=== PATIENT | male | born 1960 | race American Indian/Alaskan Native ===

== ENCOUNTER 2017-07-18 12:06 | Emergency (ER) | payer OTHER ==
[~2017-07-18] VITALS: Ht 162.6 cm; Wt 50.1 kg
[~2017-07-18 12:06] MED LIST: ALLOPURINOL300 MG PO; BENTYL10 MG PO; BUPROPION HCL150 M2 PO; BUPROPION XL150 MG PO; CENTRUM SILVER1 EAC2 PO; CLARITIN10 MG PO; FERROUS SU220 MG/52 PO; FERROUS SU300 MG/5 M PO; FLOMAX0.4 MG PO; KETOROLAC TROME10 MG PO; LORATADINE10 MG PO; METOPROLOL TART25 MG PO; MILK OF MA400 MG/5 M PO; ONDANSETRON ODT4 MG PO; OXYCODONE HCL10 MG PO; OXYCODONE-ACET1 EAC1 PO; PANTOPRAZOLE SO40 MG PO; PRILOSEC10 M1 PO; PRILOSEC10 M1 PT; PROTONIX40 MG PO
--- OUTSIDE RECORDS SUMMARY | 2017-07-18 12:43 | XMS | Clinical Summary ---
Demographics + + + | Address | [address] | | | [place] [address] | + + + | Home Phone | | + + + | Preferred Language | Unknown | + + + | Marital Status | Single | + + + | Druze Affiliation | ZEFERINO | + + + | Race | or | + + + | Ethnic Group | Not or | + + + Author + + + | Author | NON REVENUE LOCATIONS | + + + | Organization | NON REVENUE LOCATIONS | + + + | Address | Unknown | + + + | Phone | Unavailable | + + + Support +------+ +---------+ + | Name | Relationship | Address | Phone | +------+ +---------+ + ECON | Unknown | | +------+ +---------+ + Care Team Providers + +------+ + | Care Cold Press Operator Name | Role | Phone | + +------+ + | Ed Landis MD | PP | Unavailable | + +------+ + Source Comments EVETTE is fully live on both [facility] Ambulatory and [facility] InPatient.[facility] & [facility] Allergies + + + + + + | Active Allergy | Reactions | Severity | Noted | Comments | | | | | Date | | + + + + + + | Naproxen | Hives | | 03/21/20 | | | | | | 14 | | + + + + + + Current Medications + + + +---------+------+------+-------+ | Prescription | Sig. | Disp. | Refills | Star | End | Statu | | | | | | t | Date | s | | | | | | Date | | | + + + +---------+------+------+-------+ | buPROPion SR 150 | Take 150 mg by mouth | | | | | Activ | | mg oral tablet | two times daily. | | | | | e | | extended release | | | | | | | + + + +---------+------+------+-------+ | loratadine 10 mg | Take 10 mg by mouth | | | | | Activ | | oral tablet | once daily. | | | | | e | + + + +---------+------+------+-------+ | dicyclomine 10 mg | Take 20 mg by mouth | | | | | Activ | | oral | four times daily as | | | | | e | | capsuleIndications: | needed. Indications: | | | | | | | Irritable Bowel | Irritable Bowel | | | | | | | Syndrome | Syndrome | | | | | | + + + +---------+------+------+-------+ | multivitamin oral | Take 1 tablet by | | | | | Activ | | tablet | mouth once daily. | | | | | e | + + + +---------+------+------+-------+ | acetaminophen 325 | Take 1-2 tablets by | | | 07/20 | | Activ | | mg oral tablet | mouth every four | | | 220 | | e | | | hours as needed. | | | 17 | | | + + + +---------+------+------+-------+ | ascorbic acid, | Take 1 tablet by | | | 07/20 | | Activ | | vitamin C, 500 mg | mouth once daily. | | | 220 | | e | | oral tablet | | | | 17 | | | + + + +---------+------+------+-------+ | polyethylene | Mix 17 g in liquid | 119 g | | 07/20 | | Activ | | glycol 17 gram/dose | and drink once | | | 2/20 | | e | | oral powder | daily. | | | 17 | | | + + + +---------+------+------+-------+ | ondansetron 8 mg | Take 1 tablet by | 20 | 0 | 01/1 | | Activ | | oral tablet | mouth every eight | tablet | | 2/20 | | e | | | hours as needed for | | | 17 | | | | | nausea/vomiting. | | | | | | + + + +---------+------+------+-------+ | oxyCODONE, | Take 1 to 2 tablets | 30 | 0 | 01/1 | | Activ | | immediate release, 5 | by feeding tube | tablet | | 2/20 | | e | | mg oral tablet | route every six | | | 17 | | | | | hours as needed for | | | | | | | | moderate pain. For | | | | | | | | severe pain and | | | | | | | | discomfortTake stool | | | | | | | | softeners (such as | | | | | | | | miralax) while | | | | | | | | taking oxycodone | | | | | | + + + +---------+------+------+-------+ | omeprazole 2 mg/mL | Take 10 mL by | 600 mL | 0 | 07/20 | | Activ | | oral suspension | feeding tube route | | | 10/06 | | e | | (compound) | two times daily. | | | 17 | | | + + + +---------+------+------+-------+ | ferrous sulfate | Take 5 mL by mouth | 473 mL | 5 | 07/21 | | Activ | | 220 mg total salt | two times daily. | | | 10/06 | | e | | (44 mg elemental)/5 | | | | 17 | | | | mL oral solution | | | | | | | + + + +---------+------+------+-------+ Active Problems + + + | Problem | Noted Date | + + + | Benign esophageal stricture | 08/12/2016 | + + + | S/P dilatation of esophageal stricture | 08/12/2016 | + + + | Severe protein-calorie malnutrition (Sen: less than 60% of | 08/12/2016 | | standard weight) (HCC) | | + + + | Superior mesenteric artery syndrome (HCC) | 08/12/2016 | + + + | Bowel obstruction | 07/22/2016 | + + + | Adrenal mass (HCC) | 08/06/2014 | + + + Family History + + +------+ + | Medical History | Relation | Name | Comments | + + +------+ + | Heart Disease | Father | | [place] age 40's | + + +------+ + + +------+--------+ + | Relation | Name | Status | Comments | + +------+--------+ + | Father | | Alive | | + +------+--------+ + | Mother | | Alive | | + +------+--------+ + Social History + + + +--------+ + | Tobacco Use | Types | Packs/Day | Years | Date | | | | | Used | | + + + +--------+ + | Former Smoker | Cigarettes | 1 | 3 | Quit: 06/02/1974 | + + + +--------+ + + +---+---+---+ | Smokeless Tobacco: | | | | | Never Used | | | | + +---+---+---+ + + +---------+ + | Alcohol Use | Drinks/We | oz/Week | Comments | | | ek | | | + + +---------+ + | No | 0-1 | 0.0 - | 1-2 per month-mixed drinks | | | Standard | 0.5 | | | | drinks or | | | | | | | | | | equivalen | | | | | t | | | + + +---------+ + + + + | Sex Assigned at | Date Recorded | | | | + + + | Not on file | | + + + Last Filed Vital Signs + + + + | Vital Sign | Reading | Time Taken | + + + + | Blood Pressure | 112/79 | 09/17/2016 5:46 PM PST | + + + + | Pulse | 98 | 09/17/2016 4:50 PM PST | + + + + | Temperature | 36.7 C (98.1 F) | 09/17/2016 2:15 PM PST | + + + + | Respiratory Rate | 14 | 09/17/2016 5:46 PM PST | + + + + | Oxygen Saturation | 100% | 09/17/2016 5:46 PM PST | + + + + | Inhaled Oxygen | - | - | | Concentration | | | + + + + | Weight | 46.5 kg (102 lb 9.6 | 08/11/2016 3:39 PM PST | | | oz) | | + + + + | Height | 162.6 cm (5' 4") | 07/22/2016 3:38 AM PST | + + + + | Body Mass Index | 17.61 | 08/11/2016 3:39 PM PST | + + + + Plan of Treatment + + + + + | Health Maintenance | Due Date | Last Done | Comments | + + + + + | INFLUENZA VACCINE | | 05/01/2016, 07/02/2009, | | | (FLU SHOT) | 7 | 07/02/2004 | | + + + + + Results Not on filefrom Last 3 Months
[2017-07-18] MEDS ORDERED: ZOFRAN ODT4 MG PO (13:03)
== END 2017-07-18 13:07 | disposition home or self-care (01) ==
LOC: ED 12:06
DX: K21.9 Gastro-esophageal reflux disease without esophagitis (principal); Z88.8 Allergy status to other drugs, medicaments and biological substances; Z91.018 Allergy to other foods; Z79.899 Other long term (current) drug therapy
CPT/HCPCS: 99283

== ENCOUNTER 2017-11-11 11:11 | Emergency (ER) | payer OTHER ==
[~2017-11-11] VITALS: Ht 162.6 cm; Wt 45.6 kg
--- OUTSIDE RECORDS SUMMARY | ~2017-11-11 | XMS | Clinical Summary ---
Demographics + + + | Address | [address] | | | [place] [address] | + + + | Home Phone | | + + + | Preferred Language | Unknown | + + + | Marital Status | Single | + + + | Latter Day Affiliation | ZEFERINO | + + + [...] | + + + Support + + +---------+ + | Name | Relationship | Address | Phone | + + +---------+ + | Yennifer Lester | ECON | Unknown | | + + +---------+ + Care Team Providers + +------+ + | Care Track Laying Machine Operator Name | Role | Phone | + +------+ + | Ed Landis MD | PP | Unavailable | + +------+ + Source Comments EV[facility]TE is fully live [facility] & [facility] Allergies + + + + + + [...] | mouth once daily. | | | 2/20 | | e | | oral tablet [...] | Heart Disease | Father | | [place] age 40's | + + +------+ + [...] 07/02/2009, | | | (FLU SHOT) | 8 | 07/02/2004 | | + + + + + Results Not on filefrom Last 3 Months
--- OUTSIDE RECORDS SUMMARY | ~2017-11-11 | XMS | Clinical Summary ---
Demographics + + + | Address | [address] | | | [place] [address] | + + + | Home Phone [...] Team Providers + +------+ + | Care Messaging Architect Name | Role | Phone | + +------+ + | Ed Landis MD | PP | Unavailable | + +------+ + Source Comments [facility] Allergies + + + + + + [...] | Heart Disease | Father | | [place] age 40's | + + +------+ + [...]
[~2017-11-11 11:11] MED LIST changes: +ZOFRAN ODT4 MG PO
[2017-11-11] MEDS ORDERED: PEPCID20 MG PO (13:37)
== END 2017-11-11 13:48 | disposition home or self-care (01) ==
LOC: ED 11:11
DX: R10.13 Epigastric pain (principal); Z88.8 Allergy status to other drugs, medicaments and biological substances; Z91.018 Allergy to other foods; Z91.02 Food additives allergy status; Z79.899 Other long term (current) drug therapy
CPT/HCPCS: 80053; 81001; 82150; 83690; 85025; 96374; 96375; 96376; 99283; J1170; J2405; J7030

== ENCOUNTER 2019-04-11 12:10 | Emergency (ER) | payer OTHER ==
[~2019-04-11] VITALS: Ht 162.6 cm; Wt 45.6 kg
[~2019-04-11 12:10] MED LIST changes: +OMEPRAZOLE20 MG PO; +ONDANSETRON ODT8 MG PO; +PEPCID20 MG PO
--- OUTSIDE RECORDS SUMMARY | 2019-04-11 12:12 | XMS ---
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 \T\middot;\T\nbsp; [facility]. \T\middot;\ T\nbsp; [facility] CAN SEE PATIENTS SAME DAY FOR APTS IF PATIENT CALLS FIRST THING IN THE MORNING. 11/11/2017 [facility] - Patient was recently seen by PCP on 11/02/17. Pain is currently being managed by PCP Dr Landis. - Recently prescribed 10 hydrocodone 5/325 on 11/02/17 by PCP. - Patient currently has a referral to a GI doctor at [facility] since patient does not want to be seen by Dr Lewis. Care Recommendation: This patient has had 5 or more Emergency Department visits in the last 12 months. Patient requires education on the scope and purpose of the ED as an acute care provider not a Primary Care Provider and should not be utilized for chronic conditions. If patient returns to ED please contact Community Health WorkerIsabelle at [phone]. These are guidelines and the provider should exercise clinical judgment when providing care. E.D. VISIT COUNT (12 MO.) 2 [facility] TOTAL 2 NOTE: Visits indicate total known visits. ED/UCC VISIT TRACKING (12 MO.) 04/11/2019 12:[facility] [place] TYPE: Emergency COMPLAINT: - ABD PAIN, VOMITING 01/31/2019 11:[facility] [place] TYPE: Emergency COMPLAINT: - ABD PAIN DIAGNOSES: - Allergy status to analgesic agent status - Spinal muscular atrophy, unspecified - Allergy to other foods - Anemia, unspecified - Unspecified abdominal pain - Acute gastritis without bleeding INPATIENT VISIT TRACKING (12 MO.) No inpatient visits to display in this time frame [email or web address]
[2019-04-11] MEDS ORDERED: MIRALAX17 GM PO (12:29)
[2019-04-11] MEDS ORDERED: NORCO 5-325 TA1 EACH PO (16:42)
[2019-04-11] MEDS ORDERED: PROMETHAZINE HC25 M1 PO (16:42)
--- NOTE | 2019-04-11 18:16 | EKG ---
[facility] [address] [place] [address] Signed Sinus tachycardia Biatrial enlargement Abnormal ECG When compared with ECG of 21-JUL-2016 17:13, Nonspecific T wave abnormality no longer evident in Inferior leads Confirmed by BIBIANA BRYANT MD ([id number]) on 04/11/2019 6:16:48 PM Electronically Signed By: BIBIANA BYRANT MD 04/11/19 1816 PATIENT NAME: COREEN SEGOVIA Electrocardiogram DATE OF : 64 PHYSICIAN: BIBIANA BRYANT MD REPORT #: [id number] REPORT IS CONFIDENTIAL AND NOT TO BE RELEASED WITHOUT AUTHORIZATION
== END 2019-04-11 17:20 | disposition home or self-care (01) ==
LOC: ED 12:10
DX: R10.13 Epigastric pain (principal); R11.10 Vomiting, unspecified; Z91.018 Allergy to other foods; Z88.6 Allergy status to analgesic agent; Z79.899 Other long term (current) drug therapy
CPT/HCPCS: 74150; 74160; 74177; 80053; 83690; 85025; 93005; 93010; 96361; 99284-25; J1170; J2765; J7030; Q9967

== ENCOUNTER 2019-07-17 09:51 | Emergency (ER) | payer OTHER ==
[~2019-07-17] VITALS: Ht 162.6 cm; Wt 45.6 kg
--- OUTSIDE RECORDS SUMMARY | ~2019-07-17 | XMS | Clinical Summary ---
Demographics + + + | Address | [address] | | | [place] [address] | + + + | Home Phone | | + + + | Preferred Language | Unknown | + + + | Marital Status | Single | + + + | Buddhism Affiliation | ZEFERINO | + + + [...] | Unavailable | + + + Support + + + + + | Name | Relationship | Address | Phone | + + + + + | Yennifer Batista | ECON | [address] | | | | | [place] | | | | | [address] | | + + + + + Care Team Providers + +------+ + | Care Cooling Tower Technician Name | Role | Phone | + +------+ + | Ed Landis MD | PCP | | + +------+ + Source Comments EVETTE is fully live on both [facility] Ambulatory and [facility] InPatient.[facility] & [facility] Allergies + + + + + + | Active Allergy | Reactions | Severity | Noted | Comments | | | | | Date | | + + + + + + | Naproxen | Hives | | 03/21/20 | | | | | | 14 | | + + + + + + Medications + + + +---------+------+------+-------+ | Medication | Sig | Dispensed | Refills | Star | End | Statu | | | | | | t | Date | s | | | | | | Date | | | + + + +---------+------+------+-------+ | buPROPion SR 150 | Take 150 mg by mouth | | 0 | | | Activ | | mg oral tablet | two times daily. | | | | | e | | extended release | | | | | | | + + + +---------+------+------+-------+ | loratadine 10 mg | Take 10 mg by mouth | | 0 | | | Activ | | oral tablet | once daily. | | | | | e | + + + +---------+------+------+-------+ | omeprazole | Take 1 tablet by | 28 | 5 | 08/0 | | Activ | | magnesium (PRILOSEC | mouth once daily. | tablet | | 08/08 | | e | | OTC) 20 mg oral | Indications: Erosive | | | 18 | | | | tablet,delayed | Esophagitis | | | | | | | release | | | | | | | | (DR/EC)Indications: | | | | | | | | erosive esophagitis | | | | | | | + + + +---------+------+------+-------+ | special mouthwash | Take 5 mL by mouth | 300 mL | 0 | 06/19 | | Activ | | (Maalox/lidocaine/di | four times daily as | | | 09/08 | | e | | phenhydrAMINE) oral | needed. | | | 18 | | | | suspension | | | | | | | | (compound)Indication | | | | | | | | s: Esophageal | | | | | | | | stenosis | | | | | | | + + + +---------+------+------+-------+ | special mouthwash | Take 5 milliliters | 300 mL | 0 | / | | Activ | | (Maalox/lidocaine/di | by mouth four times | | | 2/20 | | e | | phenhydrAMINE) oral | daily as needed. | | | 18 | | | | suspension | | | | | | | | (compound) | | | | | | | + + + +---------+------+------+-------+ Active Problems + + + | Problem | Noted Date | + + + | Gastroesophageal reflux disease with esophagitis | 02/17/2018 | + + + | Polyp of colon | 01/08/2018 | + + + | Benign esophageal stricture | 08/12/2016 | + + + | S/P dilatation of esophageal stricture | 08/12/2016 | + + + | Severe protein-calorie malnutrition (Sen: less than 60% of | 08/12/2016 | | standard weight) | | + + + | Superior mesenteric artery syndrome | 08/12/2016 | + + + | Bowel obstruction | 07/22/2016 | + + + | Adrenal mass | 08/06/2014 | + + + Encounters +--------+ + + + + | Date | Type | Specialty | Care Team | Description | +--------+ + + + + | 05/30/ | Transcribe | Gastroenterology | Transcribe | | | 2019 | Orders | | Encounter, Provider, | | | | | | MD | | +--------+ + + + + | 05/23/ | Documentati | Gastroenterology | Lab, Gi Procedure | | | 2019 | on | | | | +--------+ + + + + from Last 3 Months Family History + + +------+ + | Medical History | Relation | Name | Comments | + + +------+ + | Heart Disease | Father | | [place] age 40's | + + +------+ + | Anesthesia | Neg Hx | | | + + +------+ + + +------+--------+ [...] | | | + +---+---+---+ + + + + + | Alcohol Use | Drinks/Week | oz/Week | Comments | + + + + + | No | 0-1 Standard | 0.0 - 0.8 | 1-2 per month-mixed | | | drinks or equivalent | | drinks | + + + + + + + + | Sex Assigned at | Date Recorded | | | | + + + | Not on file | | + + + + + + + | Job Start Date | Occupation | Industry | + + + + | Not on file | Not on file | Not on file | + + + + + + + + | Travel History | Travel Start | Travel End | + + + + + + | No recent travel history available. | + + Last Filed Vital Signs + + + + + | Vital Sign | Reading | Time Taken | Comments | + + + + + | Blood Pressure | 142/91 | 06/30/2018 5:09 PM | | | | | PST | | + + + + + | Pulse | 70 | 06/30/2018 5:09 PM | | | | | PST | | + + + + + | Temperature | 36.4 C (97.5 F) | 06/30/2018 5:09 PM | | | | | PST | | + + + + + | Respiratory Rate | 12 | 06/30/2018 4:43 PM | | | | | PST | | + + + + + | Oxygen Saturation | 100% | 06/30/2018 5:09 PM | | | | | PST | | + + + + + | Inhaled Oxygen | - | - | | | Concentration | | | | + + + + + | Weight | 48.5 kg (107 lb) | 06/30/2018 2:00 PM | | | | | PST | | + + + + + | Height | 165.1 cm (5' 5") | 06/30/2018 2:00 PM | | | | | PST | | + + + + + | Body Mass Index | 17.81 | 06/30/2018 2:00 PM | | | | | PST | | + + + + + Plan of Treatment +--------+ + + + + | Date | Type | Specialty | Care Team | Description | +--------+ + + + + | 11/02/ | Telephone-S | Pre-operative | | | | 2020 | cheduled | Medicine | | | +--------+ + + + + | 11/10/ | Hospital | | Efrain Mcmullen MD | | | 2019 | Encounter | | [address] | | | | | | [place], | | | | | | [place] [address] | | | | | | [phone] | | | | | | | | +--------+ + + + + | 11/10/ | Appointment | Procedural Care Unit | | | | 2019 | | | | | +--------+ + + + + | 11/10/ | Appointment | Gastroenterology | Efrain Mcmullen MD | | | 2019 | | | [address] | | | | | | [place], | | | | | | [place] [address] | | | | | | [phone] | | | | | | | | +--------+ + + + + + + + + + | Health Maintenance | Due Date | Last Done | Comments | + + + + + | Influenza (Flu) | | 06/16/2017, 05/01/2016, | | | vaccination (#1) | 9 | 08/22/2013, Additional history | | | | | exists | | + + + + + | Pneumococcal | Aged Out | 05/19/2014, 05/19/2014, | No longer eligible | | vaccination | | 12/27/2007 | based on patient's | | | | | age to complete this | | | | | topic | + + + + + Results Not on filefrom Last 3 Months Insurance + +--------+ +--------+-------+---------+--------+ | Payer | Benefi | Subscriber | Effect | Phone | Address | Type | | | t Plan | ID | dunia | | | | | | / | | Dates | | | | | | Group | | | | | | + +--------+ +--------+-------+---------+--------+ | HEALTH AND SAFETY INSPECTOR MEDICAID | HEALTH AND SAFETY INSPECTOR | xxxxxxxx | | | | Medica | | | [place] | | 014-Pr | | | id | | | [place] | | esent | | | | + +--------+ +--------+-------+---------+--------+ + +--------+ +--------+ + + | Guarantor Name | Accoun | Relation to | Date | Phone | Billing Address | | | t Type | Patient | of | | | | | | | | | | + +--------+ +--------+ + + | Franck Batista | Person | Self | [birth year] | [address] | | | [place] | | 1961 | [phone] | [place] [address] | | | doni | | | 9 (Home) | | + +--------+ +--------+ + + Advance Directives + + + + + | Code Status | Date | Date | Comments | | | Activated | Inactivated | | + + + + + | Full Code | 06/30/2018 | 07/01/2018 | | | | 1:59 PM | 12:01 AM | | + + + + + + + + +---+ | | | | | + + + +---+ | Full Code | 08/11/2016 | 08/11/2016 | | | | 1:09 PM | 9:19 PM | | + + + +---+ + + + +---+ | | | | | + + + +---+ | Full Code | 07/25/2016 | 08/01/2016 | | | | 9:40 AM | 9:59 PM | | + + + +---+ + + + +---+ | | | | | + + + +---+ | Full Code | 08/17/2014 | 08/22/2014 | | | | 10:33 AM | 4:51 PM | | + + + +---+
--- OUTSIDE RECORDS SUMMARY | ~2019-07-17 | XMS | Encounter Summary ---
Demographics + + + | Address | [address] | | | [place] [address] | + + + | Home Phone | | + + + | Preferred Language | Unknown | + + + | Marital Status | Single | + + + | Pentecostal Affiliation | ZEFERINO | + + + | Race | or | + + + | Ethnic Group | Not or | + + + Author + + + | Author | [facility] [employer] [facility] | + + + | Organization | [facility] [employer] [facility] | + + + | Address | Unknown | + + + | Phone | Unavailable | + + + Support + + + + + | Name | Relationship | Address | Phone | + + + + + | Yennifer Batista | ECON | [address] | | | | | [place] | | | | | [address] | | + + + + + Care Team Providers + +------+ + | Care Director Of Home Economics Name | Role | Phone | + +------+ + | Ed Landis MD PCP | | + +------+ + Encounter Details +--------+ + + + + | Date | Type | Department | Care Team | Description | +--------+ + + + + | 08/24/ | Telephone | Urology at [facility] | Theresa Beyer, | | | 2015 | | [address] | [address] [place] [address] | | | | | Mailcode: [id number] | [place] [address] | | | | | [facility] | [phone] | | | | | and [place], | | | | | | [facility] | | | | | | [place], [place] | | | | | | [address] | | | | | | [phone] | | | +--------+ + + + + Social History + + + +--------+ [...] | + + + + + | Yes | 0-1 Standard | 0.0 - 0.8 [...] recent travel history available. | + + documented as of this encounter Plan of Treatment +--------+ + + + [...] | | | | | | [place], | | | | | | [place] [address] | | | | | | [phone] | | | | | | | | +--------+ + + + + | 11/10/ | Appointment | Procedural Care Unit | | | | 2019 | | | | | +--------+ + + + + | 11/10/ | Appointment | Gastroenterology | Efrain Mcmullen MD | | | 2019 | | | [address] | | | | | | [place], | | | | | | [place] [address] | | | | | | [phone] | | | | | | | | +--------+ + + + + documented as of this encounter Visit Diagnoses Not on filedocumented in this encounter"
--- OUTSIDE RECORDS SUMMARY | ~2019-07-17 | XMS | Clinical Summary ---
Demographics + + + | Address | [address] | | | [place] [address] | + + + | Home Phone | | + + + | Preferred Language | Unknown | + + + | Marital Status | Single | + + + | Congregational Affiliation | ZEFERINO | + + + [...] + | Yennifer Batista | ECON | [address] | | | | | [place] | | | | | [address] | | + + + + + Care Team Providers + +------+ + | Care Supervisor Ore Dressing Name | Role | Phone | + +------+ + | Ed Landis MD | PCP | | + +------+ + Source Comments EVETTE is fully live on both Epic[facility] Ambulatory and Epic[facility] InPatient.[facility] & [facility] Allergies + + + + [...] | Heart Disease | Father | | [place] age 40's | + + +------+ + [...] | | | | | [place], | | | | | | [place] [address] | | | | | | [phone] | | | | | | | [...] | | | | | [place], | | | | | | [place] [address] | | | | | | [phone] | | | | | | | [...] | | | + +--------+ +--------+-------+---------+--------+ | 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
--- OUTSIDE RECORDS SUMMARY | ~2019-07-17 | XMS | Encounter Summary ---
Demographics + + + | Address | [address] | | | [place] [address] | + + + | Home Phone | | + + + | Preferred Language | Unknown | + + + | Marital Status | Single | + + + | Bahai Affiliation | ZEFERINO | + + + | Race | or | + + + | Ethnic Group | Not or | + + + Author + + + | Author | [facility] | + + + | Organization | [facility] [employer] [facility] | + + + | Address | Unknown | + + + | Phone | Unavailable | + + + Support + + + + + | Name | Relationship | Address | Phone | + + + + + | Yennifer Batista | ECON | [address] | | | | | [place] | | | | | [address] | | + + + + + Care Team Providers + +------+ + | Care Procurement Buyer Name | Role | Phone | + +------+ + | Ed Landis MD | PCP | | + +------+ + Encounter Details +--------+ + + + + | Date | Type | Department | Care Team | Description | +--------+ + + + + | 02/24/ | Inside | Endoscopic | Dar Dalton MD | | | 2018 | Referral | Procedural Unit at | [address] | | | | Order | [address] | [place], [place] | | | | | [place] | [address] | | | | | Mailcode: [id number] | [phone] | | | | | [place] | | | | | | [address] [place] | | | | | | [address] | | | | | | [phone] | | | +--------+ + + + [...] | | | | | | [place] [address] | | | | | | [phone] | | | | | | | | +--------+ + + + + | 11/10/ | Appointment | Procedural Care Unit | | | | 2019 | | | | | +--------+ + + + + | 11/10/ | Appointment | Gastroenterology | Efrain Mcmullen MD | | | 2020 | | | [address] | | | | | | [place], | | | | | | [place] [address] | | | | | | [phone] | | | | | | | | +--------+ + + + + documented as of this encounter Results COLONOSCOPY (06/30/2018 3:47 PM PST) + + | Specimen | + + | | + + + + --+ | Narrative | Performed A t | + + --+ | MRN: | [facility] | | [id number] Date: 06/30/2018Patient Name: Franck Mares #: | ENDOSCOPY | | [id number] of : 1960CSN: [id number] Type: | | | AmbulatoryRoom: GI 3Procedure: ColonoscopyIndications: | | | Screening for colorectal malignant neoplasmProviders: | | | RACHELLE JONES MD (Fellow), JOMAR CONRAD MD | | | (Doctor), CHIVO DONG RN (Nurse), | | | CHERRY MEJIA RN (Nurse), GENECREST | | | GEMINI (Block And Case Maker)Referring MD: DAR DALTNO, MDRequesting | | | Provider: Medicines: Monitored Anesthesia | | | CareComplications: No immediate complications.Procedure: | | | Pre-Anesthesia Assessment: - | | | The risks and benefits of the procedure and the | | | sedation options and risks were discussed with the | | | patient. All questions were answered and | | | informed consent was obtained. | | | - Patient identification and proposed procedure | | | were verified prior to the procedure by | | | the physician, the nurse, the | | | manager implementation and the medical laboratory technicians. The procedure | | | was verified in the procedure room. | | | Prior to the procedure, a History and Physical with | | | airway assessment was performed (see patient record), | | | and patient medications and allergies | | | were reviewed. The risks and benefits | | | of the procedure and the sedation | | | options and risks were discussed. All questions were | | | answered and informed consent was obtained. After | | | reviewing the risks and benefits, the | | | patient was deemed in satisfactory | | | condition to undergo the procedure. | | | Immediately prior to administration of medications, the | | | patient was re-assessed for adequacy to receive | | | sedatives. The heart rate, respiratory | | | rate, oxygen saturations, blood | | | pressure, adequacy of pulmonary | | | ventilation, and response to care were monitored | | | throughout the procedure. The physical status of the | | | patient was re-assessed after the procedure. | | | The procedure was aborted. The | | | colonoscope was not inserted. | | | Medications were given. The colonoscopy | | | was performed without difficulty. The | | | patient tolerated the procedure well.Estimated Blood Loss: | | | Estimated blood loss: none.Findings: The perianal exam findings | | | include solid stool in rectal vault.Impression: - Solid | | | stool in rectal vault found on perianal exam. | | | - Colonoscopy aborted. - No | | | specimens collected.Recommendation: - Discharge patient to | | | home (with escort). - Resume regular | | | diet today. - Repeat colonoscopy in 1 | | | year because the bowel preparation was | | | poor.Attending Participation: I was present and participated | | | during the entire procedure, including non-goldman portions.JOMAR | | | MD ANAMARIA06/30/2018 4:44:26 [facility] report has been signed | | | electronically.RACHELLE JONES MDNumber of Addenda: 0Note Initiated | | | On: 06/30/2018 3:47 [facility] Letter to: ED M. QUAEMPTS | | | I was present and participated during the entire procedure, including | | | non-goldman portions. | | |JOMAR CONRAD MD | | |06/30/2018 4:44:26 PM | | |This report has been signed electronically. | | |RACHELLE JONES MD | | |Number of Addenda: 0 | | |Note Initiated On: 06/30/2018 3:47 PM | | |CC Letter to: | | | ED NisreenFiorella LANDIS | | + + --+ + +---------+ + + | Performing | Address | City/State/Zipcode | Phone Number | | Organization | | | | + +---------+ + + | [facility] | | | | + +---------+ + + EGD (06/30/2018 3:45 PM PST) + + | Specimen | + + | | + + + + --+ | Narrative | Performed A t | + + --+ | MRN: | [facility] | | [id number] Date: 06/30/2018Patient Name: Franck Mares #: | ENDOSCOPY | | [id number] of : 1960CSN: [id number] Type: | | | AmbulatoryRoom: GI 3Procedure: Upper GI | | | endoscopyIndications: Dysphagia, Stenosis of the | | | esophagusProviders: RACHELLE JONES MD (Fellow), | | | JOMAR CONRAD MD (Doctor), CHIVO Flores | | | JARROD DONG (Nurse), CHERRY MEJIA, | | | RN (Nurse)Referring MD: PETR DE LUNAequesting Provider: | | | Medicines: Monitored Anesthesia CareComplications: | | | No immediate complications.Procedure: | | | Pre-Anesthesia Assessment: - The risks | | | and benefits of the procedure and the | | | sedation options and risks were discussed with the | | | patient. All questions were answered and informed | | | consent was obtained. | | | - Patient identification and proposed procedure were | | | verified prior to the procedure by the physician, | | | the nurse, the manager implementation and the | | | medical laboratory technicians. The procedure was verified | | | in the procedure room. Prior to the | | | procedure, a History and Physical with | | | airway assessment was performed (see patient record), | | | and patient medications and allergies were reviewed. | | | The risks and benefits of the procedure | | | and the sedation options and risks | | | were discussed. All questions were | | | answered and informed consent was obtained. After | | | reviewing the risks and benefits, the patient was deemed | | | in satisfactory condition to undergo the | | | procedure. Immediately prior to | | | administration of medications, the | | | patient was re-assessed for adequacy to receive | | | sedatives. The heart rate, respiratory rate, oxygen | | | saturations, blood pressure, adequacy of | | | pulmonary ventilation, and response to | | | care were monitored throughout the | | | procedure. The physical status of the | | | patient was re-assessed after the procedure. | | | The Olympus GIF-H190 Endoscope #[id number] was introduced | | | through the mouth, and advanced to the third | | | part of duodenum. The upper GI | | | endoscopy was accomplished without | | | difficulty. The patient tolerated the procedure | | | well.Estimated Blood Loss: Estimated blood loss: | | | none.Findings: LA Grade C (one or more mucosal breaks continuous | | | between tops of 2 or more mucosal folds, less than 75% | | | circumference) esophagitis with no bleeding was found 28 to 30 | | | cm from the incisors. One benign-appearing, intrinsic stenosis | | | was found 30 to 31 cm from the incisors. This stenosis was | | | severe (stenosis; an endoscope cannot pass) and measured 7 mm | | | (inner diameter) x less than one cm (in length). The stenosis | | | was traversed after dilation. A TTS dilator was passed through | | | the scope. Dilation with a 12-13.5-15 mm balloon dilator was performed | | | to 15 mm. A 7 cm hiatal hernia was present. The | | | entire examined stomach was normal. The examined duodenum was | | | normal.Impression: - LA Grade C reflux esophagitis. | | | - Benign-appearing esophageal stenosis. | | | Likely peptic. Dilated to 15 mm. | | | - 7 cm hiatal hernia. | | | - Normal stomach. - Normal | | | examined duodenum. - No specimens | | | collected.Recommendation: - Discharge patient to home (with | | | escort). - Resume regular diet today. | | | - Perform routine esophageal manometry at | | | appointment to be scheduled. | | | - Perform an esophagram at appointment to be | | | scheduled. - Refer to a surgeon, to | | | discuss fundoplication, pending above | | | testing.Attending Participation: I was present and participated | | | during the entire procedure, including non-goldman portions.JOMAR | | | MD ANAMARIA06/30/2018 4:43:02 PMThis report has been signed | | | electronically.RACHELLE JONES MDNumber of Addenda: 0Note Initiated | | | On: 06/30/2018 3:45 [facility] Letter to: ED LANDIS | | | above testing. | | |Attending Participation: | | | I was present and participated during the entire procedure, including | | | non-goldman portions. | | |JOMAR CONRAD MD | | |06/30/2018 4:43:02 PM | | |This report has been signed electronically. | | |RACHELLE JONES MD | | |Number of Addenda: 0 | | |Note Initiated On: 06/30/2018 3:45 PM | | |CC Letter to: | | | ED LANDIS | | + + --+ + +---------+ + + | Performing | Address | City/State[facility] | Phone Number | | Organization | | | | + +---------+ + + | [facility] | | | | + +---------+ + + documented in this encounter Visit Diagnoses + + | Diagnosis | + + | Benign esophageal stricture - Primary Stricture and stenosis of esophagus | + + | Gastro-esophageal reflux disease with esophagitis Reflux esophagitis | + + | Adenomatous polyp of ascending colon | + + documented in this encounter"
--- OUTSIDE RECORDS SUMMARY | ~2019-07-17 | XMS | Encounter Summary ---
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 Associated Diagnoses | Order Schedule | | | | ty | | | + + +--------+ + + | COMMUNICATION TO [facility] | Procedures | Routin | Preop examination | Ordered: 08/04/2014 | | LAB DRAW | | e | Adrenal mass (HCC) | | + + +--------+ + + documented as of this encounter Procedures + +--------+ + + + | Procedure Name | Priori | Date/Time | Associated Diagnosis | Comments | | | ty | | | | + +--------+ + + + | DE COLLECTION VENOUS | Routin | 08/04/2014 | Adrenal mass (HCC) | | | BLOOD,VENIPUNCTURE | e | 3:56 PM | | | | | | PST | | | + +--------+ + + + | HEMOGLOBIN A1C, POC | Routin | 08/04/2014 | Preop examination | Results for this | | | e | 3:22 PM | Adrenal mass (HCC) | procedure are in the | | | | PST | | results section. | + +--------+ + + + | ANTIBODY SCREEN | Routin | 08/04/2014 | Preop examination | Results for this | | | e | 3:08 PM | Adrenal mass (HCC) | procedure are in the | | | | PST | | results section. | + +--------+ + + + | TYPE AND SCREEN | Routin | 08/04/2014 | Preop examination | Results for this | | | e | 3:08 PM | Adrenal mass (HCC) | procedure are in the | | | | PST | | results section. | + +--------+ + + + | ABO & RH TYPE | Routin | 08/04/2014 | Preop examination | Results for this | | | e | 3:08 PM | Adrenal mass (HCC) | procedure are in the | | | | PST | | results section. | + +--------+ + + + | CBC (HEMOGRAM) ONLY | Routin | 08/04/2014 | Preop examination | Results for this | | | e | 3:07 PM | Adrenal mass (HCC) | procedure are in the | | | | PST | | results section. | + +--------+ + + + | INR | Routin | 08/04/2014 | Preop examination | Results for this | | | e | 3:07 PM | Adrenal mass (HCC) | procedure are in the | | | | PST | | results section. | + +--------+ + + + | COMPLETE METABOLIC | Routin | 08/04/2014 | Preop examination | Results for this | | SET | e | 3:07 PM | Adrenal mass (HCC) | procedure are in the | | (NA,K,CL,CO2,BUN,CRE | | PST | | results section. | | AT,GLUC,CA,AST,ALT,B | | | | | | LEANNA TOTAL,ALK | | | | | | PHOS,ALB,PROT TOTAL) | | | | | + +--------+ + + + | CBC ONLY | Routin | 08/04/2014 | Preop examination | Results for this | | | e | 3:07 PM | Adrenal mass (HCC) | procedure are in the | | | | PST | | results section. | + +--------+ + + + documented in this encounter Results HEMOGLOBIN A1C,POC (08/04/2014 3:22 PM PST) + +-------+ + + + | Component | Value | Ref Range | Performed | Pathologist | | | | | At | Signature | + +-------+ + + + | HEMOGLOBIN | 5.0 | 4.0 - 5.7 % | [facility], | | | A1C,POC | | | POINT OF | | | | | | CARE TESTS | | + +-------+ + + + + + | Specimen | + + | Blood | + + + + + + + | Performing | Address | City/State/Zipcode | Phone Number | | Organization | | | | + + + + + | [facility] | [address] | [place] [address] | | | OF CARE TESTS | | | | + + + + + ANTIBODY SCREEN (08/04/2014 3:08 PM PST) + + + + + + | Component | Value | Ref Range | Performed | Pathologist | | | | | At | Signature | + + + + + + | Antibody | Negative | | [facility] | | | Screen | | | LABORATORY | | | | | | SERVICES, | | | | | | TRANSFUSION | | | | | | MEDICINE | | + + + + + + + + | Specimen | + + | Blood - Blood | + + + + + + + | Performing | Address | City/State/Zipcode | Phone Number | | Organization | | | | + + + + + | [facility] | [address] | [place] [address] | | | SERVICES, | [address] | | | | TRANSFUSION MEDICINE | | | | + + + + + ABO & RH TYPE (08/04/2014 3:08 PM PST) + + + + + + | Component | Value | Ref Range | Performed | Pathologist | | | | | At | Signature | + + + + + + | ABO Group | O | | [facility] | | | | | | LABORATORY | | | | | | SERVICES, | | | | | | TRANSFUSION | | | | | | MEDICINE | | + + + + + + | Rh Type | Positive | | [facility] | | | | | | LABORATORY | | | | | | SERVICES, | | | | | | TRANSFUSION | | | | | | MEDICINE | | + + + + + + + + | Specimen | + + | Blood - Blood | + + + + + + + | Performing | Address | City/State/Zipcode | Phone Number | | Organization | | | | + + + + + | [facility] | [address] | [place] [address] | | | SERVICES, | [address] | | | | TRANSFUSION MEDICINE | | | | + + + + + CBC (HEMOGRAM) ONLY (08/04/2014 3:07 PM PST) + + + + + + | Component | Value | Ref Range | Performed | Pathologist | | | | | At | Signature | + + + + + + | WHITE CELL | 6.15 | 4.40 - 11.00 | [facility] | | | COUNT | | K/cu mm | LABORATORY | | | | | | SERVICES, | | | | | | CORE | | + + + + + + | RED CELL | 5.45 | 4.50 - 6.00 | [facility] | | | COUNT | | M/cu mm | LABORATORY | | | | | | SERVICES, | | | | | | CORE | | + + + + + + | HEMOGLOBIN | 12.3 (L) | 13.5 - 17.5 | [facility] | | | | | g/dL | LABORATORY | | | | | | SERVICES, | | | | | | CORE | | + + + + + + | HEMATOCRIT | 40.2 (L) | 41.0 - 53.0 % | [facility] | | | | | | LABORATORY | | | | | | SERVICES, | | | | | | CORE | | + + + + + + | MCV | 73.8 (L) | 80.0 - 96.0 fL | [facility] | | | | | | LABORATORY | | | | | | SERVICES, | | | | | | CORE | | + + + + + + | MCHC | 30.6 | 33.0 - 35.5 | [facility] | | | | | g/dL | LABORATORY | | | | | | SERVICES, | | | | | | CORE | | + + + + + + | RDW SD | 48.3 (H) | 35.1 - 46.3 fL | [facility] | | | | | | LABORATORY | | | | | | SERVICES, | | | | | | CORE | | + + + + + + | PLATELET | 366 | 150 - 400 K/cu | [facility] | | | COUNT | | mm | LABORATORY | | | | | | SERVICES, | | | | | | CORE | | + + + + + + | MPV | 9.5 (L) | 9.7 - 12.3 fL | [facility] | | | | | | LABORATORY | | | | | | SERVICES, | | | | | | CORE | | + + + + + + | NRBC% | 0.0 | 0.0 - 0.3 % | [facility] | | | | | | LABORATORY | | | | | | SERVICES, | | | | | | CORE | | + + + + + + | NRBC# | 0.00 | 0.00 - 0.02 | [facility] | | | | | K/cu mm | LABORATORY | | | | | | SERVICES, | | | | | | CORE | | + + + + + + + + | Specimen | + + | Blood - Blood | + + + + + + + | Performing | Address | City/State/Zipcode | Phone Number | | Organization | | | | + + + + + | [facility] | [address] | [place] [address] | | | SERVICES, CORE | [address] | | | + + + + + INR (08/04/2014 3:07 PM PST) + +-------+ + + + | Component | Value | Ref Range | Performed | Pathologist | | | | | At | Signature | + +-------+ + + + | INR | 0.99 | 0.90 - 1.20 INR | [facility] | | | | | | LABORATORY | | | | | | SERVICES, | | | | | | CORE | | + +-------+ + + + + + | Specimen | + + | Blood - Blood | + + + + + | Narrative | Performed At | + + + | INR Therapeutic ranges for full anticoagulation: INR for | [facility] | | Venous Thromboembolism (2.0 - 3.0) INR INR for | LABORATORY | | most patients with mech. valves (2.5 - 3.5) INR | SERVICES, CORE | + + + + + + + + | Performing | Address | City/State/Zipcode | Phone Number | | Organization | | | | + + + + + | [facility] | [address] | [place] [address] | | | SERVICES, CORE | [address] | | | + + + + + COMPLETE METABOLIC SET (NA,K,CL,CO2,BUN,CREAT,GLUC,CA,AST,ALT,BILI TOTAL,ALK PHOS,ALB,PROT TOTAL) (08/04/2014 3:07 PM PST) + +---------+ + + + | Component | Value | Ref Range | Performed | Pathologist | | | | | At | Signature | + +---------+ + + + | GLUCOSE, | 65 | 60 - 99 mg/dL | [facility] | | | PLASMA | | | LABORATORY | | | (LAB) | | | SERVICES, | | | | | | CORE | | + +---------+ + + + | BUN, PLASMA | 8 | 6 - 20 mg/dL | [facility] | | | (LAB) | | | LABORATORY | | | | | | SERVICES, | | | | | | CORE | | + +---------+ + + + | CREATININE | 0.87 | 0.70 - 1.30 | [facility] | | | PLASMA | | mg/dL | LABORATORY | | | (LAB) | | | SERVICES, | | | | | | CORE | | + +---------+ + + + | EGFR | >60 | >60 mL/min | [facility] | | | - | | | LABORATORY | | | IVORIAN | | | SERVICES, | | | | | | CORE | | + +---------+ + + + | EGFR NON | >60 | >60 mL/min | [facility] | | | -EFRA | | | LABORATORY | | | RICAN | | | SERVICES, | | | | | | CORE | | + +---------+ + + + | SODIUM, | 143 | 136 - 145 | [facility] | | | PLASMA | | mmol/L | LABORATORY | | | (LAB) | | | SERVICES, | | | | | | CORE | | + +---------+ + + + | POTASSIUM, | 3.8 | 3.4 - 5.0 | [facility] | | | PLASMA | | mmol/L | LABORATORY | | | (LAB) | | | SERVICES, | | | | | | CORE | | + +---------+ + + + | CHLORIDE, | 110 (H) | 97 - 108 mmol/L | [facility] | | | PLASMA | | | LABORATORY | | | (LAB) | | | SERVICES, | | | | | | CORE | | + +---------+ + + + | TOTAL CO2, | 25 | 21 - 32 mmol/L | [facility] | | | PLASMA | | | LABORATORY | | | (LAB) | | | SERVICES, | | | | | | CORE | | + +---------+ + + + | CALCIUM, | 9.2 | 8.6 - 10.2 | [facility] | | | PLASMA | | mg/dL | LABORATORY | | | (LAB) | | | SERVICES, | | | | | | CORE | | + +---------+ + + + | BILIRUBIN | 0.5 | 0.3 - 1.2 mg/dL | [facility] | | | TOTAL | | | LABORATORY | | | | | | SERVICES, | | | | | | CORE | | + +---------+ + + + | TOTAL | 8.2 | 6.4 - 8.2 g/dL | [facility] | | | PROTEIN, | | | LABORATORY | | | PLASMA | | | SERVICES, | | | (LAB) | | | CORE | | + +---------+ + + + | ALBUMIN, | 3.9 | 3.5 - 4.7 g/dL | [facility] | | | PLASMA | | | LABORATORY | | | (LAB) | | | SERVICES, | | | | | | CORE | | + +---------+ + + + | ALK PHOS | 97 | 53 - 128 U/L | [facility] | | | | | | LABORATORY | | | | | | SERVICES, | | | | | | CORE | | + +---------+ + + + | AST(SGOT) | 16 | 15 - 41 U/L | [facility] | | | | | | LABORATORY | | | | | | SERVICES, | | | | | | CORE | | + +---------+ + + + | ALT (SGPT) | 24 | 12 - 60 U/L | [facility] | | | | | | LABORATORY | | | | | | SERVICES, | | | | | | CORE | | + +---------+ + + + | ANION | 8 | 4 - 11 mmol/L | [facility] | | | GAP(ALB | | | LABORATORY | | | CORRECTED) | | | SERVICES, | | | | | | CORE | | + +---------+ + + + | POTASSIUM | No Hemo | | [facility] | | | CMNT | | | LABORATORY | | | | | | SERVICES, | | | | | | CORE | | + +---------+ + + + | BILI T CMNT | No Hemo | | [facility] | | | | | | LABORATORY | | | | | | SERVICES, | | | | | | CORE | | + +---------+ + + + | AST CMNT | No Hemo | | [facility] | | | | | | LABORATORY | | | | | | SERVICES, | | | | | | CORE | | + +---------+ + + + | ANION GAP | 8 | mmol/L | [facility] | | | | | | LABORATORY | | | | | | SERVICES, | | | | | | CORE | | + +---------+ + + + + + | Specimen | + + | Blood - Blood | + + + + + | Narrative | Performed At | + + + | GFR is estimated using the MDRD equation recommended by the | [facility] | | National Kidney Disease Education Program. Estimated GFR | LABORATORY | | Interpretive Information: <60 mL/min/1.73 sq m | SERVICES, CORE | | Chronic Kidney Disease <15 mL/min/1.73 sq m | | | Kidney Failure Estimated GFR greater that 60 mL/min/1.73 sq m is of | | | limited clinical value. The MDRD equation is not valid in the | | | following situations: - Patients under 18 years of age - Severe | | | malnutrition or obesity - Vegetarian diet - Rapidly changing kidney | | | function | | + + + + + + + + | Performing | Address | City/State/Zipcode | Phone Number | | Organization | | | | + + + + + | [facility] | [address] | [place] [address] | | | SERVICES, CORE | [address] | | | + + + + + documented in this encounter Visit Diagnoses + + | Diagnosis | + + | Preop examination - Primary Preoperative examination, unspecified | + + | GERD (gastroesophageal reflux disease) Esophageal reflux | + + | Depression Depressive disorder, not elsewhere classified | + + | Irregular heart beat Cardiac dysrhythmia, unspecified | + + | Lower back pain Lumbago | + + | Adrenal mass (HCC) Unspecified disorder of adrenal glands | + + documented in this encounter
--- OUTSIDE RECORDS SUMMARY | ~2019-07-17 | XMS | Encounter Summary ---
Demographics + + + | Address | [address] | | | [place] [address] | + + + | Home Phone | | + + + | Preferred Language | Unknown | + + + | Marital Status | Single | + + + | Holiness Affiliation | ZEFERINO | + + + | Race | or | + + + | Ethnic Group | Not or | + + + Author + + + | Author | [facility] [employer] [facility] | + + + | Organization | [facility] [employer] [facility] | + + + | Address | Unknown | + + + | Phone | Unavailable | + + + Support + + + + + | Name | Relationship | Address | Phone | + + + + + | Yennifer Batista | ECON | [address] | | | | | [place] | | | | | [address] | | + + + + + Care Team Providers + +------+ + | Care Functional Tester Typewriters Name | Role | Phone | + +------+ + | Ed Landis MD PCP | | + +------+ + Encounter Details +--------+ + + + + | Date | Type | Department | Care Team | Description | +--------+ + + + + | 08/31/ | Commercial Decorator | Urology at [facility] | [place], , | Adrenal mass (HCC) | | 2015 | | [address] | [place] [address] | (Primary Dx) | | | | Mailcode: [id number] | [facility] [address] | | | | | [facility] | [phone] | | | | | and Healing, | | | | | | [address] | | | | | | [place], [place] | | | | | | [address] | | | | | | [phone] | | | +--------+ + + + [...] | | 2019 | Encounter | | [address] | | | | | | [place], | | | | | | [place] [address] | | | | | | [phone] | | | | | | | | +--------+ + + + + | 11/10/ | Appointment | Procedural Care Unit | | | | 2019 | | | | | +--------+ + + + + | 11/10/ | Appointment | Gastroenterology | Efrain Mcmullen MD | | | 2019 | | | [address] | | | | | | [place], | | | | | | [place] [address] | | | | | | [phone] | | | | | | | | +--------+ + + + + documented as of this encounter Results COMPLETE METABOLIC SET (NA,K,CL,CO2,BUN,CREAT,GLUC,CA,AST,ALT,BILI TOTAL,ALK PHOS,ALB,PROT TOTAL) (09/01/2014 1:24 PM PST) + +---------+ + + + | Component | Value | Ref Range | Performed | Pathologist | | | | | At | Signature | + +---------+ + + + | GLUCOSE, | 82 | 60 - 99 mg/dL | [facility] | | | PLASMA | | | LABORATORY | | | (LAB) | | | SERVICES, | | | | | | CORE | | + +---------+ + + + | BUN, PLASMA | 6 | 6 - 20 mg/dL | [facility] | | | (LAB) | | | LABORATORY | | | | | | SERVICES, | | | | | | CORE | | + +---------+ + + + | CREATININE | 0.75 | 0.70 - 1.30 | [facility] | | | PLASMA | | mg/dL | LABORATORY | | | (LAB) | | | SERVICES, | | | | | | CORE | | + +---------+ + + + | EGFR | >60 | >60 mL/min | [facility] | | | - | | | LABORATORY | | | TAIWANESE | | | SERVICES, | | | | | | CORE | | + +---------+ + + + | EGFR NON | >60 | >60 mL/min | [facility] | | | -EFRA | | | LABORATORY | | | RICAN | | | SERVICES, | | | | | | CORE | | + +---------+ + + + | SODIUM, | 141 | 136 - 145 | [facility] | | | PLASMA | | mmol/L | LABORATORY | | | (LAB) | | | SERVICES, | | | | | | CORE | | + +---------+ + + + | POTASSIUM, | 4.0 | 3.4 - 5.0 | [facility] | | | PLASMA | | mmol/L | LABORATORY | | | (LAB) | | | SERVICES, | | | | | | CORE | | + +---------+ + + + | CHLORIDE, | 108 | 97 - 108 mmol/L | [facility] [...] +---------+ + + + | CALCIUM, | 8.6 | 8.6 - 10.2 | [facility] | | | PLASMA | | mg/dL | LABORATORY | | | (LAB) | | | SERVICES, | | | | | | CORE | | + +---------+ + + + | BILIRUBIN | 0.4 | 0.3 - 1.2 mg/dL | [facility] | | | TOTAL | | | LABORATORY | | | | | | SERVICES, | | | | | | CORE | | + +---------+ + + + | TOTAL | 7.6 | 6.4 - 8.2 g/dL | [facility] | | | PROTEIN, | | | LABORATORY | | | PLASMA | | | SERVICES, | | | (LAB) | | | CORE | | + +---------+ + + + | ALBUMIN, | 3.4 (L) | 3.5 - 4.7 g/dL | [facility] | | | PLASMA | | | LABORATORY | | | (LAB) | | | SERVICES, | | | | | | CORE | | + +---------+ + + + | ALK PHOS | 83 | 53 - 128 U/L | [facility] | | | | | | LABORATORY | | | | | | SERVICES, | | | | | | CORE | | + +---------+ + + + | AST(SGOT) | 12 (L) | 15 - 41 U/L | [facility] | | | | | | LABORATORY | | | | | | SERVICES, | | | | | | CORE | | + +---------+ + + + | ALT (SGPT) | 21 | 12 - 60 U/L | [facility] | | | | | | LABORATORY | | | | | | SERVICES, | | | | | | CORE | | + +---------+ + + + | ANION | 9 | 4 - 11 mmol/L | [facility] [...] Performed At | + + + | Study patient Please page [phone] when the patient arrive at the | [facility] | | lab. GFR is estimated using the MDRD equation recommended by the | LABORATORY | | National Kidney Disease Education Program. Estimated GFR | SERVICES, CORE | | Interpretive Information: <60 mL/min/1.73 sq m | | | Chronic Kidney Disease <15 mL/min/1.73 [...] | + + + + + | [facility] | [address] | [place] [address] | | | SERVICES, CORE | [address] | | | + + + + + documented in this encounter Visit Diagnoses + + | Diagnosis | + + | 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"
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
--- OUTSIDE RECORDS SUMMARY | ~2019-07-17 | XMS | Encounter Summary ---
Demographics + + + | Address | [address] | | | [place] [address] | + + + | Home Phone | | + + + | Preferred Language | Unknown | + + + | Marital Status | Single | + + + | Hoahaoism Affiliation | ZEFERINO | + + + | Race | or | + + + | Ethnic Group | Not or | + + + Author + + + | Author | [facility] | + + + | Organization | [facility] [employer] [facility] | + + + | Address | Unknown | + + + | Phone | Unavailable | + + + Support + + + + + | Name | Relationship | Address | Phone | + + + + + | Yennifer Batista | ECON | [address] | | | | | [place] | | | | | [address] | | + + + + + Care Team Providers + +------+ + | Care Pack Mule Worker Name | Role | Phone | + [...] | Order | [address] | [place], [place] | | | | | [address] | [address] | | | | | Mailcode: [id number] | [phone] | | | | | [place] | | | | | | [address] [facility] [place] | | | | | | [address] | | | | | | [phone] | | | +--------+ + + + [...] | | | | | | [place] [address] | | | | | | [phone] | | | | | | | [...] | | | | | | [place] [address] | | | | | | [phone] | | | | | | | | +--------+ + + + + documented as of this encounter Results COLONOSCOPY (06/30/2018 3:47 PM PST) + + | Specimen | + + | | + + + + --+ | Narrative | Performed A t | + + --+ | MRN: | [facility] | | [id number] Date: 06/30/2018Patient Name: Franck Mares #: | ENDOSCOPY | | [id number] of : 1960CSN: [id number] Type: | | | AmbulatoryRoom: GI 3Procedure: ColonoscopyIndications: | | | Screening for colorectal malignant neoplasmProviders: | | | RACHELLE JONES MD (Fellow), JOMAR CONRAD MD | | | (Doctor), CHIVO DONG RN (Nurse), | | | CHERRY MEJIA RN (Nurse), GENECREST | | | GEMINI (Shopper Insights Manager)Referring MD: DAR DALTON, MDRequesting | | | Provider: Medicines: Monitored [...] physician, the nurse, the | | | oriental rug stretcher and the painting technician. The procedure | | | was [...] portions.JOMAR | | | MD ANAMARIA06/30/2018 4:44:26 [facility] report has been signed | | | electronically.RACHELLE JONES MDNumber of Addenda: 0Note Initiated | | | On: 06/30/2018 3:47 [facility] Letter to: ED M. QUAEMPTS | | [...] --+ | MRN: | [facility] | | [id number] Date: 06/30/2018Patient Name: Franck Mares #: | ENDOSCOPY | | [id number] of : 1960CSN: [id number] Type: | | | AmbulatoryRoom: GI 3Procedure: [...] physician, | | | the nurse, the oriental rug stretcher and the | | | painting technician. The procedure was verified | | [...] | | | The Olympus GIF-[id number] Endoscope #[id number] was introduced | | | through the [...] Initiated | | | On: 06/30/2018 3:45 [facility] Letter to: ED LANDIS | | | [...] + + | Performing | Address | City[facility] | Phone Number | | Organization | [...]
--- OUTSIDE RECORDS SUMMARY | ~2019-07-17 | XMS | Encounter Summary ---
Demographics + + + | Address | [address] | | | [place] [address] | + + + | Home Phone | | + + + | Preferred Language | Unknown | + + + | Marital Status | Single | + + + | Sikh Affiliation | ZEFERINO | + + + | Race | or | + + + | Ethnic Group | Not or | + + + Author + + + | Author | [facility] | + + + | Organization | [facility] [employer] [facility] | + + + | Address | Unknown | + + + | Phone | Unavailable | + + + Support + + + + + | Name | Relationship | Address | Phone | + + + + + | Yennifer Batista | ECON | [address] | | | | | [place] | | | | | [address] | | + + + + + Care Team Providers + +------+ + | Care Head Of Drama Name | Role | Phone | + +------+ + | Ed Landis MD PCP | | + +------+ + Encounter Details +--------+ + + + + | Date | Type | Department | Care Team | Description | +--------+ + + + + | 01/28/ | Abstract | [facility] | [address] | | | 2018 | | [address] | [facility] | | | | | [address] | [address] [facility] [place] | | | | | Mailcode: [id number] | [address] | | | | | Physician's [place] | | | | | | [address] [place], | | | | | | [place] [address] | | | | | | [phone] | | | +--------+ + + + [...] | | | | | | [place] [address] | | | | | | [phone] | | | | | | | [...] | | | | | | [place] [address] | | | | | | [phone] | | | | | | | | +--------+ + + + + documented as of this encounter Visit Diagnoses Not on filedocumented in this encounter"
--- OUTSIDE RECORDS SUMMARY | ~2019-07-17 | XMS | Encounter Summary ---
Demographics + + + | Address | [address] | | | [place] [address] | + + + | Home Phone | | + + + | Preferred Language | Unknown | + + + | Marital Status | Single | + + + | Tenriism Affiliation | ZEFERINO | + + + | Race | or | + + + | Ethnic Group | Not or | + + + Author + + + | Author | [facility] | + + + | Organization | [facility] [employer] [facility] | + + + | Address | Unknown | + + + | Phone | Unavailable | + + + Support + + + + + | Name | Relationship | Address | Phone | + + + + + | Yennifer Batista | ECON | [address] | | | | | [place] | | | | | [address] | | + + + + + Care Team Providers + +------+ + | Care Complaint Investigations Officer Name | Role | Phone | + +------+ + | Ed Landis MD | PCP | | + +------+ + Reason for Visit AUTH/CERT +--------+--------+ + + + + | Status | Reason | Specialty | Diagnoses / | Referred By | Referred To | | | | | Procedures | Contact | Contact | +--------+--------+ + + + + | | | | | | | +--------+--------+ + + + + Encounter Details +--------+ + + + + | Date | Type | Department | Care Team | Description | +--------+ + + + + | 06/30/ | Hospital | [facility] [address] | Jomar Conrad MD | | | 2018 | Encounter | [address] | [address] [facility] | | | | | [place] | [facility] | | | | | [place] | [place] [address] | | | | | ([facility]) | [phone] | | | | | [place], [place] | | | | | | [address] | | | | | | [phone] | | | +--------+ + + + [...] + + documented in this encounter Discharge Instructions Instructions Sahara Ford RN - 06/30/2018Home Care Instructions after EGD (Upper Endosc opy) You may resume your normal diet and medications unless told otherwise. Medications The medications you received for your procedure can cause you to be forgetful and drowsy an d will take the remainder of the day to wear off. DO NOT drink alcohol, drive, operate heavy machinery, sign legal documents, or make major d ecisions until tomorrow. Common After Effects Mild abdominal pain, bloating, and gas. Sore throat. You may treat it with throat lozenges and/or gargle with warm salt water. You may bruise at your IV site. If you have pain, redness, or swelling at your IV site a pply a warm compress. Complications Call your GI doctor if you have: Abnormal pain or any new unexplained symptoms. Shortness of breath, chest or neck pain. Vomiting blood or rectal bleeding. Fever above 101.5 Redness, pain, or swelling at your IV site that is not relieved with warm compress. For any questions related to your procedure, call Thursday- Thursday 8:00- 4:30 Call the endoscopy department toll free ext. [phone] or . After business hours or on weekends and holiday Hospital School Bus Aide toll free [phone] ext. [phone] and have the GI doctor concrete mixing plant laborer paged. The provider who performed your procedure: Dr. Conrad Results of your EGD: Esophageal stricture dilated to 15mm. Resume previous diet. Results of your Colonoscopy: Unable to complete colonoscopy, formed stool present. Follow up Appointments with: referring provider. Your primary care provider or referring provider will receive copies of the procedure repor t and all the pathology reports with recommendations for treatment if needed. If noted above that biopsies were taken or polyps removed we will receive the results in ap proximately 1 week. If you have not heard from us after 2 weeks please call for your results . General Discharge Instructions for Same-Day Procedure Patients: ? Remember that you are under the influence of medications. Do not stay alone. A responsible person should be with you. Do not drive, drink alcohol or make important personal or business decisions for 24 hour s. ? Resume normal activity and return to work when advised by your Doctor. documented in this encounter Medications at Time of Discharge + + + +---------+ + + | Medication | Sig | Dispensed | Refills | Start | End Date | | | | | | Date | | + + + +---------+ + + | buPROPion SR 150 | Take 150 mg by mouth | | 0 | | | | mg oral tablet | two times daily. | | | | | | extended release | | | | | | + + + +---------+ + + | loratadine 10 mg | Take 10 mg by mouth | | 0 | | | | oral tablet | once daily. | | | | | + + + +---------+ + + | omeprazole | Take 1 tablet by | 28 | 5 | 02/18/20 | | | magnesium (PRILOSEC | mouth once daily. | tablet | | 18 | | | OTC) 20 mg oral | Indications: Erosive | | | | | | tablet,delayed | Esophagitis | | | | | | release | | | | | | | (/EC)Indications: | | | | | | | erosive esophagitis | | | | | | + + + +---------+ + + | special mouthwash | Take 5 mL by mouth | 300 mL | 0 | 06/30/20 | | | (Maalox/lidocaine/di | four times daily as | | | 18 | | | phenhydrAMINE) oral | needed. | | | | | | suspension | | | | | | | (compound)Indication | | | | | | | s: Esophageal | | | | | | | stenosis | | | | | | + + + +---------+ + + | special mouthwash | Take 5 milliliters | 300 mL | 0 | 06/30/20 | | | (Maalox/lidocaine/di | by mouth four times | | | 18 | | | phenhydrAMINE) oral | daily as needed. | | | | | | suspension | | | | | | | (compound) | | | | | | + + + +---------+ + + documented as of this encounter [...] Mcmullen MD | | | 2020 | Encounter | | [address] | | | | | | [place], | | | | | | [place] [address] | | | | | | [phone] | | | | | | | [...] | | | | | [place], | | | | | | [place] [address] | | | | | | [phone] | | | | | | | | +--------+ + + + + documented as of this encounter Procedures + +--------+ + + + | Procedure Name | Priori | Date/Time | Associated Diagnosis | Comments | | | ty | | | | + +--------+ + + + | COLONOSCOPY | Routin | 06/30/2018 | Benign esophageal | Results for this | | | e | 3:47 PM | stricture | procedure are in the | | | | PST | Gastro-esophageal | results section. | | | | | reflux disease with | | | | | | esophagitis | | | | | | Adenomatous polyp of | | | | | | ascending colon | | + +--------+ + + + | EGD | Routin | 06/30/2018 | Benign esophageal | Results for this | | | e | 3:45 PM | stricture | procedure are in the | | | | PST | Gastro-esophageal | results section. | | | | | reflux disease with | | | | | | esophagitis | | | | | | Adenomatous polyp of | | | | | | ascending colon | | + +--------+ + + + documented in this encounter Results COLONOSCOPY (06/30/2018 3:47 PM PST) + + | Specimen | + + | | + + + + --+ | Narrative | Performed A t | + + --+ | MRN: | [facility] | | [id number] Date: 06/30/2018Patient Name: Franck Mares #: | ENDOSCOPY | | [id number] of : 1960CSN: [id number] Type: | | | AmbulatoryRoom: GI 3Procedure: ColonoscopyIndications: | | | Screening for colorectal malignant neoplasmProviders: | | | RACHELLE JONES MD (Fellow), JOMAR CONRAD MD | | | (Doctor), CHIVO DONG RN (Nurse), | | | CHERRY MEJIA RN (Nurse), GENECREST | | | GEMINI (Brick Setter Operator)Referring MD: REMIGIO DRAKE, MDRequesting | | | Provider: Medicines: [...] physician, the nurse, the | | | city clerk and the extrusion technician. The procedure | | | was [...] portions.JOMAR | | | MD ANAMARIA06/30/2018 4:44:26 [facility] | | | electronically.RACHELLE JONES MDNumber of Addenda: 0Note Initiated | | | On: 06/30/2018 3:47 [facility] Letter to: ED LANDIS | | [...] --+ | MRN: | [facility] | | [id number] Date: 06/30/2018Patient Name: Franck Mares #: | ENDOSCOPY | | [id number] of : 1960CSN: [id number] Type: | | | AmbulatoryRoom: GI 3Procedure: [...] physician, | | | the nurse, the city clerk and the | | | extrusion technician. The procedure was verified | | [...] | | | The Olympus GIF-[id number] Endoscope #[id number] was introduced | | | through the [...] Initiated | | | On: 06/30/2018 3:45 [facility] Letter to: ED LANDIS | | | above testing. | | |Attending Participation: | | | I was present and participated during the entire procedure, including | | | non-goldman portions. | | |JOMAR CONRAD MD | | |06/30/2018 4:43:02 PM | | |This report has been signed electronically. | | |RAHCELLE JONES MD | | |Number of Addenda: [...] + | Diagnosis | + + | History of colon polyps - Primary Personal history of colonic polyps | + + | Gastroesophageal reflux disease with esophagitis | + + | S/P dilatation of esophageal stricture Other postprocedural status | + + | Benign esophageal stricture Stricture and stenosis of esophagus | + + | Gastro-esophageal reflux disease with esophagitis Reflux esophagitis | + + | Adenomatous polyp of ascending colon | + + documented in this encounter Administered Medications + +--------+---------+------+------+------+ | Medication Order | MAR | Action | Dose | Rate | Site | | | Action | Date | | | | + +--------+---------+------+------+------+ + +---+ | lidocaine viscous (XYLOCAINE | | | VISCOUS) 2 % mucosal solution 15 | | | mL 15 mL, oral, INTRAPROCEDURE | | | PRN, Starting Thu06/30/18 at | | | 1359, Until Thu06/30/18 at 2356, | | | sore oropharynx | | + +---+ | | | + +---+ | lidocaine viscous (XYLOCAINE | | | VISCOUS) 2 % mucosal solution 15 | | | mL 15 mL, oral, INTRAPROCEDURE | | | PRN, Starting 06/30/18 at | | | 1359, Until 06/30/18 at 2356, | | | sore oropharynx | | + +---+ | | | + +---+ | simethicone (MYLICON) | | | suspension 3.333 mg 3.333 mg | | | (rounded from 3.3333 mg = 1 | | | drop), oral, INTRAPROCEDURE PRN, | | | Starting 06/30/18 at 1359, | | | Until 06/30/18 at 2356, gas | | | bubbles in endoscope | | + +---+ | | | + +---+ | simethicone (MYLICON) | | | suspension 3.333 mg 3.333 mg | | | (rounded from 3.3333 mg = 1 | | | drop), oral, INTRAPROCEDURE PRN, | | | Starting Wed 18 at 1359, | | | Until Wed 18 at 2356, gas | | | bubbles in endoscope | | + +---+ | | | + +---+ | sodium chloride 0.9 % (NS) IV | | | infusion 50 mL/hr, intravenous, | | | CONTINUOUS, Starting Thu06/30/18 | | | at 1400, Until Thu06/30/18 at | | | 2356 | | + +---+ | | | + +---+ + +---------+ + + +---+ | sodium chloride 0.9 % (NS) IV | New Bag | 06/30/20 | 50 mL/hr | 50 mL/hr | | | infusion 50 mL/hr, intravenous, | | 18 2:26 | | | | | CONTINUOUS, Starting Thu06/30/18 | | PM PST | | | | | at 1400, Until Thu06/30/18 at | | | | | | | 2356 | | | | | | + +---------+ + + +---+ +---+---+ | | | +---+---+ documented in this encounter
--- OUTSIDE RECORDS SUMMARY | ~2019-07-17 | XMS | Encounter Summary ---
Demographics + + + | Address | [address] | | | [place] [address] | + + + | Home Phone [...] + | Author | [facility] | + + + | Organization | [facility] [facility] | + + + | Address | Unknown | + + + | Phone | Unavailable | + + + Support + + + + + | Name | Relationship | Address | Phone | + + + + + | Yennifer Batista | ECON | [address] | | | | | [place] | | | | | [address] | | + + + + + Care Team Providers + +------+ + | Care Lump Receiver Name | Role | Phone | + [...] + + + + | 06/30/ | Anesthesia | Endoscopic | Nighat Ac | | | 2018 | Event | Procedural Unit at | MD Zuly [address] | | | | | [address] | | | | | [address] | [place], [place] | | | | | Mailcode: [id number] | [address] | | | | | [place] | [phone] | | | | | [address] [place], [place] | | | | | | [address] | Julian Obregon, | | | | | [phone] | DO [address] | | | | | | [address] | | | | | | [place], [place] | | | | | | [address] | | | | | | [phone] | | | | | | | | +--------+ + + + + Anesthesia Record + + + + + | Procedure Name | Responsible | Anesthesia Start | Anesthesia Stop Time | | | Anesthesiologist | Time | | + + + + + | COLONOSCOPY | Nighat Ac, | 06/30/18 1602 | 06/30/18 1642 | | | MD | | | + + + + + +----+---+ + + | Da | T | Event | Comment | | te | i | | | | | m | | | | | e | | | +----+---+ + + | 12 | 1 | Eq Check | Anesthesia machine checked Equipment verified | | /1 | 5 | | | | 2/ | 4 | | | | 20 | 3 | | | | 18 | | | | +----+---+ + + | | 1 | Pt. Check | Prior to anesthesia start, pt. Identified, examined, chart | | | 6 | | reviewed, PARQ held, anesthetic plan made or approved by | | | 0 | | attending anesthesiologist. NPO status confirmed as appropriate | | | 0 | | for procedure Preoperative evaluation: unchanged | +----+---+ + + | | 1 | An Start | | | | 6 | | | | | 0 | | | | | 2 | | | +----+---+ + + | | 1 | Vitals | Monitors applied Vital signs checked Patient ready for anesthesia | | | 6 | Checked | | | | 0 | | | | | 7 | | | +----+---+ + + | | 1 | Ready | | | | 6 | | | | | 0 | | | | | 7 | | | +----+---+ + + | | 1 | O2 by NC | | | | 6 | | | | | 0 | | | | | 7 | | | +----+---+ + + | | 1 | Abx held | Contraindicated, or not indicated for this procedure, or already | | | 6 | Medical or | receiving antibiotics | | | 0 | Surgical | | | | 8 | Reason | | +----+---+ + + | | 1 | Incision | | | | 6 | | | | | 1 | | | | | 3 | | | +----+---+ + + | | 1 | Surgery end | | | | 6 | | | | | 2 | | | | | 8 | | | +----+---+ + + | | 1 | Quick Note | Solid stool in the rectal vault, colonoscopy aborted. | | | 6 | | | | | 2 | | | | | 8 | | | +----+---+ + + | | 1 | an stop | | | | 6 | data | | | | 3 | | | | | 4 | | | +----+---+ + + | | 1 | PACU Rpt | | | | 6 | Given | | | | 4 | | | | | 2 | | | +----+---+ + + | | 1 | Anesthesia | | | | 6 | End | | | | 4 | | | | | 2 | | | +----+---+ + + +------+ | Meds | +------+ + + + | Name | Total | + + + | propofol | 80 mg | + + + | propofol (DIPRIVAN) 200 mg | 156,412.5 mcg | + + + | NS | 500 mL | + + + + + | Name | + + | EtN2O % | + + | Insp N2O % | + + | O2 Flow Rate (Total Liters) | + + + + | No blood administrations on file. | + + +--------+ + + + | Type | Details | Placement | Removal | +--------+ + + + | Periph | 02/17/18; 1424; Right; | 02/17/18 1424 by | | | eral | Antecubital; 22 g; None; No; | Susan Le RN | | | IV | Positive | | | +--------+ + + + | Periph | 06/30/18; 1425; Penelope GARAY; Right; | 06/30/18 1425 by | 06/30/18 1740 by | | eral | Forearm; 20 g; None; No; | Penelope Leigh RN | Sahara Ford RN | | IV | Positive; 06/30/18; 1740; | | | | | Discharge | | | +--------+ + + + [...] | | | | | | [place] [address] | | | | | | [phone] | | | | | | | [...] | | | | | | [place] [address] | | | | | | [phone] | | | | | | | | +--------+ + + + + documented as of this encounter Visit Diagnoses Not on filedocumented in this encounter Administered Medications + + + + +------+------+ | Medication Order | MAR | Action | Dose | Rate | Site | | | Action | Date | | | | + + + + +------+------+ | propofol (DIPRIVAN) 200 mg | Rate/Dos | 06/30/20 | 175 | | | | INTRAPROCEDURE CONTINUOUS PRN, | e Change | 18 4:21 | mcg/kg/m | | | | Starting Thu06/30/18 at 1606, | | PM PST | in | | | | Until Thu06/30/18 at 1634 | | | | | | + + + + +------+------+ + + + +---+---+ | Rate/Dose Change | 06/30/20 | 150 | | | | | 18 4:16 | mcg/kg/m | | | | | PM PST | in | | | + + + +---+---+ | New Bag | 06/30/20 | 125 | | | | | 18 4:06 | mcg/kg/m | | | | | PM PST | in | | | + + + +---+---+ +---+---+ | | | +---+---+ + +-------+ +-------+---+---+ | propofol (DIPRIVAN) injection | Given | 06/30/20 | 40 mg | | | | INTRAPROCEDURE PRN, Starting Wed | | 18 4:12 | | | | | 06/30/18 at 1610, Until Wed | | PM PST | | | | | 06/30/18 at 1634 | | | | | | + +-------+ +-------+---+---+ +-------+ +-------+---+---+ | Given | 06/30/20 | 20 mg | | | | | 18 4:10 | | | | | | PM PST | | | | +-------+ +-------+---+---+ | Given | 06/30/20 | 20 mg | | | | | 18 4:08 | | | | | | PM PST | | | | +-------+ +-------+---+---+ +---+---+ | | | +---+---+ + + + +---+---+---+ | sodium chloride 0.9 % (NS) IV | given by | 06/30/20 | | | | | infusion INTRAPROCEDURE | | 18 4:28 | | | | | CONTINUOUS PRN, Starting Wed | anesthes | PM PST | | | | | 06/30/18 at 1602, Until Wed | iology | | | | | | 06/30/18 at 1634 | | | | | | + + + +---+---+---+ + + +---+---+---+ | given by anesthesiology | 06/30/20 | | | | | | 18 4:11 | | | | | | PM PST | | | | + + +---+---+---+ | New Bag | 06/30/20 | | | | | | 18 4:02 | | | | | | PM PST | | | | + + +---+---+---+ +---+---+ | | | +---+---+ documented in this encounter"
--- OUTSIDE RECORDS SUMMARY | ~2019-07-17 | XMS | Encounter Summary ---
Demographics + + + | Address | [address] | | | [place] [address] | + + + | Home Phone | | + + + | Preferred Language | Unknown | + + + | Marital Status | Single | + + + | Jain Affiliation | ZEFERINO | + + + | Race | or | + + + | Ethnic Group | Not or | + + + Author + + + | Author | [facility] | + + + | Organization | [facility] | + + + | Address | Unknown | + + + | Phone | Unavailable | + + + Support + + + + + | Name | Relationship | Address | Phone | + + + + + | Yennifer Batista | ECON | [address] | | | | | [place] | | | | | [address] | | + + + + + Care Team Providers + +------+ + | Care Finished Goods Stock Clerk Name | Role | Phone | + +------+ + | Ed Landis MD | PCP | | + +------+ + Encounter Details +--------+ + + + + | Date | Type | Department | Care Team | Description | +--------+ + + + + | 07/01/ | Inside | [facility] | Damaris Woods MD | | | 2018 | Referral | [facility] [address] | [address] | | | | Order | [place] Mailcode: | [place], | | | | | [facility] | [place] [address] | | | | | [facility], | [phone] | | | | | [address] | | | | | | [place], [place] | | | | | | [address] | | | | | | [phone] | | | +--------+ + + + [...] | | | | | | [place] [address] | | | | | | [phone] | | | | | | | [...] | | | | | | [place] [address] | | | | | | [phone] | | | | | | | | +--------+ + + + + + + +--------+ + + | Name | Type | Priori | Associated Diagnoses | Order Schedule | | | | ty | | | + + +--------+ + + | COLONOSCOPY | Procedures | Routin | Esophageal | Expected: 07/01/2018 | | | | e | stenosis | | + + +--------+ + + | EGD | Procedures | Routin | Esophageal | Expected: 07/01/2018 | | | | e | stenosis | | + + +--------+ + + documented as of this encounter Visit Diagnoses + + | Diagnosis | + + | Esophageal stenosis - Primary Stricture and stenosis of esophagus | + + documented in this encounter"
--- OUTSIDE RECORDS SUMMARY | ~2019-07-17 | XMS | Encounter Summary ---
Demographics + + + | Address | [address] | | | [place] [address] | + + + | Home Phone | | + + + | Preferred Language | Unknown | + + + | Marital Status | Single | + + + | Taoism Affiliation | ZEFERINO | + + + | Race | or | + + + | Ethnic Group | Not or | + + + Author + + + | Author | [facility] [employer] [facility] | + + + | Organization | [facility] Event [employer] [facility] | + + + | Address | Unknown | + + + | Phone | Unavailable | + + + Support + + + + + | Name | Relationship | Address | Phone | + + + + + | Yennifer Batista | ECON | [address] | | | | | [place] | | | | | [address] | | + + + + + Care Team Providers + +------+ + | Care Aircraft Ordnance Technician Name | Role | Phone | + +------+ + | Ed Landis MD PCP | | + +------+ + Reason for Visit + + + | Reason | Comments | + + + | Social Work Notes | | + + + Encounter Details +--------+ + + + + | Date | Type | Department | Care Team | Description | +--------+ + + + + | 08/07/ | Telephone | SOCIAL WORK | Sonia Hartley | Social Work Notes | | 2017 | | AMBULATORY [address] | [address] | | | | | [address] | [place], | | | | | Mailcode: CH6A | [place] [address] | | | | | [place], [place] | | | | | | [address] | | | | | | [phone] | | | +--------+ + + + [...] | | | | | | [place] [address] | | | | | | [phone] | | | | | | | | +--------+ + + + + | 11/10/ | Appointment | Procedural Care Unit | | | | 2019 | | | | | +--------+ + + + + | 11/10/ | Appointment | Gastroenterology | Efrain Mcmullen MD | | | 2019 | | | [address] | | | | | | [place] | | | | | | [place] [address] | | | | | | [phone] | | | | | | | | +--------+ + + + + documented as of this encounter Visit Diagnoses Not on filedocumented in this encounter"
--- OUTSIDE RECORDS SUMMARY | ~2019-07-17 | XMS | Encounter Summary ---
Demographics + + + | Address | [address] | | | [place] [address] | + + + | Home Phone [...] Author + + + | Author | [facility] | + + + | Organization | [facility] [employer] [facility] | + + + | Address | Unknown | + + + | Phone | Unavailable | + + + Support + + + + + | Name | Relationship | Address | Phone | + + + + + | Yennifer Batista | ECON | [address] | | | | | [place] | | | | | [address] | | + + + + + Care Team Providers + +------+ + | Care Carpenter Labor Supervisor Name | Role | Phone | + +------+ + | Leidy Grullon MD | PCP | | + +------+ + Reason for Visit + + + | Reason | Comments | + + + | Referral Needed | Cardiology preop | + + + Encounter Details +--------+ + + + + | Date | Type | Department | Care Team | Description | +--------+ + + + + | 03/23/ | Telephone | Urology at [facility] | Larissa Doe, | Referral Needed | | 2013 | | [address] | Jesus Leiva MD 5 | (Cardiology preop) | | | | Mailcode: CH10U | [facility] | | | | | [facility] | [address] | | | | | and Healing, | [place] [address] | | | | | [facility] | [phone] | | | | | Floor [place], [place] | | | | | | [address] | | | | | | [phone] | | | +--------+ + + + [...] | | | | | | [place] [address] | | | | | | [phone] | | | | | | | [...] | | | | | | [place] [address] | | | | | | [phone] | | | | | | | | +--------+ + + + + documented as of this encounter Visit Diagnoses Not on filedocumented in this encounter"
--- OUTSIDE RECORDS SUMMARY | ~2019-07-17 | XMS | Encounter Summary ---
Demographics + + + | Address | [address] | | | [place] [address] | + + + | Home Phone | | + + + | Preferred Language | Unknown | + + + | Marital Status | Single | + + + | Denominational Affiliation | ZEFERINO | + + + | Race | or | + + + | Ethnic Group | Not or | + + + Author + + + | Author | [facility] [employer] [facility] | + + + | Organization | [facility] [employer] [facility] | + + + | Address | Unknown | + + + | Phone | Unavailable | + + + Support + + + + + | Name | Relationship | Address | Phone | + + + + + | Yennifer Batista | ECON | [address] | | | | | [place] | | | | | [address] | | + + + + + Care Team Providers + +------+ + | Care Molybdenum Steamer Operator Name | Role | Phone | + +------+ + | Ed Landis MD PCP | | + +------+ + Encounter Details +--------+------+ + + + | Date | Type | Department | Care Team | Description | +--------+------+ + + + | 09/01/ | Lab | Laboratory at [facility] | | Adrenal mass (HCC) | | 2014 | | [address] | | | | | | [place], [place] | | | | | | [address] | | | | | | [phone] | | | +--------+------+ + + + Social History + + [...] | | | | | [place], | | | | | | [place] [address] | | | | | | [phone] | | | | | | | [...] | | | | | | [place] [address] | | | | | | [phone] | | | | | | | | +--------+ + + + + documented as of this encounter Procedures + +--------+ + + + | Procedure Name | Priori | Date/Time | Associated Diagnosis | Comments | | | ty | | | | + +--------+ + + + | CBC AND AUTO DIFF | Routin | 09/01/2014 | Adrenal mass (HCC) | Results for this | | | e | 1:24 PM | | procedure are in the | | | | PST | | results section. | + +--------+ + + + | CBC, WITH | Routin | 09/01/2014 | Adrenal mass (HCC) | Results for this | | DIFFERENTIAL | e | 1:24 PM | | procedure are in the | | | | PST | | results section. | + +--------+ + + + | COMPLETE METABOLIC | Routin | 09/01/2014 | Adrenal mass (HCC) | Results for this | | SET | e | 1:24 PM | | procedure are in the | | (NA,K,CL,CO2,BUN,CRE | | PST | | results section. | | AT,GLUC,CA,AST,ALT,B | | | | | | LEANNA TOTAL,ALK | | | | | | PHOS,ALB,PROT TOTAL) | | | | | + +--------+ + + + documented in this encounter Results CBC AND AUTO DIFF (09/01/2014 1:24 PM PST) + + + + + + | Component | Value | Ref Range | Performed | Pathologist | | | | | At | Signature | + + + + + + | WHITE CELL | 7.36 | 4.40 - 11.00 | [facility] | | | COUNT | | K/cu mm | LABORATORY | | | | | | SERVICES, | | | | | | [facility] | | [facility] | | | [facility] | | + + + + + + | RED CELL | 4.61 | 4.50 - 6.00 | [facility] | | | COUNT | | M/cu mm | LABORATORY | | | | | | SERVICES, | | | | | | [facility] + | | | | | | [facility] | | + + + + + + | HEMOGLOBIN | 10.6 (L) | 13.5 - 17.5 | [facility] | | | | | g/dL | LABORATORY | | | | | | SERVICES, | | | | | | [facility] + | | | | | | [facility] | | + + + + + + | HEMATOCRIT | 34.0 (L) | 41.0 - 53.0 % | [facility] | | | | | | LABORATORY | | | | | | SERVICES, | | | | | | [facility] + | | | | | | [facility] | | + + + + + + | MCV | 73.8 (L) | 80.0 - 96.0 fL | [facility] | | | | | | LABORATORY | | | | | | SERVICES, | | | | | | [facility] + | | | | | | [facility] | | + + + + + + | MCHC | 31.2 | 33.0 - 35.5 | [facility] | | | | | g/dL | LABORATORY | | | | | | SERVICES, | | | | | | [facility] + | | | | | | [facility] | | + + + + + + | RDW SD | 47.3 (H) | 35.1 - 46.3 fL | [facility] | | | | | | LABORATORY | | | | | | SERVICES, | | | | | | [facility] + | | | | | | [facility] | | + + + + + + | PLATELET | 743 (H) | 150 - 400 K/cu | [facility] | | | COUNT | | mm | LABORATORY | | | | | | SERVICES, | | | | | | [facility] + | | | | | | [facility] | | + + + + + + | MPV | 8.1 (L) | 9.7 - 12.3 fL | [facility] | | | | | | LABORATORY | | | | | | SERVICES, | | | | | | [facility] + | | | | | | [facility]AL[facility] | | + + + + + + | NEUTROPHIL | 72.3 (H) | 50.0 - 70.0 % | [facility] | | | % | | | LABORATORY | | | | | | SERVICES, | | | | | | [facility] + | | | | | | [facility]ALING | | + + + + + + | LYMPHOCYTE | 20.4 | 18.0 - 42.0 % | [facility] | | | % | | | LABORATORY | | | | | | SERVICES, | | | | | | [facility] + | | | | | | [facility]ALING | | + + + + + + | MONOCYTE % | 5.8 | 3.5 - 9.0 % | [facility] | | | | | | LABORATORY | | | | | | SERVICES, | | | | | | [facility] + | | | | | | [facility]ALING | | + + + + + + | EOS % | 0.7 (L) | 1.0 - 3.0 % | [facility] | | | | | | LABORATORY | | | | | | SERVICES, | | | | | | [facility] + | | | | | | [facility]ALING | | + + + + + + | BASO % | 0.8 | 0.0 - 2.0 % | [facility] | | | | | | LABORATORY | | | | | | SERVICES, | | | | | | [facility] + | | | | | | [facility]ALING | | + + + + + + | NEUTROPHIL | 5.32 | 1.80 - 7.70 | [facility] | | | # | | K/cu mm | LABORATORY | | | | | | SERVICES, | | | | | | [facility] + | | | | | | [facility]ALING | | + + + + + + | LYMPHOCYTE | 1.50 | 1.00 - 4.80 | [facility] | | | # | | K/cu mm | LABORATORY | | | | | | SERVICES, | | | | | | [facility] | [facility] + | | | | | | [facility]ALING | | + + + + + + | MONOCYTE # | 0.43 | 0.10 - 0.90 | [facility] | | | | | K/cu mm | LABORATORY | | | | | | SERVICES, | | | | | | [facility] + | | | | | | [facility]ALING | | + + + + + + | EOS # | 0.05 | 0.00 - 0.50 | [facility] | | | | | K/cu mm | LABORATORY | | | | | | SERVICES, | | | | | | [facility] + | | | | | | [facility]ALING | | + + + + + + | BASO # | 0.06 | 0.00 - 0.10 | [facility] | | | | | K/cu mm | LABORATORY | | | | | | SERVICES, | | | | | | [facility] | [facility] + | | | | | | [facility]ALING | | + + + + + + + + | Specimen | + + | Blood - Blood | + + + + + + + | Performing | Address | City/State/Zipcode | Phone Number | | Organization | | | | + + + + + | [facility] | [address] | [place] [address] | | | [facility] | | | | | HEALTH + HEALING | | | | + + + [...] | | | LABORATORY | | | [facility] | | | SERVICES, | | | [...] + + | Study patient Please page [phone] when the patient arrive at the | [facility] | | lab. GFR is estimated using [...] + + + + + | [facility] | [address] | [place] [address] | | | SERVICES, CAM | ELLEN MARINELLI | | | + + + + + documented in this encounter Visit Diagnoses + + | Diagnosis | + + | Adrenal mass (HCC) Unspecified disorder of adrenal glands | + + documented in this encounter"
--- OUTSIDE RECORDS SUMMARY | ~2019-07-17 | XMS | Encounter Summary ---
Demographics + + + | Address | [address] | | | [place] [address] | + + + | Home Phone | | + + + | Preferred Language | Unknown | + + + | Marital Status | Single | + + + | Temple Affiliation | ZEFERINO | + + + | Race | or | + + + | Ethnic Group | Not or | + + + Author + + + | Author | [facility] [employer] [facility] | + + + | Organization | [facility] [employer] [facility] | + + + | Address | Unknown | + + + | Phone | Unavailable | + + + Support + + + + + | Name | Relationship | Address | Phone | + + + + + | Yennifer Batista | ECON | [address] | | | | | [place] | | | | | [address] | | + + + + + Care Team Providers + +------+ + | Care Digital Imager Name | Role | Phone | + +------+ + | Sujatha Sullivan PCP | | | PIGMENT MIXER | | | + +------+ + Reason for Visit +--------+ + | Reason | Comments | +--------+ + | Other | Periorperative risk | +--------+ + Encounter Details +--------+ + + + + | Date | Type | Department | Care Team | Description | +--------+ + + + + | 06/08/ | Telephone | Cardiology | Adriana Holly | Other | | 2014 | | Preventive at [facility] | RASHI Restrepo [address] | (Periorperative risk | | | | [address] | [address] [place], | ) | | | | Mailcode: [facility] | [place] [address] | | | | | [facility] | [phone] | | | | | and [place], | | | | | | [address] | | | | | | [place], [place] | | | | | | [address] | | | | | | [phone] | | | +--------+ + + + [...] | | | | | [address] [place], | | | | | | [place] [address] | | | | | | [phone] | | | | | | | [...] | | | | | [address] [place], | | | | | | [place] [address] | | | | | | [phone] | | | | | | | | +--------+ + + + + documented as of this encounter Visit Diagnoses Not on filedocumented in this encounter"
--- OUTSIDE RECORDS SUMMARY | ~2019-07-17 | XMS | Encounter Summary ---
Demographics + + + | Address | [address] | | | [place] [address] | + + + | Home Phone | | + + + | Preferred Language | Unknown | + + + | Marital Status | Single | + + + | Gnosticist Affiliation | ZEFERINO | + + + | Race | or | + + + | Ethnic Group | Not or | + + + Author + + + | Author | [facility] [employer] [facility] | + + + | Organization | [facility] [employer] [facility] | + + + | Address | Unknown | + + + | Phone | Unavailable | + + + Support + + + + + | Name | Relationship | Address | Phone | + + + + + | Yennifer Batista | ECON | [address] | | | | | [place] | | | | | [address] | | + + + + + Care Team Providers + +------+ + | Care Building Estimator Name | Role | Phone | + +------+ + | Ed Landis MD | PCP | | + +------+ + Encounter Details +--------+ + + + + | Date | Type | Department | Care Team | Description | +--------+ + + + + | 09/12/ | Inside | [facility] | Katie Kohler | | | 2016 | Referral | [facility] [address] | MD Kiesha,MPH [address] | | | | Order | [address] Mailcode: | [address] | | | | | [address] [facility] | [place] [address] | | | | | Health and Healing, | [phone] | | | | | [address] | | | | | | [place], [place] | | | | | | [address] | | | | | | [phone] | | | +--------+ + + + [...] | | | | | | [place] [address] | | | | | | [phone] | | | | | | | [...] | | | | | | [place] [address] | | | | | | [phone] | | | | | | | | +--------+ + + + + documented as of this encounter Results EGD (09/17/2016 4:08 PM PST) + + | Specimen | + + | | + + + +------- -------+ | Narrative | Perfor med At | + +------- -------+ | MRN: | [facility] | | [id number] Date: 09/17/2016Patient Name: Order #: [id number] | ENDOSC OPY | | of : 1960CSN: [id number]: [facility] 2Procedure: | | | Upper GI endoscopyIndications: Dysphagia, For therapy of | | | esophageal strictureProviders: RICARDO STARK MD | | | (Doctor), CHERRY TIPTON RNReferring MD: KATIE Olsen | | | MD SERJIO, ED ROSAMPTSRequesting Provider: Medicines: | | | Midazolam 7 [...] The [employer] GIF-[id number] Gastroscope | | | #[id number] was introduced through the | | | [...]
--- OUTSIDE RECORDS SUMMARY | ~2019-07-17 | XMS | Encounter Summary ---
Demographics + + + | Address | [address] | | | [place] [address] | + + + | Home Phone | | + + + | Preferred Language | Unknown | + + + | Marital Status | Single | + + + | Yarsanism Affiliation | ZEFERINO | + + + | Race | or | + + + | Ethnic Group | Not or | + + + Author + + + | Author | [facility] [employer] [facility] [employer] [facility] | + + + | Organization | [facility] [employer] [facility] | + + + | Address | Unknown | + + + | Phone | Unavailable | + + + Support + + + + + | Name | Relationship | Address | Phone | + + + + + | Yennifer Batista | ECON | [address] | | | | | [place] | | | | | [address] | | + + + + + Care Team Providers + +------+ + | Care Sales Service Technician Name | Role | Phone | + +------+ + | Sujatha Sullivan | PCP | | | COMMERCIAL FLOOR COVERING INSTALLER | | | + +------+ + Encounter [...] | | at [place] [address] | [facility] | | | | | [address] | [place] [address] | | | | | Loop Mailcode: | | | | | | [id number] | | | | | | [facility] | | | | | | [place], [place] | | | | | | [address] | | | | | | [phone] | | | +--------+ + + + [...] +---------+--------+ + documented as of this encounter Plan [...] | | | | | | [place] [address] | | | | | | [phone] | | | | | | | [...] | | | | | | [place] [address] | | | | | | [phone] | | | | | | | [...]
--- OUTSIDE RECORDS SUMMARY | ~2019-07-17 | XMS | Encounter Summary ---
Demographics + + + | Address | [address] | | | [place] [address] | + + + | Home Phone [...] Author + + + | Author | [facility] [employer] [facility] | + + + | Organization | [facility] [employer] [facility] | + + + | Address | Unknown | + + + | Phone | Unavailable | + + + Support + + + + + | Name | Relationship | Address | Phone | + + + + + | Yennifer Batista | ECON | [address] | | | | | [place] | | | | | [address] | | + + + + + Care Team Providers + +------+ + | Care Toll Bridge Attendant Name | Role | Phone | + +------+ + | Ed Landis MD PCP | | + +------+ + Reason for Visit + + + | Reason | Comments | + + + | Telephone follow-up | 06/30/18 | + + + Encounter Details +--------+ + + + + | Date | Type | Department | Care Team | Description | +--------+ + + + + | 07/01/ | Telephone | Endoscopic | Damaris Woods MD | Telephone follow-up | | 2018 | | Procedural Unit at | [address] | (06/30/18) | | | | [facility] [address] [facility] | | | | | [place] | [place] [address] | | | | | Mailcode: [id number] | [phone] | | | | | [address] | | | | | | [address] [place], [place] | | | | | | [address] | | | | | | [phone] | | | +--------+ + + + [...] | | | | | [address] [place], | | | | | | [place] [address] | | | | | | [phone] | | | | | | | [...] | | | | | [place], | | | | | | [place] [address] | | | | | | [phone] | | | | | | | | +--------+ + + + + documented as of this encounter Visit Diagnoses Not on filedocumented in this encounter"
--- OUTSIDE RECORDS SUMMARY | ~2019-07-17 | XMS | Encounter Summary ---
Demographics + + + | Address | [address] | | | [place] [address] | + + + | Home Phone [...] + + | Author | [facility] [employer] [facility] | + + + | Organization | [facility] [employer] [facility] | + + + | Address | Unknown | + + + | Phone | Unavailable | + + + Support + + + + + | Name | Relationship | Address | Phone | + + + + + | Yennifer Batista | ECON | [address] | | | | | [place] | | | | | [address] | | + + + + + Care Team Providers + +------+ + | Care Product Control And Logistics Analyst Name | Role | Phone | + [...] | +--------+ + + + + | 06/22/ | Telephone-S | Preoperative | | Pre-operative | | 2018 | cheduled | Medicine Clinic at | | evaluation | | | | [facility] | | | | | | Stay [address] | | | | [address] | | | | | | Mailcode: [id number] | | | | | | [address] | | | | | | [address] [place], [place] | | | | | | [address] | | | | | | [phone] | | | +--------+ + + + + Anesthesia Record + + + + + | Procedure Name | Responsible | Anesthesia Start | Anesthesia Stop Time | | | Anesthesiologist | Time | | + + + + + | MEGAN | Nighat Ac, | 06/30/18 1602 | [...] Forearm; 20 g; None; No; | Penelope Leigh, RN | Alonanataliyaantoinette Liliana, RN | | IV | Positive; 06/30/18; 9830; | | | | | Discharge | [...] of this encounter Patient Instructions Patient Instructions bAby Nguyễn RN - 06/18/2018 2:40 PM PSTFormatting of this note dariana ht be different [...] perfume, lotions or powder. Remove any nail burmese from at least one fingernail. Do not [...] Surgery Check in Locations Day Stay Unit [address], fourth floor Room 4519 Surgery Check in Time: Someone from your surgeon's office or [facility] will provide you with information regarding your [...] it is after office hours, call the [facility] charging board operator at [phone] and ask them to page your doc [...] | | | | | | [place] [address] | | | | | | [phone] | | | | | | | [...] | | | | | | [place] [address] | | | | | | [phone] | | | | | | | | +--------+ + + + + documented as of this encounter Visit Diagnoses Not on filedocumented in this encounter"
--- OUTSIDE RECORDS SUMMARY | ~2019-07-17 | XMS | Encounter Summary ---
Demographics + + + | Address | [address] | | | [place] [address] | + + + | Home Phone | | + + + | Preferred Language | Unknown | + + + | Marital Status | Single | + + + | Sabianism Affiliation | ZEFERINO | + + + | Race | or | + + + | Ethnic Group | Not or | + + + Author + + + | Author | [facility] [employer] [facility] | + + + | Organization | [facility] [employer] [facility] | + + + | Address | Unknown | + + + | Phone | Unavailable | + + + Support + + + + + | Name | Relationship | Address | Phone | + + + + + | Yennifer Batista | ECON | [address] | | | | | [place] | | | | | [address] | | + + + + + Care Team Providers + +------+ + | Care Cnmt Name | Role | Phone | + [...] 2017 | | General Surgery at | [facility] | | | | | PPV [address] [place], [place] | | | | | [address] | [address] | | | | | Mailcode: [id number] | | | | | | [address] | | | | | | [address] [place], [place] | | | | | | [address] | | | | | | [phone] | | | +--------+ + + + [...] | | | | | | [place] [address] | | | | | | [phone] | | | | | | | [...] | | | | | | [place] [address] | | | | | | [phone] | | | | | | | | +--------+ + + + + documented as of this encounter Visit Diagnoses Not on filedocumented in this encounter"
--- OUTSIDE RECORDS SUMMARY | ~2019-07-17 | XMS | Encounter Summary ---
Demographics + + + | Address | [address] | | | [place] [address] | + + + | Home Phone | | + + + | Preferred Language | Unknown | + + + | Marital Status | Single | + + + | Mormon Affiliation | ZEFERINO | + + + | Race | or | + + + | Ethnic Group | Not or | + + + Author + + + | Author | [facility] | + + + | Organization | [facility] | + + + | Address | Unknown | + + + | Phone | Unavailable | + + + Support + + + + + | Name | Relationship | Address | Phone | + + + + + | Yennifer Batista | ECON | [address] | | | | | [place] | | | | | [address] | | + + + + + Care Team Providers + +------+ + | Care Clothes Presser Name | Role | Phone | + +------+ + | Sujatha Sullivan | PCP | | | CHEST PAINTING AND SEALING SUPERVISOR | | | + +------+ + Reason [...] | 06/02/ | Office | Urology at [facility] | Theresa Beyer, | Adrenal mass, left | | 2013 | Visit | [address] | [address] | ([facility]) (Primary Dx) | | | | Mailcode: CH10U | [place], [place] [address] | | | | | [place] for [facility] | [phone] | | | | | and [place], | | | | | | | | | | | | Floor [place], [place] | | | | | | [address] | | | | | | [phone] | | | +--------+---------+ + + + [...] in this encounter Patient Instructions Patient Instructions Cristi Conroy RN - 06/02/2014 4:31 PM PSTPresurgical Preparation f or Urologic Surgery: This is accomplished by adhering [...] of this diet are: Water, Helen lokesh, Lemon-larsen bay soft drinks, Apple juice, Tea or c offee without creamer, Gatorade/sports drinks, Jell-O, Broth soups, Popsicle. 2. Laxative: These laxatives are liquids and are taken by mouth. They will stimulate bowel movements. Magnesium Citrate. Drink 1 bottle(s) of magnesium citrate at 12:00pm (or, the early aftern oon) the day before your surgery. Stay close to the bathroom. This is purchased over the Spaseebo. 3. Hibiclen's (This soap will be provided [...] speak to the Urology Resident who is lead recreation assistant. documented in this encounter Progress Notes Theresa [...] of care. documented in this en counter Plan of Treatment +--------+ + + + [...] | | | | | [address] [place], | | | | | | [place] [address] | | | | | | [phone] | | | | | | | [...] | | | | | Shania [place], | | | | | | [place] [address] | | | | | | [phone] | | | | | | | | +--------+ + + + + documented as of this encounter Visit Diagnoses + + | Diagnosis | + + | Adrenal mass, left (HCC) - Primary Unspecified disorder of adrenal glands | + + documented in this encounter"
--- OUTSIDE RECORDS SUMMARY | ~2019-07-17 | XMS | Encounter Summary ---
Demographics + + + | Address | [address] | | | [place] [address] | + + + | Home Phone | | + + + | Preferred Language | Unknown | + + + | Marital Status | Single | + + + | Protestant Affiliation | ZEFERINO | + + + | Race | or | + + + | Ethnic Group | Not or | + + + Author + + + | Author | [facility] | + + + | Organization | [facility] | + + + | Address | Unknown | + + + | Phone | Unavailable | + + + Support + + + + + | Name | Relationship | Address | Phone | + + + + + | Yennifer Batista | ECON | [address] | | | | | [place] | | | | | [address] | | + + + + + Care Team Providers + +------+ + | Care Data Processing Systems Project Planner Name | Role | Phone | + [...] Stricture | MD Ricardo | [address] | | | | | of esophagus | [address] | | | | | Procedures | [address] | Mailcode: | | | | | CONSULT TO | [place], [place] | [facility] | | | | | GI | [address] | for Health | | | | | PROCEDURE | Phone: | and Healing, | | | | | UNIT: EGD | [phone] | [address] | | | | | [place] UPPER GI | Fax: | [place], [place] | | | | | ENDOSCOPY,BI | [phone] | [address] | | | | | OPSY | | Phone: | | | | | | | [phone] | | | | | | | Fax: | | | | | | | [phone] | +--------+--------+ + + + + Reason [...] + + | 09/17/ | Hospital | [facility] GI PROCEDURE | Ricardo Mason MD | | | 2017 | Encounter | [address] | [address] | | | | | Ave Mailcode: [facility] | [place], [place] | | | | | [facility] | [address] | | | | | Health and Healing, | [phone] | | | | | [place] [address] | | | | | | [place], [place] | | | | | | [address] | | | | | | [phone] | | | +--------+ + + + [...] documented in this encounter Discharge Instructions Instructions Stefanie Tipton RN - 09/17/2016Icard Care Instructions after EGD (Upper Endo scopy) [...] hours or on weekends and holiday Hospital Brand Protection Manager toll free [phone]. [phone] and have the GI doctor conciliation court judge paged. The provider who performed your procedure [...] be sent through Care Everywhere.BLAND SOFT DIET (NAMIBIAN)documented in this encounter Medications at Time of [...] 4:27 PM PST PRE PROCEDURE NOTE: MR# [id number] Subjective: Franck Batista is a 56 y.o. [...] in this enc ounter Plan of Treatment +--------+ + + + [...] | | | | | | [place] [address] | | | | | | [phone] | | | | | | | [...] | | | | | | [place] [address] | | | | | | [phone] | | | | | | | [...] -------+ | MRN: | [facility] | | [id number] Date: 09/17/2016Patient Name: Order #: [id number] | ENDOSC OPY | | of : 1960CSN: [id number]: [facility] 2Procedure: | | | Upper GI endoscopyIndications: Dysphagia, For therapy of | | | esophageal strictureProviders: RICARDO MASON MD | | | (Doctor), STEFANIE TIPTON RNReferring MD: KATIE Olsen | | | MD SERJIO, ED Elias QUAEMPTSRequesting Provider: Medicines: | | | [...] The Olympus [id number] Gastroscope | | | #[id number] was introduced through the | | | [...]
--- OUTSIDE RECORDS SUMMARY | ~2019-07-17 | XMS | Encounter Summary ---
Demographics + + + | Address | [address] | | | [place] [address] | + + + | Home Phone | | + + + | Preferred Language | Unknown | + + + | Marital Status | Single | + + + | Muslim Affiliation | ZEFERINO | + + + | Race | or | + + + | Ethnic Group | Not or | + + + Author + + + | Author | [facility] | + + + | Organization | [facility] | + + + | Address | Unknown | + + + | Phone | Unavailable | + + + Support + + + + + | Name | Relationship | Address | Phone | + + + + + | Yennifer Batista | ECON | [address] | | | | | [place] | | | | | [address] | | + + + + + Care Team Providers + +------+ + | Care Multiple Drill Operator Name | Role | Phone | + +------+ + | Ed Landis MD | PCP | | + +------+ + Encounter Details +--------+ + + + + | Date | Type | Department | Care Team | Description | +--------+ + + + + | 05/30/ | Transcribe | [facility]OMO at [facility] | Transcribe | | | 2019 | Orders | [facility] [address] | Encounter, Provider, | | | | | John [place] Mailcode: | MD [address] | | | | | [facility] | [place] [address] | | | | | Health and Healing, | | | | | | [address] | | | | | | [place], [place] | | | | | | [address] | | | | | | [phone] | | | +--------+ + + + [...] | | | | | | [place] [address] | | | | | | [phone] | | | | | | | [...] | | | | | | [place] [address] | | | | | | [phone] | | | | | | | | +--------+ + + + + + + +--------+ + + | Name | Type | Priori | Associated Diagnoses | Order Schedule | | | | ty | | | + + +--------+ + + | COLONOSCOPY | Procedures | Routin | Other vascular | Expected: 05/30/2019 | | | | e | disorders of | | | | | | intestine (HCC) | | + + +--------+ + + documented as of this encounter Visit Diagnoses + + | Diagnosis | + + | 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
--- OUTSIDE RECORDS SUMMARY | ~2019-07-17 | XMS | Encounter Summary ---
Demographics + + + | Address | [address] | | | [place] [address] | + + + | Home Phone [...] Author | [facility] | + + + | Organization | [facility] | + + + | Address | Unknown | + + + | Phone | Unavailable | + + + Support + + + + + | Name | Relationship | Address | Phone | + + + + + | Yennifer Batista | ECON | [address] | | | | | [place] | | | | | [address] | | + + + + + Care Team Providers + +------+ + | Care Storage Center Manager Name | Role | Phone | [...] Benign | MD Noble | [address] | | | | | esophageal | [address] | | | | | stricture | Zeeshan | Mailcode: | | | | | S/P | [address] | [facility] Center | | | | | dilatation | [place], [place] | for Health | | | | | of | [address] | and Healing, | | | | | esophageal | Phone: | [address] | | | | | stricture | [phone] | [place], [place] | | | | | Polyp of | Fax: | [phone] | | | | | colon, | [phone] | Phone: | | | | | unspecified | | [phone] | | | | | part of | | Fax: | | | | | colon, | | [phone] | | | | | unspecified | [...] | | | | | | | [facility] | | | | | | | | | | | | | | ENDOSCOPY,BI | | | | | | | OPSY [facility] | | | | | | | [...] Closed | | Trauma Center | | [place], | Harry Rosa | | | | | | Ed Nielson MD | Gen Surg Ppv | | | | | | [place] | [address] | | | | | | [place] | [address] | | | | | | Health | Mailcode: | | | | | | Center | [address] | | | | | | [address] | [facility] | | | | | | [facility] | [address] | | | | | | [address] | [place], [place] | | | | | | [place], | [address] | | | | | | [place] [address] | Phone: | | | | | | Phone: | [phone] | | | | | | [phone] | Fax: | | | | | | Fax: | [phone] | | | | | | [phone] | | +--------+--------+ + + + + [...] | | | PPV [address] | Dx); S/P dilatation | | | | [address] | [place], [place] | of esophageal | | | | Mailcode: L[address]A | [address] | stricture; Severe | | | | [facility] | [phone] | protein-calorie | | | | [address] [place], [place] | | malnutrition (Sen: | | | | [address] | | less than 60% of | | | | [phone] | | standard weight) | | | [...] esophageal stricture and polypectomy. Since that time h e has gained weight to 105 pounds. He [...] and in light of his infrequent BMs I emmanuel jolie he would benefit from EGD and colonoscopy. I have consulted GI for these. 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 He has chosen to have the CT in [place] . Plan: Patient will follow up after GI workup and CT scan. I spent 30 minutes with Franck Batista, 70 % of that time was spent [...] | | | | | [address] [place], | | | | | | [place] [address] | | | | | | [phone] | | | | | | | [...] | | | | | Shania [place], | | | | | | [place] [address] | | | | | | [phone] | | | | | | | [...]
--- OUTSIDE RECORDS SUMMARY | ~2019-07-17 | XMS | Encounter Summary ---
Demographics + + + | Address | [address] | | | [place] [address] | + + + | Home Phone [...] Author + + + | Author | [facility] [employer] [facility] | + + + | Organization | [facility] [employer] [facility] | + + + | Address | Unknown | + + + | Phone | Unavailable | + + + Support + + + + + | Name | Relationship | Address | Phone | + + + + + | Yennifer Batista | ECON | [address] | | | | | [place] | | | | | [address] | | + + + + + Care Team Providers + +------+ + | Care Fence Maker Name | Role | Phone | + +------+ + | Ed Landis MD | PCP | | + +------+ + Encounter Details +--------+ + + + + | Date | Type | Department | Care Team | Description | +--------+ + + + + | 12/22/ | Documentati | Trauma Emergency | Tra, [address] | | | 2018 | on | General Surgery at | [facility] | | | | | [address] | [address] [place], [place] | | | | | [address] | [address] | | | | | Mailcode: [address]A | | | | | | [address] | | | | | | [address] [facility] [place] | | | | | | [address] | | | | | | [phone] | | | +--------+ + + + [...] | | | | | | [place] [address] | | | | | | [phone] | | | | | | | [...] | | | | | | [place] [address] | | | | | | [phone] | | | | | | | | +--------+ + + + + documented as of this encounter Visit Diagnoses Not on filedocumented in this encounter"
--- OUTSIDE RECORDS SUMMARY | ~2019-07-17 | XMS | Encounter Summary ---
Demographics + + + | Address | [address] | | | [place] [address] | + + + | Home Phone | | + + + | Preferred Language | Unknown | + + + | Marital Status | Single | + + + | Presybeterian Affiliation | ZEFERINO | + + + | Race | or | + + + | Ethnic Group | Not or | + + + Author + + + | Author | [facility] | + + + | Organization | [facility] [employer] [facility] | + + + | Address | Unknown | + + + | Phone | Unavailable | + + + Support + + + + + | Name | Relationship | Address | Phone | + + + + + | Yeninfer Batista | ECON | [address] | | | | | [place] | | | | | [address] | | + + + + + Care Team Providers + +------+ + | Care Standards Engineer Name | Role | Phone | [...] [id number] | | | | | | [facility] | | | | | | [address] [place], [place] | | | | | | [address] | | | | | | [phone] | | | +--------+ + + + [...] perfume, lotions or powder. Remove any nail niuean from at least one fingernail. Do not [...] Surgery Check in Locations Day Stay Unit [facility], fourth floor Room 1809 Surgery Check in Time: Someone from your surgeon's office or [facility] will provide you with information regarding [...] is after office hours, call the [facility] tension machine operator at [phone] and ask them to page your doc [...] | | | | | [address] [place], | | | | | | [place] [address] | | | | | | [phone] | | | | | | | [...] | | | | | [place] | | | | | | [place] [address] | | | | | | [phone] | | | | | | | | +--------+ + + + + documented as of this encounter Visit Diagnoses Not on filedocumented in this encounter"
--- OUTSIDE RECORDS SUMMARY | ~2019-07-17 | XMS | Encounter Summary ---
Demographics + + + | Address | [address] | | | [place] [address] | + + + | Home Phone | | + + + | Preferred Language | Unknown | + + + | Marital Status | Single | + + + | Restoration Affiliation | ZEFERINO | + + + | Race | or | + + + | Ethnic Group | Not or | + + + Author + + + | Author | [facility] | + + + | Organization | [facility] | + + + | Address | Unknown | + + + | Phone | Unavailable | + + + Support + + + + + | Name | Relationship | Address | Phone | + + + + + | Yennifer Batista | ECON | [address] | | | | | [place] | | | | | [address] | | + + + + + Care Team Providers + +------+ + | Care Jewelry Finisher Name | Role | Phone | + +------+ + | Ed Landis MD PCP | | + +------+ + Encounter Details +--------+------+ + + + | Date | Type | Department | Care Team | Description | +--------+------+ + + + | 09/01/ | Lab | Laboratory at [facility] | | Adrenal mass (HCC) | | 2014 | | [address] | | | | | | [place], [place] | | | | | | [address] | | | | | | [phone] | | | +--------+------+ + + + [...] | | | | | [place], | | | | | | [place] [address] | | | | | | [phone] | | | | | | | [...] | | | | | | [place] [address] | | | | | | [phone] | | | | | | | [...] LABORATORY | [address] | [place] [address] | | | [facility] | | | | | HEALTH [...] | | | LABORATORY | | | SYRIAN | | | SERVICES, | | | [...] + + | Study patient Please page [phone] when the patient arrive at the | [facility] | | lab. GFR is estimated using [...] | + + + + + | [facility] | [address] | [place] [address] | | | SERVICES, CAM | ELLEN MARINELLI | | | + + + + + documented in this encounter Visit Diagnoses + + | Diagnosis | + + | Adrenal mass (HCC) Unspecified disorder of adrenal glands | + + documented in this encounter"
--- OUTSIDE RECORDS SUMMARY | ~2019-07-17 | XMS | Encounter Summary ---
Demographics + + + | Address | [address] | | | [place] [address] | + + + | Home Phone [...] + + + | Author | [facility] | + + + | Organization | [facility] | + + + | Address | Unknown | + + + | Phone | Unavailable | + + + Support + + + + + | Name | Relationship | Address | Phone | + + + + + | Yennifer Batista | ECON | [address] | | | | | [place] | | | | | [address] | | + + + + + Care Team Providers + +------+ + | Care Psychologist Chief Name | Role | Phone | + [...] Batista | | | | | Rd [facility] | Zeeshan Jauregui | | | | | Hospital Admitting | [place], [place] | | | | | Desk Located on the | [address] | | | | | 9th floor | [phone] | | | | | [place], [place] | | | | | | [address] | | | +--------+ + + + [...] MD | | | | | at [facility] [[email or web address] 6A (canceled) | | | | | [...] | | | | | | [place] [address] | | | | | | [phone] | | | | | | | [...] | | | | | | [place] [address] | | | | | | [phone] | | | | | | | | +--------+ + + + + documented as of this encounter Visit Diagnoses Not on filedocumented in this encounter"
--- OUTSIDE RECORDS SUMMARY | ~2019-07-17 | XMS | Encounter Summary ---
Demographics + + + | Address | [address] | | | [place] [address] | + + + | Home Phone [...] Author + + + | Author | [facility] | + + + | Organization | [facility] [facility] | + + + | Address | Unknown | + + + | Phone | Unavailable | + + + Support + + + + + | Name | Relationship | Address | Phone | + + + + + | Yennifer Batista | ECON | [address] | | | | | [place] | | | | | [address] | | + + + + + Care Team Providers + +------+ + | Care Company Secretary Name | Role | Phone | + +------+ + | Ed Landis MD PCP | | + +------+ + Encounter Details +--------+ + + + + | Date | Type | Department | Care Team | Description | +--------+ + + + + | 05/23/ | Documentati | [facility] | Yady, Estelita Procedure | | | 2019 | on | [facility] [address] | | | | | | [address] Mailcode: | | | | | | [address] [facility] | | | | | | Health and Healing, | | | | | | [address] | | | | | | [place], [place] | | | | | | [address] | | | | | | [phone] | | | +--------+ + + + [...] | | | | | | [place] [address] | | | | | | [phone] | | | | | | | [...] | | | | | | [place] [address] | | | | | | [phone] | | | | | | | | +--------+ + + + + documented as of this encounter Visit Diagnoses Not on filedocumented in this encounter"
--- OUTSIDE RECORDS SUMMARY | ~2019-07-17 | XMS | Encounter Summary ---
Demographics + + + | Address | [address] | | | [place] [address] | + + + | Home Phone [...] + | Author | [facility] | + + + | Organization | [facility] | + + + | Address | Unknown | + + + | Phone | Unavailable | + + + Support + + + + + | Name | Relationship | Address | Phone | + + + + + | Yennifer Batista | ECON | [address] | | | | | [place] | | | | | [address] | | + + + + + Care Team Providers + +------+ + | Care Home Care And Home Health Aides Teacher Name | Role | Phone | + +------+ + | Ed Landis MD PCP | | + +------+ + Encounter Details +--------+ + + + + | Date | Type | Department | Care Team | Description | +--------+ + + + + | 01/22/ | Inside | [facility] | [place], | | | 2018 | Referral | [facility] [address] | [address] [facility] | | | | Order | [address] Mailcode: | Zeeshan Jauregui | | | | | [address] [place] for | [place], [place] | | | | | Health and Healing, | [address] | | | | | [place] [address] | [phone] | | | | | [place], [place] | | | | | | [address] | | | | | | [phone] | | | +--------+ + + + [...] | | | | | | [place] [address] | | | | | | [phone] | | | | | | | [...] | | | | | | [place] [address] | | | | | | [phone] | | | | | | | | +--------+ + + + + documented as of this encounter Results EGD (02/17/2018 2:39 PM PDT) + + | Specimen | + + | | + + + + + | Narrative | Performed At | + + + | MRN: | [facility] | | [id number] Date: 02/17/2018Patient Name: Franck Mares #: | ENDOSCOPY | | [id number] of : 1960CSN: [id number] Type: | | | [facility] 1Procedure: Upper GI | | | endoscopyIndications: DysphagiaProviders: | | | REMIGIO DRAKE MD (Doctor), OLIVER GOMEZ RN (Nurse), | | | TYE GLYNN (Paper Folding Machine Operator), SANDRA MORALES, Paper Folding Machine Operator | | | (Paper Folding Machine Operator)Referring MD: | | | NOBLE CHILDS MDRequesting Provider: Medicines: | | | [...] | | | The Olympus [id number]-[id number] Gastroscope #[id number] was | | | introduced through the [...]
--- OUTSIDE RECORDS SUMMARY | ~2019-07-17 | XMS | Encounter Summary ---
Demographics + + + | Address | [address] | | | [place] [address] | + + + | Home Phone [...] Author + + + | Author | [facility] | + + + | Organization | [facility] [employer] [facility] | + + + | Address | Unknown | + + + | Phone | Unavailable | + + + Support + + + + + | Name | Relationship | Address | Phone | + + + + + | Yennifer aBtista | ECON | [address] | | | | | [place] | | | | | [address] | | + + + + + Care Team Providers + +------+ + | Care Home Service Consultant Name | Role | Phone | + +------+ + | Ed Landis MD PCP | | + +------+ + Encounter Details +--------+ + + + + | Date | Type | Department | Care Team | Description | +--------+ + + + + | 08/22/ | Pharmacy | Outpatient Retail | | | | 2014 | Visit | [facility] | | | | | | [address] | | | | | | [place], [place] | | | | | | [address] | | | | | | [phone] | | | +--------+ + + + [...] | | | | | Shania Marin[address] [place], | | | | | | [place] [address] | | | | | | [phone] | | | | | | | [...] | | | | | Shania Marinelli [place], | | | | | | [place] [address] | | | | | | [phone] | | | | | | | | +--------+ + + + + documented as of this encounter Visit Diagnoses Not on filedocumented in this encounter"
--- OUTSIDE RECORDS SUMMARY | ~2019-07-17 | XMS | Encounter Summary ---
Demographics + + + | Address | [address] | | | [place] [address] | + + + | Home Phone [...] + + + | Author | [facility] | + + + | Organization | [facility] | + + + | Address | Unknown | + + + | Phone | Unavailable | + + + Support + + + + + | Name | Relationship | Address | Phone | + + + + + | Yennifer Batista | ECON | [address] | | | | | [place] | | | | | [address] | | + + + + + Care Team Providers + +------+ + | Care Vertical Lathe Operator Name | Role | Phone | [...] Refill Request | | 2018 | | [place] [facility] [address] | [address] | | | | | [address] | [place], [place] | | | | | Mailcode: [id number] | [address] | | | | | [facility] | [phone] | | | | | and Healing, | | | | | | Building [address] | | | | | | [facility] [place] | | | | | | [address] | | | | | | [phone] | | | +--------+--------+ + + + [...] | | | | | | [place] [address] | | | | | | [phone] | | | | | | | [...] | | | | | | [place] [address] | | | | | | [phone] | | | | | | | | +--------+ + + + + documented as of this encounter Visit Diagnoses + + | Diagnosis | + + | Benign esophageal stricture - Primary Stricture and stenosis of esophagus | + + | Gastroesophageal reflux disease with esophagitis | + + documented in this encounter"
--- OUTSIDE RECORDS SUMMARY | ~2019-07-17 | XMS | Encounter Summary ---
Demographics + + + | Address | [address] | | | [place] [address] | + + + | Home Phone [...] + | Author | [facility] | + + + | Organization | [facility] | + + + | Address | Unknown | + + + | Phone | Unavailable | + + + Support + + + + + | Name | Relationship | Address | Phone | + + + + + | Yennifer Batista | ECON | [address] | | | | | [place] | | | | | [address] | | + + + + + Care Team Providers + +------+ + | Care Fender Finisher Name | Role | Phone | + +------+ + | Ed Landis MD PCP | | + +------+ + Encounter Details +--------+ + + + + | Date | Type | Department | Care Team | Description | +--------+ + + + + | 08/31/ | Flagsetter | Urology at [facility] | [place], , | Adrenal mass (HCC) | | 2015 | | [address] | MD 2973 | (Primary Dx) | | | | Mailcode: [id number] | [facility] [address] | | | | | [facility] | [phone] | | | | | and Healing, | | | | | | Building [address] | | | | | | [place], [place] | | | | | | [address] | | | | | | [phone] | | | +--------+ + + + [...] | | | | | | [place] [address] | | | | | | [phone] | | | | | | | [...] | | | | | | [place] [address] | | | | | | [phone] | | | | | | | [...] + + | Study patient Please page [phone] when the patient arrive at the | [...] | + + + + + | [facility] [employer] | [address] | [place] [address] | | | SERVICES, CORE | [address] | | | + + + + + documented in this encounter Visit Diagnoses + + | Diagnosis | + + | 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"
--- OUTSIDE RECORDS SUMMARY | ~2019-07-17 | XMS | Encounter Summary ---
Demographics + + + | Address | [address] | | | [place] [address] | + + + | Home Phone [...] + | Author | [facility] | + + + | Organization | [facility] | + + + | Address | Unknown | + + + | Phone | Unavailable | + + + Support + + + + + | Name | Relationship | Address | Phone | + + + + + | Yennifer Batista | ECON | [address] | | | | | [place] | | | | | [address] | | + + + + + Care Team Providers + +------+ + | Care Hydroponics Grower Name | Role | Phone | + [...] [address] | | | | | Yves [facility] | Shania Marinelli [place], | | | | | Hospital Admitting | [place] [address] | | | | | Desk Located on the | [phone] | | | | | 9th floor | | | | | | [facility] [place] | [place], | | | | | [address] | [address] | | | | | | [address] | | | | | | [place], [place] | | | | | | [address] | | | | | | [phone] | | | | | | | [...] | | | | | | [place] [address] | | | | | | [phone] | | | | | | | [...] | | | | | | [place] [address] | | | | | | [phone] | | | | | | | [...] PST | | | | | Until [facility] 08/17/14 at 1318 | iology | | [...]
--- OUTSIDE RECORDS SUMMARY | ~2019-07-17 | XMS | Encounter Summary ---
Demographics + + + | Address | [address] | | | [place] [address] | + + + | Home Phone | | + + + | Preferred Language | Unknown | + + + | Marital Status | Single | + + + | Moravian Affiliation | ZEFERINO | + + + | Race | or | + + + | Ethnic Group | Not or | + + + Author + + + | Author | [facility] [facility] | + + + | Organization | [facility] [employer] [facility] | + + + | Address | Unknown | + + + | Phone | Unavailable | + + + Support + + + + + | Name | Relationship | Address | Phone | + + + + + | Yennifer Batista | ECON | [address] | | | | | [place] | | | | | [address] | | + + + + + Care Team Providers + +------+ + | Care Carpet Cleaning Technician Name | Role | Phone | + +------+ + | Ed Landis MD PCP | | + +------+ + Encounter Details +--------+ + + + + | Date | Type | Department | Care Team | Description | +--------+ + + + + | 01/11/ | Documentati | [facility] at [facility] | Yady, Estelita Procedure | | | 2018 | on | [facility] [address] | | | | | | [address] Mailcode: | | | | | | OC2L [facility] | | | | | | Health and Healing, | | | | | | Building 2 | | | | | | [place], [place] | | | | | | [address] | | | | | | [phone] | | | +--------+ + + + [...] | | | | | | [place] [address] | | | | | | [phone] | | | | | | | [...] | | | | | | [place] [address] | | | | | | [phone] | | | | | | | | +--------+ + + + + documented as of this encounter Visit Diagnoses Not on filedocumented in this encounter"
--- OUTSIDE RECORDS SUMMARY | ~2019-07-17 | XMS | Encounter Summary ---
Demographics + + + | Address | [address] | | | [place] [address] | + + + | Home Phone [...] Author + + + | Author | [facility] [employer] [facility] | + + + | Organization | [facility] [employer] [facility] | + + + | Address | Unknown | + + + | Phone | Unavailable | + + + Support + + + + + | Name | Relationship | Address | Phone | + + + + + | Yennifer Batista | ECON | [address] | | | | | [place] | | | | | [address] | | + + + + + Care Team Providers + +------+ + | Care Hand Laminator Name | Role | Phone | + [...] | | | | [address] | [place], [place] | stricture; S/P | | | | Mailcode: [id number] | [address] | dilatation of | | | | [facility] | [phone] | esophageal | | | | [address] [place], [place] | | stricture; Severe | | | | [address] | | protein-calorie | | | | [phone] | | malnutrition (Sen: | | | [...] Childs MD [facility] EMERG[facility] GENERAL SURGERY AT [place] [address] [address] [facility] Mailcode: L223a [place] [address] [id number] Natacha Peace MD - 08/11/2016 3:00 PM [...] July of 2015 who was transferred from [facility] in Early July 2016 with 100 pound [...] ssment and plan. Natacha Nelson MD Pager [phone] PGY-2 General Surgery Emergency General Surgery Team [...] | | | | | | [place] [address] | | | | | | [phone] | | | | | | | [...] | | | | | | [place] [address] | | | | | | [phone] | | | | | | | [...]
--- OUTSIDE RECORDS SUMMARY | ~2019-07-17 | XMS | Encounter Summary ---
Demographics + + + | Address | [address] | | | [place] [address] | + + + | Home Phone | | + + + | Preferred Language | Unknown | + + + | Marital Status | Single | + + + | Mandaeism Affiliation | ZEFERINO | + + + | Race | or | + + + | Ethnic Group | Not or | + + + Author + + + | Author | [facility] [employer] [facility] | + + + | Organization | [facility] [employer] [facility] | + + + | Address | Unknown | + + + | Phone | Unavailable | + + + Support + + + + + | Name | Relationship | Address | Phone | + + + + + | Yennifer Batista | ECON | [address] | | | | | [place] | | | | | [address] | | + + + + + Care Team Providers + +------+ + | Care Child Support Case Officer Name | Role | Phone | [...] 2017 | on | Center at [facility] [address] | [address] | | | | | [address] | [place], [place] | | | | | Mailcode: Loving | [address] | | | | | [facility] and | [phone] | | | | | [facility] 2 | | | | | | [place], [place] | | | | | | [address] | | | | | | [phone] | | | +--------+ + + + [...] | | | | | | [place] [address] | | | | | | [phone] | | | | | | | [...] | | | | | | [place] [address] | | | | | | [phone] | | | | | | | | +--------+ + + + + documented as of this encounter Visit Diagnoses Not on filedocumented in this encounter"
--- OUTSIDE RECORDS SUMMARY | ~2019-07-17 | XMS | Encounter Summary ---
Demographics + + + | Address | [address] | | | [place] [address] | + + + | Home Phone [...] + + | Author | [facility] | + + + | Organization | [facility] [employer] [facility] | + + + | Address | Unknown | + + + | Phone | Unavailable | + + + Support + + + + + | Name | Relationship | Address | Phone | + + + + + | Yennifer Batista | ECON | [address] | | | | | [place] | | | | | [address] | | + + + + + Care Team Providers + +------+ + | Care [employer] Dean Name | Role | Phone | [...] Batista | | | | | Rd [facility] | [address] | | | | | Hospital Admitting | [place], [place] | | | | | Desk Located on the | [address] | | | | | 9th floor | [phone] | | | | | [place], [place] | | | | | | [address] | | | +--------+ + + + [...] MD | | | | | at [facility] [address] (canceled) | | | | | [...] | | | | | | [place] [address] | | | | | | [phone] | | | | | | | [...] | | | | | | [place] [address] | | | | | | [phone] | | | | | | | | +--------+ + + + + documented as of this encounter Visit Diagnoses Not on filedocumented in this encounter"
--- OUTSIDE RECORDS SUMMARY | ~2019-07-17 | XMS | Encounter Summary ---
Demographics + + + | Address | [address] | | | [place] [address] | + + + | Home Phone | | + + + | Preferred Language | Unknown | + + + | Marital Status | Single | + + + | Advent Affiliation | ZEFERINO | + + + | Race | or | + + + | Ethnic Group | Not or | + + + Author + + + | Author | [facility] [employer] [facility] | + + + | Organization | [facility] [employer] [facility] | + + + | Address | Unknown | + + + | Phone | Unavailable | + + + Support + + + + + | Name | Relationship | Address | Phone | + + + + + | Yennifer Batista | ECON | [address] | | | | | [place] | | | | | [address] | | + + + + + Care Team Providers + +------+ + | Care Roller Skate Assembler Name | Role | Phone | + +------+ + | Ed Landis MD PCP | | + +------+ + Encounter Details +--------+ + + + + | Date | Type | Department | Care Team | Description | +--------+ + + + + | 04/26/ | Anesthesia | Endoscopic | Abby Nguyễn RN | | | 2018 | Event | Procedural Unit at | [place], [place] | | | | | Maged [place] | [address] | | | | | [address] | | | | | | Mailcode: [id number] | | | | | | [address] | | | | | | [address] [place], [place] | | | | | | [address] | | | | | | [phone] | | | +--------+ + + + [...] | | | | | | [place] [address] | | | | | | [phone] | | | | | | | [...] | | | | | | [place] [address] | | | | | | [phone] | | | | | | | | +--------+ + + + + documented as of this encounter Visit Diagnoses Not on filedocumented in this encounter"
--- OUTSIDE RECORDS SUMMARY | ~2019-07-17 | XMS | Encounter Summary ---
Demographics + + + | Address | [address] | | | [place] [address] | + + + | Home Phone | | + + + | Preferred Language | Unknown | + + + | Marital Status | Single | + + + | Alevism Affiliation | ZEFERINO | + + + | Race | or | + + + | Ethnic Group | Not or | + + + Author + + + | Author | [facility] [facility] | + + + | Organization | [facility] [employer] [facility] | + + + | Address | Unknown | + + + | Phone | Unavailable | + + + Support + + + + + | Name | Relationship | Address | Phone | + + + + + | Yennifer Batista | ECON | [address] | | | | | [place] | | | | | [address] | | + + + + + Care Team Providers + +------+ + | Care Pound Keeper Name | Role | Phone | + [...] Pharmacy | | | | | | [address] | | | | | | Loop [place], [place] | | | | | | [address] | | | | | | [phone] | | | +--------+ + + + [...] | | | | | Shania Marinelli [place], | | | | | | [place] [address] | | | | | | [phone] | | | | | | | [...] | | | | | Shania Marinelli [place], | | | | | | [place] [address] | | | | | | [phone] | | | | | | | | +--------+ + + + + documented as of this encounter Visit Diagnoses Not on filedocumented in this encounter"
--- OUTSIDE RECORDS SUMMARY | ~2019-07-17 | XMS | Encounter Summary ---
Demographics + + + | Address | [address] | | | [place] [address] | + + + | Home Phone [...] Author + + + | Author | [facility] [employer] [facility] | + + + | Organization | [facility] [employer] [facility] | + + + | Address | Unknown | + + + | Phone | Unavailable | + + + Support + + + + + | Name | Relationship | Address | Phone | + + + + + | Yennifer Segovia | ECON | [address] | | | | | [place] | | | | | [address] | | + + + + + Care Team Providers + +------+ + | Care Experimental Preflight Mechanic Name | Role | Phone | + [...] | | [address] | [address] [place] [address] | ADRENALECTOMY | | | | Yves [facility] | [place] [address] | | | | | Hospital Admitting | [phone] | | | | | Desk Located on the | | | | | | 9th floor | | | | | | [place], [place] | | | | | | [address] | | | +--------+---------+ + + + [...] can cause constipation, so you may take fwwy-aim-ivgogge stool softeners (Senok ot-S, Miralax, Colace) following [...] Physician: Theresa Beyer MD Patient: COREEN SEGOVIA [id number] 24H events/Subjective: МАРИНА overnight. Emesis x1 yesterday [...] is Theresa Beyer MD. PATRICIA PATTERSON MD [facility] [address] [place] [address] Zay Sherman MD - 08/20/2014 4:54 AM PST Urology Progress Note Hospital Day: 3 Author: ZAY HERNANDEZ MD Attending Physician: Theresa Beyer MD Patient: COREEN SEGOVIA [id number] 24H events/Subjective: No acute events overnight. Pain [...] Resident - R5 Department of Urology Pager #[phone] ay Hernandez MD - 08/19/2014 7:49 AM PST Urology Progress Note Hospital Day: 2 Author: PATRICIA PATTERSON MD Attending Physician: Theresa Beyer MD Patient: COREEN SEGOVIA [id number] 24H events/Subjective: МАРИНА overnight. Pain is adequately [...] Caitlin Falk NP Adult Pain Service Pager [phone] Team Pager [phone] Caitlin Jiménez NP - 08/18/2014 8:02 AM [...] and summary of old medical records (source: [employer]), as summarized in the body of the note. CAITLIN FALK NP BILLING INFORMATION [facility] DEPARTMENT: [id number] Place of Service:- Inpatient Date of Service: 08/18/2014 CSN: [id number] Suggested Modifier: None Suggested CPT: 13895 - Daily mgmt epidural/subarachnoid drug administration Prolonged service: n/a Counseling and Coordination: n/a Patricia Chappell MD - 08/18/2014 6:46 AM PST Urology Progress Note Hospital Day: 1 Author: PATRICIA PATTERSON MD Attending Physician: Theresa Beyer MD Patient: COREEN ALDANA [facility] [id number] 24H events/Subjective: Tachycardic overnight asymptomatic otherwise >> [...] is Theresa Beyer MD. PATRICIA PATTERSON MD [facility] [address] [place], [place] [address] Zay Sherman MD - 08/17/2014 10:44 AM PST [facility] PRE-OPERATIVE HISTORY & PHYSICAL EXAM CHIEF [...] Resident - R5 Department of Urology Pager #[phone] documented in this encounter Plan of Treatment [...] | | | | | | [place] [address] | | | | | | [phone] | | | | | | | [...] | | | | | | [place] [address] | | | | | | [phone] | | | | | | | [...] [facility] | [address] | [place] [address] | | | SERVICES, CORE | [address]ARK [...] | + + + + + | [facility] | [address] | [place] [address] | | | KAVITA, CAM | [address] | | | + + + + + MAGNESIUM, PLASMA (08/22/2014 5:50 AM PST) + +-------+ + + + | Component | Value | Ref Range | Performed | Pathologist | | | | | At | Signature | + +-------+ + + + | MAGNESIUM,P | 2.0 | 1.8 - 2.5 mg/dL | [facility] | | | LASMA | | | [...] | + + + + + | [facility] | [address] | [place] [address] | | | SERVICES, CORE | [address] [...] | | | LABORATORY | | | SAMOAN | | | SERVICES, | | | [...] [facility] | [address] | [place] [address] | | | SERVICES, CORE | PARK [...] [facility] | [address] | [place] [address] | | | SERVICES, CORE | [address]LLEN [...] | + + + + + | [facility] | [address] | [place] [address] | | | SERVICES, CORE | PARK [...] | + + + + + | [facility] | [address] | [place] [address] | | | SERVICES, CORE | ELLEN [...] | | | LABORATORY | | | SAMOAN | | | SERVICES, | | | [...] [facility] | [address] | [place] [address] | | | SERVICES, CORE | PARK [...] [facility] | [address] | [place] [address] | | | SERVICES, CORE | PARK [...] | + + + + + | [facility] | [address] | [place] [address] | | | SERVICES, CORE | PARK [...] | + + + + + | [facility] | [address] | [place] [address] | | | CAM WALLS | PARK [...] | | | LABORATORY | | | SAMOAN | | | SERVICES, | | | [...] | + + + + + | [facility] | [address] | [place] [address] | | | SERVICES, CORE | PARK [...] [facility] | [address] | [place] [address] | | | SERVICES, CORE | PARK [...] | | | LABORATORY | | | SAMOAN | | | SERVICES, | | | [...] the MDRD equation recommended by the | [facility] | | National Kidney Disease [...] | + + + + + | [facility] | [address] | [place] [address] | | | KAVITA, CAM | [address]LLEN [...] | + + + + + | [facility] | [address] | [place] [address] | | | SERVICES, CORE | PARK [...] | + + + + + | [facility] [employer] | [address] | [place] [address] | | | SERVICES, CORE | [address]LLEN [...] [facility] | [address] | [place] [address] | | | SERVICES, CORE | PARK [...] | + + + + + | [employer] | [address] | [place] [address] | | | SERVICES, CORE | [address]LLEN [...] [facility] | [address] | [place] [address] | | | CAM WALLS | PARK [...] | | | LABORATORY | | | SAMOAN | | | SERVICES, | | | [...] | + + + + + | [facility] | [address] | [place] [address] | | | SERVICES, CORE | ELLEN [...] [facility] | [address] | [place] [address] | | | SERVICES, CORE | PARK [...] [facility] | [address] | [place] [address] | | | SERVICES, CORE | PARK [...] | | | LABORATORY | | | SAMOAN | | | SERVICES, | | | [...] | + + + + + | [facility] | [address] | [place] [address] | | | SERVICES, CAM | [address]LLEN [...] [facility] | [address] | [place] [address] | | | SERVICES, CORE | ELLEN [...] + | [facility] | [address] [facility] | [place], [place] | | | CARDIOLOGY | [address] | [address] | | + + + + + [...] GONZALEZ | [address] | [place], [place] | | | ARUN BALBUENA OF RICKIE | [facility] | [address] | | | TESTS | | | [...] MARD[facility] | [address] | [place], [place] | | | MATTHEW BALBUENA RICKIE | [facility] | [address] | | | TESTS | | | [...] - [facility] | [address] | [place], [place] | | | SREE POINT OF CARE | [address] | [address] | | | TESTS | | | [...] GONZALEZ | [address] | [place], [place] | | | SREE POINT OF [facility] | [address] | [address] | | | TESTS | | | [...] [facility] | [address] | [place], [place] | | | ARUN BALBUENA OF CARE | [address] | [address] | | | TESTS | | | [...] - [facility] | [address] | [place], [place] | | | ARUN BALBUENA OF CARE | [address] | [address] | | | TESTS | | | [...] GONZALEZ | [address] | [place], [place] | | | SREE POINT OF CARE | [address] | [address] | | | TESTS | | | [...] + + + + | [facility] | [address] | [place], [place] | | | [place] POINT OF CARE | [address] | [address] | | | TESTS | | | [...] | | | | | outside sales account representative adrenal | | | | | | to massA4-6, | | | | | | outside sales account representative | | | | | | [...] | + + + + + | [facility] | [address] | [place] [address] | | | PATHOLOGY | [address] [...]
--- OUTSIDE RECORDS SUMMARY | ~2019-07-17 | XMS | Encounter Summary ---
Demographics + + + | Address | [address] | | | [place] [address] | + + + | Home Phone [...] Author + + + | Author | [facility] | + + + | Organization | [facility] | + + + | Address | Unknown | + + + | Phone | Unavailable | + + + Support + + + + + | Name | Relationship | Address | Phone | + + + + + | Yennifer Batista | ECON | [address] | | | | | [place] | | | | | [address] | | + + + + + Care Team Providers + +------+ + | Care Knock Up Assembler Name | Role | Phone | + +------+ + | Sujatha Sullivan | PCP | | | SPA DIRECTOR/FINANCE | | | + +------+ + Reason [...] | | | cardiovascul | PA-C [address] | | | | | ar exam | [address] | Mailcode: | | | | | Arrhythmia | [place], | [address] | | | | | NSVT | [place] | [address] | | | | | (nonsustaine | [address] | Building | | | | | d | Phone: | [place], [place] | | | | | ventricular | [phone] | [address] | | | | | tachycardia) | Fax: | Phone: | | | | | (HCC) | [phone] | [phone] | | | | | Procedures | [...] | | | | | Arrhythmia | [place], | Arrhythmia Ep | | | | | COHEN | PA-C [address] | [address] | | | | | (dyspnea on | [address] | [address] | | | | | exertion) | [place], | Mailcode: | | | | | NSVT | [place] | [facility] | | | | | (nonsustaine | [address] | for Health | | | | | d | Phone: | and Healing, | | | | | ventricular | [phone] | Building 1, | | | | | tachycardia) | Fax: | 7th Floor | | | | | (HCC) | [phone] | [place], [place] | | | | | Procedures | | [address] | | | | | CONSULT TO | | Phone: | | | | | CARDIOLOGY | | [phone] | | | | | | | Fax: | | | | | | | [phone] | +--------+--------+ + + + + Diagnostic [...] | | | cardiovascul | PA-C [address] | | | | | ar exam | [address] | Mailcode: | | | | | Arrhythmia | [place], | [address] | | | | | [place] (dyspnea | [place] | [address] [place] | | | | | on | [address] | Building | | | | | exertion) | Phone: | [place], [place] | | | | | Procedures | [phone] | [address] | | | | | STRESS | Fax: | Phone: | | | | | ECHOCARDIOGR | [phone] | [phone] | | | | | AM, CONVERT [...] | 2013 | Visit | Preventive at [facility] | [address] | exam (Primary Dx); | | | | [address] | [address] [place], | Arrhythmia; [place] | | | | Mailcode: CH9A | [place] [address] | (dyspnea on | | | | [place] [facility] | [phone] | exertion); NSVT | | | | and Healing, | | (nonsustained | | | | Building 1 | | ventricular | | | | [place], [place] | | tachycardia) (HCC) | | | | [address] | | | | | | [phone] | | | +--------+---------+ + + + [...] and cardiac test results from admission to [facility] in 2009 Schedule exercise echocardiogram 50 [...] beta-gabbi. Will also get resting echo to luis m pollack define and rule out structural disease. Start [...] 1 Rate of cardiac , non fatal MS, non fatal cardiac arrest 0 risk factors - 0.4% (very low) 1 risk factors - 0.9% (low) 2 risk factors - 6.6%, (moderate) 3 or >risk factors - 11% (high Final Preoperative Recommendations: Records reviewed from [facility] from admission on 12/17/2010-12/19/2010 for chest pain. Patient ruled out. Had history of chronic alcoholism, GERD and esophageal erosions. Ot her admission was on 02/03/2011-02/05/2011 for grand-mal seizure from snorting Wellbutrin and alcohol withdrawal. No evidence of prior MS or CAD by records or by recent [...] "irratic heartbeat". Reports he went to hospital ([facility])for 4 days - did tests but [...] Relation Anesthesia Neg Hx Heart Disease Father MS age 40's History Substance Use Topics Smoking [...] 0.72 03/21/2014 GLU 81 03/21/2014 [facility] - Sinus rhythm with sinus arrhytmia. HR [...] 1 Rate of cardiac , non fatal MS, non fatal cardiac arrest 0 risk factors [...] y.o. male with history of Irregular Heartbeat (1989's per patient), Left Adrenal mass who is referred by Sujatha HUBER for cardiac evaluation and risk assessment for OPEN ADRENALECTOMY on 07/03/2014. he has vague history of possible MS by patient report, undergoing Intermediate risk surgery, with good reported exercise toleranc e but with COHEN with sustained effort..History more suggestive of atrial fibrillation, but po ssible he could have had MS. On no cardiac medications at this point. Given that he is such a vague historian, with no source records to confirm history, I would consider stress testin g. No further symptoms of palpitations, but could have occult PAF. Will need all progress notes and cardiac test results from admission to [facility] in 2009 Schedule exercise echocardiogram 48 [...] [address] Mailcode: UHN62 [facility] [place] [phone] documented in t his encounter Plan of Treatment +--------+ + + [...] | | | | | | [place] [address] | | | | | | [phone] | | | | | | | [...] | | | | | | [place] [address] | | | | | | [phone] | | | | | | | | +--------+ + + + + + +------+--------+ + + | Name | [...] + | [facility] | [address] | [place], [place] | | | CARDIOLOGY | [address] | [address] | | + + + + + [...]
--- OUTSIDE RECORDS SUMMARY | ~2019-07-17 | XMS | Encounter Summary ---
Demographics + + + | Address | [address] | | | [place] [address] | + + + | Home Phone [...] [facility] | + + + | Organization | [facility] | + + + | Address | Unknown | + + + | Phone | Unavailable | + + + Support + + + + + | Name | Relationship | Address | Phone | + + + + + | Yennifer Batista | ECON | [address] | | | | | [place] | | | | | [address] | | + + + + + Care Team Providers + +------+ + | Care Fermentation Engineer Name | Role | Phone | [...] | | | [address] | [place], [place] | | | | | Mailcode: UHN83 | [address] | | | | | [address] | [phone] | | | | | [address] [place], [place] | | | | | | [address] | Julian Obregon, | | | | | [phone] | DO [address] | | | | | | [address] | | | | | | [place], [place] | | | | | | [address] | | | | | | [phone] | | | | | | | [...] | | | | | | [place] [address] | | | | | | [phone] | | | | | | | [...] | | | | | | [place] [address] | | | | | | [phone] | | | | | | | [...]
--- OUTSIDE RECORDS SUMMARY | ~2019-07-17 | XMS | Encounter Summary ---
Demographics + + + | Address | [address] | | | [place] [address] | + + + | Home Phone [...] + + | Author | [facility] | + + + | Organization | [facility] [employer] [facility] | + + + | Address | Unknown | + + + | Phone | Unavailable | + + + Support + + + + + | Name | Relationship | Address | Phone | + + + + + | Yennifer Batista | ECON | [address] | | | | | [place] | | | | | [address] | | + + + + + Care Team Providers + +------+ + | Care Gas Distribution Plant Operator Name | Role | Phone | + +------+ + | Ed Landis MD PCP | | + +------+ + Encounter Details +--------+ + + + + | Date | Type | Department | Care Team | Description | +--------+ + + + + | 06/02/ | Pharmacy | Health | | | | 2013 | Visit | [facility] | | | | | | [address] | | | | | | Mailcode: [place] | | | | | | [facility] Health and | | | | | | Healing, Building [address] | | | | | | [place], [place] | | | | | | [address] | | | | | | [phone] | | | +--------+ + + + [...] | | | | | | [place] [address] | | | | | | [phone] | | | | | | | [...] | | | | | | [place] [address] | | | | | | [phone] | | | | | | | | +--------+ + + + + documented as of this encounter Visit Diagnoses Not on filedocumented in this encounter"
--- OUTSIDE RECORDS SUMMARY | ~2019-07-17 | XMS | Encounter Summary ---
Demographics + + + | Address | [address] | | | [place] [address] | + + + | Home Phone [...] Author + + + | Author | [facility] | + + + | Organization | [facility] | + + + | Address | Unknown | + + + | Phone | Unavailable | + + + Support + + + + + | Name | Relationship | Address | Phone | + + + + + | Yennifer Batista | ECON | [address] | | | | | [place] | | | | | [address] | | + + + + + Care Team Providers + +------+ + | Care Keno Manager Name | Role | Phone | [...] Pharmacy | | | | | | [address] | | | | | | [place] | | | | | | [address] | | | | | | [phone] | | | +--------+ + + + [...] | | | | | Shania Marinelli [place], | | | | | | [place] [address] | | | | | | [phone] | | | | | | | [...] | | | | | Shania Marinelli [place], | | | | | | [place] [address] | | | | | | [phone] | | | | | | | | +--------+ + + + + documented as of this encounter Visit Diagnoses Not on filedocumented in this encounter"
--- OUTSIDE RECORDS SUMMARY | ~2019-07-17 | XMS | Encounter Summary ---
Demographics + + + | Address | [address] | | | [place] [address] | + + + | Home Phone [...] + | Author | [facility] | + + + | Organization | [facility] [facility] | + + + | Address | Unknown | + + + | Phone | Unavailable | + + + Support + + + + + | Name | Relationship | Address | Phone | + + + + + | Yennifer Batista | ECON | [address] | | | | | [place] | | | | | [address] | | + + + + + Care Team Providers + +------+ + | Care Artillery Or Naval Gunfire Observer Name | Role | Phone | + [...] | | | | period | [place] [address] | [address] Phone: | | | | | | Phone: | [phone] | | | | | | [phone] | Fax: | | | | | | Fax: | [phone] | | | | | | [phone] | | +--------+--------+ + + + + Encounter Details +--------+---------+ + + + | Date | Type | Department | Care Team | Description | +--------+---------+ + + + | 09/01/ | Office | Urology at [facility] | Theresa Beyer, | Adrenal mass (HCC) | | 2014 | Visit | [address] | [address] | (Primary Dx) | | | | Mailcode: CH10U | [place] [address] | | | | | [facility] | [phone] | | | | | and [place], | | | | | | Building | | | | | | Floor [place], [place] | | | | | | [address] | | | | | | [phone] | | | +--------+---------+ + + + [...] from all bl ack inked margins. Submitted: Applied Research Director The tumor is sampled for the Bio Marker study and the BioLibrary. Cassette Index: A1-3, independent sales representative adrenal to mass A4-6, independent sales representative intracapsular mass AMJ:tp My electronic signature indicates that I have personally reviewed al l diagnostic slides, the gross and/or microscopic portion of this report and formulated the final diagnosis. Rendering Diagnostician: Juanjo Covington M.D. Pathologist Electronically Signed 08/22/2014 4:58PM GLUCOSE, PLASMA (LAB) 08/18/2014 85 BUN, PLASMA (LAB) 08/18/2014 10 CREATININE PLASMA (LAB) 08/18/2014 0.80 EGFR - [place] 08/18/2014 >60 EGFR NON -[place] 08/18/2014 >60 SODIUM, PLASMA (LAB) 08/18/2014 140 [...] CREATININE PLASMA (LAB) 08/17/2014 0.89 EGFR - [place] 08/17/2014 >60 EGFR NON -[place] 08/17/2014 >60 SODIUM, PLASMA (LAB) 08/17/2014 139 [...] CREATININE PLASMA (LAB) 08/19/2014 0.72 EGFR - [place] 08/19/2014 >60 EGFR NON -[place] 08/19/2014 >60 SODIUM, PLASMA (LAB) 08/19/2014 136 [...] CREATININE PLASMA (LAB) 08/20/2014 0.63* EGFR - [place] 08/20/2014 >60 EGFR NON -[place] 08/20/2014 >60 SODIUM, PLASMA (LAB) 08/20/2014 134* [...] CREATININE PLASMA (LAB) 08/21/2014 0.57* EGFR - [place] 08/21/2014 >60 EGFR NON -[place] 08/21/2014 >60 SODIUM, PLASMA (LAB) 08/21/2014 133* [...] CREATININE PLASMA (LAB) 08/22/2014 0.66* EGFR - [place] 08/22/2014 >60 EGFR NON -[place] 08/22/2014 >60 SODIUM, PLASMA (LAB) 08/22/2014 139 [...] BEYER MD UROLOGY ONCOLOGY [address] Mail Code: Ch10u [facility], [address] [facility] [address] documented in this en counter [...] | | | | | Shania [place], | | | | | | [place] [address] | | | | | | [phone] | | | | | | | [...] | | | | | Shania [place], | | | | | | [place] [address] | | | | | | [phone] | | | | | | | | +--------+ + + + + documented as of this encounter Visit Diagnoses + + | Diagnosis | + + | 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
--- OUTSIDE RECORDS SUMMARY | ~2019-07-17 | XMS | Encounter Summary ---
Demographics + + + | Address | [address] | | | [place] [address] | + + + | Home Phone | | + + + | Preferred Language | Unknown | + + + | Marital Status | Single | + + + | Synagogue Affiliation | ZEFERINO | + + + | Race | or | + + + | Ethnic Group | Not or | + + + Author + + + | Author | [facility] | + + + | Organization | [facility] [employer] [facility] | + + + | Address | Unknown | + + + | Phone | Unavailable | + + + Support + + + + + | Name | Relationship | Address | Phone | + + + + + | Yennifer Batista | ECON | [address] | | | | | [place] | | | | | [address] | | + + + + + Care Team Providers + +------+ + | Care Candy Packer Name | Role | Phone | [...] | | | | CONSULT TO | [place], [place] | [facility] | | | | | GI | [address] | for Health | | | | | PROCEDURE | Phone: | and Healing, | | | | | UNIT: EGD | [phone] | Building 2 | | | | | IN UPPER GI | Fax: | [place], [place] | | | | | ENDOSCOPY,BI | [phone] | [address] | | | | | OPSY | | Phone: | | | | | | | [phone] | | | | | | | Fax: | | | | | | | [phone] | +--------+--------+ + + + + Reason [...] + + | 09/17/ | Hospital | [facility] GI PROCEDURE | Ricardo Mason MD | | | 2017 | Encounter | [address] | [address] | | | | | Ave Mailcode: [facility] | [place], [place] | | | | | [facility] | [address] | | | | | Health and Healing, | [phone] | | | | | [place] [address] | | | | | | [place], [place] | | | | | | [address] | | | | | | [phone] | | | +--------+ + + + [...] Discharge Instructions Instructions Stefanie Tipton RN - 09/17/2016[place] Care Instructions after EGD (Upper Endo scopy) [...] hours or on weekends and holiday Hospital Production Quality Analyst toll free [phone] and have the GI doctor supervisor functional testing paged. The provider who performed your procedure [...] be sent through Care Everywhere.BLAND SOFT DIET (BARBADIAN)documented in this encounter Medications at Time of [...] 4:27 PM PST PRE PROCEDURE NOTE: MR# [id number] Subjective: Franck Batista is a 56 y.o. [...] | | | | | | [place] [address] | | | | | | [phone] | | | | | | | [...] | | | | | | [place] [address] | | | | | | [phone] | | | | | | | [...] -------+ | MRN: | [id number] | | [id number] Date: 09/17/2016Patient Name: Order #: [id number] | ENDOSC OPY | | of : 1960CSN: [id number]: [facility] 2Procedure: | | | Upper GI [...] The Olympus [id number] Gastroscope | | | #[id number] was introduced through the | | | [...]
--- OUTSIDE RECORDS SUMMARY | ~2019-07-17 | XMS | Encounter Summary ---
Demographics + + + | Address | [address] | | | [place] [address] | + + + | Home Phone [...] Author + + + | Author | [facility] | + + + | Organization | [facility] | + + + | Address | Unknown | + + + | Phone | Unavailable | + + + Support + + + + + | Name | Relationship | Address | Phone | + + + + + | Yennifer Batista | ECON | [address] | | | | | [place] | | | | | [address] | | + + + + + Care Team Providers + +------+ + | Care Silk Soaker Name | Role | Phone | + [...] 2010 | Only | E The | [phone] | | | | | [place] | | | | | | [address] | | | +--------+ + + + [...] | | | | | | [place] [address] | | | | | | [phone] | | | | | | | [...] | | | | | | [place] [address] | | | | | | [phone] | | | | | | | | +--------+ + + + + documented as of this encounter Procedures + +--------+ + + + | Procedure Name | Priori | Date/Time | Associated Diagnosis | Comments | | | ty | | | | + +--------+ + + + | CHEST 2 VIEW [id number] | Routin | 07/10/2011 | | Results for this | | | e | 1:30 PM | | procedure are in the | | | | PST | | results section. | + +--------+ + + + documented in this encounter Results CHEST 2 VIEW [id number] (07/10/2011 1:30 PM PST) + + | [...]
--- OUTSIDE RECORDS SUMMARY | ~2019-07-17 | XMS | Encounter Summary ---
Demographics + + + | Address | [address] | | | [place] [address] | + + + | Home Phone [...] + | Author | [facility] | + + + | Organization | [facility] | + + + | Address | Unknown | + + + | Phone | Unavailable | + + + Support + + + + + | Name | Relationship | Address | Phone | + + + + + | Yennifer Batista | ECON | [address] | | | | | [place] | | | | | [address] | | + + + + + Care Team Providers + +------+ + | Care Turnaround Planner Name | Role | Phone | [...] Esophageal | Frederic L, | Ch[address] | | | | | stricture | MD,MPH [address] | | | | | Procedures | N | Mailcode: | | | | | CONSULT TO | [address] | [facility] | | | | | GI PROCEDURE | Ave | for Health | | | | | UNIT: EGD | [place], [place] | and Healing, | | | | | [place] UPPER GI | [address] | Building 2 | | | | | ENDOSCOPY,BI | Phone: | [place], [place] | | | | | OPSY [place] UP | [phone] | [address] | | | | | GI | Fax: | Phone: | | | | | ENDOSCOPY,BA | [phone] | [phone] | | | | | LL DIL,30MM | | Fax: | | | | | [place] UPPER GI | | [phone] | | | | | | | | | | | | ENDOSCOPY,LI | | | | | | | GAT VARIX | | | +--------+--------+ + + + + Encounter Details +--------+ + + + + | Date | Type | Department | Care Team | Description | +--------+ + + + + | 08/11/ | Micro Photographer | Digestive Health | Frederic Kohler | Esophageal stricture | | 2017 | | [facility] at [facility] [address] | MD Kies[address]MPH [address] | (Primary Dx) | | | | [address] | [address] | | | | | Mailcode: OC8D | [place] [address] | | | | | [facility] | [phone] | | | | | and Healing, | | | | | | Building [address] | | | | | | [place], [place] | | | | | | [address] | | | | | | [phone] | | | +--------+ + + + [...] | | | | | | [place] [address] | | | | | | [phone] | | | | | | | [...] | | | | | | [place] [address] | | | | | | [phone] | | | | | | | | +--------+ + + + + documented as of this encounter Visit Diagnoses + + | Diagnosis | + + | Esophageal stricture - Primary Stricture and stenosis of esophagus | + + documented in this encounter"
--- OUTSIDE RECORDS SUMMARY | ~2019-07-17 | XMS | Encounter Summary ---
Demographics + + + | Address | [address] | | | [place] [address] | + + + | Home Phone [...] Author + + + | Author | [facility] | + + + | Organization | [facility] | + + + | Address | Unknown | + + + | Phone | Unavailable | + + + Support + + + + + | Name | Relationship | Address | Phone | + + + + + | Yennifer Batista | ECON | [address] | | | | | [place] | | | | | [address] | | + + + + + Care Team Providers + +------+ + | Care Geophysical Laboratory Supervisor Name | Role | Phone | [...] 2010 | Only | E The | [phone] | | | | | [place] | | | | | | [address] | | | +--------+ + + + [...] | | | | | | [place] [address] | | | | | | [phone] | | | | | | | [...] | | | | | | [place] [address] | | | | | | [phone] | | | | | | | | +--------+ + + + + documented as of this encounter Procedures + +--------+ + + + | Procedure Name | Priori | Date/Time | Associated Diagnosis | Comments | | | ty | | | | + +--------+ + + + | CHEST 2 VIEW [id number] | Routin | 07/10/2011 | | Results for this | | | e | 1:30 PM | | procedure are in the | | | | PST | | results section. | + +--------+ + + + documented in this encounter Results CHEST 2 VIEW [id number] (07/10/2011 1:30 PM PST) + + | [...]
--- OUTSIDE RECORDS SUMMARY | ~2019-07-17 | XMS | Encounter Summary ---
Demographics + + + | Address | [address] | | | [place] [address] | + + + | Home Phone [...] + + + | Author | [facility] | + + + | Organization | [facility] [employer] [facility] | + + + | Address | Unknown | + + + | Phone | Unavailable | + + + Support + + + + + | Name | Relationship | Address | Phone | + + + + + | Yennifer Batista | ECON | [address] | | | | | [place] | | | | | [address] | | + + + + + Care Team Providers + +------+ + | Care Health Professional Name | Role | Phone | + +------+ + | Sujatha Sullivan PCP | | | CLINICAL OPERATIONS CONSULTANT | | | + +------+ + [...] | | 2014 | | Preventive at [facility] | [address] | (Periorperative risk | | | | [address] | [address] [place], | ) | | | | Mailcode: [facility] | [place] [address] | | | | | [facility] | [phone] | | | | | and [place], | | | | | | Building [address] | | | | | | [place], [place] | | | | | | [address] | | | | | | [phone] | | | +--------+ + + + [...] 2019 | Encounter | | [address] | | | | | | [place], | | | | | | [place] [address] | | | | | | [phone] | | | | | | | [...] | | | | | Shania Marinelli [place], | | | | | | [place] [address] | | | | | | [phone] | | | | | | | | +--------+ + + + + documented as of this encounter Visit Diagnoses Not on filedocumented in this encounter"
--- OUTSIDE RECORDS SUMMARY | ~2019-07-17 | XMS | Encounter Summary ---
Demographics + + + | Address | [address] | | | [place] [address] | + + + | Home Phone | | + + + | Preferred Language | Unknown | + + + | Marital Status | Single | + + + | Amish Affiliation | ZEFERINO | + + + | Race | or | + + + | Ethnic Group | Not or | + + + Author + + + | Author | [facility] | + + + | Organization | [facility] | + + + | Address | Unknown | + + + | Phone | Unavailable | + + + Support + + + + + | Name | Relationship | Address | Phone | + + + + + | Yennifer Batista | ECON | [address] | | | | | [place] | | | | | [address] | | + + + + + Care Team Providers + +------+ + | Care Certified Mortician Name | Role | Phone | + [...] Pharmacy | | | | | | [address] | | | | | | [place], [place] | | | | | | [address] | | | | | | [phone] | | | +--------+ + + + [...] | | | | | Shania Marinelli [place], | | | | | | [place] [address] | | | | | | [phone] | | | | | | | [...] | | | | | Shania Marinelli [place], | | | | | | [place] [address] | | | | | | [phone] | | | | | | | | +--------+ + + + + documented as of this encounter Visit Diagnoses Not on filedocumented in this encounter"
--- OUTSIDE RECORDS SUMMARY | ~2019-07-17 | XMS | Encounter Summary ---
Demographics + + + | Address | [address] | | | [place] [address] | + + + | Home Phone [...] Author + + + | Author | [facility] [employer] [facility] | + + + | Organization | [facility] [employer] [facility] | + + + | Address | Unknown | + + + | Phone | Unavailable | + + + Support + + + + + | Name | Relationship | Address | Phone | + + + + + | Yennifer Segovia | ECON | [address] | | | | | [place] | | | | | [address] | | + + + + + Care Team Providers + +------+ + | Care Fisher Seal Name | Role | Phone | + [...] JOCELYN Byers | | | | | [place] | [address] [place], | | | [birth year] | | [address] | [place] [address] | | | 2017 | | [phone] | [phone] | | | | | | | [...] eventual ly enteric nutrition. Steve Martin MD [facility] DEPARTMENT OF SURGERY EMERGENCY GENERAL SURGERY Division [...] 14cm adrenal myelolipoma. He originally presented to [facility] in [place], [place] with a week of worsening abdominal [...] artery syndrome. Mr Segovia was transferred to [facility] on 07/22 for further cares. On arrival [...] CA19-9 further malignancy workup was performed: a [facility] CT showed nonspecific small pulmonary nodules, most [...] kg/(m^2). Medications: Coreen Segovia Home Medication Instructions DARLIN:[id number] Printed on:08/01/16 7435 Medication Information acetaminophen 325 mg oral tablet [...] that I, or Nurse Practitioner or Physician Ophthalmic Surgeon working with me, had a face to face encounter with this patient on 08/01/2016 On behalf of Attending Physician: Mary Her MD I am ordering and certify that the following services are medically necessary [facility] Residential Evaluate and Treat I am ordering and certify that the following services are medically necessary [facility] Physical Therapy Evaluate and Treat I certify that the patient is homebound based on the following clinical findings Post-hospi jocelyn weakness, decreased strength and endurance, and tires easily with minimal exertion Other Discharge Orders and Instructions ACUTE CARE SURGERY/ EMERGENCY GENERAL SURGERY CLINIC FOLLOW UP Location: Physician [address]. [address] [facility] located on the [facility] campus across from the Hospital PAIN medications [...] resource once you are discharged. Call the [facility] u.s. representative for questions or concerns related to [...] up with Trauma Emergency General Surgery at [facility]. Go on 08/11/2016. Specialty: Trauma Center Contact information [address] Mailcode: L223a [facility] [address] [place] [address] Additional information: [facility] 2nd floor [address]. The [facility]'s [facility] is the building just past [facility]. Turn r ight immediately past the Pavilion. The entrance to the garage will be on your right just be yond the main entrance to the Pavilion. Yarn Preparation Supervisor parking is available in the Physician's Pavili [...] Medical Student Follow-Up Note Date: 08/01/2016 Author: Fiana Amaya MS4 IMPRESSION/PLAN: Lester Juárez is a [...] fellow with any questions. Faina Amaya, MS4 [facility] Pager: [phone] INTERVAL HISTORY: -- Received 1 unit pRBCs [...] questions. Gege Mcrae MD Gastroenterology Fellow Pager [phone] INTERVAL HISTORY: - EGD with dilation of [...] - 200 ng/mL 3 (L) Travis Benson MD - 07/20 1:35 PM PST Pre Sedation Endoscopy Note: MR# [id number] Subjective: Coreen Segovia is a 55 y.o. [...] addressed. Consent obtained. See procedure note 07/31/2016 Mike, Zay Ross MD - 07/20 12:39 PM PST EGS Inpatient Daily Progress Note: Author: Zay Espinoza MD Attending Physician: Steve Martin MD Primary Care Provider: Ed Landis MD Note Date: 07/31/2016 Admission Date: 07/22/2016 COREEN SEGOVIA, [id number] Hospital Day #9 Procedures: 07/29: EGD, colonoscopy [...] Zay Espinoza MD Emergency General Surgery PGY1 [id number] Paola Andres 07/31/2016 8:26 AM PST Gastroenterology Medical Student Follow-Up Note Date: 07/31/2016 Author: Faina Amaya, MS4 IMPRESSION/PLAN: Lester Juárez is a 55 [...] fellow with any questions. Faina Monique, MS4 [facility] Pager: [phone] INTERVAL HISTORY: -- Esophageal biopsy negative for [...] followup noncontrast chest CT suggested. Travis Benson MD - 7 5:01 PM PST Gastroenterology Follow-Up Note IMPRESSION/PLAN: [...] Date: 07/30/2016 Admission Date: 07/22/2016 COREEN SEGOVIA, [id number] Hospital Day #8 Procedures: 07/29: EGD, colonoscopy [...] Zay Espinoza MD Emergency General Surgery PGY1 [id number] Associated attestation - Steve Martin MD - 07/30/2016 4:56 PM PST ATTENDING ADDENDUM: I saw, examined, and evaluated the patient. I agree with the findings and the plan of care as documented in the resident's/fellow s note, with additions/edits made to the note to r eflect my findings and clinical impression. Steve Martin MD [facility] [address] [place] [address] Daniel Sanchez MD - 07/29/2016 5:28 PM [...] l ater this week. D/W Dr Cuevas. evinh Paola calvillo - 07/29/2016 8:22 AM PST [...] fellow with any questions. Faina Amaya, MS4 [facility] Pager: [phone] Lester Coreen is a 55 year-old male with a [...] No new studies Justin Silva MD - 0 07/29/2016 8:00 AM PST EGS Inpatient Daily Progress Note: Author: Justin Cuevas MD Attending Physician: Abdulaziz Redding MD Primary Care Provider: Ed Landis MD Note Date: 07/29/2016 Admission Date: 07/22/2016 COREEN SEGOVIA, [id number] Hospital Day #7 Subjective: GoLytely prep overnight, [...] Justin Cuevas M.D. Plastic Surgery Resident Pager [phone] aith, Justin Anderson MD - 07/28/2016 6:16 AM PST EGS Inpatient Daily Progress Note: Author: Justin Cuevas MD Attending Physician: Abdulaziz Redding MD Primary Care Provider: Ed Landis MD Note Date: 07/28/2016 Admission Date: 07/22/2016 COREEN SEGOVIA, [id number] Hospital Day #6 Subjective: No overnight events [...] Justin Cuevas M.D. Plastic Surgery Resident Pager [phone] Shira, Justin Anderson MD - 07/27/2016 8:52 AM PST EGS Inpatient Daily Progress Note: Author: Justin Cuevas MD Attending Physician: Abdulaziz Redding MD Primary Care Provider: Ed Landis MD Note Date: 07/27/2016 Admission Date: 07/22/2016 COREEN SEGOVIA, [id number] Hospital Day #5 Subjective: No overnight events [...] Justin Cuevas M.D. Plastic Surgery Resident Pager [phone] Justin Silva MD - 07/26/2016 12:16 PM PST EGS Inpatient Daily Progress Note: Author: Justin Cuevas MD Attending Physician: Abdulaziz Redding MD Primary Care Provider: Ed Landis MD Note Date: 07/26/2016 Admission Date: 07/22/2016 COREEN SEGOVIA, [id number] Hospital Day #4 Subjective: No overnight events [...] and TPN initiated 07/23.DHT placed 07/25, rodrigo bourgeois fell out shortly after placement. Will re-consult radiology to advance today. 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 Bowel regimen PRN, Nausea regimen PRN Renal: No active issues. Heme/ID: Hemodynamically stable. No indication for abx at this time Endo: No current issues PPX: lovenox Justin Cuevas M.D. Plastic Surgery Resident Pager [phone] Justin Silva MD - 07/25/2016 6:06 AM PST EGS Inpatient Daily Progress Note: Author: Justin Cuevas MD Attending Physician: Abdulaziz Redding MD Primary Care Provider: Ed Landis MD Note Date: 07/25/2016 Admission Date: 07/22/2016 COREEN SEGOVIA, [id number] Hospital Day #3 Subjective: No overnight events [...] Justin Cuevas M.D. Plastic Surgery Resident Pager [phone] Justin Silva MD - 07/24/2016 8:00 AM PST EGS Inpatient Daily Progress Note: Author: Justin Cuevas MD Attending Physician: Abdulaziz Redding MD Primary Care Provider: Ed Landis MD Note Date: 07/24/2016 Admission Date: 07/22/2016 COREEN SEGOVIA, [id number] Hospital Day #2 Subjective: No overnight events [...] Justin Cuevas M.D. Plastic Surgery Resident Pager [phone] ustin Cuevas MD - 07/23/2016 10:39 AM PST Plastic Surgery Inpatient Daily Progress Note: Author: Justin Cuevas MD Attending Physician: Abdulaziz Redding MD Primary Care Provider: Ed Landis MD Note Date: 07/23/2016 Admission Date: 07/22/2016 COREEN SEGOVIA, [id number] Hospital Day #1 Subjective: No overnight events [...] Justin Cuevas M.D. Plastic Surgery Resident Pager [phone] documented in this encounter Plan of Treatment [...] | | | | | | [place] [address] | | | | | | [phone] | | | | | | | [...] | | | | | | [place] [address] | | | | | | [phone] | | | | | | | [...] | | | Erica, | | | Travis, | | | MD - | | | 07/28/ | | [...] | | | Bakis. | | | [place] | | | Erica, | | | [...] | | | y | | | 08/17/ | | | 7 who | | [...] | | d in | | | 2001. | | | He | | | [...] | | | whawk | | | [place] | | | | | | Health [...] | | | am | | | // | | | 2014 - | | [...] | | | r | | | (06/07 | | | /2013) | | | [...] 1556 | | | | | | 01/07/ | | | 17 | | | 0416 | | | | | | 01/08/ | | | 17 | | | 0529 | | | | | | 01/08/ | | | 17 | | | 1514 | | | | | | 01/08/ | | | 17 | | | 2346 | | | 01/09/ | | | 17 | | | 0546 | | | 01/09/ | | | 17 | | | [...] | | | 0.99 | | | 01/16/ | | | 2015 | | | [...] | | | s | | | marinator | | | ior to | | [...] KUB | | | | | | (07/23/ | | | 7): | | | [...] | | nt of | | | Negroitz | | | . | +---+--------+ + [...] Final/Electronically | | | | | | alana / MILTON | | | | | [...] [facility] | [address] | [place] [address] | | | SERVICES, CORE | PARK [...] | + + + + + | [facility] | [address] | [place] [address] | | | SERVICES, CORE | SHANIA [...] Final/Electronically | | | | | | alana / DALILA | | | | | [...] + + | [facility] | [address] | [place] [address] | | | SERVICES, | [address] [...] LABORATORY | [address] | [place] [address] | | | SERVICES, | [address] [...] + + + + | PRODUCT | [id number] | | [facility] | | | UNIT [...] + + + + | EXPIRATION | [id number] | | [facility] | | | DATE [...] + + + + | BLOOD | [id number] | | [facility] | | | PRODUCT [...] [facility] | [address] | [place] [address] | | | SERVICES, | [address] | | | | TRANSFUSION MEDICINE [...] reference ranges effective June 04, 2016. | [facility] | | | LABORATORY | | | [place] | + + + + + + + + | Performing | Address | City/State/Zipcode | Phone Number | | Organization | | | | + + + + + | [facility] | [address] | [place] [address] | | | [place] | SHANIA [...] [facility] | [address] | [place] [address] | | | SERVICES, CORE | SHANIA [...] | | | LABORATORY | | | BELARUSIAN | | | SERVICES, | | | [...] | + + + + + | [facility] | [address] | [place] [address] | | | SERVICES, CORE | SHANIA [...] Final/Electronically | | | | | | alana / RAULITO | | | | | | MAGUE 07/31/2016 8:24 AM | | | | [...] | | | + +---------+ + + LUCIO (07/31/2016 12:00 AM PST) + + + [...] | + + + + + | [facility] | [address] | [place] [address] | | | SERVICES, CAM | [address] | | | + + [...] | | | LABORATORY | | | BELARUSIAN | | | SERVICES, | | | [...] + + + + | [facility] | [address] | [place] [address] | | | SERVICES, CORE | PARK [...] HIV-QNT PCR | Undetected | Undetected, | [facility] | | | | | Undetected - [...] | + + + + + | [facility] | [address] | [place] [address] | | | DIAGNOSTIC | [address] [...] [facility] | [address] | [place], [place] | | | SREE POINT OF CARE | [address] | [address] | | | TESTS | | | [...] | + + + + + | [facility] | [address] | [place] [address] | | | SERVICES, CORE | SHANIA [...] + | [facility] | [address] | [place] [address] | | | [place] | | | | + + + [...] [facility] | [address] | [place] [address] | | | SERVICES, CORE | PARK [...] | | | LABORATORY | | | BELARUSIAN | | | SERVICES, | | | [...] | + + + + + | [facility] | [address] | [place] [address] | | | SERVICES, CORE | SHANIA [...] | + + + + + | [facility] | [address] | [place] [address] | | | SERVICES, CORE | PARK [...] | + + + + + | [facility] | [address] | [place] [address] | | | SERVICES, CORE | SHANIA [...] [facility] | [address] | [place], [place] | | | [place] OF CARE | [address] | [address] | | | TESTS | | | [...] | | | | | | Pathology FellowKevin R | | | | | | MD [...] | | | | cs determined by [facility] | | | | | | laboratories. [...] Ph.D.PathologistElectron | | | | | | ically Signed 08/01/2016 | | | | | [...] | + + + + + | [facility] | [address] | [place] [address] | | | PATHOLOGY | [address] [...] [facility] | [address] | [place], [place] | | | SREE POINT OF CARE | [address] | [address] | | | TESTS | | | [...] [facility] | [address] | [place], [place] | | | [place] | [address] | [address] | | | TESTS | | | [...] [facility] | [address] | [place], [place] | | | SREE POINT OF CARE | [address] | [address] | | | TESTS | | | [...] + | [facility] | [address] | [place], [place] | | | [place] POINT OF CARE | [address] | [address] | | | TESTS | | | [...] | + + + + + | [facility] | [address] | [place] [address] | | | SERVICES, CORE | SHANIA [...] | | | LABORATORY | | | BELARUSIAN | | | SERVICES, | | | [...] + + + + | [facility] | [address] | [place] [address] | | | SERVICES, CORE | SHANIA [...] GON[facility] | [address] | [place], [place] | | | SREE POINT OF CARE | [address] | [address] | | | TESTS | | | [...] CARLOS | [address] | [place], [place] | | | [facility] | [facility] | [address] | | | TESTS | | | [...] + + + + | [facility] | [address] | [place] [address] | | | SERVICES, CORE | PARK [...] | | | LABORATORY | | | BELARUSIAN | | | SERVICES, | | | [...] equation recommended by the | [facility] | | National Kidney Disease Education Program. [...] | + + + + + | [facility] | [address] | [place] [address] | | | [place] | SHANIA [...] (H) | 60 - 99 mg/dL | [facility] - | | | GLUCOSE, | | [...] GON[facility] | [address] | [place], [place] | | | [place] OF CARE | [address] | [address] | | | TESTS | | | [...] CARLOS | [address] | [place], [place] | | | [place] | [address] | [address] | | | TESTS | | | [...] G[facility] | [address] | [place], [place] | | | SREE [place] | [address] | [address] | | | TESTS | | | [...] an | | | | | | [id number] 109 | | | | | | [...] [facility] | [address] | [place], [place] | | | SREE POINT OF CARE | [address] | [address] | | | TESTS | | | | + + + + + MAGNESIUM, PLASMA (07/26/2016 4:16 AM PST) + +-------+ + + + | Component | Value | Ref Range | Performed | Pathologist | | | | | At | Signature | + +-------+ + + + | MAGNESIUM,P | 2.4 | 1.8 - 2.5 mg/dL | [facility] [...] [facility] | [address] | [place] [address] | | | SERVICES, CORE | PARK [...] | | | LABORATORY | | | BELARUSIAN | | | SERVICES, | | | [...] | + + + + + | [facility] | [address] | [place] [address] | | | SERVICES, CORE | PARK [...] [facility] | [address] | [place], [place] | | | [place] | [facility] | [address] | | | TESTS | | | [...] (H) | 60 - 99 mg/dL | [facility] - | | | GLUCOSE, | | [...] G[facility] | [address] | [place], [place] | | | SREE POINT OF CARE | [address] | [address] | | | TESTS | | | | + + + + + MAGNESIUM, PLASMA (07/25/2016 3:56 PM PST) + +-------+ + + + | Component | Value | Ref Range | Performed | Pathologist | | | | | At | Signature | + +-------+ + + + | MAGNESIUM,P | 2.5 | 1.8 - 2.5 mg/dL | [facility] | | | L[facility] | | | [...] + + + + | [facility] | [address] | [place] [address] | | | SERVICES, CORE | PARK [...] | | | LABORATORY | | | BELARUSIAN | | | SERVICES, | | | [...] | + + + + + | [facility] | [address] | [place] [address] | | | SERVICES, CORE | SHANIA [...] by | | | | | | Audreyattending | | | | | | radiologist. A probation and patrol agent | | | | | | film demonstrated a 12 | | | | | | Israeli Dobbhoff | | | | | | [...] | | | | a 12 Fr row-xbeysamj-wbd | | | | | | Doppler feeding tube | | | | | | with tipat the | | | | | | duodenal-jejunal | | | | | | junction. The attending | | | | | | radiologist, | | | | | | MD Audrey, was | | | | | | present for and | | | | | | participatedin the | | | | | | entire procedure. END | | | | | | IMPRESSION Attending | | | | | | Radiologists: STEF | | | | | | VANI ROSAuthor: | | | | | | STEF ROSA MD | | | | | | [...] | | | signed / STEF | Sanchez | | | | AUDREY 07/25/2016 | [...] CARLOS | [address] | [place], [place] | | | [facility] | [address] | [address] | | | TESTS | | | [...] | + + + + + | [facility] | [address] | [place] [address] | | | SERVICES, CORE | SHANIA [...] | | | LABORATORY | | | BELARUSIAN | | | SERVICES, | | | [...] | + + + + + | [facility] | [address] | [place] [address] | | | SERVICES, CORE | SHANIA [...] G[facility] | [address] | [place], [place] | | | [place] | [facility] | [address] | | | TESTS | | | | + + + + + CAPILLARY BLOOD GLUCOSE (NO CHG) POC (07/25/2016 12:05 AM PST) + +---------+ [...] [facility] | [address] | [place], [place] | | | SREE POINT OF CARE | [facility] | [address] | | | TESTS | | | [...] + + + + | [facility] | [address] | [place] [address] | | | SERVICES, CORE | PARK [...] | | | LABORATORY | | | BELARUSIAN | | | SERVICES, | | | [...] equation recommended by the | [facility] | | National Kidney Disease Education Program. [...] | + + + + + | [facility] | [address] | [place] [address] | | | SERVICES, [facility] | [address] | | | + [...] + + + | [facility] | [address] | [place], [place] | | | [place] OF CARE | [address] | [address] | | | TESTS | | | [...] [facility] | [address] | [place] [address] | | | SERVICES, CORE | PARK [...] | | | LABORATORY | | | BELARUSIAN | | | SERVICES, | | | [...] | + + + + + | [facility] | [address] | [place] [address] | | | [place] | SHANIA [...] [facility] | [address] | [place], [place] | | | SREE POINT OF CARE | [address] | [address] | | | TESTS | | | | + + + + + MAGNESIUM, PLASMA (07/24/2016 6:43 AM PST) + +-------+ + + + | Component | Value | Ref Range | Performed | Pathologist | | | | | At | Signature | + +-------+ + + + | MAGNESIUM,P | 2.4 | 1.8 - 2.5 mg/dL | [facility] [...] [facility] | [address] | [place] [id number] | | | SERVICES, CORE | SHANIA [...] [facility] | [address] | [place] [address] | | | SERVICES, CORE | PARK [...] | | | LABORATORY | | | BELARUSIAN | | | SERVICES, | | | [...] equation recommended by the | [facility] | | National Kidney Disease Education Program. [...] | + + + + + | [facility] | [address] | [place] [address] | | | [address] [place] | [address]IA [...] (H) | 60 - 99 mg/dL | [facility] - | | | GLUCOSE, | | [...] [facility] | [address] | [place], [place] | | | [place] OF CARE | [address] | [address] | | | TESTS | | | | + + + + + [facility] GI (19-9), SERUM (07/24/2016 3:25 AM PST) + + + + + + | Component | Value | Ref Range | Performed | Pathologist | | | | | At | Signature | + + + + + + | [facility] | 103.0 (H) | <=37.0 U/mL | [facility] | | | GI (19-9) | | | LABORATORY | | | [...] + + | [facility] | [address] | [place] [address] | | | SERVICES, CORE | PARK [...] + + + + | [facility] | [address] | [place] [address] | | | [place] | SHANIA [...] 98 | 60 - 99 mg/dL | [facility] - | | | GLUCOSE, | | [...] G[facility] | [address] | [place], [place] | | | [facility] | [address] | [address] | | | TESTS | | | [...] | + + + + + | [facility] | [address] | [place] [address] | | | SERVICES, CORE | PARK [...] | | | LABORATORY | | | BELARUSIAN | | | SERVICES, | | | [...] | + + + + + | [facility] | [address] | [place] [address] | | | SERVICES, CORE | [address] | | | + + + [...] [facility] | [address] | [place], [place] | | | [place] OF CARE | [address] | [address] | | | TESTS | | | [...] | | | | | | FINDINGS: Project Analyst KUB: The | | | | | [...] COLLEEN | | | | | | RENYA 07/23/2016 16:02 | | | | | | PM | | | | + + + + + + + + | Specimen | + + | | + + + +---------+ + + | Performing | Address | City/State/Zipcode | Phone Number | | Organization | | | | + +---------+ + + | [facility] DEPARTMENT OF | | | | | RADIOLOGY | | | | + +---------+ + + X-RAY PORTABLE CHEST 1 VIEW (07/23/2016 3:10 PM PST) + + + + + + | Component | Value | Ref Range | Performed | Pathologist | | | | | At | Signature | + + + + + + | X-RAY | EXAM: UT CHEST 1 VIEW | | | | [...] Note Indications:TPN Procedure location: | | | Unit:[facility] Room: 54 Providers: Attending [...] vein. Catheter lot number: | | | [id number] with a length of 55 cm was [...] [facility] | [address] | [place] [address] | | | SERVICES, CORE | PARK [...] and new reporting units as of | [facility] | | 12/21/2013. | LABORATORY | | | SERVICES, CORE | + + + + + + + + | Performing | Address | City/State/Zipcode | Phone Number | | Organization | | | | + + + + + | [facility] | [address] | [place] [address] | | | SERVICES, CORE | [address] | | | + + + + + MAGNESIUM, PLASMA (07/23/2016 10:33 AM PST) + +-------+ + + + | Component | Value | Ref Range | Performed | Pathologist | | | | | At | Signature | + +-------+ + + + | MAGNESIUM,P | 2.5 | 1.8 - 2.5 mg/dL | [facility] | | | LASMA | | | [...] + + + + | [facility] | [address] | [place] [address] | | | SERVICES, CORE | PARK [...] + +---------+ + + + | [facility] | No Hemo | | [facility] [...] | + + + + + | [facility] | [address] | [place] [address] | | | SERVICES, CORE | SHANIA [...] | | | LABORATORY | | | BELARUSIAN | | | SERVICES, | | | [...] | + + + + + | [facility] | [address] | [place] [address] | | | SERVICES, CORE | SHANIA [...] | | | | | | GUSTABO SOMAN MD I | | | | | [...] | | | | | | DELMI JONES | | | | | | MDAuthor: DELMI | | | | | | MD Mora JONES | | | | | | personally [...] | + + + + + | [facility] | [id number] | [place] [address] | | | SERVICES, CORE | SHANIA [...] - | | | | | | [facility] | | + + + + + + + + | Specimen | + + | Blood - Blood | | (substance) | + + + + + + + | Performing | Address | City/State/Zipcode | Phone Number | | Organization | | | | + + + + + | [facility] | [address] | [place] [address] | | | [facility] | | | | + + + [...] [facility] | [address] | [place] [address] | | | SERVICES, CORE | PARK [...] [facility] | [address] | [place] [address] | | | SERVICES, CORE | PARK [...] | | | LABORATORY | | | BELARUSIAN | | | SERVICES, | | | [...] | + + + + + | [facility] | [address] | [place] [address] | | | SERVICES, CORE | SHANIA [...] TIMES DAILY NEEDED, | | | Starting Thu07/24/16 at 2000, | | | Until Thu08/01/16 [...] PST | | | | | at 2015, Until Discontinued | | | | | [...] | | | IV infusion 16 g at 3.3 mL/hr, | | 17 8:19 | | mL/hr | | | intravenous, TPN 2100, Starting | | PM PST | | | | | 07/23/16 at 2099, Until Liliana | | | | | | | 07/24/16 at 2058 | | | | | | + +---------+ +------+-------+---+ +---+---+ | | | +---+---+ + + + +------+---------+---+ | fat emulsion (INTRALIPID) 20 % | Rate/Dos | 07/25/19 | 19 g | 4 mL/hr | | | IV infusion 19 g at 4 mL/hr, | e Verify | 17 11:41 | [...] | | | IV infusion 23 g at 4.8 mL/hr, | e Verify | 17 5:06 | [...] | | | IV infusion 23 g at 4.8 mL/hr, | e Verify | 17 4:00 | [...] | | | IV infusion 23 g at 4.8 mL/hr, | e Verify | 17 8:00 | | mL/hr | | | intravenous, TPN 2100, Starting | | PM PST | | | | | 07/27/16 at 2100, Until Mon | | | | | | | 07/28/16 at 2059 | | | | [...] | | | | Until Thu07/29/16 at 1657 | | | | | [...] 5:14 | | | | | Starting e 07/29/16 at 1715, | | PM PST | | | | | Until e 07/29/16 at 1714 | | | | | | + +-------+ +--------+---+---+ +---+---+ | | | +---+---+ + +-------+ +--------+---+---+ | fentaNYL (SUBLIMAZE) injection | Given | 07/31/19 | 50 mcg | | | | intravenous, INTRAPROCEDURE PRN, | | 17 1:41 | | | | | Starting [facility] 07/31/16 at 1341, | | PM PST | | | | | Until [facility] 07/31/16 at 1341 | | | [...] | | | | | 1 dose, [facility] 07/24/16 at 2045 | | | [...] PST | | | | | dose, Liliana 07/31/16 at 0945 | | | | [...] | | | | | | Until 07/29/16 at 1622 | | | | | | + +-------+ +------+---+---+ +---+---+ | | | +---+---+ + +-------+ +------+---+---+ | lidocaine viscous (XYLOCAINE | Given | 07/31/19 | 9 mL | | | | VISCOUS) 2 % mucosal solution | | 17 1:37 | | | | | Mouth/Throat, INTRAPROCEDURE PRN, | | PM PST | | | | | Starting [facility] 07/31/16 at 1337, | | | | | | | Until [facility] 07/31/16 at 1337 | | | | | | + +-------+ +------+---+---+ +---+---+ | | | +---+---+ + +-------+ +-------+---+---+ | loratadine (CLARITIN) tablet 10 | Given | 08/01/19 | 10 mg | | | | mg 10 mg, oral, DAILY, First | | 17 8:24 | | | | | dose on Cash 07/27/16 at 1500, Until | | AM [...] 5:14 | | | | | Starting 07/29/16 at 1714, | | PM PST | | | | | Until e 07/29/16 at 1714 | | | | [...] | | | 07/22/16 at 0429, Until Tu07/22/16 | | | | | | | [...] | NEEDED, Starting 07/22/16 at | | AM PST | | [...] | | | | | NEEDED, Starting [facility] 07/24/16 at | | | | | | | 0959, Until Thu07/30/16 at 1550, | | | | | | | moderate pain | | | | | | + +-------+ +-------+---+---+ +-------+ +-------+---+---+ | Given | 07/26/19 | 10 mg | | | | | 12:15 | | | | | | [...] | | | | | NEEDED, Starting Thu07/22/16 at | | | | | | [...] | | | | | 2100, Starting Thu07/23/16 at | | AM PST | | [...] | | | | | 2100, Starting Thu07/24/16 at | | AM PST | | | | | 2100, Until Thu07/25/16 at 2059 | | | | | [...] | | | | | 2100, Until Thu07/28/16 at 2059 | | | | | [...] +---+---+ + +-------+ + +---+---+ | peg-electrolyte (CLAUDIOYTELY) | Given | 07/29/19 | 2,000 mL [...] | 30 mmol, intravenous, ONCE, | | 3:28 | | | | | dose, [facility] 07/24/16 at 0300 | | AM PST [...]
--- OUTSIDE RECORDS SUMMARY | ~2019-07-17 | XMS | Encounter Summary ---
Demographics + + + | Address | [address] | | | [place] [address] | + + + | Home Phone [...] Author + + + | Author | [facility] | + + + | Organization | [facility] | + + + | Address | Unknown | + + + | Phone | Unavailable | + + + Support + + + + + | Name | Relationship | Address | Phone | + + + + + | Yennifer Batista | ECON | [address] | | | | | [place] | | | | | [address] | | + + + + + Care Team Providers + +------+ + | Care Curb And Gutter Laborer Name | Role | Phone | + [...] | | CONSULT TO | Rd | [id number] | | | | | GI PROCEDURE | [place], [place] | [place] | | | | | UNIT: | [address] | [address] | | | | | COLONOSCOPY | Phone: | [place], | | | | | CONSULT TO | [phone] | [place] [address] | | | | | GI PROCEDURE | Fax: | Phone: | | | | | UNIT: EGD W | [phone] | [phone] | | | | | COLONOSCOPY | | Fax: | | | | | | | [phone] | +--------+--------+ + + + + Encounter Details +--------+ + + + + | Date | Type | Department | Care Team | Description | +--------+ + + + + | 06/30/ | Telephone | Endoscopic | Damaris Woods MD | | | 2018 | | Procedural Unit at | [address] | | | | | [place] [place] [address] | [facility], | | | | | [address] | [place] [address] | | | | | Mailcode: [facility]83 | [phone] | | | | | Isabella Sargent | | | | | | [address] [facility] [place] | | | | | | [address] | | | | | | [phone] | | | +--------+ + + + [...] | | | | | | [place] [address] | | | | | | [phone] | | | | | | | [...] | | | | | | [place] [address] | | | | | | [phone] | | | | | | | | +--------+ + + + + documented as of this encounter Visit Diagnoses + + | Diagnosis | + + | Esophageal stenosis - Primary Stricture and stenosis of esophagus | + + documented in this encounter"
--- OUTSIDE RECORDS SUMMARY | ~2019-07-17 | XMS | Encounter Summary ---
Demographics + + + | Address | [address] | | | [place] [address] | + + + | Home Phone [...] + | Author | [facility] | + + + | Organization | [facility] | + + + | Address | Unknown | + + + | Phone | Unavailable | + + + Support + + + + + | Name | Relationship | Address | Phone | + + + + + | Yennifer Batista | ECON | [address] | | | | | [place] | | | | | [address] | | + + + + + Care Team Providers + +------+ + | Care Automotive General Sales Manager Name | Role | Phone | + +------+ + | Ed Landis MD PCP | | + +------+ + Encounter Details +--------+ + + + + | Date | Type | Department | Care Team | Description | +--------+ + + + + | 02/17/ | Pharmacy | [facility] | | | | 2018 | Visit | & [facility] | | | | | | [address] | | | | | | Mailcode: [place] | | | | | | for [facility] and | | | | | | Healing, [address] | | | | | | [place], [place] | | | | | | [address] | | | | | | [phone] | | | +--------+ + + + [...] | | | | | | [place] [address] | | | | | | [phone] | | | | | | | [...] | | | | | | [place] [address] | | | | | | [phone] | | | | | | | | +--------+ + + + + documented as of this encounter Visit Diagnoses Not on filedocumented in this encounter"
--- OUTSIDE RECORDS SUMMARY | ~2019-07-17 | XMS | Encounter Summary ---
Demographics + + + | Address | [address] | | | [place] [address] | + + + | Home Phone [...] + | Author | [facility] | + + + | Organization | [facility] | + + + | Address | Unknown | + + + | Phone | Unavailable | + + + Support + + + + + | Name | Relationship | Address | Phone | + + + + + | Yennifer Batista | ECON | [address] | | | | | [place] | | | | | [address] | | + + + + + Care Team Providers + +------+ + | Care Industrial Coffee Grinder Name | Role | Phone | + +------+ + | Leidy Grullon MD | PCP | | + +------+ + Encounter Details +--------+ + + + + | Date | Type | Department | Care Team | Description | +--------+ + + + + | 03/21/ | Abstract | Cardiology | Adriana Holly | | | 2013 | | Preventive at [facility] | RASHI Restrepo [address] | | | | | [address] | [address] [place], | | | | | Mailcode: CH9A | [place] [address] | | | | | [facility] | [phone] | | | | | and [place], | | | | | | [address] | | | | | | [place], [place] | | | | | | [address] | | | | | | [phone] | | | +--------+ + + + [...] | | | | | | [place] [address] | | | | | | [phone] | | | | | | | [...] | | | | | | [place] [address] | | | | | | [phone] | | | | | | | | +--------+ + + + + documented as of this encounter Visit Diagnoses Not on filedocumented in this encounter"
--- OUTSIDE RECORDS SUMMARY | ~2019-07-17 | XMS | Encounter Summary ---
Demographics + + + | Address | [address] | | | [place] [address] | + + + | Home Phone [...] + | Author | [facility] [employer] [facility] | + + + | Organization | [facility] [employer] [facility] | + + + | Address | Unknown | + + + | Phone | Unavailable | + + + Support + + + + + | Name | Relationship | Address | Phone | + + + + + | Yennifer Batista | ECON | [address] | | | | | [place] | | | | | [address] | | + + + + + Care Team Providers + +------+ + | Care Cpc Coder Name | Role | Phone | + [...] | 03/23/ | Telephone | Urology at [facility] | Larissa Doe, | Referral Needed | | 2013 | | [address] | Jesus Leiva MD 1 | (Cardiology preop) | | | | Mailcode: CH10U | [facility] | | | | | [facility] | [address] | | | | | and Healing, | [place] [address] | | | | | [facility] | [phone] | | | | | Floor [place], [place] | | | | | | [address] | | | | | | [phone] | | | +--------+ + + + [...] | | | | | | [place] [address] | | | | | | [phone] | | | | | | | [...] | | | | | | [place] [address] | | | | | | [phone] | | | | | | | | +--------+ + + + + documented as of this encounter Visit Diagnoses Not on filedocumented in this encounter"
--- OUTSIDE RECORDS SUMMARY | ~2019-07-17 | XMS | Encounter Summary ---
Demographics + + + | Address | [address] | | | [place] [address] | + + + | Home Phone [...] + + | Author | [facility] | + + + | Organization | [facility] | + + + | Address | Unknown | + + + | Phone | Unavailable | + + + Support + + + + + | Name | Relationship | Address | Phone | + + + + + | Yennifer Batista | ECON | [address] | | | | | [place] | | | | | [address] | | + + + + + Care Team Providers + +------+ + | Care Traveling Inventory Associate Name | Role | Phone | [...] | | | | behavior of | [place] | [address] | | | | | adrenal | Urology [address] | | | | | gland | [address] | [address] | | | | | [address] [place], | [address] | | | | | | [place] [address] | [place], [place] | | | | | | Phone: | [address] Phone: | | | | | | [phone] | [phone] | | | | | | Fax: | Fax: | | | | | | [phone] | [phone] | +--------+ + + + + + Encounter Details +--------+---------+ + + + | Date | Type | Department | Care Team | Description | +--------+---------+ + + + | 01/26/ | Office | Urology at [facility] | Larissa Doe, | Adrenal mass (HCC) | | 2013 | Visit | [address] | Malu Leiva MD [address] | (Primary Dx) | | | | Mailcode: CH10U | [facility] | | | | | [facility] | [address] | | | | | and Healing, | [place] [address] | | | | | [facility] | [phone] | | | | | Floor [place], [place] | | | | | | [address] | | | | | | [phone] | | | +--------+---------+ + + + [...] Plan for excision . MALU KAUR MD professor/nurse anesthetist of urology Ofe Pizarro MA - 01/26/2014 [...] in this enco unter Plan of Treatment +--------+ + + + [...] | | | | | Ellen Marinelli [place], | | | | | | [place] [address] | | | | | | [phone] | | | | | | | | +--------+ + + + + | 11/10/ | Appointment | Procedural Care Unit | | | | 2020 | | | | | +--------+ + + + + | 11/10/ | Appointment | Gastroenterology | Efrain Mcmullen MD | | | 2019 | | | [address] | | | | | | [place], | | | | | | [place] [address] | | | | | | [phone] | | | | | | | [...] | | | LABORATORY | | | INDIAN | | | SERVICES, | | | [...] | + + + + + | [facility] | [address] | [place] [address] | | | SERVICES, CORE | [address] | | | + + + + + RADIOLOGY (02/10/2014 12:00 AM PDT) + + + | Narrative | Performed At | + + + | | | | | | + + + + + | Procedure Note | + + | Other, Faculty - 03/21/2014 1:51 PM PDT | + + UA 10 DIP, POC (01/26/2014 1:04 PM PDT) + + + [...] [facility] | [address] [facility] | [place] [address] | | | OF CARE TESTS | | | | + + + + + documented in this encounter Visit Diagnoses + + | Diagnosis | + + | 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"
--- OUTSIDE RECORDS SUMMARY | ~2019-07-17 | XMS | Encounter Summary ---
Demographics + + + | Address | [address] | | | [place] [address] | + + + | Home Phone [...] + + | Author | [facility] | + + + | Organization | [facility] | + + + | Address | Unknown | + + + | Phone | Unavailable | + + + Support + + + + + | Name | Relationship | Address | Phone | + + + + + | Yennifer Batista | ECON | [address] | | | | | [place] | | | | | [address] | | + + + + + Care Team Providers + +------+ + | Care Tool Dresser Name | Role | Phone | + [...] [id number] | | | | | | [facility] | | | | | | [address] [place], [place] | | | | | | [address] | | | | | | [phone] | | | +--------+ + + + [...] perfume, lotions or powder. Remove any nail botswanan from at least one fingernail. Do not [...] Surgery Check in Locations Day Stay Unit [facility], fourth floor Room 3958 Surgery Check in Time: Someone from your [...] it is after office hours, call the [facility] solid glass rod dowel machine operator at [phone] and ask them to page your doc [...] | | | | | Shania Marinelli [place], | | | | | | [place] [address] | | | | | | [phone] | | | | | | | [...] | | | | | Shania [place] | | | | | | [place] [address] | | | | | | [phone] | | | | | | | | +--------+ + + + + documented as of this encounter Visit Diagnoses Not on filedocumented in this encounter"
--- OUTSIDE RECORDS SUMMARY | ~2019-07-17 | XMS | Encounter Summary ---
Demographics + + + | Address | [address] | | | [place] [address] | + + + | Home Phone [...] + | Author | [facility] | + + + | Organization | [facility] [employer] [facility] | + + + | Address | Unknown | + + + | Phone | Unavailable | + + + Support + + + + + | Name | Relationship | Address | Phone | + + + + + | Yennifer Batista | ECON | [address] | | | | | [place] | | | | | [address] | | + + + + + Care Team Providers + +------+ + | Care Roller Stainer Name | Role | Phone | + [...] | | [address] | [address]ania [place], | | | | | Mailcode: CH6A | [place] [address] | | | | | [place], [place] | | | | | | [address] | | | | | | [phone] | | | +--------+ + + + [...] | | | | | | [place] [address] | | | | | | [phone] | | | | | | | [...] | | | | | | [place] [address] | | | | | | [phone] | | | | | | | | +--------+ + + + + documented as of this encounter Visit Diagnoses Not on filedocumented in this encounter"
--- OUTSIDE RECORDS SUMMARY | ~2019-07-17 | XMS | Encounter Summary ---
Demographics + + + | Address | [address] | | | [place] [address] | + + + | Home Phone [...] + | Author | [facility] | + + + | Organization | [facility] [facility] | + + + | Address | Unknown | + + + | Phone | Unavailable | + + + Support + + + + + | Name | Relationship | Address | Phone | + + + + + | Yennifer Batista | ECON | [address] | | | | | [place] | | | | | [address] | | + + + + + Care Team Providers + +------+ + | Care Optical Laboratory Technician Name | Role | Phone | [...] | 2016 | on | Center at [facility] [address] | MD Kiesha,[facility] [address] | | | | | [address] | [address] | | | | | Mailcode: [place] | [place] [address] | | | | | [facility] and | [phone] | | | | | [facility] [address] | | | | | | [place], [place] | | | | | | [address] | | | | | | [phone] | | | +--------+ + + + [...] | | | | | | [place] [address] | | | | | | [phone] | | | | | | | [...] | | | | | | [place] [address] | | | | | | [phone] | | | | | | | | +--------+ + + + + documented as of this encounter Visit Diagnoses Not on filedocumented in this encounter"
--- OUTSIDE RECORDS SUMMARY | ~2019-07-17 | XMS | Encounter Summary ---
Demographics + + + | Address | [address] | | | [place] [address] | + + + | Home Phone [...] + | Author | [facility] [employer] [facility] | + + + | Organization | [facility] [employer] [facility] | + + + | Address | Unknown | + + + | Phone | Unavailable | + + + Support + + + + + | Name | Relationship | Address | Phone | + + + + + | Yennifer Batista | ECON | [address] | | | | | [place] | | | | | [address] | | + + + + + Care Team Providers + +------+ + | Care Concrete Mixer Loader Truck Mounted Name | Role | Phone | + +------+ + | Ed Landis MD | PCP | | + +------+ + Reason for Visit + + + | Reason | Comments | + + + | Pre-operative | OPEN ADRENALECTOMY on 08/17/2014 by Theresa Beyer MD at [facility] | | evaluation | | + + + Encounter Details +--------+---------+ + + + | Date | Type | Department | Care Team | Description | +--------+---------+ + + + | 08/04/ | Office | Preoperative | Basilia Almeida | Preop examination | | 2015 | Visit | Medicine Clinic at | R, STRATIGRAPHY TEACHER [address] | (Primary Dx); GERD | | | | [facility] 4th Floor [address] | (gastroesophageal | | | | [address] | [place], [place] | reflux disease); | | | | Mailcode: [facility] | [address] | Depression; | | | | [facility] | [phone] | Irregular heart | | | | and Healing, | | beat; Lower back | | | | Building 1,4th Floor | | pain; Adrenal mass | | | | [place], [place] | | ([facility]) | | | | [address] | | | | | | [phone] | | | +--------+---------+ + + + [...] after surgery. Surgery Check in Locations Admitting [facility], ninth floor lob Surgery Check in [...] it is after office hours, call the [facility] handle rounder operator at [phone] and ask them to page him or [...] santoyo for above procedure. Last seen in [facility] on 03/21/2014 for pre-op evaluation [...] Surgical History Procedure Date Jaw surgery 1986 [facility] Cyst removal-leg 1993 Lower leg Family History Problem Relation Anesthesia Neg Hx Heart Disease Father [place] age 40's History Substance Use Topics Smoking [...] Date RATE 84 03/21/2014 ATRIALRATE 83 03/21/2014 MI 164 03/21/2014 QRS 78 03/21/2014 QT 372 [...] further investigation and manageme nt. A. Acute [place] within 7 days: no B. Unstable angina/Recent [place] (7- 30 days): no C. Decompensated CHF: [...] no Rate of cardiac , non fatal [place], non fatal cardiac arrest (RCRI) 0 risk [...] to this patient's care. BASILIA ALMEIDA NP [facility] PREOPER[facility] AT [facility] 4TH FLOOR [address] [facility] [address] I counseled the patient regarding [...] | | | | | [address] [place], | | | | | | [place] [address] | | | | | | [phone] | | | | | | | | +--------+ + + + + | 11/10/ | Appointment | Procedural Care Unit | | | | 2019 | | | | | +--------+ + + + + | 11/10/ | Appointment | Gastroenterology | Efrain Mcmullen MD | | | 2019 | | | [address] | | | | | | Ellen [place]elli [place], | | | | | | [place] [address] | | | | | | [phone] | | | | | | | | +--------+ + + + + + + +--------+ + + | Name | Type | Priori | Associated Diagnoses | Order Schedule | | | | ty | | | + + +--------+ + + | COMMUNICATION TO [facility] | Procedures | Routin | [...] | + +--------+ + + + | MI COLLECTION VENOUS | Routin | 08/04/2014 | [...] [facility] | [address] | [place] [address] | | | OF CARE TESTS | [...] [facility] | [address] | [place] [address] | | | SERVICES, | [address] [...] [facility] | [address] | [place] [address] | | | SERVICES, | [address] [...] [facility]TER | [address] | [place] [address] | | | SERVICES, CORE | [address] [...] | + + + + + | [facility] | [address] | [place] [address] | | | SERVICES, CORE | [address] [...] | | | LABORATORY | | | THAI | | | SERVICES, | | | [...] + + + + + | [facility] | [address] | [place] [address] | | | SERVICES, CORE | [address] [...]
--- OUTSIDE RECORDS SUMMARY | ~2019-07-17 | XMS | Encounter Summary ---
Demographics + + + | Address | [address] | | | [place] [address] | + + + | Home Phone [...] + | Author | [facility] | + + + | Organization | [facility] [employer] [facility] | + + + | Address | Unknown | + + + | Phone | Unavailable | + + + Support + + + + + | Name | Relationship | Address | Phone | + + + + + | Yennifer Batista | ECON | [address] | | | | | [place] | | | | | [address] | | + + + + + Care Team Providers + +------+ + | Care Mortgage Counselor Name | Role | Phone | [...] | | | | GI PROCEDURE | [place], [place] | [place] | | | | | UNIT: | [address] | [address] | | | | | COLONOSCOPY | Phone: | [place], | | | | | CONSULT TO | [phone] | [place] [address] | | | | | GI PROCEDURE | Fax: | Phone: | | | | | UNIT: EGD W | [phone] | [phone] | | | | | COLONOSCOPY | | Fax: | | | | | | | [phone] | +--------+--------+ + + + + Encounter [...] | | [address] | [facility], | | | | | [address] | [place] [address] | | | | | Mailcode: UHN83 | [phone] | | | | | [address] | | | | | | [address] [facility] [place] | | | | | | [address] | | | | | | [phone] | | | +--------+ + + + [...] | | | | | | [place] [address] | | | | | | [phone] | | | | | | | [...] | | | | | | [place] [address] | | | | | | [phone] | | | | | | | | +--------+ + + + + documented as of this encounter Visit Diagnoses + + | Diagnosis | + + | Esophageal stenosis - Primary Stricture and stenosis of esophagus | + + documented in this encounter"
--- OUTSIDE RECORDS SUMMARY | ~2019-07-17 | XMS | Encounter Summary ---
Demographics + + + | Address | [address] | | | [place] [address] | + + + | Home Phone | | + + + | Preferred Language | Unknown | + + + | Marital Status | Single | + + + | Pentecostalism Affiliation | ZEFERINO | + + + | Race | or | + + + | Ethnic Group | Not or | + + + Author + + + | Author | [facility] | + + + | Organization | [facility] [facility] | + + + | Address | Unknown | + + + | Phone | Unavailable | + + + Support + + + + + | Name | Relationship | Address | Phone | + + + + + | Yennifer Batista | ECON | [address] | | | | | [place] | | | | | [address] | | + + + + + Care Team Providers + +------+ + | Care Jersey Knitter Name | Role | Phone | + +------+ + | Ed Landis MD | PCP | | + +------+ + Encounter Details +--------+ + + + + | Date | Type | Department | Care Team | Description | +--------+ + + + + | 09/12/ | Inside | [facility] | Katie Kohler | | | 2016 | Referral | [facility] [address] | MD Kiesha,MPH [address] | | | | Order | [address] Mailcode: | [address] | | | | | OC2L [facility] | [place] [address] | | | | | Health and Healing, | [phone] | | | | | Building [address] | | | | | | [place], [place] | | | | | | [address] | | | | | | [phone] | | | +--------+ + + + [...] | | | | | | [place] [address] | | | | | | [phone] | | | | | | | [...] | | | | | | [place] [address] | | | | | | [phone] | | | | | | | | +--------+ + + + + documented as of this encounter Results EGD (09/17/2016 4:08 PM PST) + + | Specimen | + + | | + + + +------- -------+ | Narrative | Perfor med At | + +------- -------+ | MRN: | [facility] | | [id number] Date: 09/17/2016Patient Name: Order #: [id number] | ENDOSC OPY | | of : 1960CSN: [id number]: [facility] 2Procedure: | | | Upper GI [...] The Olympus GIF-HQ190 Gastroscope | | | #[id number] was introduced through the | | | [...]
--- OUTSIDE RECORDS SUMMARY | ~2019-07-17 | XMS | Encounter Summary ---
Demographics + + + | Address | [address] | | | [place] [address] | + + + | Home Phone [...] + + | Author | [facility] [employer] [facility] | + + + | Organization | [facility] [employer] [facility] | + + + | Address | Unknown | + + + | Phone | Unavailable | + + + Support + + + + + | Name | Relationship | Address | Phone | + + + + + | Yennifer Batista | ECON | [address] | | | | | [place] | | | | | [address] | | + + + + + Care Team Providers + +------+ + | Care Renewals Representative Name | Role | Phone | + [...] | | | | esophageal | [address] | [address] | | | | | stricture | Ave | Mailcode: | | | | | Gastroesopha | [place], [place] | UHN83 | | | | | geal reflux | [address] | [place] | | | | | disease with | Phone: | [address] | | | | | esophagitis | [phone] | [place], | | | | | | Fax: | [place] [address] | | | | | Adenomatous | [phone] | Phone: | | | | | polyp of | | [phone] | | | | | ascending | | Fax: | | | | | colon | | [phone] | | | | | Procedures | | | | | | | CONSULT TO | | | | | | | GI PROCEDURE | | | | | | | UNIT: EGD W | | | | | | | COLONOSCOPY | | | | | | | CT UPPER | | | | | | | GI | | | | | | | ENDOSCOPY,BI | | | | | | | OPSY CT | | | | | | | COLONOSCOPY, | | | | | | | FLEX, | | | | | | | W/BIOPSY CT | | | | | | | ANES UPR | | | | | | | LWR GI NDSC | | | | | | | PX CT UP GI | | | | | | | | | | | | | | ENDOSCOPY,BA | | | | | | | LL DIL,30MM | | | +--------+--------+ + + + + Encounter Details +--------+ + + + + | Date | Type | Department | Care Team | Description | +--------+ + + + + | 02/17/ | Patient Admitting Clerk | Digestive Health | Dar Dalton MD | Benign esophageal | | 2018 | | [place] [address] [address] | [address] | stricture (Primary | | | | [address] | [place], [place] | Dx); | | | | Mailcode: OC8D | [address] | Gastroesophageal | | | | [facility] | [phone] | reflux disease with | | | | and Healing, | | esophagitis; | | | | Building [address] | | 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
--- OUTSIDE RECORDS SUMMARY | ~2019-07-17 | XMS | Encounter Summary ---
Demographics + + + | Address | [address] | | | [place] [address] | + + + | Home Phone [...] + + + | Author | [facility] | + + + | Organization | [facility] [employer] [facility] | + + + | Address | Unknown | + + + | Phone | Unavailable | + + + Support + + + + + | Name | Relationship | Address | Phone | + + + + + | Yennifer Batista | ECON | [address] | | | | | [place] | | | | | [address] | | + + + + + Care Team Providers + +------+ + | Care Tripoler Name | Role | Phone | + +------+ + | Sujatha Sullivan | PCP | | | SENIOR RUBY DEVELOPER | | | + +------+ + Encounter [...] | | at [place] [address] | [facility] | | | | | [address] | [place] [address] | | | | | Loop Mailcode: | | | | | | OP[address] | | | | | | [facility] | | | | | | [place], [place] | | | | | | [address] | | | | | | [phone] | | | +--------+ + + + [...] | | | | | | [place] [address] | | | | | | [phone] | | | | | | | [...] | | | | | | [place] [address] | | | | | | [phone] | | | | | | | [...]
--- OUTSIDE RECORDS SUMMARY | ~2019-07-17 | XMS | Encounter Summary ---
Demographics + + + | Address | [address] | | | [place] [address] | + + + | Home Phone | | + + + | Preferred Language | Unknown | + + + | Marital Status | Single | + + + | Samaritan Affiliation | ZEFERINO | + + + | Race | or | + + + | Ethnic Group | Not or | + + + Author + + + | Author | [email or web address] | + + + | Organization | [facility] [employer] [facility] | + + + | Address | Unknown | + + + | Phone | Unavailable | + + + Support + + + + + | Name | Relationship | Address | Phone | + + + + + | Yennifer Batista | ECON | [address] | | | | | [place] | | | | | [address] | | + + + + + Care Team Providers + +------+ + | Care Court Security Officer Name | Role | Phone | [...] | | | | [address] | [place], [place] | stricture; S/P | | | | Mailcode: L223A | [address] | dilatation of | | | | [facility] | [phone] | esophageal | | | | [address] [place], [place] | | stricture; Severe | | | | [address] | | protein-calorie | | | | [phone] | | malnutrition (Sen: | | | [...] Childs MD TRAUMA EMERGENCY GENERAL SURGERY AT [place] [address] Mailcode: L223a [place] [address] [id number] Natacha Peace MD - 08/11/2016 3:00 PM [...] July of 2015 who was transferred from [facility] in Early July 2016 with 100 [...] ssment and plan. Natacha Nelson MD Pager [phone] PGY-2 General Surgery Emergency General Surgery Team [...] | | | | | | [place] [address] | | | | | | [phone] | | | | | | | [...] | | | | | | [place] [address] | | | | | | [phone] | | | | | | | [...]
--- OUTSIDE RECORDS SUMMARY | ~2019-07-17 | XMS | Encounter Summary ---
Demographics + + + | Address | [address] | | | [place] [address] | + + + | Home Phone [...] + + | Author | [facility] [employer] [facility] | + + + | Organization | [facility] [employer] [facility] | + + + | Address | Unknown | + + + | Phone | Unavailable | + + + Support + + + + + | Name | Relationship | Address | Phone | + + + + + | Yennifer Batista | ECON | [address] | | | | | [place] | | | | | [address] | | + + + + + Care Team Providers + +------+ + | Care Survey Instrument Operator Name | Role | Phone | [...] | on | General Surgery at | [facility] | | | | | [address] [place], [place] | | | | | [address] | [address] | | | | | Mailcode: L223A | | | | | | [address] | | | | | | [address] [facility] [place] | | | | | | [address] | | | | | | [phone] | | | +--------+ + + + [...] | | | | | | [place] [address] | | | | | | [phone] | | | | | | | [...] | | | | | | [place] [address] | | | | | | [phone] | | | | | | | | +--------+ + + + + documented as of this encounter Visit Diagnoses Not on filedocumented in this encounter"
--- OUTSIDE RECORDS SUMMARY | ~2019-07-17 | XMS | Encounter Summary ---
Demographics + + + | Address | [address] | | | [place] [address] | + + + | Home Phone [...] + + | Author | [facility] | + + + | Organization | [facility] [employer] [facility] | + + + | Address | Unknown | + + + | Phone | Unavailable | + + + Support + + + + + | Name | Relationship | Address | Phone | + + + + + | Yennifer Batista | ECON | [address] | | | | | [place] | | | | | [address] | | + + + + + Care Team Providers + +------+ + | Care Inspector Cold Working Name | Role | Phone | + [...] | | | | UNIT: EGD | [place], [place] | and Healing, | | | | | SC UPPER GI | [address] | [address] | | | | | ENDOSCOPY,BI | Phone: | [place], [place] | | | | | OPSY [place] UP | [phone] | [address] | | | | | GI | Fax: | Phone: | | | | | ENDOSCOPY,BA | [phone] | [phone] | | | | | LL DIL,30MM | | Fax: | | | | | SC UPPER GI | | [phone] | | | | | | | | | | | | ENDOSCOPY,LI | | | | | | | GAT VARIX | | | +--------+--------+ + + + + Encounter Details +--------+ + + + + | Date | Type | Department | Care Team | Description | +--------+ + + + + | 08/11/ | Director Of Enterprise Strategy | Digestive Health | Frederic Kohler | Esophageal stricture | | 2017 | | [place] at [facility] [address] | MD Kiesha,MPH [address] | (Primary Dx) | | | | [address] | [address] | | | | | Mailcode: OC8D | [place] [address] | | | | | [facility] | [phone] | | | | | and Healing, | | | | | | Building [address] | | | | | | [place], [place] | | | | | | [address] | | | | | | [phone] | | | +--------+ + + + [...] | | | | | | [place] [address] | | | | | | [phone] | | | | | | | [...] | | | | | | [place] [address] | | | | | | [phone] | | | | | | | | +--------+ + + + + documented as of this encounter Visit Diagnoses + + | Diagnosis | + + | Esophageal stricture - Primary Stricture and stenosis of esophagus | + + documented in this encounter"
--- OUTSIDE RECORDS SUMMARY | ~2019-07-17 | XMS | Encounter Summary ---
Demographics + + + | Address | [address] | | | [place] [address] | + + + | Home Phone [...] + + | Author | [facility] [employer] [facility] | + + + | Organization | [facility] [employer] [facility] | + + + | Address | Unknown | + + + | Phone | Unavailable | + + + Support + + + + + | Name | Relationship | Address | Phone | + + + + + | Yennifer Batista | ECON | [address] | | | | | [place] | | | | | [address] | | + + + + + Care Team Providers + +------+ + | Care Checkering Machine Adjuster Name | Role | Phone | + [...] | 2018 | | [address] | [facility] | | | | | [address] | Road [facility] [place] | | | | | Mailcode: L223A | [address] | | | | | Physician's [place] | | | | | | [address] [place], | | | | | | [place] [address] | | | | | | [phone] | | | +--------+ + + + [...] | | | | | | [place] [address] | | | | | | [phone] | | | | | | | [...] | | | | | | [place] [address] | | | | | | [phone] | | | | | | | | +--------+ + + + + documented as of this encounter Visit Diagnoses Not on filedocumented in this encounter"
--- OUTSIDE RECORDS SUMMARY | ~2019-07-17 | XMS | Encounter Summary ---
Demographics + + + | Address | [address] | | | [place] [address] | + + + | Home Phone [...] + + + | Author | [facility] | + + + | Organization | [facility] [employer] [facility] | + + + | Address | Unknown | + + + | Phone | Unavailable | + + + Support + + + + + | Name | Relationship | Address | Phone | + + + + + | Yennifer Batista | ECON | [address] | | | | | [place] | | | | | [address] | | + + + + + Care Team Providers + +------+ + | Care Burnisher And Bumper Name | Role | Phone | + [...] | 01/30/ | Telephone | Urology at [facility] | Larissa Doe, | Treatment Planning | | 2013 | | [address] | Jesus Leiva MD [address] | (MRI needed) | | | | Mailcode: CH10U | [facility] | | | | | [facility] | [address] | | | | | and Healing, | [place] [address] | | | | | [facility] | [phone] | | | | | Floor [place], [place] | | | | | | [address] | | | | | | [phone] | | | +--------+ + + + [...] | | | | | Shania Marinelli [place], | | | | | | [place] [address] | | | | | | [phone] | | | | | | | [...] | | | | | Shania Marinelli [place], | | | | | | [place] [address] | | | | | | [phone] | | | | | | | | +--------+ + + + + documented as of this encounter Visit Diagnoses Not on filedocumented in this encounter"
--- OUTSIDE RECORDS SUMMARY | ~2019-07-17 | XMS | Encounter Summary ---
Demographics + + + | Address | [address] | | | [place] [address] | + + + | Home Phone [...] + + | Author | [facility] | + + + | Organization | [facility] | + + + | Address | Unknown | + + + | Phone | Unavailable | + + + Support + + + + + | Name | Relationship | Address | Phone | + + + + + | Yennifer Batista | ECON | [address] | | | | | [place] | | | | | [address] | | + + + + + Care Team Providers + +------+ + | Care Stationary Engineer Apprentice Name | Role | Phone | + [...] | Event | Procedural Unit at | [place], [place] | | | | | [address] | [address] | | | | | [address] | | | | | | Mailcode: UHN83 | | | | | | [address] | | | | | | [address] [place], [place] | | | | | | [address] | | | | | | [phone] | | | +--------+ + + + [...] | | | | | | [place] [address] | | | | | | [phone] | | | | | | | [...] | | | | | | [place] [address] | | | | | | [phone] | | | | | | | | +--------+ + + + + documented as of this encounter Visit Diagnoses Not on filedocumented in this encounter"
--- OUTSIDE RECORDS SUMMARY | ~2019-07-17 | XMS | Encounter Summary ---
Demographics + + + | Address | [address] | | | [place] [address] | + + + | Home Phone [...] + | Author | [facility] [employer] [facility] | + + + | Organization | [facility] [employer] [facility] | + + + | Address | Unknown | + + + | Phone | Unavailable | + + + Support + + + + + | Name | Relationship | Address | Phone | + + + + + | Yennifer Batista | ECON | [address] | | | | | [place] | | | | | [address] | | + + + + + Care Team Providers + +------+ + | Care Livestock Trucker Name | Role | Phone | + +------+ + | Sujatha Sullivan | PCP | | | FIRE MARSHAL REFINERY | | | + +------+ + Reason [...] | | Preop | Adriana Restrepo, | h [address] | | | | | cardiovascul | PA-C [address] | [address] | | | | | ar exam | [address] | Mailcode: | | | | | Arrhythmia | [place], | [address] | | | | | [place] (dyspnea | [place] | [address] [place] | | | | | on | [address] | Building | | | | | exertion) | Phone: | [place], [place] | | | | | Procedures | [phone] | [address] | | | | | STRESS | Fax: | Phone: | | | | | ECHOCARDIOGR | [phone] | [phone] | | | | | AM, CONVERT [...] Hospital | Cardiac | | | | 2013 | Encounter | Non-Invasive Testing | | | | | | at [facility] [address] | | | | | | [address] Mailcode: | | | | | | CH9A [facility] | | | | | | Health and Healing, | | | | | | Building [address] | | | | | | [place], [place] | | | | | | [address] | | | | | | [phone] | | | +--------+ + + + [...] | | | | | | [place] [address] | | | | | | [phone] | | | | | | | [...] | | | | | | [place] [address] | | | | | | [phone] | | | | | | | [...] | | | | | PRN, Starting Thu06/07/14 at | | | | | | | 1453, Until Thu06/08/14 at 0620, | | | | | | | image acquisition | | | | | | + +---------+ +--------+------+------+ +---+---+ | | | +---+---+ documented in this encounter"
--- OUTSIDE RECORDS SUMMARY | ~2019-07-17 | XMS | Encounter Summary ---
Demographics + + + | Address | [address] | | | [place] [address] | + + + | Home Phone [...] + | Author | [facility] | + + + | Organization | [facility] [employer] [facility] | + + + | Address | Unknown | + + + | Phone | Unavailable | + + + Support + + + + + | Name | Relationship | Address | Phone | + + + + + | Yennifer Batista | ECON | [address] | | | | | [place] | | | | | [address] | | + + + + + Care Team Providers + +------+ + | Care Scrub Technician Name | Role | Phone | [...] + + | 02/17/ | Hospital | [facility] GI PROCEDURE | Dar Dalton MD | | | 2018 | Encounter | [address] | [address] | | | | | Ave Mailcode: [facility] | [place], [place] | | | | | [facility] | [address] | | | | | Health and Healing, | [phone] | | | | | [place] [address] | | | | | | [place], [place] | | | | | | [address] | | | | | | [phone] | | | +--------+ + + + [...] Discharge Instructions Instructions Oliver Nguyễn RN - 02/17/2018[place] Care Instructions after EGD (Upper Endos copy) [...] hours or on weekends and holiday Hospital Energy Conservation Representative toll free [phone] and have the GI doctor supervisor calibration paged. The provider who performed your procedure is: Dr. Dalton Results of your EGD: Unable to complete [...] as of this encounter Progress Notes Dar Dalton MD - 02/17/2018 2:53 PM PDTFormatting of this note might be different from jaja madden. PRE PROCEDURE NOTE: MR# [id number] Subjective: Franck Batista is a 57 y.o. [...] in this encoun ter Plan of Treatment +--------+ + + + [...] | | | | | [address] [place] [place], | | | | | | [place] [address] | | | | | | [phone] | | | | | | | [...] | | | | | Shania Marinelli [place], | | | | | | [place] [address] | | | | | | [phone] | | | | | | | [...] + | MRN: | [facility] | | [id number] Date: 02/17/2018Patient Name: Franck Mares #: | ENDOSCOPY | | [id number] of : 1960CSN: [id number] Type: | | | AmbulatoryRoom: [facility] 1Procedure: Upper GI | | | endoscopyIndications: DysphagiaProviders: | | | DAR DALTON MD (Doctor), OLIVER NGUYỄN RN (Nurse), | | | TYE GLYNN (Tool Worker), SANDRA MORALES, Tool Worker | | | (Tool Worker)Referring MD: | | | DAKSHA ALARCON MDRequesting [...] | | | The Olympus GIF-HQ190 Gastroscope #[id number] was | | | introduced through the [...] | omeprazole 20mg q AM (script given)DAR DALTON | | | 02/17/2018 3:24:58 PMThis report has been signed electronically.Number | | | of Addenda: 0Note Initiated On: 02/17/2018 2:39 PM | | | omeprazole 20mg q AM (script given) | | |DAR DALTON MD | | |02/17/2018 3:24:58 PM | [...] 2:57 | | | | | Starting 02/17/18 at 1457, | | PM PDT | [...]
--- OUTSIDE RECORDS SUMMARY | ~2019-07-17 | XMS | Encounter Summary ---
Demographics + + + | Address | [address] | | | [place] [address] | + + + | Home Phone [...] | Author | [facility] [employer] [facility] | + + + | Organization | [facility] [employer] [facility] | + + + | Address | Unknown | + + + | Phone | Unavailable | + + + Support + + + + + | Name | Relationship | Address | Phone | + + + + + | Yennifer Batista | ECON | [address] | | | | | [place] | | | | | [address] | | + + + + + Care Team Providers + +------+ + | Care Service Clerk Name | Role | Phone | [...] Esophageal | MD Travis | [facility] [address] | | | | | stricture | [address] | [address] | | | | | Procedures | [place] | Mailcode: | | | | | CONSULT TO | Rd | OC2L Center | | | | | GI PROCEDURE | [place], [place] | for Health | | | | | UNIT: EGD W | [address] | and Healing, | | | | | DILATION | | [address] | | | | | [place] UPPER GI | | [place], [place] | | | | | ENDOSCOPY,BI | | [address] | | | | | OPSY [place] UP | | Phone: | | | | | GI | | [phone] | | | | | ENDOSCOPY,BA | | Fax: | | | | | LL DIL,30MM | | [phone] | +--------+--------+ + + + + Encounter Details +--------+ + + + + | Date | Type | Department | Care Team | Description | +--------+ + + + + | 07/31/ | Telephone | Digestive Health | Travis Maldonado MD | | | 2016 | | Center at [facility] [address] | | | | | | [address] | | | | | | Mailcode: Center | | | | | | for Health and | | | | | | Healing, [address] | | | | | | [place], [place] | | | | | | [address] | | | | | | [phone] | | | +--------+ + + + [...] | +--------+ + + + + | 04/24/ | Hospital | | Efrain Mcmullen MD | | | 2019 | Encounter | | [address] | | | | | | [place], | | | | | | [place] [address] | | | | | | [phone] | | | | | | | [...] | | | | | | [place] [address] | | | | | | [phone] | | | | | | | | +--------+ + + + + documented as of this encounter Visit Diagnoses + + | Diagnosis | + + | Esophageal stricture - Primary Stricture and stenosis of esophagus | + + documented in this encounter"
--- OUTSIDE RECORDS SUMMARY | ~2019-07-17 | XMS | Encounter Summary ---
Demographics + + + | Address | [address] | | | [place] [address] | + + + | Home Phone [...] | Author | [facility] [employer] [facility] | + + + | Organization | [facility] [employer] [facility] | + + + | Address | Unknown | + + + | Phone | Unavailable | + + + Support + + + + + | Name | Relationship | Address | Phone | + + + + + | Yennifer Batista | ECON | [address] | | | | | [place] | | | | | [address] | | + + + + + Care Team Providers + +------+ + | Care Oil Expeller Operator Name | Role | Phone | [...] Pharmacy | | | | | | [address] | | | | | | [place] | | | | | | [address] | | | | | | [phone] | | | +--------+ + + + [...] | | | | | Shania Marinelli [place], | | | | | | [place] [address] | | | | | | [phone] | | | | | | | [...] | | | | | Shania Marinelli [place], | | | | | | [place] [address] | | | | | | [phone] | | | | | | | | +--------+ + + + + documented as of this encounter Visit Diagnoses Not on filedocumented in this encounter"
--- OUTSIDE RECORDS SUMMARY | ~2019-07-17 | XMS | Encounter Summary ---
Demographics + + + | Address | [address] | | | [place] [address] | + + + | Home Phone [...] | Author | [facility] | + + + | Organization | [facility] [employer] [facility] | + + + | Address | Unknown | + + + | Phone | Unavailable | + + + Support + + + + + | Name | Relationship | Address | Phone | + + + + + | Yennifer Batista | ECON | [address] | | | | | [place] | | | | | [address] | | + + + + + Care Team Providers + +------+ + | Care Residential Team Leader Name | Role | Phone | + +------+ + | Ed Landis MD | PCP | | + +------+ + Encounter Details +--------+ + + + + | Date | Type | Department | Care Team | Description | +--------+ + + + + | 09/18/ | Inside | [facility] | Malinda Mason MD | | | 2017 | Referral | [address] | [address] | | | | Order | [address] Mailcode: | [place], [place] | | | | | [address] [facility] | [address] | | | | | Health and Healing, | [phone] | | | | | Building [address] | | | | | | [place], [place] | | | | | | [address] | | | | | | [phone] | | | +--------+ + + + [...] | | | | | | [place] [address] | | | | | | [phone] | | | | | | | [...] | | | | | | [place] [address] | | | | | | [phone] | | | | | | | | +--------+ + + + + +------+ +--------+ + + | Name | [...]
--- OUTSIDE RECORDS SUMMARY | ~2019-07-17 | XMS | Encounter Summary ---
Demographics + + + | Address | [address] | | | [place] [address] | + + + | Home Phone [...] + | Author | [facility] | + + + | Organization | [email or web address] [facility] | + + + | Address | Unknown | + + + | Phone | Unavailable | + + + Support + + + + + | Name | Relationship | Address | Phone | + + + + + | Yennifer Batista | ECON | [address] | | | | | [place] | | | | | [address] | | + + + + + Care Team Providers + +------+ + | Care Government Property Inspector Name | Role | Phone | + +------+ + | Ed Landis MD PCP | | + +------+ + Encounter Details +--------+ + + + + | Date | Type | Department | Care Team | Description | +--------+ + + + + | 06/02/ | Pharmacy | [facility] | | | | 2013 | Visit | [facility] | | | | | | [address] | | | | | | Mailcode: [place] | | | | | | [facility] | | | | | | Healing, [address] | | | | | | [place], [place] | | | | | | [address] | | | | | | [phone] | | | +--------+ + + + [...] | | | | | | [place] [address] | | | | | | [phone] | | | | | | | [...] | | | | | | [place] [address] | | | | | | [phone] | | | | | | | | +--------+ + + + + documented as of this encounter Visit Diagnoses Not on filedocumented in this encounter"
--- OUTSIDE RECORDS SUMMARY | ~2019-07-17 | XMS | Encounter Summary ---
Demographics + + + | Address | [address] | | | [place] [address] | + + + | Home Phone [...] + + | Author | [facility] | + + + | Organization | [facility] | + + + | Address | Unknown | + + + | Phone | Unavailable | + + + Support + + + + + | Name | Relationship | Address | Phone | + + + + + | Yennifer Segovia | ECON | [address] | | | | | [place] | | | | | [address] | | + + + + + Care Team Providers + +------+ + | Care Gardening Manager Name | Role | Phone | [...] + + | 08/17/ | Hospital | [facility] [address] | Theresa Beyer, | | | 2015 - | Encounter | [address] | [address] [place] [address] | | | | | 12/UHS31 [facility] | [place] [address] | | | 08/22/ | | [facility], | [phone] | | | 2014 | | [place] [address] | | | | | | [phone] | | | +--------+ + + + [...] can cause constipation, so you may take clby-fnf-dtgevmt stool softeners (Senok ot-S, Miralax, Colace) following [...] Physician: Theresa Beyer MD Patient: COREEN SEGOVIA [id number] 24H events/Subjective: МАРИНА overnight. Emesis x1 yesterday [...] is Theresa Beyer MD. PATRICIA PATTERSON MD [facility] 4A [address] [facility] 12/s31 [place] [address] Zay Sherman MD - 08/20/2014 4:54 AM PST Urology Progress Note Hospital Day: 3 Author: ZAY HERNANDEZ MD Attending Physician: Theresa Beyer MD Patient: COREEN SEGOVIA [id number] 24H events/Subjective: No acute events overnight. Pain [...] Resident - R5 Department of Urology Pager #[phone] Zay Sherman MD - 08/19/2014 7:49 AM PST Urology Progress Note Hospital Day: 2 Author: PATRICIA PATTERSON MD Attending Physician: Theresa eByer MD Patient: COREEN SEGOVIA [id number] 24H events/Subjective: МАРИНА overnight. Pain is adequately [...] Caitlin Falk NP Adult Pain Service Pager [phone] Team Pager [phone] Caitlin Jiménez NP - 08/18/2014 8:02 AM [...] and summary of old medical records (source: Pax8), as summarized in the body of the note. CAITLIN FALK NP BILLING INFORMATION [facility] DEPARTMENT: [id number] Place of Service:- Inpatient Date of Service: 08/18/2014 [facility]: [id number] Suggested Modifier: None Suggested CPT: 72933 - Daily mgmt epidural/subarachnoid drug administration Prolonged service: n/a Counseling and Coordination: n/a Patricia Chappell MD - 08/18/2014 6:46 AM PST Urology Progress Note Hospital Day: 1 Author: PATRICIA PATTERSON MD Attending Physician: Theresa Beyer MD Patient: COREEN ALDANA [facility] [id number] 24H events/Subjective: Tachycardic overnight asymptomatic otherwise >> [...] is Theresa Beyer MD. PATRICIA PATTERSON MD [facility] [address]A [address] 12c/[address]s31 [place] [address] Zay Sherman MD - 08/17/2014 10:44 AM PST [facility] PRE-OPERATIVE HISTORY & PHYSICAL EXAM CHIEF [...] History Procedure Laterality Date Jaw surgery 1986 [facility] Cyst removal-leg Right 1993 Lower leg [...] Resident - R5 Department of Urology Pager #[phone] documented in this encounter Plan of Treatment [...] | | | | | | [place] [address] | | | | | | [phone] | | | | | | | [...] | | | | | | [place] [address] | | | | | | [phone] | | | | | | | [...] [facility] | [address] | [place] [address] | | | SERVICES, CORE | PARK [...] | + + + + + | [facility] | [address] | [place] [address] | | | SERVICES, CORE | PARK [...] | + + + + + | [facility] | [address] | [place] [address] | | | SERVICES, CORE | PARK [...] | | | LABORATORY | | | VIETNAMESE | | | SERVICES, | | | [...] [facility] | [address] | [place] [address] | | | SERVICES, CORE | PARK [...] [facility] | [address] | [place] [address] | | | SERVICES, CORE | ELLEN [...] | + + + + + | [facility] | [address] | [place] [address] | | | SERVICES, CORE | PARK [...] | + + + + + | [facility] | [address] | [place] [address] | | | SERVICES, CORE | ELLEN [...] | | | LABORATORY | | | VIETNAMESE | | | SERVICES, | | | [...] [facility] | [address] | [place] [address] | | | SERVICES, CAM | ELLEN [...] + | [facility] | [address] | [place] [address] | | | SERVICES, CORE | PARK [...] | + + + + + | [facility] | [address] | [place] [address] | | | SERVICES, CORE | PARK [...] | + + + + + | [facility] | [address] | [place] [address] | | | SERVICES, CAM | ELLEN [...] | | | LABORATORY | | | VIETNAMESE | | | SERVICES, | | | [...] | + + + + + | [facility] | [address] | [place] [address] | | | SERVICES, CORE | PARK [...] [facility] | [address] | [place] [address] | | | SERVICES, CORE | PARK [...] | | | LABORATORY | | | VIETNAMESE | | | SERVICES, | | | [...] the MDRD equation recommended by the | [facility] | | National Kidney Disease Education Program. [...] | + + + + + | [facility] | [address] | [place] [address] | | | CAM WALLS | ELLEN [...] | + + + + + | [facility] | [address] | [place] [address] | | | SERVICES, CORE | [address] | | | + + + + + MAGNESIUM, PLASMA (08/19/2014 5:35 AM PST) + +-------+ + + + | Component | Value | Ref Range | Performed | Pathologist | | | | | At | Signature | + +-------+ + + + | MAGNESIUM,P | 1.8 | 1.8 - 2.5 mg/dL | EVETTE [...] | + + + + + | [facility] | [address] | [place] [address] | | | SERVICES, CORE | PARK [...] [facility] | [address] | [place] [address] | | | SERVICES, CORE | PARK [...] | + + + + + | [facility] | [address] [facility] | [place] [address] | | | SERVICES, CORE | ELLEN [...] [facility] | [address] | [place] [address] | | | CAM WALLS | ELLEN [...] | | | LABORATORY | | | VIETNAMESE | | | SERVICES, | | | [...] the MDRD equation recommended by the | [facility] | | National Kidney Disease Education [...] | + + + + + | [facility] | [address] | [place] [address] | | | SERVICES, CORE | ELLEN [...] [facility] | [address] | [place] [address] | | | SERVICES, CORE | ELLEN [...] [facility] | [address] | [place] [address] | | | SERVICES, CORE | PARK [...] | | | LABORATORY | | | VIETNAMESE | | | SERVICES, | | | [...] | + + + + + | [facility] | [address] | [place] [address] | | | KAVITA, CAM | ELLEN [...] [facility] | [address] | [place] [address] | | | SERVICES, CORE | ELLEN [...] DEPT OF | [address] | [place], [place] | | | CARDIOLOGY | [address] | [address] | | + + + + + [...] GONZALEZ | [address] | [place], [place] | | | ARUN BALBUENA OF RICKIE | [facility] | [address] | | | TESTS | | | | + + + + + HARDEEP VALDEZ (08/17/2014 11:56 AM PST) + +-------+ + [...] [facility] | [address] | [place], [place] | | | HILL, POINT OF CARE | [facility] | [address] | | | TESTS | | | [...] | | POC | | mmol/L | CARLOS | | | | | | SREE [...] - [facility] | [address] | [place], [place] | | | SREE POINT OF CARE | [address] | [address] | | | TESTS | | | [...] GONZALEZ | [address] | [place], [place] | | | ARUN BALBUENA OF [facility] | [address] | [address] | | | TESTS | | | [...] [facility] | [address] | [place], [place] | | | SREE POINT OF CARE | [address] | [address] | | | TESTS | | | [...] + | [facility] | [address] [facility] [address] | [place], [place] | | | SREE POINT OF CARE | [address] | [address] | | | TESTS | | | [...] GONZALEZ | [address] | [place], [place] | | | SREE POINT OF CARE | [address] | [address] | | | TESTS | | | [...] [facility] | [address] | [place], [place] | | | SREE POINT OF CARE | [address] | [address] | | | TESTS | | | [...] Index:A1-3, | | | | | | district representative adrenal | | | | | | to massA4-6, | | | | | | district representative | | | | | | [...] | + + + + + | [facility] | [address] | [place] [address] | | | PATHOLOGY | [address] [...] | | | | at 1730, Until 08/18/14 at | | | | | | [...] PST | | | | | Starting [facility] 08/17/14 at 1232, | | | | | | | Until [facility] 08/17/14 at 1821, | | | | [...] | | | 08/17/14 at 1842, Until Thu08/22/14 | | | | | | | [...] magnesium sulfate in water IV | New | 08/21/19 | 2 g | | [...] | | | | | dose on [facility] 08/17/14 at 1845, | | AM [...] NEEDED, Starting Liliana 08/17/14 at | | AM PST | | [...]
--- OUTSIDE RECORDS SUMMARY | ~2019-07-17 | XMS | Encounter Summary ---
Demographics + + + | Address | [address] | | | [place] [address] | + + + | Home Phone [...] | Author | [facility] | + + + | Organization | [facility] [employer] [facility] | + + + | Address | Unknown | + + + | Phone | Unavailable | + + + Support + + + + + | Name | Relationship | Address | Phone | + + + + + | Yennifer Batista | ECON | [address] | | | | | [place] | | | | | [address] | | + + + + + Care Team Providers + +------+ + | Care Shot Blast Equipment Operator Name | Role | Phone | + +------+ + | Ed Landis MD | PCP | | + +------+ + Encounter Details +--------+ + + + + | Date | Type | Department | Care Team | Description | +--------+ + + + + | 07/01/ | Inside | [facility] | Damaris Woods MD | | | 2018 | Referral | [facility] [address] | [address] | | | | Order | John [address] Mailcode: | Shania Marinelli [place], | | | | | [address]L [facility] | [place] [address] | | | | | Health and Healing, | [phone] | | | | | Building [address] | | | | | | [place], [place] | | | | | | [address] | | | | | | [phone] | | | +--------+ + + + [...] [address] | | | | | | [place], | | | | | | [place] [address] | | | | | | [phone] | | | | | | | [...] | | | | | | [place] [address] | | | | | | [phone] | | | | | | | [...]
--- OUTSIDE RECORDS SUMMARY | ~2019-07-17 | XMS | Encounter Summary ---
Demographics + + + | Address | [address] | | | [place] [address] | + + + | Home Phone [...] + + | Author | [facility] | + + + | Organization | [facility] | + + + | Address | Unknown | + + + | Phone | Unavailable | + + + Support + + + + + | Name | Relationship | Address | Phone | + + + + + | Yennifer Batista | ECON | [address] | | | | | [place] | | | | | [address] | | + + + + + Care Team Providers + +------+ + | Care United [place] Attorney Name | Role | Phone | + +------+ + | Leidy Grullon MD | PCP | | + +------+ + Encounter Details +--------+ + + + + | Date | Type | Department | Care Team | Description | +--------+ + + + + | 03/21/ | Abstract | Cardiology | Adriana Holly | | | 2013 | | Preventive at [facility] | [address] | | | | | [address] | [address] [place], | | | | | Mailcode: CH9A | [place] [address] | | | | | [facility] | [phone] | | | | | and [place], | | | | | | Building [address] | | | | | | [place], [place] | | | | | | [address] | | | | | | [phone] | | | +--------+ + + + [...] | | | | | | [place] [address] | | | | | | [phone] | | | | | | | [...] | | | | | | [place] [address] | | | | | | [phone] | | | | | | | | +--------+ + + + + documented as of this encounter Visit Diagnoses Not on filedocumented in this encounter"
--- OUTSIDE RECORDS SUMMARY | ~2019-07-17 | XMS | Encounter Summary ---
Demographics + + + | Address | [address] | | | [place] [address] | + + + | Home Phone [...] [facility] | + + + | Organization | Counts Include [facility] | + + + | Address | Unknown | + + + | Phone | Unavailable | + + + Support + + + + + | Name | Relationship | Address | Phone | + + + + + | Yennifer Batista | ECON | [address] | | | | | [place] | | | | | [address] | | + + + + + Care Team Providers + +------+ + | Care Cad Operator Name | Role | Phone | [...] | | | | | dilatation | [place], [place] | for Health | | | | | of | [address] | and Healing, | | | | | esophageal | Phone: | [address] | | | | | stricture | [phone] | [place], [place] | | | | | Polyp of | Fax: | [address] | | | | | colon, | [phone] | Phone: | | | | | unspecified | | [phone] | | | | | part of | | Fax: | | | | | colon, | | [phone] | | | | | unspecified | [...] | | | | | | | [place] UPPER GI | | | | | | | | | | | | | | ENDOSCOPY,BI | | | | | | | OPSY [place] | | | | | | | [...] | | | | | [facility] | [address] | | | | | | [place] | [address] | | | | | | Health | Mailcode: | | | | | | Center | [address] | | | | | | [address] | [facility] | | | | | | [facility] | [address] | | | | [address] | [place], [place] | | | | | | [place], | [address] | | | | | | [place] [address] | Phone: | | | | | | Phone: | [phone] | | | | | | [phone] | Fax: | | | | | | Fax: | [phone] | | | | | | [phone] | | +--------+--------+ + + + + [...] | | | [facility] [address] | [address] | Dx); S/P dilatation | | | | [address] | [place], [place] | of esophageal | | | | Mailcode: L223A | [address] | stricture; Severe | | | | [facility] | [phone] | protein-calorie | | | | [address] [place], [place] | | malnutrition (Sen: | | | | [address] | | less than 60% of | | | | [phone] | | standard weight) | | | [...] has chosen to have the CT in [place] . Plan: Patient will follow up after [...] | | | | | Shania Marinelli [place], | | | | | | [place] [address] | | | | | | [phone] | | | | | | | [...] | | | | | Shania Marinelli [place], | | | | | | [place] [address] | | | | | | [phone] | | | | | | | [...]
--- OUTSIDE RECORDS SUMMARY | ~2019-07-17 | XMS | Encounter Summary ---
Demographics + + + | Address | [address] | | | [place] [address] | + + + | Home Phone [...] Author | [facility] | + + + | Organization | [facility] 2U [facility] | + + + | Address | Unknown | + + + | Phone | Unavailable | + + + Support + + + + + | Name | Relationship | Address | Phone | + + + + + | Yennifer Batista | ECON | [address] | | | | | [place] | | | | | [address] | | + + + + + Care Team Providers + +------+ + | Care Fire Investigation Manager Name | Role | Phone | + +------+ + | Sujatha Sullivan | PCP | | | RESEARCH DIETITIAN | | | + +------+ + Reason [...] | | | | | Arrhythmia | [place], | [address] | | | | | NSVT | [place] | [address] | | | | | (nonsustaine | [address] | Building | | | | | d | Phone: | [place], [place] | | | | | ventricular | [phone] | [address] | | | | | tachycardia) | Fax: | Phone: | | | | | (HCC) | [phone] | [phone] | | | | | Procedures | [...] | Cardiology | Diagnoses | Avni | Pabltio | | | | | Arrhythmia | [place], | Arrhythmia Ep | | | | | [place]EN | PA[address]C [address] | | | | | (dyspnea on | [address] | [address] | | | | | exertion) | [place], | Mailcode: | | | | | NSVT | [place] | [facility] Center | | | | | (nonsustaine | [address] | for Health | | | | | d | Phone: | and Healing, | | | | | ventricular | [phone] | Building 1, | | | | | tachycardia) | Fax: | 7th Floor | | | | | (HCC) | [phone] | [place], [place] | | | | | Procedures | | [address] | | | | | CONSULT TO | | Phone: | | | | | CARDIOLOGY | | [phone] | | | | | | | Fax: | | | | | | | [phone] | +--------+--------+ + + + + Diagnostic [...] | | | | | Arrhythmia | [place], | [address] | | | | | COHEN (dyspnea | [place] | [address] | | | | | on | [address] | Building | | | | | exertion) | Phone: | [place], [place] | | | | | Procedures | [phone] | [address] | | | | | STRESS | Fax: | Phone: | | | | | ECHOCARDIOGR | [phone] | [phone] | | | | | AM, CONVERT [...] | 2013 | Visit | [facility]ive at [facility] | [address] | exam (Primary Dx); | | | | [address] | [address] [place], | Arrhythmia; [place] | | | | Mailcode: CH9A | [place] [address] | (dyspnea on | | | | [facility] | [phone] | exertion); NSVT | | | | and Healing, | | (nonsustained | | | | Building 1 | | ventricular | | | | [place], [place] | | tachycardia) (HCC) | | | | [address] | | | | | | [phone] | | | +--------+---------+ + + + [...] and cardiac test results from admission to [facility] [place] in 2009 Schedule exercise echocardiogram 48 hour [...] 1 Rate of cardiac , non fatal AK, non fatal cardiac arrest 0 risk factors - 0.4% (very low) 1 risk factors - 0.9% (low) 2 risk factors - 6.6%, (moderate) 3 or >risk factors - 11% (high Final Preoperative Recommendations: Records reviewed from [facility] from admission on 12/17/2010-12/19/2010 for chest pain. Patient ruled out. Had history of chronic alcoholism, GERD and esophageal erosions. Ot her admission was on 02/03/2011-02/05/2011 for grand-mal seizure from snorting Wellbutrin and alcohol withdrawal. No evidence of prior AK or CAD by records or by recent [...] "irratic heartbeat". Reports he went to hospital ([facility] [place])for 4 days - did tests but he [...] Relation Anesthesia Neg Hx Heart Disease Father AK age 40's History Substance Use Topics Smoking [...] 0.72 03/21/2014 GLU 81 03/21/2014 ECG 11/18/2013 ([facility]) - Sinus rhythm with sinus arrhytmia. [...] 1 Rate of cardiac , non fatal AK, non fatal cardiac arrest 0 risk factors [...] 07/03/2014. he has vague history of possible AK by patient report, undergoing Intermediate risk surgery, with good reported exercise toleranc e but with COHEN with sustained effort..History more suggestive of atrial fibrillation, but po ssible he could have had AK. On no cardiac medications at this point. Given that he is such a vague historian, with no source records to confirm history, I would consider stress testin g. No further symptoms of palpitations, but could have occult PAF. Will need all progress notes and cardiac test results from admission to [facility] [place] in 2009 Schedule exercise echocardiogram 48 hour [...] [address] Mailcode: [facility] [place] [place] [id number] documented in t his encounter Plan of [...] | | | | | | [place] [address] | | | | | | [phone] | | | | | | | [...] | | | | | | [place] [address] | | | | | | [phone] | | | | | | | [...] DEPT OF | [address] | [place], [place] | | | CARDIOLOGY | [address] | [address] | | + + + + + [...]
--- OUTSIDE RECORDS SUMMARY | ~2019-07-17 | XMS | Encounter Summary ---
Demographics + + + | Address | [address] | | | [place] [address] | + + + | Home Phone [...] + | Author | [facility] | + + + | Organization | [facility] [facility] | + + + | Address | Unknown | + + + | Phone | Unavailable | + + + Support + + + + + | Name | Relationship | Address | Phone | + + + + + | Yennifer Batista | ECON | [address] | | | | | [place] | | | | | [address] | | + + + + + Care Team Providers + +------+ + | Care Chief Design Drafter Name | Role | Phone | + +------+ + | Ed Landis MD | PCP | | + +------+ + Encounter Details +--------+ + + + + | Date | Type | Department | Care Team | Description | +--------+ + + + + | 05/30/ | Transcribe | [facility]TE [facility]OSTOMO at [facility] | Transcribe | | | 2019 | Orders | [facility] [address] | Encounter, Provider, | | | | | [address] Mailcode: | MD [address] | | | | | [address] [facility] | [place] [address] | | | | | Health and Healing, | | | | | | [address] | | | | | | [place], [place] | | | | | | [address] | | | | | | [phone] | | | +--------+ + + + [...] | | | | | | [place] [address] | | | | | | [phone] | | | | | | | [...] | | | | | | [place] [address] | | | | | | [phone] | | | | | | | [...]
--- OUTSIDE RECORDS SUMMARY | ~2019-07-17 | XMS | Encounter Summary ---
Demographics + + + | Address | [address] | | | [place] [address] | + + + | Home Phone [...] + | Author | [facility] [place] c[facility] | + + + | Organization | [facility] [employer] (S[employer] [facility] | + + + | Address | Unknown | + + + | Phone | Unavailable | + + + Support + + + + + | Name | Relationship | Address | Phone | + + + + + | Yennifer Batista | ECON | [address] | | | | | [place] | | | | | [address] | | + + + + + Care Team Providers + +------+ + | Care Policy Analyst Name | Role | Phone | [...] [id number] | | | | | | [facility] | | | | | | [address] [place], [place] | | | | | | [address] | | | | | | [phone] | | | +--------+ + + + [...] RN | | IV | Positive; 06/30/18; 1220; | | | | | Discharge | [...] perfume, lotions or powder. Remove any nail swiss from at least one fingernail. Do not [...] Time: Someone from your surgeon's office or [facility] will provide you with information regarding [...] is after office hours, call the [facility] poacher operator at [phone] and ask them to page your doc [...] | | | | | | [place] [address] | | | | | | [phone] | | | | | | | | +--------+ + + + + | 11/10/ | Appointment | Procedural Care Unit | | | | 2019 | | | | | +--------+ + + + + | 11/10/ | Appointment | Gastroenterology | Efarin Mcmullen MD | | | 2019 | | | [address] | | | | | | [place] | | | | | | [place] [address] | | | | | | [phone] | | | | | | | | +--------+ + + + + documented as of this encounter Visit Diagnoses Not on filedocumented in this encounter"
--- OUTSIDE RECORDS SUMMARY | ~2019-07-17 | XMS | Encounter Summary ---
Demographics + + + | Address | [address] | | | [place] [address] | + + + | Home Phone [...] Author | [facility] | + + + | Organization | [facility] SIRS-Lab [facility] | + + + | Address | Unknown | + + + | Phone | Unavailable | + + + Support + + + + + | Name | Relationship | Address | Phone | + + + + + | Yennifer Batista | ECON | [address] | | | | | [place] | | | | | [address] | | + + + + + Care Team Providers + +------+ + | Care Mash Filter Press Operator Name | Role | Phone | + +------+ + | Ed Landis MD PCP | | + +------+ + Encounter Details +--------+ + + + + | Date | Type | Department | Care Team | Description | +--------+ + + + + | 01/22/ | Inside | [facility] | Noble Childs, | | | 2018 | Referral | [facility] [address] | [address] [facility] | | | | Order | [address] Mailcode: | Zeeshan Jauregui | | | | | [address] [place] for | [place], [place] | | | | | Health and Healing, | [address] | | | | | [place] [address] | [phone] | | | | | [place], [place] | | | | | | [address] | | | | | | [phone] | | | +--------+ + + + [...] | | | | | | [place] [address] | | | | | | [phone] | | | | | | | [...] | | | | | | [place] [address] | | | | | | [phone] | | | | | | | | +--------+ + + + + documented as of this encounter Results EGD (02/17/2018 2:39 PM PDT) + + | Specimen | + + | | + + + + + | Narrative | Performed At | + + + | MRN: | [facility] | | [id number] Date: 02/17/2018Patient Name: Franck Mares #: | ENDOSCOPY | | [id number] of : 1960CSN: [id number] Type: | | | Amb[facility]: [facility] 1Procedure: Upper GI | | | endoscopyIndications: DysphagiaProviders: | | | REMIGIO DRAKE MD (Doctor), OLIVER GOMEZ RN (Nurse), | | | TYE GLYNN (Solar Electric Practitioner), SANDRA MORALES, Solar Electric Practitioner | | | (Solar Electric Practitioner)Referring MD: | | | NOBLE CHILDS MDRequesting [...] | | | The Olympus GIF-[id number] Gastroscope #[id number] was | | | introduced through the [...]
--- OUTSIDE RECORDS SUMMARY | ~2019-07-17 | XMS | Encounter Summary ---
Demographics + + + | Address | [address] | | | [place] [address] | + + + | Home Phone [...] + + | Author | [facility] | + + + | Organization | [facility] PROVENTIX SYSTEM[employer] Science [facility] | + + + | Address | Unknown | + + + | Phone | Unavailable | + + + Support + + + + + | Name | Relationship | Address | Phone | + + + + + | Yennifer Batista | ECON | [address] | | | | | [place] | | | | | [address] | | + + + + + Care Team Providers + +------+ + | Care Structurer Name | Role | Phone | + [...] + + | 02/17/ | Hospital | [facility] GI PROCEDURE | Dar Dalton MD | | | 2018 | Encounter | [address] | [address] | | | | | Ave Mailcode: [facility] | [place], [place] | | | | | [facility] | [address] | | | | | Health and Healing, | [phone] | | | | | [place] [address] | | | | | | [place], [place] | | | | | | [address] | | | | | | [phone] | | | +--------+ + + + [...] Discharge Instructions Instructions Oliver Nguyễn RN - 02/17/2018[place] Care Instructions after EGD (Upper Endos copy) [...] hours or on weekends and holiday Hospital Insurance Follow Up Representative toll free [phone] ext. [phone] and have the GI doctor materials and corrosion engineer paged. The provider who performed your procedure [...] from jaja madden. PRE PROCEDURE NOTE: MR# [id number] Subjective: Franck Batista is a 57 y.o. [...] | | | | | [address] [place], | | | | | | [place] [address] | | | | | | [phone] | | | | | | | [...] | | | | | Shania Marinelli [place], | | | | | | [place] [address] | | | | | | [phone] | | | | | | | [...] + | MRN: | [facility] | | [id number] Date: 02/17/2018Patient Name: Franck Mares #: | ENDOSCOPY | | [id number] of : 1960CSN: [id number] Type: | | | AmbulatoryRoom: [facility] 1Procedure: Upper GI | | | endoscopyIndications: DysphagiaProviders: | | | DAR DALTON MD (Doctor), OLIVER NGUYỄN RN (Nurse), | | | TYE GLYNN (Tin Flipper), SANDRA MORALES, Tin Flipper | | | (Tin Flipper)Referring MD: | | | DAKSHA ALARCON MDRequesting [...] | | | The Olympus GIF-[id number] Gastroscope #[id number] was | | | introduced through the [...]
--- OUTSIDE RECORDS SUMMARY | ~2019-07-17 | XMS | Encounter Summary ---
Demographics + + + | Address | [address] | | | [place] [address] | + + + | Home Phone | | + + + | Preferred Language | Unknown | + + + | Marital Status | Single | + + + | Latter-Day Affiliation | ZEFERINO | + + + | Race | or | + + + | Ethnic Group | Not or | + + + Author + + + | Author | [facility] | + + + | Organization | [facility] [employer] [facility] | + + + | Address | Unknown | + + + | Phone | Unavailable | + + + Support + + + + + | Name | Relationship | Address | Phone | + + + + + | Yennifer Batista | ECON | [address] | | | | | [place] | | | | | [address] | | + + + + + Care Team Providers + +------+ + | Care Knife Sharpener Name | Role | Phone | + +------+ + | Ed Landis MD PCP | | + +------+ + Encounter Details +--------+ + + + + | Date | Type | Department | Care Team | Description | +--------+ + + + + | 02/17/ | Pharmacy | [facility] | | | | 2018 | Visit | & [facility] | | | | | | [address] | | | | | | Mailcode: [place] | | | | | | for Health and | | | | | | Healing, [address] | | | | | | [place], [place] | | | | | | [address] | | | | | | [phone] | | | +--------+ + + + [...] | | | | | | [place] [address] | | | | | | [phone] | | | | | | | [...] | | | | | | [place] [address] | | | | | | [phone] | | | | | | | | +--------+ + + + + documented as of this encounter Visit Diagnoses Not on filedocumented in this encounter"
--- OUTSIDE RECORDS SUMMARY | ~2019-07-17 | XMS | Encounter Summary ---
Demographics + + + | Address | [address] | | | [place] [address] | + + + | Home Phone [...] + | Author | [facility] [employer] [facility] | + + + | Organization | [facility] Mis [employer] [facility] | + + + | Address | Unknown | + + + | Phone | Unavailable | + + + Support + + + + + | Name | Relationship | Address | Phone | + + + + + | Yennifer Batista | ECON | [address] | | | | | [place] | | | | | [address] | | + + + + + Care Team Providers + +------+ + | Care Power Machine Operator Name | Role | Phone [...] | 01/30/ | Telephone | Urology at [facility] | Larissa Doe, | Treatment Planning | | 2013 | | [address] | Jesus Leiva MD [address] | (MRI needed) | | | | Mailcode: CH10U | [facility] | | | | | [facility] | [address] | | | | | and Healing, | [place] [address] | | | | | [facility] | [phone] | | | | | Floor [place], [place] | | | | | | [address] | | | | | | [phone] | | | +--------+ + + + [...] | | | | | Shania Marinelli [place], | | | | | | [place] [address] | | | | | | [phone] | | | | | | | [...] | | | | | Shania Marinelli [place], | | | | | | [place] [address] | | | | | | [phone] | | | | | | | | +--------+ + + + + documented as of this encounter Visit Diagnoses Not on filedocumented in this encounter"
--- OUTSIDE RECORDS SUMMARY | ~2019-07-17 | XMS | Encounter Summary ---
Demographics + + + | Address | [address] | | | [place] [address] | + + + | Home Phone [...] + | Author | [facility] [employer] [facility] | + + + | Organization | [facility] [employer] [facility] | + + + | Address | Unknown | + + + | Phone | Unavailable | + + + Support + + + + + | Name | Relationship | Address | Phone | + + + + + | Yennifer Batista | ECON | [address] | | | | | [place] | | | | | [address] | | + + + + + Care Team Providers + +------+ + | Care Mems Process Engineer Name | Role | Phone | + +------+ + | Sujatha Sullivan | PCP | | | CONVENIENCE RECYCLE CENTER TECH | | | + +------+ + Reason [...] | 06/02/ | Office | Urology at [facility] | Theresa Beyer, | Adrenal mass, left | | 2013 | Visit | [address] | [address] | ([facility]) (Primary Dx) | | | | Mailcode: CH10U | [place], [place] [address] | | | | | [place] for [facility] | [phone] | | | | | and [place], | | | | | | | | | | | | Floor [place], [place] | | | | | | [address] | | | | | | [phone] | | | +--------+---------+ + + + [...] of this diet are: Water, Helen lokesh, Lemon-shoshone-paiute soft drinks, Apple juice, Tea or c offee without creamer, Gatorade/sports drinks, Jell-O, Broth soups, Popsicle. 2. Laxative: These laxatives are liquids and are taken by mouth. They will stimulate bowel movements. Magnesium Citrate. Drink 1 bottle(s) of magnesium citrate at 12:00pm (or, the early aftern oon) the day before your surgery. Stay close to the bathroom. This is purchased over the Dispop. 3. Hibiclen's (This soap will be provided [...] speak to the Urology Resident who is math and science division chair. 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
--- OUTSIDE RECORDS SUMMARY | ~2019-07-17 | XMS | Encounter Summary ---
Demographics + + + | Address | [address] | | | [place] [address] | + + + | Home Phone [...] + | Author | [facility] | + + + | Organization | [facility] [employer] [facility] | + + + | Address | Unknown | + + + | Phone | Unavailable | + + + Support + + + + + | Name | Relationship | Address | Phone | + + + + + | Yennifer Batista | ECON | [address] | | | | | [place] | | | | | [address] | | + + + + + Care Team Providers + +------+ + | Care Hydro Sprayer Operator Name | Role | Phone | [...] + + | 08/11/ | Hospital | [facility] GI PROCEDURE | Frederic Kohler | | | 2017 | Encounter | [address] | MD Kiesha,MPH [address] | | | | | [address] Mailcode: [facility] | [address] | | | | | [facility] for | [place] [address] | | | | | Health and Healing, | [phone] | | | | | [place] [address] | | | | | | [place], [place] | | | | | | [address] | | | | | | [phone] | | | +--------+ + + + [...] encounter Discharge Instructions Instructions Kemar IvetJARROD - 08/11/2016[place] Care Instructions after EGD (Upper Endoscopy) You [...] hours or on weekends and holiday Hospital Manager R D toll free [phone] ext. [phone] and have the GI doctor electronic prepress system operator paged. The provider who performed your procedure [...] | | | | | Shania Marinelli [place], | | | | | | [place] [address] | | | | | | [phone] | | | | | | | [...] | | | | | Shania Marinelli [place], | | | | | | [place] [address] | | | | | | [phone] | | | | | | | [...] 08/11/2016. Frederic Kohler, | | | Sonam, Thao [facility] Division of Gastroenterology & Hepatology | | [...]
--- OUTSIDE RECORDS SUMMARY | ~2019-07-17 | XMS | Encounter Summary ---
Demographics + + + | Address | [address] | | | [place] [address] | + + + | Home Phone [...] | Author | [facility] | + + + | Organization | [facility] Opent[facility] | + + + | Address | Unknown | + + + | Phone | Unavailable | + + + Support + + + + + | Name | Relationship | Address | Phone | + + + + + | Yennifer Batista | ECON | [address] | | | | | [place] | | | | | [address] | | + + + + + Care Team Providers + +------+ + | Care Delivery Table Operator Name | Role | Phone | [...] 2017 | | General Surgery at | [facility] | | | | | PPV [address] [place], [place] | | | | | [address] | [address] | | | | | Mailcode: L223A | | | | | | Phsyiciperla Sargent | | | | | | [address] [place], [place] | | | | | | [address] | | | | | | [phone] | | | +--------+ + + + [...] | | | | | | [place] [address] | | | | | | [phone] | | | | | | | [...] | | | | | | [place] [address] | | | | | | [phone] | | | | | | | | +--------+ + + + + documented as of this encounter Visit Diagnoses Not on filedocumented in this encounter"
--- OUTSIDE RECORDS SUMMARY | ~2019-07-17 | XMS | Encounter Summary ---
Demographics + + + | Address | [address] | | | [place] [address] | + + + | Home Phone [...] + + | Author | [facility] | + + + | Organization | [facility] PicketReport[employer] [facility] | + + + | Address | Unknown | + + + | Phone | Unavailable | + + + Support + + + + + | Name | Relationship | Address | Phone | + + + + + | Yennifer Batista | ECON | [address] | | | | | [place] | | | | | [address] | | + + + + + Care Team Providers + +------+ + | Care Shop Firer/Fireman Name | Role | Phone | + +------+ + | Ed Landis MD PCP | | + +------+ + Encounter Details +--------+ + + + + | Date | Type | Department | Care Team | Description | +--------+ + + + + | 08/24/ | Telephone | Urology at [facility] | Theresa Beyer, | | | 2015 | | [address] | [address] [place] [address] | | | | | Mailcode: CH10U | [place] [address] | | | | | [facility] | [phone] | | | | | and [place], | | | | | | [facility] | | | | | | [place], [place] | | | | | | [address] | | | | | | [phone] | | | +--------+ + + + [...] | | | | | | [place] [address] | | | | | | [phone] | | | | | | | [...] | | | | | | [place] [address] | | | | | | [phone] | | | | | | | | +--------+ + + + + documented as of this encounter Visit Diagnoses Not on filedocumented in this encounter"
--- OUTSIDE RECORDS SUMMARY | ~2019-07-17 | XMS | Encounter Summary ---
Demographics + + + | Address | [address] | | | [place] [address] | + + + | Home Phone [...] + + + | Author | [facility] | + + + | Organization | [facility] Rachel Joyce [employer] [facility] | + + + | Address | Unknown | + + + | Phone | Unavailable | + + + Support + + + + + | Name | Relationship | Address | Phone | + + + + + | Yennifer Batista | ECON | [address] | | | | | [place] | | | | | [address] | | + + + + + Care Team Providers + +------+ + | Care Dehydrogenation Converter Operator Name | Role | Phone | [...] | | | | behavior of | [place] | [address] | | | | | adrenal | Urology [address] | | | | | gland | [address] | | | | | [address] [place], | [address] | | | | | | [place] [address] | [place], [place] | | | | | | Phone: | [address] Phone: | | | | | | [phone] | [phone] | | | | | | Fax: | Fax: | | | | | | [phone] | [phone] | +--------+ + + + + + Encounter Details +--------+---------+ + + + | Date | Type | Department | Care Team | Description | +--------+---------+ + + + | 01/26/ | Office | Urology at [facility] | Larissa Doe, | Adrenal mass (HCC) | | 2013 | Visit | [address] | Malu Leiva MD [address] | (Primary Dx) | | | | Mailcode: CH10U | [facility] | | | | | [facility] | [address] | | | | | and Healing, | [place] [address] | | | | | [facility] | [phone] | | | | | Floor [place], [place] | | | | | | [address] | | | | | | [phone] | | | +--------+---------+ + + + [...] Plan for excision . MALU KAUR MD geosciences associate professor of urology Ofe Pizarro MA - [...] 2020 | Encounter | | [address] | | | | | | [place], | | | | | | [place] [address] | | | | | | [phone] | | | | | | | [...] | | | | | Ellen Marinelli [place], | | | | | | [place] [address] | | | | | | [phone] | | | | | | | [...] | | | LABORATORY | | | [facility] | | | SERVICES, | | | [...] | + + + + + | [facility] | [address] | [place] [address] | | | SERVICES, CORE | ELLEN [...] [facility] | [address] [facility] | [place] [address] | | | OF CARE TESTS | | | | + + + + + documented in this encounter Visit Diagnoses + + | Diagnosis | + + | 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"
--- OUTSIDE RECORDS SUMMARY | ~2019-07-17 | XMS | Encounter Summary ---
Demographics + + + | Address | [address] | | | [place] [address] | + + + | Home Phone [...] | Author | [facility] [employer] [facility] | + + + | Organization | [facility] [employer]Sift [employer] [facility] | + + + | Address | Unknown | + + + | Phone | Unavailable | + + + Support + + + + + | Name | Relationship | Address | Phone | + + + + + | Yennifer Batista | ECON | [address] | | | | | [place] | | | | | [address] | | + + + + + Care Team Providers + +------+ + | Care Tank Setter Name | Role | Phone | + +------+ + | Ed Landis MD PCP | | + +------+ + Encounter Details +--------+ + + + + | Date | Type | Department | Care Team | Description | +--------+ + + + + | 01/11/ | Documentati | [facility] at [facility] | Yady, Estelita Procedure | | | 2018 | on | [facility] [address] | | | | | | [address] Mailcode: | | | | | | OC2L [facility] | | | | | | Health and Healing, | | | | | | [address] | | | | | | [place], [place] | | | | | | [address] | | | | | | [phone] | | | +--------+ + + + [...] | | | | | | [place] [address] | | | | | | [phone] | | | | | | | [...] | | | | | | [place] [address] | | | | | | [phone] | | | | | | | | +--------+ + + + + documented as of this encounter Visit Diagnoses Not on filedocumented in this encounter"
--- OUTSIDE RECORDS SUMMARY | ~2019-07-17 | XMS | Encounter Summary ---
Demographics + + + | Address | [address] | | | [place] [address] | + + + | Home Phone [...] | [facility] | + + + | Organization | [facility] | + + + | Address | Unknown | + + + | Phone | Unavailable | + + + Support + + + + + | Name | Relationship | Address | Phone | + + + + + | Yennifer Batista | ECON | [address] | | | | | [place] | | | | | [address] | | + + + + + Care Team Providers + +------+ + | Care Data Operations Director Name | Role | Phone | [...] | | | | period | [place] [address] | [address] Phone: | | | | | | Phone: | [phone] | | | | | | [phone] | Fax: | | | | | | Fax: | [phone] | | | | | | [phone] | | +--------+--------+ + + + + Encounter Details +--------+---------+ + + + | Date | Type | Department | Care Team | Description | +--------+---------+ + + + | 09/01/ | Office | Urology at [facility] | Theresa Beyer, | Adrenal mass (HCC) | | 2014 | Visit | [address] | MD [address] | (Primary Dx) | | | | Mailcode: [id number] | [place] [address] | | | | | [facility] | [phone] | | | | | and [place], | | | | | | Building | | | | | | Floor [place], [place] | | | | | | [address] | | | | | | [phone] | | | +--------+---------+ + + + [...] from all bl ack inked margins. Submitted: Mop Machine Operator The tumor is sampled for the Bio Marker study and the BioLibrary. Cassette Index: A1-3, sales representative business courses adrenal to mass A4-6, sales representative business courses intracapsular mass AMJ:tp My electronic signature indicates that I have personally reviewed al l diagnostic slides, the gross and/or microscopic portion of this report and formulated the final diagnosis. Rendering Diagnostician: Juanjo Covington M.D. Pathologist Electronically Signed 08/22/2014 4:58PM GLUCOSE, PLASMA (LAB) 08/18/2014 85 BUN, PLASMA (LAB) 08/18/2014 10 CREATININE PLASMA (LAB) 08/18/2014 0.80 EGFR - ENGLISH 08/18/2014 >60 EGFR NON -ENGLISH 08/18/2014 >60 SODIUM, PLASMA (LAB) 08/18/2014 140 [...] CREATININE PLASMA (LAB) 08/17/2014 0.89 EGFR - ENGLISH 08/17/2014 >60 EGFR NON -ENGLISH 08/17/2014 >60 SODIUM, PLASMA (LAB) 08/17/2014 139 [...] CREATININE PLASMA (LAB) 08/19/2014 0.72 EGFR - ENGLISH 08/19/2014 >60 EGFR NON -ENGLISH 08/19/2014 >60 SODIUM, PLASMA (LAB) 08/19/2014 136 [...] CREATININE PLASMA (LAB) 08/20/2014 0.63* EGFR - ENGLISH 08/20/2014 >60 EGFR NON -ENGLISH 08/20/2014 >60 SODIUM, PLASMA (LAB) 08/20/2014 134* [...] CREATININE PLASMA (LAB) 08/21/2014 0.57* EGFR - ENGLISH 08/21/2014 >60 EGFR NON -ENGLISH 08/21/2014 >60 SODIUM, PLASMA (LAB) 08/21/2014 133* [...] CREATININE PLASMA (LAB) 08/22/2014 0.66* EGFR - ENGLISH 08/22/2014 >60 EGFR NON -ENGLISH 08/22/2014 >60 SODIUM, PLASMA (LAB) 08/22/2014 139 [...] BEYER MD UROLOGY ONCOLOGY [address] Mail Code: Ch10u [facility] [address] [facility] [address] documented in this en counter Plan [...] | | | | | [place], | | | | | | [place] [address] | | | | | | [phone] | | | | | | | [...] | | | | | [place], | | | | | | [place] [address] | | | | | | [phone] | | | | | | | | +--------+ + + + + documented as of this encounter Visit Diagnoses + + | Diagnosis | + + | 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
--- OUTSIDE RECORDS SUMMARY | ~2019-07-17 | XMS | Encounter Summary ---
Demographics + + + | Address | [address] | | | [place] [address] | + + + | Home Phone [...] + | Author | [facility] | + + + | Organization | [facility] | + + + | Address | Unknown | + + + | Phone | Unavailable | + + + Support + + + + + | Name | Relationship | Address | Phone | + + + + + | Yennifer Batista | ECON | [address] | | | | | [place] | | | | | [address] | | + + + + + Care Team Providers + +------+ + | Care Fish Technologist Name | Role | Phone | + [...] [place] | (06/30/18) | | | | [facility] [address] [facility] | | | | | [place] | [place] [address] | | | | | Mailcode: [id number] | [phone] | | | | | [address] | | | | | | [address] [place], [place] | | | | | | [address] | | | | | | [phone] | | | +--------+ + + + [...] | | | | | Shania [place]elli [place], | | | | | | [place] [address] | | | | | | [phone] | | | | | | | [...] | | | | | Shania [place], | | | | | | [place] [address] | | | | | | [phone] | | | | | | | | +--------+ + + + + documented as of this encounter Visit Diagnoses Not on filedocumented in this encounter"
--- OUTSIDE RECORDS SUMMARY | ~2019-07-17 | XMS | Encounter Summary ---
Demographics + + + | Address | [address] | | | [place] [address] | + + + | Home Phone [...] + + | Author | [facility] | + + + | Organization | [facility] | + + + | Address | Unknown | + + + | Phone | Unavailable | + + + Support + + + + + | Name | Relationship | Address | Phone | + + + + + | Yennifer Batista | ECON | [address] | | | | | [place] | | | | | [address] | | + + + + + Care Team Providers + +------+ + | Care Director Network Development Name | Role | Phone | [...] Pharmacy | | | | | | [address] | | | | | | [place], [place] | | | | | | [address] | | | | | | [phone] | | | +--------+ + + + [...] | | | | | Shania [place], | | | | | | [place] [address] | | | | | | [phone] | | | | | | | | +--------+ + + + + | 11/10/ | Appointment | Procedural Care Unit | | | | 2019 | | | | | +--------+ + + + + | 11/10/ | Appointment | Gastroenterology | Efrian Mcmullen MD | | | 2019 | | | [address] | | | | | | [place], | | | | | | [place] [address] | | | | | | [phone] | | | | | | | | +--------+ + + + + documented as of this encounter Visit Diagnoses Not on filedocumented in this encounter"
--- OUTSIDE RECORDS SUMMARY | ~2019-07-17 | XMS | Encounter Summary ---
Demographics + + + | Address | [address] | | | [place] [address] | + + + | Home Phone [...] | Author | [facility] | + + + | Organization | [facility] [employer] [facility] | + + + | Address | Unknown | + + + | Phone | Unavailable | + + + Support + + + + + | Name | Relationship | Address | Phone | + + + + + | Yennifer Batista | ECON | [address] | | | | | [place] | | | | | [address] | | + + + + + Care Team Providers + +------+ + | Care Meter Supervisor Name | Role | Phone | [...] | 2017 | on | Center at [facility] [address] | [address] | | | | | [address] | [place], [place] | | | | | Mailcode: Mobile | [address] | | | | | [facility] and | [phone] | | | | | [facility] [address] | | | | | | [place], [place] | | | | | | [address] | | | | | | [phone] | | | +--------+ + + + [...] | | | | | | [place] [address] | | | | | | [phone] | | | | | | | [...] | | | | | | [place] [address] | | | | | | [phone] | | | | | | | | +--------+ + + + + documented as of this encounter Visit Diagnoses Not on filedocumented in this encounter"
--- OUTSIDE RECORDS SUMMARY | ~2019-07-17 | XMS | Encounter Summary ---
Demographics + + + | Address | [address] | | | [place] [address] | + + + | Home Phone [...] + | Author | [facility] | + + + | Organization | [facility] [facility] | + + + | Address | Unknown | + + + | Phone | Unavailable | + + + Support + + + + + | Name | Relationship | Address | Phone | + + + + + | Yennifer Batista | ECON | [address] | | | | | [place] | | | | | [address] | | + + + + + Care Team Providers + +------+ + | Care Ceramic Maker Demonstrator Name | Role | Phone | + [...] | | | | | Gastroesopha | [place], [place] | [facility] | | | | | geal reflux | [address] | [place] | | | | | disease with | Phone: | [address] | | | | | esophagitis | [phone] | [place], | | | | | | Fax: | [place] [address] | | | | | Adenomatous | [phone] | Phone: | | | | | polyp of | | [phone] | | | | | ascending | | Fax: | | | | | colon | | [phone] | | | | | Procedures | | | | | | | CONSULT TO | | | | | | | GI PROCEDURE | | | | | | | UNIT: EGD W | | | | | | | COLONOSCOPY | | | | | | | WY UPPER | | | | | | | GI | | | | | | | ENDOSCOPY,BI | | | | | | | OPSY WY | | | | | | | COLONOSCOPY, | | | | | | | FLEX, | | | | | | | W/BIOPSY WY | | | | | | | ANES UPR | | | | | | | LWR GI NDSC | | | | | | | PX WY UP GI | | | | | | | | | | | | | | ENDOSCOPY,BA | | | | | | | LL DIL,30MM | | | +--------+--------+ + + + + Encounter Details +--------+ + + + + | Date | Type | Department | Care Team | Description | +--------+ + + + + | 02/17/ | Assistant Portfolio Manager | Digestive Health | Dar Dalton MD | 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 (Primary | | | | [address] | [place], [place] | Dx); | | | | Mailcode: OC8D | [address] | Gastroesophageal | | | | [facility] | [phone] | reflux disease with | | | | and Healing, | | esophagitis; | | | | Building [address] | | 

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
--- OUTSIDE RECORDS SUMMARY | ~2019-07-17 | XMS | Encounter Summary ---
Demographics + + + | Address | [address] | | | [place] [address] | + + + | Home Phone | | + + + | Preferred Language | Unknown | + + + | Marital Status | Single | + + + | Oriental Orthodox Affiliation | ZEFERINO | + + + | Race | or | + + + | Ethnic Group | Not or | + + + Author + + + | Author | [facility] [place] [employer] [facility] | + + + | Organization | [facility] [employer] [facility] | + + + | Address | Unknown | + + + | Phone | Unavailable | + + + Support + + + + + | Name | Relationship | Address | Phone | + + + + + | Yennifer Batista | ECON | [address] | | | | | [place] | | | | | [address] | | + + + + + Care Team Providers + +------+ + | Care Elevators Inspector Name | Role | Phone | + +------+ + | Sujatha Sullivan | PCP | | | SAMPLE WORKER | | | + +------+ + Reason [...] | | | | | Arrhythmia | [place], | [address] | | | | | [place] (dyspnea | [place] | [address] | | | | | on | [address] | Building | | | | | exertion) | Phone: | [place], [place] | | | | | Procedures | [phone] | [address] | | | | | STRESS | Fax: | Phone: | | | | | ECHOCARDIOGR | [phone] | [phone] | | | | | AM, CONVERT [...] | | | | | | at [facility] [address] | | | | | | [address] Mailcode: | | | | | | [facility] | | | | | | Health and Healing, | | | | | | Building [address] | | | | | | [place], [place] | | | | | | [address] | | | | | | [phone] | | | +--------+ + + + [...] | | | | | | [place] [address] | | | | | | [phone] | | | | | | | [...] | | | | | | [place] [address] | | | | | | [phone] | | | | | | | [...]
--- OUTSIDE RECORDS SUMMARY | ~2019-07-17 | XMS | Encounter Summary ---
Demographics + + + | Address | [address] | | | [place] [address] | + + + | Home Phone [...] | [facility] [employer] [facility] | + + + | Organization | [facility] [employer] [facility] | + + + | Address | Unknown | + + + | Phone | Unavailable | + + + Support + + + + + | Name | Relationship | Address | Phone | + + + + + | Yennifer Segovia | ECON | [address] | | | | | [place] | | | | | [address] | | + + + + + Care Team Providers + +------+ + | Care Electrotyper Helper Name | Role | Phone | [...] + | 08/17/ | Hospital | [facility] [address] | Theresa Beyer, | | | 2015 - | Encounter | [address] | [address] [place] [address] | | | | | 12/UHS31 [facility] | [place] [address] | | | 08/22/ | | [facility], | [phone] | | | 2014 | | [place] [address] | | | | | | [phone] | | | +--------+ + + + [...] can cause constipation, so you may take pvue-wfl-nljzvoi stool softeners (Senok ot-S, Miralax, Colace) following [...] Physician: Theresa Beyer MD Patient: COREEN SEGOVIA [id number] 24H events/Subjective: МАРИНА overnight. Emesis x1 yesterday [...] is Theresa Beyer MD. PATRICIA PATTERSON MD [facility] 4A [address] [facility] 12/s31 [place] [address] Zay Sherman MD - 08/20/2014 4:54 AM PST Urology Progress Note Hospital Day: 3 Author: ZAY HERNANDEZ MD Attending Physician: Theresa Beyer MD Patient: COREEN SEGOVIA [id number] 24H events/Subjective: No acute events overnight. Pain [...] Resident - R5 Department of Urology Pager #[phone] Zay Sherman MD - 08/19/2014 7:49 AM PST Urology Progress Note Hospital Day: 2 Author: PATRICIA PATTERSON MD Attending Physician: Theresa Beyer MD Patient: COREEN SEGOVIA [id number] 24H events/Subjective: МАРИНА overnight. Pain is adequately [...] Caitlin Falk NP Adult Pain Service Pager [phone] Team Pager [phone] Caitlin Jiménez NP - 08/18/2014 8:02 AM [...] and summary of old medical records (source: [employer]), as summarized in the body of the note. CAITLIN FALK NP BILLING INFORMATION [facility] DEPARTMENT: [phone] Place of Service:- Inpatient Date of Service: 08/18/2014 [facility]: [id number] Suggested Modifier: None Suggested CPT: 96167 - Daily mgmt epidural/subarachnoid drug administration Prolonged service: n/a Counseling and Coordination: n/a Patricia Chappell MD - 08/18/2014 6:46 AM PST Urology Progress Note Hospital Day: 1 Author: PATRICIA PATTERSON MD Attending Physician: Theresa Beyer MD Patient: COREEN ALDANA [facility] [id number] 24H events/Subjective: Tachycardic overnight asymptomatic otherwise >> [...] is Theresa Beyer MD. PATRICIA PATTERSON MD [facility] [address]A [address] 12[address]s31 [place] [address] Zay Sherman MD - 08/17/2014 10:44 AM PST [facility] PRE-OPERATIVE HISTORY & PHYSICAL EXAM CHIEF [...] Procedure Laterality Date Jaw surgery 1986 [facility] Cyst removal-leg Right 1993 Lower [...] Resident - R5 Department of Urology Pager #[phone] documented in this encounter Plan of Treatment [...] | | | | | | [place] [address] | | | | | | [phone] | | | | | | | | +--------+ + + + + | 11/10/ | Appointment | Procedural Care Unit | | | | 2019 | | | | | +--------+ + + + + | 11/10/ | Appointment | Gastroenterology | Efrain cMmullen MD | | | 2019 | | | [address] | | | | | | [place] | | | | | | [place] [address] | | | | | | [phone] | | | | | | | [...] [facility] | [address] | [place] [address] | | | SERVICES, CORE | PARK [...] + + + + + | [facility] | [address] | [place] [address] | | | SERVICES, CORE | PARK [...] | + + + + + | [facility] | [address] | [place] [address] | | | SERVICES, CORE | PARK [...] [facility] | [address] | [place] [address] | | | SERVICES, CORE | PARK [...] [facility] | [address] | [place] [address] | | | SERVICES, CORE | ELLEN [...] + + + + + | [facility] | [address] | [place] [address] | | | SERVICES, CORE | PARK [...] | + + + + + | [facility] | [address] | [place] [address] | | | SERVICES, CORE | ELLEN [...] [facility] | [address] | [place] [address] | | | SERVICES, CAM | ELLEN [...] [facility] | [address] | [place] [address] | | | SERVICES, CORE | PARK [...] + + + + + | [facility] | [address] | [place] [address] | | | SERVICES, CORE | PARK [...] | + + + + + | [facility] | [address] | [place] [address] | | | SERVICES, CAM | ELLEN [...] | + + + + + | [facility] | [address] | [place] [address] | | | SERVICES, CORE | PARK [...] [facility] | [address] | [place] [address] | | | SERVICES, CORE | PARK [...] the MDRD equation recommended by the | [facility] | | National Kidney Disease Education Program. [...] + + + + + | [facility] | [address] | [place] [address] | | | CAM WALLS | ELLEN [...] + + + + + | [facility] | [address] | [place] [address] | | | SERVICES, CORE | PARK [...] | + + + + + | [facility] | [address] | [place] [address] | | | SERVICES, CORE | PARK [...] [facility] | [address] | [place] [address] | | | SERVICES, CORE | PARK [...] | + + + + + | [facility] | [address] [facility] | [place] [address] | | | SERVICES, CORE | ELLEN [...] [facility] | [address] | [place] [address] | | | CAM WALLS | ELLEN [...] MDRD equation recommended by the | [facility] | | National Kidney Disease [...] | + + + + + | [facility] | [address] | [place] [address] | | | SERVICES, CORE | ELLEN [...] [facility] | [address] | [place] [address] | | | SERVICES, CORE | ELLEN [...] [facility] | [address] | [place] [address] | | | SERVICES, CORE | PARK [...] + + + + + | [facility] | [address] | [place] [address] | | | KAVITA, CAM | ELLEN [...] [facility] | [address] | [place] [address] | | | SERVICES, CORE | ELLEN [...] DEPT OF | [address] | [place], [place] | | | CARDIOLOGY | [address] | [address] | | + + + + + [...] GONZALEZ | [address] | [place], [place] | | | ARUN BALBUENA OF RICKIE | [facility] | [address] | | | TESTS | | | [...] [facility] | [address] | [place], [place] | | | HILL, POINT OF CARE | [facility] | [address] | | | TESTS | | | [...] - [facility] | [address] | [place], [place] | | | SREE POINT OF CARE | [address] | [address] | | | TESTS | | | [...] GONZALEZ | [address] | [place], [place] | | | ARUN BALBUENA OF [facility] | [address] | [address] | | | TESTS | | | [...] [facility] | [address] | [place], [place] | | | SREE POINT OF CARE | [address] | [address] | | | TESTS | | | [...] + | [facility] | [address] [facility] [address] | [place], [place] | | | SREE POINT OF CARE | [address] | [address] | | | TESTS | | | [...] GONZALEZ | [address] | [place], [place] | | | SREE POINT OF CARE | [address] | [address] | | | TESTS | | | [...] [facility] | [address] | [place], [place] | | | SREE POINT OF CARE | [address] | [address] | | | TESTS | | | [...] + + + + | [facility] | [address] | [place] [address] | | | PATHOLOGY | [address] [...] PST | | | | | Starting [facility] 08/17/14 at 1232, | | | | | | | Until [facility] 08/17/14 at 1821, | | | [...] | | | | | dose on [facility] 08/17/14 at 1845, | | AM [...]
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
--- OUTSIDE RECORDS SUMMARY | ~2019-07-17 | XMS | Encounter Summary ---
Demographics + + + | Address | [address] | | | [place] [address] | + + + | Home Phone [...] | Author | [facility] [employer] [facility] | + + + | Organization | [facility] [employer] [facility] | + + + | Address | Unknown | + + + | Phone | Unavailable | + + + Support + + + + + | Name | Relationship | Address | Phone | + + + + + | Yennifer Batista | ECON | [address] | | | | | [place] | | | | | [address] | | + + + + + Care Team Providers + +------+ + | Care Clinical Pharmacologist Name | Role | Phone | + [...] Pharmacy | | | | | | [address] | | | | | | [place], [place] | | | | | | [address] | | | | | | [phone] | | | +--------+ + + + [...] | | | | | Shania Marinelli [place], | | | | | | [place] [address] | | | | | | [phone] | | | | | | | [...] | | | | | Shania Marinelli [place], | | | | | | [place] [address] | | | | | | [phone] | | | | | | | | +--------+ + + + + documented as of this encounter Visit Diagnoses Not on filedocumented in this encounter"
--- OUTSIDE RECORDS SUMMARY | ~2019-07-17 | XMS | Encounter Summary ---
Demographics + + + | Address | [address] | | | [place] [address] | + + + | Home Phone [...] + | Author | [facility] [employer] [facility] | + + + | Organization | [facility] [employer] [facility] | + + + | Address | Unknown | + + + | Phone | Unavailable | + + + Support + + + + + | Name | Relationship | Address | Phone | + + + + + | Yennifer Batista | ECON | [address] | | | | | [place] | | | | | [address] | | + + + + + Care Team Providers + +------+ + | Care Director Of Financial Planning Name | Role | Phone | + +------+ + | Ed Landis MD | PCP | | + +------+ + Encounter Details +--------+ + + + + | Date | Type | Department | Care Team | Description | +--------+ + + + + | 09/18/ | Inside | [facility] | Malinda Mason MD | | | 2017 | Referral | [address] | [address] | | | | Order | [address] Mailcode: | [place], [place] | | | | | [facility] | [address] | | | | | Health and Healing, | [phone] | | | | | Building [address] | | | | | | [place], [place] | | | | | | [address] | | | | | | [phone] | | | +--------+ + + + [...] | | | | | | [place] [address] | | | | | | [phone] | | | | | | | [...] | | | | | | [place] [address] | | | | | | [phone] | | | | | | | [...]
--- OUTSIDE RECORDS SUMMARY | ~2019-07-17 | XMS | Encounter Summary ---
Demographics + + + | Address | [address] | | | [place] [address] | + + + | Home Phone [...] + + | Author | [facility] | + + + | Organization | [facility] [employer] [facility] | + + + | Address | Unknown | + + + | Phone | Unavailable | + + + Support + + + + + | Name | Relationship | Address | Phone | + + + + + | Yennifer Batista | ECON | [address] | | | | | [place] | | | | | [address] | | + + + + + Care Team Providers + +------+ + | Care Yarn Dyer Name | Role | Phone | + [...] Planning; | | 2013 | | [address] | Jesus Leiva MD [address] | Treatment Planning | | | | Mailcode: CH10U | [facility] | (informed clinic | | | | [facility] | [address] | about status) | | | | and Healing, | [place] [address] | | | | | [facility] | [phone] | | | | | [place], [place] | | | | | | [address] | | | | | | [phone] | | | +--------+ + + + [...] | | | | | Shania Marinelli [place], | | | | | | [place] [address] | | | | | | [phone] | | | | | | | [...] | | | | | Shania Marinelli [place], | | | | | | [place] [address] | | | | | | [phone] | | | | | | | | +--------+ + + + + documented as of this encounter Visit Diagnoses Not on filedocumented in this encounter"
--- OUTSIDE RECORDS SUMMARY | ~2019-07-17 | XMS | Encounter Summary ---
Demographics + + + | Address | [address] | | | [place] [address] | + + + | Home Phone [...] | Author | [facility] | + + + | Organization | [facility] [employer] [facility] | + + + | Address | Unknown | + + + | Phone | Unavailable | + + + Support + + + + + | Name | Relationship | Address | Phone | + + + + + | Yennifer Batista | ECON | [address] | | | | | [place] | | | | | [address] | | + + + + + Care Team Providers + +------+ + | Care Route Contractor Name | Role | Phone | + +------+ + | Ed Landis MD PCP | | + +------+ + Encounter Details +--------+ + + + + | Date | Type | Department | Care Team | Description | +--------+ + + + + | 05/23/ | Documentati | [facility] at [facility] | Yady, Estelita Procedure | | | 2019 | on | [facility] [address] | | | | | | [address] Mailcode: | | | | | | [facility] | | | | | | Health and Healing, | | | | | | Building [address] | | | | | | [place], [place] | | | | | | [address] | | | | | | [phone] | | | +--------+ + + + [...] | | | | | | [place] [address] | | | | | | [phone] | | | | | | | [...] | | | | | | [place] [address] | | | | | | [phone] | | | | | | | | +--------+ + + + + documented as of this encounter Visit Diagnoses Not on filedocumented in this encounter"
--- OUTSIDE RECORDS SUMMARY | ~2019-07-17 | XMS | Encounter Summary ---
Demographics + + + | Address | [address] | | | [place] [address] | + + + | Home Phone [...] Author | [facility] | + + + | Organization | [facility] [employer] [facility] | + + + | Address | Unknown | + + + | Phone | Unavailable | + + + Support + + + + + | Name | Relationship | Address | Phone | + + + + + | Yennifer Batista | ECON | [address] | | | | | [place] | | | | | [address] | | + + + + + Care Team Providers + +------+ + | Care Seasonal Customer Service Associate Name | Role | Phone | [...] | 2016 | on | Center at [facility] [address] | MD Kiesha,MPH [address] | | | | | [address] | [address] | | | | | Mailcode: [place] | [place] [address] | | | | | [facility] and | [phone] | | | | | [facility] [address] | | | | | | [place], [place] | | | | | | [address] | | | | | | [phone] | | | +--------+ + + + [...] | | | | | | [place] [address] | | | | | | [phone] | | | | | | | [...] | | | | | | [place] [address] | | | | | | [phone] | | | | | | | | +--------+ + + + + documented as of this encounter Visit Diagnoses Not on filedocumented in this encounter"
--- OUTSIDE RECORDS SUMMARY | ~2019-07-17 | XMS | Encounter Summary ---
Demographics + + + | Address | [address] | | | [place] [address] | + + + | Home Phone [...] + + + | Author | [facility] | + + + | Organization | [facility] [employer] [facility] | + + + | Address | Unknown | + + + | Phone | Unavailable | + + + Support + + + + + | Name | Relationship | Address | Phone | + + + + + | Yennifer Batista | ECON | [address] | | | | | [place] | | | | | [address] | | + + + + + Care Team Providers + +------+ + | Care Pharmacy Services Representative Name | Role | Phone | [...] + + | 06/30/ | Hospital | [facility] [address] | Jomar Conrad MD | | | 2018 | Encounter | [address] | [address] [facility] | | | | | [facility] | [facility] | | | | | [place] | [place] [address] | | | | | ([facility]) | [phone] | | | | | [place], [place] | | | | | | [address] | | | | | | [phone] | | | +--------+ + + + [...] hours or on weekends and holiday [facility] Tutor toll free [phone] and have the GI doctor food operations manager paged. The provider who performed your procedure: [...] | | | | | Shania Marinelli [place], | | | | | | [place] [address] | | | | | | [phone] | | | | | | | | +--------+ + + + + | 11/10/ | Appointment | Procedural Care Unit | | | | 2019 | | | | | +--------+ + + + + | 11/10/ | Appointment | Gastroenterology | Efrain Mcmullen MD | | | 2019 | | | [address] | | | | | | [place], | | | | | | [place] [address] | | | | | | [phone] | | | | | | | [...] --+ | MRN: | [facility] | | [id number] Date: 06/30/2018Patient Name: Franck Mares #: | ENDOSCOPY | | [id number] of : 1960CSN: [id number] Type: | | | AmbulatoryRoom: GI 3Procedure: ColonoscopyIndications: | | | Screening for colorectal malignant neoplasmProviders: | | | RACHELLE JONES MD (Fellow), JOMAR CONRAD MD | | | (Doctor), CHIVO DONG RN (Nurse), | | | CHERRY MEJIA RN (Nurse), GENECREST | | | GEMINI (Gripper Attacher)Referring MD: REMIGIO DRAKE, MDRequesting | | | [...] physician, the nurse, the | | | kidney trimmer and the lift team technician. The procedure | | | was [...] portions.JOMAR | | | MD ANAMARIA06/30/2018 4:44:26 [facility] signed | | | electronically.RACHELLE JONES MDNumber of Addenda: 0Note Initiated | | | On: 06/30/2018 3:47 [facility] Letter to: ED LANDIS | | [...] --+ | MRN: | [facility] | | [id number] Date: 06/30/2018Patient Name: Franck Mares #: | ENDOSCOPY | | [id number] of : 1960CSN: [id number] Type: | | | AmbulatoryRoom: GI 3Procedure: [...] physician, | | | the nurse, the kidney trimmer and the | | | lift team technician. The procedure was verified | | [...] | | | The Olympus [id number] Endoscope #[id number] was introduced | | | through the [...] Initiated | | | On: 06/30/2018 3:45 [facility] Letter to: ED LANDIS | | [...]
--- OUTSIDE RECORDS SUMMARY | ~2019-07-17 | XMS | Encounter Summary ---
Demographics + + + | Address | [address] | | | [place] [address] | + + + | Home Phone [...] + + + | Author | [facility] [employer] [facility] | + + + | Organization | [facility] [employer] [facility] | + + + | Address | Unknown | + + + | Phone | Unavailable | + + + Support + + + + + | Name | Relationship | Address | Phone | + + + + + | Yennifer Batista | ECON | [address] | | | | | [place] | | | | | [address] | | + + + + + Care Team Providers + +------+ + | Care Fireman Helper Name | Role | Phone | [...] + + | 08/11/ | Hospital | [facility] PROC[facility] | Frederic Kohler | | | 2017 | Encounter | [address] | MD Kiesha,MPH [address] | | | | [address] Mailcode: [facility] | Lois Rsahid | | | | | [facility] [place] | [place] [address] | | | | | Health and Healing, | [phone] | | | | | [place] [address] | | | | | | [place], [place] | | | | | | [address] | | | | | | [phone] | | | +--------+ + + + [...] encounter Discharge Instructions Instructions Kemar IvetJARROD - 08/11/2016[place] Care Instructions after EGD (Upper Endoscopy) You [...] hours or on weekends and holiday [facility] [employer] toll free [phone]. [phone] and have the GI doctor stone grader paged. The provider who performed your procedure [...] | | | | | Shania Marinelli [place], | | | | | | [place] [address] | | | | | | [phone] | | | | | | | [...] | | | | | Shania Marinelli [place], | | | | | | [place] [address] | | | | | | [phone] | | | | | | | [...] Frederic Kohler, | | | Sonam, Thao [facility] Division of Gastroenterology & Hepatology | | [...]
--- OUTSIDE RECORDS SUMMARY | ~2019-07-17 | XMS | Encounter Summary ---
Demographics + + + | Address | [address] | | | [place] [address] | + + + | Home Phone [...] + + + | Author | [facility] | + + + | Organization | [facility] [employer] [facility] | + + + | Address | Unknown | + + + | Phone | Unavailable | + + + Support + + + + + | Name | Relationship | Address | Phone | + + + + + | Yennifer Batista | ECON | [address] | | | | | [place] | | | | | [address] | | + + + + + Care Team Providers + +------+ + | Care Doctor Of Audiology Name | Role | Phone | + [...] | 04/17/ | Telephone | [facility] at [facility] | Larissa Doe, | Treatment Planning; | | 2013 | | [address] | Jesus Leiva MD [address] | Treatment Planning | | | | Mailcode: CH10U | [facility] | (informed clinic | | | | [facility] | [address] | about status) | | | | and Healing, | [place] [address] | | | | | [facility] | [phone] | | | | | [place], [place] | | | | | | [address] | | | | | | [phone] | | | +--------+ + + + [...] | | | | | Shania Marinelli [place], | | | | | | [place] [address] | | | | | | [phone] | | | | | | | [...] | | | | | Shania Marinelli [place], | | | | | | [place] [address] | | | | | | [phone] | | | | | | | | +--------+ + + + + documented as of this encounter Visit Diagnoses Not on filedocumented in this encounter"
--- OUTSIDE RECORDS SUMMARY | ~2019-07-17 | XMS | Encounter Summary ---
Demographics + + + | Address | [address] | | | [place] [address] | + + + | Home Phone [...] Author + + + | Author | [facility] [facility] | + + + | Organization | [facility] [employer] [facility] | + + + | Address | Unknown | + + + | Phone | Unavailable | + + + Support + + + + + | Name | Relationship | Address | Phone | + + + + + | Yennifer Batista | ECON | [address] | | | | | [place] | | | | | [address] | | + + + + + Care Team Providers + +------+ + | Care Manager Green Name | Role | Phone | + [...] [place] | | | | | [facility] | Shania Marinelli [place], | | | | | Hospital Admitting | [place] [address] | | | | | Desk Located on the | [phone] | | | | | 9th floor | | | | | | [facility] [place] | [place], | | | | | [address] | [address] | | | | | | [address] | | | | | | [place], [place] | | | | | | [address] | | | | | | [phone] | | | | | | | [...] | | | | | | [place] [address] | | | | | | [phone] | | | | | | | [...] | | | | | | [place] [address] | | | | | | [phone] | | | | | | | [...] | | | | | Until [facility] 08/17/14 at 1318 | iology | | [...]
--- OUTSIDE RECORDS SUMMARY | ~2019-07-17 | XMS | Encounter Summary ---
Demographics + + + | Address | [address] | | | [place] [address] | + + + | Home Phone [...] Author + + + | Author | [facility] [employer] [facility] | + + + | Organization | [facility] [employer] [facility] | + + + | Address | Unknown | + + + | Phone | Unavailable | + + + Support + + + + + | Name | Relationship | Address | Phone | + + + + + | Yennifer Batista | ECON | [address] | | | | | [place] | | | | | [address] | | + + + + + Care Team Providers + +------+ + | Care House Sitter Name | Role | Phone | + [...] Refill Request | | 2018 | | [facility] [address] | [address] | | | | | [address] | [place], [place] | | | | | Mailcode: OC8D | [address] | | | | | [facility] | [phone] | | | | | and Healing, | | | | | | [address] | | | | | | [facility] [place] | | | | | | [address] | | | | | | [phone] | | | +--------+--------+ + + + [...] | | | | | | [place] [address] | | | | | | [phone] | | | | | | | [...] | | | | | | [place] [address] | | | | | | [phone] | | | | | | | | +--------+ + + + + documented as of this encounter Visit Diagnoses + + | Diagnosis | + + | Benign esophageal stricture - Primary Stricture and stenosis of esophagus | + + | Gastroesophageal reflux disease with esophagitis | + + documented in this encounter"
--- OUTSIDE RECORDS SUMMARY | ~2019-07-17 | XMS | Encounter Summary ---
Demographics + + + | Address | [address] | | | [place] [address] | + + + | Home Phone [...] | [facility] | + + + | Organization | [facility] [employer] [facility] | + + + | Address | Unknown | + + + | Phone | Unavailable | + + + Support + + + + + | Name | Relationship | Address | Phone | + + + + + | Yennifer Batista | ECON | [address] | | | | | [place] | | | | | [address] | | + + + + + Care Team Providers + +------+ + | Care Regional Project Manager Name | Role | Phone [...] | | | | GI PROCEDURE | [place], [place] | for Health | | | | | UNIT: EGD W | [address] | and Healing, | | | | | DILATION | | [address] | | | | | [place] [facility] | | [place], [place] | | | | | ENDOSCOPY,[place] | | [address] | | | | | [place] | | Phone: | | | | | GI | | [phone] | | | | | ENDOSCOPY,BA | | Fax: | | | | | LL DIL,30MM | | [phone] | +--------+--------+ + + + + Encounter Details +--------+ + + + + | Date | Type | Department | Care Team | Description | +--------+ + + + + | 07/31/ | Telephone | [facility] | Travis Maldonado MD | | | 2016 | | Center at [facility] [address] | | | | | | [address] | | | | | | Mailcode: Center | | | | | | for Health and | | | | | | Healing, [address] | | | | | | [place], [place] | | | | | | [address] | | | | | | [phone] | | | +--------+ + + + [...] | | | | | | [place] [address] | | | | | | [phone] | | | | | | | [...] | | | | | | [place] [address] | | | | | | [phone] | | | | | | | | +--------+ + + + + documented as of this encounter Visit Diagnoses + + | Diagnosis | + + | Esophageal stricture - Primary Stricture and stenosis of esophagus | + + documented in this encounter"
--- OUTSIDE RECORDS SUMMARY | ~2019-07-17 | XMS | Encounter Summary ---
Demographics + + + | Address | [address] | | | [place] [address] | + + + | Home Phone [...] + | Author | [facility] [employer] [facility] | + + + | Organization | [facility] [employer] [facility] | + + + | Address | Unknown | + + + | Phone | Unavailable | + + + Support + + + + + | Name | Relationship | Address | Phone | + + + + + | Yennifer Segovia | ECON | [address] | | | | | [place] | | | | | [address] | | + + + + + Care Team Providers + +------+ + | Care Assistant Department Manager Name | Role | Phone | [...] [address] | | | | | [place] | [address] [place], | | | [birth year] | | [address] | [place] [address] | | | 2017 | | [phone] | [phone] | | | | | | | [...] eventual ly enteric nutrition. Steve Martin MD COUNT INCLUDES THE [facility] DEPARTMENT OF SURGERY EMERGENCY GENERAL SURGERY Division [...] 14cm adrenal myelolipoma. He originally presented to [facility] in [place], [place] with a week of worsening abdominal [...] Mr Segovia was transferred to [facility] on 07/22 for further cares. On [...] CA19-9 further malignancy workup was performed: a [facility] CT showed nonspecific small pulmonary [...] kg/(m^2). Medications: Coreen Segovia Home Medication Instructions DARLIN:[id number] Printed on:08/01/16 8717 Medication Information acetaminophen 325 mg oral tablet [...] that I, or Nurse Practitioner or Physician Project Analyst working with me, had a face to face encounter with this patient on 08/01/2016 On behalf of Attending Physician: Mary Her MD I am ordering and certify that the following services are medically necessary [facility] Intermediate Evaluate and Treat I am ordering and certify that the following services are medically necessary [facility] Physical Therapy Evaluate and Treat I certify that the patient is homebound based on the following clinical findings Post-hospi jocelyn weakness, decreased strength and endurance, and tires easily with minimal exertion Other Discharge Orders and Instructions ACUTE CARE SURGERY/ EMERGENCY GENERAL SURGERY CLINIC FOLLOW UP Location: Physician [address]. [address] located on the [facility] campus across from the Hospital PAIN [...] resource once you are discharged. Call the [facility] guest experience representative for questions or concerns related to [...] up with Trauma Emergency General Surgery at [facility]. Go on 08/11/2016. Specialty: Trauma Center Contact information [address] [facility] [address] Mailcode: L223a [facility] [address] [address] [facility] [address] [address] Additional information: [facility] 2nd floor [address]. The [facility]'s [facility] is the building just past [facility]. Turn r ight immediately past the Pavilion. The entrance to the garage will be on your right just be yond the main entrance to the Pavilion. Differential Tester parking is available in the Physician's Pav[facility] [...] fellow with any questions. Faina Amaya, MS4 [facility] Pager: [phone] INTERVAL HISTORY: -- Received 1 unit pRBCs [...] questions. Gege Mcrae MD Gastroenterology Fellow Pager [phone] INTERVAL HISTORY: - EGD with dilation of [...] PM PST Pre Sedation Endoscopy Note: MR# [id number] Subjective: Coreen Segovia is a 55 y.o. [...] Date: 07/31/2016 Admission Date: 07/22/2016 COREEN SEGOVIA, [id number] Hospital Day #9 Procedures: 07/29: EGD, colonoscopy [...] Zay Espinoza MD Emergency General Surgery PGY1 [id number] Paola Andres 07/31/2016 8:26 AM PST Gastroenterology [...] fellow with any questions. Faina Monique, MS4 [facility] Pager: [phone] INTERVAL HISTORY: -- Esophageal biopsy negative for [...] Date: 07/30/2016 Admission Date: 07/22/2016 COREEN SEGOVIA, [id number] Hospital Day #8 Procedures: 07/29: EGD, colonoscopy [...] Zay Espinoza MD Emergency General Surgery PGY1 [phone] Associated attestation - Steve Martin MD - 07/30/2016 4:56 PM PST ATTENDING ADDENDUM: I saw, examined, and evaluated the patient. I agree with the findings and the plan of care as documented in the resident's/fellow s note, with additions/edits made to the note to r eflect my findings and clinical impression. Steve Martin MD [facility] [address] [place] [address] Daniel Sanchez MD - 07/29/2016 5:28 PM [...] fellow with any questions. Faina Amaya, MS4 [facility] Pager: [phone] Lester Coreen is a 55 year-old male [...] Date: 07/29/2016 Admission Date: 07/22/2016 COREEN SEGOVIA, [id number] Hospital Day #7 Subjective: GoLytely prep overnight, [...] Endo: No current issues PPX: lovenox Justin Cuveas M.D. Plastic Surgery Resident Pager [phone] aith, Justin Anderson MD - 07/28/2016 6:16 AM PST EGS Inpatient Daily Progress Note: Author: Justin Cuevas MD Attending Physician: Abdulaziz Redding MD Primary Care Provider: Ed Landis MD Note Date: 07/28/2016 Admission Date: 07/22/2016 COREEN SEGOVIA, [id number] Hospital Day #6 Subjective: No overnight events [...] Justin Cuevas M.D. Plastic Surgery Resident Pager [phone] Shira, Justin Anderson MD - 07/27/2016 8:52 AM PST EGS Inpatient Daily Progress Note: Author: Justin Cuevas MD Attending Physician: Abdulaziz Redding MD Primary Care Provider: Ed Landis MD Note Date: 07/27/2016 Admission Date: 07/22/2016 COREEN SEGOVIA, [id number] Hospital Day #5 Subjective: No overnight events [...] Justin Cuevas M.D. Plastic Surgery Resident Pager [phone] Justin Silva MD - 07/26/2016 12:16 PM PST EGS Inpatient Daily Progress Note: Author: Justin Cuevas MD Attending Physician: Abdulaziz Redding MD Primary Care Provider: Ed Landis MD Note Date: 07/26/2016 Admission Date: 07/22/2016 COREEN SEGOVIA, [id number] Hospital Day #4 Subjective: No overnight events [...] Justin Cuevas M.D. Plastic Surgery Resident Pager [phone] Justin Silva MD - 07/25/2016 6:06 AM PST EGS Inpatient Daily Progress Note: Author: Justin Cuevas MD Attending Physician: Abdulaziz Redding MD Primary Care Provider: Ed Landis MD Note Date: 07/25/2016 Admission Date: 07/22/2016 COREEN SEGOVIA, [id number] Hospital Day #3 Subjective: No overnight events [...] Justin Cuevas M.D. Plastic Surgery Resident Pager [phone] Justin Silva MD - 07/24/2016 8:00 AM PST EGS Inpatient Daily Progress Note: Author: Justin Cuevas MD Attending Physician: Abdulaziz Redding MD Primary Care Provider: Ed Landis MD Note Date: 07/24/2016 Admission Date: 07/22/2016 COREEN SEGOVIA, [id number] Hospital Day #2 Subjective: No overnight events [...] Justin Cuevas M.D. Plastic Surgery Resident Pager [phone] ustin Cuevas MD - 07/23/2016 10:39 AM PST Plastic Surgery Inpatient Daily Progress Note: Author: Justin Cuevas MD Attending Physician: Abdulaziz Redding MD Primary Care Provider: Ed Landis MD Note Date: 07/23/2016 Admission Date: 07/22/2016 COREEN SEGOVIA, [id number] Hospital Day #1 Subjective: No overnight events [...] Justin Cuevas M.D. Plastic Surgery Resident Pager [phone] documented in this encounter Plan of Treatment [...] | | | | | | [place] [address] | | | | | | [phone] | | | | | | | [...] | | | | | | [place] [address] | | | | | | [phone] | | | | | | | [...] | | | Bakis. | | | [place] | | | Erica, | | | [...] | | | Father | | | [place] | | | age | | | [...] | | | whawk | | | Nikolski | | | | | | Health [...] | | | s | | | direct care specialist | | | ior to | | [...] [facility] | [address] | [place] [address] | | | SERVICES, CORE | PARK [...] | + + + + + | [facility] | [address] | [place] [address] | | | SERVICES, CORE | SHANIA [...] + + | [facility] | [address] | [place] [address] | | | SERVICES, | [address] [...] LABORATORY | [address] | [place] [address] | | | SERVICES, | [address] [...] + + + + | PRODUCT | [id number] | | [facility] | | | UNIT [...] + + + + | EXPIRATION | [id number] | | [facility] | | | DATE [...] + + + + | BLOOD | [id number] | | [facility] | | | PRODUCT [...] [facility] | [address] | [place] [address] | | | SERVICES, | [address] [...] [facility] | [address] | [place] [address] | | | CAM WALLS | SHANIA [...] [facility] | [address] | [place] [address] | | | SERVICES, CORE | SHANIA [...] | | | LABORATORY | | | DUTCH | | | SERVICES, | | | [...] | + + + + + | [facility] | [address] | [place] [address] | | | SERVICES, CORE | SHANIA [...] | + + + + + | [email or web address] | [address] | [place] [address] | | | SERVICES, CAM | SHANIA [...] | | | LABORATORY | | | DUTCH | | | SERVICES, | | | [...] + + + | [facility] [employer] [facility] | [address] | [place] [address] | | | SERVICES, CORE | PARK [...] + + + | [facility] | [address] | [place] [address] | | | DIAGNOSTIC | [address] [...] [facility] | [address] | [place], [place] | | | SREE POINT OF CARE | [address] | [address] | | | TESTS | | | [...] | + + + + + | [email or web address] | [address] | [place] [address] | | | SERVICES, CORE | SHANIA [...] + | [facility] | [address] | [place] [address] | | | [place] | | | [...] [facility] | [address] | [place] [address] | | | SERVICES, CORE | PARK [...] | | | LABORATORY | | | DUTCH | | | SERVICES, | | | [...] | + + + + + | [facility] | [address] | [place] [address] | | | SERVICES, CORE | SHANIA [...] | + + + + + | [facility] | [address] | [place] [address] | | | SERVICES, CORE | PARK [...] | + + + + + | [facility] | [address] | [place] [address] | | | SERVICES, CORE | SHANIA [...] [facility] | [address] | [place], [place] | | | [place] OF CARE | [address] | [address] | | | TESTS | | | [...] | | cs determined by [facility] | | | | | | [...] | + + + + + | [facility] | [address] | [place] [address] | | | PATHOLOGY | [address] [...] [facility] | [address] | [place], [place] | | | SREE POINT OF CARE | [address] | [address] | | | TESTS | | | [...] G[facility] | [address] | [place], [place] | | | [place] | [address] | [address] | | | TESTS | | | [...] [facility] | [address] | [place], [place] | | | SREE POINT OF CARE | [address] | [address] | | | TESTS | | | [...] - CAR[facility] | [address] | [place], [place] | | | JERICHO POINT OF CARE | [address] | [address] | | | TESTS | | | [...] | + + + + + | [facility] | [address] | [place] [address] | | | SERVICES, CORE | SHANIA [...] | | | LABORATORY | | | DUTCH | | | SERVICES, | | | [...] HOSPITAL LAB[facility]ORY | [address] | [place] [address] | | | SERVICES, CORE | SHANIA [...] GONZALEZ | [address] | [place], [place] | | | SREE POINT OF CARE | [address] | [address] | | | TESTS | | | [...] CARLOS | [address] | [place], [place] | | | SREE POINT OF [facility] SA[facility] | [facility] | [address] | | | TESTS | | | [...] | [facility] | [address] | [place] [address] | | | SERVICES, CORE | PARK [...] | | | LABORATORY | | | DUTCH | | | SERVICES, | | | [...] | + + + + + | [facility] | [address] | [place] [address] | | | CAM WALLS | SHANIA [...] 60 - 99 mg/dL | [facility] - | | | GLUCOSE, | [...] GONZALEZ | [address] | [place], [place] | | | [place] OF CARE | [address] | [address] | | | TESTS | | | [...] CARLOS | [address] | [place], [place] | | | [place] | [address] | [address] | | | TESTS | | | [...] GONZALEZ | [address] | [place], [place] | | | SREE [facility] SAULT | [address] | [address] | | | TESTS | | | [...] an | | | | | | [id number] 109 | | | | | | [...] GONZALEZ | [address] | [place], [place] | | | SREE POINT OF CARE | [address] | [address] | | | TESTS | | | [...] [facility] | [address] | [place] [address] | | | SERVICES, CORE | PARK [...] | | | LABORATORY | | | DUTCH | | | SERVICES, | | | [...] | + + + + + | [facility] | [address] | [place] [address] | | | SERVICES, CORE | PARK [...] SHARATHAM | [address] | [place], [place] | | | [place] | [facility] | [address] | | | TESTS | | | [...] 60 - 99 mg/dL | [facility] - | | | GLUCOSE, | [...] GONZALEZ | [address] | [place], [place] | | | SREE POINT OF CARE | [address] | [address] | | | TESTS | | | | + + + + + MAGNESIUM, PLASMA (07/25/2016 3:56 PM PST) + +-------+ + + + | Component | Value | Ref Range | Performed | Pathologist | | | | | At | Signature | + +-------+ + + + | MAGNESIUM,P | 2.5 | 1.8 - 2.5 mg/dL | [facility] | | | LASMA | | | [...] | [facility] | [address] | [place] [address] | | | SERVICES, CORE | PARK [...] | | | LABORATORY | | | DUTCH | | | SERVICES, | | | [...] | + + + + + | [facility] | [address] | [place] [address] | | | SERVICES, CORE | SHANIA [...] | | | | | radiologist. A washer cutter | | | | | | film demonstrated a 12 | | | | | | [place]ic Dobbhoff | | | | | | [...] | | | | a 12 Fr [id number] | | | | | | Doppler [...] CARLOS | [address] | [place], [place] | | | [facility] [facility] SAULT | [address] | [address] | | | TESTS | | | [...] | + + + + + | [facility] | [address] | [place] [address] | | | SERVICES, CORE | SHANIA [...] | | | LABORATORY | | | DUTCH | | | SERVICES, | | | [...] | + + + + + | [facility] | [address] | [place] [address] | | | SERVICES, CORE | SHANIA [...] GONZALEZ | [address] | [place], [place] | | | [place] | [facility] | [address] | | | TESTS | | | [...] MAR[facility] | [address] | [place], [place] | | | SREE POINT OF CARE | [facility] | [address] | | | TESTS | | | [...] | [facility] | [address] | [place] [address] | | | SERVICES, CORE | PARK [...] | | | LABORATORY | | | DUTCH | | | SERVICES, | | | [...] | + + + + + | [facility] | [address] | [place] [address] | | | SERVICES, [facility] | [address] | | | + [...] + + + | [facility] | [address] | [place], [place] | | | [place] OF CARE | [address] | [address] | | | TESTS | | | [...] [facility] | [address] | [place] [address] | | | SERVICES, CORE | PARK [...] | | | LABORATORY | | | DUTCH | | | SERVICES, | | | [...] | + + + + + | [facility] | [address] | [place] [address] | | | CAM WALLS | SHANIA [...] GONZALEZ | [address] | [place], [place] | | | SREE POINT OF CARE | [address] | [address] | | | TESTS | | | [...] [facility] | [address] | [place] [id number] | | | SERVICES, CORE | SHANIA [...] [facility] | [address] | [place] [address] | | | SERVICES, CORE | PARK [...] | | | LABORATORY | | | DUTCH | | | SERVICES, | | | [...] | + + + + + | [facility] | [address] | [place] [address] | | | CAM WALLS | SHANIA [...] 60 - 99 mg/dL | [facility] - | | | GLUCOSE, | [...] GONZALEZ | [address] | [place], [place] | | | [place] OF CARE | [address] | [address] | | | TESTS | | | [...] + + | [facility] | [address] | [place] [address] | | | SERVICES, CORE | PARK [...] HOSPITAL LABORATORY | [address] | [place] [address] | | | CAM WALLS | SHANIA [...] 60 - 99 mg/dL | [facility] - | | | GLUCOSE, | [...] GONZALEZ | [address] | [place], [place] | | | [facility] [facility] | [address] | [address] | | | TESTS | | | [...] | + + + + + | [facility] | [address] | [place] [address] | | | SERVICES, CORE | PARK [...] | | | LABORATORY | | | DUTCH | | | SERVICES, | | | [...] | + + + + + | [facility] | [address] | [place] [address] | | | SERVICES, CORE | SHANIA [...] [facility] | [address] | [place], [place] | | | [place] OF CARE | [address] | [address] | | | TESTS | | | [...] | | | | | | FINDINGS: Spring Repairer Helper Hand KUB: The | | | | | [...] + +---------+ + + | [facility] DEPARTMENT OF | | | | | RADIOLOGY | | | | + +---------+ + + X-RAY PORTABLE CHEST 1 VIEW (07/23/2016 3:10 PM PST) + + + + + + | Component | Value | Ref Range | Performed | Pathologist | | | | | At | Signature | + + + + + + | X-RAY | EXAM: KS CHEST 1 VIEW | | | | [...] | | | | | signed / IK | | | | | | KEM [...] Indications:TPN Procedure location: | | | Unit:[facility] Room: 54 Providers: Attending name: [...] vein. Catheter lot number: | | | [id number] with a length of 55 cm was [...] [facility] | [address] | [place] [address] | | | SERVICES, CORE | PARK [...] [facility] | [address] | [place] [address] | | | SERVICES, CORE | SHANIA [...] | [facility] | [address] | [place] [address] | | | SERVICES, CORE | PARK [...] [facility] | [address] | [place] [address] | | | SERVICES, CORE | SHANIA [...] | | | LABORATORY | | | DUTCH | | | SERVICES, | | | [...] | + + + + + | [email or web address] | [address] | [place] [address] | | | SERVICES, CORE | SHANIA [...] | + + + + + | [email or web address] | [address] | [place] [address] | | | SERVICES, CORE | SHANIA [...] - | | | | | | [facility] | | + + + + + + + + | Specimen | + + | Blood - Blood | | (substance) | + + + + + + + | Performing | Address | City/State/Zipcode | Phone Number | | Organization | | | | + + + + + | [facility] | [address] | [place] [address] | | | [facility] [...] [facility] | [address] | [place] [address] | | | SERVICES, CORE | PARK [...] [facility] | [address] | [place] [address] | | | SERVICES, CORE | PARK [...] | | | LABORATORY | | | DUTCH | | | SERVICES, | | | [...] | + + + + + | [facility] | [address] | [place] [address] | | | SERVICES, CORE | SHANIA [...] 1:41 | | | | | [facility] 07/31/16 at 1341, | | PM PST | | | | | Until [facility] 07/31/16 at 1341 | | | | [...] | | | | | 1 dose, [facility] 07/24/16 at 2045 | | | | [...] PST | | | | | [facility] 07/31/16 at 1337, | | | | | | | Until [facility] 07/31/16 at 1337 | | | | | | + +-------+ +------+---+---+ +---+---+ | | | +---+---+ + +-------+ +-------+---+---+ | loratadine (CLARITIN) tablet 10 | Given | 08/01/19 | 10 mg | | | | mg 10 mg, oral, DAILY, First | | 17 8:24 | | | | | dose on [facility] 07/27/16 at 1500, Until | | AM [...] | | | | | NEEDED, [facility] 07/24/16 at | | | | | [...] 3:28 | | | | | dose, [facility] 07/24/16 at 0300 | | AM PST [...]
--- OUTSIDE RECORDS SUMMARY | ~2019-07-17 | XMS | Encounter Summary ---
Demographics + + + | Address | [address] | | | [place] [address] | + + + | Home Phone [...] + + | Author | [facility] | + + + | Organization | [facility] | + + + | Address | Unknown | + + + | Phone | Unavailable | + + + Support + + + + + | Name | Relationship | Address | Phone | + + + + + | Yennifer Batista | ECON | [address] | | | | | [place] | | | | | [address] | | + + + + + Care Team Providers + +------+ + | Care Pack Press Operator Name | Role | Phone [...] Pharmacy | | | | | | [address] | | | | | | [place], [place] | | | | | | [address] | | | | | | [phone] | | | +--------+ + + + [...] | | | | | [address] [place], | | | | | | [place] [address] | | | | | | [phone] | | | | | | | [...] | | | | | [address] [place], | | | | | | [place] [address] | | | | | | [phone] | | | | | | | | +--------+ + + + + documented as of this encounter Visit Diagnoses Not on filedocumented in this encounter"
[~2019-07-17 09:51] MED LIST changes: +MIRALAX17 GM PO; +NORCO 5-325 TA1 EACH PO; +PROMETHAZINE HC25 M1 PO
--- OUTSIDE RECORDS SUMMARY | 2019-07-17 09:54 | XMS ---
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 \T\middot;\T\nbsp; PLEASE REFER PATIENT TO [facility] FOR NON EMERGENT MEDICAL NEEDS. \T\middot;\ T\nbsp; [facility] CAN SEE PATIENTS SAME DAY FOR APTS IF PATIENT CALLS FIRST THING IN THE MORNING. 11/11/2017 [facility] - Patient was recently seen by PCP on 11/02/17. Pain is currently being managed by PCP Dr Landis. - Recently prescribed 10 hydrocodone 5/325 on 11/02/17 by PCP. - Patient currently has a referral to a GI doctor at [facility] since patient does not want to be [...] ED please contact Community Health WorkerIsabelle at . These are guidelines and the provider should exercise clinical judgment when providing care. E.D. VISIT COUNT (12 MO.) 3 [facility] TOTAL 3 NOTE: Visits indicate total known visits. ED/UCC VISIT TRACKING (12 MO.) 07/17/2019 09:52 [facility] [place] TYPE: Emergency COMPLAINT: - STOMACH PAIN, VOMITING 04/11/2019 12:[facility] [place] TYPE: Emergency COMPLAINT: - ABD PAIN, VOMITING DIAGNOSES: - Vomiting, unspecified - Epigastric pain - Allergy to other foods - Other group home (current) drug therapy - Allergy status to analgesic agent status 01/31/2019 11:[address] [facility] [place] TYPE: Emergency COMPLAINT: - ABD PAIN DIAGNOSES: - Allergy status to analgesic agent status - Spinal muscular atrophy, unspecified - Allergy to other foods - Anemia, unspecified - Unspecified abdominal pain - Acute gastritis without bleeding INPATIENT VISIT TRACKING (12 MO.) No inpatient visits to display in this time frame [email or web address]
[2019-07-17] MEDS ORDERED: OMEPRAZOLE20 MG PO (11:55)
== END 2019-07-17 12:09 | disposition home or self-care (01) ==
LOC: ED 09:51
DX: K29.00 Acute gastritis without bleeding (principal); Z88.8 Allergy status to other drugs, medicaments and biological substances; Z91.018 Allergy to other foods; Z79.899 Other long term (current) drug therapy
CPT/HCPCS: 80053; 83690; 85025; 96361; 96374; 96375; 99284-25; C9113; J1170; J2405; J7030

== ENCOUNTER 2019-09-06 19:05 | Inpatient (IN) | payer OTHER ==
[~2019-09-06] VITALS: Ht 165.1 cm; Wt 41.5 kg
--- OUTSIDE RECORDS SUMMARY | 2019-09-06 19:08 | XMS ---
PreManage Notification: COREEN SEGOIVA Security Sales Project Administrator Events No recent Security Events currently on file CRITERIA MET - Group Notification - [facility] Guidelines - PDMP CARE PROVIDERS SHEILA BRAY Nurse Practitioner 02/01/2019-Current PHONE: [phone] Name Unknown Clinic/Center 07/18/2019-Current PHONE: [phone] DR GARNETT [facility] 08/21/2016-Current PHONE: [phone] Care Guidelines exist for the following facilities: [facility] ( 10/19/2017 ) Care History Medical/Surgical 02/01/2019 [facility] \T\middot;\T\nbsp; PATIENT- TJHAWK ELIGIBLE \T\middot;\T\nbsp; PLEASE REFER PATIENT TO [facility] FOR NON EMERGENT MEDICAL NEEDS. \T\middot;\ T\nbsp; [facility] CAN SEE PATIENTS SAME DAY FOR APTS IF PATIENT CALLS FIRST THING IN THE MORNING. 11/11/2017 [facility] - Patient was recently seen by PCP on 11/02/17. Pain is currently being managed by PCP Dr Landis. - Recently prescribed 10 hydrocodone 5/325 on 11/02/17 by PCP. - Patient currently has a referral to a GI doctor at [facility] since patient does not want to be [...] ED please contact Community Health WorkerIsabelle at [phone]. These are guidelines and the provider should exercise clinical judgment when providing care. E.D. VISIT COUNT (12 MO.) 4 [facility] TOTAL 4 NOTE: Visits indicate total known visits. 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 [place] TYPE: Emergency COMPLAINT: - ABD PAIN DIAGNOSES: - Allergy status to analgesic agent status - Spinal muscular atrophy, unspecified - Allergy to other foods - Anemia, unspecified - Unspecified abdominal pain - Acute gastritis without bleeding INPATIENT VISIT TRACKING (12 MO.) No inpatient visits to display in this time frame [email or web address]
[2019-09-07] MEDS ORDERED: MAGNESIUM100 MG PO (01:25)
[2019-09-07] MEDS ORDERED: VENTOLIN HFA18 GM (01:25)
--- NOTE | 2019-09-07 01:35 | NUR ---
PT ADMITTED TO ROOM 124 FROM ED. A/O, SLID SELF ACROSS INDEPENDENTLY. BROTHER ACCOMPANIED PT TO ROOM.
--- NOTE | 2019-09-07 02:20 | NUR ---
TWO ATTEMPTS MADE TO PLACE NASOGASTRIC TUBE PER MD ORDER UNSUCCESSFUL. PT ANXIOUS AND STATES THAT HIS "THROAT CLOSES WITH PAIN OR WHEN I BECOME ANXIOUS". DR. SAMANO CALLED. NEW TELEPHONE ORDERS RECEIVED FOR PRN ANTI-ANXIETY VERIFIED WITH READ BACK METHOD.
--- NOTE | 2019-09-07 02:30 | NUR ---
PT MEDICATED WITH PRN. INPATIENT CODER IN TO PLACE NG TUBE SUCCESSFULLY. PT WILLIAM WELL. CHEST X-RAY ORDERED TO VERIFY PLACEMENT.
--- NOTE | 2019-09-07 03:30 | NUR ---
NGT PLACEMENT CONFIRMED BY XRAY. NGT TO LOW INTERMITTENT WALL SUCTION. 1,980 ML IMMEDIATE RETURN OF LIGHT GREEN STOMACH CONTENTS. PT STATES "I FEEL LESS BLOATED ALREADY". EDUCATION REGARDING NGT PROVIDED, PT VERBALIZES UNDERSTANDING.
--- NOTE | 2019-09-07 05:00 | NUR ---
EYES CLOSED RESP EVEN AND UNLABORED. HAS REQUIRED NO PAIN MEDICATION NOR NAUSEA MEDICATION SINCE ADMISSION
--- NOTE | 2019-09-07 05:50 | NUR ---
VS AND I&O COMPLETE. PT STATES ABD PAIN IS "SETTLING DOWN". DENIES PRN AT THIS TIME. DENIES NAUSEA. NGT PATENT DRAINING LIGHT GREEN STOMACH CONTENTS. IVF INFUSING. PT DENIES OTHER NEEDS AT THIS TIME. CALL LIGHT IN REACH.
--- NOTE | 2019-09-07 07:35 | NUR ---
REPORT RECIEVED FROM TELEVISION PICTURE TUBE REBUILDER LUCINDA GARAY
--- NOTE | 2019-09-07 07:45 | NUR ---
MORNING ASSESSMENT DONE. PATIENT DENIES PAIN. BOWEL TONES ARE HYPOACTIVE IN ALL QUADRANTS. PATIENT IS RESTING IN BED WITH IVF INFUSING.
--- NOTE | 2019-09-07 09:59 | NUR ---
DR. SAMANO IN TO SEE PATIENT.
--- NOTE | 2019-09-07 10:01 | NUR ---
CURTAINS ARE OPEN, ENCOURAGED PATIENT TO GET UP TO CHAIR.
--- NOTE | 2019-09-07 10:19 | NUR ---
PATIENT UP TO CHAIR, GIVEN ICE CHIPS.
--- NOTE | 2019-09-07 10:25 | NUR ---
PATIENT UP TO CHAIR FROM BED WITH ONE PERSON ASSIST. HANDS AND FACE WASHED. CALL BUTTON IN REACH. NO OTHER NEEDS AT THIS TIME.
--- NOTE | 2019-09-07 10:35 | CONS ---
[facility] [address], [place] [address] Signed DATE OF CONSULTATION: 09/06/2019 REQUESTING PHYSICIAN: Kota Negron MD. 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 HISTORY OF PRESENT ILLNESS: This very thin 58-year-old [place] man is known to me from the past. I am unable to find his records in my office, but I do recall having seen him in the past for what was considered to be a SMA syndrome. He has had longstanding cachexia for quite some time. 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 A few years ago, he was seen for findings consistent with SMA syndrome and been diagnosed with same elsewhere. Due to his cachectic body habitus, consideration for operation was made including a duodenal-jejunal bypass, however, the patient did not follow through with planned operation and has remained variable in his abilities to tolerate oral intake. Late in the day today, he was pulling or lifting some propane tanks and had the sudden onset of severe abdominal pain, generalized through the abdomen. He said a white light was experienced, the pain was so severe. He presented to emergency room where he was evaluated by Dr. Negron. A CT scan was performed, which showed a markedly dilated stomach and proximal duodenum with a cutoff sign at the SMA, closer to ligament of Treitz than general and was considered by the interpreting radiologist, Dr. Alston, to have possible internal hernia with obstruction. Unfortunately, Dr. Alston is unaware of his prior medical history and he was advised regarding his prior likely established diagnosis of SMA syndrome (obstructive duodenum related to superior mesenteric artery) and was known to have said that the findings would be consistent with that as well. A GI contrast study was recommended by Dr. Alston, which has been initiated by Dr. Negron. At present, the patient has mild abdominal pain. He recounts that he was in the [facility] for over 30 days, 4 months ago for reasons that are not disclosed. He also notes that he while in the intermediate was diagnosed with hepatitis C. The patient does have distant history of IV drug use, none in recent times. He says he has had transfusion in the past as well. Electronically Signed By: RAMON SAMANO MD 09/07/19 1035 PATIENT NAME: COREEN SEGOVIA CONSULTATION DATE OF : 64 REPORT #: [id number] PHYSICIAN: RAMON SAMANO MD PCP: SHEILA BRAY NEON ELECTRICIAN-Abbie REPORT IS CONFIDENTIAL AND NOT TO BE RELEASED WITHOUT AUTHORIZATION [facility] [address], [place] [address] Signed At present, the patient has no nausea or vomiting. His pain seems to be minimal if any. REVIEW OF SYSTEMS: He denies any hematemesis or blood per rectum. He has no shortness of breath, no precordial chest pain. PHYSICAL EXAMINATION: GENERAL: Markedly Cachectic [place] man, who is alert and oriented, nontoxic. HEENT: Mucous membranes reasonably moist. Trachea is midline. CHEST: Shows normal respiratory excursion. Pulses regular. ABDOMEN: Nondistended and flat. He has very minimal abdominal wall body fat. Palpation reveals mild tenderness throughout. He has multi-letter tattoo across the abdomen. EXTREMITIES: Show no edema. IMAGING DATA: Review of his CT scan is undertaken showing a markedly dilated stomach with fluid. Liver appears normal without signs of nodularity. Both left and right kidneys are normal. There is distal decompression of the small bowel. Note, this is a non-GI contrast study, but with intravenous contrast. 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 He has been non compliant with follow through for definitive treatment, and although I generally remember working with him in 2017 I do not have my notes or records from the past readily available. However, he was considered for operation several years ago and was essentially lost to follow up when he declined operative intervention. It is hard to explain the sudden onset of his discomfort today with his manipulation of propane tanks. He does not appear to be systemically toxic at this time. Lab studies show a white count of only 5.9 with hematocrit of 30.9, platelets 541,000. Chem profile shows sodium of 131 and potassium of 3.4, but other electrolytes normal and creatinine normal at 0.85. Liver enzymes are normal. His urinalysis is essentially normal, specific gravity 1.024. Review of his CT scans from the past back to 2018 showed widely patent visceral arteries and an aortomesenteric angle which was normal at 56 degrees in 2018 with no dilation of the stomach or proximal duodenum and no evidence on CT scan of superior mesenteric artery syndrome at that time. Gastric wall thickening of the cardia was noted. A CT scan of the abdomen performed on April 11, 2019, with oral contrast demonstrated a small collection of fluid and gas in the superior margin of the 3rd portion of the duodenum with characteristics consistent with duodenal diverticulum at that time. It is likely that the previous etiology of possible superior mesenteric artery syndrome was not known to the radiologist at that time. Electronically Signed By: RAMON SAMANO MD 09/07/19 1035 PATIENT NAME: COREEN SEGOVIA CONSULTATION DATE OF : 64 REPORT #: [id number] PHYSICIAN: RAMON SAMANO MD PCP: SHEILA BRAY REPORT IS CONFIDENTIAL AND NOT TO BE RELEASED WITHOUT AUTHORIZATION [facility] [address], [place] [address] Signed His findings this evening are suggestive of possible chronic superior mesenteric artery syndrome and a GI contrast study was initiated by Dr. Negron to ascertain that there is no sign of internal hernia as was postulated by the interpreting radiologist this evening. If superior mesenteric artery syndrome (mesenteric vascular occlusion of duodenum) were in fact to be present, a reasonable option would be duodenojejunostomy for decompression. There has been some ambiguity of this diagnosis over time from what I gather. The operation has not been undertaken, though it was at one time strongly considered. Review of my hospital notes from August 2016, at which time he was admitted for several days, reveals that he had a nasoenteric feeding tube that had been placed at [facility] under fluoroscopic guidance which had been occluded and could not be salvaged and therefore was removed. He underwent a feeding jejunostomy tube placement by me at that time and was advanced on enteral tube feeding at 60 mL a day. He was to be seen in followup after nutritional resuscitation to consider operative management of presumed superior mesenteric artery syndrome, but he declined to proceed with it, ultimately removing the feeding tube and never returning for further evaluation and treatment. At present, his symptoms are similar to the past. He does have a fair amount of stool in the colon as well. It appears that his problem may be an exacerbation of his chronic problem and now found also to have concurrent hepatitis C based on his history related to his intake medical examination at the intermediate several months ago. Likely, his hepatitis C (if true) was contracted during illicit drug use in the past, which is no longer an issue. At this point, enteral contrast is administered to ascertain there is no sign of internal herniation (which is quite unlikely in my opinion). Re-evaluation for possible definitive surgical management of his problem would be a consideration in the future. We will await the results of the small bowel followthrough that has been initiated in the emergency room before declaring a definitive plan at this time. Ramon Samano MD /MODL /[id number] Electronically Signed By: RAMON SAMANO MD 09/07/19 1035 PATIENT NAME: COREEN SEGOVIA CONSULTATION DATE OF : 64 REPORT #: [id number] PHYSICIAN: RAMON SAMANO MD PCP: SHEILA BRAY REPORT IS CONFIDENTIAL AND NOT TO BE RELEASED WITHOUT AUTHORIZATION [facility] [address], [place] [address] Signed cc: [facility] Kota Negron MD Copies: [facility] KOTA NEGRON MD ~ Electronically Signed By: RAMON SAMANO MD 09/07/19 1035 PATIENT NAME: COREEN SEGOVIA CONSULTATION DATE OF : 64 REPORT #: [id number] PHYSICIAN: RAMON SAMANO MD PCP: SHEILA BRAY REPORT IS CONFIDENTIAL AND NOT TO BE RELEASED WITHOUT AUTHORIZATION
--- NOTE | 2019-09-07 11:42 | NUR ---
ENVIRONMENTAL MAINTENANCE WORKER IN WITH PATIENT. MAG RIDER INFUSING FOR 1 HOUR.
--- NOTE | 2019-09-07 12:30 | NUR ---
Pt sleeping in chair. Does not awakened to voice. Will return later.
--- NOTE | 2019-09-07 13:06 | NUR ---
PATIENT GIVEN PO BARIUM VIA NG TUBE, SUCTION IS OFF. PATIENT GIVEN IV ATIVAN TO HELP KEEP HIM CALM WHILE AWAITING PORTABLE X-RAY.
--- NOTE | 2019-09-07 14:35 | NUR ---
PATIENT GIVEN MORE BARIUM VIA NG, REPOSITIONED IN BED. PATIENT IS RESTING, NOT CURRENTLY NAUSEATED. PATIENT ENDORSES THAT HE DOES NOT NEED TO VOID AT THIS TIME.
--- NOTE | 2019-09-07 15:44 | NUR ---
PATIENT UP TO VOID IN BATHROOM, BACK TO BED, BED ALARM IS ON.
--- NOTE | 2019-09-07 19:27 | NUR ---
BEDSIDE REPORT RECEIVED FROM JARROD LLANES. pt RESTING IN BED WITH EYES CLOSED. BREATHING UNLABORED. NGT CLAMPED. IVF INFUSING WNL ORDERED. URINAL EMPTIED. CALL LIGHT IN REACH. BED ALARM ON.
--- NOTE | 2019-09-07 19:34 | NUR ---
PHONE CALL TO IMAGING, PER IMAGING OKAY TO TURN NGT TO SUCTION. IMAGING PLANNED FOR AM.
--- NOTE | 2019-09-07 19:36 | NUR ---
Provided pt with warm blankets.
--- NOTE | 2019-09-07 20:10 | NUR ---
pt ASSESSMENT COMPLETE. NEW IV RIGHT FOREARM. IVF INFUSING WNL. NGT TO LOW INT SUCTION. pt DENIES NAUSEA. RATES PAIN 4/10 IN [place]. PRN MEDICATION ADMINISTERED. BOWEL TONES ACTIVE, ABD SOFT, NON DISTENDED. pt ORIENTED, DROWSY. C/O CRAMPING IN LEGS OCCASIONALLY "YOHANA I'M COLD". WARM BLANKETS PROVIDED. CALL LIGHT IN REACH. BED ALARM ON. IV RIGHT AC INFILTRATED, D/C'D WNL.
--- NOTE | 2019-09-07 20:25 | NUR ---
BED ALARM SOUNDING. pt SHIFTING IN BED DUE TO LEG CRAMPS. ASSISTED pt TO REPSOITION. BED ALARM ON. CALL LIGHT IN REACH.
--- NOTE | 2019-09-07 20:27 | NUR ---
ROUNDED CHARGE. PATIENT IS RESTING IN BED. VITALS TAKEN AND RECORDED. INTAKE AND OUPUT RECORDED. PATIENT DENIES ANY NEEDS. CALL LIGHT IN REQACH.
--- NOTE | 2019-09-07 22:30 | NUR ---
CHECKED ON pt. RESTING IN BED WITH EYES CLOSED. BREATHING UNLABORED. NGT TO LOW INT SUCTION. IVF INFUSING WNL.
--- NOTE | 2019-09-08 01:31 | NUR ---
CHECKED ON pt. RESTING IN BED WITH EYES CLOSED. RR 16. NGT TO WALL SUCTION. IVF INFUSING. BED ALARM ON.
--- NOTE | 2019-09-08 04:00 | NUR ---
CHECKED ON pt, RESTING IN BED WITH EYES CLOSED. NGT TO INT SUCTION. LIGHTS OFF IN ROOM.
--- NOTE | 2019-09-08 05:40 | NUR ---
pt AWAKENS TO VOICE. VSS. NGT TO LOW INT SUCTION, GREENISH BROWN DRAINAGE. pt DENIES TOILETING NEEDS. ASSESSMENT COMPLETE, BOWEL TONES HYPOACTIVE. ABD SOFT. DENIES NAUSEA, PAIN. REQUESTING TO SLEEP. CALL LIGHT IN REACH. IVF INFUSING WNL ORDERED.
--- NOTE | 2019-09-08 05:55 | NUR ---
pt RESTED WELL THROUGHOUT SHIFT. NGT TO LOW INT SUCTION, 250 MLS GREENISH/BROWN DRAINAGE THIS SHIFT. DENIES NAUSEA. PRN PAIN MEDICATION X 1. BOWEL TONES HYPOACTIVE. BED ALARM IN PLACE, pt NOT IMPULSIVE THIS SHIFT. NEW IV SITE LEFT FORARM, IVF INFUSING WNL ORDERED.
--- NOTE | 2019-09-08 07:10 | NUR ---
PT RESTING SUPINE IN BED EYES CLOSED AND RESPIRATIONS EVEN AND UNLABORED ON RA. CALL LIGHT AND H2O IN REACH. NG TO LIWS. PT APPEARS TO BE SLEEPING COMFORTABLY. BEDSIDE REPORT RECEIVED FROM JARROD LO.
--- NOTE | 2019-09-08 09:02 | NUR ---
PT RESTING SUPINE IN BED ALERT AND ORIENTED. CALL LIGHT AND H2O IN REACH. PT ASSESSMENT COMPLETED AND AM MEDS ADMINISTERED INCLUDING PRN IV TORADOL FOR DISCOMFORT TO TO BACK OF THROAT AND PER PT REQUEST. PT REQEUSTS HOME DOSE OF LORATADINE BE ORDERED. WILL DISCUSS THIS WITH DR. SAMANO. NO FURTHER NEEDS OR CONCERNS VOICED.
[2019-09-08] MEDS ORDERED: NUTRITIONAL DR420 GM (09:46)
--- NOTE | 2019-09-08 09:48 | NUR ---
Med rec completed.
--- NOTE | 2019-09-08 12:38 | NUR ---
PT RESTING SUPINE IN BED, PT ALERT AND ORIENTED. CALL LIGHT AND H2O IN REACH. PT REPORTS SORE THROAT SO PRN PO LOZENGE ADMINISTERED PER PT REQUEST. NO FURTHER NEEDS OR CONCERNS VOICED.
--- NOTE | 2019-09-08 13:00 | NUR ---
Spoke with Franck. He is resting in bed with NG in place. Pt states he has not been well since 2010, at that time he weighed 200 # and had a tumor removed. States he has continued to lose weight and decline since 2011. States he has a "superior artery around his stomach" and needs to have further surgery. States he thinks Dr. Alvarado will transfer him to [place] for further surgery.
--- NOTE | 2019-09-08 13:45 | NUR ---
PT SITTING UP IN BED, WATCHING TV. PT IS FRIENDLY PLEASANT TO VISIT WITH. PT IS STRUGGLING SOME WITH WHAT IS TO HAPPEN NEXT WITH HIS CARE. PT WONDERED HOW LONG FOR NG TUBE? HE ALSO MENTIONED THAT STAFF TOLD HIM HE WOULD HAVE P.T. IT HAS NOT HAPPENED YET. HE SOMETIMES HAS CRAMPS IN HIS HANDS, AND FEET AND HAD QUESTIONS REGARDING THIS. LET PT KNOW I WOULD FOLLOW UP WITH JARROD ARELLANO, WHICH I DID. GAVE BLESSING, WILL FOLLOW NEEDED
--- NOTE | 2019-09-08 13:50 | NUR ---
IN TO SEE PATIENT. PATIENT TOLERATED 500MLS OF CLEAR LIQUID FLUIDS WITH NO OUTPUT THROUGH NG TUBE. NG TUBE CLAMPED AT THIS TIME AND PT ASSISTED UP WITH ONLY SBA AND PT AMBULATED TWO FULL LAPS AROUND NURSING STATIONS. PT WAS INFORMED THAT NG TUBE MAY END UP BEING REMOVED SOON IF HE CONTINUES TO HAVE NO OUTPUT BUT THAT THIS WOULD ULTIMATLEY BE DETERMINED BY DR SAMANO. PT BACK TO BED, DENIES PAIN, SOB OR NAUSEA. NGT BACK TO LIWS. CALL LIGHT AND APPLE JUICE AND H2O IN REACH. NO FURTHER NEEDS OR CONCERNS VOICED.
--- NOTE | 2019-09-08 15:20 | NUR ---
Updated Dr. Alvarado, pt thinks he is being transferred for further surgery. Dr. Alvarado, Henry Rn, and myself to the room. Dr Alvarado spoke with pt and updated he does not need to go to [place] for surgery he can have surgery here. He will need to improve he dietary status. Pt states this would be better as he would rather stay in town. Dr. Alvarado informed he will have dietary consult. Pt will not have surgery until health improveds.Pt. states understanding.
--- NOTE | 2019-09-08 19:20 | NUR ---
SHIFT REPORT RECEIVED FROM TIFFGAEMILY ARELLANO AT BEDSIDE. PT RESTING IN BED, APPEARS COMFORTABLE. DENIES NEEDS. IV FLUIDS INFUSING AT 85MLS/HR, SITE WNL. COMMISSARY AGENT IN ROOM TO BRING COFFEE TO PT PER PT REQUEST. CALL LIGHT IN REACH.
--- NOTE | 2019-09-08 21:04 | NUR ---
VITALS AND I&OS DONE AND CHARTED. FRESH ICE WATER , APPLE JUICE AND BEEF BROTH. CLEANED UP THE BATHROOM AFTER HIS SHOWER. BEDSIDE TABLE AND CALL LIGHT IN REACH.
--- NOTE | 2019-09-08 21:50 | NUR ---
ASSESSMENT COMPLETE, SCHEDULED MEDS GIVEN (SEE EMAR). PRN TORADOL ASLO GIVEN FOR 4-5/10 PAIN R/T HEADACHE. IV FLUIDS INFUSING, SITE WNL. FLUSHES EASILY. NO FURTHER NEEDS AT THIS TIME, SCD'S ON. CALL LIGHT IN REACH.
--- NOTE | 2019-09-08 23:56 | NUR ---
ROUNDING ON PT. PT AWAKE AND RESTING IN BED AND PLAYING ON PHONE. REGULAR APPLE JUICE AND ENSURE CLEAR APPLE JUICE PROVIDED. PT STATES REGARDING ENSURE, "IT'S PRETTY GOOD AND TASTES LIKE REGULAR JUICE". NO FURTHER NEEDS, CALL LIGHT IN REACH.
--- NOTE | 2019-09-09 01:10 | NUR ---
NEW BAG IV FLUIDS HUNG AND INFUSING AT 85MLS/HR, SITE WNL. URINAL EMPTIED, BOARD UPDATED. NO FURTHER NEEDS. CALL LIGHT IN REACH.
--- NOTE | 2019-09-09 03:58 | NUR ---
ASSESSMENT COMPLETE, PT AWAKE AND PLAYING ON PHONE. NO NEW CHANGES OR CONCERNS, PT DENIES PAIN AND NAUSEA. IV FLUIDS INFUSING PER MD ORDERS. SCD'S ON, NO FURTHER NEEDS, CALL LIGHT IN REACH.
--- NOTE | 2019-09-09 04:23 | NUR ---
PT HAD UNEVENTFUL NIGHT, SLEPT ON AND OFF. USES CALL LIGHT APPROPERIATELY. IV FLUIDS INFUSING, SITE WNL. CLEAR LIQUID DIET, TOLERATING WELL. NO NAUSEA, ENCOURAGE USE OF CLEAR ENSURE FOR NUTRITION. SBA WITH AMBULATION, SCD'S ON.
--- NOTE | 2019-09-09 07:10 | NUR ---
PT RESTING IN SEMIFOWLERS POSITION IN BED, EYES CLOSED AND RESPIRATIONS EVEN AND UNLABORED. CALL LIGHT AND H2O IN REACH. REPORT RECEIVED FROM JARROD SIMMS.
--- NOTE | 2019-09-09 08:43 | NUR ---
PT RESTING SUPINE IN BED ALERT AND ORIENTED. AM MED ADMINISTERED. PT ASSESSMENT COMPLETED. PT DENIES NAUSEA, PAIN OR SOB. CALL LIGHT AND H2O IN REACH. NO NEEDS OR CONCERNS VOICED.
--- NOTE | 2019-09-09 11:35 | NUR ---
PT RESTING IN SEMIFOWLERS POSITION IN BED ALERT AND ORIENTED AND TEXTING ON HIS CELL PHONE. PT DENIES NEEDS OR CONCERNS. CALL LIGHT AND H2O IN REACH.
--- NOTE | 2019-09-09 12:47 | NUR ---
PT LAYING IN BED, ALERT AND ORIENTED. NG TUBE IS OUT, PT FEELS "LIKE A NEW MAN"! UPBEAT ATTITUDE, SAID HE WOULD LIKE TO VISIT WITH POLE SHAVER HELPER TO HELP HIS HEALTH AT HOME. LET NAVEEN KNOW, GOOD VISIT WITH PT. HE THANKED ME FOR COMING BY. GAVE BLESSING, WILL FOLLOW NEEDED
--- NOTE | 2019-09-09 14:31 | NUR ---
PT SITTING UP IN BED, TOLERATED TWO BOWLS OF SOUP, AND 500MLS OF FLUIDS. PT STATES HE IS PASSING GAS, DENIES NAUSEA SOB OR PAIN. PT ASSESSMENT COMPLETED. CALL LIGHT AND H2O IN REACH. PT DENIES NEEDS OR CONCERNS AT THIS TIME.
--- NOTE | 2019-09-09 15:57 | NUR ---
PT UP AMBULATING IN HALLS WITH ENTRY LEVEL WEB DEVELOPER. PT APPEARS TO HAVE STEADY GAIT AND TOLERATING EXERCISE WELL.
--- NOTE | 2019-09-09 17:06 | NUR ---
PT REPORTS NASUEA STATES "THAT COFFEE WAS TOO ACIDIC IT GAVE ME NAUSEA". PRN IV ZOFRAN ADMINISTERED PER PT REQUEST. PT DENIES FURTHER NEEDS OR CONCERNS VOICED.
--- NOTE | 2019-09-10 21:07 | DS ---
[facility] [address], [place] [address] Signed ADMISSION DATE: 09/07/2019 DISCHARGE DATE: 09/09/2019 REASON FOR ADMISSION: This 59-year-old [place] man is admitted for bowel obstruction. HISTORY: He is well known to me from the past in 2017 for similar malady. He has been always considered to have probable superior mesenteric artery syndrome (duodenal obstruction related to obstruction from the superior mesenteric artery complex). Indeed, I saw him in 2017 and had placed a feeding jejunostomy anticipating improvement of his overall nutritional status before embarking upon a probable duodenojejunal bypass. He had been seen at [facility] previous to that and a nasoenteric feeding tube had been placed, but it became dislodged and nonfunctional. The patient was lost to followup as he refused to proceed with our planned operation and since that time has been of variable ability to tolerate oral intake. He has had other social issues including incarceration and in the retirement for over a month and the past several months as well. He presented to the emergency room where he was evaluated by Dr. Snowden with recurrent symptoms of abdominal pain and a CT scan, which showed marked dilation of the stomach and duodenum with a cutoff sign in the region of the ligament of Treitz. It is notable he has undergone left adrenal resection at [facility] in the past and the obstructive process may not in fact be at the superior mesenteric artery but rather adhesions related to operation from the past. In any case, he was admitted for further evaluation and care. PERTINENT PHYSICAL EXAMINATION: GENERAL: Extremely cachectic [place] man, who is alert and oriented and nontoxic. His prealbumin was measured at 16.1 (better than expected). HEENT: Mucous membranes were moist. Trachea midline. CHEST: Clear. HEART: Regular without murmur. ABDOMEN: Nondistended and flat. He had minimal abdominal wall body fat. He had mild tenderness throughout the abdomen. HOSPITAL COURSE: A nasogastric tube was difficult to place, but was accomplished ultimately draining nearly 2 L of fluid from the stomach. He had marked improvement of his obstructive type Electronically Signed By: RAMON SAMANO MD 09/10/19 2107 PATIENT NAME: COREEN SEGOVIA DISCHARGE SUMMARY DATE OF : 64 REPORT #: [id number] PHYSICIAN: RAMON SAMANO MD PCP: SHEILA BRAY REPORT IS CONFIDENTIAL AND NOT TO BE RELEASED WITHOUT AUTHORIZATION [facility] [address], [place] [address] Signed symptoms. Review of his x-rays was undertaken with Dr. Vivar, the radiologist. Given the particulars of his findings, the SMA syndrome was somewhat doubted as there appeared to be some obstructed loops well distal in the small bowel. On that basis, he underwent a small-bowel follow-through. This included primarily barium. Contrast did pass through the bowel entirely since the stomach had been decompressed and showed no distinct sign of obstructive process. Nasogastric tube was removed and he was advanced on a liquid diet and ultimately a full diet, which he tolerated well. Imaging studies did not necessarily confirm SMA syndrome or even any distinct obstructive process. However, I think it is highly probable he has at minimum adhesion-related obstruction, though SMA syndrome may still be possible. A dietary consultation was undertaken with Basilia Callaway RD, and counseling was undertaken to emphasize intake of high-quality food. I have recommended that he avoid solid food necessarily as it is likely to precipitate obstruction whatever its underlying cause is. He has had obstructive symptoms for several years now and he is at a position of cooperation in allowing for resolution of problem from the surgical approach if possible. He is discharged to home with the recommendation to maintain a high-calorie, high-protein, high-fat diet, dominantly by liquids or semi solids so as to avoid intercurrent obstructive symptoms. We will see him back in the office in 2-3 weeks and likely repeat his prealbumin studies. He has previously proven noncompliant as regards to home enteral tube feeds and of course a feeding gastrostomy would be of no benefit considering the proximal obstructive process, he suffers recurrently. Home TPN though a consideration is impractical in the current situation and I am hopeful and optimistic that exploration can be undertaken once his nutritional status is improved to allow for definitive resolution of his problem. DISCHARGE DIAGNOSES: 1. Chronic recurrent proximal small bowel obstruction, superior mesenteric artery syndrome versus adhesion related intermittent bowel obstruction. 2. Cachexia/inanition. 3. Episodic reflux symptoms. DISCHARGE MEDICATIONS: 1. Bupropion 150 mg tablet b.i.d. for depression. 2. Claritin 10 mg p.o. daily as needed. 3. Omeprazole 20 mg p.o. daily. 4. MiraLAX 17 g p.o. daily. 5. Magnesium amino acid chelate, magnesium 100 mg tablet p.o. every other day for Electronically Signed By: RAMON SAMANO MD 09/10/19 2106 PATIENT NAME: COREEN SEGOVIA DISCHARGE SUMMARY DATE OF : 64 REPORT #: [id number] PHYSICIAN: RAMON SAMANO MD PCP: SHEILA BRAY REPORT IS CONFIDENTIAL AND NOT TO BE RELEASED WITHOUT AUTHORIZATION [address] [place] [address] Signed cramping. 6. Protein supplement (nutritional drink) daily. MD EVON Hernandez/KAYLEEN /[id number] cc: CECILE Green MD Copies: KOTA SNOWDEN MD ~ Electronically Signed By: RAMON SAMANO MD 09/10/19 2107 PATIENT NAME: COREEN SEGOVIA DISCHARGE SUMMARY DATE OF : 64 REPORT #: [id number] PHYSICIAN: RAMON SAMANO MD PCP: SHEILA BRAY REPORT IS CONFIDENTIAL AND NOT TO BE RELEASED WITHOUT AUTHORIZATION
== END 2019-09-09 18:10 | disposition home or self-care (01) | DRG 394 ==
LOC: ED 19:05 → MS 19:06
PROVIDERS: ADMIT Surgery
DX: K55.1 Chronic vascular disorders of intestine (principal); K56.50 Intestinal adhesions [bands], unspecified as to partial versus complete obstruction; R64 Cachexia; Z68.1 Body mass index [BMI] 19.9 or less, adult; B19.20 Unspecified viral hepatitis C without hepatic coma; K21.9 Gastro-esophageal reflux disease without esophagitis; Z79.899 Other long term (current) drug therapy; Z88.8 Allergy status to other drugs, medicaments and biological substances
CPT/HCPCS: 36415; 71045; 74177; 74250; 80053; 81001; 83690; 83735; 84134; 85025; 85610; 96375; 99285-25; G0378; J1170; J1885; J2060; J2405; J3475; J3480; J7060; J7121

== ENCOUNTER 2019-12-15 13:10 | Emergency (ER) | payer OTHER ==
[~2019-12-15] VITALS: Ht 165.1 cm; Wt 46.5 kg
--- OUTSIDE RECORDS SUMMARY | ~2019-12-15 | XMS | Encounter Summary ---
Demographics + + + | Address | [address] | | | [place] [address] | + + + | Home Phone | | + + + | Preferred Language | Unknown | + + + | Marital Status | Single | + + + | Cheondoism Affiliation | ZEFERINO | + + + | Race | or | + + + | Ethnic Group | Not or | + + + Author + + + | Author | [facility] | + + + | Organization | [facility] [facility] | + + + | Address | Unknown | + + + | Phone | Unavailable | + + + Support + + + + + | Name | Relationship | Address | Phone | + + + + + | Yennifer Batista | ECON | [address] | | | | | [place] | | | | | [address] | | + + + + + Care Team Providers + +------+ + | Care Circulation Manager Name | Role | Phone | + +------+ + | Leidy Grullon MD | PCP | | + +------+ + Encounter Details +--------+ + + + + | Date | Type | Department | Care Team | Description | +--------+ + + + + | 04/03/ | Anesthesia | [address] Op [id number] | Rich Melvin, | | | 2013 | Event | [address] | [address] | | | | | [address] [facility] | [place] | | | | | Hospital Admitting | [place], [place] | | | | | Desk Located on the | [address] | | | | | 9th floor | [phone] | | | | | [place], [place] | | | | | | [address] | | | +--------+ + + + + Anesthesia Record + + + + + | Procedure Name | Responsible | Anesthesia Start | Anesthesia Stop Time | | | Anesthesiologist | Time | | + + + + + | NEPHRECTOMY, | | | | | POSSIBLE | | | | | ADRENALECTOMY on | | | | | 11/17/2014 by | | | | | Theresa Beyer MD | | | | | at [facility] (canceled) | | | | | (canceled) | | | | + + + + + + + | No events on file. | + + +------+ | Meds | +------+ + + + No medications | on file. | + + + + + | No agents on file. | + + + + | No blood administrations on file. | + + + + | No LDAs on file. | + + documented in this encounter Social History + +-------+ +--------+------+ | Tobacco Use | Types | Packs/Day | Years | Date | | | | | Used | | + +-------+ +--------+------+ | Former Smoker | | | | | + +-------+ +--------+------+ + +---+---+---+ | Smokeless Tobacco: | | [...]
--- OUTSIDE RECORDS SUMMARY | ~2019-12-15 | XMS | Encounter Summary ---
Demographics + + + | Address | [address] | | | [place] [address] | + + + | Home Phone | | + + + | Preferred Language | Unknown | + + + | Marital Status | Single | + + + | Caodaism Affiliation | ZEFERINO | + + + | Race | or | + + + | Ethnic Group | Not or | + + + Author + + + | Author | [facility] | + + + | Organization | [facility] [employer] [facility] | + + + | Address | Unknown | + + + | Phone | Unavailable | + + + Support + + + + + | Name | Relationship | Address | Phone | + + + + + | Yennifer Batista | ECON | [address] | | | | | [place] | | | | | [address] | | + + + + + Care Team Providers + +------+ + | Care Risk Management Specialist Name | Role | Phone | + +------+ + | Ed Landis MD PCP | | + +------+ + Encounter Details +--------+ + + + + | Date | Type | Department | Care Team | Description | +--------+ + + + + | 01/22/ | Inside | [facility] | Daksha Childs, | | | 2018 | Referral | [facility] [address] | [address] | | | | Order [address] Mailcode: | [place] | | | | | [address] [place] [facility] | [place], [place] | | | | | [facility], | [address] | | | | | [place] [address] | [phone] | | | | | [place], [place] | | | | | | [address] | | | | | | [phone] | | | +--------+ + + + [...] on filedocumented as of this encounter Results EGD (02/17/2018 2:39 PM PDT) + + | Specimen | + + | | + + + + + | Narrative | Performed At | + + + | MRN: | [facility] | | [id number] Date: 02/17/2018Patient Name: Franck Mares #: | ENDOSCOPY | | [id number] of : 1960CSN: [id number] Type: | | | Ambulatory[facility] 1Procedure: Upper GI | | | endoscopyIndications: DysphagiaProviders: | | | REMIGIO DRAKE MD (Doctor), OLIVER GOMEZ RN (Nurse), | | | TYE GLYNN (Veterinary Nurse), SANDRA MORALES, Veterinary Nurse | | | (Veterinary Nurse)Referring MD: | | | DAKSHA CHILDS MDRequesting Provider: Medicines: | | | Midazolam 5 mg IV, Fentanyl 100 micrograms IV, Lidocaine | | | sprayComplications: No immediate | | | complications.Procedure: Pre-Anesthesia Assessment: | | | - ASA Grade Assessment: II - A patient with | | | mild systemic disease. | | | - After reviewing the risks and benefits, the patient | | | was deemed in satisfactory condition to | | | undergo the procedure. | | | - The anesthesia plan was to use moderate | | | sedation/analgesia (conscious sedation). | | | - Immediately prior to administration of | | | medications, the patient was | | | re-assessed for adequacy to receive | | | sedatives. - Sedation was administered | | | by an endoscopy nurse. The sedation | | | level attained was moderate. - The heart | | | rate, respiratory rate, oxygen saturations, | | | blood pressure, adequacy of pulmonary ventilation, and | | | response to care were monitored throughout the | | | procedure. - The physical status of the | | | patient was re-assessed after the | | | procedure. Prior to the procedure, a | | | History and Physical with airway | | | assessment was performed (see patient record), | | | and patient medications and allergies were reviewed. The | | | risks and benefits of the procedure and the | | | sedation options and risks were | | | discussed. All questions were answered | | | and informed consent was obtained. After | [...] the procedure. | | | The Olympus [id number]-[id number] Gastroscope #[id number] was | | | introduced through the mouth, and advanced to the lower | | | third of esophagus. The patient | | | tolerated the procedure poorly due to | | | the patient's agitation.Estimated Blood Loss: Estimated blood | | | loss: none.Findings: One benign-appearing, intrinsic stenosis | | | was found 30 to 31 cm from the incisors. This stenosis was | | | severe with associated esophagitis. The stenosis was not | | | traversed. The stricture was not dilated due to poor tolerance | | | of the patient to the procedure with excessive agitation.Moderate | | | Sedation: Moderate (conscious) sedation was administered by the | | | endoscopy nurse and supervised by the endoscopist. The | | | following parameters were monitored: oxygen saturation, heart | | | rate, blood pressure, and response to care. Total physician | | | intraservice time was 16 minutes.Impression: - | | | Benign-appearing esophageal stenosis. Dilation not | | | attempted due to patient agitaiton. | | | - No specimens collected.Recommendation: - Repeat | | | upper endoscopy to dilate stricture with | | | anesthesia (deep sedation). -stop | | | famotidine (ineffective in patients with severe | | | esophagitis and stricturing). Needs to restart | | | omeprazole 20mg q AM (script given)REMIGIO DRAKE | | | 02/17/2018 3:24:58 PMThis report has been signed electronically.Number | | | of Addenda: 0Note Initiated On: 02/17/2018 2:39 PM | | | omeprazole 20mg q AM (script given) | | |REMIGIO DRAKE MD | | |02/17/2018 3:24:58 PM | | |This report has been signed electronically. | | |Number of Addenda: 0 | | |Note Initiated On: 02/17/2018 2:39 PM | | + + + + +---------+ + + | Performing | Address | City/State/Zipcode | Phone Number | | Organization | | | | + +---------+ + + | [facility] | | | | + +---------+ + + documented in this encounter Visit Diagnoses + + | Diagnosis | + + | Esophageal stricture - Primary Stricture and stenosis of esophagus | + + | S/P dilatation of esophageal stricture Other postprocedural status | + + | Polyp of colon, unspecified part of colon, unspecified type | + + documented in this encounter"
--- OUTSIDE RECORDS SUMMARY | ~2019-12-15 | XMS | Encounter Summary ---
Demographics + + + | Address | [address] | | | [place] [address] | + + + | Home Phone | | + + + | Preferred Language | Unknown | + + + | Marital Status | Single | + + + | Adventist Affiliation | ZEFERINO | + + + | Race | or | + + + | Ethnic Group | Not or | + + + Author + + + | Author | [facility] | + + + | Organization | [facility] [employer] [facility] | + + + | Address | Unknown | + + + | Phone | Unavailable | + + + Support + + + + + | Name | Relationship | Address | Phone | + + + + + | Yennifer Batista | ECON | [address] | | | | | [place] | | | | | [address] | | + + + + + Care Team Providers + +------+ + | Care Pulp Grinder Name | Role | Phone | + +------+ + | Ed Landis MD | PCP | | + +------+ + Encounter Details +--------+ + + + + | Date | Type | Department | Care Team | Description | +--------+ + + + + | 09/18/ | Documentati | [facility] | Malinda Mason MD | | | 2017 | on | Center at [facility] [address] | [address] | | | | | [address] | [place], [place] | | | | | Mailcode: [place] | [address] | | | | | [facility] and | [phone] | | | | | [facility] [address] | | | | | | [place], [place] | | | | | | [address] | | | | | | [phone] | | | +--------+ + + + [...]
--- OUTSIDE RECORDS SUMMARY | ~2019-12-15 | XMS | Encounter Summary ---
Demographics + + + | Address | [address] | | | [place] [address] | + + + | Home Phone | | + + + | Preferred Language | Unknown | + + + | Marital Status | Single | + + + | Sabianist Affiliation | ZEFERINO | + + + | Race | or | + + + | Ethnic Group | Not or | + + + Author + + + | Author | [facility] | + + + | Organization | [facility] | + + + | Address | Unknown | + + + | Phone | Unavailable | + + + Support + + + + + | Name | Relationship | Address | Phone | + + + + + | Yennifer Batista | ECON | [address] | | | | | [place] | | | | | [address] | | + + + + + Care Team Providers + +------+ + | Care Microsoft Developer Name | Role | Phone | + +------+ + | Yasmeen Landis MD | PCP | | + +------+ + Encounter Details +--------+ + + + + | Date | Type | Department | Care Team | Description | +--------+ + + + + | 09/12/ | Inside | [facility] | Frederic Kohler | | | 2017 | Referral | [facility] [address] Par[address] Pop MD,MPH [address] | | | | Order | [address] Mailcode: | [address] | | | | | [address] [facility] | [place] [address] | | | | | Health and Healing, | [phone] | | | | | Building [address] | | | | | | [place], [place] | | | | | | [address] | | | | | | [phone] | | | +--------+ + + + [...] filedocumented as of this encounter Results EGD (09/17/2016 4:08 PM PST) + + | Specimen | + + | | + + + +------- -------+ | Narrative | Perfor med At | + +------- -------+ | MRN: | [facility] | | [id number] Date: 09/17/2016Patient Name: Order #: [id number] | ENDOSC OPY | | of : 1960CSN: [id number]: [facility] 2Procedure: | | | Upper GI endoscopyIndications: Dysphagia, For therapy of | | | esophageal strictureProviders: RICARDO STARK MD | | | (Doctor), CHERRY TIPTON RNReferring MD: FREDERIC Olsen | | | MD SERJIO, YASMEEN Elias QUAEMPTSRequesting Provider: Medicines: | | | Midazolam 7 mg IV, Fentanyl 200 micrograms IV, Topical | | | LidocaineComplications: No immediate | | | complications.Procedure: Pre-Anesthesia Assessment: | | | - ASA Grade Assessment: II - A patient with | | | mild systemic disease. | | | Prior to the procedure, a History and Physical with | | | airway assessment was performed (see | | | patient record), and patient | | | medications and allergies were reviewed. The | | | risks and benefits of the procedure and the sedation | | | options and risks were discussed. All questions | | | were answered and informed consent was | | | obtained. After reviewing the risks and | | | benefits, the patient was deemed in | | | satisfactory condition to undergo the procedure. | | | Immediately prior to administration of medications, the | | | patient was re-assessed for adequacy to | | | receive sedatives. The heart rate, | | | respiratory rate, oxygen saturations, | | | blood pressure, adequacy of pulmonary | | | ventilation, and response to care were monitored | | | throughout the procedure. The physical status of the | | | patient was re-assessed after the procedure. | | | The Olympus GIF-HQ190 Gastroscope | | | #[id number] was introduced through the | | | mouth, and advanced to the second part | | | of duodenum. The upper GI endoscopy was | | | accomplished without difficulty. The patient tolerated | | | the procedure well.Findings: The examined | | | duodenum was normal. The entire examined stomach was normal. | | | One severe (stenosis; an endoscope cannot pass) stenosis was found | | | 35 cm from the incisors. This measured 1 cm (in length) and was | | | traversed after dilation to 13.5 mm. A TTS dilator was passed | | | through the scope. Dilation with a 10-11-12 mm balloon and a | | | 12-13.5-15 mm balloon dilator was performed to 15 mm. The | | | dilation site was examined and showed mild improvement in | | | luminal narrowing. A 2 cm hiatal hernia was present. | | | Esophagitis was found 30 to 35 cm from the incisors, possibly from | | | previous dobhoff tube.Moderate Sedation: Moderate | | | (conscious) sedation was administered by the endoscopy nurse | | | and supervised by the endoscopist. The following parameters were | | | monitored: oxygen saturation, heart rate, blood pressure, and | | | response to care.Impression: - Normal examined | | | duodenum. - Normal stomach. | | | - Esophageal stenosis. Dilated. | | | - 2 cm hiatal hernia. - | | | Esophagitis, possibly from previous dobhoff tube. | | | - No specimens collected.Recommendation: - Repeat | | | upper endoscopy 2-4 weeks for retreatment.RICARDO STARK MD09/17/2016 | | | 5:06:39 PMNumber of Addenda: 0Note Initiated On: 09/17/2016 4:08 PM | | | - Esophageal stenosis. Dilated. | | | - 2 cm hiatal hernia. | | | - Esophagitis, possibly from previous dobhoff tube. | | | - No specimens collected. | | |Recommendation: - Repeat upper endoscopy 2-4 weeks for retreatment. | | |RICARDO STARK MD | | |09/17/2016 5:06:39 PM | | |Number of Addenda: 0 | | |Note Initiated On: 09/17/2016 4:08 PM | | + +------- -------+ + +---------+ + + | Performing | Address | City/State/Zipcode | Phone Number | | Organization | | | | + +---------+ + + | [facility] | | | | + +---------+ + + documented in this encounter Visit Diagnoses + + | Diagnosis | + + | Stricture of esophagus - Primary Stricture and stenosis of esophagus | + + documented in this encounter"
--- OUTSIDE RECORDS SUMMARY | ~2019-12-15 | XMS | Encounter Summary ---
Demographics + + + | Address | [address] | | | [place] [address] | + + + | Home Phone [...] Author + + + | Author | [facility] | + + + | Organization | [facility] | + + + | Address | Unknown | + + + | Phone | Unavailable | + + + Support + + + + + | Name | Relationship | Address | Phone | + + + + + | Yennifer Batista | ECON | [address] | | | | | [place] | | | | | [address] | | + + + + + Care Team Providers + +------+ + | Care Yardage Estimator Name | Role | Phone | + +------+ + | Ed Landis MD PCP | | + +------+ + Encounter Details +--------+ + + + + | Date | Type | Department | Care Team | Description | +--------+ + + + + | 05/23/ | Documentati | [facility] | Yady, Estelita Procedure | | | 2019 | on | [facility] [address] | | | | | | [address] Mailcode: | | | | | | [address] [facility] | | | | | | Health and Healing, | | | | | | Building [address] | | | | | | [place], [place] | | | | | | [address] | | | | | | [phone] | | | +--------+ + + + [...]
--- OUTSIDE RECORDS SUMMARY | ~2019-12-15 | XMS | Encounter Summary ---
Demographics + + + | Address | [address] | | | [place] [address] | + + + | Home Phone [...] Author + + + | Author | [facility] | + + + | Organization | [facility] | + + + | Address | Unknown | + + + | Phone | Unavailable | + + + Support + + + + + | Name | Relationship | Address | Phone | + + + + + | Yennifer Batista | ECON | [address] | | | | | [place] | | | | | [address] | | + + + + + Care Team Providers + +------+ + | Care Sanding Machine Operator Name | Role | Phone | + +------+ + | Ed Landis MD PCP | | + +------+ + Reason for Visit + + + | Reason | Comments | + + + | Treatment Planning | MRI needed | + + + Encounter Details +--------+ + + + + | Date | Type | Department | Care Team | Description | +--------+ + + + + | 01/30/ | Telephone | [facility] at [facility] | Larissa Doe, | Treatment Planning | | 2013 | | [address] | Jesus Leiva MD [address] | (MRI needed) | | | | Mailcode: CH10U | [facility] | | | | | [facility] | [address] | | | | | and Healing, | [place] [address] | | | | | [facility] | [phone] | | | | | Floor [place], [place] | | | | | | [address] | | | | | | [phone] | | | +--------+ + + + [...]
--- OUTSIDE RECORDS SUMMARY | ~2019-12-15 | XMS | Encounter Summary ---
Demographics + + + | Address | [address] | | | [place] [address] | + + + | Home Phone | | + + + | Preferred Language | Unknown | + + + | Marital Status | Single | + + + | Nondenominational Affiliation | ZEFERINO | + + + | Race | or | + + + | Ethnic Group | Not or | + + + Author + + + | Author | [facility] | + + + | Organization | [facility] [employer] [facility] | + + + | Address | Unknown | + + + | Phone | Unavailable | + + + Support + + + + + | Name | Relationship | Address | Phone | + + + + + | Yennifer Batista | ECON | [address] | | | | | [place] | | | | | [address] | | + + + + + Care Team Providers + +------+ + | Care Cotton Roll Packer Name | Role | Phone | + +------+ + | Ed Landis MD PCP | | + +------+ + Reason for Visit + + + | Reason | Comments | + + + | Pre-operative | | | evaluation | | + + + Encounter Details +--------+ + + + + | Date | Type | Department | Care Team | Description | +--------+ + + + + | 04/26/ | Telephone-S | Preoperative | | Pre-operative | | 2018 | cheduled | Medicine Clinic at | | evaluation | | | | [facility] | | | | | | Stay [address] | | | | [address] | | | | | | Mailcode: UHN65 | | | | | | [facility] | | | | | | [address] [place], [place] | | | | | | [address] | | | | | | [phone] | | | +--------+ + + + + Anesthesia Record + + + + + | Procedure Name | Responsible | Anesthesia Start | Anesthesia Stop Time | | | Anesthesiologist | Time | | + + + + + | GIP COLON/EGD (A) | | | | | (canceled) | [...] + + documented as of this encounter Patient Instructions Patient Instructions Abby Nguyễn RN - 04/26/2018 2:38 PM PDTFormatting of this note dariana ht be different from the original. PREOPERATIVE INSTRUCTIONS Do not eat or drink anything after midnight the night before surgery. TAKE the following medications with a sip of water on the morning of surgery: BUPROPION HCL SR 150 MG TABLET,12 HR SUSTAINED-RELEASE LORATADINE 10 MG TABLET OMEPRAZOLE MAGNESIUM 20 MG TABLET,DELAYED RELEASE Do NOT take the following medications on the morning of surgery: Unless Otherwise Directed by your Surgeon Do not take any Aspirin, vitamin E or non-ster oidal anti-inflammatory (NSAIDs i.e. Advil, Aleve, Ibuprofen) or herbal supplements seven da ys prior to your surgery. These drugs may interfere with normal blood clotting and may cause excessive bleeding and bruising during or after the surgery. If you are taking Coumadin (warfarin), Plavix or any other blood thinners please let you r surgical team know as medication changes will be necessary. If you need a pain medication for general purposes, use Tylenol as directed. If you are in doubt about any medications that you are taking, please contact our office . Important Guidelines Do not smoke, drink alcohol or use recreational drugs for 24 hours before your surgery Do not eat any hard candy or chew gum after midnight the night before your surgery. Watch for any change in your health condition. Let your surgeon know right away if you do not feel well. Do not wear makeup, perfume, lotions or powder. Remove any nail english from at least one fingernail. Do not wear any jewelry to the hospital. Wear loose, comfortable clothing. Bring the case and solution for your contact lenses or wear your glasses. Leave all your valuables at home. Allow enough travel time so you re not late for your check in for surgery. Take a bath or shower and remember to shampoo your hair using your usual hair product be fore your arrival at the hospital. Please remember to brush your teeth the night before and the morning of your procedure. Surgery Check in Locations Day Stay Unit [facility], fourth floor Room 5935 Surgery Check in Time: Someone from your surgeon's office or [facility] will provide you with information regarding your check in time. If you have any questions about this, pl ease contact your surgeon's office. Going Home Your surgical team will decide when you are medically ready to go home. If you are released to go home on the same day as your procedure/surgery please note the following: You will not be able to drive. You will be required to have a competent adult drive you or accompany you by taxi or pub lic transportation on the day of discharge. It is also required that you have a competent adult assist you and look after you on the first night after you have undergone regional blocks (72 hours for patients going home with regional block pump), deep sedation, and/or general anesthesia. If you have questions or concerns after you go home, call your doctor s office. If it is after office hours, call the [facility] pebble mill operator at [phone] and ask them to page your doc tor. documented in this encounter Plan of Treatment Not on filedocumented as of this encounter Visit Diagnoses Not on filedocumented in this encounter"
--- OUTSIDE RECORDS SUMMARY | ~2019-12-15 | XMS | Encounter Summary ---
Demographics + + + | Address | [address] | | | [place] [address] | + + + | Home Phone | | + + + | Preferred Language | Unknown | + + + | Marital Status | Single | + + + | Yarsani Affiliation | ZEFERINO | + + + | Race | or | + + + | Ethnic Group | Not or | + + + Author + + + | Author | [facility] | + + + | Organization | [facility] [employer] [facility] | + + + | Address | Unknown | + + + | Phone | Unavailable | + + + Support + + + + + | Name | Relationship | Address | Phone | + + + + + | Yennifer Batista | ECON | [address] | | | | | [place] | | | | | [address] | | + + + + + Care Team Providers + +------+ + | Care Greeting Card Editor Name | Role | Phone | + +------+ + | Ed Landis MD | PCP | | + +------+ + Encounter Details +--------+ + + + + | Date | Type | Department | Care Team | Description | +--------+ + + + + | 06/30/ | Pharmacy | Outpatient Retail | | | | 2017 | Visit | [facility] | | | | | | [address] | | | | | | [place] | | | | | | [address] | | | | | | [phone] | | | +--------+ + + + [...]
--- OUTSIDE RECORDS SUMMARY | ~2019-12-15 | XMS | Encounter Summary ---
Demographics + + + | Address | [address] | | | [place] [address] | + + + | Home Phone [...] Author + + + | Author | [facility] | + + + | Organization | [facility] [employer] [facility] | + + + | Address | Unknown | + + + | Phone | Unavailable | + + + Support + + + + + | Name | Relationship | Address | Phone | + + + + + | Yennifer Batista | ECON | [address] | | | | | [place] | | | | | [address] | | + + + + + Care Team Providers + +------+ + | Care Completion Engineer Name | Role | Phone | + +------+ + | Ed Landis MD | PCP | | + +------+ + Encounter Details +--------+ + + + + | Date | Type | Department | Care Team | Description | +--------+ + + + + | 09/18/ | Inside | [facility] | Malinda Mason MD | | | 2017 | Referral | [facility] [address] | [address] | | | | Order | [address] Mailcode: | [place], [place] | | | | | [address] [facility] | [address] | | | | | Health and Healing, | [phone] | | | | | [address] | | | | | | [place], [place] | | | | | | [address] | | | | | | [phone] | | | +--------+ + + + [...] as of this encounter Plan of Treatment +------+ +--------+ + + | Name | Type | Priori | Associated Diagnoses | Order Schedule | | | | ty | | | +------+ +--------+ + + | EGD | Procedures | Routin | Stricture of | Expected: 09/18/2016 | | | | e | esophagus | | +------+ +--------+ + + documented as of this encounter Visit Diagnoses + + | Diagnosis | + + | Stricture of esophagus - Primary Stricture and stenosis of esophagus | + + documented in this encounter"
--- OUTSIDE RECORDS SUMMARY | ~2019-12-15 | XMS | Encounter Summary ---
Demographics + + + | Address | [address] | | | [place] [address] | + + + | Home Phone | | + + + | Preferred Language | Unknown | + + + | Marital Status | Single | + + + | Sikhism Affiliation | ZEFERINO | + + + | Race | or | + + + | Ethnic Group | Not or | + + + Author + + + | Author | [facility] | + + + | Organization | [facility] | + + + | Address | Unknown | + + + | Phone | Unavailable | + + + Support + + + + + | Name | Relationship | Address | Phone | + + + + + | Yennifer Batista | ECON | [address] | | | | | [place] | | | | | [address] | | + + + + + Care Team Providers + +------+ + | Care Medical Transcription Name | Role | Phone | + +------+ + | Ed Landis MD PCP | | + +------+ + Reason for Visit + + + | Reason | Comments | + + + | Referral To | | | Gastroenterology | | + + + Encounter Details +--------+ + + + + | Date | Type | Department | Care Team | Description | +--------+ + + + + | 05/31/ | Abstract | Digestive Health | Clinic, | Referral To | | 2018 | | [place] at [facility] [address] | Gastroenterology | Gastroenterology | | | | [address] | | | | | | Mailcode: [place] | | | | | | [facility] and | | | | | | [facility], [facility] [address] | | | | | | [place], [place] | | | | | | [address] | | | | | | [phone] | | | +--------+ + + + [...]
--- OUTSIDE RECORDS SUMMARY | ~2019-12-15 | XMS | Encounter Summary ---
Demographics + + + | Address | [address] | | | [place] [address] | + + + | Home Phone | | + + + | Preferred Language | Unknown | + + + | Marital Status | Single | + + + | Restorationism Affiliation | ZEFERINO | + + + | Race | or | + + + | Ethnic Group | Not or | + + + Author + + + | Author | [facility] | + + + | Organization | [facility] [employer] [facility] | + + + | Address | Unknown | + + + | Phone | Unavailable | + + + Support + + + + + | Name | Relationship | Address | Phone | + + + + + | Yennifer Batista | ECON | [address] | | | | | [place] | | | | | [address] | | + + + + + Care Team Providers + +------+ + | Care Advanced Registered Nurse Name | Role | Phone | + [...] Pharmacy | | | | | | [address] | | | | | | [place] | | | | | | [address] | | | | | | [phone] | | | +--------+ + + + [...]
--- OUTSIDE RECORDS SUMMARY | ~2019-12-15 | XMS | Encounter Summary ---
Demographics + + + | Address | [address] | | | [place] [address] | + + + | Home Phone | | + + + | Preferred Language | Unknown | + + + | Marital Status | Single | + + + | Mosque Affiliation | ZEFERINO | + + + | Race | or | + + + | Ethnic Group | Not or | + + + Author + + + | Author | [facility] | + + + | Organization | [facility] [employer] [facility] | + + + | Address | Unknown | + + + | Phone | Unavailable | + + + Support + + + + + | Name | Relationship | Address | Phone | + + + + + | Yennifer Batista | ECON | [address] | | | | | [place] | | | | | [address] | | + + + + + Care Team Providers + +------+ + | Care Television Cabinet Finisher Name | Role | Phone | + +------+ + | Leidy Grullon MD | PCP | | + +------+ + Encounter Details +--------+ + + + + | Date | Type | Department | Care Team | Description | +--------+ + + + + | 04/14/ | Document-Sc | UNKNOWN DEPARTMENT | Unknown . | | | 2013 | anned | [address] | | | | | | [address] | | | | | | [place], [place] | | | | | | [address] | | | +--------+ + + + [...]
--- OUTSIDE RECORDS SUMMARY | ~2019-12-15 | XMS | Encounter Summary ---
Demographics + + + | Address | [address] | | | [place] [address] | + + + | Home Phone | | + + + | Preferred Language | Unknown | + + + | Marital Status | Single | + + + | Adventism Affiliation | ZEFERINO | + + + | Race | or | + + + | Ethnic Group | Not or | + + + Author + + + | Author | [facility] | + + + | Organization | [facility] [employer] [facility] | + + + | Address | Unknown | + + + | Phone | Unavailable | + + + Support + + + + + | Name | Relationship | Address | Phone | + + + + + | Yennifer Batista | ECON | [address] | | | | | [place] | | | | | [address] | | + + + + + Care Team Providers + +------+ + | Care Bridge Leverman Name | Role | Phone | + +------+ + | Ed Landis MD PCP | | + +------+ + Reason for Visit + + + | Reason | Comments | + + + | Refill Request | | + + + Encounter Details +--------+--------+ + + + | Date | Type | Department | Care Team | Description | +--------+--------+ + + + | 02/17/ | Refill | Digestive Health | Dar Dalton MD | Refill Request | | 2018 | | [place] at [facility] [address] | [address] | | | | | [address] | [place], [place] | | | | | Mailcode: OC8D | [address] | | | | | [facility] | [phone] | | | | | and Healing, | | | | | | [address] | | | | | | [facility] [place] | | | | | | [address] | | | | | | [phone] | | | +--------+--------+ + + + Social History + + [...] reflux disease with esophagitis | + + documented in this encounter"
--- OUTSIDE RECORDS SUMMARY | ~2019-12-15 | XMS | Encounter Summary ---
Demographics + + + | Address | [address] | | | [place] [address] | + + + | Home Phone | | + + + | Preferred Language | Unknown | + + + | Marital Status | Single | + + + | Jew Affiliation | ZEFERINO | + + + | Race | or | + + + | Ethnic Group | Not or | + + + Author + + + | Author | [facility] | + + + | Organization | [facility] [employer] [facility] | + + + | Address | Unknown | + + + | Phone | Unavailable | + + + Support + + + + + | Name | Relationship | Address | Phone | + + + + + | Yennifer Batista | ECON | [address] | | | | | [place] | | | | | [address] | | + + + + + Care Team Providers + +------+ + | Care Hr Business Partner Consultant Name | Role | Phone | + +------+ + | Sujatha Sullivan | PCP | | | WATERWAY TRAFFIC CHECKER | | | + +------+ + Reason [...] | | | | | Preop | Adriana Restrepo, | [address] | | | | | cardiovascul | PA-C [address] | | | | | ar exam | [address] | [place] | | | | | Arrhythmia | [facility] [place] | Mobile | | | | | NSVT | [address] | Building, 2nd | | | | | (nonsustaine | Phone: | floor | | | | | d | [phone] | [place], [place] | | | | | ventricular | Fax: | [phone] | | | | | tachycardia) | [phone] | Phone: | | | | | (HCC) | | [phone] | | | | | Procedures | [...] | | | | | Arrhythmia | Adriana Restrepo, | Arrhythmia Ep | | | | | [place] | PA-C [address] | [address] | | | | | (dyspnea on | [address] | [address] | | | | | exertion) | [facility] [place] | Mailcode: | | | | | NSVT | [address] | [facility] | | | | | (nonsustaine | Phone: | for Health | | | | | d | [phone] | and Healing, | | | | | ventricular | Fax: | Building 1, | | | | | tachycardia) | [phone] | 7th Floor | | | | | (HCC) | | [place], [place] | | | | | Procedures | | [address] | | | | | CONSULT TO | | Phone: | | | | | CARDIOLOGY | | [phone] | | | | | | | Fax: | | | | | | | [phone] | +--------+--------+ + + + + Diagnostic [...] | | | | | Preop | Adriana Restrepo, | [facility] [address] | | | | | cardiovascul | PA-C [address] | [address] | | | | | ar exam | [address] | [place] | | | | | Arrhythmia | [place], [place] | [place] | | | | | [place] (dyspnea | [address] | Building, 2nd | | | | | on | Phone: | floor | | | | | exertion) | [phone] | [place], [place] | | | | | Procedures | Fax: | [phone] | | | | | STRESS | [phone] | Phone: | | | | | ECHOCARDIOGR | | [phone] | | | | | AM, CONVERT [...] | 06/02/ | Office | Cardiology | Adriana Holly | Preop cardiovascular | | 2013 | Visit | Preventive at [facility] | RASHI Restrepo [address] | exam (Primary Dx); | | | | [address] | [address] [place], | Arrhythmia; [place] | | | | Mailcode: [id number] | [place] [address] | (dyspnea on | | | | [place] for [facility] | [phone] | exertion); NSVT | | | | and Healing, | | (nonsustained | | | | Building 1 | | ventricular | | | | [place], [place] | | tachycardia) (HCC) | | | | [address] | | | | | | [phone] | | | +--------+---------+ + + + [...] in this encounter Patient Instructions Patient Instructions Adriana Holly PA-C - 06/02/2014 2:16 PM PSTWill need all progr ess notes and cardiac test results from admission to [facility] in 2009 Schedule exercise echocardiogram 48 hour holter documented in this encounter Progress Notes Adriana Holly PA-C - 06/26/2014 9:03 AM PST48 [...] outlined. Will let surgeon know as well Adriana Guthrie PA-C - 06/08/2014 12:15 PM PSTReviewed [...] 1 Rate of cardiac , non fatal FL, non fatal cardiac arrest 0 risk factors - 0.4% (very low) 1 risk factors - 0.9% (low) 2 risk factors - 6.6%, (moderate) 3 or >risk factors - 11% (high Final Preoperative Recommendations: Records reviewed from [facility] from admission on 12/17/2010-12/19/2010 for chest pain. Patient ruled out. Had history of chronic alcoholism, GERD and esophageal erosions. Ot her admission was on 02/03/2011-02/05/2011 for grand-mal seizure from snorting Wellbutrin and alcohol withdrawal. No evidence of prior FL or CAD by records or by recent low risk stress e chocardiogram. Per Revised Cardiac Risk Index, predicted risk of perioperative cardiac morbi dity/mortality is approximately 1%. Theresa Beyer MD paged with results Ritu Moscoso MA - 06/02/2014 2:07 PM PSTWaist circumference: 33.5 inches Adriana Guthrie PA-C - 06/02/2014 1:59 PM PST [...] "irratic heartbeat". Reports he went to hospital ([facility])for 4 days - did tests but [...] Relation Anesthesia Neg Hx Heart Disease Father FL age 40's History Substance Use Topics Smoking [...] 0.72 03/21/2014 GLU 81 03/21/2014 ECG 11/18/2013 ([facility]) - Sinus rhythm with sinus arrhytmia. HR [...] 1 Rate of cardiac , non fatal FL, non fatal cardiac arrest 0 risk factors [...] y.o. male with history of Irregular Heartbeat ( per patient), Left Adrenal mass who is referred by Sujatha HUBER for cardiac evaluation and risk assessment for OPEN ADRENALECTOMY on 07/03/2014. he has vague history of possible FL by patient report, undergoing Intermediate risk surgery, with good reported exercise toleranc e but with COHEN with sustained effort..History more suggestive of atrial fibrillation, but po ssible he could have had FL. On no cardiac medications at this point. Given that he is such a vague historian, with no source records to confirm history, I would consider stress testin g. No further symptoms of palpitations, but could have occult PAF. Will need all progress notes and cardiac test results from admission to [facility] in 2009 Schedule exercise echocardiogram 48 [...] [address] Mailcode: [id number] [facility] [place] [address] documented in t his encounter Plan of Treatment + +------+--------+ + [...] CLARIFICATI | No clarifications have | | [facility] | | | ON | been [...] + + + + + | [facility] | [address] | [place], [place] | | | CARDIOLOGY | [address] | [address] | | + + + + + [...]
--- OUTSIDE RECORDS SUMMARY | ~2019-12-15 | XMS | Encounter Summary ---
Demographics + + + | Address | [address] | | | [place] [address] | + + + | Home Phone [...] + + + | Author | [facility] | + + + | Organization | [facility] [employer] [facility] | + + + | Address | Unknown | + + + | Phone | Unavailable | + + + Support + + + + + | Name | Relationship | Address | Phone | + + + + + | Yennifer Batista | ECON | [address] | | | | | [place] | | | | | [address] | | + + + + + Care Team Providers + +------+ + | Care Ore Digger Name | Role | Phone | + +------+ + | Ed Landis MD | PCP | | + +------+ + Encounter Details +--------+ + + + + | Date | Type | Department | Care Team | Description | +--------+ + + + + | 08/15/ | Telephone | Trauma Emergency | [facility] [address] | | | 2017 | | General Surgery at | [facility] | | | | | [address] [place], [place] | | | | | [address] | [address] | | | | | Physicians [place], | | | | | | 2nd Floor | | | | | | [place], [place] | | | | | | [address] | | | | | | [phone] | | | +--------+ + + + [...]
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
--- OUTSIDE RECORDS SUMMARY | ~2019-12-15 | XMS | Encounter Summary ---
Demographics + + + | Address | [address] | | | [place] [address] | + + + | Home Phone | | + + + | Preferred Language | Unknown | + + + | Marital Status | Single | + + + | Orthodox Affiliation | ZEFERINO | + + + | Race | or | + + + | Ethnic Group | Not or | + + + Author + + + | Author | [facility] | + + + | Organization | [facility] [employer] [facility] | + + + | Address | Unknown | + + + | Phone | Unavailable | + + + Support + + + + + | Name | Relationship | Address | Phone | + + + + + | Yennifer Batista | ECON | [address] | | | | | [place] | | | | | [address] | | + + + + + Care Team Providers + +------+ + | Care Small Equipment Operator Name | Role | Phone | + +------+ + | Ed Landis MD PCP | | + +------+ + Encounter Details +--------+------+ + + + | Date | Type | Department | Care Team | Description | +--------+------+ + + + | 09/01/ | Lab | Laboratory at [facility] | | Adrenal mass (HCC) | | 2014 | | [address] | | | | | | [place], [place] | | | | | | [address] | | | | | | [phone] | | | +--------+------+ + + + [...] | + + + + + | [facility] | [address] | [place] [address] | | | SERVICES, [place] [facility] | | | | | [facility] + [...] | | | LABORATORY | | | [place] | | | SERVICES, | | | [...] ANION GAP | 8 | mmol/L | [facility] | | | | | | LABORATORY | | | | | | SERVICES, | | | | | | CORE | | + +---------+ + + + + + | Specimen | + + | Blood - Blood | + + + + + | Narrative | Performed At | + + + | Study patient Please page [phone] when the patient arrive at the | [facility] | | lab. GFR is estimated using [...] + | [facility] | [address] | [place] [address] | | | SERVICES, CORE | [address] | | | + + + + + documented in this encounter Visit Diagnoses + + | Diagnosis | + + | Adrenal mass (HCC) Unspecified disorder of adrenal glands | + + documented in this encounter"
--- OUTSIDE RECORDS SUMMARY | ~2019-12-15 | XMS | Encounter Summary ---
Demographics + + + | Address | [address] | | | [place] [address] | + + + | Home Phone | | + + + | Preferred Language | Unknown | + + + | Marital Status | Single | + + + | Confucianist Affiliation | ZEFERINO | + + + | Race | or | + + + | Ethnic Group | Not or | + + + Author + + + | Author | [facility] | + + + | Organization | [facility] | + + + | Address | Unknown | + + + | Phone | Unavailable | + + + Support + + + + + | Name | Relationship | Address | Phone | + + + + + | Yennifer Batista | ECON | [address] | | | | | [place] | | | | | [phone] | | + + + + + Care Team Providers + +------+ + | Care Animal Skinner Name | Role | Phone | + [...] | | | stricture | Ave | [place] | | | | | Gastroesopha | [place], [place] | [address] | | | | | geal reflux | [address] | floor | | | | | disease with | Phone: | [place], [place] | | | | | esophagitis | [phone] | [phone] | | | | | | Fax: | Phone: | | | | | Adenomatous | [phone] | [phone] | | | | | polyp of | | Fax: | | | | | ascending | | [phone] | | | | | colon | | | | | | | Procedures | | | | | | | CONSULT TO | | | | | | | GI PROCEDURE | | | | | | | UNIT: EGD W | | | | | | | COLONOSCOPY | | | | | | | LA UPPER | | | | | | | GI | | | | | | | ENDOSCOPY,BI | | | | | | | OPSY LA | | | | | | | COLONOSCOPY, | | | | | | | FLEX, | | | | | | | W/BIOPSY LA | | | | | | | ANES UPR | | | | | | | LWR GI NDSC | | | | | | | PX LA UP GI | | | | | | | | | | | | | | ENDOSCOPY,BA | | | | | | | LL DIL,30MM | | | +--------+--------+ + + + + Encounter Details +--------+ + + + + | Date | Type | Department | Care Team | Description | +--------+ + + + + | 02/17/ | [facility] | [facility] | Dar Dalton MD | 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
--- OUTSIDE RECORDS SUMMARY | ~2019-12-15 | XMS | Encounter Summary ---
Demographics + + + | Address | [address] | | | [place] [address] | + + + | Home Phone [...] + + + | Author | [facility] | + + + | Organization | [facility] | + + + | Address | Unknown | + + + | Phone | Unavailable | + + + Support + + + + + | Name | Relationship | Address | Phone | + + + + + | Yennifer Segovia | ECON | [address] | | | | | [place] | | | | | [phone] | | + + + + + Care Team Providers + +------+ + | Care Handbag Stitcher Name | Role | Phone | + +------+ + | Ed Landis MD PCP | | + +------+ + Reason for Visit +--------+ + | Reason | Comments | +--------+ + | Other | superior mesenteric artery Sx | +--------+ + AUTH/CERT +--------+--------+ + + [...] | +--------+ + + + + | 07/22/ | Hospital | [facility] [address] | Mary Her MD | | | 2017 - | Encounter | [address] | [address] | | | | | [place] | [place], | | | [birth year]/ | | [address] | [place] [address] | | | 2017 | | [phone] | [phone] | | | | | | | [...] + + + | Blood Pressure | 126/91 | 08/01/2016 8:22 AM | | | | | PST | | + + + + + | Pulse | 96 | 08/01/2016 8:22 AM | | | | | PST | | + + + + + | Temperature | 36.5 C (97.7 F) | 08/01/2016 8:22 AM | | | | | PST | | + + + + + | Respiratory Rate | 16 | 08/01/2016 3:06 AM | | | | | PST | | + + + + + | Oxygen Saturation | 100% | 08/01/2016 8:22 AM | | | | | PST | | + + + + + | Inhaled Oxygen | - | - | | | Concentration | | | | + + + + + | Weight | 42.9 kg (94 lb 8 oz) | 07/27/2016 5:52 AM | | | | | PST | | + + + + + | Height | 162.6 cm (5' 4") | 07/22/2016 3:38 AM | | | | | PST | | + + + + + | Body Mass Index | 16.22 | 07/22/2016 3:38 AM | | | | | PST | | + + + + + documented in this encounter Discharge Summaries Steve Martin MD - 08/01/2016 3:58 PM PSTFormatting of this note might be different f rom the original. 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 -This led to Severe protein calorie malnutrition with significant muscle wasting. -The ultimate goal is improved nutrition in an effort to increase the fat pad near the SMA and "raise" it up to prevent duodenal obstruction, starting initially with TPN, and eventual ly enteric nutrition. Steve Martin MD [facility] DEPARTMENT OF SURGERY EMERGENCY GENERAL SURGERY Division of Trauma and Critical Care INPATIENT PROVIDER DISCHARGE SUMMARY Note Date: 08/01/2016 Admission Date: 07/22/2016 COREEN SEGOVIA, Discharge Date: 01 Aug 2016 PCP: Ed Landis MD Attending Physician: Dr Steve Martin Author: Zay Espinoza MD Diagnoses Principal Final Diagnosis: 1. Superior mesenteric artery syndrome 2. Esophageal narrowing Additional Diagnoses: -malnutrition -iron deficiency anemia Procedures 07/29: EGD and colonoscopy Brief Hospital Course Mr Coreen Segovia is a 55 year old with a history of GERD on protonix; also underwent an open l eft adrenalectomy on 08/17/14 for a 14cm adrenal myelolipoma. He originally presented to [facility] in [place], [place] with a week of worsening abdominal pain, nausea, and vomi ting. This was super-imposed on a chronic issue of dysphagia and poor PO intake, resulting in a 100 pound weight loss over a 6 month period. Imaging revealed dilation of the GI tract from the stomach to the 3rd/4th portion of the duodenum (where the SMA crosses), concerning for superior mesenteric artery syndrome. Mr Segovia was transferred to [facility] on 07/22 for further cares. On arrival PICC line was placed a nd he was started on TPN. Small bowel follow through revealed findings consistent with SMA syndrome, though there was no improvement in contrast with patient prone (which would be exp ected in classic SMA syndrome). Given his drastic and unintentional weight loss, tumor mary ers were sent that were remarkable for an elevated CA19-9; a dedicated multiphase abdomen/pe lvic contrast CT was performed that did not reveal any pancreatic lesion (or other intra-abd ominal malignancy); of note the CT was able to calculate an aorto-SMA angle of 14 degrees, a gain consistent with SMA syndrome (normal of 25-60 degrees). Seen by speech therapy and cleared for a full liquid diet, but shortly after initiation exp erienced nausea and emesis and so his diet was discontinued. Enteral feeding tube was place d into the jejunum and tube feeds were initiated and advanced to goal, well tolerated. He w as closely monitored for refeeding syndrome and electrolytes were replaced as needed. As so on as goal feeds were reached the patient's TPN was discontinued. Again, given weight loss and elevated CA19-9 further malignancy workup was performed: a [facility] CT showed nonspecific small pulmonary nodules, most likely inflammation (follow up CT in 1 year). Gastroenterology was consulted to perform an EGD and patient's first colonoscopy; colonoscopy revealed a small sigmoid polyp identified as leiomyoma on pathology, while EGD s howed a friable and narrowed distal esophagus, biopsied and found to be benign but inflamed, ulcerated reactive tissue. Prior to discharge this area was dilated to 13mm, with plans fo r serial dilations as an outpatient. His hemoglobin was also significantly depressed, worsening through admission and patient wa s beginning to endorse symptoms and so was transfused 1U PRBC. His iron levels were checked and found to be remarkably low (ferritin of just 3 with 6% transferrin saturation); given d ose of IV iron prior to discharge and sent home with continued iron supplementation. On hospital day 10 Mr Segovia was able to participate in activities of daily living, his nausea was under control, and a plan was in place for nutritional support in the near future was i n place. He is to continue on tube feeds while at home, and will follow up in clinic on 07/21 to re-evaluate nutritional status and consider surgical intervention for SMA syndrome give n his chronic course (though course/presentation complicated by concurrent esophageal strict ure). Will coordinate repeat dilation with gastroenterology at the same date. Emergency General Surgery Clinic to address the following: need for surgical repair of susp ected SMA syndrome, pre-operative optimization of nutritional status, need for continued ent eral feeds with esophageal dilation -pre-clinic labs ordered Incidental findings: lumenal narrowing of esophagus Pathology results: A. Esophagus at 35cm biopsy: - Ulcerated squamous mucosa with inflammation, granulation tissue and reactive epithelial changes, see comment B. Sigmoid colon polyp, biopsy: - Submucosal leiomyoma - Negative for dysplasia and malignancy Outstanding labs/pathology/studies: None ANTICOAGULATION: No Indication: Not applicable Duration:Not applicable ------- Vitals on discharge: Ht 1.626 m (5' 4"), Wt 42.9 kg (94 lb 8 oz), BP 126/91, Pulse 96, Temp erature 36.5 C (97.7 F), RR 16, SpO2 100%, BMI 16.22 kg/(m^2). Medications: Coreen Segovia Home Medication Instructions DARLIN:[id number] Printed on:08/01/16 6528 Medication Information acetaminophen 325 mg oral tablet Take 1-2 tablets by mouth every four hours as needed. ascorbic acid, vitamin C, 500 mg oral tablet Take 1 tablet by mouth once daily. buPROPion SR 150 mg oral tablet extended release Take 150 mg by mouth two times daily. dicyclomine 10 mg oral capsule Take 20 mg by mouth four times daily as needed. Indications: Irritable Bowel Syndrome Ferrous Sulfate 300 mg total salt/5 mL (60 mg elementa/5 mL) oral liquid Take 5 mL by mouth two times daily. loratadine 10 mg oral tablet Take 10 mg by mouth once daily. multivitamin oral tablet Take 1 tablet by mouth once daily. omeprazole 2 mg/mL oral suspension (compound) Take 10 mL by feeding tube route two times daily. ondansetron 8 mg oral tablet Take 1 tablet by mouth every eight hours as needed for nausea/vomiting. oxyCODONE, immediate release, 5 mg oral tablet Take 1 to 2 tablets by feeding tube route every six hours as needed for moderate pain. For severe pain and discomfort Take stool softeners (such as miralax) while taking oxycodone polyethylene glycol 17 gram/dose oral powder Mix 17 g in liquid and drink once daily. Diet Liquid Full liquid diet - You will be on a full liquid diet at home. Try to take 48-64 fluid ounc es daily or as instructed. LIMIT TO 200 ML OF FLUID EVERY 8 HOURS. The liquids would inclu de protein drinks, cream of wheat, yogurt without fruit and clear liquids. STOP DIET IF STARTING TO EXPERIENCE NAUSEA TUBE FEEDING Transition to cyclic tube feeds once home with Replete @ 95 ml/hr x 14 hrs Home Health Referral after Hospitalization Comments: I certify that this patient is under my care and that I, or Nurse Practitioner or Physician Field Crop Farmer working with me, had a face to face encounter with this patient on 08/01/2016 On behalf of Attending Physician: Mary Her MD I am ordering and certify that the following services are medically necessary [facility] Senior Living Evaluate and Treat I am ordering and certify that the following services are medically necessary [facility] Physical Therapy Evaluate and Treat I certify that the patient is homebound based on the following clinical findings Post-hospi jocelyn weakness, decreased strength and endurance, and tires easily with minimal exertion Other Discharge Orders and Instructions ACUTE CARE SURGERY/ EMERGENCY GENERAL SURGERY CLINIC FOLLOW UP Location: [address]. [address] located on the [facility] campus across from the Hospital PAIN medications will ONLY be REFILLED during CLINIC appointments. Paper Work: BRING ALL WORK / DISABILITY PAPER WORK to your Clinic appointments. These mus t be completed in your presence as they are statements attesting to your current condition. Dobbhoff feeding tube The company who will supply the tube feeding and pump will instruct you on how to administe r using their equipment. They will be your resource once you are discharged. Call the [facility] dermatology sales representative for questions or concerns related to tube feeding. Elevate head of bed at least 30 degrees during feeding to prevent aspiration. Hold tube fee dings for increased abdominal distention and or pain. Administer tube feedings at ordered volume and rate. Using a 60 cc or larger syringe, flus h the feeding tube with the appropriate amount of free water as ordered. Example: 150ml ev walt 4 hours. Ideally, flush feeding tubes every 4 hours during continuous feeding and before and after e ach intermittent/bolus to prevent blockage. If giving fiber, mix in adequate amount of wate r to prevent blocking the tube. Administration of medication or additive (i.e. protein supplement) should be done using a 6 0 cc or larger syringe; administration should be through the feeding tube and the tube shoul d be flushed with water after administering medication or additives; do not add anything dir ectly to the closed system feeding bag. What to eat when you have a partial bowel obstruction This information will help you choose what to eat when you have a partial bowel obstruction . It has general nutrition guidelines only. Talk to your dietitian about the food choices th at are right for you. What diet do I need to follow? Eating less residue may help improve your pain, abdominal cramping or fullness and gas. Res idue means high fibre foods, stringy foods and foods with skins and seeds. The amount of residue you can eat depends on your symptoms and the degree of your bowel obs truction. This chart shows symptoms and the type of diet that can help. Type of symptoms, Type of diet that can help Mild symptoms: Occasional abdominal cramping, excess gas, bloating Low residue diet Moderate symptoms: Abdominal pain, cramps, bloating that does not go away Minimal residue diet Severe symptoms: Severe abdominal pain, heartburn, significant bloating, nausea, cramps Fluid diet Contact your health care team. What to eat when you have a partial bowel obstruction Some helpful tips: You may find it helpful to keep a record of the foods that cause nausea, cramping or bloating and share this list with your dietitian. Eat only as much as you feel comfortable and do not force food! Chew all solid foods well. Eat small meals large meals may lead to more discomfort and/or cramping. Aim for 5 or 6 small meals rather than 3 large meals. Drink as much as you can. Try to have 6 to 8 cups of fluids each day. You may need to take a multivitamin if you cannot eat as much as usual or if your diet is severely restricted. Discuss this with your Health Care Provider or dietiti an. Schedule the following appointment(s) when you get home Follow up with Trauma Emergency General Surgery at [facility]. Go on 08/11/2016. Specialty: Trauma Center Contact information [address] Mailcode: [id number] [facility] [address] [address] Additional information: [facility] 2nd floor [address]. The [facility] is the building just past [facility]. Turn r ight immediately past the Pavilion. The entrance to the garage will be on your right just be yond the main entrance to the Pavilion. Cash Applications Representative parking is available in the [facility] on Garage, Thursday through Thursday, from 7 a.m. to 6 p.m. An elevator in the parking garage or in the lobby will take patients directly from the par bob garage to the floor of the office visit. For your convenience, a pharmacy is located on the 1st floor of the building. The Trauma Clinic is located on the 2nd floor in [address]. Please check in at the front d esk. Destination: Destination: Home Condition on Discharge Good Physical Exam on Discharge Last Vitals: BP 126/91 | Pulse 96 | Temp 36.5 C (97.7 F) | RR 16 | Ht 1.626 m (5' 4") | Wt 42.9 kg (94 lb 8 oz) | SpO2 100% | BMI 16.22 kg/(m^2) 24 Hour Vital Min/Max: Systolic (24hrs), Av , Min:112 , Max:127 Diastolic (24hrs), Av, Min:81, Max:91 Gen: lying in bed, cachectic, pleasant and conversant, appropriate Pulm: Unlabored, breathing comfortably on room air CV: RRR Abd: Soft, nondistended, mild tenderness. Scaphoid. Left subcostal incision well healed. D HT bridaled in place, secured to side of face with tape for comfort Ext: WWP, thin with no edema Thank you for the opportunity to take care of COREEN SEGOVIA during this inpatient stay, it has been our pleasure. Please call with any questions, . Discharging Provider: Zay Espinoza MD Attending Physician: Dr Steve Martin documented in this encounter Discharge Instructions Instructions Triny Alvarado RN - 08/01/2016Discharge Nurse: Triny Alvarado RN Date: 08/01/2016 Discharge Time: 5:43 PM documented in this encounter Medications at Time [...] documented as of this encounter Progress Notes Paola Amaya R - 08/01/2016 8:41 AM PSTFormatting of this note might be different fr om the original. Gastroenterology Medical Student Follow-Up Note Date: 08/01/2016 Author: Faina Amaya MS4 IMPRESSION/PLAN: Lester Juárez is a 55 year-old male with a history of EtOH abuse, GERD, L adrenal myeolipoma ( s/p resection 07/2014 for symptoms thought to be related to mass size) who was admitted for a n SBO attributed to SMA syndrome in the setting of recent weight loss. Esophageal stricture found and dilated to 13 cm during this hospitalization - now tolerating PO liquids without d ysphagia. Also found to have iron deficiency anemia, likely related to alcohol abuse and krissy oing malnutrition. Colonoscopy performed during this hospitalization showed one sigmoid poly p which was negative for dysplasia and malignancy. --Probable discharge today with follow-up for repeat EGD+dilation in 1-2 weeks (coordinate with surgery appt) -- continue home PPI, the importance of regularly taking this medication (even in the absen ce of symptoms) to prevent recurrence of the structure was discussed with the patient -- Iron studies show significant iron deficiency anemia. IV venofer would be beneficial cira or to discharge. This plan was discussed and formulated with the Gastroenterology attending, Dr. Sanchez. Veda davis call the on-call GI fellow with any questions. Faina Amaya, MS4 [facility] Pager: [phone] INTERVAL HISTORY: -- Received 1 unit pRBCs yesterday AM for Hgb 6.8 prior to his procedure. -- Iron studies showed significant iron deficiency. -- EGD with esophageal dilation to 13 cm at the stricture site yesterday. Went well. -- Reports feeling well this AM. Tolerated PO water overnight and felt "like it was more op en" when swallowing. -- Denies N/V, abdominal pain, etc. -- Continues to tolerate DHT feeds well. No BM yet, continues to pass gas. EXAM BP 126/91 | Pulse 96 | Temp 36.5 C (97.7 F) | RR 16 | Ht 1.626 m (5' 4") | Wt 42.9 kg ( 94 lb 8 oz) | SpO2 100% | BMI 16.22 kg/(m^2) Systolic (24hrs), Av , Min:106 , Max:141 Diastolic (24hrs), Av, Min:75, Max:91 Pulse Av.8 Min: 87 Max: 111 Temp Av.4 C (97.6 F) Min: 36.1 C (97 F) Max: 36.7 C (98.1 F) Resp Av.6 Min: 10 Max: 18 SpO2 Av.3 % Min: 95 % Max: 100 % General: in no acute distress HEENT: normocephalic, atraumatic, MMM, edentulous Respiratory: clear to auscultation bilaterally; no wheezes, rales, or rhonchi CV: regular rate and rhythm; no murmurs, rubs, or gallops; 2+ peripheral pulses bilaterally Abdomen: soft, non-tender, non-distended, no rebound or guarding, hyperactive bowel sounds Extremities: no cyanosis or peripheral edema Neuro: awake and alert, grossly oriented, no focal deficits LABS CBC with diff last 72 hours (or 3 results): Recent Labs 07/29/16 0926 07/31/16 0520 WBC 4.66 5.05 HB 6.9* 6.8* HCT 23.5* 23.3* PLT 340 370 Recent Labs 07/22/16 0711 07/23/16 1033 07/29/16 0404 07/29/16 1135 07/30/16 1130 07/31/16 0520 NA 140 141 < > 139 -- 140 143 K 3.3* 3.4 < > 4.2 -- 3.9 3.6 CL 105 104 < > 105 -- 108 110* BICARB 26 22 < > 27 -- 26 25 BUN 9 9 < > 16 -- 8 9 CR 0.66* 0.65* < > 0.62* -- 0.54* 0.54* GLU 83 57* < > 81 90 97 71 CA 7.6* 8.7 < > 7.4* -- 7.9* 7.6* AST 13 20 -- -- -- -- -- ALT 11 13 -- -- -- -- -- AP 46* 56 -- -- -- -- -- TBILI 0.3 0.5 -- -- -- -- -- TP 5.6* 6.6 -- -- -- -- -- ALB 2.7* 3.1* | 3.1* < > 2.9* -- 3.0* 2.8* ANIONGAP 9 15 < > 7 -- 6 8 ANIONALBCOR 12* 17* < > 9 -- 8 11 < > = values in this interval not displayed. Iron studies (07/31/16) Iron 25 (low) TIBC 403 (upper limit of normal) %saturation 6 (low) Ferritin 3 (low) IMAGING/STUDIES EGD with dilation (07/31/16): - esophagitis - stricture noted at 35cm, some resistance passing gastroscope - gastroscope advanced into stomach, dobhoff tube noted passing into pylorus - wire-guided balloon advanced into stomach under direct visualization and then withdrawn u ntil mid-point of balloon at 35cm, dilated to 11mm with no resistance, then 12mm, then 13mm. The area of stricture was inspected with small amount of blood noted, gastroscope passed mu ch easier ege Mcrae MD - 08/01/2016 7:47 AM PST Gastroenterology Fellow Progress Note Date: 08/01/2016 RADHA Segovia is a 55M with a past medical history significant for EtOH use, adrenal myelo lipoma s/p L adrenalectomy 08/17/14 who was transferred from OSH for small bowel obstruction attributed to SMA syndrome, in the setting of 1-2 years of weight loss and dysphagia. EGD/co lonoscopy 07/29 with esophagitis and stricture (~10mm), which was biopsied, also hiatal herni a, no mass seen, and 7mm sigmoid colon polyp. EGD done 07/31 with dilation of esophageal stri cture to 13 mm. Doing well today and we will arrange repeat dilation on 08/11. RECOMMENDATIONS - continue PPI - repeat EGD with dilation in 1-2 weeks (can be coordinated with his appointment to see deborah tobias) - iron replacement with venofer per primary team/PCP We will continue to follow along with you. This plan was discussed and formulated with the Gastroenterology attending, Dr. Sanchez. Please call the on-call GI fellow with any questions. Gege Mcrae MD Gastroenterology Fellow Pager [phone] INTERVAL HISTORY: - EGD with dilation of esophageal stricture to 13 mm. - VSS - iron and ferritin low - did have mild CP after procedure, but now resolved. Current Facility-Administered Medications Medication Dose Route Frequency acetaminophen (TYLENOL) tablet 325-650 mg 325-650 mg oral Q4H PRN alteplase (CATHFLO ACTIVASE) injection 2 mg 2 mg Intracatheter PRN aluminum-magnesium hydroxide-simethicone (MAALOX; MYLANTA) 200-200-20 mg/5 mL suspensio n 15 mL 15 mL oral QID PRN ascorbic acid (vitamin C) tablet 500 mg 500 mg oral DAILY bisacodyl (DULCOLAX) suppository 10 mg 10 mg rectal DAILY PRN buPROPion SR (WELLBUTRIN-SR, ZYBAN) tablet 150 mg 150 mg oral BID enoxaparin (LOVENOX) injection 40 mg 40 mg subcutaneous QPM guaiFENesin LA (MUCINEX) tablet 600 mg 600 mg oral BID iron sucrose (VENOFER) 200 mg in NaCl 0.9 % IV 200 mg intravenous ONCE loratadine (CLARITIN) tablet 10 mg 10 mg oral DAILY multivitamin-minerals 1 tablet 1 tablet oral DAILY NaCl 0.9 % solution 50 mL/hr intravenous CONTINUOUS omeprazole (PRILOSEC) oral suspension (compound) 40 mg 40 mg oral BID ondansetron (ZOFRAN) injection 4 mg 4 mg intravenous Q12H PRN ondansetron (ZOFRAN) tablet 8 mg 8 mg oral Q8H PRN oxyCODONE (immediate release) (ROXICODONE) tablet 5-10 mg 5-10 mg feeding tube Q6H PRN phenol (CHLORASEPTIC) 1.4 % spray 1-3 spray 1-3 spray oral Q2H PRN polyethylene glycol (MIRALAX) powder 17 g 17 g oral DAILY polyethylene glycol (MIRALAX) powder 34 g 34 g oral TID PRN prochlorperazine (COMPAZINE) tablet 5 mg 5 mg oral Q6H PRN senna-docusate (SENOKOT S) 8.6-50 mg 2 tablet 2 tablet oral BID EXAM BP 112/84 | Pulse 101 | Temp 36.3 C (97.3 F) | RR 16 | Ht 1.626 m (5' 4") | Wt 42.9 kg (94 lb 8 oz) | SpO2 99% | BMI 16.22 kg/(m^2) Systolic (24hrs), Av , Min:106 , Max:141 Diastolic (24hrs), Av, Min:75, Max:86 Pulse Av Min: 87 Max: 111 Temp Av.4 C (97.6 F) Min: 36.1 C (97 F) Max: 36.7 C (98.1 F) Resp Av.6 Min: 10 Max: 18 SpO2 Av.3 % Min: 95 % Max: 100 % Gen: comfortable appearing, nad HEENT: sclera anicteric CV: mild tachycardia Lungs: CTAB Abd: soft, nontender, normoactive bs, no rebound or guarding LABS CBC with diff last 72 hours (or 3 results) Recent Labs 07/29/16 0926 07/31/16 0520 WBC 4.66 5.05 HB 6.9* 6.8* HCT 23.5* 23.3* PLT 340 370 Chemistries: Last 72 Hours (or 3 results): Recent Labs 07/30/16 1130 07/31/16 0520 NA 140 143 K 3.9 3.6 CL 108 110* BICARB 26 25 BUN 8 9 CR 0.54* 0.54* CA 7.9* 7.6* MG -- 1.8 PO4 2.9 3.1 Liver Tests: Last 72 hours (or 3 results) Recent Labs 07/30/16 1130 07/31/16 0520 ALB 3.0* 2.8* Lab Results Component Value Date INRPT 0.95 07/29/2016 Ref. Range 07/31/2016 20:16 IRON Latest Ref Range: 50 - 170 ug/dL 25 (L) IRON BIND CAP SERUM Latest Ref Range: 240 - 450 ug/dL 403 % SATURATION TRANSFERRIN, Latest Ref Range: 20 - 50 % 6 (L) FERRITIN Latest Ref Range: 50 - 200 ng/mL 3 (L) Travis Benson Md - 07/31 1:35 PM PST Pre Sedation Endoscopy Note: MR# [id number] Subjective: Coreen Segovia is a 55 y.o. male who presents today for EGD with possible dila tion. Patient History Reviewed Medications reviewed Allergies: Allergies as of 07/21/2016 - Fully Reviewed 09/01/2014 Allergen Reaction Noted Naproxen Hives 03/21/2014 ASA class 3E Pt NPO for 12 hrs. ROS: All others negative. Objective: Vital Signs: BP 131/84 | Pulse 92 | Temp 36.5 C (97.7 F) | RR 14 | Ht 1.626 m (5' 4") | Wt 42.9 kg (94 lb 8 oz) | SpO2 100% | BMI 16.22 kg/(m^2) Neuro: alert, oriented Respiratory: Lungs clear to auscultation bilaterally with good air exchange Cardiovascular: RRR Abdomen: soft, normal active bowel sounds, nontender Impression Patient deemed appropriate candidate for planned procedure and sedation. Plan Proceed with EGD PARQ held and all questions addressed. Consent obtained. See procedure note 07/31/2016 lexis, Zay Ross MD - 07/31 12:39 PM PST EGS Inpatient Daily Progress Note: Author: Zay Espinoza MD Attending Physician: Steve Martin MD Primary Care Provider: Ed Landis MD Note Date: 07/31/2016 Admission Date: 07/22/2016 COREEN SEGOVIA, [id number] Hospital Day #9 Procedures: 07/29: EGD, colonoscopy Subjective: DHT came out slightly last night; readvanced and checked with KUB and found to be appropria tely placed Vitals WNL Hgb had been downtrending, 6.8 this morning -endorses headaches, fatigue, dizziness Plans for dilation, CT chest today Objective: Physical Exam: Last Vitals: BP 115/82 | Pulse 94 | Temp 36.6 C (97.9 F) | RR 16 | Ht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 | | of | | | childr | | | en: | | | N/A | | | | | | Years | | | of | | | educat | | | ion: | | | N/A | | | Social | | | | | | Histor | | | y Main | | | | | | Topics | | | | | | | | | Smokin | | | g | | | status | | | : | | | Former | | | | | | Smoker | | | | | | Packs/ | | | day: | | | 1.00 | | | | | | Years: | | | 3.00 | | | | | | Types: | | | | | | Cigare | | | ttes | | | Quit | | | date: | | | 11/14/ | | | 1974 | | | | | | | | | Smokel | | | ess | | | tobacc | | | o: | | | Never | | | Used | | | | | | | | | Alcoho | | | l use | | | No | | | Commen | | | t: 1-2 | | | per | | | month- | | | mixed | | | drinks | | | | | | Drug | | | use: | | | No | | | | | | Sexual | | | | | | activi | | | ty: | | | Not on | | | file | | | Other | | | Topics | | | | | | Concer | | | n | | | Not | | | on | | | file | | | Social | | | | | | Histor | | | y | | | Narrat | | | dunia | | | 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 | | | | | | [place] | | | d. | | | | | | | | | ECG | | | 5/2/20 | | | 14 | | | ([facility] | | | ) - | | | Sinus | | | rhythm | | | with | | | sinus | | | arrhyt | | | shanti. | | | HR 76 | | | bpm. | | | Normal | | | ECG | | | ECG | | | 9/2/20 | | | 14 (I | | | person | | | ally | | | review | | | ed | | | tracin | | | g) - | | | SINUS | | | RHYTHM | | | . VR | | | 84 | | | bpm. | | | EARLY | | | PRECOR | | | DIAL | | | R/S | | | TRANSI | | | TION | | | | | | Exerci | | | se | | | [place] | | | rdiogr | | | am | | | 06/07/ | | | 2014 - | | | Final | | | | | | Impres | | | sions: | | | 1. | | | Negati | | | ve | | | stress | | | echo | | | for | | | ischem | | | ia. | | | Target | | | HR | | | was | | | achiev | | | ed at | | | a | | | modera | | | te | | | worklo | | | ad for | | | age. | | | There | | | was no | | | chest | | | pain. | | | 2. | | | EKG | | | negati | | | ve for | | | | | | ischem | | | ia. | | | 3. At | | | rest | | | there | | | is | | | normal | | | left | | | ventri | | | cular | | | systol | | | ic | | | functi | | | on. | | | 4. | | | Echo | | | negati | | | ve for | | | | | | ischem | | | ia. | | | Howeve | | | r, the | | | | | | degree | | | of | | | systol | | | ic | | | augmen | | | tation | | | | | | global | | | ly was | | | less | | | than | | | predic | | | beatriz. | | | Low | | | risk | | | stress | | | echo | | | in a | | | patien | | | t who | | | achiev | | | ed | | | >85% | | | MAPHR | | | and no | | | | | | induci | | | ble | | | ischem | | | ia | | | 48 | | | Hour | | | Holter | | | | | | Monito | | | r | | | (/19 | | | /2013) | | | : 1. | | | Baseli | | | ne | | | rhythm | | | is | | | sinus | | | tachyc | | | ardia | | | (67% | | | of the | | | | | | study) | | | with | | | rare | | | multif | | | ocal | | | PVCs | | | and a | | | single | | | run | | | of 5 | | | beats | | | NSVT. | | | 2. | | | Patien | | | t | | | submit | | | beatriz | | | one | | | event | | | which | | | corres | | | ponded | | | to | | | sinus | | | tachyc | | | ardia | | | at his | | | | | | averag | | | e | | | heart | | | rate | | | of 106 | | | bpm. | | | 3. | | | Follow | | | up | | | with | | | requet | | | ing | | | provid | | | er. | | | | | | | | | | | | OUTPAT | | | IENT | | | MEDICA | | | TIONSP | | | rior | | | to | | | Admiss | | | ion | | | Medica | | | tions | | | Prescr | | | iption | | | s | | | buPROP | | | ion SR | | | 150 | | | mg | | | oral | | | tablet | | | | | | extend | | | ed | | | releas | | | e Sig: | | | Take | | | 150 mg | | | by | | | mouth | | | two | | | times | | | daily. | | | | | | dicycl | | | omine | | | 10 mg | | | oral | | | capsul | | | e Sig: | | | Take | | | 20 mg | | | by | | | mouth | | | four | | | times | | | daily | | | as | | | needed | | | . | | | Indica | | | tions: | | | | | | Irrita | | | ble | | | Bowel | | | Syndro | | | me | | | lorata | | | dine | | | 10 mg | | | oral | | | tablet | | | Sig: | | | Take | | | 10 mg | | | by | | | mouth | | | once | | | daily. | | | | | | multiv | | | itamin | | | oral | | | tablet | | | Sig: | | | Take 1 | | | | | | tablet | | | by | | | mouth | | | once | | | daily. | | | | | | pantop | | | razole | | | 40 mg | | | oral | | | tablet | | | ,delay | | | ed | | | releas | | | e | | | (DR/EC | | | ) Sig: | | | Take | | | 40 mg | | | by | | | mouth | | | once | | | daily. | | | | | | Facili | | | ty-Adm | | | iniste | | | red | | | Medica | | | tions: | | | None | | | INPATI | | | ENT | | | MEDICA | | | TIONSa | | | cetami | | | nophen | | | | | | (TYLEN | | | OL) | | | tablet | | | | | | 325-65 | | | 0 mg, | | | 325-65 | | | 0 mg, | | | oral, | | | Q4H | | | PRNalu | | | minum- | | | magnes | | | ium | | | hydrox | | | fausto-si | | | methic | | | one | | | (MAALO | | | X; | | | MYLANT | | | A) | | | 200-20 | | | 0-20 | | | mg/5 | | | mL | | | suspen | | | wenceslao | | | 15 mL, | | | 15 | | | mL, | | | oral, | | | QID | | | PRNbis | | | acodyl | | | | | | (DULCO | | | LAX) | | | suppos | | | itory | | | 10 mg, | | | 10 | | | mg, | | | rectal | | | , | | | DAILY | | | PRNbuP | | | ROPion | | | SR | | | (WELLB | | | UTRIN- | | | SR, | | | ZYBAN) | | | | | | tablet | | | 150 | | | mg, | | | 150 | | | mg, | | | oral, | | | BIDeno | | | xapari | | | n | | | (LOVEN | | | OX) | | | inject | | | ion 30 | | | mg, | | | 30 mg, | | | | | | subcut | | | aneous | | | , | | | QPMfat | | | | | | emulsi | | | on | | | (INTRA | | | LIPID) | | | 20 % | | | IV | | | infusi | | | on 23 | | | g, 23 | | | g, | | | intrav | | | enous, | | | TPN | | | 2100 | | | AND* | | | * | | | parent | | | eral | | | nutrit | | | ion | | | (adult | | | ), , | | | intrav | | | enous, | | | TPN | | | 2100lo | | | ratadi | | | ne | | | (PREETI | | | TIN) | | | tablet | | | 10 | | | mg, 10 | | | mg, | | | oral, | | | DAILYo | | | mepraz | | | ole | | | (PRILO | | | SEC) | | | oral | | | suspen | | | wenceslao | | | (compo | | | und) | | | 40 mg, | | | 40 | | | mg, | | | oral, | | | BEFORE | | | | | | BREAKF | | | ASTond | | | ansetr | | | on | | | (ZOFRA | | | N) | | | inject | | | ion 4 | | | mg, 4 | | | mg, | | | intrav | | | enous, | | | Q12H | | | PRNond | | | ansetr | | | on | | | (ZOFRA | | | N) | | | tablet | | | 8 mg, | | | 8 mg, | | | oral, | | | Q8H | | | PRNoxy | | | CODONE | | | | | | (immed | | | iate | | | releas | | | e) | | | (ROXIC | | | ODONE) | | | | | | tablet | | | 5-10 | | | mg, | | | 5-10 | | | mg, | | | oral, | | | Q6H | | | PRNphe | | | nol | | | (CHLOR | | | ASEPTI | | | C) 1.4 | | | % | | | spray | | | 1-3 | | | spray, | | | 1-3 | | | spray, | | | oral, | | | Q2H | | | PRNpol | | | yethyl | | | lorrie | | | glycol | | | | | | (MARIA ALEJANDRA | | | AX) | | | powder | | | 17 g, | | | 17 g, | | | oral, | | | | | | DAILYp | | | olyeth | | | ylene | | | glycol | | | | | | (MARIA ALEJANDRA | | | AX) | | | powder | | | 34 g, | | | 34 g, | | | oral, | | | TID | | | PRNpro | | | chlorp | | | erazin | | | e | | | (VIVIANE | | | ZINE) | | | tablet | | | 5 mg, | | | 5 mg, | | | oral, | | | Q6H | | | PRNsen | | | na-doc | | | usate | | | (SENOK | | | OT S) | | | 8.6-50 | | | mg 2 | | | tablet | | | , 2 | | | tablet | | | , | | | oral, | | | BIDALL | | | ERGIES | | | : | | | Allerg | | | ies | | | Allerg | | | en | | | Reacti | | | ons | | | | | | Naprox | | | en | | | Hives | | | PHYSIC | | | AL | | | EXAMBP | | | | | | 101/73 | | | | | | | Pulse | | | 100 | | | | Temp | | | 36.4 | | | C | | | (97.5 | | | F) | | | | RR 16 | | | | Ht | | | 1.626 | | | m (5' | | | 4") | | | | Wt | | | 42.9 | | | kg (94 | | | lb 8 | | | oz) | | | | SpO2 | | | 100% | | | | BMI | | | 16.22 | | | kg/(m^ | | | 2): | | | Systol | | | ic | | | (24hrs | | | ), | | | Av | | | 2 , | | | Min:98 | | | , | | | Max:10 | | | 7 / | | | Diasto | | | lic | | | (24hrs | | | ), | | | Av | | | , | | | Min:71 | | | , | | | Max:77 | | | Pulse | | | Avg: | | | 104.5 | | | Min: | | | 100 | | | Max: | | | 112Tem | | | p | | | Avg: | | | 36.4 | | | C | | | (97.6 | | | F) | | | Min: | | | 36.2 | | | C | | | (97.2 | | | F) | | | Max: | | | 36.6 | | | C | | | (97.9 | | | F)Re | | | sp | | | Avg: | | | 16 | | | Min: | | | 16 | | | Max: | | | 16SpO2 | | | Avg: | | | 99.8 | | | % | | | Min: | | | 99 % | | | Max: | | | 100 | | | %Gen: | | | thin | | | male, | | | lying | | | in | | | bedHEE | | | NT: | | | dobhof | | | f in | | | placeC | | | V: | | | RRRPul | | | m: | | | Breath | | | ing | | | comfor | | | tably. | | | Abd: | | | Bowel | | | sounds | | | | | | presen | | | t. | | | Soft, | | | nondis | | | tended | | | , +TTP | | | in | | | epigas | | | tric | | | region | | | Psych: | | | | | | approp | | | riatel | | | y | | | conver | | | sation | | | alNeur | | | o: | | | Moving | | | all | | | extrem | | | ities, | | | | | | grossl | | | y | | | intact | | | .Skin: | | | No | | | jaundi | | | ceLABS | | | CBC | | | with | | | diff | | | last | | | 72 | | | hours | | | (or 3 | | | result | | | s)No | | | result | | | s for | | | input( | | | s): | | | WBC, | | | HB, | | | HCT, | | | PLT, | | | NEUTRO | | | PERC, | | | BANDSP | | | CT, | | | LYMPHP | | | ERC, | | | MONOPE | | | RC, | | | BASOPE | | | RC, | | | EOSPER | | | C in | | | the | | | last | | | 72 | | | hours. | | | Recent | | | Labs | | | | | | 01/03/ | | | 17 | | | 0711 | | | 01/04/ | | | 17 | | | 1033 | | | | | | 01/06/ | | | 17 | | | 1556 | | | | | | /07/ | | | 17 | | | 0416 | | | | | | /08/ | | | 17 | | | 0529 | | | | | | /08/ | | | 17 | | | 1514 | | | | | | /08/ | | | 17 | | | 2346 | | | // | | | 17 | | | 0546 | | | // | | | 17 | | | 1154 | | | NA | | | 140 | | | 141 | | | < > | | | 138 | | | -- | | | 136 | | | -- | | | 138 | | | -- | | | 138 | | | -- | | | -- | | | -- | | | -- K | | | 3.3* | | | 3.4 | | | < > | | | 4.5 | | | -- | | | 4.2 | | | -- | | | 4.1 | | | -- | | | 4.1 | | | -- | | | -- | | | -- | | | -- CL | | | 105 | | | 104 | | | < > | | | 107 | | | -- | | | 103 | | | -- | | | 105 | | | -- | | | 104 | | | -- | | | -- | | | -- | | | -- | | | BICARB | | | 26 | | | 22 < | | | > 23 | | | -- | | | 24 | | | -- | | | 24 | | | -- | | | 24 | | | -- | | | -- | | | -- | | | -- | | | BUN 9 | | | 9 | | | < > 6 | | | -- | | | 9 | | | -- | | | 13 | | | -- | | | 15 | | | -- | | | -- | | | -- | | | -- CR | | | | | | 0.66* | | | 0.65* | | | < > | | | | | | 0.56* | | | -- | | | 0.52* | | | -- | | | | | | 0.56* | | | -- | | | 0.60* | | | -- | | | -- | | | -- | | | -- | | | GLU | | | 83 | | | 57* | | | < > | | | 95 < | | | > 90 | | | < > | | | 94 | | | < > | | | 99 < | | | > | | | 100* | | | 114* | | | 117* | | | CA | | | 7.6* | | | 8.7 | | | < > | | | 8.1* | | | -- | | | 7.5* | | | -- | | | 8.2* | | | -- | | | 8.0* | | | -- | | | -- | | | -- | | | -- | | | AST | | | 13 20 | | | -- | | | -- | | | -- | | | -- | | | -- | | | -- | | | -- | | | -- | | | -- | | | -- | | | -- | | | -- | | | ALT | | | 11 13 | | | -- | | | -- | | | -- | | | -- | | | -- | | | -- | | | -- | | | -- | | | -- | | | -- | | | -- | | | -- | | | AP | | | 46* | | | 56 | | | -- | | | -- | | | -- | | | -- | | | -- | | | -- | | | -- | | | -- | | | -- | | | -- | | | -- | | | -- | | | TBILI | | | 0.3 | | | 0.5 | | | -- | | | -- | | | -- | | | -- | | | -- | | | -- | | | -- | | | -- | | | -- | | | -- | | | -- | | | -- TP | | | 5.6* | | | 6.6 | | | -- | | | -- | | | -- | | | -- | | | -- | | | -- | | | -- | | | -- | | | -- | | | -- | | | -- | | | -- | | | ALB | | | 2.7* | | | 3.1* | | | | 3.1* | | | -- | | | 2.9* | | | -- | | | 3.0* | | | -- | | | 2.9* | | | -- | | | -- | | | -- | | | -- | | | -- | | | -- | | | ANIONG | | | AP 9 | | | 15 | | | < > 8 | | | -- | | | 9 | | | -- 9 | | | -- | | | 10 | | | -- | | | -- | | | -- | | | -- | | | ANIONA | | | LBCOR | | | 12* | | | 17* | | | -- | | | 10 | | | -- | | | 11 | | | -- | | | 11 | | | -- | | | -- | | | -- | | | -- | | | -- | | | -- < | | | > = | | | values | | | in | | | this | | | interv | | | al not | | | | | | displa | | | yed. | | | Lab | | | Result | | | s | | | Compon | | | ent | | | Value | | | Date | | | INRPT | | | 0.99 | | | 08/04/ | | | 2015 | | | IMAGIN | | | GCT | | | multip | | | hase | | | pancre | | | as and | | | | | | pelvis | | | with | | | IV | | | contra | | | st | | | ( | | | 7):GI | | | TRACT: | | | | | | Severe | | | ly | | | disten | | | ded, | | | fluid- | | | filled | | | | | | stomac | | | h. | | | Dobbho | | | ff | | | tube | | | tip is | | | | | | within | | | the | | | gastri | | | c | | | body. | | | The | | | 1st | | | and | | | 2nd | | | portio | | | ns of | | | the | | | duoden | | | um are | | | also | | | dilate | | | d, and | | | there | | | is a | | | small | | | duoden | | | al | | | divert | | | iculum | | | | | | arisin | | | g at | | | the | | | juncti | | | on of | | | the | | | 2nd | | | and | | | 3rd | | | portio | | | ns. | | | There | | | is | | | narrow | | | ing of | | | the | | | 3rd | | | portio | | | n of | | | the | | | duoden | | | um as | | | it | | | course | | | s | | | incoming inspector | | | ior to | | | the | | | superi | | | or | | | mesent | | | parveen | | | artery | | | , and | | | there | | | is an | | | abnorm | | | al | | | decrea | | | sed | | | Aorto- | | | SMA | | | angle | | | of | | | approx | | | imatel | | | y 14 | | | degree | | | s | | | (sagit | | | jocelyn | | | image | | | 93). | | | Distal | | | ly, | | | the | | | bowel | | | loops | | | are | | | collap | | | sed. | | | Oral | | | contra | | | st | | | from | | | prior | | | fluoro | | | scopy | | | study | | | is in | | | the | | | colon. | | | IMPRES | | | WENCESLAO: | | | 1. No | | | malign | | | lei | | | identi | | | fied. | | | 2. SMA | | | | | | syndro | | | me may | | | be | | | consid | | | ered | | | given | | | the | | | patien | | | t's | | | weight | | | loss, | | | | | | narrow | | | . | | | Aorto- | | | SMA | | | angle, | | | and | | | the | | | dilate | | | d, | | | fluid- | | | filled | | | | | | stomac | | | h and | | | proxim | | | al | | | duoden | | | um. | | | UGI | | | w/ KUB | | | | | | ( | | | 7): | | | *NG | | | tube | | | in | | | place | | | at | | | time | | | of | | | evalua | | | tion, | | | limiti | | | ng | | | evalua | | | tion | | | of | | | esopha | | | gusIMP | | | RESSIO | | | N: 1. | | | No | | | gross | | | esopha | | | geal | | | dysmot | | | ility, | | | mass | | | or | | | strict | | | ure. | | | 2. | | | Appr | | | oximat | | | roslyn | | | 3.9 x | | | 2.6 cm | | | D3 | | | segmen | | | t | | | duoden | | | al | | | divert | | | iculum | | | . 3. | | | Cont | | | rast | | | was | | | visual | | | ized | | | crossi | | | ng the | | | | | | midlin | | | e with | | | | | | transi | | | t from | | | the | | | duoden | | | um to | | | jejunu | | | m, | | | howeve | | | r | | | there | | | was | | | substa | | | ntial | | | delaye | | | d | | | transi | | | t of | | | contra | | | st | | | throug | | | h the | | | stomac | | | h and | | | duoden | | | um | | | proxim | | | al to | | | the D3 | | | | | | duoden | | | al | | | divert | | | iculum | | | . | | | Find | | | ings | | | may be | | | | | | compat | | | ible | | | with | | | an | | | interm | | | ittent | | | | | | SMA-ty | | | pe | | | syndro | | | me, | | | howeve | | | r also | | | raise | | | | | | concer | | | n for | | | delaye | | | d | | | gastri | | | c | | | emptyi | | | ng. | | | X-ra | | | y | | | abdome | | | n | | | ( | | | 7)IMPR | | | ESSION | | | : | | | Succes | | | sful | | | Dobbho | | | ff | | | tube | | | advanc | | | ement | | | to the | | | | | | ligame | | | nt of | | | Treitz | | | . | +---+--------+ + +--------+ + + + | CAPILLARY BLOOD | Routin | 07/29/2016 | Intestinal | Results for this | | GLUCOSE (NO CHG), | e | 11:35 AM | obstruction, | procedure are in the | | POC | | PST | unspecified type | results section. | | | | | (HCC) | | + +--------+ + + + | CBC (HEMOGRAM) ONLY | Routin | 07/29/2016 | | Results for this | | | e | 9:26 AM | | procedure are in the | | | | PST | | results section. | + +--------+ + + + | CBC ONLY | Routin | 07/29/2016 | | Results for this | | | e | 9:26 AM | | procedure are in the | | | | PST | | results section. | + +--------+ + + + | PREALBUMIN, SERUM | Routin | 07/29/2016 | | Results for this | | | e | 5:14 AM | | procedure are in the | | | | PST | | results section. | + +--------+ + + + | INR | Urgent | 07/29/2016 | | Results for this | | | | 4:04 AM | | procedure are in the | | | | PST | | results section. | + +--------+ + + + | RENAL FUNCTION SET | Routin | 07/29/2016 | | Results for this | | (NA,K,CL,CO2,BUN,CRE | e | 4:04 AM | | procedure are in the | | AT,GLUC,CA,PHOS,ALB | | PST | | results section. | | ) | | | | | + +--------+ + + + | APTT (ACT. PART. | Urgent | 07/29/2016 | | Results for this | | THROMBO TIME) | | 4:04 AM | | procedure are in the | | | | PST | | results section. | + +--------+ + + + | MAGNESIUM, PLASMA | Routin | 07/29/2016 | | Results for this | | | e | 4:04 AM | | procedure are in the | | | | PST | | results section. | + +--------+ + + + | CAPILLARY BLOOD | Routin | 07/29/2016 | Intestinal | Results for this | | GLUCOSE (NO CHG), | e | 12:17 AM | obstruction, | procedure are in the | | POC | | PST | unspecified type | results section. | | | | | (HCC) | | + +--------+ + + + | COLONOSCOPY | | 07/29/2016 | | Results for this | | | | 12:00 AM | | procedure are in the | | | | PST | | results section. | + +--------+ + + + | EGD | | 07/29/2016 | | Results for this | | | | 12:00 AM | | procedure are in the | | | | PST | | results section. | + +--------+ + + + | SURGICAL PATHOLOGY | Routin | 07/29/2016 | | Results for this | | | e | | | procedure are in the | | | | | | results section. | + +--------+ + + + | CAPILLARY BLOOD | Routin | 07/28/2016 | Intestinal | Results for this | | GLUCOSE (NO CHG), | e | 11:54 AM | obstruction, | procedure are in the | | POC | | PST | unspecified type | results section. | | | | | (HCC) | | + +--------+ + + + | CAPILLARY BLOOD | Routin | 07/28/2016 | Intestinal | Results for this | | GLUCOSE (NO CHG), | e | 5:46 AM | obstruction, | procedure are in the | | POC | | PST | unspecified type | results section. | | | | | (HCC) | | + +--------+ + + + | CAPILLARY BLOOD | Routin | 07/27/2016 | Intestinal | Results for this | | GLUCOSE (NO CHG), | e | 11:46 PM | obstruction, | procedure are in the | | POC | | PST | unspecified type | results section. | | | | | (HCC) | | + +--------+ + + + | CAPILLARY BLOOD | Routin | 07/27/2016 | Intestinal | Results for this | | GLUCOSE (NO CHG), | e | 6:05 PM | obstruction, | procedure are in the | | POC | | PST | unspecified type | results section. | | | | | (HCC) | | + +--------+ + + + | OCCULT BLOOD, FECES, | Routin | 07/27/2016 | | Results for this | | SCREEN | e | 3:45 PM | | procedure are in the | | | | PST | | results section. | + +--------+ + + + | BASIC METABOLIC SET | Routin | 07/27/2016 | | Results for this | | (NA, K, CL, TCO2, | e | 3:14 PM | | procedure are in the | | BUN, CR, GLU, CA) | | PST | | results section. | + +--------+ + + + | CAPILLARY BLOOD | Routin | 07/27/2016 | Intestinal | Results for this | | GLUCOSE (NO CHG), | e | 12:43 PM | obstruction, | procedure are in the | | POC | | PST | unspecified type | results section. | | | | | (HCC) | | + +--------+ + + + | CAPILLARY BLOOD | Routin | 07/27/2016 | Intestinal | Results for this | | GLUCOSE (NO CHG), | e | 5:44 AM | obstruction, | procedure are in the | | POC | | PST | unspecified type | results section. | | | | | (HCC) | | + +--------+ + + + | RENAL FUNCTION SET | Routin | 07/27/2016 | | Results for this | | (NA,K,CL,CO2,BUN,CRE | e | 5:29 AM | | procedure are in the | | AT,GLUC,CA,PHOS,ALB | | PST | | results section. | | ) | | | | | + +--------+ + + + | MAGNESIUM, PLASMA | Routin | 07/27/2016 | | Results for this | | | e | 5:29 AM | | procedure are in the | | | | PST | | results section. | + +--------+ + + + | CAPILLARY BLOOD | Routin | 07/27/2016 | Intestinal | Results for this | | GLUCOSE (NO CHG), | e | 12:19 AM | obstruction, | procedure are in the | | POC | | PST | unspecified type | results section. | | | | | (HCC) | | + +--------+ + + + | CAPILLARY BLOOD | Routin | 07/26/2016 | Intestinal | Results for this | | GLUCOSE (NO CHG), | e | 6:42 PM | obstruction, | procedure are in the | | POC | | PST | unspecified type | results section. | | | | | (HCC) | | + +--------+ + + + | CAPILLARY BLOOD | Routin | 07/26/2016 | Intestinal | Results for this | | GLUCOSE (NO CHG), | e | 2:43 PM | obstruction, | procedure are in the | | POC | | PST | unspecified type | results section. | | | | | (HCC) | | + +--------+ + + + | REPOSITION GASTRIC | Routin | 07/26/2016 | | Results for this | | FEED TUBE W/ FLUORO | e | 11:33 AM | | procedure are in the | | | | PST | | results section. | + +--------+ + + + | CAPILLARY BLOOD | Routin | 07/26/2016 | Intestinal | Results for this | | GLUCOSE (NO CHG), | e | 6:06 AM | obstruction, | procedure are in the | | POC | | PST | unspecified type | results section. | | | | | (HCC) | | + +--------+ + + + | RENAL FUNCTION SET | Routin | 07/26/2016 | | Results for this | | (NA,K,CL,CO2,BUN,CRE | e | 4:16 AM | | procedure are in the | | AT,GLUC,CA,PHOS,ALB | | PST | | results section. | | ) | | | | | + +--------+ + + + | MAGNESIUM, PLASMA | Routin | 07/26/2016 | | Results for this | | | e | 4:16 AM | | procedure are in the | | | | PST | | results section. | + +--------+ + + + | CAPILLARY BLOOD | Routin | 07/26/2016 | Intestinal | Results for this | | GLUCOSE (NO CHG), | e | 12:21 AM | obstruction, | procedure are in the | | POC | | PST | unspecified type | results section. | | | | | (HCC) | | + +--------+ + + + | CAPILLARY BLOOD | Routin | 07/25/2016 | Intestinal | Results for this | | GLUCOSE (NO CHG), | e | 6:39 PM | obstruction, | procedure are in the | | POC | | PST | unspecified type | results section. | | | | | (HCC) | | + +--------+ + + + | RENAL FUNCTION SET | Routin | 07/25/2016 | | Results for this | | (NA,K,CL,CO2,BUN,CRE | e | 3:56 PM | | procedure are in the | | AT,GLUC,CA,PHOS,ALB | | PST | | results section. | | ) | | | | | + +--------+ + + + | MAGNESIUM, PLASMA | Routin | 07/25/2016 | | Results for this | | | e | 3:56 PM | | procedure are in the | | | | PST | | results section. | + +--------+ + + + | X-RAY INTRODUCTION | Routin | 07/25/2016 | | Results for this | | NASO OR ASHLEY-GASTRIC | e | 1:04 PM | | procedure are in the | | TUBE, REQ PHYSICIAN | | PST | | results section. | | SKILL | | | | | + +--------+ + + + | CAPILLARY BLOOD | Routin | 07/25/2016 | Intestinal | Results for this | | GLUCOSE (NO CHG), | e | 12:04 PM | obstruction, | procedure are in the | | POC | | PST | unspecified type | results section. | | | | | (HCC) | | + +--------+ + + + | BASIC METABOLIC SET | Urgent | 07/25/2016 | | Results for this | | (NA, K, CL, TCO2, | | 11:34 AM | | procedure are in the | | BUN, CR, GLU, CA) | | PST | | results section. | + +--------+ + + + | PHOSPHORUS, PLASMA | Routin | 07/25/2016 | | Results for this | | | e | 11:34 AM | | procedure are in the | | | | PST | | results section. | + +--------+ + + + | VASC LAB PORTABLE | Routin | 07/25/2016 | | Results for this | | VENOUS DUPLEX LOWER | e | 8:44 AM | | procedure are in the | | EXTREMITY BILATERAL | | PST | | results section. | | COMPLETE | | | | | + +--------+ + + + | CAPILLARY BLOOD | Routin | 07/25/2016 | Intestinal | Results for this | | GLUCOSE (NO CHG), | e | 5:27 AM | obstruction, | procedure are in the | | POC | | PST | unspecified type | results section. | | | | | (HCC) | | + +--------+ + + + | CAPILLARY BLOOD | Routin | 07/25/2016 | Intestinal | Results for this | | GLUCOSE (NO CHG), | e | 12:05 AM | obstruction, | procedure are in the | | POC | | PST | unspecified type | results section. | | | | | (HCC) | | + +--------+ + + + | BASIC METABOLIC SET | Routin | 07/24/2016 | | Results for this | | (NA, K, CL, TCO2, | e | 11:53 PM | | procedure are in the | | BUN, CR, GLU, CA) | | PST | | results section. | + +--------+ + + + | PHOSPHORUS, PLASMA | Routin | 07/24/2016 | | Results for this | | | e | 11:53 PM | | procedure are in the | | | | PST | | results section. | + +--------+ + + + | CT MULTIPHASE | Urgent | 07/24/2016 | | Results for this | | PANCREAS AND PELVIS | | 8:40 PM | | procedure are in the | | W IV CONTRAST | | PST | | results section. | + +--------+ + + + | CAPILLARY BLOOD | Routin | 07/24/2016 | Intestinal | Results for this | | GLUCOSE (NO CHG), | e | 5:49 PM | obstruction, | procedure are in the | | POC | | PST | unspecified type | results section. | | | | | (HCC) | | + +--------+ + + + | BASIC METABOLIC SET | Routin | 07/24/2016 | | Results for this | | (NA, K, CL, TCO2, | e | 4:30 PM | | procedure are in the | | BUN, CR, GLU, CA) | | PST | | results section. | + +--------+ + + + | PHOSPHORUS, PLASMA | Routin | 07/24/2016 | | Results for this | | | e | 4:30 PM | | procedure are in the | | | | PST | | results section. | + +--------+ + + + | X-RAY ABD LTD | Urgent | 07/24/2016 | | Results for this | | FEEDING TUBE EVAL | | 3:05 PM | | procedure are in the | | | | PST | | results section. | + +--------+ + + + | CAPILLARY BLOOD | Routin | 07/24/2016 | Intestinal | Results for this | | GLUCOSE (NO CHG), | e | 12:00 PM | obstruction, | procedure are in the | | POC | | PST | unspecified type | results section. | | | | | (HCC) | | + +--------+ + + + | BASIC METABOLIC SET | Routin | 07/24/2016 | | Results for this | | (NA, K, CL, TCO2, | e | 6:43 AM | | procedure are in the | | BUN, CR, GLU, CA) | | PST | | results section. | + +--------+ + + + | PHOSPHORUS, PLASMA | Routin | 07/24/2016 | | Results for this | | | e | 6:43 AM | | procedure are in the | | | | PST | | results section. | + +--------+ + + + | MAGNESIUM, PLASMA | Routin | 07/24/2016 | | Results for this | | | e | 6:43 AM | | procedure are in the | | | | PST | | results section. | + +--------+ + + + | CAPILLARY BLOOD | Routin | 07/24/2016 | Intestinal | Results for this | | GLUCOSE (NO CHG), | e | 6:26 AM | obstruction, | procedure are in the | | POC | | PST | unspecified type | results section. | | | | | (HCC) | | + +--------+ + + + | CARCINOEMBRYONIC AG, | Routin | 07/24/2016 | | Results for this | | SERUM | e | 3:25 AM | | procedure are in the | | | | PST | | results section. | + +--------+ + + + | CANCER AG GI (19-9), | Routin | 07/24/2016 | | Results for this | | SERUM | e | 3:25 AM | | procedure are in the | | | | PST | | results section. | + +--------+ + + + | CAPILLARY BLOOD | Routin | 07/24/2016 | Intestinal | Results for this | | GLUCOSE (NO CHG), | e | 12:24 AM | obstruction, | procedure are in the | | POC | | PST | unspecified type | results section. | | | | | (HCC) | | + +--------+ + + + | BASIC METABOLIC SET | Routin | 07/24/2016 | | Results for this | | (NA, K, CL, TCO2, | e | 12:18 AM | | procedure are in the | | BUN, CR, GLU, CA) | | PST | | results section. | + +--------+ + + + | PHOSPHORUS, PLASMA | Routin | 07/24/2016 | | Results for this | | | e | 12:18 AM | | procedure are in the | | | | PST | | results section. | + +--------+ + + + | CAPILLARY BLOOD | Routin | 07/23/2016 | Intestinal | Results for this | | GLUCOSE (NO CHG), | e | 8:23 PM | obstruction, | procedure are in the | | POC | | PST | unspecified type | results section. | | | | | (HCC) | | + +--------+ + + + | X-RAY UGI W KUB | Routin | 07/23/2016 | | Results for this | | | e | 4:01 PM | | procedure are in the | | | | PST | | results section. | + +--------+ + + + | X-RAY PORTABLE CHEST | Urgent | 07/23/2016 | | Results for this | | 1 VIEW | | 3:10 PM | | procedure are in the | | | | PST | | results section. | + +--------+ + + + | PICC LINE | Routin | 07/23/2016 | | Results for this | | | e | 2:46 PM | | procedure are in the | | | | PST | | results section. | + +--------+ + + + | CBC (HEMOGRAM) ONLY | Routin | 07/23/2016 | | Results for this | | | e | 10:33 AM | | procedure are in the | | | | PST | | results section. | + +--------+ + + + | LIVER SET | Routin | 07/23/2016 | | Results for this | | (AST,ALT,BILI | e | 10:33 AM | | procedure are in the | | TOTAL,BILI | | PST | | results section. | | DIRECT,ALK | | | | | | PHOS,ALB,PROT TOTAL) | | | | | + +--------+ + + + | RENAL FUNCTION SET | Routin | 07/23/2016 | | Results for this | | (NA,K,CL,CO2,BUN,CRE | e | 10:33 AM | | procedure are in the | | AT,GLUC,CA,PHOS,ALB | | PST | | results section. | | ) | | | | | + +--------+ + + + | C-REACTIVE PROTEIN | Routin | 07/23/2016 | | Results for this | | | e | 10:33 AM | | procedure are in the | | | | PST | | results section. | + +--------+ + + + | CBC ONLY | Routin | 07/23/2016 | | Results for this | | | e | 10:33 AM | | procedure are in the | | | | PST | | results section. | + +--------+ + + + | MAGNESIUM, PLASMA | Routin | 07/23/2016 | | Results for this | | | e | 10:33 AM | | procedure are in the | | | | PST | | results section. | + +--------+ + + + | X-RAY PORTABLE 2 | Routin | 07/22/2016 | | Results for this | | VIEW ABDOMEN (KUB | e | 6:54 PM | | procedure are in the | | AND UPRIGHT) | | PST | | results section. | + +--------+ + + + | X-RAY ABD LTD | Routin | 07/22/2016 | | Results for this | | FEEDING TUBE EVAL | e | 10:40 AM | | procedure are in the | | PORTABLE | | PST | | results section. | + +--------+ + + + | CBC AND AUTO DIFF | Routin | 07/22/2016 | | Results for this | | | e | 7:11 AM | | procedure are in the | | | | PST | | results section. | + +--------+ + + + | CBC, WITH | Routin | 07/22/2016 | | Results for this | | DIFFERENTIAL | e | 7:11 AM | | procedure are in the | | | | PST | | results section. | + +--------+ + + + | PREALBUMIN, SERUM | Routin | 07/22/2016 | | Results for this | | | e | 7:11 AM | | procedure are in the | | | | PST | | results section. | + +--------+ + + + | COMPLETE METABOLIC | Routin | 07/22/2016 | | Results for this | | SET | e | 7:11 AM | | procedure are in the | | (NA,K,CL,CO2,BUN,CRE | | PST | | results section. | | AT,GLUC,CA,AST,ALT,B | | | | | | LEANNA TOTAL,ALK | | | | | | PHOS,ALB,PROT TOTAL) | | | | | + +--------+ + + + | PHOSPHORUS, PLASMA | Routin | 07/22/2016 | | Results for this | | | e | 7:11 AM | | procedure are in the | | | | PST | | results section. | + +--------+ + + + | MAGNESIUM, PLASMA | Routin | 07/22/2016 | | Results for this | | | e | 7:11 AM | | procedure are in the | | | | PST | | results section. | + +--------+ + + + documented in this encounter Results VAS LAB PORTABLE VENOUS DUPLEX LOWER EXTREMITY BILATERAL COMPLETE (08/01/2016 9:33 AM PST ) + + + + + + | Component | Value | Ref Range | Performed | Pathologist | | | | | At | Signature | + + + + + + | VASC LAB | Bilateral: The duplex | | | | | PORTABLE | scanner was used to | | | | | VENOUS | examine the deep and | | | | | DUPLEX | superficialveins of the | | | | | LOWER | right and left lower | | | | | EXTREMITY | extremities. The | | | | | BILATERAL | veins are | | | | | COMPLETE | patentbilaterally with | | | | | | normal flows and | | | | | | responses to | | | | | | augmentation and | | | | | | compressionmaneuvers and | | | | | | no thrombus is noted. | | | | | | Conclusions: A normal | | | | | | venous examination of | | | | | | the bilateral lower | | | | | | extremities. Novenous | | | | | | thrombosis was detected. | | | | | | Attending | | | | | | Radiologists: MILTON | | | | | | VANI ARIZAuthor: | | | | | | MILTON ARIZA MD I | | | | | | have personally viewed | | | | | | this procedure/exam, | | | | | | reviewed this report, | | | | | | and madechanges to it | | | | | | where appropriate. | | | | | | Final/Electronically | | | | | | signed / MILTON | | | | | | ANNITA 08/01/2016 9:41 | | | | | | AM Preliminary / | | | | | | MILTON ARIZA | | | | | | 08/01/2016 9:33 AM | | | | + + + + + + + + | Specimen | + + | | + + + +---------+ + + | Performing | Address | City/State/Zipcode | Phone Number | | Organization | | | | + +---------+ + + | [facility] DEPARTMENT OF | | | | | RADIOLOGY | | | | + +---------+ + + PROCEDURE NOTE (08/01/2016 9:20 AM PST) + + + | Narrative | Performed At | + + + | Travis Maldonado MD 07/31/2016 7:19 PM Gastroenterology Procedure | | | Note 07/31/2016 Please refer to the [facility] endoscopic report | | | imported under the Procedures tab in Chart Review for full details. | | | Procedure: EGD with moderate sedation Attending: Harish Sanchez | | | Fellow: Travis Maldonado MD Sedation: fentanyl 200mcg, versed 6mg | | | The patient tolerated the procedure well without apparent | | | complications. Procedure Findings: - savary wire was placed | | | into dobhoff to 80cm, in order to stiffen the dobhoff tube and help | | | prevent dislodging of dobhoff tube - esophagitis - stricture noted | | | at 35cm, some resistance passing gastroscope - gastroscope advanced | | | into stomach, dobhoff tube noted passing into pylorus - wire-guided | | | balloon advanced into stomach under direct visualization and then | | | withdrawn until mid-point of balloon at 35cm, dilated to 11mm with | | | no resistance, then 12mm, then 13mm. The area of stricture was | | | inspected with small amount of blood noted, gastroscope passed much | | | easier. Impression: EGD with dilation to 13mm | | | Recommendations: - continue PPI - repeat EGD with dilation in 1-2 | | | weeks (can be coordinated with his appointment to see surgery) - | | | check ferritin, iron studies. May benefit from Venofer if low. | | | The procedure was supervised by the Gastroenterology attending, | | | Laura, who was present in the room during the entire procedure. | | | Travis Maldonado MD Fellow, Division of Gastroenterology and Hepatology | | | | | + + + IRON AND TIBC (07/31/2016 8:16 PM PST) + +--------+ + + + | Component | Value | Ref Range | Performed | Pathologist | | | | | At | Signature | + +--------+ + + + | IRON | 25 (L) | 50 - 170 ug/dL | [facility] | | | | | | LABORATORY | | | | | | SERVICES, | | | | | | CORE | | + +--------+ + + + | IRON BIND | 403 | 240 - 450 ug/dL | [facility] | | | CAP | | | LABORATORY | | | | | | SERVICES, | | | | | | CORE | | + +--------+ + + + | % | 6 (L) | 20 - 50 % | [facility] | | | SATURATION | | | LABORATORY | | | TRANSFERRIN | | | SERVICES, | | | , | | | CORE | | + +--------+ + + + + + | Specimen | + + | Blood - Blood | | (substance) | + + + + + + + | Performing | Address | City/State/Zipcode | Phone Number | | Organization | | | | + + + + + | [facility] | [phone] | [place] [address] | | | SERVICES, CORE | [address] | | | + + + + + FERRITIN (07/31/2016 8:16 PM PST) + + + + + + | Component | Value | Ref Range | Performed | Pathologist | | | | | At | Signature | + + + + + + | FERRITIN | 3 (L)Comment: Male and | 50 - 200 ng/mL | [facility] | | | | Female >18 years: | | LABORATORY | | | | <20 ng/mL: | | SERVICES, | | | | Consistant with iron | | CORE | | | | deficiency 21-50 | | | | | | ng/mL: Possible | | | | | | iron deficiency 51-99 | | | | | | ng/mL: Iron | | | | | | deficiency unlikely | | | | | | unless inflammation | | | | | | present or | | | | | | patient | | | | | | >67 years of age | | | | | | 100-200 ng/mL: | | | | | | Normal, not consistent | | | | | | with iron deficiency | | | | | | >200 ng/mL: If | | | | | | transferrin saturation | | | | | | >45%, consider | | | | | | hemochromatosis | | | | + + + + + + + + | Specimen | + + | Blood - Blood | | (substance) | + + + + + + + | Performing | Address | City/State/Zipcode | Phone Number | | Organization | | | | + + + + + | [facility] | [address] | [place] [address] | | | SERVICES, [facility] | [address] | | | + + + + + CT CHEST W CONTRAST (07/31/2016 9:35 AM PST) + + + + + + | Component | Value | Ref Range | Performed | Pathologist | | | | | At | Signature | + + + + + + | CT CHEST W | EXAM: CT CHEST W | | | | | CONTRAST | CONTRAST 07/31/16 | | | | | | 09:35:00 HISTORY: | | | | | | 55-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 History | | | | | | of smoking, evaluatefor | | | | | | malignancy. COMPARISON: | | | | | | 07/24/[address], | | | | | | 07/23/16 chest radiograph. | | | | | | No prior chest CT. | | | | | | TECHNIQUE: Following | | | | | | uneventful | | | | | | administration of 100 ml | | | | | | Omnipaque | | | | | | 350intravenous contrast | | | | | | helical scanning was | | | | | | obtained of the chest, | | | | | | and reviewedin soft | | | | | | tissue and lung | | | | | | algorithm. Coronal and | | | | | | sagittal images were | | | | | | alsogenerated. FINDINGS: | | | | | | A circumscribed 6 mm | | | | | | right thyroid lobe | | | | | | nodule is incidentally | | | | | | noted. Noadditional | | | | | | followup is required | | | | | | given size and age | | | | | | criteria. The thyroid | | | | | | isotherwise | | | | | | unremarkable. | | | | | | Mediastinal nodes are | | | | | | more notable for number | | | | | | thansize. There is no | | | | | | mediastinal, hilar or | | | | | | axillary adenopathy.. | | | | | | The heart iswithin | | | | | | normal limits of size. | | | | | | There is no pericardial | | | | | | effusion. 3 mm | | | | | | peripheral right upper | | | | | | lobe (axial 73), 4 mm | | | | | | left upper lobe (axial | | | | | | 52), 3mm lingular (axial | | | | | | 99), and 3 mm | | | | | | Perifissural left lower | | | | | | lobe (axial 84)pulmonary | | | | | | nodules are present. | | | | | | Mild upper lobe | | | | | | predominant | | | | | | centrilobularemphysema | | | | | | is noted. There is no | | | | | | consolidation, pleural | | | | | | effusion orpneumothorax. | | | | | | A Dobbhoff tube is | | | | | | incompletely visualized, | | | | | | though extends to | | | | | | within theproximal | | | | | | jejunum. The visualized | | | | | | portions of the upper | | | | | | abdomen are | | | | | | otherwiseunremarkable. | | | | | | No suspicious osseous | | | | | | lesion is evident. | | | | | | IMPRESSION: Sub-5 mm | | | | | | pulmonary nodules, most | | | | | | likely postinflammatory. | | | | | | One year | | | | | | followupnoncontrast | | | | | | chest CT suggested. | | | | | | Attending Radiologists: | | | | | | DALILA GUALLPA, | | | | | | MDAuthor: IRVIN | | | | | | MD LEE I | | | | | | personally reviewed the | | | | | | images and, if | | | | | | necessary, edited the | | | | | | report. I agreewith the | | | | | | report as now presented. | | | | | | | | | | | | Final/Electronically | | | | | | signed / DALILA | | | | | | RAMU 07/31/2016 11:29 | | | | | | AM | | | | + + + + + + + + | Specimen | + + | | + + + +---------+ + + | Performing | Address | City/State/Zipcode | Phone Number | | Organization | | | | + +---------+ + + | [facility] DEPARTMENT OF | | | | | RADIOLOGY | | | | + +---------+ + + ANTIBODY SCREEN (07/31/2016 8:28 AM PST) + + + + + [...] + + | Blood - Blood | | (substance) | + + + + + + + | Performing | Address | City/State/Zipcode | Phone Number | | Organization | | | | + + + + + | [facility] | [address] | [place] [address] | | | SERVICES, | [address] | | | | TRANSFUSION MEDICINE | | | | + + + + + ABO & RH TYPE (07/31/2016 8:28 AM PST) + + + + + [...] + + | Blood - Blood | | (substance) | + + + + + + + | Performing | Address | City/State/Zipcode | Phone Number | | Organization | | | | + + + + + | [facility] | [address] | [place] [address] | | | SERVICES, | [address] | | | | TRANSFUSION MEDICINE | | | | + + + + + PRODUCT - RED CELLS LEUKOREDUCED (07/31/2016 6:40 AM PST) + + + + + + | Component | Value | Ref Range | Performed | Pathologist | | | | | At | Signature | + + + + + + | PRODUCT | -1 RED BLOOD CELL | | [facility] | | | DESCRIPTION | ADENINE-SALINE ADDED | | LABORATORY | | | | LEUKOCYTE | | SERVICES, | | | | | | TRANSFUSION | | | | | | MEDICINE | | + + + + + + | PRODUCT | [id number] | | [facility] | | | UNIT # | | | LABORATORY | | | | | | SERVICES, | | | | | | TRANSFUSION | | | | | | MEDICINE | | + + + + + + | UNIT ABO | O | | [facility] | | | | | | LABORATORY | | | | | | SERVICES, | | | | | | TRANSFUSION | | | | | | MEDICINE | | + + + + + + | UNIT RH | POS | | [facility] | | | | | | LABORATORY | | | | | | SERVICES, | | | | | | TRANSFUSION | | | | | | MEDICINE | | + + + + + + | STATUS OF | Presumed Transfused | | [facility] | | | UNIT | | | LABORATORY | | | | | | SERVICES, | | | | | | TRANSFUSION | | | | | | MEDICINE | | + + + + + + | EXPIRATION | [id number] | | [facility] | | | DATE | | | LABORATORY | | | | | | SERVICES, | | | | | | TRANSFUSION | | | | | | MEDICINE | | + + + + + + | BLOOD TYPE | [id number] | | [facility] | | | BARCODE | | | LABORATORY | | | | | | SERVICES, | | | | | | TRANSFUSION | | | | | | MEDICINE | | + + + + + + | BLOOD | [id number] | | [facility] | | | PRODUCT | | | LABORATORY | | | CODE | | | SERVICES, | | | [...] [facility] | [address] | [place] [address] | | | SERVICES, | [address] | | | | TRANSFUSION MEDICINE | | | | + + + + + CBC (HEMOGRAM) ONLY (07/31/2016 5:20 AM PST) + + + + + + | Component | Value | Ref Range | Performed | Pathologist | | | | | At | Signature | + + + + + + | WHITE CELL | 5.05 | 3.50 - 10.80 | [facility] | | | COUNT | | K/cu mm | LABORATORY | | | | | | SERVICES, | | | | | | CORE | | + + + + + + | RED CELL | 3.43 (L) | 4.50 - 6.00 | [facility] | | | COUNT | | M/cu mm | LABORATORY | | | | | | SERVICES, | | | | | | CORE | | + + + + + + | HEMOGLOBIN | 6.8 (L) | 13.5 - 17.5 | [facility] | | | | | g/dL | LABORATORY | | | | | | SERVICES, | | | | | | CORE | | + + + + + + | HEMATOCRIT | 23.3 (L) | 41.0 - 53.0 % | [facility] | | | | | | LABORATORY | | | | | | SERVICES, | | | | | | CORE | | + + + + + + | MCV | 67.9 (L) | 80.0 - 96.0 fL | [facility] | | | | | | LABORATORY | | | | | | SERVICES, | | | | | | CORE | | + + + + + + | MCHC | 29.2 | 33.0 - 35.5 | [facility] | | | | | g/dL | LABORATORY | | | | | | SERVICES, | | | | | | CORE | | + + + + + + | RDW SD | 41.9 | 35.1 - 46.3 fL | [facility] | | | | | | LABORATORY | | | | | | SERVICES, | | | | | | CORE | | + + + + + + | PLATELET | 370 | 150 - 400 K/cu | [facility] | | | COUNT | | mm | LABORATORY | | | | | | SERVICES, | | | | | | CORE | | + + + + + + | MPV | 8.7 (L) | 9.7 - 12.3 fL | [...] + + | Blood - Blood | | (substance) | + + + + + | Narrative | Performed At | + + + | New adult WBC reference ranges effective June 04, 2016. | [facility] | | | LABORATORY | | | SERVICES, CORE | + + + + + + + + | Performing | Address | City/State/Zipcode | Phone Number | | Organization | | | | + + + + + | [facility] | [address] | [place] [address] | | | SERVICES, CORE | [address] | | | + + + + + MAGNESIUM, PLASMA (07/31/2016 5:20 AM PST) + +-------+ + + + [...] + + | Blood - Blood | | (substance) | + + + + + + + | Performing | Address | City/State/Zipcode | Phone Number | | Organization | | | | + + + + + | [facility] | [address] | [place] [address] | | | SERVICES, CORE | [address] | | | + + + + + RENAL FUNCTION SET (NA,K,CL,CO2,BUN,CREAT,GLUC,CA,PHOS,ALB ) (07/31/2016 5:20 AM PST) + + + + + + | Component | Value | Ref Range | Performed | Pathologist | | | | | At | Signature | + + + + + + | GLUCOSE, | 71 | 60 - 99 mg/dL | [facility] | | | PLASMA | | | LABORATORY | | | (LAB) | | | SERVICES, | | | | | | CORE | | + + + + + + | BUN, PLASMA | 9 | 6 - 20 mg/dL | [facility] | | | (LAB) | | | LABORATORY | | | | | | SERVICES, | | | | | | CORE | | + + + + + + | CREATININE | 0.54 (L) | 0.70 - 1.30 | [facility] | | | PLASMA | | mg/dL | LABORATORY | | | (LAB) | | | SERVICES, | | | | | | CORE | | + + + + + + | EGFR | >60 | >60 mL/min | [facility] | | | - | | | LABORATORY | | | JORDANIAN | | | SERVICES, | | | | | | CORE | | + + + + + + | EGFR NON | >60 | >60 mL/min | [facility] | | | -EFRA | | | LABORATORY | | | RICAN | | | SERVICES, | | | | | | CORE | | + + + + + + | SODIUM, | 143 [...] + + + + | CHLORIDE, | 110 [...] + + + + | CALCIUM, | 7.6 (L) | 8.6 - 10.2 | [facility] | | | PLASMA | | mg/dL | LABORATORY | | | (LAB) | | | SERVICES, | | | | | | CORE | | + + + + + + | CALCIUM(ALB | 8.6 | 8.6 - 10.2 | [facility] | | | CORRECTED) | | mg/dL | LABORATORY | | | | | | SERVICES, | | | | | | CORE | | + + + + + + | ALBUMIN, | 2.8 (L) | 3.5 - 4.7 g/dL | [facility] | | | PLASMA | | | LABORATORY | | | (LAB) | | | SERVICES, | | | | | | CORE | | + + + + + + | PHOSPHORUS, | 3.1 [...] + + + + + | ANION | 11 | 4 - 11 mmol/L | [facility] | | | GAP(ALB | | | LABORATORY | | | CORRECTED) | | | SERVICES, | | | | | | CORE | | + + + + + + + + | Specimen | + + | Blood - Blood | | (substance) | + + + + + | [...] | + + + + + | [facility] | [address] | [place] [address] | | | SERVICES, CORE | [address] | | | + + + + + X-RAY ABD LTD FEEDING TUBE EVAL (07/31/2016 4:26 AM PST) + + + + + + | Component | Value | Ref Range | Performed | Pathologist | | | | | At | Signature | + + + + + + | ABD LTD | EXAM: AP view of lower | | | | | FEEDING | chest and upper abdomen | | | | | TUBE EVAL | COMPARISON: 07/26/16 | | | | | | FINDINGS AND IMPRESSION: | | | | | | Technically limited | | | | | | A.P. view of the | | | | | | lowerchest/upper abdomen | | | | | | for purposes of tube | | | | | | placement only | | | | | | demonstrate an | | | | | | entericfeeding tube tube | | | | | | with its distal tip in | | | | | | the left mid abdomen, | | | | | | likely withinjejunum. | | | | | | Left upper chimney | | | | | | PICC line is noted with | | | | | | tip in SVC. Attending | | | | | | Radiologists: RAULITO | | | | | | VANI BOWSERuthor: RAULITO | | | | | | MD MAGUE I personally | | | | | | reviewed the images and, | | | | | | if necessary, edited | | | | | | the report. I agreewith | | | | | | the report as now | | | | | | presented. | | | | | | Final/Electronically | | | | | | signed / RAULITO | | | | | | BOWSER 07/31/2016 8:24 AM | | | | | | | | | | + + + + + + + + | Specimen | + + | | + + + +---------+ + + | Performing | Address | City/State[facility] | Phone Number | | Organization | | | | + +---------+ + + | [facility] DEPARTMENT OF | | | | | RADIOLOGY | | | | + +---------+ + + EGD (07/31/2016 12:00 AM PST) + + + | Narrative | Performed At | + + + | | | + + + RAINBOW HOLD TUBE - PURPLE TOP (07/30/2016 2:41 PM PST) + + | Specimen | + + | Blood - Blood | | (substance) | + + + + + + + | Performing | Address | City/State/Zipcode | Phone Number | | Organization | | | | + + + + + | [facility] | [id number] | [place] [address] | | | SERVICES, CORE | [address] | | | + + + + + RENAL FUNCTION SET (NA,K,CL,CO2,BUN,CREAT,GLUC,CA,PHOS,ALB ) (07/30/2016 11:30 AM PST) + + + + + + | Component | Value | Ref Range | Performed | Pathologist | | | | | At | Signature | + + + + + + | GLUCOSE, | 97 | 60 - 99 mg/dL | [facility] [...] + + + + | CREATININE | 0.54 (L) | 0.70 - 1.30 | [facility] | | | PLASMA | | mg/dL | LABORATORY | | | (LAB) | | | SERVICES, | | | | | | CORE | | + + + + + + | EGFR | >60 | >60 mL/min | [facility] | | | - | | | LABORATORY | | | JORDANIAN | | | SERVICES, | | | | | | CORE | | + + + + + + | EGFR NON | >60 | >60 mL/min | [facility] | | | -EFRA | | | LABORATORY | | | RICAN | | | SERVICES, | | | | | | CORE | | + + + + + + | SODIUM, | 140 [...] + + + + | CHLORIDE, | 108 [...] + + + + | CALCIUM, | 7.9 (L) | 8.6 - 10.2 | [facility] | | | PLASMA | | mg/dL | LABORATORY | | | (LAB) | | | SERVICES, | | | | | | CORE | | + + + + + + | CALCIUM(ALB | 8.7 | 8.6 - 10.2 | [facility] | | | CORRECTED) | | mg/dL | LABORATORY | | | | | | SERVICES, | | | | | | CORE | | + + + + + + | ALBUMIN, | 3.0 (L) | 3.5 - 4.7 g/dL | [facility] | | | PLASMA | | | LABORATORY | | | (LAB) | | | SERVICES, | | | | | | CORE | | + + + + + + | PHOSPHORUS, | 2.9 [...] + + + + + | ANION | 8 | 4 - 11 mmol/L | [facility] | | | GAP(ALB | | | LABORATORY | | | CORRECTED) | | | SERVICES, | | | | | | CORE | | + + + + + + + + | Specimen | + + | Blood - Blood | | (substance) | + + + + + | Narrative | Performed At | + + + | GFR is estimated using the MDRD equation recommended by the | [facility] | | National Kidney Disease Education Program. [...] | + + + + + | [facility] | [address] | [place] [address] | | | SERVICES, CORE | [address] | | | + + + + + HIV QUANTITATIVE PCR, PLASMA (07/30/2016 10:06 AM PST) + + + + + + | Component | Value | Ref Range | Performed | Pathologist | | | | | At | Signature | + + + + + + | HIV-QNT PCR | Undetected | Undetected, | [facility] | | | | | Undetected - | DIAGNOSTIC | | | | | See Below | | | | | | copies/mL | LABORATORIE | | | | | | S | | + + + + + + + + | Specimen | + + | Blood - Blood | | (substance) | + + + + + | Narrative | Performed At | + + + | Reportable Range: 40-10,000,000 HIV-1 copies/mL These results | [facility] | | are most likely suggestive of either the absence of HIV viremia or the | DIAGNOSTIC | | presence of low-level HIV viremia at or below the assays lower | LABORATORIES | | sensitivity limit of 40 copies/mL. High or serially rising HIV | | | viral loads are a poor prognostic indicator for antiviral therapy | | | efficacy and predict a more rapid HIV disease progression. Viral | | | load changes of less than approximately 3 fold may not be biologically | | | significant and must be interpreted cautiously. | | + + + + + + + + | Performing | Address | City/State/Zipcode | Phone Number | | Organization | | | | + + + + + | [facility] | [address] | [place] [address] | | | DIAGNOSTIC | [address] | | | | LABORATORIES | | | | + + + + + CAPILLARY BLOOD GLUCOSE (NO CHG), POC (07/29/2016 11:35 AM PST) + +-------+ + + + | Component | Value | Ref Range | Performed | Pathologist | | | | | At | Signature | + +-------+ + + + | BLOOD | 90 | 60 - 99 mg/dL | [facility] | | | GLUCOSE, | | | [facility] | | | [...] + | [facility] | [address] | [place], [place] | | | [facility] | [address] | [address] | | | TESTS | | | | + + + + + CBC (HEMOGRAM) ONLY (07/29/2016 9:26 AM PST) + + + + + + | Component | Value | Ref Range | Performed | Pathologist | | | | | At | Signature | + + + + + + | WHITE CELL | 4.66 | 3.50 - 10.80 | [facility] | | | COUNT | | K/cu mm | LABORATORY | | | | | | SERVICES, | | | | | | CORE | | + + + + + + | RED CELL | 3.52 (L) | 4.50 - 6.00 | [facility] | | | COUNT | | M/cu mm | LABORATORY | | | | | | SERVICES, | | | | | | CORE | | + + + + + + | HEMOGLOBIN | 6.9 (L) | 13.5 - 17.5 | [facility] | | | | | g/dL | LABORATORY | | | | | | SERVICES, | | | | | | CORE | | + + + + + + | HEMATOCRIT | 23.5 (L) | 41.0 - 53.0 % | [facility] | | | | | | LABORATORY | | | | | | SERVICES, | | | | | | CORE | | + + + + + + | MCV | 66.8 (L) | 80.0 - 96.0 fL | [facility] | | | | | | LABORATORY | | | | | | SERVICES, | | | | | | CORE | | + + + + + + | MCHC | 29.4 | 33.0 - 35.5 | [facility] | | | | | g/dL | LABORATORY | | | | | | SERVICES, | | | | | | CORE | | + + + + + + | RDW SD | 41.0 | 35.1 - 46.3 fL | [facility] | | | | | | LABORATORY | | | | | | SERVICES, | | | | | | CORE | | + + + + + + | PLATELET | 340 | 150 - 400 K/cu | [facility] [...] + + | Blood - Blood | | (substance) | + + + + + | Narrative | Performed At | + + + | New adult WBC reference ranges effective June 04, 2016. | [facility] | | | LABORATORY | | | [place] | + + + + + + + + | Performing | Address | City/State/Zipcode | Phone Number | | Organization | | | | + + + + + | [facility] | [address] | [place] [address] | | | [place] | [address] | | | + + + + + PREALBUMIN (07/29/2016 5:14 AM PST) + +-------+ + + + | Component | Value | Ref Range | Performed | Pathologist | | | | | At | Signature | + +-------+ + + + | PREALBUMIN | 17.1 | 17.0 - 42.0 | [facility] | | | | | mg/dL | [facility] | | | | | | [place] | | + +-------+ + + + + + | Specimen | + + | Blood - Blood | | (substance) | + + + + + + + | Performing | Address | City/State/Zipcode | Phone Number | | Organization | | | | + + + + + | [facility] - | [address] | [place] [address] | | | [place] | | | | + + + + + MAGNESIUM, PLASMA (07/29/2016 4:04 AM PST) + +-------+ + + + | Component | Value | Ref Range | Performed | Pathologist | | | | | At | Signature | + +-------+ + + + | MAGNESIUM,P | 2.0 | 1.8 - 2.5 mg/dL | [facility] | | | LASMA | | | LABORATORY | | | | | | SERVICES, | | | | | | CORE | | + +-------+ + + + + + | Specimen | + + | Blood - Blood | | (substance) | + + + + + + + | Performing | Address | City/State/Zipcode | Phone Number | | Organization | | | | + + + + + | [facility] | [address] | [place] [address] | | | SERVICES, CAM | [address] | | | + + + + + RENAL FUNCTION SET (NA,K,CL,CO2,BUN,CREAT,GLUC,CA,PHOS,ALB ) (07/29/2016 4:04 AM PST) + + + + + + | Component | Value | Ref Range | Performed | Pathologist | | | | | At | Signature | + + + + + + | GLUCOSE, | 81 | 60 - 99 mg/dL | [facility] | | | PLASMA | | | LABORATORY | | | (LAB) | | | SERVICES, | | | | | | CORE | | + + + + + + | BUN, PLASMA | 16 | 6 - 20 mg/dL | [facility] | | | (LAB) | | | LABORATORY | | | | | | SERVICES, | | | | | | CORE | | + + + + + + | CREATININE | 0.62 (L) | 0.70 - 1.30 | [facility] | | | PLASMA | | mg/dL | LABORATORY | | | (LAB) | | | SERVICES, | | | | | | CORE | | + + + + + + | EGFR | >60 | >60 mL/min | [facility] | | | - | | | LABORATORY | | | [facility] | | | SERVICES, | | | [...] + + + + | POTASSIUM, | 4.2 | 3.4 - 5.0 | [facility] | [...] + + + + | CALCIUM, | 7.4 (L) | 8.6 - 10.2 | [facility] | | | PLASMA | | mg/dL | LABORATORY | | | (LAB) | | | SERVICES, | | | | | | CORE | | + + + + + + | CALCIUM(ALB | 8.3 (L) | 8.6 - 10.2 | [facility] | | | CORRECTED) | | mg/dL | LABORATORY | | | | | | SERVICES, | | | | | | CORE | | + + + + + + | ALBUMIN, | 2.9 (L) | 3.5 - 4.7 g/dL | [facility] | | | PLASMA | | | LABORATORY | | | (LAB) | | | SERVICES, | | | | | | CORE | | + + + + + + | PHOSPHORUS, | 3.2 | 2.4 - 4.7 mg/dL | [facility] [...] + + + | ANION GAP | 7 | mmol/L | [facility] | | | | | | LABORATORY | | | | | | SERVICES, | | | | | | CORE | | + + + + + + | ANION | 9 | 4 - 11 mmol/L | [facility] | | | GAP(ALB | | | LABORATORY | | | CORRECTED) | | | SERVICES, | | | | | | CORE | | + + + + + + + + | Specimen | + + | Blood - Blood | | (substance) | + + + + + | [...] + + | [facility] | [address] | [place] [address] | | | SERVICES, CORE | [address] | | | + + + + + APTT (ACT. PART. THROMBO TIME) (07/29/2016 4:04 AM PST) + +-------+ + + + | Component | Value | Ref Range | Performed | Pathologist | | | | | At | Signature | + +-------+ + + + | APTT | 28.9 | 26.0 - 36.0 | [facility] | | | | | seconds | LABORATORY | | | | | | SERVICES, | | | | | | CORE | | + +-------+ + + + + + | Specimen | + + | Blood - Blood | | (substance) | + + + + + | Narrative | Performed At | + + + | APTT Therapeutic Range: (75 - | [facility] | | 120) sec Heparin levels of 0.35 - 0.7 U/mL | LABORATORY | | | SERVICES, CORE | + + + + + + + + | Performing | Address | City/State/Zipcode | Phone Number | | Organization | | | | + + + + + | [facility] | [address] | [place] [address] | | | SERVICES, CORE | [address] | | | + + + + + INR (07/29/2016 4:04 AM PST) + +-------+ + + + | Component | Value | Ref Range | Performed | Pathologist | | | | | At | Signature | + +-------+ + + + | INR | 0.95 | 0.90 - 1.20 INR | [facility] | | | | | | LABORATORY | | | | | | SERVICES, | | | | | | CORE | | + +-------+ + + + + + | Specimen | + + | Blood - Blood | | (substance) | + + + + + | [...] | + + + + + | [facility] | [address] | [place] [address] | | | SERVICES, CORE | [address] | | | + + + + + CAPILLARY BLOOD GLUCOSE (NO CHG), POC (07/29/2016 12:17 AM PST) + +-------+ + + + | Component | Value | Ref Range | Performed | Pathologist | | | | | At | Signature | + +-------+ + + + | BLOOD | 98 | 60 - 99 mg/dL | [facility] | | | GLUCOSE, | | | [facility] | | | [...] + | [facility] | [address] | [place], [place] | | | [facility] | [address] | [address] | | | TESTS | | | | + + + + + EGD (07/29/2016 12:00 AM PST) + + + | Narrative | Performed At | + + + | | | + + + COLONOSCOPY (07/29/2016 12:00 AM PST) + + + | Narrative | Performed At | + + + | | | + + + SURGICAL PATHOLOGY (07/29/2016) + + + + + + | Component | Value | Ref Range | Performed | Pathologist | | | | | At | Signature | + + + + + + | SURGICAL | THIS IS AN AMENDED | | [facility] | | | PATHOLOGY | REPORT SOURCE OF | | DEPARTMENT | | | | SPECIMEN:A Esophagus at | | OF | | | | 35cm biopsySOURCE OF | | PATHOLOGY | | | | SPECIMEN:B Sigmoid colon | | | | | | polyp Final | | | | | | Pathologic | | | | | | Diagnosis:Amendment: A | | | | | | GMS histochemical stain | | | | | | is negative. The | | | | | | original | | | | | | diagnosisremains | | | | | | unchanged. A. | | | | | | Esophagus at 35cm | | | | | | biopsy: - | | | | | | Ulcerated squamous | | | | | | mucosa with | | | | | | inflammation, | | | | | | granulation tissue | | | | | | andreactive epithelial | | | | | | changes, see comment | | | | | | B. Sigmoid colon | | | | | | polyp, biopsy: - | | | | | | Submucosal leiomyoma | | | | | | - Negative for | | | | | | dysplasia and malignancy | | | | | | Comment: A | | | | | | pancytokeratin | | | | | | immunohistochemical | | | | | | stain performed on | | | | | | theesophageal biopsy | | | | | | highlights surface | | | | | | squamous epithelium with | | | | | | reactiveepithelial | | | | | | changes. No malignancy | | | | | | is identified. | | | | | | Case seen by:Nelly | | | | | | MD Sindi/Surgical | | | | | | Pathology Luciano Jensen | | | | | | MD Shivam PhD / | | | | | | Pathologist | | | | | | Amendment seen by:Pravin | | | | | | R MD Shivam PhD / | | | | | | Pathologist | | | | | | Clinical History:55 | | | | | | year-old male; please | | | | | | r/o esophageal cancer. | | | | | | Also has sigmoid | | | | | | colonpolyp. Gross | | | | | | Description:In two | | | | | | formalin containers | | | | | | labeled with patient | | | | | | name and . | | | | | | A: Esophagus at 35 | | | | | | cm biopsyReceived 0.5 x | | | | | | 0.5 x 0.1 -cm in | | | | | | aggregate are five soft, | | | | | | kuhn tissues. | | | | | | Theentire specimen is | | | | | | submitted. B: | | | | | | Sigmoid colon | | | | | | polypReceived is a 0.3 x | | | | | | 0.2 x 0.2 -cm soft, kuhn | | | | | | tissue. The entire | | | | | | specimen issubmitted. | | | | | | Cassette Index:A1, | | | | | | esophagusB1, sigmoid | | | | | | colon polyptpw | | | | | | (Analyte specific | | | | | | reagents are used in | | | | | | many laboratory tests | | | | | | necessary forstandard | | | | | | medical care. This | | | | | | test was developed and | | | | | | its | | | | | | performancecharacteristi | | | | | | cs determined by [facility] | | | | | | laboratories. It has | | | | | | not been clearedor | | | | | | approved by the [place] Food | | | | | | and Drug Administration | | | | | | (FDA). FDA does | | | | | | notrequire this test to | | | | | | go through premarket FDA | | | | | | review. This test is | | | | | | used forclinical | | | | | | purposes. It should | | | | | | not be regarded as | | | | | | investigational or | | | | | | forresearch. This | | | | | | laboratory is certified | | | | | | under the Clinical | | | | | | LaboratoryImprovement | | | | | | Amendments (CLIA) as | | | | | | qualified to perform | | | | | | high complexityclinical | | | | | | laboratory testing.) | | | | | | My [...] Diagnostician: | | | | | | Pravin Langley M.D. | | | | | | Ph.D.PathologistElectron | | | | | | janessay Signed 08/01/2016 | | | | | | 8:29AM | | | | + + + + + + + + | Specimen | + + | Biopsy - Biopsy | | (procedure) | + + + + + | Narrative | Performed At | + + + | | | + + + + + + + + | Performing | Address | City/State/Zipcode | Phone Number | | Organization | | | | + + + + + | [facility] | [address] | [place] [address] | | | PATHOLOGY | [address] | | | + + + + + CAPILLARY BLOOD GLUCOSE (NO CHG), POC (07/28/2016 11:54 AM PST) + +---------+ + + + | Component | Value | Ref Range | Performed | Pathologist | | | | | At | Signature | + +---------+ + + + | BLOOD | 117 (H) | 60 - 99 mg/dL | [facility] | | | GLUCOSE, | | | [facility] | | | [...] | [facility] | [address] | [place], [place] | | | [facility] | [address] | [address] | | | TESTS | | | | + + + + + CAPILLARY BLOOD GLUCOSE (NO CHG), POC (07/28/2016 5:46 AM PST) + +---------+ + + + | Component | Value | Ref Range | Performed | Pathologist | | | | | At | Signature | + +---------+ + + + | BLOOD | 114 (H) | 60 - 99 mg/dL | [facility] | | | GLUCOSE, | | | [facility] | | | [...] | [facility] | [address] | [place], [place] | | | [facility] | [address] | [address] | | | TESTS | | | | + + + + + CAPILLARY BLOOD GLUCOSE (NO CHG), POC (07/27/2016 11:46 PM PST) + +---------+ + + + | Component | Value | Ref Range | Performed | Pathologist | | | | | At | Signature | + +---------+ + + + | BLOOD | 100 (H) | 60 - 99 mg/dL | [facility] | | | GLUCOSE, | | | [facility] | | | [...] + | [facility] | [address] | [place], [place] | | | [facility] | [address] | [address] | | | TESTS | | | | + + + + + CAPILLARY BLOOD GLUCOSE (NO CHG), POC (07/27/2016 6:05 PM PST) + +---------+ + + + | Component | Value | Ref Range | Performed | Pathologist | | | | | At | Signature | + +---------+ + + + | BLOOD | 109 (H) | 60 - 99 mg/dL | [facility] | | | GLUCOSE, | | | [facility] | | | [...] + + + + | [facility] | [address] | [place], [place] | | | [facility] | [address] | [address] | | | TESTS | | | | + + + + + OCCULT BLOOD, FECES, SCREEN (07/27/2016 3:45 PM PST) + + + + + + | Component | Value | Ref Range | Performed | Pathologist | | | | | At | Signature | + + + + + + | OCCULT | Positive (A) | Negative | [facility] | | | BLOOD, | | | LABORATORY | | | FECES, | | | SERVICES, | | | SCREEN | | | CORE | | + + + + + + + + | Specimen | + + | Stool - Rectum | | structure (body | | structure) | + + + + + + + | Performing | Address | City/State/Zipcode | Phone Number | | Organization | | | | + + + + + | [facility] | [address] | [place] [address] | | | SERVICES, CORE | [address] | | | + + + + + BASIC METABOLIC SET (NA, K, CL, TCO2, BUN, CR, GLU, CA) (07/27/2016 3:14 PM PST) + + + + + + | Component | Value | Ref Range | Performed | Pathologist | | | | | At | Signature | + + + + + + | GLUCOSE, | 99 | 60 - 99 mg/dL | [facility] | | | PLASMA | | | LABORATORY | | | (LAB) | | | SERVICES, | | | | | | CORE | | + + + + + + | BUN, PLASMA | 15 | 6 - 20 mg/dL | [facility] | | | (LAB) | | | LABORATORY | | | | | | SERVICES, | | | | | | CORE | | + + + + + + | CREATININE | 0.60 (L) | 0.70 - 1.30 | [facility] | | | PLASMA | | mg/dL | LABORATORY | | | (LAB) | | | SERVICES, | | | | | | CORE | | + + + + + + | EGFR | >60 | >60 mL/min | [facility] | | | - | | | LABORATORY | | | [facility] | | | SERVICES, | | | | | | CORE | | + + + + + + | EGFR NON | >60 | >60 mL/min | [facility] | | | -EFRA | | | LABORATORY | | | [facility] | | | SERVICES, | | | | | | CORE | | + + + + + + | SODIUM, | 138 | 136 - 145 | [facility] | | | PLASMA | | mmol/L | LABORATORY | | | (LAB) | | | SERVICES, | | | | | | CORE | | + + + + + + | POTASSIUM, | 4.1 | 3.4 - 5.0 | [facility] | | | PLASMA | | mmol/L | LABORATORY | | | (LAB) | | | SERVICES, | | | | | | CORE | | + + + + + + | CHLORIDE, | 104 | 97 - 108 mmol/L | [facility] | | | PLASMA | | | LABORATORY | | | (LAB) | | | SERVICES, | | | | | | CORE | | + + + + + + | TOTAL CO2, | 24 | 21 - 32 mmol/L | [facility] | | | PLASMA | | | LABORATORY | | | (LAB) | | | SERVICES, | | | | | | CORE | | + + + + + + | CALCIUM, | 8.0 (L) | 8.6 - 10.2 | [facility] | | | PLASMA | | mg/dL | LABORATORY | | | (LAB) | | | SERVICES, | | | | | | CORE | | + + + + + + | ANION GAP | 10 | mmol/L | [facility] | | | [...] + + | Blood - Blood | | (substance) | + + + + + | Narrative | Performed At | + + + | GFR is estimated using the MDRD equation recommended by the | [facility] | | National Kidney Disease Education Program. [...] | + + + + + | [facility] | [address] | [place] [address] | | | SERVICES, CORE | [address] | | | + + + + + CAPILLARY BLOOD GLUCOSE (NO CHG), POC (07/27/2016 12:43 PM PST) + +---------+ + + + | Component | Value | Ref Range | Performed | Pathologist | | | | | At | Signature | + +---------+ + + + | BLOOD | 124 (H) | 60 - 99 mg/dL | [facility] - | | | GLUCOSE, | | | [facility] | | | [...] + | [facility] | [address] | [place], [place] | | | [facility] | [facility] | [phone] | | | TESTS | | | | + + + + + CAPILLARY BLOOD GLUCOSE (NO CHG), POC (07/27/2016 5:44 AM PST) + +---------+ + + + | Component | Value | Ref Range | Performed | Pathologist | | | | | At | Signature | + +---------+ + + + | BLOOD | 119 (H) | 60 - 99 mg/dL | [facility] | | | GLUCOSE, | | | [facility] | | | [...] | [facility] | [address] | [place], [place] | | | [facility] | [address] | [address] | | | TESTS | | | | + + + + + MAGNESIUM, PLASMA (07/27/2016 5:29 AM PST) + +-------+ + + + | Component | Value | Ref Range | Performed | Pathologist | | | | | At | Signature | + +-------+ + + + | MAGNESIUM,P | 2.3 | 1.8 - 2.5 mg/dL | [facility] | | | LASMA | | | LABORATORY | | | | | | SERVICES, | | | | | | CORE | | + +-------+ + + + + + | Specimen | + + | Blood - Blood | | (substance) | + + + + + + + | Performing | Address | City/State/Zipcode | Phone Number | | Organization | | | | + + + + + | [facility] | [address] | [place] [address] | | | SERVICES, CORE | [address] | | | + + + + + RENAL FUNCTION SET (NA,K,CL,CO2,BUN,CREAT,GLUC,CA,PHOS,ALB ) (07/27/2016 5:29 AM PST) + + + + + + | Component | Value | Ref Range | Performed | Pathologist | | | | | At | Signature | + + + + + + | GLUCOSE, | 94 | 60 - 99 mg/dL | [facility] | | | PLASMA | | | LABORATORY | | | (LAB) | | | SERVICES, | | | | | | CORE | | + + + + + + | BUN, PLASMA | 13 | 6 - 20 mg/dL | [facility] | | | (LAB) | | | LABORATORY | | | | | | SERVICES, | | | | | | CORE | | + + + + + + | CREATININE | 0.56 (L) | 0.70 - 1.30 | [facility] | | | PLASMA | | mg/dL | LABORATORY | | | (LAB) | | | SERVICES, | | | | | | CORE | | + + + + + + | EGFR | >60 | >60 mL/min | [facility] | | | - | | | LABORATORY | | | [facility] | | | SERVICES, | | | | | | CORE | | + + + + + + | EGFR NON | >60 | >60 mL/min | [facility] | | | -EFRA | | | LABORATORY | | | [facility] | | | SERVICES, | | | | | | CORE | | + + + + + + | SODIUM, | 138 | 136 - 145 | [facility] | | | PLASMA | | mmol/L | LABORATORY | | | (LAB) | | | SERVICES, | | | | | | CORE | | + + + + + + | POTASSIUM, | 4.1 | 3.4 - 5.0 | [facility] | [...] + + + | TOTAL CO2, | 24 | 21 - 32 mmol/L | [facility] | | | PLASMA | | | LABORATORY | | | (LAB) | | | SERVICES, | | | | | | CORE | | + + + + + + | CALCIUM, | 8.2 (L) | 8.6 - 10.2 | [facility] | | | PLASMA | | mg/dL | LABORATORY | | | (LAB) | | | SERVICES, | | | | | | CORE | | + + + + + + | CALCIUM(ALB | 9.1 | 8.6 - 10.2 | [facility] | | | CORRECTED) | | mg/dL | LABORATORY | | | | | | SERVICES, | | | | | | CORE | | + + + + + + | ALBUMIN, | 2.9 (L) | 3.5 - 4.7 g/dL | [facility] | | | PLASMA | | | LABORATORY | | | (LAB) | | | SERVICES, | | | | | | CORE | | + + + + + + | PHOSPHORUS, | 3.9 | 2.4 - 4.7 mg/dL | [facility] [...] + + + + + | ANION | 11 | 4 - 11 mmol/L | [facility] | | | GAP(ALB | | | LABORATORY | | | CORRECTED) | | | SERVICES, | | | | | | CORE | | + + + + + + + + | Specimen | + + | Blood - Blood | | (substance) | + + + + + | Narrative | Performed At | + + + | GFR is estimated using the MDRD equation recommended by the | [facility] | | National Kidney Disease Education Program. Estimated GFR | LABORATORY | | Interpretive Information: <60 mL/min/1.73 sq m | [place], [facility] | | Chronic Kidney Disease <15 mL/min/1.73 [...] | + + + + + | [facility] | [address] | [place] [address] | | | [place] | [address] | | | + + + + + CAPILLARY BLOOD GLUCOSE (NO CHG), POC (07/27/2016 12:19 AM PST) + +---------+ + + + | Component | Value | Ref Range | Performed | Pathologist | | | | | At | Signature | + +---------+ + + + | BLOOD | 107 (H) | 60 - 99 mg/dL | [facility] | | | GLUCOSE, | | | [facility] | | | [...] | [facility] | [address] | [place], [place] | | | [facility] | [address] | [address] | | | TESTS | | | | + + + + + CAPILLARY BLOOD GLUCOSE (NO CHG), POC (07/26/2016 6:42 PM PST) + +---------+ + + + | Component | Value | Ref Range | Performed | Pathologist | | | | | At | Signature | + +---------+ + + + | BLOOD | 110 (H) | 60 - 99 mg/dL | [facility] | | | GLUCOSE, | | | [facility] | | | [...] + | [facility] | [address] | [place], [place] | | | [facility] | [address] | [address] | | | TESTS | | | | + + + + + CAPILLARY BLOOD GLUCOSE (NO CHG), POC (07/26/2016 2:43 PM PST) + +---------+ + + + | Component | Value | Ref Range | Performed | Pathologist | | | | | At | Signature | + +---------+ + + + | BLOOD | 108 (H) | 60 - 99 mg/dL | [facility] - | | | GLUCOSE, | | | [facility] | | | [...] + + | [facility] | [address] | [place], [place] | | | [facility] | [address] | [phone] | | | TESTS | | | | + + + + + REPOSITION GASTRIC FEED TUBE W/ FLUORO (07/26/2016 11:33 AM PST) + + + + + + | Component | Value | Ref Range | Performed | Pathologist | | | | | At | Signature | + + + + + + | REPOSITION | PROCEDURE: Nasoenteric | | | | | GASTRIC | tube repositioning under | | | | | FEED TUBE | fluoroscopic guidance | | | | | W/FLUORO | HISTORY: Enteral | | | | | | nutrition needed. | | | | | | COMPARISON: 07/25/16 | | | | | | TECHNIQUE: The patient | | | | | | came to the radiology | | | | | | department with an | | | | | | [id number] | | | | | | cm tube. Lidocaine gel | | | | | | was placed into the | | | | | | nares. Underintermittent | | | | | | fluoroscopic guidance | | | | | | the tube was advanced to | | | | | | the ligament ofTreitz | | | | | | with final tip position | | | | | | confirmed with Omnipaque | | | | | | 300. Total | | | | | | fluoroscopytime 144 | | | | | | seconds. Radiation | | | | | | dose reduction technique | | | | | | was maximized, | | | | | | whereappropriate, using | | | | | | pulsed fluoroscopy and | | | | | | fluoro-store images. | | | | | | FINDINGS: Starting | | | | | | Dobbhoff tube tip | | | | | | position was in the | | | | | | stomach. Final tube tip | | | | | | positionwas ligament of | | | | | | Treitz. IMPRESSION: | | | | | | Successful Dobbhoff tube | | | | | | advancement to the | | | | | | ligament of Treitz. By | | | | | | my electronic signature | | | | | | listed below, I, the | | | | | | attending | | | | | | radiologist,performed | | | | | | the entire procedure as | | | | | | described in this note. | | | | | | Attending Radiologists: | | | | | | CAYETANO MONTANO MDAuthor: | | | | | | CAYETANO MONTANO MD I | | | | | | personally reviewed the | | | | | | images and, if | | | | | | necessary, edited the | | | | | | report. I agreewith the | | | | | | report as now presented. | | | | | | | | | | | | Final/Electronically | | | | | | signed / CAYETANO MONTANO | | | | | | 07/26/2016 12:29 PM | | | | + + + + + + + + | Specimen | + + | | + + + +---------+ + + | Performing | Address | City/State/Zipcode | Phone Number | | Organization | | | | + +---------+ + + | [facility] DEPARTMENT OF | | | | | RADIOLOGY | | | | + +---------+ + + CAPILLARY BLOOD GLUCOSE (NO CHG), POC (07/26/2016 6:06 AM PST) + +---------+ + + + | Component | Value | Ref Range | Performed | Pathologist | | | | | At | Signature | + +---------+ + + + | BLOOD | 106 (H) | 60 - 99 mg/dL | [facility] - | | | GLUCOSE, | | | [facility] | | | [...] + | [facility] | [address] | [place], [place] | | | [facility] | [address] | [phone] | | | TESTS | | | | + + + + + MAGNESIUM, PLASMA (07/26/2016 4:16 AM PST) + +-------+ + + + | Component | Value | Ref Range | Performed | Pathologist | | | | | At | Signature | + +-------+ + + + | MAGNESIUM,P | 2.4 | 1.8 - 2.5 mg/dL | [facility] | | | [facility] | | | [facility]OR[facility] | | | | | | [facility], | | | | | | CORE | | + +-------+ + + + + + | Specimen | + + | Blood - Blood | | (substance) | + + + + + + + | Performing | Address | City/State/Zipcode | Phone Number | | Organization | | | | + + + + + | [facility] | [address] | [place] [address] | | | [place] | [address] | | | + + + + + RENAL FUNCTION SET (NA,K,CL,CO2,BUN,CREAT,GLUC,CA,PHOS,ALB ) (07/26/2016 4:16 AM PST) + + + + + + | Component | Value | Ref Range | Performed | Pathologist | | | | | At | Signature | + + + + + + | GLUCOSE, | 90 | 60 - 99 mg/dL | [facility] | | | PLASMA | | | LABORATORY | | | (LAB) | | | SERVICES, | | | | | | CORE | | + + + + + + | BUN, PLASMA | 9 | 6 - 20 mg/dL | [facility] | | | (LAB) | | | LABORATORY | | | | | | SERVICES, | | | | | | CORE | | + + + + + + | CREATININE | 0.52 (L) | 0.70 - 1.30 | [facility] | | | PLASMA | | mg/dL | LABORATORY | | | (LAB) | | | SERVICES, | | | | | | CORE | | + + + + + + | EGFR | >60 | >60 mL/min | [facility] | | | - | | | LABORATORY | | | JORDANIAN | | | SERVICES, | | | | | | CORE | | + + + + + + | EGFR NON | >60 | >60 mL/min | [facility] | | | -EFRA | | | LABORATORY | | | RICAN | | | SERVICES, | | | | | | CORE | | + + + + + + | SODIUM, | 136 | 136 - 145 | [facility] | | | PLASMA | | mmol/L | LABORATORY | | | (LAB) | | | SERVICES, | | | | | | CORE | | + + + + + + | POTASSIUM, | 4.2 | 3.4 - 5.0 | [facility] | [...] + + + | TOTAL CO2, | 24 | 21 - 32 mmol/L | [facility] | | | PLASMA | | | LABORATORY | | | (LAB) | | | SERVICES, | | | | | | CORE | | + + + + + + | CALCIUM, | 7.5 (L) | 8.6 - 10.2 | [facility] | | | PLASMA | | mg/dL | LABORATORY | | | (LAB) | | | SERVICES, | | | | | | CORE | | + + + + + + | CALCIUM(ALB | 8.3 (L) | 8.6 - 10.2 | [facility] | | | CORRECTED) | | mg/dL | LABORATORY | | | | | | SERVICES, | | | | | | CORE | | + + + + + + | ALBUMIN, | 3.0 (L) | 3.5 - 4.7 g/dL | [facility] | | | PLASMA | | | LABORATORY | | | (LAB) | | | SERVICES, | | | | | | CORE | | + + + + + + | PHOSPHORUS, | 3.7 [...] + + + + + | ANION | 11 | 4 - 11 mmol/L | [facility] | | | GAP(ALB | | | LABORATORY | | | CORRECTED) | | | SERVICES, | | | | | | CORE | | + + + + + + + + | Specimen | + + | Blood - Blood | | (substance) | + + + + + | [...] | + + + + + | [facility] | [address] | [place] [address] | | | SERVICES, CORE | [address] | | | + + + + + CAPILLARY BLOOD GLUCOSE (NO CHG), POC (07/26/2016 12:21 AM PST) + +---------+ + + + | Component | Value | Ref Range | Performed | Pathologist | | | | | At | Signature | + +---------+ + + + | BLOOD | 102 (H) | 60 - 99 mg/dL | [facility] | | | GLUCOSE, | | | [facility] | | | [...] | [facility] | [address] | [place], [place] | | | [facility] | [address] | [address] | | | TESTS | | | | + + + + + CAPILLARY BLOOD GLUCOSE (NO CHG), POC (07/25/2016 6:39 PM PST) + +---------+ + + + | Component | Value | Ref Range | Performed | Pathologist | | | | | At | Signature | + +---------+ + + + | BLOOD | 108 (H) | 60 - 99 mg/dL | [facility] | | | GLUCOSE, | | | [facility] | | | [...] + + + + + | [facility] | [address] | [place], [place] | | | [facility] | [address] | [address] | | | TESTS | | | | + + + + + MAGNESIUM, PLASMA (07/25/2016 3:56 PM PST) + +-------+ + + + | Component | Value | Ref Range | Performed | Pathologist | | | | | At | Signature | + +-------+ + + + | MAGNESIUM,P | 2.5 | 1.8 - 2.5 mg/dL | [facility] | | | LASMA | | | LABORATORY | | | | | | SERVICES, | | | | | | CORE | | + +-------+ + + + + + | Specimen | + + | Blood - Blood | | (substance) | + + + + + + + | Performing | Address | City/State/Zipcode | Phone Number | | Organization | | | | + + + + + | [facility] | [address] | [place] [address] | | | SERVICES, CAM | [address] | | | + + + + + RENAL FUNCTION SET (NA,K,CL,CO2,BUN,CREAT,GLUC,CA,PHOS,ALB ) (07/25/2016 3:56 PM PST) + + + + + [...] + + + + | CREATININE | 0.56 (L) | 0.70 - 1.30 | [facility] | | | PLASMA | | mg/dL | LABORATORY | | | (LAB) | | | SERVICES, | | | | | | CORE | | + + + + + + | EGFR | >60 | >60 mL/min | [facility] | | | - | | | LABORATORY | | | JORDANIAN | | | SERVICES, | | | | | | CORE | | + + + + + + | EGFR NON | >60 | >60 mL/min | [facility] | | | -EFRA | | | LABORATORY | | | RICAN | | | SERVICES, | | | | | | CORE | | + + + + + + | SODIUM, | 138 | 136 - 145 | [facility] | | | PLASMA | | mmol/L | LABORATORY | | | (LAB) | | | SERVICES, | | | | | | CORE | | + + + + + + | POTASSIUM, | 4.5 | 3.4 - 5.0 | [facility] | | | PLASMA | | mmol/L | LABORATORY | | | (LAB) | | | SERVICES, | | | | | | CORE | | + + + + + + | CHLORIDE, | 107 | 97 - 108 mmol/L | [facility] | | | PLASMA | | | LABORATORY | | | (LAB) | | | SERVICES, | | | | | | CORE | | + + + + + + | TOTAL CO2, | 23 | 21 - 32 mmol/L | [facility] | | | PLASMA | | | LABORATORY | | | (LAB) | | | SERVICES, | | | | | | CORE | | + + + + + + | CALCIUM, | 8.1 (L) | 8.6 - 10.2 | [facility] | | | PLASMA | | mg/dL | LABORATORY | | | (LAB) | | | SERVICES, | | | | | | CORE | | + + + + + + | CALCIUM(ALB | 9.0 | 8.6 - 10.2 | [facility] | | | CORRECTED) | | mg/dL | LABORATORY | | | | | | SERVICES, | | | | | | CORE | | + + + + + + | ALBUMIN, | 2.9 (L) | 3.5 - 4.7 g/dL | [facility] | | | PLASMA | | | LABORATORY | | | (LAB) | | | SERVICES, | | | | | | CORE | | + + + + + + | PHOSPHORUS, | 3.4 | 2.4 - 4.7 mg/dL | [facility] [...] + + + + + | ANION | 10 | 4 - 11 mmol/L | [facility] | | | GAP(ALB | | | LABORATORY | | | CORRECTED) | | | SERVICES, | | | | | | CORE | | + + + + + + + + | Specimen | + + | Blood - Blood | | (substance) | + + + + + | [...] | + + + + + | [facility] | [address] | [place] [address] | | | SERVICES, CORE | [address] | | | + + + + + X-RAY INTRODUCTION NASO OR ASHLEY-GASTRIC TUBE, REQ PHYSICIAN SKILL (07/25/2016 1:04 PM PST) + + + + + + | Component | Value | Ref Range | Performed | Pathologist | | | | | At | Signature | + + + + + + | NASO OR | PROCEDURE: | | | | | ASHLEY-GI TUBE | INTRODUCTION OF NASO- | | | | | | OR ASHLEY-GI TUBE UNDER | | | | | | FLUOROSCOPY HISTORY: | | | | | | Needs [place] tube placement | | | | | | COMPARISON: None | | | | | | TECHNIQUE: Fluoroscopy | | | | | | and tube placement were | | | | | | performed by | | | | | | minerva Ventura | | | | | | radiologist. A overlock hemmer | | | | | | film demonstrated a 12 | | | | | | Azeri Dobbhoff | | | | | | feedingtube within the | | | | | | stomach. Isovue contrast | | | | | | material and gas were | | | | | | instilled intothe | | | | | | Doppler feeding tube to | | | | | | allow manipulation of | | | | | | the Dobbhoff feeding | | | | | | tube tothe level of the | | | | | | ligament of Treitz. | | | | | | Contrast injection | | | | | | demonstrates | | | | | | successfulplacement | | | | | | within the distal | | | | | | duodenum at the duodenal | | | | | | jejunal junction. The | | | | | | tubewas secured to the | | | | | | patient's nares with | | | | | | tape. Total | | | | | | fluoroscopy time was 344 | | | | | | seconds; however, due | | | | | | to the use of | | | | | | pulsedfluoroscopy | | | | | | technique, patient | | | | | | exposure time was | | | | | | considerably less. | | | | | | FINDINGS:Feeding tube | | | | | | tip at duodenal-jejunal | | | | | | junction. IMPRESSION: | | | | | | Successful placement of | | | | | | a 12 Fr [id number] | | | | | | Doppler feeding tube | | | | | | with tipat the | | | | | | duodenal-jejunal | | | | | | junction. The attending | | | | | | radiologistDr. | | | | | | MD Audrey, was | | | | | | present for and | | | | | | participatedin the | | | | | | entire procedure. END | | | | | | IMPRESSION Attending | | | | | | Radiologists: STEF | | | | | | VANI VENTURAuthor: | | | | | | STEF VENTURA MD | | | | | | I personally reviewed | | | | | | the images and, if | | | | | | necessary, edited the | | | | | | report. I agreewith the | | | | | | report as now presented. | | | | | | | | | | | | Final/Electronically | | | | | | signed / STEF | | | | | | AUDREY 07/25/2016 | | | | | | 13:30 PM | | | | + + + + + + + + | Specimen | + + | | + + + +---------+ + + | Performing | Address | City/State/Zipcode | Phone Number | | Organization | | | | + +---------+ + + | [facility] | | | | | RADIOLOGY | | | | + +---------+ + + CAPILLARY BLOOD GLUCOSE (NO CHG), POC (07/25/2016 12:04 PM PST) + +---------+ + + + | Component | Value | Ref Range | Performed | Pathologist | | | | | At | Signature | + +---------+ + + + | BLOOD | 126 (H) | 60 - 99 mg/dL | [facility] | | | GLUCOSE, | | | [facility] | | | [...] + + + + | [facility] | [address] | [place], [place] | | | [facility] | [address] | [address] | | | TESTS | | | | + + + + + PHOSPHORUS, PLASMA (07/25/2016 11:34 AM PST) + +-------+ + + + [...] + + | Blood - Blood | | (substance) | + + + + + + + | Performing | Address | City/State/Zipcode | Phone Number | | Organization | | | | + + + + + | [facility] [employer] | [address] | [place] [address] | | | SERVICES, CORE | [address] | | | + + + + + BASIC METABOLIC SET (NA, K, CL, TCO2, BUN, CR, GLU, CA) (07/25/2016 11:34 AM PST) + + + + + + | Component | Value | Ref Range | Performed | Pathologist | | | | | At | Signature | + + + + + + | GLUCOSE, | 100 [...] + + + + | CREATININE | 0.55 (L) | 0.70 - 1.30 | [facility] | | | PLASMA | | mg/dL | LABORATORY | | | (LAB) | | | SERVICES, | | | | | | CORE | | + + + + + + | EGFR | >60 | >60 mL/min | [facility] | | | - | | | LABORATORY | | | J[facility]ANIAN | | | SERVICES, | | | | | | CORE | | + + + + + + | EGFR NON | >60 | >60 mL/min | [facility] | | | -EFRA | | | LABORATORY | | | RICAN | | | SERVICES, | | | | | | CORE | | + + + + + + | SODIUM, | 138 | 136 - 145 | [facility] | | | PLASMA | | mmol/L | LABORATORY | | | (LAB) | | | SERVICES, | | | | | | CORE | | + + + + + + | POTASSIUM, | 6.7 (HH) | 3.4 - 5.0 | [facility] | | | PLASMA | | mmol/L | LABORATORY | | | (LAB) | | | SERVICES, | | | | | | CORE | | + + + + + + | CHLORIDE, | 108 | 97 - 108 mmol/L | [facility] | | | PLASMA | | | LABORATORY | | | (LAB) | | | SERVICES, | | | | | | CORE | | + + + + + + | TOTAL CO2, | 20 (L) | 21 - 32 mmol/L | [facility] | | | PLASMA | | | LABORATORY | | | (LAB) | | | SERVICES, | | | | | | CORE | | + + + + + + | CALCIUM, | 8.6 | 8.6 - 10.2 | [facility] | | | PLASMA | | mg/dL | LABORATORY | | | (LAB) | | | SERVICES, | | | | | | CORE | | + + + + + + | ANION GAP | 10 | mmol/L | [facility] | | | | | | LABORATORY | | | | | | SERVICES, | | | | | | CORE | | + + + + + + | POTASSIUM | Sl Hemo | | [facility] | | | CMNT | | | LABORATORY | | | | | | SERVICES, | | | | | | CORE | | + + + + + + + + | Specimen | + + | Blood - Blood | | (substance) | + + + + + | Narrative | Performed At | + + + | Sample hemolyzed. Results for K, Total Bili, Direct Bili, AST, | [facility] | | LDH, or HDL may be inaccurate. Refer to comment under test result. | LABORATORY | | GFR is estimated using the MDRD equation recommended by the National | SERVICES, CORE | | Kidney Disease Education Program. Estimated GFR Interpretive | | | Information: <60 mL/min/1.73 sq m Chronic Kidney | | | Disease <15 mL/min/1.73 sq m Kidney Failure | | | Estimated GFR greater that 60 mL/min/1.73 sq m is of limited clinical | | | value. The MDRD equation is not valid in the following situations: | | | - Patients under 18 years of age - Severe malnutrition or obesity | | | - Vegetarian diet - Rapidly changing kidney function | | + + + + + + + + | Performing | Address | City/State/Zipcode | Phone Number | | Organization | | | | + + + + + | [facility] | [address] | [place] [address] | | | SERVICES, CORE | [address] | | | + + + + + VASC LAB PORTABLE VENOUS DUPLEX LOWER EXTREMITY BILATERAL COMPLETE (07/25/2016 8:44 AM PST ) + + + + + + | Component | Value | Ref Range | Performed | Pathologist | | | | | At | Signature | + + + + + + | VASC LAB | Bilateral: The duplex | | | | | PORTABLE | scanner was used to | | | | | VENOUS | examine the deep and | | | | | DUPLEX | superficialveins of the | | | | | LOWER | right and left lower | | | | | EXTREMITY | extremities. The | | | | | BILATERAL | veins are | | | | | COMPLETE | patentbilaterally with | | | | | | normal flow and | | | | | | responses to | | | | | | augmentation and | | | | | | compressionmaneuvers and | | | | | | no thrombus is noted. | | | | | | Conclusions: A normal | | | | | | venous examination of | | | | | | the bilateral lower | | | | | | extremities. Novenous | | | | | | thrombosis was detected. | | | | | | Attending | | | | | | Radiologists: MILTON | | | | | | VANI ARIZAuthor: | | | | | | MILTON ARIZA MD I | | | | | | have personally viewed | | | | | | this procedure/exam, | | | | | | reviewed this report, | | | | | | and madechanges to it | | | | | | where appropriate. | | | | | | Final/Electronically | | | | | | signed / MILTON | | | | | | ANNITA 07/25/2016 9:55 | | | | | | AM Preliminary / | | | | | | MILTON ARIZA | | | | | | 07/25/2016 8:44 AM | | | | + + + + + + + + | Specimen | + + | | + + + +---------+ + + | Performing | Address | City/State/Zipcode | Phone Number | | Organization | | | | + +---------+ + + | [facility]MENT [facility] | | | | | RADIOLOGY | | | | + +---------+ + + CAPILLARY BLOOD GLUCOSE (NO CHG), POC (07/25/2016 5:27 AM PST) + +---------+ + + + | Component | Value | Ref Range | Performed | Pathologist | | | | | At | Signature | + +---------+ + + + | BLOOD | 121 (H) | 60 - 99 mg/dL | [facility] - | | | GLUCOSE, | | | [facility] | | | [...] + | [facility] | [address] | [place], [place] | | | [facility] | [address] | [address] | | | TESTS | | | | + + + + + CAPILLARY BLOOD GLUCOSE (NO CHG), POC (07/25/2016 12:05 AM PST) + +---------+ + + + | Component | Value | Ref Range | Performed | Pathologist | | | | | At | Signature | + +---------+ + + + | BLOOD | 125 (H) | 60 - 99 mg/dL | [facility] | | | GLUCOSE, | | | [facility] | | | [...] | [facility] | [address] | [place], [place] | | | [facility] | [address] | [address] | | | TESTS | | | | + + + + + PHOSPHORUS, PLASMA (07/24/2016 11:53 PM PST) + +-------+ + + + [...] + + | Blood - Blood | | (substance) | + + + + + + + | Performing | Address | City/State/Zipcode | Phone Number | | Organization | | | | + + + + + | [facility] | [address] | [place] [address] | | | SERVICES, CORE | [address] | | | + + + + + BASIC METABOLIC SET (NA, K, CL, TCO2, BUN, CR, GLU, CA) (07/24/2016 11:53 PM PST) + + + + + + | Component | Value | Ref Range | Performed | Pathologist | | | | | At | Signature | + + + + + + | GLUCOSE, | 119 (H) | 60 - 99 mg/dL | [facility] | | | PLASMA | | | LABORATORY | | | (LAB) | | | SERVICES, | | | | | | CORE | | + + + + + + | BUN, PLASMA | 4 (L) | 6 - 20 mg/dL | [facility] | | | (LAB) | | | LABORATORY | | | | | | SERVICES, | | | | | | CORE | | + + + + + + | CREATININE | 0.56 (L) | 0.70 - 1.30 | [facility] | | | PLASMA | | mg/dL | LABORATORY | | | (LAB) | | | SERVICES, | | | | | | CORE | | + + + + + + | EGFR | >60 | >60 mL/min | [facility] | | | - | | | LABORATORY | | | JORDANIAN | | | SERVICES, | | | | | | CORE | | + + + + + + | EGFR NON | >60 | >60 mL/min | [facility] | | | -EFRA | | | LABORATORY | | | RICAN | | | SERVICES, | | | | | | CORE | | + + + + + + | SODIUM, | 140 | 136 - 145 | [facility] | | | PLASMA | | mmol/L | LABORATORY | | | (LAB) | | | SERVICES, | | | | | | CORE | | + + + + + + | POTASSIUM, | 4.2 | 3.4 - 5.0 | [facility] | | | PLASMA | | mmol/L | LABORATORY | | | (LAB) | | | SERVICES, | | | | | | CORE | | + + + + + + | CHLORIDE, | 106 [...] + + + + | CALCIUM, | 7.6 (L) | 8.6 - 10.2 | [facility] | | | PLASMA | | mg/dL | LABORATORY | | | (LAB) | | | SERVICES, | | | | | | CORE | | + + + + + + | ANION GAP | 7 | mmol/L | [facility] | | | [...] + + | Blood - Blood | | (substance) | + + + + + | Narrative | Performed At | + + + | GFR is estimated using the MDRD equation recommended by the | [facility] | | National Kidney Disease Education Program. [...] | + + + + + | [facility] | [address] | [place] [address] | | | SERVICES, CAM | [address] | | | + + + + + CT MULTIPHASE PANCREAS AND PELVIS W IV CONTRAST (07/24/2016 8:40 PM PST) + + + + + + | Component | Value | Ref Range | Performed | Pathologist | | | | | At | Signature | + + + + + + | CTA DUAL | EXAM: Pancreas protocol | | | | | PHASE | CT of the abdomen with | | | | | PANCREAS W | and without contrast. | | | | | PELVIS | CT of thepelvis with | | | | | | contrast. HISTORY: | | | | | | Weight loss, concern for | | | | | | SMA syndrome. Evaluate | | | | | | for malignancy. | | | | | | COMPARISON: Outside CT | | | | | | of the abdomen and | | | | | | pelvis from 07/21/2016. | | | | | | TECHNIQUE: Unenhanced, | | | | | | arterial, and portal | | | | | | venous abdominal CT with | | | | | | 100 mLOmnipaque | | | | | | non-ionic iodinated | | | | | | intravenous contrast. | | | | | | CT of the pelvis in | | | | | | theportal phase. Coronal | | | | | | and sagittal reformats | | | | | | were reviewed. | | | | | | FINDINGS:LOWER THORAX: | | | | | | Unremarkable. LIVER: | | | | | | Unremarkable.BILIARY: | | | | | | Unremarkable.SPLEEN: | | | | | | Unremarkable. | | | | | | PANCREAS:ADRENALS: Left | | | | | | adrenal gland is not | | | | | | visualized. The right | | | | | | adrenal gland | | | | | | isunremarkable.KIDNEYS/U | | | | | | RETERS: | | | | | | Unremarkable.PELVIC | | | | | | ORGANS: Unremarkable. GI | | | | | | TRACT: Severely | | | | | | distended, fluid-filled | | | | | | stomach. Dobbhoff tube | | | | | | tip is withinthe gastric | | | | | | body. The 1st and 2nd | | | | | | portions of the duodenum | | | | | | are also dilated,and | | | | | | there is a small | | | | | | duodenal diverticulum | | | | | | arising at the junction | | | | | | of the 2ndand 3rd | | | | | | portions. There is | | | | | | narrowing of the 3rd | | | | | | portion of the duodenum | | | | | | as itcourses posterior | | | | | | to the superior | | | | | | mesenteric artery, and | | | | | | there is an | | | | | | abnormaldecreased | | | | | | Aorto-SMA angle of | | | | | | approximately 14 degrees | | | | | | (sagittal image | | | | | | 93).Distally, the bowel | | | | | | loops are collapsed. | | | | | | Oral contrast from prior | | | | | | fluoroscopystudy is in | | | | | | the colon. PERITONEUM: | | | | | | Unremarkable.LYMPH | | | | | | NODES: | | | | | | Unremarkable.VESSELS: | | | | | | Unremarkable. BONES AND | | | | | | SOFT TISSUES: Cachexia. | | | | | | No suspicious osseous | | | | | | lesions. IMPRESSION: 1. | | | | | | No malignancy | | | | | | identified. 2. SMA | | | | | | syndrome may be | | | | | | considered given the | | | | | | patient's weight loss, | | | | | | narrowAorto-SMA angle, | | | | | | and the dilated, | | | | | | fluid-filled stomach and | | | | | | proximal duodenum. | | | | | | These results were | | | | | | discussed with Dr. Espinoza | | | | | | at 9:17 PM on | | | | | | 07/24/2016 by | | | | | | Eloy, radiology | | | | | | resident. Attending | | | | | | Radiologists: GUSTABO | | | | | | DAWSON MDAuthor: KAYLA | | | | | | DO WANDER I personally | | | | | | reviewed the images and, | | | | | | if necessary, edited | | | | | | the report. I agreewith | | | | | | the report as now | | | | | | presented. | | | | | | Final/Electronically | | | | | | signed / GUSTABO OSMAN | | | | | | 07/25/2016 14:48 PM | | | | + + + + + + + + | Specimen | + + | | + + + +---------+ + + | Performing | Address | City/State/Zipcode | Phone Number | | Organization | | | | + +---------+ + + | [facility] DEPARTMENT OF | | | | | RADIOLOGY | | | | + +---------+ + + CAPILLARY BLOOD GLUCOSE (NO CHG), POC (07/24/2016 5:49 PM PST) + +---------+ + + + | Component | Value | Ref Range | Performed | Pathologist | | | | | At | Signature | + +---------+ + + + | BLOOD | 146 (H) | 60 - 99 mg/dL | [facility] - | | | GLUCOSE, | | | [facility] | | | [...] + | [facility] | [address] | [place], [place] | | | [facility] | [address] | [address] | | | TESTS | | | | + + + + + PHOSPHORUS, PLASMA (07/24/2016 4:30 PM PST) + +-------+ + + + | Component | Value | Ref Range | Performed | Pathologist | | | | | At | Signature | + +-------+ + + + | PHOSPHORUS, | 3.5 | 2.4 - 4.7 mg/dL | [facility] | | | PLASMA | | | LABORATORY | | | (LAB) | | | SERVICES, | | | | | | CORE | | + +-------+ + + + + + | Specimen | + + | Blood - Blood | | (substance) | + + + + + + + | Performing | Address | City/State/Zipcode | Phone Number | | Organization | | | | + + + + + | [facility] | [address] | [place] [address] | | | SERVICES, CORE | [address] | | | + + + + + BASIC METABOLIC SET (NA, K, CL, TCO2, BUN, CR, GLU, CA) (07/24/2016 4:30 PM PST) + + + + + + | Component | Value | Ref Range | Performed | Pathologist | | | | | At | Signature | + + + + + + | GLUCOSE, | 129 (H) | 60 - 99 mg/dL | [...] + + + + | CREATININE | 0.55 (L) | 0.70 - 1.30 | [facility] | | | PLASMA | | mg/dL | LABORATORY | | | (LAB) | | | SERVICES, | | | | | | CORE | | + + + + + + | EGFR | >60 | >60 mL/min | [facility] | | | - | | | LABORATORY | | | JORDANIAN | | | SERVICES, | | | | | | CORE | | + + + + + + | EGFR NON | >60 | >60 mL/min | [facility] | | | -EFRA | | | LABORATORY | | | RICAN | | | SERVICES, | | | | | | CORE | | + + + + + + | SODIUM, | 142 | 136 - 145 | [facility] | | | PLASMA | | mmol/L | LABORATORY | | | (LAB) | | | SERVICES, | | | | | | CORE | | + + + + + + | POTASSIUM, | 3.5 | 3.4 - 5.0 | [facility] | | | PLASMA | | mmol/L | LABORATORY | | | (LAB) | | | SERVICES, | | | | | | CORE | | + + + + + + | CHLORIDE, | 104 | 97 - 108 mmol/L | [facility] | | | PLASMA | | | LABORATORY | | | (LAB) | | | SERVICES, | | | | | | CORE | | + + + + + + | TOTAL CO2, | 32 | 21 - 32 mmol/L | [facility] | | | PLASMA | | | LABORATORY | | | (LAB) | | | SERVICES, | | | | | | CORE | | + + + + + + | CALCIUM, | 8.0 (L) | 8.6 - 10.2 | [facility] [...] + + | Blood - Blood | | (substance) | + + + + + | [...] | + + + + + | [facility] [employer] | [address] | [place] [address] | | | SERVICES, CORE | [address] | | | + + + + + X-RAY ABD LTD FEEDING TUBE EVAL (07/24/2016 3:05 PM PST) + + + + + + | Component | Value | Ref Range | Performed | Pathologist | | | | | At | Signature | + + + + + + | ABD LTD | INDICATION:Dobbhoff | | | | | FEEDING | placement | | | | | TUBE EVAL | TECHNIQUE:Single view of | | | | | | the upper-outer is | | | | | | compared upper GI | | | | | | yesterday. | | | | | | FINDINGS/IMPRESSION:Naso | | | | | | gastric tube removed. | | | | | | Dobbhoff tube is in the | | | | | | body of the stomach. | | | | | | Attending Radiologists: | | | | | | CARON GARCIA MDAuthor: | | | | | | CARON GARCIA MD I | | | | | | personally reviewed the | | | | | | images and, if | | | | | | necessary, edited the | | | | | | report. I agreewith the | | | | | | report as now presented. | | | | | | | | | | | | Final/Electronically | | | | | | signed / CARON GARCIA | | | | | | 07/24/2016 15:24 PM | | | | + + + + + + + + | Specimen | + + | | + + + +---------+ + + | Performing | Address | City/State/Zipcode | Phone Number | | Organization | | | | + +---------+ + + | [facility] | | | | | RADIOLOGY | | | | + +---------+ + + CAPILLARY BLOOD GLUCOSE (NO CHG), POC (07/24/2016 12:00 PM PST) + +---------+ + + + | Component | Value | Ref Range | Performed | Pathologist | | | | | At | Signature | + +---------+ + + + | BLOOD | 226 (H) | 60 - 99 mg/dL | [facility] - | | | GLUCOSE, | | | [place] | | | [...] + | [facility] | [address] | [place], [place] | | | [place] [address] [place] | [address] | [address] | | | TESTS | | | | + + + + + MAGNESIUM, PLASMA (07/24/2016 6:43 AM PST) + +-------+ + + + | Component | Value | Ref Range | Performed | Pathologist | | | | | At | Signature | + +-------+ + + + | MAGNESIUM,P | 2.4 | 1.8 - 2.5 mg/dL | [facility] | | | LASMA | | | LABORATORY | | | | | | SERVICES, | | | | | | CORE | | + +-------+ + + + + + | Specimen | + + | Blood - Blood | | (substance) | + + + + + + + | Performing | Address | City/State/Zipcode | Phone Number | | Organization | | | | + + + + + | [facility] | [address] | [place] [address] | | | SERVICES, CORE | [address] | | | + + + + + PHOSPHORUS, PLASMA (07/24/2016 6:43 AM PST) + +-------+ + + + | Component | Value | Ref Range | Performed | Pathologist | | | | | At | Signature | + +-------+ + + + | PHOSPHORUS, | 4.1 | 2.4 - 4.7 mg/dL | [facility] | | | PLASMA | | | LABORATORY | | | (LAB) | | | SERVICES, | | | | | | CORE | | + +-------+ + + + + + | Specimen | + + | Blood - Blood | | (substance) | + + + + + + + | Performing | Address | City/State/Zipcode | Phone Number | | Organization | | | | + + + + + | [facility] | [address] | [place] [address] | | | SERVICES, CORE | [address] | | | + + + + + BASIC METABOLIC SET (NA, K, CL, TCO2, BUN, CR, GLU, CA) (07/24/2016 6:43 AM PST) + + + + + + | Component | Value | Ref Range | Performed | Pathologist | | | | | At | Signature | + + + + + + | GLUCOSE, | 98 | 60 - 99 mg/dL | [facility] [...] + + + + | CREATININE | 0.65 (L) | 0.70 - 1.30 | [facility] | | | PLASMA | | mg/dL | LABORATORY | | | (LAB) | | | SERVICES, | | | | | | CORE | | + + + + + + | EGFR | >60 | >60 mL/min | [facility] | | | - | | | LABORATORY | | | JORDANIAN | | | SERVICES, | | | | | | CORE | | + + + + + + | EGFR NON | >60 | >60 mL/min | [facility] | | | -EFRA | | | LABORATORY | | | RICAN | | | SERVICES, | | | | | | CORE | | + + + + + + | SODIUM, | 143 [...] + + + + | CALCIUM, | 8.0 (L) | 8.6 - 10.2 | [facility] | | | PLASMA | | mg/dL | LABORATORY | | | (LAB) | | | SERVICES, | | | | | | CORE | | + + + + + + | ANION GAP | 11 | mmol/L | [facility] | | | [...] + + | Blood - Blood | | (substance) | + + + + + | Narrative | Performed At | + + + | GFR is estimated using the MDRD equation recommended by the | [facility] | | National Kidney Disease Education Program. [...] | + + + + + | [facility] | [address] | [place] [address] | | | [address] [place] | [address] | | | + + + + + CAPILLARY BLOOD GLUCOSE (NO CHG), POC (07/24/2016 6:26 AM PST) + +---------+ + + + | Component | Value | Ref Range | Performed | Pathologist | | | | | At | Signature | + +---------+ + + + | BLOOD | 108 (H) | 60 - 99 mg/dL | [facility] - | | | GLUCOSE, | | | [facility] | | | [...] + + + + + | [facility] | [address] | [place], [place] | | | [facility] | [address] | [address] | | | TESTS | | | | + + + + + CANCER AG GI (), SERUM (07/24/2016 3:25 AM PST) + + + + + + | Component | Value | Ref Range | Performed | Pathologist | | | | | At | Signature | + + + + + + | CANCER AG | 103.0 (H) | <=37.0 U/mL | [facility] | | | GI () | | | LABORATORY | | | [facility] | | | SERVICES, | | | | | | CORE | | + + + + + + + + | Specimen | + + | Blood - Blood | | (substance) | + + + + + + + | Performing | Address | City/State/Zipcode | Phone Number | | Organization | | | | + + + + + | [facility] | [address] | [place] [address] | | | SERVICES, CORE | [address] | | | + + + + + CARCINOEMBRYONIC AG, SERUM (07/24/2016 3:25 AM PST) + +-------+ + + + | Component | Value | Ref Range | Performed | Pathologist | | | | | At | Signature | + +-------+ + + + | CEA-CARCINO | 1.1 | <=2.5 ng/mL | [facility] | | | EMBRYONIC | | | LABORATORY | | | AG, SERUM | | | SERVICES, | | | | | | CORE | | + +-------+ + + + + + | Specimen | + + | Blood - Blood | | (substance) | + + + + + + + | Performing | Address | City/State/Zipcode | Phone Number | | Organization | | | | + + + + + | [facility] | [address] | [place] [address] | | | [place] | [address] | | | + + + + + CAPILLARY BLOOD GLUCOSE (NO CHG), POC (07/24/2016 12:24 AM PST) + +-------+ + + + | Component | Value | Ref Range | Performed | Pathologist | | | | | At | Signature | + +-------+ + + + | BLOOD | 98 | 60 - 99 mg/dL | [facility] - | | | GLUCOSE, | | | [place] | | | [...] + + + + + | [facility] | [address] | [place], [place] | | | [facility] | [address] | [address] | | | TESTS | | | | + + + + + PHOSPHORUS, PLASMA (07/24/2016 12:18 AM PST) + +-------+ + + + | Component | Value | Ref Range | Performed | Pathologist | | | | | At | Signature | + +-------+ + + + | PHOSPHORUS, | 2.4 | 2.4 - 4.7 mg/dL | [facility] | | | PLASMA | | | LABORATORY | | | (LAB) | | | SERVICES, | | | | | | CORE | | + +-------+ + + + + + | Specimen | + + | Blood - Blood | | (substance) | + + + + + + + | Performing | Address | City/State/Zipcode | Phone Number | | Organization | | | | + + + + + | [facility] | [address] | [place] [address] | | | SERVICES, CAM | [address] | | | + + + + + BASIC METABOLIC SET (NA, K, CL, TCO2, BUN, CR, GLU, CA) (07/24/2016 12:18 AM PST) + + + + + + | Component | Value | Ref Range | Performed | Pathologist | | | | | At | Signature | + + + + + + | GLUCOSE, | 88 | 60 - 99 mg/dL | [facility] | | | PLASMA | | | LABORATORY | | | (LAB) | | | SERVICES, | | | | | | CORE | | + + + + + + | BUN, PLASMA | 9 | 6 - 20 mg/dL | [facility] | | | (LAB) | | | LABORATORY | | | | | | SERVICES, | | | | | | CORE | | + + + + + + | CREATININE | 0.62 (L) | 0.70 - 1.30 | [facility] | | | PLASMA | | mg/dL | LABORATORY | | | (LAB) | | | SERVICES, | | | | | | CORE | | + + + + + + | EGFR | >60 | >60 mL/min | [facility] | | | - | | | LABORATORY | | | JORDANIAN | | | SERVICES, | | | | | | CORE | | + + + + + + | EGFR NON | >60 | >60 mL/min | [facility] | | | -EFRA | | | LABORATORY | | | RICAN | | | SERVICES, | | | | | | CORE | | + + + + + + | SODIUM, | 140 | 136 - 145 | [facility] | | | PLASMA | | mmol/L | LABORATORY | | | (LAB) | | | SERVICES, | | | | | | CORE | | + + + + + + | POTASSIUM, | 3.4 | 3.4 - 5.0 | [facility] | [...] + + + | TOTAL CO2, | 29 | 21 - 32 mmol/L | [facility] | | | PLASMA | | | LABORATORY | | | (LAB) | | | SERVICES, | | | | | | CORE | | + + + + + + | CALCIUM, | 7.8 (L) | 8.6 - 10.2 | [facility] [...] + + | Blood - Blood | | (substance) | + + + + + | [...] | + + + + + | [facility] | [address] | [place] [address] | | | SERVICES, CORE | [address] | | | + + + + + CAPILLARY BLOOD GLUCOSE (NO CHG)HARDEEP (07/23/2016 8:23 PM PST) + +---------+ + + + | Component | Value | Ref Range | Performed | Pathologist | | | | | At | Signature | + +---------+ + + + | BLOOD | 129 (H) | 60 - 99 mg/dL | [facility] - | | | GLUCOSE, | | | [facility] | | | [...] | [facility] | [address] | [place], [place] | | | [facility] | [address] | [phone] | | | TESTS | | | | + + + + + X-RAY UGI W KUB (07/23/2016 4:01 PM PST) + + + + + + | Component | Value | Ref Range | Performed | Pathologist | | | | | At | Signature | + + + + + + | UGI W KUB | EXAM: Upper GI | | | | | | HISTORY: Dysphasia and | | | | | | weight loss. Concern | | | | | | for SMA syndrome | | | | | | COMPARISON: 07/21/2016 | | | | | | outside CT abdomen and | | | | | | pelvis TECHNIQUE: Upper | | | | | | GI,with thin barium, and | | | | | | KUB.Fluoroscopy | | | | | | time:108 seconds | | | | | | Actual time was less | | | | | | due to use of | | | | | | pulsedfluoroscopy. | | | | | | FINDINGS: Newspaper Editor KUB: The | | | | | | nasogastric tube is | | | | | | unchanged in position | | | | | | terminating in thedistal | | | | | | stomach/proximal | | | | | | duodenum. There is a | | | | | | nonobstructive bowel gas | | | | | | pattern. There is no | | | | | | evident pneumatosis, | | | | | | portal venous gas or | | | | | | free air.Redemonstration | | | | | | of healing right lower | | | | | | rib fractures. The | | | | | | lung bases areclear. | | | | | | Esophagus: Mild | | | | | | laryngeal penetration is | | | | | | seen with thin barium | | | | | | liquid. Anasogastric | | | | | | tube is in place, | | | | | | limiting evaluation of | | | | | | the esophagus. There | | | | | | isno gross mass or | | | | | | stricture.Esophageal | | | | | | motility: No gross | | | | | | dysmotility.Gastroesopha | | | | | | geal reflux: Expected | | | | | | given nasogastric tube. | | | | | | Stomach and duodenum: | | | | | | There was somewhat | | | | | | delayed gastric emptying | | | | | | of contrast.An | | | | | | approximately 3.9 x 2.6 | | | | | | cm duodenal diverticulum | | | | | | is seen on the | | | | | | superioraspect of the | | | | | | proximal D3 segment. | | | | | | Initially, Small | | | | | | amounts of contrast | | | | | | movedfrom the duodenum | | | | | | across the midline into | | | | | | the proximal jejunum | | | | | | with the patientin the | | | | | | supine position. After | | | | | | the patient ingested | | | | | | more thin barium, and | | | | | | waspositioned in the | | | | | | right lateral decubitus | | | | | | position to aid in | | | | | | gastric | | | | | | emptying,additional | | | | | | transit of contrast from | | | | | | the duodenum into the | | | | | | proximal jejunum | | | | | | wasnoted in the supine | | | | | | position. There was | | | | | | however a substantial | | | | | | amount of residual | | | | | | contrast within the | | | | | | stomachand proximal | | | | | | duodenum at the | | | | | | completion of the study. | | | | | | Transit from the | | | | | | duodenumdid not | | | | | | significantly improve | | | | | | with the patient in the | | | | | | prone push up | | | | | | position(as would be | | | | | | expected in classic SMA | | | | | | syndrome). Bones and | | | | | | soft tissues: Visualized | | | | | | portions are | | | | | | unremarkable IMPRESSION: | | | | | | 1. No gross | | | | | | esophageal dysmotility, | | | | | | mass or stricture. 2. 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 | | | | | | 3. Contrast was | | | | | | visualized crossing the | | | | | | midline with transit | | | | | | from the duodenumto | | | | | | jejunum, however there | | | | | | was substantial delayed | | | | | | transit of contrast | | | | | | throughthe stomach and | | | | | | duodenum proximal to the | | | | | | D3 duodenal | | | | | | diverticulum. | | | | | | Findingsmay be | | | | | | compatible with an | | | | | | intermittent SMA-type | | | | | | syndrome, however also | | | | | | raiseconcern for delayed | | | | | | gastric emptying. | | | | | | Attending Radiologists: | | | | | | GUSTABO OSMAN MDAuthor: | | | | | | COLLEEN NIÑO MD I | | | | | | personally reviewed the | | | | | | images and, if | | | | | | necessary, edited the | | | | | | report. I agreewith the | | | | | | report as now presented. | | | | | | | | | | | | Final/Electronically | | | | | | signed / GUSTABO OSMAN | | | | | | 07/24/2016 9:54 AM | | | | | | Pending final approval | | | | | | / COLLEEN NIÑO | | | | | | 07/23/2016 17:48 PM | | | | | | Preliminary / COLLEEN | | | | | | RENAY 07/23/2016 16:02 | | | | | | PM | | | | + + + + + + + + | Specimen | + + | | + + + +---------+ + + | Performing | Address | City/State/Zipcode | Phone Number | | Organization | | | | + +---------+ + + | [facility] OF | | | | | RADIOLOGY | | | | + +---------+ + + X-RAY PORTABLE CHEST 1 VIEW (07/23/2016 3:10 PM PST) + + + + + + | Component | Value | Ref Range | Performed | Pathologist | | | | | At | Signature | + + + + + + | X-RAY | EXAM: NE CHEST 1 VIEW | | | | | PORTABLE | 07/23/16 15:10:00 | | | | | CHEST 1 | HISTORY: PICC placement | | | | | VIEW | COMPARISON: None. | | | | | | FINDINGS: Left upper | | | | | | extremity PICC tip is | | | | | | near the cavoatrial | | | | | | junction. Enteric | | | | | | tubecourses below the | | | | | | diaphragm and terminates | | | | | | outside of the imaged | | | | | | area. | | | | | | Thecardiomediastinal | | | | | | silhouette is | | | | | | unremarkable. The lungs | | | | | | are clear. There is | | | | | | nolarge pleural | | | | | | effusion, pneumothorax | | | | | | or pulmonary edema. | | | | | | IMPRESSION: Left upper | | | | | | extremity PICC tip near | | | | | | the cavoatrial junction. | | | | | | Clear lungs. Attending | | | | | | Radiologists: KI | | | | | | VANI BROWNLEEuthor: KI | | | | | | MD KEM I personally | | | | | | reviewed the images and, | | | | | | if necessary, edited | | | | | | the report. I agreewith | | | | | | the report as now | | | | | | presented. | | | | | | Final/Electronically | | | | | | signed / KI | | | | | | KEM 07/23/2016 15:19 PM | | | | | | | | | | + + + + + + + + | Specimen | + + | | + + + +---------+ + + | Performing | Address | City/State/Zipcode | Phone Number | | Organization | | | | + +---------+ + + | [facility] OF | | | | | RADIOLOGY | | | | + +---------+ + + JENNY GEE (07/23/2016 2:46 PM PST) + + + | Narrative | Performed At | + + + | Basilio Clark RN 07/23/2016 2:46 PM PICC LINE Performed by: | | | BASILIO CLARK Authorized by: MARY HER PICC/Georgette | | | Insertion Procedure Note Indications:TPN Procedure location: | | | Unit:[facility] Room: 54 Providers: Attending name: Attending | | | physically present: No PICC Nurse name: Concha Clark RN Pre-Procedure | | | Consent: written consent obtained Consent given by: Patient | | | Patient identity confirmed per protocol: Yes CLABSI Prevention | | | Bundle: Skin preparation: Chloraprep Protective barrier: | | | Cap, Mask, Hand scrub, Gown, Gloves and Full body drape..Sterile | | | Ultrasound techniques (sterile gel, and sterile probe cover) used | | | Dressing: Dressing applied prior of removal | | | of full barrier drape and hemostatic agent applied Procedure | | | Details Patient was placed in appropriate position The vascular | | | anatomy was identified by Ultrasound Guidance.wire through the | | | needle, introducer over the wire, then catheter through the introducer | | | Tip was placed using TLS (Tip Locating System) and TPS (Tip | | | Positioning System). . A non-tunneled PICC Double lumen 5 Fr | | | was placed in the Left Arm area Basilic vein. Catheter lot number: | | | [id number] with a length of 55 cm was selected and trimmed 9 to | | | a remaining length of 46 cm All ports aspirated for blood and | | | flushed with saline Power-injectable line: yes Attempts 1 | | | attempt(s) were made Complications None PICC catheter tip | | | location Chest radiograph ordered to verify placement and Line | | | verified by radiograph Adjustments made after chest film obtained: | | | none External measurement of catheter exposed: 4 cm. PICC catheter | | | tip location: Cavo-Atrial Junction Estimated blood loss: <10mL | | + + + CBC (HEMOGRAM) ONLY (07/23/2016 10:33 AM PST) + + + + + + | Component | Value | Ref Range | Performed | Pathologist | | | | | At | Signature | + + + + + + | WHITE CELL | 5.78 | 3.50 - 10.80 | [facility] | | | COUNT | | K/cu mm | LABORATORY | | | | | | SERVICES, | | | | | | CORE | | + + + + + + | RED CELL | 3.97 (L) | 4.50 - 6.00 | [facility] | | | COUNT | | M/cu mm | LABORATORY | | | | | | SERVICES, | | | | | | CORE | | + + + + + + | HEMOGLOBIN | 7.8 (L) | 13.5 - 17.5 | [facility] | | | | | g/dL | LABORATORY | | | | | | SERVICES, | | | | | | CORE | | + + + + + + | HEMATOCRIT | 26.7 (L) | 41.0 - 53.0 % | [facility] | | | | | | LABORATORY | | | | | | SERVICES, | | | | | | CORE | | + + + + + + | MCV | 67.3 (L) | 80.0 - 96.0 fL | [facility] | | | | | | LABORATORY | | | | | | SERVICES, | | | | | | CORE | | + + + + + + | MCHC | 29.2 | 33.0 - 35.5 | [facility] | | | | | g/dL | LABORATORY | | | | | | SERVICES, | | | | | | CORE | | + + + + + + | RDW SD | 42.3 | 35.1 - 46.3 fL | [facility] [...] + + + + | MPV | 9.4 (L) | 9.7 - 12.3 fL | [...] + + | Blood - Blood | | (substance) | + + + + + | Narrative | Performed At | + + + | New adult WBC reference ranges effective June 04, 2016. | [facility] | | | LABORATORY | | | SERVICES, CORE | + + + + + + + + | Performing | Address | City/State/Zipcode | Phone Number | | Organization | | | | + + + + + | [facility] | [address] | [place] [address] | | | SERVICES, CORE | [address] | | | + + + + + C-REACTIVE PROTEIN (07/23/2016 10:33 AM PST) + +-------+ + + + | Component | Value | Ref Range | Performed | Pathologist | | | | | At | Signature | + +-------+ + + + | C-REACTIVE | 4.9 | <10.0 mg/L | [facility] | | | PROTEIN | | | LABORATORY | | | | | | SERVICES, | | | | | | CORE | | + +-------+ + + + + + | Specimen | + + | Blood - Blood | | (substance) | + + + + + | Narrative | Performed At | + + + | New method, new reference range and new reporting units as of | [facility] | | 12/21/2013. | LABORATORY | | | SERVICES, CORE | + + + + + + + + | Performing | Address | City/State/Zipcode | Phone Number | | Organization | | | | + + + + + | [facility] | [address] | [place] [address] | | | SERVICES, CORE | [address] | | | + + + + + MAGNESIUM, PLASMA (07/23/2016 10:33 AM PST) + +-------+ + + + | Component | Value | Ref Range | Performed | Pathologist | | | | | At | Signature | + +-------+ + + + | MAGNESIUM,P | 2.5 | 1.8 - 2.5 mg/dL | [facility] | | | [facility] | | | LABORATORY | | | | | | SERVICES, | | | | | | CORE | | + +-------+ + + + + + | Specimen | + + | Blood - Blood | | (substance) | + + + + + + + | Performing | Address | City/State/Zipcode | Phone Number | | Organization | | | | + + + + + | [facility] | [address] | [place] [address] | | | SERVICES, CORE | [address] | | | + + + + + LIVER SET (AST,ALT,BILI TOTAL,BILI DIRECT,ALK PHOS,ALB,PROT TOTAL) (07/23/2016 10:33 AM PST ) + +---------+ + + + | Component | Value | Ref Range | Performed | Pathologist | | | | | At | Signature | + +---------+ + + + | ALBUMIN, | 3.1 (L) | 3.5 - 4.7 g/dL | [...] +---------+ + + + | BILIRUBIN | 0.1 | 0.0 - 0.3 mg/dL | [facility] | | | DIRECT | | | LABORATORY | | | | | | SERVICES, | | | | | | CORE | | + +---------+ + + + | ALK PHOS | 56 | 53 - 128 U/L | [facility] | | | | | | LABORATORY | | | | | | SERVICES, | | | | | | CORE | | + +---------+ + + + | AST(SGOT) | 20 | <=41 U/L | [facility] | | | | | | LABORATORY | | | | | | SERVICES, | | | | | | CORE | | + +---------+ + + + | ALT (SGPT) | 13 | <=60 U/L | [facility] | | | | | | LABORATORY | | | | | | SERVICES, | | | | | | CORE | | + +---------+ + + + | TOTAL | 6.6 | 6.4 - 8.2 g/dL | [facility] [...] | + +---------+ + + + | SAMANI T CMNT | No Hemo | | [facility] | | | | | | LABORATORY | | | | | | SERVICES, | | | | | | CORE | | + +---------+ + + + | DAYTON Casas CMNT | No Hemo | | [facility] | | | | | | LABORATORY | | | | | | SERVICES, | | | | | | CORE | | + +---------+ + + + + + | Specimen | + + | Blood - Blood | | (substance) | + + + + + + + | Performing | Address | City/State/Zipcode | Phone Number | | Organization | | | | + + + + + | [facility] | [address] | [place] [address] | | | SERVICES, CORE | [address] | | | + + + + + RENAL FUNCTION SET (NA,K,CL,CO2,BUN,CREAT,GLUC,CA,PHOS,ALB ) (07/23/2016 10:33 AM PST) + + + + + + | Component | Value | Ref Range | Performed | Pathologist | | | | | At | Signature | + + + + + + | GLUCOSE, | 57 (L) | 60 - 99 mg/dL | [facility] | | | PLASMA | | | LABORATORY | | | (LAB) | | | SERVICES, | | | | | | CORE | | + + + + + + | BUN, PLASMA | 9 | 6 - 20 mg/dL | [facility] | | | (LAB) | | | LABORATORY | | | | | | SERVICES, | | | | | | CORE | | + + + + + + | CREATININE | 0.65 (L) | 0.70 - 1.30 | [facility] | | | PLASMA | | mg/dL | LABORATORY | | | (LAB) | | | SERVICES, | | | | | | CORE | | + + + + + + | EGFR | >60 | >60 mL/min | [facility] | | | - | | | LABORATORY | | | JORDANIAN | | | SERVICES, | | | | | | CORE | | + + + + + + | EGFR NON | >60 | >60 mL/min | [facility] | | | -EFRA | | | LABORATORY | | | RICAN | | | SERVICES, | | | | | | CORE | | + + + + + + | SODIUM, | 141 | 136 - 145 | [facility] | | | PLASMA | | mmol/L | LABORATORY | | | (LAB) | | | SERVICES, | | | | | | CORE | | + + + + + + | POTASSIUM, | 3.4 | 3.4 - 5.0 | [facility] | | | PLASMA | | mmol/L | LABORATORY | | | (LAB) | | | SERVICES, | | | | | | CORE | | + + + + + + | CHLORIDE, | 104 [...] + + + + + + | CALCIUM(ALB | 9.4 | 8.6 - 10.2 | [facility] | | | CORRECTED) | | mg/dL | LABORATORY | | | | | | SERVICES, | | | | | | CORE | | + + + + + + | ALBUMIN, | 3.1 (L) | 3.5 - 4.7 g/dL | [facility] | | | PLASMA | | | LABORATORY | | | (LAB) | | | SERVICES, | | | | | | CORE | | + + + + + + | PHOSPHORUS, | 3.4 | 2.4 - 4.7 mg/dL | [facility] [...] + + + | ANION GAP | 15 | mmol/L | [facility] | | | | | | LABORATORY | | | | | | SERVICES, | | | | | | CORE | | + + + + + + | ANION | 17 (H) | 4 - 11 mmol/L | [facility] | | | GAP(ALB | | | LABORATORY | | | CORRECTED) | | | SERVICES, | | | | | | CORE | | + + + + + + + + | Specimen | + + | Blood - Blood | | (substance) | + + + + + | [...] + + + + + | [facility] | [address] | [place] [address] | | | SERVICES, CORE | [address] | | | + + + + + X-RAY PORTABLE 2 VIEW ABDOMEN (KUB AND UPRIGHT) (07/22/2016 6:54 PM PST) + + + + + + | Component | Value | Ref Range | Performed | Pathologist | | | | | At | Signature | + + + + + + | X-RAY | Indication: Evaluate | | | | | PORTABLE 2 | obstruction. Comparison: | | | | | VIEWS | 07/22/2016. Abdomen, 2 | | | | | ABDOMEN | views. | | | | | (KUB AND | Findings/impression: A | | | | | UPRIGHT) | nasogastric tube is | | | | | | noted in the distal | | | | | | stomach/proximal | | | | | | duodenum, unchanged. | | | | | | There is a nonobstructed | | | | | | bowel gas pattern. | | | | | | Nopneumatosis, portal | | | | | | venous gas, or | | | | | | subdiaphragmatic free | | | | | | air. No acute osseousor | | | | | | soft tissue | | | | | | abnormalities. Healing | | | | | | right sided rib fracture | | | | | | is unchanged.The lung | | | | | | bases are clear. | | | | | | Attending Radiologists: | | | | | | GUSTABO OSMAN MDAuthor: | | | | | | GUSTABO OSMAN MD I | | | | | | personally reviewed the | | | | | | images and, if | | | | | | necessary, edited the | | | | | | report. I agreewith the | | | | | | report as now presented. | | | | | | | | | | | | Final/Electronically | | | | | | signed / GUSTABO OSMAN | | | | | | 07/23/2016 10:54 AM | | | | + + + + + + + + | Specimen | + + | | + + + +---------+ + + | Performing | Address | City/State/Zipcode | Phone Number | | Organization | | | | + +---------+ + + | [facility] DEPARTMENT OF | | | | | RADIOLOGY | | | | + +---------+ + + X-RAY ABD LTD FEEDING TUBE EVAL PORTABLE (07/22/2016 10:40 AM PST) + + + + + + | Component | Value | Ref Range | Performed | Pathologist | | | | | At | Signature | + + + + + + | X-RAY ABD | EXAM: Single | | | | | LTD FEEDING | semi-upright view of the | | | | | TUBE EVAL | abdomen. History: NG | | | | | PORTABLE | tube placement. | | | | | | Comparison: Outside | | | | | | radiograph 07/21/2016. | | | | | | IMPRESSION: NG tube has | | | | | | been advanced, now | | | | | | terminating in the | | | | | | distal stomach. No free | | | | | | air.No evidence of bowel | | | | | | obstruction. Lung | | | | | | bases are clear. | | | | | | Attending Radiologists: | | | | | | DELMI JONES, | | | | | | MDAuthor: DELMI | | | | | | MD KAREN I | | | | | | personally reviewed the | | | | | | images and, if | | | | | | necessary, edited the | | | | | | report. I agreewith the | | | | | | report as now presented. | | | | | | | | | | | | Final/Electronically | | | | | | signed / DELMI | | | | | | KAREN 07/22/2016 | | | | | | 12:44 PM | | | | + + + + + + + + | Specimen | + + | | + + + +---------+ + + | Performing | Address | City/State/Zipcode | Phone Number | | Organization | | | | + +---------+ + + | [facility] | | | | | [facility] | | | | + +---------+ + + CBC AND AUTO DIFF (07/22/2016 7:11 AM PST) + + + + + + | Component | Value | Ref Range | Performed | Pathologist | | | | | At | Signature | + + + + + + | WHITE CELL | 6.78 | 3.50 - 10.80 | [facility] | | | COUNT | | K/cu mm | LABORATORY | | | | | | SERVICES, | | | | | | CORE | | + + + + + + | RED CELL | 3.33 (L) | 4.50 - 6.00 | [facility] | | | COUNT | | M/cu mm | LABORATORY | | | | | | SERVICES, | | | | | | CORE | | + + + + + + | HEMOGLOBIN | 6.5 (L) | 13.5 - 17.5 | [facility] | | | | | g/dL | LABORATORY | | | | | | SERVICES, | | | | | | CORE | | + + + + + + | HEMATOCRIT | 22.1 (L) | 41.0 - 53.0 % | [facility] | | | | | | LABORATORY | | | | | | SERVICES, | | | | | | CORE | | + + + + + + | MCV | 66.4 (L) | 80.0 - 96.0 fL | [facility] | | | | | | LABORATORY | | | | | | SERVICES, | | | | | | CORE | | + + + + + + | MCHC | 29.4 | 33.0 - 35.5 | [facility] | | | | | g/dL | LABORATORY | | | | | | SERVICES, | | | | | | CORE | | + + + + + + | RDW SD | 42.0 | 35.1 - 46.3 fL | [facility] | | | | | | LABORATORY | | | | | | SERVICES, | | | | | | CORE | | + + + + + + | PLATELET | 243 | 150 - 400 K/cu | [facility] [...] + + + + | NEUTROPHIL | 75.6 (H) | 50.0 - 70.0 % | [facility] | | | % | | | LABORATORY | | | | | | SERVICES, | | | | | | CORE | | + + + + + + | LYMPHOCYTE | 17.4 (L) | 18.0 - 42.0 % | [facility] | | | % | | | LABORATORY | | | | | | SERVICES, | | | | | | CORE | | + + + + + + | MONOCYTE % | 5.6 | 3.5 - 9.0 % | [facility] | | | | | | LABORATORY | | | | | | SERVICES, | | | | | | CORE | | + + + + + + | EOS % | 0.4 (L) | 1.0 - 3.0 % | [facility] | | | | | | LABORATORY | | | | | | SERVICES, | | | | | | CORE | | + + + + + + | BASO % | 0.6 | 0.0 - 2.0 % | [facility] | | | | | | LABORATORY | | | | | | SERVICES, | | | | | | CORE | | + + + + + + | IG% | 0.4Comment: Immature | 0.0 - 0.6 % | [facility] | | | | Granulocytes (IG) | | LABORATORY | | | | include metamyelocytes, | | SERVICES, | | | | myelocytes and | | CORE | | | | promyelocytes. Bands | | | | | | are not included in the | | | | | | IG count. Bands are | | | | | | included in the | | | | | | neutrophil count. | | | | + + + + + + | NEUTROPHIL | 5.12 | 1.80 - 7.70 | [facility] | | | # | | K/cu mm | LABORATORY | | | | | | SERVICES, | | | | | | CORE | | + + + + + + | LYMPHOCYTE | 1.18 | 1.00 - 4.80 | [facility] | | | # | | K/cu mm | LABORATORY | | | | | | SERVICES, | | | | | | CORE | | + + + + + + | MONOCYTE # | 0.38 | 0.10 - 0.90 | [facility] | | | | | K/cu mm | LABORATORY | | | | | | SERVICES, | | | | | | CORE | | + + + + + + | EOS # | 0.03 | 0.00 - 0.50 | [facility] | | | | | K/cu mm | LABORATORY | | | | | | SERVICES, | | | | | | CORE | | + + + + + + | BASO # | 0.04 | 0.00 - 0.10 | [facility] | | | | | K/cu mm | LABORATORY | | | | | | SERVICES, | | | | | | CORE | | + + + + + + | IG# | 0.03 | 0.00 - 0.03 | [facility] | | | | | K/cu mm | LABORATORY | | | | | | SERVICES, | | | | | | CORE | | + + + + + + + + | Specimen | + + | Blood - Blood | | (substance) | + + + + + | Narrative | Performed At | + + + | New adult WBC reference ranges effective June 04, 2016. | [facility] | | Immature Granulocytes (IG) include metamyelocytes, myelocytes and | LABORATORY | | promyelocytes. Bands are not included in the IG count. Bands are | SERVICES, CORE | | included in the neutrophil count. | | + + + + + + + + | Performing | Address | City/State/Zipcode | Phone Number | | Organization | | | | + + + + + | [facility] | [address] | [place] [address] | | | SERVICES, CORE | [address] | | | + + + + + PREALBUMIN (07/22/2016 7:11 AM PST) + + + + + + | Component | Value | Ref Range | Performed | Pathologist | | | | | At | Signature | + + + + + + | PREALBUMIN | 10.6 (L) | 17.0 - 42.0 | [facility] | | | | | mg/dL | [facility] | | | | | [place] | | + + + + + + + + | Specimen | + + | Blood - Blood | | (substance) | + + + + + + + | Performing | Address | City/State/Zipcode | Phone Number | | Organization | | | | + + + + + | [facility] | [address] | [place] [address] | | | [place] | | | | + + + + + PHOSPHORUS, PLASMA (07/22/2016 7:11 AM PST) + +---------+ + + + | Component | Value | Ref Range | Performed | Pathologist | | | | | At | Signature | + +---------+ + + + | PHOSPHORUS, | 2.3 (L) | 2.4 - 4.7 mg/dL | [facility] | | | PLASMA | | | LABORATORY | | | (LAB) | | | SERVICES, | | | | | | CORE | | + +---------+ + + + + + | Specimen | + + | Blood - Blood | | (substance) | + + + + + + + | Performing | Address | City/State/Zipcode | Phone Number | | Organization | | | | + + + + + | [facility] | [address] | [place] [address] | | | SERVICES, CORE | [address] | | | + + + + + MAGNESIUM, PLASMA (07/22/2016 7:11 AM PST) + +---------+ + + + | Component | Value | Ref Range | Performed | Pathologist | | | | | At | Signature | + +---------+ + + + | MAGNESIUM,P | 1.7 (L) | 1.8 - 2.5 mg/dL | [facility] | | | LASMA | | | LABORATORY | | | | | | SERVICES, | | | | | | CORE | | + +---------+ + + + + + | Specimen | + + | Blood - Blood | | (substance) | + + + + + + + | Performing | Address | City/State/Zipcode | Phone Number | | Organization | | | | + + + + + | [facility] | [address] | [place] [address] | | | SERVICES, CORE | [address] | | | + + + + + COMPLETE METABOLIC SET (NA,K,CL,CO2,BUN,CREAT,GLUC,CA,AST,ALT,BILI TOTAL,ALK PHOS,ALB,PROT TOTAL) (07/22/2016 7:11 AM PST) + + + + + + | Component | Value | Ref Range | Performed | Pathologist | | | | | At | Signature | + + + + + + | GLUCOSE, | 83 | 60 - 99 mg/dL | [facility] | | | PLASMA | | | LABORATORY | | | (LAB) | | | SERVICES, | | | | | | CORE | | + + + + + + | BUN, PLASMA | 9 | 6 - 20 mg/dL | [facility] [...] | | | LABORATORY | | | JORDANIAN | | | SERVICES, | | | | | | CORE | | + + + + + + | EGFR NON | >60 | >60 mL/min | [facility] | | | -EFRA | | | LABORATORY | | | RICAN | | | SERVICES, | | | | | | CORE | | + + + + + + | SODIUM, | 140 | 136 - 145 | [facility] | | | PLASMA | | mmol/L | LABORATORY | | | (LAB) | | | SERVICES, | | | | | | CORE | | + + + + + + | POTASSIUM, | 3.3 (L) | 3.4 - 5.0 | [facility] | [...] + + + + | CALCIUM, | 7.6 (L) | 8.6 - 10.2 | [facility] | | | PLASMA | | mg/dL | LABORATORY | | | (LAB) | | | SERVICES, | | | | | | CORE | | + + + + + + | CALCIUM(ALB | 8.6 | 8.6 - 10.2 | [facility] | | | CORRECTED) | | mg/dL | LABORATORY | | | | | | SERVICES, | | | | | | CORE | | + + + + + + | BILIRUBIN | 0.3 | 0.3 - 1.2 mg/dL | [facility] | | | TOTAL | | | LABORATORY | | | | | | SERVICES, | | | | | | CORE | | + + + + + + | TOTAL | 5.6 (L) | 6.4 - 8.2 g/dL | [facility] | | | PROTEIN, | | | LABORATORY | | | PLASMA | | | SERVICES, | | | (LAB) | | | CORE | | + + + + + + | ALBUMIN, | 2.7 (L) | 3.5 - 4.7 g/dL | [facility] | | | PLASMA | | | LABORATORY | | | (LAB) | | | SERVICES, | | | | | | CORE | | + + + + + + | ALK PHOS | 46 (L) | 53 - 128 U/L | [facility] | | | | | | LABORATORY | | | | | | SERVICES, | | | | | | CORE | | + + + + + + | AST(SGOT) | 13 | <=41 U/L | [facility] | | | | | | LABORATORY | | | | | | SERVICES, | | | | | | CORE | | + + + + + + | ALT (SGPT) | 11 | <=60 U/L | [facility] | | | | [...] + + + + + | ANION | 12 (H) | 4 - 11 mmol/L | [facility] [...] + + + + + + | BILI T CMNT | No Hemo | | [facility] | | | | | | LABORATORY | | | | | | SERVICES, | | | | | | CORE | | + + + + + + | AST CMNT | No Hemo | | [facility] | | | | | | LABORATORY | | | | | | SERVICES, | | | | | | CORE | | + + + + + + + + | Specimen | + + | Blood - Blood | | (substance) | + + + + + | [...] + + + + + | [facility] | [address] | [place] [address] | | | SERVICES, CORE | [address] | | | + + + + + documented in this encounter Visit Diagnoses + + | Diagnosis | + + | Intestinal obstruction, unspecified type - Primary | + + | Esophageal stricture Stricture and stenosis of esophagus | + + | Bowel obstruction (HCC) Unspecified intestinal obstruction | + + documented in this encounter Administered Medications + +--------+ +--------+------+------+ | Medication Order | MAR | Action | Dose | Rate | Site | | | Action | Date | | | | + +--------+ +--------+------+------+ | acetaminophen (TYLENOL) tablet | Given | 07/30/19 | 650 mg | | | | 325-650 mg 325-650 mg, oral, | | 17 10:16 | | | | | EVERY 4 HOURS NEEDED, Starting | | AM PST | | | | | Liliana 07/24/16 at 0958, Until Fri | | | | | | | 08/01/16 at 2158, mild pain, | | | | | | | headache, fever | | | | | | + +--------+ +--------+------+------+ +-------+ +--------+---+---+ | Given | 07/29/19 | 650 mg | | | | | 17 9:27 | | | | | | AM PST | | | | +-------+ +--------+---+---+ | Given | 07/28/19 | 650 mg | | | | | 17 9:06 | | | | | | PM PST | | | | +-------+ +--------+---+---+ +---+---+ | | | +---+---+ + + + +------+---+------+ | alteplase (CATHFLO ACTIVASE) | Line | 07/30/19 | 2 mg | | PICC | | injection 2 mg 2 mg, | Lock | 17 7:55 | | | | | Intracatheter, NEEDED, | Instille | PM PST | | | | | Starting 07/30/16 at 1436, | d | | | | | | Until Thu08/01/16 at 2158, | | | | | | | occluded PICC | | | | | | + + + +------+---+------+ + +---+ | | | + +---+ | aluminum-magnesium | | | hydroxide-simethicone (MAALOX; | | | MYLANTA) 200-200-20 mg/5 mL | | | suspension 15 mL 15 mL, oral, | | | FOUR TIMES DAILY NEEDED, | | | Starting Liliana 07/24/16 at 2000, | | | Until Thu08/01/16 at 2158, | | | dyspepsia | | + +---+ | | | + +---+ + +-------+ +--------+---+---+ | ascorbic acid (vitamin C) | Given | 08/01/19 | 500 mg | | | | tablet 500 mg 500 mg, oral, | | 17 8:24 | | | | | DAILY, First dose on Thu07/31/16 | | AM PST | | | | | at 1130, Until Discontinued | | | | | | + +-------+ +--------+---+---+ +-------+ +--------+---+---+ | Given | 07/31/19 | 500 mg | | | | | 17 1:10 | | | | | | PM PST | | | | +-------+ +--------+---+---+ +---+---+ | | | +---+---+ + +-------+ +--------+---+---+ | buPROPion SR (WELLBUTRIN-SR, | Given | 07/31/19 | 150 mg | | | | ZYBAN) tablet 150 mg 150 mg, | | 17 8:31 | | | | | oral, TWICE DAILY, First dose on | | PM PST | | | | | 07/22/16 at 1345, Until | | | | | | | Discontinued | | | | | | + +-------+ +--------+---+---+ +-------+ +--------+---+---+ | Given | 07/31/19 | 150 mg | | | | | 17 8:45 | | | | | | AM PST | | | | +-------+ +--------+---+---+ | Given | 07/30/19 | 150 mg | | | | | 17 8:31 | | | | | | PM PST | | | | +-------+ +--------+---+---+ +---+---+ | | | +---+---+ + +-------+ +-------+---+---------+ | enoxaparin (LOVENOX) injection | Given | 07/28/19 | 30 mg | | Abdomen | | 30 mg 30 mg, subcutaneous, EVERY | | 17 9:01 | | | | | EVENING, First dose (after last | | PM PST | | | | | modification) on Thu07/25/16 at | | | | | | | 2100, Until Discontinued | | | | | | + +-------+ +-------+---+---------+ +-------+ +-------+---+---------+ | Given | 07/27/19 | 30 mg | | Abdomen | | | 17 10:21 | | | | | | PM PST | | | | +-------+ +-------+---+---------+ | Given | 07/26/19 | 30 mg | | Abdomen | | | 17 8:46 | | | | | | PM PST | | | | +-------+ +-------+---+---------+ +---+---+ | | | +---+---+ + +-------+ +-------+---+---------+ | enoxaparin (LOVENOX) injection | Given | 07/24/19 | 40 mg | | Abdomen | | 40 mg 40 mg, subcutaneous, EVERY | | 17 9:43 | | | | | EVENING, First dose on Thu | | PM PST | | | | | 07/23/16 at 2100, Until | | | | | | | Discontinued | | | | | | + +-------+ +-------+---+---------+ +-------+ +-------+---+---------+ | Given | 07/23/19 | 40 mg | | Abdomen | | | 17 8:18 | | | | | | PM PST | | | | +-------+ +-------+---+---------+ +---+---+ | | | +---+---+ + +-------+ +-------+---+---------+ | enoxaparin (LOVENOX) injection | Given | 07/31/19 | 40 mg | | Abdomen | | 40 mg 40 mg, subcutaneous, EVERY | | 17 8:31 | | | | | EVENING, First dose on Thu | | PM PST | | | | | 07/30/16 at 2100, Until | | | | | | | Discontinued | | | | | | + +-------+ +-------+---+---------+ +-------+ +-------+---+---------+ | Given | 07/30/19 | 40 mg | | Abdomen | | | 17 8:31 | | | | | | PM PST | | | | +-------+ +-------+---+---------+ +---+---+ | | | +---+---+ + +---------+ +-------+-------+---+ | famotidine in NS (PEPCID) IV 20 | New Bag | 07/25/19 | 20 mg | 200 | | | mg 20 mg, intravenous, TWICE | | 17 8:03 | | mL/hr | | | DAILY, First dose on Liliana 07/24/16 | | AM PST | | | | | at 2014, Until Discontinued | | | | | | + +---------+ +-------+-------+---+ +---------+ +-------+-------+---+ | New Bag | 07/24/19 | 20 mg | 200 | | | | 17 9:34 | | mL/hr | | | | PM PST | | | | +---------+ +-------+-------+---+ +---+---+ | | | +---+---+ + +---------+ +------+-------+---+ | fat emulsion (INTRALIPID) 20 % | New Bag | 07/23/19 | 16 g | 3.3 | | | IV infusion 16 g 16 g, | | 17 8:19 | | mL/hr | | | intravenous, TPN 2100, Starting | | PM PST | | | | | 07/23/16 at 2100, Until Liliana | | | | | | | 07/24/16 at 2058 | | | | | | + +---------+ +------+-------+---+ +---+---+ | | | +---+---+ + + + +------+---------+---+ | fat emulsion (INTRALIPID) 20 % | Rate/Dos | 07/25/19 | 19 g | 4 mL/hr | | | IV infusion 19 g 19 g, | e Verify | 17 11:41 | | | | | intravenous, TPN 2100, Starting | | AM PST | | | | | Liliana 07/24/16 at 2100, Until Fri | | | | | | | 07/25/16 at 2059 | | | | | | + + + +------+---------+---+ + + +------+---------+---+ | Rate/Dose Verify | 07/25/19 | 19 g | 4 mL/hr | | | | 17 8:08 | | | | | | AM PST | | | | + + +------+---------+---+ | Rate/Dose Verify | 07/25/19 | 19 g | 4 mL/hr | | | | 17 5:12 | | | | | | AM PST | | | | + + +------+---------+---+ +---+---+ | | | +---+---+ + + + +------+-------+---+ | fat emulsion (INTRALIPID) 20 % | Rate/Dos | 07/26/19 | 23 g | 4.8 | | | IV infusion 23 g 23 g, | e Verify | 17 5:06 | | mL/hr | | | intravenous, TPN 2100, Starting | | PM PST | | | | | 07/25/16 at 2100, Until Sat | | | | | | | 07/26/16 at 2058 | | | | | | + + + +------+-------+---+ + + +------+-------+---+ | Rate/Dose Verify | 07/26/19 | 23 g | 4.8 | | | | 17 12:17 | | mL/hr | | | | PM PST | | | | + + +------+-------+---+ | Rate/Dose Verify | 07/26/19 | 23 g | 4.8 | | | | 17 9:00 | | mL/hr | | | | AM PST | | | | + + +------+-------+---+ +---+---+ | | | +---+---+ + + + +------+-------+---+ | fat emulsion (INTRALIPID) 20 % | Rate/Dos | 07/27/19 | 23 g | 4.8 | | | IV infusion 23 g 23 g, | e Verify | 17 4:00 | | mL/hr | | | intravenous, TPN 2100, Starting | | PM PST | | | | | 07/26/16 at 2100, Until Sun | | | | | | | 07/27/16 at 2058 | | | | | | + + + +------+-------+---+ + + +------+-------+---+ | Rate/Dose Verify | 07/27/19 | 23 g | 4.8 | | | | 17 12:30 | | mL/hr | | | | PM PST | | | | + + +------+-------+---+ | Rate/Dose Verify | 07/27/19 | 23 g | 4.8 | | | | 17 9:00 | | mL/hr | | | | AM PST | | | | + + +------+-------+---+ +---+---+ | | | +---+---+ + + + +------+-------+---+ | fat emulsion (INTRALIPID) 20 % | Rate/Dos | 07/28/19 | 23 g | 4.8 | | | IV infusion 23 g 23 g, | e Verify | 17 8:00 | | mL/hr | | | intravenous, TPN 2100, Starting | | PM PST | | | | | 07/27/16 at 2099, Until Mon | | | | | | | 07/28/16 at 9 | | | | | | + + + +------+-------+---+ + + +------+-------+---+ | Rate/Dose Verify | 07/28/19 | 23 g | 4.8 | | | | 17 3:17 | | mL/hr | | | | PM PST | | | | + + +------+-------+---+ | Rate/Dose Verify | 07/28/19 | 23 g | 4.8 | | | | 17 8:49 | | mL/hr | | | | AM PST | | | | + + +------+-------+---+ +---+---+ | | | +---+---+ + +-------+ +--------+---+---+ | fentaNYL (SUBLIMAZE) injection | Given | 07/29/19 | 25 mcg | | | | intravenous, INTRAPROCEDURE PRN, | | 17 4:57 | | | | | Starting 07/29/16 at 1643, | | PM PST | | | | | Until 07/29/16 at 1657 | | | | | | + +-------+ +--------+---+---+ +-------+ +--------+---+---+ | Given | 07/29/19 | 50 mcg | | | | | 17 4:49 | | | | | | PM PST | | | | +-------+ +--------+---+---+ | Given | 07/29/19 | 25 mcg | | | | | 17 4:47 | | | | | | PM PST | | | | +-------+ +--------+---+---+ +---+---+ | | | +---+---+ + +-------+ +--------+---+---+ | fentaNYL (SUBLIMAZE) injection | Given | 07/29/19 | 25 mcg | | | | intravenous, INTRAPROCEDURE PRN, | | 17 5:14 | | | | | Starting [facility] 07/29/16 at 1715, | | PM PST | | | | | Until 07/29/16 at 1714 | | | | | | + +-------+ +--------+---+---+ +---+---+ | | | +---+---+ + +-------+ +--------+---+---+ | fentaNYL (SUBLIMAZE) injection | Given | 07/31/19 | 50 mcg | | | | intravenous, INTRAPROCEDURE PRN, | | 17 1:41 | | | | | Starting [facility] 07/31/16 at 1341, | | PM PST | | | | | Until [facility] 07/31/16 at 1341 | | | | | | + +-------+ +--------+---+---+ +---+---+ | | | +---+---+ + +-------+ +--------+---+---+ | fentaNYL (SUBLIMAZE) injection | Given | 07/31/19 | 50 mcg | | | | intravenous, INTRAPROCEDURE PRN, | | 17 1:43 | | | | | Starting Liliana 07/31/16 at 1343, | | PM PST | | | | | Until Liliana 07/31/16 at 1343 | | | | | | + +-------+ +--------+---+---+ +---+---+ | | | +---+---+ + +-------+ +--------+---+---+ | fentaNYL (SUBLIMAZE) injection | Given | 07/31/19 | 50 mcg | | | | intravenous, INTRAPROCEDURE PRN, | | 17 1:45 | | | | | Starting Liliana 07/31/16 at 1345, | | PM PST | | | | | Until Liliana 07/31/16 at 1345 | | | | | | + +-------+ +--------+---+---+ +---+---+ | | | +---+---+ + +-------+ +--------+---+---+ | fentaNYL (SUBLIMAZE) injection | Given | 07/31/19 | 50 mcg | | | | intravenous, INTRAPROCEDURE PRN, | | 17 1:56 | | | | | Starting Liliana 07/31/16 at 1356, | | PM PST | | | | | Until Liliana 07/31/16 at 1356 | | | | | | + +-------+ +--------+---+---+ +---+---+ | | | +---+---+ + +-------+ +--------+---+---+ | guaiFENesin LA (MUCINEX) tablet | Given | 07/31/19 | 600 mg | | | | 600 mg 600 mg, oral, TWICE | | 17 9:50 | | | | | DAILY, First dose on Thu07/28/16 | | PM PST | | | | | at 2200, Until Discontinued | | | | | | + +-------+ +--------+---+---+ +-------+ +--------+---+---+ | Given | 07/31/19 | 600 mg | | | | | 17 8:45 | | | | | | AM PST | | | | +-------+ +--------+---+---+ | Given | 07/30/19 | 600 mg | | | | | 17 8:31 | | | | | | PM PST | | | | +-------+ +--------+---+---+ +---+---+ | | | +---+---+ + +-------+ +--------+---+---+ | HYDROmorphone (DILAUDID) | Given | 07/22/19 | 0.3 mg | | | | injection 0.25-0.5 mg 0.25-0.5 | | 17 2:46 | | | | | mg, intravenous, EVERY 2 HOURS | | PM PST | | | | | NEEDED, Starting Tu07/22/16 at | | | | | | | 0523, Until Thu07/25/16 at 0944, | | | | | | | severe pain | | | | | | + +-------+ +--------+---+---+ +---+---+ | | | +---+---+ + +-------+ +--------+---+---+ | iohexol (OMNIPAQUE) 350 mg | Given | 07/24/19 | 100 mL | | | | iodine/mL injection 100 mL 100 | | 17 8:42 | | | | | mL, intravenous, PROCEDURE ONCE, | | PM PST | | | | | 1 dose, [facility] 07/24/16 at 2045 | | | | | | + +-------+ +--------+---+---+ +---+---+ | | | +---+---+ + +-------+ +-------+---+---+ | iohexol (OMNIPAQUE) 350 mg | Given | 07/31/19 | 80 mL | | | | iodine/mL injection 80 mL 80 mL, | | 17 9:35 | | | | | intravenous, PROCEDURE ONCE, 1 | | AM PST | | | | | dose, [facility] 07/31/16 at 0945 | | | | | | + +-------+ +-------+---+---+ +---+---+ | | | +---+---+ + +---------+ +--------+-------+---+ | iron sucrose (VENOFER) 200 mg | New Bag | 08/01/19 | 200 mg | 160 | | | in NaCl 0.9 % IV 200 mg, | | 17 8:17 | | mL/hr | | | intravenous, ONCE, 1 dose, Fri | | AM PST | | | | | 08/01/16 at 0730 | | | | | | + +---------+ +--------+-------+---+ +---+---+ | | | +---+---+ + +---------+ + + +---+ | lactated ringers IV 75 mL/hr, | New Bag | 07/23/19 | 75 mL/hr | 75 mL/hr | | | intravenous, CONTINUOUS, Starting | | 17 4:01 | | | | | 07/22/16 at 0600, Until Liliana | | PM PST | | | | | 07/24/16 at 0957 | | | | | | + +---------+ + + +---+ + + + + +---+ | Rate/Dose Change | 07/23/19 | 75 mL/hr | 75 mL/hr | | | | 17 10:20 | | | | | | AM PST | | | | + + + + +---+ | New Bag | 07/23/19 | 100 | 100 | | | | 17 4:00 | mL/hr | mL/hr | | | | AM PST | | | | + + + + +---+ +---+---+ | | | +---+---+ + +-------+ +------+---+---+ | lidocaine viscous (XYLOCAINE | Given | 07/29/19 | 8 mL | | | | VISCOUS) 2 % mucosal solution | | 17 4:22 | | | | | Mouth/Throat, INTRAPROCEDURE PRN, | | PM PST | | | | | Starting 07/29/16 at 1622, | | | | | | | Until e 07/29/16 at 1622 | | | | | | + +-------+ +------+---+---+ +---+---+ | | | +---+---+ + +-------+ +------+---+---+ | lidocaine viscous (XYLOCAINE | Given | 07/31/19 | 9 mL | | | | VISCOUS) 2 % mucosal solution | | 17 1:37 | | | | | Mouth/Throat, INTRAPROCEDURE PRN, | | PM PST | | | | | Starting [facility] 07/31/16 at 1337, | | | | | | | Until Liliana 07/31/16 at 1337 | | | | | | + +-------+ +------+---+---+ +---+---+ | | | +---+---+ + +-------+ +-------+---+---+ | loratadine (CLARITIN) tablet 10 | Given | 08/01/19 | 10 mg | | | | mg 10 mg, oral, DAILY, First | | 17 8:24 | | | | | dose on 07/27/16 at 1500, Until | | AM PST | | | | | Discontinued | | | | | | + +-------+ +-------+---+---+ +-------+ +-------+---+---+ | Given | 07/31/19 | 10 mg | | | | | 17 8:46 | | | | | | AM PST | | | | +-------+ +-------+---+---+ | Given | 07/30/19 | 10 mg | | | | | 17 8:23 | | | | | | AM PST | | | | +-------+ +-------+---+---+ +---+---+ | | | +---+---+ + +---------+ +-----+---+---+ | magnesium sulfate in water IV | New Bag | 07/22/19 | 4 g | | | | (RTU) 4 g 4 g, intravenous, | | 17 5:32 | | | | | ONCE, 1 dose, 07/22/16 at 1600 | | PM PST | | | | + +---------+ +-----+---+---+ +---+---+ | | | +---+---+ + +-------+ +------+---+---+ | midazolam (PF) (VERSED) | Given | 07/29/19 | 1 mg | | | | injection INTRAPROCEDURE PRN, | | 17 4:57 | | | | | Starting 07/29/16 at 1643, | | PM PST | | | | | Until e 07/29/16 at 1657 | | | | | | + +-------+ +------+---+---+ +-------+ +------+---+---+ | Given | 07/29/19 | 2 mg | | | | | 17 4:49 | | | | | | PM PST | | | | +-------+ +------+---+---+ | Given | 07/29/19 | 1 mg | | | | | 17 4:47 | | | | | | PM PST | | | | +-------+ +------+---+---+ +---+---+ | | | +---+---+ + +-------+ +------+---+---+ | midazolam (PF) (VERSED) | Given | 07/29/19 | 1 mg | | | | injection INTRAPROCEDURE PRN, | | 17 5:14 | | | | | Starting Thu07/29/16 at 1714, | | PM PST | | | | | Until Thu07/29/16 at 1714 | | | | | | + +-------+ +------+---+---+ +---+---+ | | | +---+---+ + +-------+ +------+---+---+ | midazolam (PF) (VERSED) | Given | 07/31/19 | 2 mg | | | | injection INTRAPROCEDURE PRN, | | 17 1:41 | | | | | Starting Liliana 07/31/16 at 1341, | | PM PST | | | | | Until Liliana 07/31/16 at 1341 | | | | | | + +-------+ +------+---+---+ +---+---+ | | | +---+---+ + +-------+ +------+---+---+ | midazolam (PF) (VERSED) | Given | 07/31/19 | 2 mg | | | | injection INTRAPROCEDURE PRN, | | 17 1:43 | | | | | Starting Liliana 07/31/16 at 1343, | | PM PST | | | | | Until Liliana 07/31/16 at 1343 | | | | | | + +-------+ +------+---+---+ +---+---+ | | | +---+---+ + +-------+ +------+---+---+ | midazolam (PF) (VERSED) | Given | 07/31/19 | 2 mg | | | | injection INTRAPROCEDURE PRN, | | 17 1:45 | | | | | Starting Liliana 07/31/16 at 1345, | | PM PST | | | | | Until Liliana 07/31/16 at 1345 | | | | | | + +-------+ +------+---+---+ +---+---+ | | | +---+---+ + +-------+ + +---+---+ | multivitamin-minerals 1 tablet | Given | 08/01/19 | 1 tablet | | | | 1 tablet, oral, DAILY, First | | 17 8:24 | | | | | dose on Liliana 07/31/16 at 1130, | | AM PST | | | | | Until Discontinued | | | | | | + +-------+ + +---+---+ +-------+ + +---+---+ | Given | 07/31/19 | 1 tablet | | | | | 17 1:10 | | | | | | PM PST | | | | +-------+ + +---+---+ +---+---+ | | | +---+---+ + +---------+ + + +---+ | NaCl 0.9 % solution 50 mL/hr, | New Bag | 08/01/19 | 50 mL/hr | 50 mL/hr | | | intravenous, CONTINUOUS, Starting | | 17 6:27 | | | | | 07/29/16 at 1715, Until Fri | | AM PST | | | | | 08/01/16 at 2158 | | | | | | + +---------+ + + +---+ + + + + +---+ | Rate/Dose Verify | 08/01/19 | 50 mL/hr | 50 mL/hr | | | | 17 3:00 | | | | | | AM PST | | | | + + + + +---+ | Rate/Dose Verify | 07/31/19 | 50 mL/hr | 50 mL/hr | | | | 17 9:51 | | | | | | PM PST | | | | + + + + +---+ +---+---+ | | | +---+---+ + +-------+ +-------+---+---+ | omeprazole (PRILOSEC) oral | Given | 07/30/19 | 40 mg | | | | suspension (compound) 40 mg 40 | | 17 5:17 | | | | | mg, oral, BEFORE BREAKFAST, First | | AM PST | | | | | dose on 07/26/16 at 0630, | | | | | | | Until Discontinued | | | | | | + +-------+ +-------+---+---+ +-------+ +-------+---+---+ | Given | 07/28/19 | 40 mg | | | | | 17 6:19 | | | | | | AM PST | | | | +-------+ +-------+---+---+ | Given | 07/27/19 | 40 mg | | | | | 17 5:41 | | | | | | AM PST | | | | +-------+ +-------+---+---+ +---+---+ | | | +---+---+ + +-------+ +-------+---+---+ | omeprazole (PRILOSEC) oral | Given | 08/01/19 | 40 mg | | | | suspension (compound) 40 mg 40 | | 17 6:27 | | | | | mg, oral, TWICE DAILY, First dose | | AM PST | | | | | (after last modification) on Thu | | | | | | | 07/30/16 at 2100, Until | | | | | | | Discontinued | | | | | | + +-------+ +-------+---+---+ +-------+ +-------+---+---+ | Given | 07/31/19 | 40 mg | | | | | 17 8:31 | | | | | | PM PST | | | | +-------+ +-------+---+---+ | Given | 07/31/19 | 40 mg | | | | | 17 6:11 | | | | | | AM PST | | | | +-------+ +-------+---+---+ +---+---+ | | | +---+---+ + +-------+ +------+---+---+ | ondansetron (ZOFRAN) injection | Given | 07/22/19 | 4 mg | | | | 4 mg 4 mg, intravenous, EVERY 12 | | 17 5:23 | | | | | HOURS NEEDED, Starting Tue | | AM PST | | | | | 07/22/16 at 0429, Until Thu07/22/16 | | | | | | | at 0525, nausea/vomiting | | | | | | + +-------+ +------+---+---+ +---+---+ | | | +---+---+ + +-------+ +------+---+---+ | ondansetron (ZOFRAN) injection | Given | 07/29/19 | 4 mg | | | | 4 mg 4 mg, intravenous, EVERY 12 | | 17 1:16 | | | | | HOURS NEEDED, Starting Tue | | AM PST | | | | | 07/22/16 at 0523, Until Thu08/01/16 | | | | | | | at 2158, nausea/vomting if | | | | | | | unable to take oral ondansetron | | | | | | + +-------+ +------+---+---+ +-------+ +------+---+---+ | Given | 07/24/19 | 4 mg | | | | | 17 7:30 | | | | | | PM PST | | | | +-------+ +------+---+---+ | Given | 07/22/19 | 4 mg | | | | | 17 12:31 | | | | | | PM PST | | | | +-------+ +------+---+---+ +---+---+ | | | +---+---+ + +-------+ +------+---+---+ | ondansetron (ZOFRAN) tablet 8 | Given | 07/29/19 | 8 mg | | | | mg 8 mg, oral, EVERY 8 HOURS | | 17 9:27 | | | | | NEEDED, Starting Tu07/22/16 at | | AM PST | | | | | 0523, Until Thu08/01/16 at 2158, | | | | | | | nausea/vomiting | | | | | | + +-------+ +------+---+---+ +---+---+ | | | +---+---+ + +-------+ +-------+---+---+ | oxyCODONE (immediate release) | Given | 07/26/19 | 10 mg | | | | (ROXICODONE) tablet 5-10 mg 5-10 | | 17 6:18 | | | | | mg, oral, EVERY 6 HOURS | | PM PST | | | | | NEEDED, Starting Thu07/24/16 at | | | | | | | 0959, Until Thu07/30/16 at 1550, | | | | | | | moderate pain | | | | | | + +-------+ +-------+---+---+ +-------+ +-------+---+---+ | Given | 07/26/19 | 10 mg | | | | | 17 12:15 | | | | | | PM PST | | | | +-------+ +-------+---+---+ | Given | 07/25/19 | 5 mg | | | | | 17 8:41 | | | | | | PM PST | | | | +-------+ +-------+---+---+ + +---+ | | | + +---+ | oxyCODONE (immediate release) | | | (ROXICODONE) tablet 5-10 mg 5-10 | | | mg, feeding tube, EVERY 6 HOURS | | | NEEDED, Starting Thu07/30/16 | | | at 1550, Until Thu08/01/16 at | | | 2158, moderate pain | | + +---+ | | | + +---+ + +-------+ +------+---+---+ | oxyCODONE (immediate release) | Given | 07/22/19 | 5 mg | | | | (ROXICODONE) tablet 5-15 mg 5-15 | | 17 5:23 | | | | | mg, oral, EVERY 4 HOURS | | AM PST | | | | | NEEDED, Starting 07/22/16 at | | | | | | | 0430, Until Thu07/22/16 at 0525, | | | | | | | moderate pain | | | | | | + +-------+ +------+---+---+ +---+---+ | | | +---+---+ + + + +---+ +---+ | parenteral nutrition (adult) | Rate/Dos | 07/24/19 | | 45 mL/hr | | | at 25-45 mL/hr, intravenous, TPN | e Change | 17 12:30 | | | | | 2100, Starting 07/23/16 at | | AM PST | | | | | 2100, Until Liliana 07/24/16 at 2059 | | | | | | + + + +---+ +---+ +---------+ +---+ +---+ | New Bag | 07/23/19 | | 25 mL/hr | | | | 17 8:18 | | | | | | PM PST | | | | +---------+ +---+ +---+ +---+---+ | | | +---+---+ + + + +---+ +---+ | parenteral nutrition (adult) | Rate/Dos | 07/25/19 | | 45 mL/hr | | | at 45 mL/hr, intravenous, TPN | e Verify | 17 11:41 | | | | | 2100, Starting Liliana 07/24/16 at | | AM PST | | | | | 2100, Until Thu07/25/16 at 2058 | | | | | | + + + +---+ +---+ + + +---+ +---+ | Rate/Dose Verify | 07/25/19 | | 45 mL/hr | | | | 17 8:08 | | | | | | AM PST | | | | + + +---+ +---+ | Rate/Dose Verify | 07/25/19 | | 45 mL/hr | | | | 17 5:12 | | | | | | AM PST | | | | + + +---+ +---+ +---+---+ | | | +---+---+ + + + +---+ +---+ | parenteral nutrition (adult) | Rate/Dos | 07/26/19 | | 45 mL/hr | | | at 45 mL/hr, intravenous, TPN | e Verify | 17 5:06 | | | | | 2100, Starting 07/25/16 at | | PM PST | | | | | 2100, Until 07/26/16 at 2059 | | | | | | + + + +---+ +---+ + + +---+ +---+ | Rate/Dose Verify | 07/26/19 | | 45 mL/hr | | | | 17 12:17 | | | | | | PM PST | | | | + + +---+ +---+ | Rate/Dose Verify | 07/26/19 | | 45 mL/hr | | | | 17 9:00 | | | | | | AM PST | | | | + + +---+ +---+ +---+---+ | | | +---+---+ + + + +---+ +---+ | parenteral nutrition (adult) | Rate/Dos | 07/27/19 | | 45 mL/hr | | | at 45 mL/hr, intravenous, TPN | e Verify | 17 4:00 | | | | | 2100, Starting 07/26/16 at | | PM PST | | | | | 2100, Until 07/27/16 at 2059 | | | | | | + + + +---+ +---+ + + +---+ +---+ | Rate/Dose Verify | 07/27/19 | | 45 mL/hr | | | | 17 12:30 | | | | | | PM PST | | | | + + +---+ +---+ | Rate/Dose Verify | 07/27/19 | | 45 mL/hr | | | | 17 9:00 | | | | | | AM PST | | | | + + +---+ +---+ +---+---+ | | | +---+---+ + + + +---+ +---+ | parenteral nutrition (adult) | Rate/Dos | 07/28/19 | | 45 mL/hr | | | at 45 mL/hr, intravenous, TPN | e Verify | 17 8:00 | | | | | 2100, Starting 07/27/16 at | | PM PST | | | | | 2100, Until 07/28/16 at 2059 | | | | | | + + + +---+ +---+ + + +---+ +---+ | Rate/Dose Verify | 07/28/19 | | 45 mL/hr | | | | 17 3:17 | | | | | | PM PST | | | | + + +---+ +---+ | Rate/Dose Verify | 07/28/19 | | 45 mL/hr | | | | 17 8:49 | | | | | | AM PST | | | | + + +---+ +---+ +---+---+ | | | +---+---+ + +-------+ + +---+---+ | peg-electrolyte (PRINCELY) | Given | 07/29/19 | 2,000 mL | | | | liquid 2,000 mL 2,000 mL, | | 17 4:22 | | | | | feeding tube, EVERY 6 HOURS, 2 | | AM PST | | | | | doses, First dose on Thu07/28/16 | | | | | | | at 2200, Last dose on Thu07/29/16 | | | | | | | at 0400 | | | | | | + +-------+ + +---+---+ +-------+ + +---+---+ | Given | 07/28/19 | 2,000 mL | | | | | 17 11:33 | | | | | | PM PST | | | | +-------+ + +---+---+ +---+---+ | | | +---+---+ + +-------+ + +---+---+ | peg-electrolyte (GOLYTELY) | Given | 07/29/19 | 2,000 mL | | | | liquid 4,000 mL 4,000 mL, oral, | | 17 9:21 | | | | | ONCE, 1 dose, 07/29/16 at 0845 | | AM PST | | | | + +-------+ + +---+---+ + +---+ | | | + +---+ | phenol (CHLORASEPTIC) 1.4 % | | | spray 1-3 spray 1-3 spray, oral, | | | EVERY 2 HOURS NEEDED, | | | Starting 07/22/16 at 1309, | | | Until 08/01/16 at 2158, sore | | | throat | | + +---+ | | | + +---+ + +-------+ +------+---+---+ | polyethylene glycol (MIRALAX) | Given | 07/30/19 | 17 g | | | | powder 17 g 17 g, oral, DAILY, | | 17 8:21 | | | | | First dose on Thu07/22/16 at 0900, | | AM PST | | | | | Until Discontinued | | | | | | + +-------+ +------+---+---+ +-------+ +------+---+---+ | Given | 07/24/19 | 17 g | | | | | 17 9:37 | | | | | | AM PST | | | | +-------+ +------+---+---+ +---+---+ | | | +---+---+ + +---------+ +--------+ +---+ | potassium chloride IV (central | New Bag | 07/24/19 | 40 mEq | 45 mL/hr | | | line) 40 mEq 40 mEq, | | 17 9:55 | | | | | intravenous, ONCE, 1 dose, Liliana | | PM PST | | | | | 07/24/16 at 2130 | | | | | | + +---------+ +--------+ +---+ +---+---+ | | | +---+---+ + +---------+ +--------+---+---+ | potassium chloride IV | New Bag | 07/23/19 | 40 mEq | | | | (peripheral line) 40 mEq 40 mEq, | | 17 1:29 | | | | | intravenous, ONCE, 1 dose, Wed | | PM PST | | | | | 07/23/16 at 1330 | | | | | | + +---------+ +--------+---+---+ +---+---+ | | | +---+---+ + +---------+ +---------+---+---+ | potassium phosphate IV 30 mmol | New Bag | 07/22/19 | 30 mmol | | | | 30 mmol, intravenous, ONCE, 1 | | 17 11:11 | | | | | dose, 07/22/16 at 1100 | | AM PST | | | | + +---------+ +---------+---+---+ +---+---+ | | | +---+---+ + +---------+ +---------+---+---+ | potassium phosphate IV 30 mmol | New Bag | 07/24/19 | 30 mmol | | | | 30 mmol, intravenous, ONCE, | | 17 3:28 | | | | | dose, Liliana 07/24/16 at 0300 | | AM PST | | | | + +---------+ +---------+---+---+ + +---+ | | | + +---+ | prochlorperazine (COMPAZINE) | | | tablet 5 mg 5 mg, oral, EVERY 6 | | | HOURS NEEDED, Starting Tue | | | 07/22/16 at 0952, Until 08/01/16 | | | at 2158, nausea/vomiting, if not | | | responding to zofran | | + +---+ | | | + +---+ + +-------+ +---------+---+---+ | senna-docusate (SENOKOT S) | Given | 07/31/19 | 2 | | | | 8.6-50 mg 2 tablet 2 tablet, | | 17 8:45 | tablets | | | | oral, TWICE DAILY, First dose on | | AM PST | | | | | 07/22/16 at 0900, Until | | | | | | | Discontinued | | | | | | + +-------+ +---------+---+---+ +-------+ +---------+---+---+ | Given | 07/30/19 | 2 | | | | | 17 8:22 | tablets | | | | | AM PST | | | | +-------+ +---------+---+---+ | Given | 07/27/19 | 2 | | | | | 17 8:36 | tablets | | | | | AM PST | | | | +-------+ +---------+---+---+ +---+---+ | | | +---+---+ documented in this encounter
--- OUTSIDE RECORDS SUMMARY | ~2019-12-15 | XMS | Encounter Summary ---
Demographics + + + | Address | [address] | | | [place] [address] | + + + | Home Phone [...] + + | Author | [facility] [employer] [facility] | + + + | Organization | [facility] [employer] [facility] | + + + | Address | Unknown | + + + | Phone | Unavailable | + + + Support + + + + + | Name | Relationship | Address | Phone | + + + + + | Yennifer Batista | ECON | [address] | | | | | [place] | | | | | [address] | | + + + + + Care Team Providers + +------+ + | Care Manager Application Development Name | Role | Phone | + [...] Refill Request | | 2018 | | [place] [facility] [address] | [address] | | | | | [address] | [place], [place] | | | | | Mailcode: OC8D | [address] | | | | | [facility] | [phone] | | | | | and Healing, | | | | | | [address] | | | | | | [facility] [place] | | | | | | [address] | | | | | | [phone] | | | +--------+--------+ + + + [...]
--- OUTSIDE RECORDS SUMMARY | ~2019-12-15 | XMS | Encounter Summary ---
Demographics + + + | Address | [address] | | | [place] [address] | + + + | Home Phone | | + + + | Preferred Language | Unknown | + + + | Marital Status | Single | + + + | Rastafarian Affiliation | ZEFERINO | + + + | Race | or | + + + | Ethnic Group | Not or | + + + Author + + + | Author | [facility] [employer] [facility] | + + + | Organization | [facility] [employer] [facility] | + + + | Address | Unknown | + + + | Phone | Unavailable | + + + Support + + + + + | Name | Relationship | Address | Phone | + + + + + | Yennifer Batista | ECON | [address] | | | | | [place] | | | | | [address] | | + + + + + Care Team Providers + +------+ + | Care Vamp Liner Name | Role | Phone | + +------+ + | Ed Landis MD | PCP | | + +------+ + Encounter Details +--------+ + + + + | Date | Type | Department | Care Team | Description | +--------+ + + + + | 07/01/ | Inside | [facility] | Damaris Woods MD | | | 2018 | Referral | [facility] [address] | [address] | | | | Order | John Arte[place]ette Mailcode: | Shania Marinelli [place], | | | | | OC[address] [facility] | [place] [address] | | | | | Health and Healing, | [phone] | | | | | [address] | | | | | | [place], [place] | | | | | | [address] | | | | | | [phone] | | | +--------+ + + + [...] as of this encounter Plan of Treatment + + +--------+ + + | Name [...]
--- OUTSIDE RECORDS SUMMARY | ~2019-12-15 | XMS | Encounter Summary ---
Demographics + + + | Address | [address] | | | [place] [address] | + + + | Home Phone [...] + + + | Author | [facility] [employer] [facility] | + + + | Organization | [facility] [employer] [facility] | + + + | Address | Unknown | + + + | Phone | Unavailable | + + + Support + + + + + | Name | Relationship | Address | Phone | + + + + + | Yennifer Batista | ECON | [address] | | | | | [place] | | | | | [address] | | + + + + + Care Team Providers + +------+ + | Care Associate Software Developer Name | Role | Phone | + +------+ + | Ed Landis MD PCP | | + +------+ + Encounter Details +--------+ + + + + | Date | Type | Department | Care Team | Description | +--------+ + + + + | 08/24/ | Telephone | [facility] at [facility] | Theresa Beyer, | | | 2015 | | [address] | [address] [place] [address] | | | | | Mailcode: CH10U | [place] [address] | | | | | [facility] | [phone] | | | | | and [place], | | | | | | [facility] | | | | | | [place], [place] | | | | | | [address] | | | | | | [phone] | | | +--------+ + + + [...]
--- OUTSIDE RECORDS SUMMARY | ~2019-12-15 | XMS | Encounter Summary ---
Demographics + + + | Address | [address] | | | [place] [address] | + + + | Home Phone [...] Author + + + | Author | [facility] [employer] [facility] | + + + | Organization | [facility] [employer] [facility] | + + + | Address | Unknown | + + + | Phone | Unavailable | + + + Support + + + + + | Name | Relationship | Address | Phone | + + + + + | Yennifer Batista | ECON | [address] | | | | | [place] | | | | | [address] | | + + + + + Care Team Providers + +------+ + | Care Curator Of Manuscripts Name | Role | Phone | + +------+ + | Yasmeen Landis MD | PCP | | + +------+ + Reason for Referral Consultation (Urgent) +--------+--------+ + + + + | Status | Reason | Specialty | Diagnoses / | Referred By | Referred To | | | | | Procedures | Contact | Contact | +--------+--------+ + + + + | Closed | | Gastroenterol | Diagnoses | Matro, | Gas Endo | | | | ogy | Stricture | MD Ricardo | [facility] [address] | | | | | of esophagus | [address] | [address] | | | | | Procedures | Ave | Mailcode: | | | | | CONSULT TO | [place], [place] | [facility] | | | | | GI | [address] | for Health | | | | | PROCEDURE | Phone: | and Healing, | | | | | UNIT: EGD | [phone] | [address] | | | | | IN UPPER GI | Fax: | [place], [place] | | | | | ENDOSCOPY,BI | [phone] | [address] | | | | | OPSY | | Phone: | | | | | | | [phone] | | | | | | | Fax: | | | | | | | [phone] | +--------+--------+ + + + + Reason for Visit AUTH/CERT +--------+--------+ + [...] | +--------+ + + + + | 09/17/ | Hospital | [facility] | Ricardo Mason MD | | | 2017 | Encounter | [address] | [address] | | | | | Ave Mailcode: [facility] | [place], [place] | | | | | [facility] | [address] | | | | | Health and Healing, | [phone] | | | | | [place] [address] | | | | | | [place], [place] | | | | | | [address] | | | | | | [phone] | | | +--------+ + + + [...] Pressure | 112/79 | 09/17/2016 5:46 PM | | | | | PST | | + + + + + | Pulse | 98 | 09/17/2016 4:50 PM | | | | | PST | | + + + + + | Temperature | 36.7 C (98.1 F) | 09/17/2016 2:15 PM | | | | | PST | | + + + + + | Respiratory Rate | 14 | 09/17/2016 5:46 PM | | | | | PST | | + + + + + | Oxygen Saturation | 100% | 09/17/2016 5:46 PM | | | | | PST | | + + + + + | Inhaled Oxygen | - | - | | | Concentration | | | | + + + + + | Weight | - | - | | + + + + + | Height | - | - | | + + + + + | Body Mass Index | - | - | | + + + + + documented in this encounter Discharge Instructions Instructions Cherry Tipton RN - 09/17/2016[place] [facility] Instructions after EGD (Upper Endo scopy) You may resume your normal diet and [...] department toll free ext. [phone] or After business hours or on weekends and holiday Hospital Commutator Inspector toll free [phone] ext. [phone] and have the GI doctor quality control lead paged. The provider who performed your procedure is: Dr. Mason Results of your EGD: Dilation performed, advance diet as tolerated, recommend a soft diet t rachele and tomorrow Follow up Appointments with: Referring provider as needed Your primary care provider or referring provider will receive copies of the procedure repor t and all the pathology reports with recommendations for treatment if needed. If Noted above that biopsies were taken or polyps removed we will receive the results in ap proximately 1 week. If you have not heard from us after 2 weeks please call for your results . AttachmentsThe following attachments cannot be sent through Care Everywhere.BLAND SOFT DIET (YORUBA)documented in this encounter Medications at Time of [...] + documented as of this encounter Progress Ricardo Andujar MD - 09/17/2016 4:27 PM PST PRE PROCEDURE NOTE: MR# [id number] Subjective: Franck Batista is a 56 y.o. male presents today for upper endoscopy. Patient History Reviewed Medications reviewed Pt NPO for 7 hrs. Allergies: Allergies as of 09/10/2016 - Fully Reviewed 08/11/2016 Allergen Reaction Noted Naproxen Hives 03/21/2014 ROS: All others negative. Objective: Vital Signs: BP 97/69 | Pulse 86 | Temp 36.7 C (98.1 F) | RR 14 | SpO2 100% Neuro: Patient oriented X3. Mallampati Score: 2 Neck: No significant findings by visual inspection Respiratory: Breathing comfortably Cardiovascular: Regular rate and rhythm Abdomen: + bowel sounds, soft, nontender, nondistended Impression History reviewed, and patient deemed appropriate for planned procedure. ASA Class: 2 Plan Proceed with upper endoscopy. PARQ held and all questions addressed. Consent obtained. See procedure note 09/17/2016 documented in this enc ounter Plan of Treatment Not on filedocumented as of this encounter Procedures + +--------+ + + + | Procedure Name | Priori | Date/Time | Associated Diagnosis | Comments | | | ty | | | | + +--------+ + + + | EGD | Routin | 09/17/2016 | Stricture of | Results for this | | | e | 4:08 PM | esophagus | procedure are in the | | | | PST | | results section. | + +--------+ + + + documented in this encounter Results EGD (09/17/2016 4:08 PM PST) + + | Specimen | + + | | + + + +------- -------+ | Narrative | Perfor med At | + +------- -------+ | MRN: | [facility] | | [id number] Date: 09/17/2016Patient Name: Order #: [id number] | ENDOSC OPY | | of : 1960CSN: [id number]: [facility] 2Procedure: | | | Upper GI endoscopyIndications: Dysphagia, For therapy of | | | esophageal strictureProviders: RICARDO MASON MD | | | (Doctor), CHERRY TIPTON RNReferring MD: KATIE Olsen | | | MD SERJIO, YASMEEN LANDISRequesting Provider: Medicines: | | | Midazolam 7 [...] The Olympus [id number]-[id number] Gastroscope | | | #[id number] was introduced through the | | | [...] | upper endoscopy 2-4 weeks for retreatment.RICARDO MASON MD09/17/2016 | | | 5:06:39 PMNumber of Addenda: 0Note Initiated On: 09/17/2016 4:08 PM | | | - Esophageal stenosis. Dilated. | | | - 2 cm hiatal hernia. | | | - Esophagitis, possibly from previous dobhoff tube. | | | - No specimens collected. | | |Recommendation: - Repeat upper endoscopy 2-4 weeks for retreatment. | | |RICARDO MASON MD | | |09/17/2016 5:06:39 PM | [...] | + + | Stricture of esophagus Stricture and stenosis of esophagus | + + documented in this encounter Administered Medications + +--------+ +--------+------+------+ | Medication Order | MAR | Action | Dose | Rate | Site | | | Action | Date | | | | + +--------+ +--------+------+------+ | fentaNYL (SUBLIMAZE) injection | Given | 09/18/19 | 50 mcg | | | | intravenous, INTRAPROCEDURE PRN, | | 17 4:47 | | | | | Starting Thu09/17/16 at 1633, | | PM PST | | | | | Until Thu09/17/16 at 1647 | | | | | | + +--------+ +--------+------+------+ +-------+ +--------+---+---+ | Given | 09/18/19 | 25 mcg | | | | | 17 4:43 | | | | | | PM PST | | | | +-------+ +--------+---+---+ | Given | 09/18/19 | 25 mcg | | | | | 17 4:40 | | | | | | PM PST | | | | +-------+ +--------+---+---+ +---+---+ | | | +---+---+ + +-------+ +------+---+---+ | lidocaine viscous (XYLOCAINE | Given | 09/18/19 | 8 mL | | | | VISCOUS) 2 % mucosal solution | | 17 4:30 | | | | | Mouth/Throat, INTRAPROCEDURE PRN, | | PM PST | | | | | Starting Thu09/17/16 at 1630, | | | | | | | Until Thu09/17/16 at 1630 | | | | | | + +-------+ +------+---+---+ +---+---+ | | | +---+---+ + +-------+ +------+---+---+ | midazolam (PF) (VERSED) | Given | 09/18/19 | 1 mg | | | | injection INTRAPROCEDURE PRN, | | 17 4:49 | | | | | Starting Thu09/17/16 at 1633, | | PM PST | | | | | Until Thu09/17/16 at 1649 | | | | | | + +-------+ +------+---+---+ +-------+ +------+---+---+ | Given | 09/18/19 | 1 mg | | | | | 17 4:43 | | | | | | PM PST | | | | +-------+ +------+---+---+ | Given | 09/18/19 | 1 mg | | | | | 17 4:40 | | | | | | PM PST | | | | +-------+ +------+---+---+ +---+---+ | | | +---+---+ documented in this encounter"
--- OUTSIDE RECORDS SUMMARY | ~2019-12-15 | XMS | Encounter Summary ---
Demographics + + + | Address | [address] | | | [place] [address] | + + + | Home Phone [...] + | Author | [facility] [facility] | + + + | Organization | [facility] [employer] [facility] | + + + | Address | Unknown | + + + | Phone | Unavailable | + + + Support + + + + + | Name | Relationship | Address | Phone | + + + + + | Yennifer Batista | ECON | [address] | | | | | [place] | | | | | [address] | | + + + + + Care Team Providers + +------+ + | Care Ferryboat Operator Helper Name | Role | Phone | + +------+ + | Ed Lanids MD | PCP | | + +------+ [...] Anesthesia | [address] Intra Op [id number] | Justin Santamaria MD | | | 2015 | Event | [address] | [address] | | | | | [facility] | Shania Marinelli [place], | | | | | Hospital Admitting | [place] [address] | | | | | Desk Located on the | [phone] | | | | | 9th floor | | | | | | [facility] [place] | [address], | | | | | [address] | [address] | | | | | | [address] | | | | | | [place], [place] | | | | | | [address] | | | | | | [phone] | | | | | | | [...] Sellers MD | Della Mc, | | Yeuhda | | | JARROD | | al [...] | | | | | Until Liliana 1/29/15 at 1318 | | | | | [...] 1:25 | | | | | Starting Liliana 08/17/14 at 1012, | anesthes | PM PST | | | | | Until Liliana 08/17/14 at 1318 | iology | | [...]
--- OUTSIDE RECORDS SUMMARY | ~2019-12-15 | XMS | Encounter Summary ---
Demographics + + + | Address | [address] | | | [place] [address] | + + + | Home Phone [...] + + + | Author | [facility] [employer] [facility] | + + + | Organization | [facility] [employer] [facility] | + + + | Address | Unknown | + + + | Phone | Unavailable | + + + Support + + + + + | Name | Relationship | Address | Phone | + + + + + | Yennifer Batista | ECON | [address] | | | | | [place] | | | | | [address] | | + + + + + Care Team Providers + +------+ + | Care Ecommerce Manager Name | Role | Phone | [...] [address] | | | | | [facility] | Shania Marin[address] [place], | | | | | Hospital Admitting | [place] [address] | | | | | Desk Located on the | [phone] | | | | | 9th floor | | | | | | [facility] [place] | [address] [place], | | | | | [address] | [address] | | | | | | [address] | | | | | | [place], [place] | | | | | | [address] | | | | | | [phone] | | | | | | | [...]
--- OUTSIDE RECORDS SUMMARY | ~2019-12-15 | XMS | Encounter Summary ---
Demographics + + + | Address | [address] | | | [place] [address] | + + + | Home Phone | | + + + | Preferred Language | Unknown | + + + | Marital Status | Single | + + + | Islam Affiliation | ZEFERINO | + + + | Race | or | + + + | Ethnic Group | Not or | + + + Author + + + | Author | [facility] | + + + | Organization | [facility] | + + + | Address | Unknown | + + + | Phone | Unavailable | + + + Support + + + + + | Name | Relationship | Address | Phone | + + + + + | Yennifer Batista | ECON | [address] | | | | | [place] | | | | | [phone] | | + + + + + Care Team Providers + +------+ + | Care Industrial Relations Counselor Name | Role | Phone | + +------+ + | Sujatha Sullivan | PCP | | | FIRE SUPPORT MAN | | | + +------+ + Encounter Details +--------+ + + + + | Date | Type | Department | Care Team | Description | +--------+ + + + + | 06/09/ | Abstract | Cardiology | Unknown . | | | 2013 | | [facility] at [facility] | | | | | | [address] | | | | | | Mailcode: CH9A | | | | | | [facility] | | | | | | and Healing, | | | | | | [address] | | | | | | [place], [place] | | | | | | [address] | | | | | | [phone] | | | +--------+ + + + [...]
--- OUTSIDE RECORDS SUMMARY | ~2019-12-15 | XMS | Encounter Summary ---
Demographics + + + | Address | [address] | | | [place] [address] | + + + | Home Phone | | + + + | Preferred Language | Unknown | + + + | Marital Status | Single | + + + | Scientology Affiliation | ZEFERINO | + + + | Race | or | + + + | Ethnic Group | Not or | + + + Author + + + | Author | [facility] | + + + | Organization | [facility] | + + + | Address | Unknown | + + + | Phone | Unavailable | + + + Support + + + + + | Name | Relationship | Address | Phone | + + + + + | Yennifer Segovia | ECON | [id number] | | | | | [place] | | | | | [phone] | | + + + + + Care Team Providers + +------+ + | Care Electric Powerline Examiner Name | Role | Phone | + [...] + + + + | 08/17/ | Hospital | [facility] [address] | Theresa Beyer, | | | 2015 - | Encounter | [address] | [address] [place] [address] | | | | | 12/UHS31 [facility] | [place] [address] | | | 08/22/ | | [facility], | [phone] | | | 2014 | | [place] [address] | | | | | | [phone] | | | +--------+ + + + [...] can cause constipation, so you may take vazy-egi-qxmtvwe stool softeners (Senok ot-S, Miralax, Colace) following [...] Physician: Theresa Beyer MD Patient: COREEN SEGOVIA [id number] 24H events/Subjective: МАРИНА overnight. Emesis x1 yesterday [...] is Theresa Beyer MD. PATRICIA PATTERSON MD [facility] [address] [facility] 12/s31 [place] [address] Zay Sherman MD - 08/20/2014 4:54 AM PST Urology Progress Note Hospital Day: 3 Author: ZAY HERNANDEZ MD Attending Physician: Theresa Beyer MD Patient: COREEN SEGOVIA [id number] 24H events/Subjective: No acute events overnight. Pain [...] Resident - R5 Department of Urology Pager #[phone] Zay Sherman MD - 08/19/2014 7:49 AM PST Urology Progress Note Hospital Day: 2 Author: PATRICIA PATTERSON MD Attending Physician: Theresa Beyer MD Patient: COREEN SEGOVIA [id number] 24H events/Subjective: МАРИНА overnight. Pain is adequately [...] Caitlin Falk NP Adult Pain Service Pager [phone] Team Pager [phone] Caitlin Jiménez NP - 08/18/2014 8:02 AM [...] Mr. Segovia's pain include most activities. Mr. Segovia is satisfied with current level of pain. [...] and summary of old medical records (source: [facility]), as summarized in the body of the note. CAITLIN FALK NP BILLING INFORMATION [facility] DEPARTMENT: [phone] Place of Service:- Inpatient Date of Service: 08/18/2014 [facility]: [id number] Suggested Modifier: None Suggested CPT: 59588 - Daily mgmt epidural/subarachnoid drug administration Prolonged service: n/a Counseling and Coordination: n/a Patricia Chappell MD - 08/18/2014 6:46 AM PST Urology Progress Note Hospital Day: 1 Author: PATRICIA PATTERSON MD Attending Physician: Theresa Beyer MD Patient: COREEN ALDANA [facility] [id number] 24H events/Subjective: Tachycardic overnight asymptomatic otherwise >> [...] is Theresa Beyer MD. PATRICIA PATTERSON MD [facility] [address] 12c/[address]s31 [place] [address] Zay Sherman MD - 08/17/2014 10:44 AM PST [facility] PRE-OPERATIVE HISTORY & PHYSICAL EXAM CHIEF [...] History Procedure Laterality Date Jaw surgery 1986 [facility] Cyst removal-leg Right 1993 Lower leg [...] of motion DIAGNOSTIC STUDIES: reviewed ASSESSMENT: Coreen Segovia is a 53 y.o. male with a large left adrenal mass who presents for left adren alectomy. No contraindications. PLAN: Proceed with surgery PARQ reviewed Ancef [place] to [place] The attending of record for this patient is Dr. Beyer. Zay Hernandez MD Resident - R5 Department of Urology Pager #[phone] documented in this encounter Plan of Treatment [...] | + +--------+ + + + | HEMOGLOBIN-ADONIS POC | Routin | 08/17/2014 | Adrenal [...] | + + + + + | [facility] | [address] | [place] [address] | | | SERVICES, CORE | ELLEN [...] | + + + + + | [facility] | [address] | [place] [address] | | | SERVICES, CORE | PARK [...] [facility] | [address] | [place] [address] | | | SERVICES, CORE | PARK [...] | | | LABORATORY | | | [place] | | | SERVICES, | | | [...] the MDRD equation recommended by the | [facility] | | National Kidney Disease Education Program. Estimated GFR | LABORATORY | | Interpretive Information: <60 mL/min/1.73 sq m | [place] | | Chronic Kidney Disease <15 mL/min/1.73 [...] | + + + + + | [facility] | [address] | [place] [address] | | | [place] | [address] | | | + [...] | + + + + + | [facility] | [address] | [place] [address] | | | SERVICES, CORE | ELLEN [...] [facility] | [address] | [place] [address] | | | SERVICES, CORE | PARK [...] [facility] | [address] | [place] [address] | | | SERVICES, CORE | PARK [...] | | | LABORATORY | | | [place] | | | SERVICES, | | | [...] the MDRD equation recommended by the | [facility] | | National Kidney Disease Education Program. Estimated GFR | LABORATORY | | Interpretive Information: <60 mL/min/1.73 sq m | [place] | | Chronic Kidney Disease <15 mL/min/1.73 [...] | + + + + + | [facility] | [address] | [place] [address] | | | SERVICES, CORE | PARK [...] [facility] | [address] | [place] [address] | | | SERVICES, CORE | PARK [...] | + + + + + | [facility] | [address] | [place] [address] | | | SERVICES, CORE | [address] | | | + + + + + MAGNESIUM, PLASMA (08/20/2014 6:42 AM PST) + +---------+ + + + | Component | Value | Ref Range | Performed | Pathologist | | | | | At | Signature | + +---------+ + + + | MAGNESIUM,P | 1.6 (L) | 1.8 - 2.5 mg/dL | [facility] | | | LASMA | | [...] | + + + + + | [facility] | [address] | [place] [address] | | | SERVICES, CORE | PARK [...] | | | LABORATORY | | | [place] | | | SERVICES, | | | [...] the MDRD equation recommended by the | [facility] | | National Kidney Disease Education [...] [facility] | [address] | [place] [address] | | | SERVICES, CORE | PARK [...] [facility] | [address] | [place] [address] | | | KAV[place], CAM | PARK [...] | | | LABORATORY | | | [place] | | | SERVICES, | | | [...] | + + + + + | [facility] | [address] | [place] [address] | | | SERVICES, CORE | ELLEN [...] [facility] | [address] | [place] [address] | | | SERVICES, CORE | PARK [...] [facility] | [address] | [place] [address] | | | SERVICES, CORE | PARK [...] [facility] | [address] | [place] [address] | | | SERVICES, CORE | PARK [...] + + | [facility] | [address] | [place] [address] | | | SERVICES, CORE | PARK [...] | + + + + + | [facility] | [address] | [place] [address] | | | SERVICES, CORE | ELLEN [...] | | | LABORATORY | | | [place] | | | SERVICES, | | | [...] [facility] | [address] | [place] [address] | | | KAVITA, CAM | PARK [...] | + + + + + | [facility] | [address] | [place] [address] | | | SERVICES, CORE | [address] | | | + + + + [...] [facility] | [address] | [place] [address] | | | SERVICES, CORE | PARK [...] | | | LABORATORY | | | [place] | | | SERVICES, | | | [...] | + + + + + | [facility] | [address] | [place] [address] | | | KAVITA, CAM | ELLEN [...] [facility] | [address] | [place] [address] | | | SERVICES, CAM | ELLEN [...] + | [facility] | [address] | [place], [place] | | | CARDIOLOGY | [address] | [address] | | + + + + + LACTATE (ART) POC (08/17/2014 11:56 AM PST) + +-------+ [...] [facility] | [address] | [place], [place] | | | ARUN [place] OF CARE | [address] | [address] | | | TESTS | | | [...] [facility] | [address] | [place], [place] | | | ARUN [place] OF RICKIE | [address] | [address] | | | TESTS | | | [...] + + + + | [facility] | [address] | [place], [place] | | | AR[facility] OF CARE | [address] | [address] | | | TESTS | | | [...] [facility] | [address] | [place], [place] | | | [facility] OF [facility] | [facility] | [address] | | | TESTS | | | [...] | | | POC | | | [place] | | | | | | ARUN [...] + + + + | [facility] | [address] | [place], [place] | | | ARUN [place] OF [place] | [address] | [address] | | | TESTS | | | [...] + | [facility] | [address] | [place], [place] | | | [facility] OF CARE | [facility] | [address] | | | TESTS | | | [...] [facility] | | | | | | SREE, POINT | | | | | | OF CARE | | | | | | TESTS | | + + + + + + | METHEMOGLOB | 0.6 | 0.0 - 1.9 % | [facility] - | | | IN, POC | | | [facility] | | | | | | SREE, POINT | | | | | | OF CARE | | | | | | TESTS | | + + + + + + | HEMATOCRIT, | 33.9 (L) | 41.0 - 53.0 % | [facility] | | | POC | | | [facility] | | | | | | SREE, POINT | | | | | | [...] + + + + | [facility] | [address] | [place], [place] | | | SREE POINT OF CARE | [address] | [address] | | | TESTS | | | [...] | | | POC | | | HILL, POINT | | | | | | OF CARE | | | | | | TESTS | | + + + + + + | PCO2 | 41 | 32 - 43 mmHg | [facility] - | | | ARTERIAL, | | | [place] | | | POC | | | H[place], POINT | | | | | | OF CARE | | | | | | TESTS | | + + + + + + | O2 SAT | 100.3 (H) | 92.0 - 98.0 % | [facility] - | | | ARTERIAL, | | | [facility] | | | POC | | | H[place], POINT | | | | | | OF CARE | | | | | | TESTS | | + + + + + + | HCO3 | 25.6 | 21 - 28 mmol/L | [facility] - | | | ARTERIAL, | | | [facility] | | | POC | | | H[place], POINT | | | | | | OF CARE | | | | | | TESTS | | + + + + + + | BASE EXCESS | 0.8 | | [facility] - | | | [place], | | | [facility] | | | POC | | | [...] | [facility] | [address] | [place], [place] | | | ARUN [facility] OF CARE | [address] | [address] | | | TESTS | | | [...] | | | | Case seen by:Juanjo Covington, | | | | | | M.D./Pathologist | | | | | | Clinical [...] Index:A1-3, | | | | | | outside sales representative insurance adrenal | | | | | | to massA4-6, | | | | | | outside sales representative insurance | | | | | | intracapsular [...] [place] | | | | | | SonamPathologistElectroni | | | | | | john [...] | + + + + + | [facility] | [address] | [place] [address] | | | PATHOLOGY | [address] [...] | acetaminophen (TYLENOL) tablet | Given | 08/22/19 | 650 mg | | | | 650 mg 650 mg, oral, EVERY 6 | | 15 9:35 | | | | | HOURS, First dose on Thu08/18/14 | | AM PST | | | | | at 1145, Until Discontinued | | | | | | + +--------+ +--------+------+------+ +-------+ +--------+---+---+ | Given | 08/22/19 | 650 mg | | | | | 15 5:14 | | | | | | AM PST | | | | +-------+ +--------+---+---+ | Given | 08/21/19 | 650 mg | | | | | 15 8:51 | | | | | | PM PST | | | | +-------+ +--------+---+---+ +---+---+ | | | +---+---+ + +-------+ +-------+---+---+ | aluminum-magnesium | Given | 08/19/19 | 15 mL | | | | hydroxide-simethicone (MAALOX; | | 15 1:12 | | | | | MYLANTA) 200-200-20 mg/5 mL | | AM PST | | | | | suspension 15 mL 15 mL, oral, | | | | | | | FOUR TIMES DAILY NEEDED, | | | | | | | Starting Liliana 08/17/14 at 1842, | | | | | | | Until 08/22/14 at 1651, | | | | | | | dyspepsia | | | | | | + +-------+ +-------+---+---+ +---+---+ | | | +---+---+ + +-------+ +-------+---+---+ | bisacodyl (DULCOLAX) | Given | 08/20/19 | 10 mg | | | | suppository 10 mg 10 mg, rectal, | | 15 4:31 | | | | | TWICE DAILY NEEDED, Starting | | PM PST | | | | | Liliana 08/17/14 at 1842, Until Tue | | | | | | | 08/22/14 at 1651, constipation, No | | | | | | | BM in past 3 days | | | | | | + +-------+ +-------+---+---+ +---+---+ | | | +---+---+ + + + +---+ +---+ | bupivacaine (PF) 0.05 %, | Rate/Dos | 08/17/19 | | 12 mL/hr | | | SUFentanil 1 mcg/mL in NaCl 0.9 % | e Change | 15 8:10 | | | | | epidural infusion epidural, | | PM PST | | | | | CONTINUOUS, Starting Liliana 08/17/14 | | | | | | | at 1730, Until Thu08/18/14 at | | | | | | | 1501 | | | | | | + + + +---+ +---+ + + +---+ +---+ | Rate/Dose Change | 08/17/19 | | 10 mL/hr | | | | 15 6:45 | | | | | | PM PST | | | | + + +---+ +---+ | Rate/Dose Change | 08/17/19 | | 8 mL/hr | | | | 15 5:57 | | | | | | PM PST | | | | + + +---+ +---+ +---+---+ | | | +---+---+ + + + +---+ +---+ | bupivacaine 0.05 | Rate/Dos | 08/17/19 | | 14 mL/hr | | | %-HYDROmorphone 10 mcg/mL | e Change | 15 4:19 | | | | | epidural infusion epidural, | | PM PST | | | | | CONTINUOUS, Starting Liliana 08/17/14 | | | | | | | at 1145, Until Liliana 08/17/14 at | | | | | | | 1653 | | | | | | + + + +---+ +---+ + + +---+ +---+ | Bolus from Same Bag | 08/17/19 | | 5 mL/hr | | | | 15 4:09 | | | | | | PM PST | | | | + + +---+ +---+ | Rate/Dose Change | 08/17/19 | | 12 mL/hr | | | | 15 3:32 | | | | | | PM PST | | | | + + +---+ +---+ +---+---+ | | | +---+---+ + +-------+ +--------+---+---+ | buPROPion SR (WELLBUTRIN-SR, | Given | 08/22/19 | 150 mg | | | | ZYBAN) tablet 150 mg 150 mg, | | 15 9:35 | | | | | oral, TWICE DAILY, First dose on | | AM PST | | | | | Liliana 08/17/14 at 2100, Until | | | | | | | Discontinued | | | | | | + +-------+ +--------+---+---+ +-------+ +--------+---+---+ | Given | 08/21/19 | 150 mg | | | | | 15 8:51 | | | | | | PM PST | | | | +-------+ +--------+---+---+ | Given | 08/21/19 | 150 mg | | | | | 15 8:52 | | | | | | AM PST | | | | +-------+ +--------+---+---+ +---+---+ | | | +---+---+ + +-------+ + +---+---+ | calcium carbonate chewable | Given | 08/20/19 | 200 mg | | | | (TUMS) tablet 200 mg elemental | | 15 1:23 | elementa | | | | 200 mg elemental (500 mg total | | AM PST | l | | | | salt), oral, THREE TIMES DAILY | | | | | | | NEEDED, Starting Liliana 08/17/14 at | | | | | | | 1842, Until Thu08/22/14 at 1651, | | | | | | | dyspepsia | | | | | | + +-------+ + +---+---+ +-------+ + +---+---+ | Given | 08/18/19 | 200 mg | | | | | 15 5:52 | elementa | | | | | AM PST | l | | | +-------+ + +---+---+ +---+---+ | | | +---+---+ + +---------+ +-----+---+---+ | ceFAZolin IV 1 gram in dextrose | New Bag | 08/18/19 | 1 g | | | | (RTU) 1 g, intravenous, EVERY 8 | | 15 4:29 | | | | | HOURS, 3 doses, First dose on | | PM PST | | | | | Liliana 08/17/14 at 1900, Last dose on | | | | | | | 08/18/14 at 1500 | | | | | | + +---------+ +-----+---+---+ +---------+ +-----+---+---+ | New Bag | 08/18/19 | 1 g | | | | | 15 6:45 | | | | | | AM PST | | | | +---------+ +-----+---+---+ | New Bag | 08/17/19 | 1 g | | | | | 15 10:50 | | | | | | PM PST | | | | +---------+ +-----+---+---+ +---+---+ | | | +---+---+ + +---------+ +---------+---+---+ | diphenhydrAMINE (BENADRYL) | New Bag | 08/17/19 | 12.5 mg | | | | injection 12.5 mg 12.5 mg, | | 15 3:04 | | | | | intravenous, EVERY 6 HOURS | | PM PST | | | | | NEEDED, Starting Liliana 08/17/14 at | | | | | | | 1437, Until Liliana 08/17/14 at 1831, | | | | | | | itching | | | | | | + +---------+ +---------+---+---+ + +---+ | | | + +---+ | diphenhydrAMINE (BENADRYL) | | | injection 1 dose, Starting Liliana | | | 08/17/14 at 1502, Until Liliana | | | 08/17/14 at 1504 | | + +---+ | | | + +---+ + +---------+ +--------+---+---+ | fentaNYL citrate (PF) | New Bag | 08/17/19 | 50 mcg | | | | (SUBLIMAZE) injection 50 mcg 50 | | 15 3:32 | | | | | mcg, intravenous, POSTPROCEDURE | | PM PST | | | | | PRN, 4 doses, Starting Liliana | | | | | | | 08/17/14 at 1232, Until Liliana | | | | | | | 08/17/14 at 1532, severe pain | | | | | | + +---------+ +--------+---+---+ +---------+ +--------+---+---+ | New Bag | 08/17/19 | 50 mcg | | | | | 15 3:15 | | | | | | PM PST | | | | +---------+ +--------+---+---+ | New Bag | 08/17/19 | 50 mcg | | | | | 15 2:16 | | | | | | PM PST | | | | +---------+ +--------+---+---+ + +---+ | | | + +---+ | fentaNYL citrate (PF) | | | (SUBLIMAZE) injection 1 dose, | | | Starting Liliana 08/17/14 at 1401, | | | Until Liliana 08/17/14 at 1400 | | + +---+ | | | + +---+ + +---------+ +--------+---+---+ | HYDROmorphone (DILAUDID) | New Bag | 08/17/19 | 0.3 mg | | | | injection 0.2-0.5 mg 0.2-0.5 mg, | | 15 4:51 | | | | | intravenous, POSTPROCEDURE PRN, | | PM PST | | | | | Starting Liliana 08/17/14 at 1232, | | | | | | | Until Liliana 08/17/14 at 1821, | | | | | | | moderate pain | | | | | | + +---------+ +--------+---+---+ +---------+ +--------+---+---+ | New Bag | 08/17/19 | 0.5 mg | | | | | 15 4:30 | | | | | | PM PST | | | | +---------+ +--------+---+---+ | New Bag | 08/17/19 | 0.2 mg | | | | | 15 4:07 | | | | | | PM PST | | | | +---------+ +--------+---+---+ + +---+ | | | + +---+ | HYDROmorphone (DILAUDID) | | | injection 1 dose, Starting Liliana | | | 08/17/14 at 1606, Until Liliana | | | 08/17/14 at 1607 | | + +---+ | | | + +---+ + +---------+ +-------+-------+---+ | lactated ringers IV 100 mL/hr, | New Bag | 08/19/19 | 100 | 100 | | | intravenous, CONTINUOUS, | | 15 7:28 | mL/hr | mL/hr | | | Starting Liliana 08/17/14 at 1345, | | PM PST | | | | | Until 08/20/14 at 0652 | | | | | | + +---------+ +-------+-------+---+ +---------+ +-------+-------+---+ | New Bag | 08/19/19 | 100 | 100 | | | | 15 7:12 | mL/hr | mL/hr | | | | AM PST | | | | +---------+ +-------+-------+---+ | New Bag | 08/18/19 | 100 | 100 | | | | 15 8:43 | mL/hr | mL/hr | | | | PM PST | | | | +---------+ +-------+-------+---+ +---+---+ | | | +---+---+ + + + +---------+---+---+ | lidocaine (LIDODERM) 5 %(700 | Applied | 08/18/19 | 1 patch | | | | mg/patch) patch 1-2 patch 1-2 | Patch | 15 8:37 | | | | | patch, transdermal, EVERY 24 | | PM PST | | | | | HOURS NEEDED, Starting Liliana | | | | | | | 08/17/14 at 1842, Until 08/22/14 | | | | | | | at 1651, pain | | | | | | + + + +---------+---+---+ +---+---+ | | | +---+---+ + +---------+ +-----+---+---+ | magnesium sulfate in water IV | New Bag | 08/18/19 | 2 g | | | | (RTU) 2 g 2 g, intravenous, | | 15 1:05 | | | | | ONCE, 1 dose, 08/18/14 at 1100 | | PM PST | | | | + +---------+ +-----+---+---+ +---+---+ | | | +---+---+ + +---------+ +-----+---+---+ | magnesium sulfate in water IV | New Bag | 08/19/19 | 2 g | | | | (RTU) 2 g 2 g, intravenous, | | 15 8:34 | | | | | ONCE, 1 dose, 08/19/14 at 0830 | | AM PST | | | | + +---------+ +-----+---+---+ +---+---+ | | | +---+---+ + +---------+ +-----+---+---+ | magnesium sulfate in water IV | New Bag | 08/21/19 | 2 g | | | | (RTU) 2 g 2 g, intravenous, | | 15 10:11 | | | | | ONCE, 1 dose, 08/21/14 at 1015 | | AM PST | | | | + +---------+ +-----+---+---+ +---+---+ | | | +---+---+ + +-------+ +-------+---+---+ | metoprolol tartrate (LOPRESSOR) | Given | 08/22/19 | 25 mg | | | | tablet 25 mg 25 mg, oral, TWICE | | 15 9:35 | | | | | DAILY, First dose on [facility] 08/17/14 | | AM PST | | | | | at 2315, Until Discontinued | | | | | | + +-------+ +-------+---+---+ +-------+ +-------+---+---+ | Given | 08/21/19 | 25 mg | | | | | 15 8:51 | | | | | | PM PST | | | | +-------+ +-------+---+---+ | Given | 08/21/19 | 25 mg | | | | | 15 8:52 | | | | | | AM PST | | | | +-------+ +-------+---+---+ +---+---+ | | | +---+---+ + +---------+ +--------+---+---+ | nalBUPHine (NUBAIN) injection | New Bag | 08/18/19 | 2.5 mg | | | | 2.5 mg 2.5 mg, intravenous, | | 15 1:13 | | | | | EVERY 15 MINUTES NEEDED, | | PM PST | | | | | Starting Liliana 08/17/14 at 1652, | | | | | | | Until 08/18/14 at 1501, | | | | | | | nausea/vomiting, itching | | | | | | + +---------+ +--------+---+---+ +---------+ +--------+---+---+ | New Bag | 08/18/19 | 2.5 mg | | | | | 15 9:54 | | | | | | AM PST | | | | +---------+ +--------+---+---+ | New Bag | 08/18/19 | 2.5 mg | | | | | 15 6:52 | | | | | | AM PST | | | | +---------+ +--------+---+---+ +---+---+ | | | +---+---+ + +-------+ +-------+---+---+ | omeprazole (PRILOSEC) capsule | Given | 08/22/19 | 20 mg | | | | 20 mg 20 mg, oral, DAILY, First | | 15 9:35 | | | | | dose on Liliana 08/17/14 at 1845, | | AM PST | | | | | Until Discontinued | | | | | | + +-------+ +-------+---+---+ +-------+ +-------+---+---+ | Given | 08/21/19 | 20 mg | | | | | 15 8:52 | | | | | | AM PST | | | | +-------+ +-------+---+---+ | Given | 08/20/19 | 20 mg | | | | | 15 9:23 | | | | | | AM PST | | | | +-------+ +-------+---+---+ +---+---+ | | | +---+---+ + +-------+ +-------+---+---+ | oxyCODONE (immediate release) | Given | 08/18/19 | 15 mg | | | | (ROXICODONE) tablet 5-15 mg 5-15 | | 15 4:29 | | | | | mg, oral, EVERY 3 HOURS | | PM PST | | | | | NEEDED, Starting Thu08/18/14 at | | | | | | | 0956, Until Thu08/18/14 at 1907, | | | | | | | severe pain | | | | | | + +-------+ +-------+---+---+ +-------+ +-------+---+---+ | Given | 08/18/19 | 15 mg | | | | | 15 1:08 | | | | | | PM PST | | | | +-------+ +-------+---+---+ +---+---+ | | | +---+---+ + +-------+ +-------+---+---+ | oxyCODONE (immediate release) | Given | 08/22/19 | 20 mg | | | | (ROXICODONE) tablet 5-25 mg 5-25 | | 15 9:57 | | | | | mg, oral, EVERY 3 HOURS | | AM PST | | | | | NEEDED, Starting Thu08/18/14 at | | | | | | | 1916, Until Thu08/22/14 at 1651, | | | | | | | severe pain | | | | | | + +-------+ +-------+---+---+ +-------+ +-------+---+---+ | Given | 08/22/19 | 20 mg | | | | | 15 5:14 | | | | | | AM PST | | | | +-------+ +-------+---+---+ | Given | 08/22/19 | 20 mg | | | | | 15 1:01 | | | | | | AM PST | | | | +-------+ +-------+---+---+ +---+---+ | | | +---+---+ + +-------+ +------+---+---+ | polyethylene glycol (MIRALAX) | Given | 08/21/19 | 17 g | | | | powder 17 g 17 g, oral, DAILY | | 15 8:52 | | | | | NEEDED, Starting Thu08/17/14 at | | AM PST | | | | | 1842, Until Thu08/22/14 at 1651, | | | | | | | constipation, No BM in past 3 | | | | | | | days | | | | | | + +-------+ +------+---+---+ +---+---+ | | | +---+---+ + +---------+ +--------+---+---+ | potassium chloride IV | New Bag | 08/18/19 | 20 mEq | | | | (peripheral line) 20 mEq 20 mEq, | | 15 11:04 | | | | | intravenous, ONCE, 1 dose, Fri | | AM PST | | | | | 08/18/14 at 1100 | | | | | | + +---------+ +--------+---+---+ +---+---+ | | | +---+---+ + +---------+ +--------+---+---+ | potassium chloride IV | New Bag | 08/19/19 | 20 mEq | | | | (peripheral line) 20 mEq 20 mEq, | | 15 10:33 | | | | | intravenous, ONCE, 1 dose, Sat | | AM PST | | | | | 08/19/14 at 0930 | | | | | | + +---------+ +--------+---+---+ +---+---+ | | | +---+---+ + +-------+ + +---+---+ | senna-docusate (SENOKOT S) | Given | 08/22/19 | 1 tablet | | | | 8.6-50 mg 1 tablet 1 tablet, | | 15 9:35 | | | | | oral, TWICE DAILY, First dose on | | AM PST | | | | | Liliana 08/17/14 at 2100, Until | | | | | | | Discontinued | | | | | | + +-------+ + +---+---+ +-------+ + +---+---+ | Given | 08/21/19 | 1 tablet | | | | | 15 8:51 | | | | | | PM PST | | | | +-------+ + +---+---+ | Given | 08/21/19 | 1 tablet | | | | | 15 8:52 | | | | | | AM PST | | | | +-------+ + +---+---+ +---+---+ | | | +---+---+ documented in this encounter
--- OUTSIDE RECORDS SUMMARY | ~2019-12-15 | XMS | Encounter Summary ---
Demographics + + + | Address | [address] | | | [place] [address] | + + + | Home Phone | | + + + | Preferred Language | Unknown | + + + | Marital Status | Single | + + + | Lutheran Affiliation | ZEFERINO | + + + | Race | or | + + + | Ethnic Group | Not or | + + + Author + + + | Author | [facility] | + + + | Organization | [facility] | + + + | Address | Unknown | + + + | Phone | Unavailable | + + + Support + + + + + | Name | Relationship | Address | Phone | + + + + + | Yennifer Batista | ECON | [address] | | | | | [place] | | | | | [address] | | + + + + + Care Team Providers + +------+ + | Care Dry Box Operator Name | Role | Phone | + +------+ + | Ed Landis MD | PCP | | + +------+ + Reason for Visit + + + | Reason | Comments | + + + | Pre-operative | OPEN ADRENALECTOMY on 08/17/2014 by Theresa Beyer MD at [facility] 6A | | evaluation | | + + + Encounter Details +--------+---------+ + + + | Date | Type | Department | Care Team | Description | +--------+---------+ + + + | 08/04/ | Office | Preoperative | Basilia Almeida | Preop examination | | 2015 | Visit | Medicine Clinic at | R, HUMAN SERVICES INSTRUCTOR [address] [facility] [address] | (Primary Dx); GERD | | | | [facility] 4th Floor [address] | (gastroesophageal | | | | [address] | [place], [place] | reflux disease); | | | | Mailcode: [facility] | [address] | Depression; | | | | [facility] | [phone] | Irregular heart | | | | and Healing, | | beat; Lower back | | | | Building 1,4th Floor | | pain; Adrenal mass | | | | [place], [place] | | ([facility]) | | | | [address] | | | | | | [phone] | | | +--------+---------+ + + + [...] after surgery. Surgery Check in Locations Admitting [facility], ninth floor lob Surgery Check in Time: [...] it is after office hours, call the [facility] grapple skidder operator at [phone] and ask them to page him or [...] santoyo for above procedure. Last seen in [facility] on 03/21/2014 for pre-op evaluation for this [...] Surgical History Procedure Date Jaw surgery 1986 [facility] Cyst removal-leg 1993 Lower leg Family History Problem Relation Anesthesia Neg Hx Heart Disease Father DE age 40's History Substance Use Topics Smoking [...] further investigation and manageme nt. A. Acute DE within 7 days: no B. Unstable angina/Recent DE (7- 30 days): no C. Decompensated CHF: [...] no Rate of cardiac , non fatal DE, non fatal cardiac arrest (RCRI) 0 risk [...] to this patient's care. BASILIA ALMEIDA NP [facility] PREOPERATIVE MEDICINE CLINIC AT [facility] 4TH FLOOR [address] [address] I counseled the patient regarding perioperative [...] in this encounter Plan of Treatment + + +--------+ + + | Name | Type | Priori | Associated Diagnoses | Order Schedule | | | | ty | | | + + +--------+ + + | COMMUNICATION TO [facility] | Procedures | Routin | Preop examination [...] 5.0 | 4.0 - 5.7 % | [facility], | | | A1C,POC | | | [...] | [facility] | [address] | [place] [address] | | | OF CARE TESTS | [...] + | [facility] | [address] | [place] [address] | | | SERVICES, | [address] [...] | + + + + + | [facility] | [address] | [place] [address] | | | SERVICES, | [address] [...] + | [facility] | [address] | [place] [address] | | | SERVICES, CORE | PARK [...] + | [facility] | [address] | [place] [address] | | | SERVICES, CORE | PARK [...] | | | LABORATORY | | | GABONESE | | | SERVICES, | | | [...] the MDRD equation recommended by the | [facility] | | National Kidney Disease Education Program. [...] | + + + + + | [facility] | [address] | [place] [address] | | | [address] | ELLEN [...]
--- OUTSIDE RECORDS SUMMARY | ~2019-12-15 | XMS | Encounter Summary ---
Demographics + + + | Address | [address] | | | [place] [address] | + + + | Home Phone [...] + + | Author | [facility] | + + + | Organization | [facility] | + + + | Address | Unknown | + + + | Phone | Unavailable | + + + Support + + + + + | Name | Relationship | Address | Phone | + + + + + | Yennifer Batista | ECON | [address] | | | | | [place] | | | | | [address] | | + + + + + Care Team Providers + +------+ + | Care Paint Booth Operator Name | Role | Phone | [...] Closed | | Gastroenterol | Diagnoses | Erica, | Gas Endo | | | | ogy | Esophageal | MD Travis | [facility] [address] | | | | | stricture | [address] | [address] | | | | | Procedures | [address] | Mailcode: | | | | | CONSULT TO | Rd | [facility] | | | | | GI PROCEDURE | [place], [place] | for Health | | | | | UNIT: EGD W | [address] | and Healing, | | | | | DILATION | | Building 2 | | | | | [place] UPPER GI | | [place], [place] | | | | | ENDOSCOPY,BI | | [address] | | | | | OPSY [place] UP | | Phone: | | | | | GI | | [phone] | | | | | ENDOSCOPY,BA | | Fax: | | | | | LL DIL,30MM | | [phone] | +--------+--------+ + + + + Encounter Details +--------+ + + + + | Date | Type | Department | Care Team | Description | +--------+ + + + + | 07/31/ | Telephone | Digestive Health | Travis Maldonado MD | | | 2016 | | Center at [facility] [address] | | | | | | [address] | | | | | | Mailcode: Center | | | | | | for Health and | | | | | | Healing, Building 2 | | | | | | [place], [place] | | | | | | [address] | | | | | | [phone] | | | +--------+ + + + [...]
--- OUTSIDE RECORDS SUMMARY | ~2019-12-15 | XMS | Encounter Summary ---
Demographics + + + | Address | [address] | | | [place] [address] | + + + | Home Phone [...] | Author | [facility] | + + + | Organization | [facility] [employer] [facility] | + + + | Address | Unknown | + + + | Phone | Unavailable | + + + Support + + + + + | Name | Relationship | Address | Phone | + + + + + | Yennifer Batista | ECON | [address] | | | | | [place] | | | | | [address] | | + + + + + Care Team Providers + +------+ + | Care Regulatory Submissions Specialist Name | Role | Phone | [...] Pharmacy | | | | | | [address] | | | | | | [place], [place] | | | | | | [address] | | | | | | [phone] | | | +--------+ + + + [...]
--- OUTSIDE RECORDS SUMMARY | ~2019-12-15 | XMS | Encounter Summary ---
Demographics + + + | Address | [address] | | | [place] [address] | + + + | Home Phone [...] Author + + + | Author | [facility] | + + + | Organization | [facility] | + + + | Address | Unknown | + + + | Phone | Unavailable | + + + Support + + + + + | Name | Relationship | Address | Phone | + + + + + | Yennifer Batista | ECON | [address] | | | | | [place] | | | | | [address] | | + + + + + Care Team Providers + +------+ + | Care Application Defense Manager Name | Role | Phone | [...] Description | +--------+---------+ + + + | 08/11/ | Office | Trauma Emergency | Noble Childs, | Malnutrition (HCC) | | 2017 | Visit | General Surgery at | MD [address] | (Primary Dx); Benign | | | | [facility] [address] | esophageal | | | | [address] | [place], [place] | stricture; S/P | | | | [facility], | [address] | dilatation of | | | | 2nd Floor | [phone] | esophageal | | | | [facility] [place] | | stricture; Severe | | | | [address] | | protein-calorie | | | | [phone] | | malnutrition (Sen: | | | | | | less than 60% of | | | | | | standard weight) | | | | | | (HCC); Superior | | | | | | mesenteric artery | | | | | | syndrome (HCC) | +--------+---------+ + + + Social History [...] + + + | Blood Pressure | 98/74 | 08/11/2016 3:39 PM | | | | | PST | | + + + + + | Pulse | 81 | 08/11/2016 3:39 PM | | | | | PST | | + + + + + | Temperature | - | - | | + + + + + | Respiratory Rate | - | - | | + + + + + | Oxygen Saturation | 99% | 08/11/2016 3:39 PM | | | | | PST | | + + + + + | Inhaled Oxygen | - | - | | | Concentration | | | | + + + + + | Weight | 46.5 kg (102 lb 9.6 | 08/11/2016 3:39 PM | | | | oz) | PST | | + + + + + | Height | - | - | | + + + + + | Body Mass Index | 17.61 | 07/22/2016 3:38 AM | | | | | PST | | + + + + + documented in this encounter Progress Notes Noble Childs MD - 08/11/2016 3:00 PM PSTI was present with the resident during the h istory and exam. I discussed the case with the resident and agree with the findings and earline n as documented in the resident s note. Noble Childs MD TRAUMA EMERGENCY GENERAL SURGERY AT [address] Mailcode: [address] [place] [address] [id number] Natacha Peace MD - 08/11/2016 3:00 PM PSTEMERGENCY GENERAL SURGERY FOLLOW UP Author: Natacha Nelson MD PGY-2 General Surgery Attending: Noble Childs MD ID: 55 year old man with dysphagia 2/2 esophageal stricture and subsequent profound weight loss with development of SMA syndrome HPI: Franck Batista is a 55 y.o. male with MPHx of GERD and 14 cm L adrenal myolipoma s/p o pen adrenalectomy in July of 2015 who was transferred from [facility] in Early July 2016 with 100 pound weight loss, microcytic anemia, obstructive symptoms and CT suspicious for SMA sy ndrome. He attributed the weight loss to dysphagia. He was started on TPN and workup for his weight loss was pursed. Given h/o dysphagia work up was started with upper GI and barium sw allow which showed no esophageal mass or stricture (however NG was in place limiting study) with retained contrast in stomach concerning for SMA syndrome vs delayed gastric emptying. After this swallow study a jejunal feeding tube was placed and enteral feeds started. Tumor markers were sent with CA 19-9 103 (nml <37), CEA 1.1 (nml <2.5). A pancrease protocol C T was then obtained with concern for pancreatic cancer but showed no evidence of malignancy. Given microcytic anemia patient's first colonoscopy was performed and showed only 7mm sigm oid polyp. EGD showed hiatal hernia and 10mm esophageal stricture at 35cm. Biopsies were obt ained and found to be benign. Given h/o smoking, CT chest was obtained and showed 4 sub-5mm pulmonary nodules bilaterally (likely post inflammatory, one year CT followup recommended). Esophageal stricture was found to be benign and the patient underwent endoscopic dilation an d was discharged home with tube feeds. The patient underwent PO challenge before leaving but food made him bloated. Interval history: He returns to clinic today after repeat esophageal dilation by SANTOS rios. He is now dilated to 13mm. He is a bit drowsy 2/2 recent sedation but can give some history and is accompanied by his brother. They say that the patient could not figure out h ow to run his tube feeds and a home health nurse could not make it to their home until day b efore yesterday ( 8 days after discharge). Therefore he has only had two days of tube feeds since discharge. He has been eating a little bit. He will take a few bites at meals. He has been taking some supplements and has managed to stay hydrated (reports urinating regularly). He endorses some abdominal pain and bloating after eating. He also endorses food getting st uck in his throat. However, he had to be prompted multiple times to provide an answer due to drowsiness presumably due to sedating medications after EGD. PHYSICAL EXAM: Weight is 102 pounds, up from 95 on admission on 07/22. General: cachectic, drowsy HEENT: non iteric Chest:bilaterally, unlabored with normal inspiratory effort CV: warm Gastrointestinal: scaffoid, left chevron subcostal incision well healed, diffuse mild TTP Musculoskeletal: Full AROM Skin: No lesions identified Neurologic: CN II-XII grossly intact, no sensorimotor deficits. LABS: Chemistries No results for input(s): NA, K, CL, BICARB, BUN, CR, GLU, CA, MG, PO4, AST, ALT, AP, TBILI, ALB in the last 72 hours. CBC with diff No results for input(s): WBC, HB, HCT, PLT, NEUTROPERC, LYMPHPERC, MONOPERC, BASOPERC, EOSP ERC in the last 72 hours. Invalid input(s): BANDPCT Coag No components found for: INR, PTT, PT IMAGING: None ASSESSMENT AND PLAN: Franck Batista is a 55 y.o. male who had 100 pound weight loss due to dysphagia from esophageal stricture and subsequently developed SMA syndrome. He was discharg ed from the hospital with home health tube feeds which were started with some delay. He has not yet failed conservative management and his duodenal obstruction should improve as he gai ns weight and restores the SMA fat pad. If it does not, he may need a bipass procedure like duodenojejunostomy or Strong procedure for his obstruction. 1. RTC in 2 weeks with CBC, CMP and prealbumin to ases anemia and nutrition The patient was seen and discussed with Noble Childs MD who agrees with the above asse ssment and plan. 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
--- OUTSIDE RECORDS SUMMARY | ~2019-12-15 | XMS | Encounter Summary ---
Demographics + + + | Address | [address] | | | [place] [address] | + + + | Home Phone | | + + + | Preferred Language | Unknown | + + + | Marital Status | Single | + + + | Zoroastrianism Affiliation | ZEFERINO | + + + | Race | or | + + + | Ethnic Group | Not or | + + + Author + + + | Author | [facility] | + + + | Organization | [facility] | + + + | Address | Unknown | + + + | Phone | Unavailable | + + + Support + + + + + | Name | Relationship | Address | Phone | + + + + + | Yennifer Batista | ECON | [address] | | | | | [place] | | | | | [address] | | + + + + + Care Team Providers + +------+ + | Care Bridge Maintainer Name | Role | Phone | + [...] 2010 | Only | E The | [phone] | | | | | [place] | | | | | | [address] | | | +--------+ + + + [...] + + + | CHEST 2 VIEW [id number] | Routin | 07/10/2011 | | Results for this | | | e | 1:30 PM | | procedure are in the | | | | PST | | results section. | + +--------+ + + + documented in this encounter Results CHEST 2 VIEW [id number] (07/10/2011 1:30 PM PST) + + | [...]
--- OUTSIDE RECORDS SUMMARY | ~2019-12-15 | XMS | Encounter Summary ---
Demographics + + + | Address | [address] | | | [place] [address] | + + + | Home Phone | | + + + | Preferred Language | Unknown | + + + | Marital Status | Single | + + + | Mormonism Affiliation | ZEFERINO | + + + | Race | or | + + + | Ethnic Group | Not or | + + + Author + + + | Author | [facility] | + + + | Organization | [facility] [facility] | + + + | Address | Unknown | + + + | Phone | Unavailable | + + + Support + + + + + | Name | Relationship | Address | Phone | + + + + + | Yennifer Batista | ECON | [address] | | | | | [place] | | | | | [address] | | + + + + + Care Team Providers + +------+ + | Care Abrasive Grinder Name | Role | Phone | [...] Pharmacy | | | | | | [address] | | | | | | [address] [place], [place] | | | | | | [address] | | | | | | [phone] | | | +--------+ + + + [...]
--- OUTSIDE RECORDS SUMMARY | ~2019-12-15 | XMS | Encounter Summary ---
Demographics + + + | Address | [address] | | | [place] [address] | + + + | Home Phone [...] Author + + + | Author | [facility] [employer] [facility] | + + + | Organization | [facility] [employer] [facility] | + + + | Address | Unknown | + + + | Phone | Unavailable | + + + Support + + + + + | Name | Relationship | Address | Phone | + + + + + | Yennifer Batista | ECON | [address] | | | | | [place] | | | | | [address] | | + + + + + Care Team Providers + +------+ + | Care Content Production Specialist Name | Role | Phone | + +------+ + | Ed Landis MD PCP | | + +------+ + Encounter Details +--------+ + + + + | Date | Type | Department | Care Team | Description | +--------+ + + + + | 02/17/ | Pharmacy | [facility] | | | | 2018 | Visit | & [facility] | | | | | | [address] | | | | | | Mailcode: [place] | | | | | | for Health and | | | | | | Healing, [address] | | | | | | [place], [place] | | | | | | [address] | | | | | | [phone] | | | +--------+ + + + [...]
--- OUTSIDE RECORDS SUMMARY | ~2019-12-15 | XMS | Clinical Summary ---
Demographics + + + | Address | [address] | | | [place] [address] | + + + | Home Phone | | + + + | Preferred Language | Unknown | + + + | Marital Status | Single | + + + | Congregation Affiliation | ZEFERINO | + + + [...] + | Yennifer Batista | ECON | [address] | | | | | [place] | | | | | [address] | | + + + + + Care Team Providers + +------+ + | Care Paddock Judge Name | Role | Phone | + +------+ + | Ed Landis MD | PCP | | + +------+ + Source Comments EVETTE is fully live on both EpicCare Ambulatory and EpicCare InPatient.[facility] Allergies + + + + [...] mass | 08/06/2014 | + + + Family History + + +------+ + | Medical History | Relation | Name | Comments | + + +------+ + | Heart Disease | Father | | [place] age 40's | + + +------+ + [...] | 06/16/2017, 05/01/2016, | | | vaccination (Season | 0 | 08/22/2013, Additional history | | | Ended) | | exists | | + + [...] | | | + +--------+ +--------+-------+---------+--------+ | CUSTOMER CARE COORDINATOR MEDICAID | CUSTOMER CARE COORDINATOR | xxxxxxxx | | | | Medica [...] Person | Self | [birth year] | | [address] | | | al/Fam | | 1961 | [phone] | [place] [address] | | | doni | | | [...]
--- OUTSIDE RECORDS SUMMARY | ~2019-12-15 | XMS | Encounter Summary ---
Demographics + + + | Address | [address] | | | [place] [address] | + + + | Home Phone [...] Author + + + | Author | [facility] | + + + | Organization | [facility] | + + + | Address | Unknown | + + + | Phone | Unavailable | + + + Support + + + + + | Name | Relationship | Address | Phone | + + + + + | Yennifer Batista | ECON | [address] | | | | | [place] | | | | | [address] | | + + + + + Care Team Providers + +------+ + | Care Processing Manager Name | Role | Phone | + +------+ + | Ed Landis MD | PCP | | + +------+ + Encounter Details +--------+ + + + + | Date | Type | Department | Care Team | Description | +--------+ + + + + | 08/12/ | Documentati | Digestive Health | Frederic Kohler | | | 2016 | on | Center at [facility] [address] | MD Kiesha,MPH [address] | | | | | [address] | [address] | | | | | Mailcode: [place] | [place] [address] | | | | | [facility] and | [phone] | | | | | [facility] [address] | | | | | | [place], [place] | | | | | | [address] | | | | | | [phone] | | | +--------+ + + + [...]
--- OUTSIDE RECORDS SUMMARY | ~2019-12-15 | XMS | Encounter Summary ---
Demographics + + + | Address | [address] | | | [place] [address] | + + + | Home Phone [...] + + | Author | [facility] | + + + | Organization | [facility] | + + + | Address | Unknown | + + + | Phone | Unavailable | + + + Support + + + + + | Name | Relationship | Address | Phone | + + + + + | Yennifer Batista | ECON | [address] | | | | | [place] | | | | | [address] | | + + + + + Care Team Providers + +------+ + | Care Property Portfolio Officer Name | Role | Phone | [...] | 2018 | | [address] | [facility] | | | | | [address] | [address] [facility] | | | | | Mailcode: [address] | [address] | | | | | [facility] | | | | | | [address] [place], | | | | | | [place] [address] | | | | | | [phone] | | | +--------+ + + + [...]
--- OUTSIDE RECORDS SUMMARY | ~2019-12-15 | XMS | Encounter Summary ---
Demographics + + + | Address | [address] | | | [place] [address] | + + + | Home Phone | | + + + | Preferred Language | Unknown | + + + | Marital Status | Single | + + + | Methodist Affiliation | ZEFERINO | + + + | Race | or | + + + | Ethnic Group | Not or | + + + Author + + + | Author | [facility] | + + + | Organization | [facility] [employer] [facility] | + + + | Address | Unknown | + + + | Phone | Unavailable | + + + Support + + + + + | Name | Relationship | Address | Phone | + + + + + | Yennifer Batista | ECON | [address] | | | | | [place] | | | | | [address] | | + + + + + Care Team Providers + +------+ + | Care Merchandising Intern Name | Role | Phone | + [...] [id number] | | | | | | [facility] | | | | | | [address] [place], [place] | | | | | | [address] | | | | | | [phone] | | | +--------+ + + + [...] perfume, lotions or powder. Remove any nail romanian from at least one fingernail. Do not [...] Surgery Check in Locations Day Stay Unit [facility], fourth floor Room 3305 Surgery Check in Time: Someone from your surgeon's office or [facility] will provide you with information [...] it is after office hours, call the [facility] relay operator at [phone] and ask them to page your doc tor. documented in this encounter Plan of Treatment Not on filedocumented as of this encounter Visit Diagnoses Not on filedocumented in this encounter"
--- OUTSIDE RECORDS SUMMARY | ~2019-12-15 | XMS | Encounter Summary ---
Demographics + + + | Address | [address] | | | [place] [address] | + + + | Home Phone [...] Author + + + | Author | [facility] | + + + | Organization | Counts Include [facility] [employer] [facility] | + + + | Address | Unknown | + + + | Phone | Unavailable | + + + Support + + + + + | Name | Relationship | Address | Phone | + + + + + | Yennifer Batista | ECON | [address] | | | | | [place] | | | | | [phone] | | + + + + + Care Team Providers + +------+ + | Care Performance Improvement Manager Name | Role | Phone | + +------+ + | Ed Landis MD PCP | | + +------+ + Encounter Details +--------+ + + + + | Date | Type | Department | Care Team | Description | +--------+ + + + + | 08/01/ | Pharmacy | Outpatient Retail | | | | 2016 | Visit | [facility] | | | | | | [address] | | | | | | [place], [place] | | | | | | [address] | | | | | | [phone] | | | +--------+ + + + [...]
--- OUTSIDE RECORDS SUMMARY | ~2019-12-15 | XMS | Encounter Summary ---
Demographics + + + | Address | [address] | | | [place] [address] | + + + | Home Phone | | + + + | Preferred Language | Unknown | + + + | Marital Status | Single | + + + | Christianity Affiliation | ZEFERINO | + + + | Race | or | + + + | Ethnic Group | Not or | + + + Author + + + | Author | [facility] | + + + | Organization | [facility] | + + + | Address | Unknown | + + + | Phone | Unavailable | + + + Support + + + + + | Name | Relationship | Address | Phone | + + + + + | Yennifer Batista | ECON | [address] | | | | | [place] | | | | | [address] | | + + + + + Care Team Providers + +------+ + | Care Insurance Office Supervisor Name | Role | Phone | [...] 2010 | Only | E The | [phone] | | | | | [place] | | | | | | [address] | | | +--------+ + + + [...] + + + | CHEST 2 VIEW [id number] | Routin | 07/10/2011 | | Results for this | | | e | 1:30 PM | | procedure are in the | | | | PST | | results section. | + +--------+ + + + documented in this encounter Results CHEST 2 VIEW [id number] (07/10/2011 1:30 PM PST) + + | [...]
--- OUTSIDE RECORDS SUMMARY | ~2019-12-15 | XMS | Encounter Summary ---
Demographics + + + | Address | [address] | | | [place] [address] | + + + | Home Phone [...] Author + + + | Author | [facility] | + + + | Organization | [facility] [employer] [facility] | + + + | Address | Unknown | + + + | Phone | Unavailable | + + + Support + + + + + | Name | Relationship | Address | Phone | + + + + + | Yennifer Batista | ECON | [address] | | | | | [place] | | | | | [address] | | + + + + + Care Team Providers + +------+ + | Care Bicycle I Assembler Name | Role | Phone | + +------+ + | Sujatha Sullivan PCP | | | SMALL PARTS SHAPER OPERATOR | | | + +------+ + Reason [...] | | 2014 | | Preventive at [facility] | RASHI [address] | (Periorperative risk | | | | [address] | [address] [place], | ) | | | | Mailcode: [facility] | [place] [address] | | | | | [facility] | [phone] | | | | | and [place], | | | | | | [address] | | | | | | [place], [place] | | | | | | [address] | | | | | | [phone] | | | +--------+ + + + [...]
--- OUTSIDE RECORDS SUMMARY | ~2019-12-15 | XMS | Encounter Summary ---
Demographics + + + | Address | [address] | | | [place] [address] | + + + | Home Phone [...] Author + + + | Author | [facility] | + + + | Organization | [facility] [employer] [facility] | + + + | Address | Unknown | + + + | Phone | Unavailable | + + + Support + + + + + | Name | Relationship | Address | Phone | + + + + + | Yennifer Segovia | ECON | [address] | | | | | [place] | | | | | [address] | | + + + + + Care Team Providers + +------+ + | Care Human Capital Consultant Name | Role | Phone | [...] + + | 08/17/ | Hospital | [facility] [address] | Theresa Beyer, | | | 2015 - | Encounter | [address] | [address] [place] [address] | | | | | 12/[facility]31 [facility] | [place] [address] | | | 08/22/ | | [facility], | [phone] | | | 2014 | | [place] [address] | | | | | | [phone] | | | +--------+ + + + [...] can cause constipation, so you may take lguo-vyi-qltarcm stool softeners (Senok ot-S, Miralax, Colace) following [...] Physician: Theresa Beyer MD Patient: COREEN SEGOVIA [id number] 24H events/Subjective: МАРИНА overnight. Emesis x1 yesterday [...] is Theresa Beyer MD. PATRICIA PATTERSON MD [facility] [address] [facility] [address] [place] [address] Zay Sherman MD - 08/20/2014 4:54 AM PST Urology Progress Note Hospital Day: 3 Author: ZAY HERNANDEZ MD Attending Physician: Theresa Beyer MD Patient: COREEN SEGOVIA [id number] 24H events/Subjective: No acute events overnight. Pain [...] Resident - R5 Department of Urology Pager #[phone] Zay Sherman MD - 08/19/2014 7:49 AM PST Urology Progress Note Hospital Day: 2 Author: PATRICIA PATTERSON MD Attending Physician: Theresa Beyer MD Patient: COREEN SEGOVIA [id number] 24H events/Subjective: МАРИНА overnight. Pain is adequately [...] Caitlin Falk NP Adult Pain Service Pager [phone] Team Pager [phone] Caitlin Jiménez NP - 08/18/2014 8:02 AM [...] and summary of old medical records (source: [facility]), as summarized in the body of the note. CAITLIN FALK NP BILLING INFORMATION [facility] DEPARTMENT: [phone] Place of Service:- Inpatient Date of Service: 08/18/2014 [facility]: [id number] Suggested Modifier: None Suggested CPT: 18650 - Daily mgmt epidural/subarachnoid drug administration Prolonged service: n/a Counseling and Coordination: n/a Patricia Chappell MD - 08/18/2014 6:46 AM PST Urology Progress Note Hospital Day: 1 Author: PATRICIA PATTERSON MD Attending Physician: Theresa Beyer MD Patient: COREEN ALDANA [facility] [id number] 24H events/Subjective: Tachycardic overnight asymptomatic otherwise >> [...] is Theresa Beyer MD. PATRICIA PATTERSON MD [facility] [address] [address] [place] [address] Zay Sherman MD - 08/17/2014 10:44 AM PST [facility] PRE-OPERATIVE HISTORY & PHYSICAL EXAM CHIEF [...] History Procedure Laterality Date Jaw surgery 1986 [facility] Cyst removal-leg Right 1993 Lower leg CURRENT [...] Resident - R5 Department of Urology Pager #[phone] documented in this encounter Plan of Treatment [...] | + + + + + | [facility] | [address] | [place] [address] | | | SERVICES, CORE | ELLEN [...] | + + + + + | [facility] | [address] [facility] | [place] [address] | | | SERVICES, CORE | PARK [...] [facility] | [address] | [place] [address] | | | SERVICES, CORE | PARK [...] | | | LABORATORY | | | TANZANIAN | | | SERVICES, | | | [...] | + + + + + | [facility] | [address] | [place] [address] | | | CAM WALLS | ELLEN [...] | + + + + + | [facility] [employer] | [address] | [place] [address] | | | SERVICES, CORE | ELLEN [...] [facility] | [address] | [place] [address] | | | SERVICES, CORE | PARK [...] [facility] | [address] | [place] [address] | | | SERVICES, CORE | PARK [...] | | | LABORATORY | | | TANZANIAN | | | SERVICES, | | | [...] the MDRD equation recommended by the | [facility] | | National Kidney Disease Education [...] | + + + + + | [facility] | [address] | [place] [address] | | | SERVICES, CORE | PARK [...] [facility] | [address] | [place] [address] | | | SERVICES, CORE | PARK [...] | + + + + + | [facility] | [address] | [place] [address] | | | SERVICES, CORE | [address] | | | + + + + + MAGNESIUM, PLASMA (08/20/2014 6:42 AM PST) + +---------+ + + + | Component | Value | Ref Range | Performed | Pathologist | | | | | At | Signature | + +---------+ + + + | MAGNESIUM,P | 1.6 (L) | 1.8 - 2.5 mg/dL | [facility] | | | LASMA | | [...] | + + + + + | [facility] | [address] | [place] [address] | | | SERVICES, CORE | PARK [...] | | | LABORATORY | | | TANZANIAN | | | SERVICES, | | | [...] the MDRD equation recommended by the | [facility] | | National Kidney Disease Education [...] [facility] | [address] | [place] [address] | | | SERVICES, CORE | PARK [...] [facility] | [address] | [place] [address] | | | KAVITA, CAM | PARK [...] | | | LABORATORY | | | TANZANIAN | | | SERVICES, | | | [...] | + + + + + | [facility] | [address] | [place] [address] | | | SERVICES, CORE | ELLEN [...] [facility] | [address] | [place] [address] | | | SERVICES, CORE | PARK [...] [facility] | [address] | [place] [address] | | | SERVICES, CORE | PARK [...] [facility] | [address] | [place] [address] | | | SERVICES, CORE | PARK [...] [facility] | [address] | [place] [address] | | | SERVICES, CORE | PARK [...] | + + + + + | [facility] | [address] | [place] [address] | | | SERVICES, CORE | ELLEN [...] | | | LABORATORY | | | TANZANIAN | | | SERVICES, | | | [...] [facility] | [address] | [place] [address] | | | KAVITA, CAM | PARK [...] | + + + + + | [facility] | [address] | [place] [address] | | | SERVICES, CORE | ELLEN [...] [facility] | [address] | [place] [address] | | | SERVICES, CORE | PARK [...] | | | LABORATORY | | | TANZANIAN | | | SERVICES, | | | [...] | + + + + + | [facility] | [address] [facility] | [place] [address] | | | KAVITA, CAM | ELLEN [...] [facility] | [address] | [place] [address] | | | SERVICES, CAM | ELLEN [...] DEPT OF | [address] | [place], [place] | | | CARDIOLOGY | [address] | [address] | | + + + + + [...] GONZALEZ | [address] | [place], [place] | | | [facility] [place] OF CARE | [address] | [address] | | | TESTS | | | [...] MARQUAM | [address] | [place], [place] | | | AR[place] OF RICKIE | [address] | [address] | | | TESTS | | | [...] - CARLOS | [address] | [place], [place] | | | [facility] OF CARE | [address] | [address] | | | TESTS | | | [...] GONZALEZ | [address] | [place], [place] | | | [facility] | [facility] | [address] | | | TESTS | | | [...] CARLOS | [address] | [place], [place] | | | [place] OF [place] | [address] | [address] | | | TESTS | | | [...] - SHARATHAM | [address] | [place], [place] | | | [facility] OF CARE | [facility] | [address] | | | TESTS | | | [...] CARLOS | [address] | [place], [place] | | | SREE [facility]INT OF CARE | [address] | [address] | | | TESTS | | | [...] CARLOS | [address] | [place], [place] | | | AR[facility] OF CARE | [address] | [address] | | | TESTS | | | [...] Index:A1-3, | | | | | | customer success representative adrenal | | | | | | to massA4-6, | | | | | | customer success representative | | | | | | [...] | + + + + + | [facility] | [address] | [place] [address] | | | PATHOLOGY | [address] [...] | | | DAILY, First dose on [facility] 08/17/14 | | AM PST | [...]
--- OUTSIDE RECORDS SUMMARY | ~2019-12-15 | XMS | Encounter Summary ---
Demographics + + + | Address | [address] | | | [place] [address] | + + + | Home Phone [...] + + | Author | [facility] | + + + | Organization | [facility] | + + + | Address | Unknown | + + + | Phone | Unavailable | + + + Support + + + + + | Name | Relationship | Address | Phone | + + + + + | Yennifer Batista | ECON | [address] | | | | | [place] | | | | | [address] | | + + + + + Care Team Providers + +------+ + | Care Merchant Police Name | Role | Phone | + [...] + + + + | 02/17/ | Hospital | [facility] GI PROCEDURE | Dar Drake MD | | | 2018 | Encounter | [address] | [address] | | | | | Ave Mailcode: [facility] | [place], [place] | | | | | [facility] | [address] | | | | | Health and Healing, | [phone] | | | | | [place] [address] | | | | | | [place], [place] | | | | | | [address] | | | | | | [phone] | | | +--------+ + + + [...] + + + | Blood Pressure | 111/89 | 02/17/2018 3:45 PM | | | | | PDT | | + + + + + | Pulse | 100 | 02/17/2018 3:10 PM | | | | | PDT | | + + + + + | Temperature | 36.5 C (97.7 F) | 02/17/2018 2:01 PM | | | | | PDT | | + + + + + | Respiratory Rate | 14 | 02/17/2018 3:45 PM | | | | | PDT | | + + + + + | Oxygen Saturation | 100% | 02/17/2018 3:45 PM | | | | | PDT | | + + + + + | Inhaled Oxygen | - | - | | | Concentration | | | | + + + + + | Weight | 48.4 kg (106 lb 9.6 | 02/17/2018 2:01 PM | | | | oz) | PDT | | + + + + + | Height | - | - | | + + + + + | Body Mass Index | 18.3 | 07/22/2016 3:38 AM | | | | | PST | | + + + + + documented in this encounter Discharge Instructions Instructions Oliver Nguyễn RN - 02/17/2018Jal Care Instructions after EGD (Upper Endos copy) You may resume your normal diet and [...] hours or on weekends and holiday Hospital Policy Change Clerks Supervisor toll free [phone]. [phone] and have the GI doctor distribution center administrator paged. The provider who performed your procedure is: Dr. Drake Results of your EGD: Unable to complete today's procedure. You will be called to reschedule with anesthesia. Follow up Appointments with: Follow up with your primary care provider as needed. Your primary care provider or referring provider will receive copies of the procedure repor t and all the pathology reports with recommendations for treatment if needed. If Noted above that biopsies were taken or polyps removed we will receive the results in ap proximately 1 week. If you have not heard from us after 2 weeks please call for your results . documented in this encounter Medications at Time [...] + + documented as of this encounter Progress Notes Dar Drake MD - 02/17/2018 2:53 PM PDTFormatting of this note might be different from jaja madden. PRE PROCEDURE NOTE: MR# [id number] Subjective: Franck Batista is a 57 y.o. male who presents today for EGD. Patient History Reviewed Medications reviewed Allergies: Allergies as of 02/01/2018 - Fully Reviewed 01/08/2018 Allergen Reaction Noted Naproxen Hives 03/21/2014 Pt NPO for 12 hrs. ROS: All others negative. Objective: Vital Signs: BP 125/101 | Pulse 94 | Temp 36.5 C (97.7 F) | RR 16 | Wt 48.4 kg (106 lb 9.6 oz) | SpO2 100% | BMI 18.3 kg/(m^2) Neuro: Patient oriented X3. Mental status clear and intact Mallampati Score: I Neck negative Respiratory: Lungs clear to auscultation bilaterally with good air exchange Cardiovascular: PMI normal. No lifts, heaves, or thrills. RRR. No murmurs, rubs or gallops Abdomen: soft, normal active bowel sounds, nontender, no masses, no organomegaly Impression Patient deemed appropriate candidate for planned procedure and sedation. ASA:2 Plan Proceed with EGD PARQ held and all questions addressed. Consent obtained. See procedure note 02/17/2018 documented in this encoun ter Plan of Treatment Not on filedocumented as of this encounter Procedures + +--------+ + + + | Procedure Name | Priori | Date/Time | Associated Diagnosis | Comments | | | ty | | | | + +--------+ + + + | EGD | Routin | 02/17/2018 | Esophageal | Results for this | | | e | 2:39 PM | stricture S/P | procedure are in the | | | | PDT | dilatation of | results section. | | | | | esophageal stricture | | | | | | Polyp of colon, | | | | | | unspecified part of | | | | | | colon, unspecified | | | | | | type | | + +--------+ + + + documented in this encounter Results EGD (02/17/2018 2:39 PM PDT) + + | Specimen | + + | | + + + + + | Narrative | Performed At | + + + | MRN: | [facility] | | [id number] Date: 02/17/2018Patient Name: Franck Mares #: | ENDOSCOPY | | [id number] of : 1960CSN: [id number] Type: | | | AmbulatoryRoom: [facility] 1Procedure: Upper GI | | | endoscopyIndications: DysphagiaProviders: | | | DAR DRAKE MD (Doctor), OLIVER NGUYỄN RN (Nurse), | | | TYE GLYNN (Vocational Services Specialist), SANDRA MORALES, Vocational Services Specialist | | | (Vocational Services Specialist)Referring MD: | | | DAKSHA ALARCON MDRequesting Provider: Medicines: | | | Midazolam [...] | | | The [employer] [id number] Gastroscope #[id number] was | | | introduced through the [...] | | omeprazole 20mg q AM (script given)DAR DRAKE | | | 02/17/2018 3:24:58 PMThis report has been signed electronically.Number | | | of Addenda: 0Note Initiated On: 02/17/2018 2:39 PM | | | omeprazole 20mg q AM (script given) | | |DAR DRAKE MD | | |02/17/2018 3:24:58 PM | | |This report has been signed electronically. | | |Number of Addenda: 0 | | |Note Initiated On: 02/17/2018 2:39 PM | | + + + + +---------+ + + | Performing | Address | City/State[facility] | Phone Number | | Organization | | | | + +---------+ + + | [facility] | | | | + +---------+ + + documented in this encounter Visit Diagnoses + + | Diagnosis | + + | S/P dilatation of esophageal stricture - Primary Other postprocedural status | + + | Polyp of transverse colon, unspecified type | + + | Esophageal stricture Stricture and stenosis of esophagus | + + | Polyp of colon, unspecified part of colon, unspecified type | + + documented in this encounter Administered Medications + +--------+ +--------+------+------+ | Medication Order | MAR | Action | Dose | Rate | Site | | | Action | Date | | | | + +--------+ +--------+------+------+ | fentaNYL (SUBLIMAZE) injection | Given | 02/18/20 | 50 mcg | | | | intravenous, INTRAPROCEDURE PRN, | | 18 2:57 | | | | | Starting Thu02/17/18 at 1457, | | PM PDT | | | | | Until Thu02/17/18 at 1457 | | | | | | + +--------+ +--------+------+------+ +---+---+ | | | +---+---+ + +-------+ +--------+---+---+ | fentaNYL (SUBLIMAZE) injection | Given | 02/18/20 | 25 mcg | | | | intravenous, INTRAPROCEDURE PRN, | | 18 3:00 | | | | | Starting Thu02/17/18 at 1500, | | PM PDT | | | | | Until Thu02/17/18 at 1500 | | | | | | + +-------+ +--------+---+---+ +---+---+ | | | +---+---+ + +-------+ +--------+---+---+ | fentaNYL (SUBLIMAZE) injection | Given | 02/18/20 | 25 mcg | | | | intravenous, INTRAPROCEDURE PRN, | | 18 3:01 | | | | | Starting Thu02/17/18 at 1501, | | PM PDT | | | | | Until Thu02/17/18 at 1501 | | | | | | + +-------+ +--------+---+---+ + +---+ | | | + +---+ | lidocaine viscous (XYLOCAINE | | | VISCOUS) 2 % mucosal solution 15 | | | mL 15 mL, oral, INTRAPROCEDURE | | | PRN, Starting Thu02/17/18 at 1400, | | | Until Thu02/17/18 at 2211, sore | | | oropharynx | | + +---+ | | | + +---+ + +-------+ +------+---+---+ | lidocaine viscous (XYLOCAINE | Given | 02/18/20 | 8 mL | | | | VISCOUS) 2 % mucosal solution | | 18 2:54 | | | | | Mouth/Throat, INTRAPROCEDURE PRN, | | PM PDT | | | | | Starting Thu02/17/18 at 1454, | | | | | | | Until Thu02/17/18 at 1454 | | | | | | + +-------+ +------+---+---+ +---+---+ | | | +---+---+ + +-------+ +------+---+---+ | midazolam (PF) (VERSED) | Given | 02/18/20 | 2 mg | | | | injection INTRAPROCEDURE PRN, | | 18 2:57 | | | | | Starting Thu02/17/18 at 1457, | | PM PDT | | | | | Until Thu02/17/18 at 1457 | | | | | | + +-------+ +------+---+---+ +---+---+ | | | +---+---+ + +-------+ +------+---+---+ | midazolam (PF) (VERSED) | Given | 02/18/20 | 1 mg | | | | injection INTRAPROCEDURE PRN, | | 18 3:00 | | | | | Starting Thu02/17/18 at 1500, | | PM PDT | | | | | Until Thu02/17/18 at 1500 | | | | | | + +-------+ +------+---+---+ +---+---+ | | | +---+---+ + +-------+ +------+---+---+ | midazolam (PF) (VERSED) | Given | 02/18/20 | 1 mg | | | | injection INTRAPROCEDURE PRN, | | 18 3:02 | | | | | Starting Thu02/17/18 at 1502, | | PM PDT | | | | | Until Thu02/17/18 at 1502 | | | | | | + +-------+ +------+---+---+ +---+---+ | | | +---+---+ + +-------+ +------+---+---+ | midazolam (PF) (VERSED) | Given | 02/18/20 | 1 mg | | | | injection INTRAPROCEDURE PRN, | | 18 3:02 | | | | | Starting Thu02/17/18 at 1502, | | PM PDT | | | | | Until Thu02/17/18 at 1502 | | | | | | + +-------+ +------+---+---+ + +---+ | | | + +---+ | simethicone (MYLICON) | | | suspension 3.333 mg 3.333 mg | | | (rounded from 3.3333 mg = 1 | | | drop), oral, INTRAPROCEDURE PRN, | | | Starting Thu02/17/18 at 1400, | | | Until Thu02/17/18 at 2211, gas | | | bubbles in endoscope | | + +---+ | | | + +---+ + +---------+ + + +---+ | sodium chloride 0.9 % (NS) IV | New Bag | 02/18/20 | 50 mL/hr | 50 mL/hr | | | infusion 50 mL/hr, intravenous, | | 18 2:24 | | | | | CONTINUOUS, Starting Thu02/17/18 | | PM PDT | | | | | at 1415, Until Thu02/17/18 at 2211 | | | | | | + +---------+ + + +---+ +---+---+ | | | +---+---+ documented in this encounter"
--- OUTSIDE RECORDS SUMMARY | ~2019-12-15 | XMS | Encounter Summary ---
Demographics + + + | Address | [address] | | | [place] [address] | + + + | Home Phone | | + + + | Preferred Language | Unknown | + + + | Marital Status | Single | + + + | Yazidi Affiliation | ZEFERINO | + + + | Race | or | + + + | Ethnic Group | Not or | + + + Author + + + | Author | [facility] | + + + | Organization | [facility] [employer] [facility] | + + + | Address | Unknown | + + + | Phone | Unavailable | + + + Support + + + + + | Name | Relationship | Address | Phone | + + + + + | Yennifer Batista | ECON | [address] | | | | | [place] | | | | | [address] | | + + + + + Care Team Providers + +------+ + | Care Universal Branch Consultant Name | Role | Phone | + +------+ + | Ed Landis MD PCP | | + +------+ + Encounter Details +--------+ + + + + | Date | Type | Department | Care Team | Description | +--------+ + + + + | 07/31/ | Pharmacy | Outpatient Retail | | | | 2016 | Visit | [facility] | | | | | | [address] | | | | | | [place], [place] | | | | | | [address] | | | | | | [phone] | | | +--------+ + + + [...]
--- OUTSIDE RECORDS SUMMARY | ~2019-12-15 | XMS | Encounter Summary ---
Demographics + + + | Address | [address] | | | [place] [address] | + + + | Home Phone [...] Author + + + | Author | [facility] | + + + | Organization | [facility] [employer] [facility] | + + + | Address | Unknown | + + + | Phone | Unavailable | + + + Support + + + + + | Name | Relationship | Address | Phone | + + + + + | Yennifer Batista | ECON | [address] | | | | | [place] | | | | | [address] | | + + + + + Care Team Providers + +------+ + | Care Entrance Guard Name | Role | Phone | + +------+ + | Ed Landis MD PCP | | + +------+ + Encounter Details +--------+ + + + + | Date | Type | Department | Care Team | Description | +--------+ + + + + | 05/30/ | Transcribe | [facility] | Transcribe | | | 2019 | Orders | [facility] [address] | Encounter, Provider, | | | | | John Rashid Mailcode: | MD [address] | | | | | [address] [facility] | [place] [address] | | | | | Health [facility] Healing, | | | | | | [address] | | | | | | [place], [place] | | | | | | [address] | | | | | | [phone] | | | +--------+ + + + [...]
--- OUTSIDE RECORDS SUMMARY | ~2019-12-15 | XMS | Encounter Summary ---
Demographics + + + | Address | [address] | | | [place] [address] | + + + | Home Phone | | + + + | Preferred Language | Unknown | + + + | Marital Status | Single | + + + | Anabaptist Affiliation | ZEFERINO | + + + | Race | or | + + + | Ethnic Group | Not or | + + + Author + + + | Author | [facility] | + + + | Organization | [facility] [employer] [facility] | + + + | Address | Unknown | + + + | Phone | Unavailable | + + + Support + + + + + | Name | Relationship | Address | Phone | + + + + + | Yennifer Batista | ECON | [address] | | | | | [place] | | | | | [address] | | + + + + + Care Team Providers + +------+ + | Care Roll Or Tape Edge Machine Operator Name | Role | Phone [...] | on | General Surgery at | [facility] | | | | | [address] [place], [place] | | | | | [address] | [address] | | | | | [facility] [place], | | | | | | [address]nd Floor | | | | | | [place], [place] | | | | | | [address] | | | | | | [phone] | | | +--------+ + + + [...]
--- OUTSIDE RECORDS SUMMARY | ~2019-12-15 | XMS | Encounter Summary ---
Demographics + + + | Address | [address] | | | [place] [address] | + + + | Home Phone | | + + + | Preferred Language | Unknown | + + + | Marital Status | Single | + + + | Yazidism Affiliation | ZEFERINO | + + + | Race | or | + + + | Ethnic Group | Not or | + + + Author + + + | Author | [facility] | + + + | Organization | [facility] [employer] [facility] | + + + | Address | Unknown | + + + | Phone | Unavailable | + + + Support + + + + + | Name | Relationship | Address | Phone | + + + + + | Yennifer Batista | ECON | [address] | | | | | [place] | | | | | [address] | | + + + + + Care Team Providers + +------+ + | Care Motor Vehicle Lecturer Name | Role | Phone | + +------+ + | Yasmeen Landis MD | PCP | | + +------+ + Encounter Details +--------+ + + + + | Date | Type | Department | Care Team | Description | +--------+ + + + + | 09/12/ | Inside | [facility] | Frederic Kohler | | | 2017 | Referral | [facility] [address] MD,MP[facility] [address] | | | | Order | [address] Mailcode: | [address] | | | | | [address] [facility] | [place] [address] | | | | | Health and Healing, | [phone] | | | | | [address] | | | | | | [place], [place] | | | | | | [address] | | | | | | [phone] | | | +--------+ + + + [...] -------+ | MRN: | [id number] | | [id number] Date: 09/17/2016Patient Name: Order #: [id number] | ENDOSC OPY | | of : 1960CSN: [id number]: [facility] 2Procedure: | | | Upper GI endoscopyIndications: [...] The Olympus GIF-[id number] Gastroscope | | | #[id number] was introduced through the | | | [...]
--- OUTSIDE RECORDS SUMMARY | ~2019-12-15 | XMS | Encounter Summary ---
Demographics + + + | Address | [address] | | | [place] [address] | + + + | Home Phone | | + + + | Preferred Language | Unknown | + + + | Marital Status | Single | + + + | Episcopal Affiliation | ZEFERINO | + + + | Race | or | + + + | Ethnic Group | Not or | + + + Author + + + | Author | [facility] | + + + | Organization | [facility] [employer] [facility] | + + + | Address | Unknown | + + + | Phone | Unavailable | + + + Support + + + + + | Name | Relationship | Address | Phone | + + + + + | Yennifer Batista | ECON | [address] | | | | | [place] | | | | | [address] | | + + + + + Care Team Providers + +------+ + | Care Agile Project Manager Name | Role | Phone | [...] 2018 | | [address] | [facility] | | | | | [address] | [address] [facility] [place] | | | | | Mailcode: [id number] | [address] | | | | | [facility] [place] | | | | | | [address] [place], | | | | | | [place] [address] | | | | | | [phone] | | | +--------+ + + + [...]
--- OUTSIDE RECORDS SUMMARY | ~2019-12-15 | XMS | Encounter Summary ---
Demographics + + + | Address | [address] | | | [place] [address] | + + + | Home Phone [...] + | Author | [facility] [employer] [facility] | + + + | Organization | [facility] [facility] | + + + | Address | Unknown | + + + | Phone | Unavailable | + + + Support + + + + + | Name | Relationship | Address | Phone | + + + + + | Yennifer Batista | ECON | [address] | | | | | [place] | | | | | [address] | | + + + + + Care Team Providers + +------+ + | Care Fruit Inspector Name | Role | Phone | + +------+ + | Sujatha Sullivan | PCP | | | STOVE CLEANER | | | + +------+ + Reason [...] | 06/02/ | Office | Urology at [facility] | Theresa Beyer, | Adrenal mass, left | | 2013 | Visit | [address] | [address] | ([facility]) (Primary Dx) | | | | Mailcode: [id number] | [place], [place] [address] | | | | | [place] for [facility] | [phone] | | | | | and [place], | | | | | | | | | | | | Floor [place], [place] | | | | | | [address] | | | | | | [phone] | | | +--------+---------+ + + + [...] of this diet are: Water, Helen lokesh, Lemon-muckleshoot soft drinks, Apple juice, Tea or c offee without creamer, Gatorade/sports drinks, Jell-O, Broth soups, Popsicle. 2. Laxative: These laxatives are liquids and are taken by mouth. They will stimulate bowel movements. Magnesium Citrate. Drink 1 bottle(s) of magnesium citrate at 12:00pm (or, the early aftern oon) the day before your surgery. Stay close to the bathroom. This is purchased over the [employer]. 3. Hibiclen's (This soap will be provided [...] speak to the Urology Resident who is logistics loss prevention manager. documented in this encounter Progress Notes Theresa [...]
--- OUTSIDE RECORDS SUMMARY | ~2019-12-15 | XMS | Encounter Summary ---
Demographics + + + | Address | [address] | | | [place] [address] | + + + | Home Phone | | + + + | Preferred Language | Unknown | + + + | Marital Status | Single | + + + | Jainism Affiliation | ZEFERINO | + + + | Race | or | + + + | Ethnic Group | Not or | + + + Author + + + | Author | [facility] | + + + | Organization | [facility] | + + + | Address | Unknown | + + + | Phone | Unavailable | + + + Support + + + + + | Name | Relationship | Address | Phone | + + + + + | Yennifer Segovia | ECON | [address] | | | | | [place] | | | | | [address] | | + + + + + Care Team Providers + +------+ + | Care Skiing Teacher Name | Role | Phone | [...] [address] | | | | | [place] | [place], | | | [birth year] | | [address] | [place] [address] | | | 2017 | | [phone] | [phone] | | | | | | | [...] eventual ly enteric nutrition. Steve Martin MD [facility] DEPARTMENT OF SURGERY EMERGENCY GENERAL SURGERY Division [...] 14cm adrenal myelolipoma. He originally presented to [facility] in [place], [place] with a week of worsening abdominal [...] artery syndrome. Mr Segovia was transferred to [facility] on 07/22 for further cares. On arrival [...] CA19-9 further malignancy workup was performed: a [facility] CT showed nonspecific small pulmonary nodules, most [...] kg/(m^2). Medications: Coreen Segovia Home Medication Instructions DARLIN:[id number] Printed on:08/01/16 2758 Medication Information acetaminophen 325 mg oral tablet [...] that I, or Nurse Practitioner or Physician Beam Racker working with me, had a face to face encounter with this patient on 08/01/2016 On behalf of Attending Physician: Mary Her MD I am ordering and certify that the following services are medically necessary [facility] Detention Evaluate and Treat I am ordering and certify that the following services are medically necessary [facility] Physical Therapy Evaluate and Treat I certify that the patient is homebound based on the following clinical findings Post-hospi jocelyn weakness, decreased strength and endurance, and tires easily with minimal exertion Other Discharge Orders and Instructions ACUTE CARE SURGERY/ EMERGENCY GENERAL SURGERY CLINIC FOLLOW UP Location: Physician [address]. [address] located on the [facility] campus across from the Hospital PAIN medications [...] resource once you are discharged. Call the [facility] underwriting service representative for questions or concerns related to [...] up with Trauma Emergency General Surgery at [facility]. Go on 08/11/2016. Specialty: Trauma Center Contact information [address] Mailcode: L223a [facility] [address] [address] Additional information: [facility] 2nd floor [address]. The Physician's Pavilion is the building just past [facility]. Turn r ight immediately past the Pavilion. The entrance to the garage will be on your right just be yond the main entrance to the Pavilion. [employer] parking is available in the Physician's Pavili [...] Student Follow-Up Note Date: 08/01/2016 Author: Faina Amaay MS4 IMPRESSION/PLAN: Lester Juárez is a 55 [...] fellow with any questions. Faina Amaya, MS4 [facility] Pager: [phone] INTERVAL HISTORY: -- Received 1 unit pRBCs [...] questions. Gege Mcrae MD Gastroenterology Fellow Pager [phone] INTERVAL HISTORY: - EGD with dilation of [...] PM PST Pre Sedation Endoscopy Note: MR# [id number] Subjective: Coreen Segovia is a 55 y.o. [...] Date: 07/31/2016 Admission Date: 07/22/2016 COREEN SEGOVIA, [id number] Hospital Day #9 Procedures: 07/29: EGD, colonoscopy [...] Zay Espinoza MD Emergency General Surgery PGY1 [phone] Paola Andres - 07/31/2016 8:26 AM PST [...] fellow with any questions. Faina Monique, MS4 [facility] Pager: [phone] INTERVAL HISTORY: -- Esophageal biopsy negative for [...] Date: 07/30/2016 Admission Date: 07/22/2016 COREEN SEGOVIA, [id number] Hospital Day #8 Procedures: 07/29: EGD, colonoscopy [...] Zay Espinoza MD Emergency General Surgery PGY1 [id number] Associated attestation - Steve Martin MD - 07/30/2016 4:56 PM PST ATTENDING ADDENDUM: I saw, examined, and evaluated the patient. I agree with the findings and the plan of care as documented in the resident's/fellow s note, with additions/edits made to the note to r eflect my findings and clinical impression. Steve Martin MD [facility] [address] [place] [address] Daniel Sanchez MD - 07/29/2016 5:28 PM [...] fellow with any questions. Faina Amaya, MS4 [facility] Pager: [phone] Lester Juárez is a 55 year-old male [...] PST EGS Inpatient Daily Progress Note: Author: uJstin Cuevas MD Attending Physician: Abdulaziz Redding MD Primary Care Provider: Ed Landis MD Note Date: 07/29/2016 Admission Date: 07/22/2016 COREEN SEGOVIA, [id number] Hospital Day #7 Subjective: GoLytely prep overnight, [...] Justin Cuevas M.D. Plastic Surgery Resident Pager [phone] Justin Silva MD - 07/28/2016 6:16 AM PST EGS Inpatient Daily Progress Note: Author: Justin Cuevas MD Attending Physician: Abdulaziz Redding MD Primary Care Provider: Ed Landis MD Note Date: 07/28/2016 Admission Date: 07/22/2016 COREEN SEGOVIA, [id number] Hospital Day #6 Subjective: No overnight events [...] Justin Cuevas M.D. Plastic Surgery Resident Pager [phone] Shira, Justin Anderson MD - 07/27/2016 8:52 AM PST EGS Inpatient Daily Progress Note: Author: Justin Cuevas MD Attending Physician: Abdulaziz Redding MD Primary Care Provider: Ed Landis MD Note Date: 07/27/2016 Admission Date: 07/22/2016 COREEN SEGOVIA, [id number] Hospital Day #5 Subjective: No overnight events [...] Justin Cuevas M.D. Plastic Surgery Resident Pager [phone] Justin Silva MD - 07/26/2016 12:16 PM PST EGS Inpatient Daily Progress Note: Author: Justin Cuevsa MD Attending Physician: Abdulaziz Redding MD Primary Care Provider: Ed Landis MD Note Date: 07/26/2016 Admission Date: 07/22/2016 COREEN SEGOVIA, [id number] Hospital Day #4 Subjective: No overnight events [...] Justin Cuevas M.D. Plastic Surgery Resident Pager [phone] Justin Silva MD - 07/25/2016 6:06 AM PST EGS Inpatient Daily Progress Note: Author: Justin Cuevas MD Attending Physician: Abdulaziz Redding MD Primary Care Provider: Ed Landis MD Note Date: 07/25/2016 Admission Date: 07/22/2016 COREEN SEGOVIA, [id number] Hospital Day #3 Subjective: No overnight events [...] Justin Cuevas M.D. Plastic Surgery Resident Pager [phone] Justin Silva MD - 07/24/2016 8:00 AM PST EGS Inpatient Daily Progress Note: Author: Justin Cuevas MD Attending Physician: Abdulaziz Redding MD Primary Care Provider: Ed Landis MD Note Date: 07/24/2016 Admission Date: 07/22/2016 COREEN SEGOVIA, [id number] Hospital Day #2 Subjective: No overnight events [...] Justin Cuevas M.D. Plastic Surgery Resident Pager [phone] Shira, Justin Anderson MD - 07/23/2016 10:39 AM PST Plastic Surgery Inpatient Daily Progress Note: Author: Justin Cuevas MD Attending Physician: Abdulaziz Redding MD Primary Care Provider: Ed Landis MD Note Date: 07/23/2016 Admission Date: 07/22/2016 COREEN SEGOVIA, [id number] Hospital Day #1 Subjective: No overnight events [...] Justin Cuevas M.D. Plastic Surgery Resident Pager [phone] documented in this encounter Plan of Treatment [...] | | | Erica, | | | [facility] | | | C, MD | | [...] | | | Bakis. | | | [facility] | | | Erica, | | | [...] | | | Father | | | [place] | | | age | | | [...] | | | whawk | | | [place] | | | | | | Health [...] | | | s | | | auto service advisor | | | ior to | | [...] | | + +---------+ + + | [facility] DEPARTMENT OF | | | | | [...] | + + + + + | [facility] | [address] | [place] [address] | | | SERVICES, CORE | SHANIA [...] | + + + + + | [facility] | [address] | [place] [address] | | | SERVICES, [facility] | [address] | | | + [...] [facility] | [address] | [place] [address] | | | SERVICES, | [address] [...] [facility] | [address] | [place] [address] | | | SERVICES, | [address] [...] + + + + | PRODUCT | [id number] | | [facility] | | | UNIT [...] + + + + | EXPIRATION | [id number] | | [facility] | | | DATE [...] + + + + | BLOOD | [id number] | | [facility] | | | PRODUCT [...] [facility] | [address] | [place] [address] | | | SERVICES, | [address] [...] [facility] | [address] | [place] [address] | | | SERVICES, CORE | PARK [...] | + + + + + | [facility] | [address] | [place] [address] | | | SERVICES, CORE | SHANIA [...] | | | LABORATORY | | | IRAQI | | | SERVICES, | | | [...] | + + + + + | [facility] | [address] | [place] [address] | | | SERVICES, CORE | SHANIA [...] + + | Performing | Address | City[facility]State[facility] | Phone Number | | Organization | | | | + +---------+ + + | [facility] DEPARTMENT OF | | | | | [...] | + + + + + | [facility] | [address] | [place] [address] | | | SERVICES, CORE | SHANIA [...] | | | LABORATORY | | | IRAQI | | | SERVICES, | | | [...] the MDRD equation recommended by the | [facility] | | National Kidney Disease [...] | + + + + + | [facility] | [address] | [place] [address] | | | SERVICES, CORE | SHANIA [...] + + + | [facility] | [address] | [place] [address] | | | DIAGNOSTIC | [address] [...] [facility] | [address] | [place], [place] | | | [facility] | [address] | [address] | | | TESTS | | | [...] [facility] | [address] | [place] [address] | | | CAM WALLS | SHANIA [...] | + + + + + | [facility] - | [address] | [place] [address] | | | [place] | | | | + + + [...] | + + + + + | [facility] | [address] | [place] [address] | | | SERVICES, CAM | SHANIA [...] | | | LABORATORY | | | IRAQI | | | SERVICES, | | | [...] [facility] | [address] | [place] [address] | | | SERVICES, CORE | PARK [...] [facility] | [address] | [place] [address] | | | SERVICES, CORE | PARK [...] | + + + + + | [facility] | [address] | [place] [address] | | | SERVICES, CORE | SHANIA [...] [facility] | [address] | [place], [place] | | | [facility] [facility] | [address] | [address] | | | TESTS | | | [...] | | | | cs determined by [facility] | | | | | | laboratories. [...] | + + + + + | [facility] | [address] | [place] [address] | | | PATHOLOGY | [address] [...] [facility] | [address] | [place], [place] | | | [facility] [facility] | [address] | [address] | | | TESTS | | | [...] [facility] | [address] | [place], [place] | | | [place] [facility] [place] | [address] | [address] | | | TESTS | | | [...] [facility] | [address] | [place], [place] | | | [facility] PO[facility] CARE | [address] | [address] | | | TESTS | | | [...] [facility] | [address] | [place], [place] | | | [facility] | [address] | [address] | | | TESTS | | | [...] [facility] | [address] | [place] [address] | | | SERVICES, CORE | PARK [...] | | | LABORATORY | | | IRAQI | | | SERVICES, | | | [...] the MDRD equation recommended by the | [facility] | | National Kidney Disease [...] | + + + + + | [facility] | [address] | [place] [address] | | | SERVICES, CORE | SHANIA [...] (H) | 60 - 99 mg/dL | [facility] - | | | GLUCOSE, | | [...] [facility] | [address] | [place], [place] | | | [facility] [facility] | [facility] | [address] | | | TESTS | | | [...] [facility] | [address] | [place], [place] | | | [facility] [facility] | [address] | [address] | | | TESTS | | | [...] [facility] | [address] | [place] [address] | | | SERVICES, CORE | PARK [...] | | | LABORATORY | | | IRAQI | | | SERVICES, | | | [...] the MDRD equation recommended by the | [facility] | | National Kidney Disease [...] | + + + + + | [facility] | [address] | [place] [address] | | | CAM WALLS | SHANIA [...] [facility] | [address] | [place], [place] | | | [facility] [facility] | [address] | [address] | | | TESTS | | | [...] [facility] | [address] | [place], [place] | | | [facility] [facility] | [address] | [address] | | | TESTS | | | [...] + + | [facility] | [address] | [place], [place] | | | [facility] [facility] | [address] | [address] | | | TESTS | | | [...] an | | | | | | [id number] 109 | | | | | | [...] | | + +---------+ + + | [facility] DEPARTMENT OF | | | | | [...] (H) | 60 - 99 mg/dL | [facility] - | | | GLUCOSE, | | [...] [facility] | [address] | [place], [place] | | | SREE POINT OF CARE | [address] | [address] | | | TESTS | | | [...] [facility] | [address] | [place] [address] | | | CAM WALLS | SHANIA [...] | | | LABORATORY | | | IRAQI | | | SERVICES, | | | [...] | + + + + + | [facility] | [address] | [place] [address] | | | SERVICES, CORE | SHANIA [...] [facility] | [address] | [place], [place] | | | [facility] [facility] | [address] | [address] | | | TESTS | | | [...] [facility] | [address] | [place], [place] | | | [facility]REE [facility] | [address] | [address] | | | TESTS | | | [...] | + + + + + | [facility] | [address] | [place] [address] | | | SERVICES, CAM | SHANIA [...] | | | LABORATORY | | | IRAQI | | | SERVICES, | | | [...] | + + + + + | [facility] | [address] | [place] [address] | | | SERVICES, CORE | SHANIA [...] | | | | | radiologist. A advance scout | | | | | | film demonstrated a 12 | | | | | | German Dobbhoff | | | | | | [...] | | | | a 12 Fr xdz-pisrledk-ukv | | | | | | Doppler [...] [facility] | [address] | [place], [place] | | | SREE POINT OF CARE | [address] | [address] | | | TESTS | | | [...] | + + + + + | [facility] | [address] | [place] [address] | | | SERVICES, CORE | SHANIA [...] | | | LABORATORY | | | IRAQI | | | SERVICES, | | | [...] | + + + + + | [facility] | [address] | [place] [address] | | | SERVICES, CORE | SHANIA [...] [facility] | [address] | [place], [place] | | | [place] [facility] [place] | [address] | [address] | | | TESTS | | | [...] [facility] | [address] | [place], [place] | | | [facility] [facility] | [address] | [address] | | | TESTS | | | [...] [facility] | [address] | [place] [address] | | | SERVICES, CORE | PARK [...] | | | LABORATORY | | | IRAQI | | | SERVICES, | | | [...] the MDRD equation recommended by the | [facility] | | National Kidney Disease Education Program. [...] | + + + + + | [facility] | [address] | [place] [address] | | | SERVICES, CAM | SHANIA [...] | | + +---------+ + + | [facility] DEPARTMENT OF | | | | | [...] [facility] | [address] | [place], [place] | | | SREE POINT OF CARE | [address] | [address] | | | TESTS | | | [...] [facility] | [address] | [place] [address] | | | SERVICES, CORE | PARK [...] | | | LABORATORY | | | IRAQI | | | SERVICES, | | | [...] | + + + + + | [facility] | [address] | [place] [address] | | | SERVICES, CORE | SHANIA [...] [facility] | [address] | [place], [place] | | | [place] [facility] [place] | [address] | [address] | | | TESTS | | | [...] [facility] | [address] | [place] [address] | | | SERVICES, CORE | PARK [...] [facility] | [address] | [place] [address] | | | SERVICES, CORE | PARK [...] | | | LABORATORY | | | IRAQI | | | SERVICES, | | | [...] the MDRD equation recommended by the | [facility] | | National Kidney Disease [...] | + + + + + | [facility] | [address] | [place] [address] | | | CAM WALLS | SHANIA [...] (H) | 60 - 99 mg/dL | [facility] - | | | GLUCOSE, | | [...] | [facility] | [address] | [place], [place] | | | [facility] | [address] | [address] | | | TESTS | | | [...] | + + + + + | [facility] | [address] | [place] [address] | | | SERVICES, CORE | PARK [...] | + + + + + | [facility] | [address] | [place] [address] | | | CAM [place] | [address] | | | + + + + + CAPILLARY BLOOD GLUCOSE (NO CHG), POC (07/24/2016 12:24 AM PST) + +-------+ + + + | Component | Value | Ref Range | Performed | Pathologist | | | | | At | Signature | + +-------+ + + + | BLOOD | 98 | 60 - 99 mg/dL | [facility] - | | | GLUCOSE, | | [...] [facility] | [address] | [place], [place] | | | [facility] | [address] | [address] | | | TESTS | | | [...] | + + + + + | [facility] | [address] | [place] [address] | | | SERVICES, CAM | PARK [...] | | | LABORATORY | | | IRAQI | | | SERVICES, | | | [...] | + + + + + | [facility] | [address] | [place] [address] | | | SERVICES, CORE | SHANIA [...] [facility] | [address] | [place], [place] | | | [facility] | [address] | [address] | | | TESTS | | | [...] | | | | | | FINDINGS: Graphics Programmer KUB: The | | | | | [...] | | + +---------+ + + | [facility] DEPARTMENT OF | | | | | RADIOLOGY | | | | + +---------+ + + X-RAY PORTABLE CHEST 1 VIEW (07/23/2016 3:10 PM PST) + + + + + + | Component | Value | Ref Range | Performed | Pathologist | | | | | At | Signature | + + + + + + | X-RAY | EXAM: MD CHEST 1 VIEW | | | | [...] | | + +---------+ + + | [facility] DEPARTMENT OF | | | | | [...] Note Indications:TPN Procedure location: | | | Unit:[facility] Room: 54 Providers: Attending name: Attending | [...] vein. Catheter lot number: | | | [id number] with a length of 55 cm was [...] [facility] | [address] | [place] [address] | | | SERVICES, CORE | PARK [...] | + + + + + | [facility] | [address] | [place] [address] | | | SERVICES, CORE | [address] | | | + + + + + MAGNESIUM, PLASMA (07/23/2016 10:33 AM PST) + +-------+ + + + | Component | Value | Ref Range | Performed | Pathologist | | | | | At | Signature | + +-------+ + + + | MAGNESIUM,P | 2.5 | 1.8 - 2.5 mg/dL | [facility] | | | JUSTENMA | | | [...] | + + + + + | [facility] | [address] | [place] [address] | | | SERVICES, CORE | SHANIA [...] [facility] | [address] | [place] [address] | | | SERVICES, CORE | PARK [...] | | | LABORATORY | | | IRAQI | | | SERVICES, | | | [...] + + + + + | [facility] | [address] | [place] [address] | | | SERVICES, CORE | SHANIA [...] | + + + + + | [facility] | [address] | [place] [address] | | | SERVICES, CORE | SHANIA [...] + | [facility] - | [address] | [place] [address] | | | [place] | | | | + + + [...] [facility] | [address] | [place] [address] | | | SERVICES, CORE | [address] | | | + + + + + MAGNESIUM, PLASMA (07/22/2016 7:11 AM PST) + +---------+ + + + | Component | Value | Ref Range | Performed | Pathologist | | | | | At | Signature | + +---------+ + + + | MAGNESIUM,P | 1.7 (L) | 1.8 - 2.5 mg/dL | [facility] | | | LASMA | | | [...] | + + + + + | [facility] | [address] | [place] [address] | | | SERVICES, CORE | SHANIA [...] | | | LABORATORY | | | IRAQI | | | SERVICES, | | | [...] + + + + + | [facility] | [address] | [place] [address] | | | SERVICES, CORE | PARK [...] 5:14 | | | | | Starting [facility] 07/29/16 at 1715, | | PM PST | | | | | Until 07/29/16 at 1714 | | | | | | + +-------+ +--------+---+---+ +---+---+ | | | +---+---+ + +-------+ +--------+---+---+ | fentaNYL (SUBLIMAZE) injection | Given | 07/31/19 | 50 mcg | | | | intravenous, INTRAPROCEDURE PRN, | | 17 1:41 | | | | | Starting [facility] 07/31/16 at 1341, | | PM PST | | | | | Until [facility] 07/31/16 at 1341 | | | | [...] | | | | | 1 dose, [facility] 07/24/16 at 2045 | | | | [...] PST | | | | | dose, [facility] 07/31/16 at 0945 | | | | [...] PST | | | | | Starting [facility] 07/31/16 at 1337, | | | | [...]
--- OUTSIDE RECORDS SUMMARY | ~2019-12-15 | XMS | Encounter Summary ---
Demographics + + + | Address | [address] | | | [place] [address] | + + + | Home Phone [...] + + | Author | [facility] | + + + | Organization | [facility] [facility] | + + + | Address | Unknown | + + + | Phone | Unavailable | + + + Support + + + + + | Name | Relationship | Address | Phone | + + + + + | Yennifer Batista | ECON | [address] | | | | | [place] | | | | | [address] | | + + + + + Care Team Providers + +------+ + | Care Cylinder Machine Operator Name | Role | Phone [...] Visit | Medicine Clinic at | R, CAD DESIGN ENGINEER [address] [facility] | (Primary Dx); GERD | | | | [facility] 4th Floor [address] | (gastroesophageal | | | | [address] | [place], [place] | reflux disease); | | | | Mailcode: [facility] | [address] | Depression; | | | | [place] [facility] | [phone] | Irregular heart | | | | and Healing, | | beat; Lower back | | | | Building 1,4th Floor | | pain; Adrenal mass | | | | [place], [place] | | ([facility]) | | | | [address] | | | | | | [phone] | | | +--------+---------+ + + + [...] radial | Wesly Sellers MD | Della cM, | | Yehuda | | | JARROD [...] after surgery. Surgery Check in Locations Admitting [facility], ninth floor lob Surgery Check in Time: [...] it is after office hours, call the [facility] pantograph machine operator at [phone] and ask them to page him or [...] santoyo for above procedure. Last seen in [facility] on 03/21/2014 for pre-op evaluation for [...] Surgical History Procedure Date Jaw surgery 1986 [facility] Cyst removal-leg 1993 Lower leg Family History Problem Relation Anesthesia Neg Hx Heart Disease Father OR age 40's History Substance Use Topics Smoking [...] Date RATE 84 03/21/2014 ATRIALRATE 83 03/21/2014 CA 164 03/21/2014 QRS 78 03/21/2014 QT 372 [...] further investigation and manageme nt. A. Acute OR within 7 days: no B. Unstable angina/Recent OR (7- 30 days): no C. Decompensated CHF: [...] no Rate of cardiac , non fatal OR, non fatal cardiac arrest (RCRI) 0 risk [...] to this patient's care. BASILIA ALMEIDA NP [facility] PREOPERATIVE MEDICINE CLINIC AT [facility] 4TH FLOOR [address] [facility] [address] I counseled the patient regarding [...] + +--------+ + + | COMMUNICATION TO [facility] | Procedures | Routin | Preop [...] | CA COLLECTION VENOUS | Routin | 08/04/2014 | [...] 4.0 - 5.7 % | [facility], | | | A1C,POC | | | [...] | [facility] | [address] | [place] [address] | | | OF CARE TESTS | [...] [facility] | [address] | [place] [address] | | | SERVICES, | [address] [...] | + + + + + | [facility] | [address] | [place] [address] | | | SERVICES, | [address] [...] [facility] | [address] | [place] [address] | | | SERVICES, CORE | PARK [...] [facility] | [address] | [place] [address] | | | SERVICES, CORE | PARK [...] the MDRD equation recommended by the | [facility] | | National Kidney Disease Education Program. [...] + + | [facility] | [address] | [place] [address] | | | CAM WALLS | [address]LLEN [...]
--- OUTSIDE RECORDS SUMMARY | ~2019-12-15 | XMS | Encounter Summary ---
Demographics + + + | Address | [address] | | | [place] [address] | + + + | Home Phone [...] + + | Author | [facility] | + + + | Organization | [facility] [employer] [facility] | + + + | Address | Unknown | + + + | Phone | Unavailable | + + + Support + + + + + | Name | Relationship | Address | Phone | + + + + + | Yennifer Batista | ECON | [address] | | | | | [place] | | | | | [address] | | + + + + + Care Team Providers + +------+ + | Care Pushcart Peddler Name | Role | Phone | + [...] | | | | UNIT: EGD | [place], [place] | and Healing, | | | | | [place] UPPER GI | [address] | Building 2 | | | | | ENDOSCOPY,BI | Phone: | [place], [place] | | | | | OPSY [place] UP | [phone] | [address] | | | | | GI | Fax: | Phone: | | | | | ENDOSCOPY,BA | [phone] | [phone] | | | | | LL DIL,30MM | | Fax: | | | | | [place] UPPER GI | | [phone] | | | | | | | | | | | | ENDOSCOPY,LI | | | | | | | GAT VARIX | | | +--------+--------+ + + + + Encounter Details +--------+ + + + + | Date | Type | Department | Care Team | Description | +--------+ + + + + | 08/11/ | Waste Baler | Digestive Health | Frederic Kohler | Esophageal stricture | | 2017 | | [place] at [facility] [address] | MD Kiesha,MPH [address] | (Primary Dx) | | | | [address] | [address] | | | | | Mailcode: OC8D | [place] [address] | | | | | [facility] | [phone] | | | | | and Healing, | | | | | | Building 2 | | | | | | [place], [place] | | | | | | [address] | | | | | | [phone] | | | +--------+ + + + [...]
--- OUTSIDE RECORDS SUMMARY | ~2019-12-15 | XMS | Encounter Summary ---
Demographics + + + | Address | [address] | | | [place] [address] | + + + | Home Phone [...] + | Author | [facility] | + + + | Organization | [facility] | + + + | Address | Unknown | + + + | Phone | Unavailable | + + + Support + + + + + | Name | Relationship | Address | Phone | + + + + + | Yennifer Batista | ECON | [address] | | | | | [place] | | | | | [address] | | + + + + + Care Team Providers + +------+ + | Care Human Resources Advisor Name | Role | Phone | + +------+ + | Sujatha Sullivan | PCP | | | MISSILE PAD MECHANIC | | | + +------+ + Reason for Visit Diagnostic Testing (Routine) +--------+--------+ + + + + | Status | Reason | Specialty | Diagnoses / | Referred By | Referred To | | | | | Procedures | Contact | Contact | +--------+--------+ + + + + | Closed | | Cardiology | Diagnoses | Holly, | Car Echo | | | | | Preop | Adriana Restrepo, | [facility] [address] | | | | | cardiovascul | PA-C [address] | | | | | ar exam | [address] | [place] | | | | | Arrhythmia | [place], [place] | [place] | | | | | [place] (dyspnea | [address] | Building, 2nd | | | | | on | Phone: | floor | | | | | exertion) | [phone] | [place], [place] | | | | | Procedures | Fax: | [address] | | | | | STRESS | [phone] | Phone: | | | | | ECHOCARDIOGR | | [phone] | | | | | AM, CONVERT | | | | | | | DOBUTAMINE | | | | | | | PRN | | | +--------+--------+ + + + + Encounter Details +--------+ + + + + | Date | Type | Department | Care Team | Description | +--------+ + + + + | 06/07/ | Hospital | Cardiac | | | | 2014 | Encounter | Non-Invasive Testing | | | | | | at [facility] [address] | | | | | [address] Mailcode: CH9A | | | | | | [facility] | | | | | | and Healing, | | | | | | Building 1 | | | | | | [place], [place] | | | | | | [address] | | | | | | [phone] | | | +--------+ + + + [...] documented as of this encounter Progress Notes Meghana Gardner - 06/07/2014 2:58 PM PSTStress echocardiogram completed. Final report to follow. Nessa Herrera RN - 05/20 2:52 PM PSTAt 1413, prior to the beginning of the procedure, the team paused to veri fy the patient s identity, the procedure to be performed (in accordance with the consent,) and the correct side/site. The patient was positioned appropriately. All relevant images an d results were properly labeled and displayed. Any safety precautions were addressed. documented in this enc ounter Plan of [...] dyspnea and respiratory abnormality | + + documented in this encounter Administered Medications + +---------+ +--------+------+------+ | Medication Order | MAR | Action | Dose | Rate | Site | | | Action | Date | | | | + +---------+ +--------+------+------+ | perflutren lipid microspheres | New Bag | 06/07/20 | 1.5 mL | | | | (DEFINITY) injection 1.5 mL 1.5 | | 14 2:00 | | | | | mL, intravenous, INTRAPROCEDURE | | PM PST | | | | | PRN, Starting 06/07/14 at | | | | | | | 1453, Until Liliana 06/08/14 at 0620, | | | | | | | image acquisition | | | | | | + +---------+ +--------+------+------+ +---+---+ | | | +---+---+ documented in this encounter"
--- OUTSIDE RECORDS SUMMARY | ~2019-12-15 | XMS | Encounter Summary ---
Demographics + + + | Address | [address] | | | [place] [address] | + + + | Home Phone [...] | [facility] | + + + | Organization | [facility] [facility] | + + + | Address | Unknown | + + + | Phone | Unavailable | + + + Support + + + + + | Name | Relationship | Address | Phone | + + + + + | Yennifer Segovia | ECON | [address] | | | | | [place] | | | | | [address] | | + + + + + Care Team Providers + +------+ + | Care Pattern Illustrator Name | Role | Phone | + [...] | | SW Juliette Jauregui | [address] [place] [address] | ADRENALECTOMY | | | | Yves [facility] | [place] [address] | | | | | Hospital Admitting | [phone] | | | | | Desk Located on the | | | | | | 9th floor | | | | | | [place], [place] | | | | | | [address] | | | +--------+---------+ + + + [...] can cause constipation, so you may take jnbp-xeu-pzbdled stool softeners (Senok ot-S, Miralax, Colace) following [...] Physician: Theresa Beyer MD Patient: COREEN SEGOVIA [id number] 24H events/Subjective: МАРИНА overnight. Emesis x1 yesterday [...] Theresa Beyer MD. PATRICIA PATTERSON MD [facility] 4A [address] [facility] [address] [place] [address] Zay Sherman MD - 08/20/2014 4:54 AM PST Urology Progress Note Hospital Day: 3 Author: ZAY HERNANDEZ MD Attending Physician: Theresa Beyer MD Patient: COREEN SEGOVIA [id number] 24H events/Subjective: No acute events overnight. Pain [...] Resident - R5 Department of Urology Pager #[phone] ay Hernandez MD - 08/19/2014 7:49 AM PST Urology Progress Note Hospital Day: 2 Author: PATRICIA PATTERSON MD Attending Physician: Theresa Beyer MD Patient: COREEN SEGOVIA [id number] 24H events/Subjective: МАРИНА overnight. Pain is adequately [...] Caitlin Falk NP Adult Pain Service Pager [phone] Team Pager [phone] Caitlin Jiménez NP - 08/18/2014 8:02 AM [...] and summary of old medical records (source: [employer]), as summarized in the body of the note. CAITLIN FALK NP BILLING INFORMATION [facility] DEPARTMENT: [id number] Place of Service:- Inpatient Date of Service: 08/18/2014 CSN: [id number] Suggested Modifier: None Suggested CPT: 64739 - Daily mgmt epidural/subarachnoid drug administration Prolonged service: n/a Counseling and Coordination: n/a Patricia Chappell MD - 08/18/2014 6:46 AM PST Urology Progress Note Hospital Day: 1 Author: PATRICIA PATTERSON MD Attending Physician: Theresa Beyer MD Patient: COREEN ALDANA [facility] [id number] 24H events/Subjective: Tachycardic overnight asymptomatic otherwise >> [...] Theresa Beyer MD. PATRICIA PATTERSON MD [facility] [address]A [address] [place], [place] [id number] Zay Sherman MD - 08/17/2014 10:44 AM PST [facility] PRE-OPERATIVE HISTORY & PHYSICAL EXAM CHIEF [...] History Procedure Laterality Date Jaw surgery 1986 [facility] Cyst removal-leg Right 1993 Lower leg CURRENT [...] Resident - R5 Department of Urology Pager #[phone] documented in this encounter Plan of Treatment [...] | + + + + + | [facility] | [address] | [place] [address] | | | SERVICES, CORE | PARK [...] [facility] | [address] | [place] [address] | | | CAM WALLS | ELLEN [...] [facility] | [address] | [place] [address] | | | SERVICES, CORE | PARK [...] | | | LABORATORY | | | LITHUANIAN | | | SERVICES, | | | [...] the MDRD equation recommended by the | [facility] | | National Kidney Disease Education Program. [...] + + + + + | [facility] | [address] | [place] [address] | | | CAM WALLS | ELLEN [...] | + + + + + | [facility] | [address] | [place] [address] | | | SERVICES, CORE | ELLEN [...] [facility] | [address] | [place] [address] | | | SERVICES, CORE | PARK [...] [facility] | [address] | [place] [address] | | | SERVICES, CORE | PARK [...] | | | LABORATORY | | | LITHUANIAN | | | SERVICES, | | | [...] MDRD equation recommended by the | [facility] | | National Kidney Disease Education Program. Estimated GFR | LABORATORY | | Interpretive Information: <60 mL/min/1.73 sq m | [facility], CORE | | Chronic Kidney Disease <15 [...] + + + + + | [facility] | [address] | [place] [address] | | | SERVICES, CORE | PARK [...] + + + + + | [facility] | [address] | [place] [address] | | | SERVICES, CORE | PARK [...] + + + + + | [facility] | [address] | [place] [address] | | | SERVICES, CORE | PARK [...] | 1.8 - 2.5 mg/dL | [facility] | | | JUSTENMA | | | LABORATORY | | | | | | KVAITA, | | | | | | CORE | | + +---------+ + + + + + | Specimen | + + | Blood - Blood | + + + + + + + | Performing | Address | City/State/Zipcode | Phone Number | | Organization | | | | + + + + + | [facility] | [address] | [place] [address] | | | SERVICES, CORE | PARK [...] | | | LABORATORY | | | LITHUANIAN | | | SERVICES, | | | [...] MDRD equation recommended by the | [facility] | | National Kidney Disease Education [...] [facility] | [address] | [place] [address] | | | SERVICES, CORE | PARK [...] [facility] | [address] | [place] [address] | | | SERVICES, CORE | PARK [...] | | | LABORATORY | | | LITHUANIAN | | | SERVICES, | | | [...] | + + + + + | [facility] | [address] | [place] [address] | | | SERVICES, CORE | ELLEN [...] [facility] | [address] | [place] [address] | | | SERVICES, CORE | PARK [...] [facility] | [address] | [place] [address] | | | SERVICES, CORE | PARK [...] [facility] | [address] | [place] [address] | | | SERVICES, CORE | ELLEN [...] [facility] | [address] | [place] [address] | | | SERVICES, CORE | PARK [...] | + + + + + | [facility] | [address] | [place] [address] | | | SERVICES, CORE | ELLEN [...] | | | LABORATORY | | | LITHUANIAN | | | SERVICES, | | | [...] [facility] | [address] | [place] [address] | | | SERVICES, CORE | PARK [...] | + + + + + | [facility] | [address] | [place] [address] | | | SERVICES, CAM | ELLEN [...] + + + + + | [facility] | [address] | [place] [address] | | | CAM WALLS | ELLEN [...] | | | LABORATORY | | | LITHUANIAN | | | SERVICES, | | | [...] | + + + + + | [facility] | [address] | [place] [address] | | | SERVICES, [facility] | [address] | | | + [...] | + + + + + | [facility] | [address] | [place] [address] | | | SERVICES, CAM | ELLEN [...] + + + + + + | [facility]TC-BAKARLIE | 396 | ms | [facility] [...] | Procedure Note | + + | Rohit Faculty - 08/18/2014 2:24 PM PST | + + + + + + + | Performing | Address | City/State/Zipcode | Phone Number | | Organization | | | | + + + + + | [facility] | [address] | [place], [place] | | | CARDIOLOGY | [address] | [address] | | + + + + + LACTATE (ART)HARDEEP (08/17/2014 11:56 AM PST) + +-------+ + [...] GON[facility]ALE[facility] | [address] | [place], [place] | | | [facility] [place] [facility] CARE | [address] | [address] | | | TESTS | | | [...] [facility] | [address] | [place], [place] | | | [place] OF [place] | [address] | [address] | | | TESTS | | | [...] | [facility] | [address] | [place], [place] | | | [facility] [facility] CARE | [address] | [address] | | | TESTS | | | [...] GON[facility] | [address] | [place], [place] | | | [facility] [facility] CARE | [facility] | [address] | | | TESTS | | | [...] | | | POC | | | [facility] | | | | | | ARUN [...] CAR[facility] | [address] | [place], [place] | | | [facility] [place] [facility] CARE | [address] | [address] | | | TESTS | | | [...] - [facility] | [address] | [place], [place] | | | [facility] | [facility] | [address] | | | TESTS | | | | + + + + + HEMOGLOBIN-COOX POC (08/17/2014 11:56 AM PST) + + [...] + | [facility] | [address] | [place], [place] | | | SREE POINT OF CARE | [address] | [address] | | | TESTS | | | [...] | | | POC | | | SREE, POINT | | | | | | OF CARE | | | | | | TESTS | | + + + + + + | PCO2 | 41 | 32 - 43 mmHg | [facility] - | | | ARTERIAL, | | | [facility] | | | POC | | | SREE POINT | | [...] | | | ZAKIA, | | | [facility] | | | [...] | [facility] | [address] | [place], [place] | | | [facility] [place] [facility] CARE | [address] | [address] | | | TESTS | | | [...] [place], | | | | | | M.DFiorella/Pathologist | | | | | | Clinical [...] Index:A1-3, | | | | | | sales representative printing paper adrenal | | | | | | to massA4-6, | | | | | | sales representative printing paper | | | | | | intracapsular [...] + + + + + | [facility] | [address] | [place] [address] | | | PATHOLOGY | [address] [...]
--- OUTSIDE RECORDS SUMMARY | ~2019-12-15 | XMS | Encounter Summary ---
Demographics + + + | Address | [address] | | | [place] [address] | + + + | Home Phone [...] + + | Author | [facility] | + + + | Organization | [facility] | + + + | Address | Unknown | + + + | Phone | Unavailable | + + + Support + + + + + | Name | Relationship | Address | Phone | + + + + + | Yennifer Batista | ECON | [address] | | | | | [place] | | | | | [address] | | + + + + + Care Team Providers + +------+ + | Care Concrete Analyst Name | Role | Phone | [...] [address] | (06/30/18) | | | | [facility] [address] | [address] [facility], | | | | | [address] | [place] [address] | | | | | [place]abella [place], | [phone] | | | | | 4th floor [place], | | | | | | [place] [address] | | | | | | [phone] | | | +--------+ + + + [...]
--- OUTSIDE RECORDS SUMMARY | ~2019-12-15 | XMS | Encounter Summary ---
Demographics + + + | Address | [address] | | | [place] [address] | + + + | Home Phone [...] + | Author | [facility] | + + + | Organization | [facility] [employer] [facility] | + + + | Address | Unknown | + + + | Phone | Unavailable | + + + Support + + + + + | Name | Relationship | Address | Phone | + + + + + | Yennifer Batista | ECON | [address] | | | | | [place] | | | | | [address] | | + + + + + Care Team Providers + +------+ + | Care It Senior Analyst Name | Role | Phone | [...] | Order | Maged [address] | [place], [place] | | | | | [address] | [address] | | | | | [address], | [phone] | | | | | 4th floor [place], | | | | | | [place] [address] | | | | | | [phone] | | | +--------+ + + + [...] --+ | MRN: | [facility] | | [id number] Date: 06/30/2018Patient Name: Franck Mares #: | ENDOSCOPY | | [id number] of : 1960CSN: [id number] Type: | | | AmbulatoryRoom: GI 3Procedure: ColonoscopyIndications: | | | Screening for colorectal malignant neoplasmProviders: | | | RACHELLE JONES MD (Fellow), JOMAR CONRAD MD | | | (Doctor), CHIVO DONG RN (Nurse), | | | CHERRY MEJIA RN (Nurse), GENECREST | | | GEMINI (Boiler Control Room Operator)Referring MD: DAR DRAKE MDRequesting | | | Provider: Medicines: Monitored [...] physician, the nurse, the | | | frame feeder and the platform power technician. The procedure | | | was [...] portions.JOMAR | | | MD ANAMARIA06/30/2018 4:44:26 PMThis report has been signed | | | electronically.RACHELLE JONES MDNumber of Addenda: 0Note Initiated | | | On: 06/30/2018 3:47 [facility] Letter to: ED LANDIS | | | I was present and participated during the entire procedure, including | | | non-goldman portions. | | |JOMAR CONRAD MD | | |06/30/2018 4:44:26 PM | | |This report has been signed electronically. | | |RACHELLE JONES MD | | |Number of Addenda: 0 | | |Note Initiated On: 06/30/2018 3:47 PM | | | Letter to: | [...] --+ | MRN: | [facility] | | [id number] Date: 06/30/2018Patient Name: Franck Mares #: | ENDOSCOPY | | [id number] of : 1960CSN: [id number] Type: | | | AmbulatoryRoom: GI 3Procedure: [...] physician, | | | the nurse, the frame feeder and the | | | platform power technician. The procedure was verified | | [...] | | | The Olympus [id number] Endoscope #[id number] was introduced | | | through the [...] | On: 06/30/2018 3:45 [facility] Letter to: ED LANDIS | | [...]
--- OUTSIDE RECORDS SUMMARY | ~2019-12-15 | XMS | Encounter Summary ---
Demographics + + + | Address | [address] | | | [place] [address] | + + + | Home Phone [...] Author + + + | Author | [facility] [employer] [facility] | + + + | Organization | [facility] [employer] [facility] | + + + | Address | Unknown | + + + | Phone | Unavailable | + + + Support + + + + + | Name | Relationship | Address | Phone | + + + + + | Yennifer Batista | ECON | [address] | | | | | [place] | | | | | [address] | | + + + + + Care Team Providers + +------+ + | Care Gearcase Assembler Name | Role | Phone | + +------+ + | Leidy Grullon MD | PCP | | + +------+ + Encounter Details +--------+ + + + + | Date | Type | Department | Care Team | Description | +--------+ + + + + | 03/21/ | Abstract | Cardiology | Adriana Holly | | | 2013 | | Preventive at [facility] | RASHI Restrepo [address] | | | | | [address] | [address] [place], | | | | | Mailcode: CH9A | [place] [address] | | | | | [facility] | [phone] | | | | | and [place], | | | | | | [address] | | | | | | [place], [place] | | | | | | [address] | | | | | | [phone] | | | +--------+ + + + [...]
--- OUTSIDE RECORDS SUMMARY | ~2019-12-15 | XMS | Encounter Summary ---
Demographics + + + | Address | [address] | | | [place] [address] | + + + | Home Phone [...] | Author | [facility] | + + + | Organization | [facility] [employer] [facility] | + + + | Address | Unknown | + + + | Phone | Unavailable | + + + Support + + + + + | Name | Relationship | Address | Phone | + + + + + | Yennifer Batista | ECON | [address] | | | | | [place] | | | | | [address] | | + + + + + Care Team Providers + +------+ + | Care Sampler First Name | Role | Phone | + [...] | | | | Hospital Admitting | [place], [place] | | | | | Desk Located on the | [address] | | | | | 9th floor | [phone] | | | | | [place], [place] | | | | | | [address] | | | +--------+ + + + [...] MD | | | | | at [facility] 6A (canceled) | | | [...]
--- OUTSIDE RECORDS SUMMARY | ~2019-12-15 | XMS | Encounter Summary ---
Demographics + + + | Address | [address] | | | [place] [address] | + + + | Home Phone [...] + | Author | [facility] | + + + | Organization | [facility] | + + + | Address | Unknown | + + + | Phone | Unavailable | + + + Support + + + + + | Name | Relationship | Address | Phone | + + + + + | Yennifer Batista | ECON | [address] | | | | | [place] | | | | | [address] | | + + + + + Care Team Providers + +------+ + | Care Household Chores Name | Role | Phone | + +------+ + | Ed Landis MD PCP | | + +------+ + Encounter Details +--------+ + + + + | Date | Type | Department | Care Team | Description | +--------+ + + + + | 08/31/ | Coil Spring Assembler | Urology at [facility] | [place], , | Adrenal mass (HCC) | | 2015 | | [address] | MD [address] | (Primary Dx) | | | | Mailcode: CH10U | [place] [address] | | | | | [facility] | [phone] | | | | | and Healing, | | | | | | Building [address] | | | | | | [place], [place] | | | | | | [address] | | | | | | [phone] | | | +--------+ + + + [...] on filedocumented as of this encounter Results COMPLETE METABOLIC [...] | | | LABORATORY | | | URUGUAYAN | | | SERVICES, | | | [...] + + | Study patient Please page [phone] when the patient arrive at the | [facility] | | lab. GFR is estimated [...] | + + + + + | [facility] | [address] | [place] [address] | | | SERVICES, CORE | [address] | | | + + + + + documented in this encounter Visit Diagnoses + + | Diagnosis | + + | 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"
--- OUTSIDE RECORDS SUMMARY | ~2019-12-15 | XMS | Encounter Summary ---
Demographics + + + | Address | [address] | | | [place] [address] | + + + | Home Phone [...] + | Author | [facility] | + + + | Organization | [facility] [employer] [facility] | + + + | Address | Unknown | + + + | Phone | Unavailable | + + + Support + + + + + | Name | Relationship | Address | Phone | + + + + + | Yennifer Batista | ECON | [address] | | | | | [place] | | | | | [address] | | + + + + + Care Team Providers + +------+ + | Care Flame Hardening Machine Operator Name | Role | Phone | + +------+ + | Ed Landis MD PCP | | + +------+ + Encounter Details +--------+------+ + + + | Date | Type | Department | Care Team | Description | +--------+------+ + + + | 09/01/ | Lab | Laboratory at [facility] | | Adrenal mass (HCC) | | 2014 | | [address] | | | | | | [place], [place] | | | | | | [address] | | | | | | [phone] | | | +--------+------+ + + + [...] LABORATORY | [address] | [place] [address] | | | SERVICES, BATH FOR | | | | | HEALTH [...] | | | LABORATORY | | | MACANESE | | | SERVICES, | | | [...] + + | Study patient Please page [phone] when the patient arrive at the | [...] EVETTE GUNTER | [address] | [place] [address] | | | SERVICES, CORE | [address] | | | + + + + + documented in this encounter Visit Diagnoses + + | Diagnosis | + + | Adrenal mass (HCC) Unspecified disorder of adrenal glands | + + documented in this encounter"
--- OUTSIDE RECORDS SUMMARY | ~2019-12-15 | XMS | Encounter Summary ---
Demographics + + + | Address | [address] | | | [place] [address] | + + + | Home Phone [...] + + + | Author | [facility] | + + + | Organization | [facility] [facility] | + + + | Address | Unknown | + + + | Phone | Unavailable | + + + Support + + + + + | Name | Relationship | Address | Phone | + + + + + | Yennifer Batista | ECON | [address] | | | | | [place] | | | | | [address] | | + + + + + Care Team Providers + +------+ + | Care Bulbs Farmworker Name | Role | Phone | + [...] + + | 06/30/ | Hospital | [facility] [address] | Jomar Conrad MD | | | 2018 | Encounter | [address] | [address] [facility] | | | | | [facility] | [facility] | | | | | [place] | [place] [address] | | | | | ([facility]) | [phone] | | | | | [place], [place] | | | | | | [address] | | | | | | [phone] | | | +--------+ + + + [...] hours or on weekends and holiday Hospital Tree And Shrub Technician toll free [phone] ext. [phone] and have the GI doctor iron installer paged. The provider who performed your procedure: [...] --+ | MRN: | [facility] | | [id number] Date: 06/30/2018Patient Name: Franck Mares #: | ENDOSCOPY | | [id number] of : 1960CSN: [id number] Type: | | | AmbulatoryRoom: GI 3Procedure: ColonoscopyIndications: | | | Screening for colorectal malignant neoplasmProviders: | | | RACHELLE JONES MD (Fellow), JOMAR CONRAD MD | | | (Doctor), CHIVO DONG RN (Nurse), | | | CHERRY MEJIA RN (Nurse), GENECREST | | | GEMINI (Destination Imagination Coordinator)Referring MD: REMIGIO DRAKE, MDRequesting | | | [...] physician, the nurse, the | | | accounting officer and the wind turbine service technician. The procedure | | | was [...] Initiated | | | On: 06/30/2018 3:47 [facility] Letter to: ED LANDIS | | | [...] + + | Performing | Address | City/State[facility] | Phone Number | | Organization | | | | + +---------+ + + | [facility] | | | | + +---------+ + + EGD (06/30/2018 3:45 PM PST) + + | Specimen | + + | | + + + + --+ | Narrative | Performed A t | + + --+ | MRN: | [facility] | | [id number] Date: 06/30/2018Patient Name: Franck Mares #: | ENDOSCOPY | | [id number] of : 1960CSN: [id number] Type: | | | AmbulatoryRoom: GI 3Procedure: [...] physician, | | | the nurse, the accounting officer and the | | | wind turbine service technician. The procedure was verified | | [...] | | | The Olympus [id number] Endoscope #[id number] was introduced | | | through the [...] portions.JOMAR | | | MD ANAMARIA06/30/2018 4:43:02 [facility] | | | electronically.RACHELLE JONES MDNumber of Addenda: 0Note Initiated | | | On: 06/30/2018 3:45 [facility] Letter to: ED LANDIS | | | [...] oral, INTRAPROCEDURE PRN, | | | Starting Thu06/30/18 at 1359, | | | Until Thu06/30/18 at 2356, gas | | | bubbles in endoscope | | + +---+ | | | + +---+ | simethicone (MYLICON) | | | suspension 3.333 mg 3.333 mg | | | (rounded from 3.3333 mg = 1 | | | drop), oral, INTRAPROCEDURE PRN, | | | Starting Thu06/30/18 at 1359, | | | Until Thu06/30/18 at 2356, gas | | | bubbles [...]
--- OUTSIDE RECORDS SUMMARY | ~2019-12-15 | XMS | Encounter Summary ---
Demographics + + + | Address | [address] | | | [place] [address] | + + + | Home Phone [...] Author + + + | Author | [facility] | + + + | Organization | [facility] [facility] | + + + | Address | Unknown | + + + | Phone | Unavailable | + + + Support + + + + + | Name | Relationship | Address | Phone | + + + + + | Yennifer Batista | ECON | [address] | | | | | [place] | | | | | [address] | | + + + + + Care Team Providers + +------+ + | Care Dry Roaster Name | Role | Phone | + [...] [id number] | | | | | | [facility] | | | | | | [address] [place], [place] | | | | | | [address] | | | | | | [phone] | | | +--------+ + + + [...] RN | | IV | Positive; 06/30/18; 0600; | | | | | Discharge | [...] perfume, lotions or powder. Remove any nail somali from at least one fingernail. Do not [...] Time: Someone from your surgeon's office or [facility] will provide you with information regarding your [...] it is after office hours, call the [facility] tanning wheel operator at [phone] and ask them to page your doc tor. documented in this encounter Plan of Treatment Not on filedocumented as of this encounter Visit Diagnoses Not on filedocumented in this encounter"
--- OUTSIDE RECORDS SUMMARY | ~2019-12-15 | XMS | Encounter Summary ---
Demographics + + + | Address | [address] | | | [place] [address] | + + + | Home Phone | | + + + | Preferred Language | Unknown | + + + | Marital Status | Single | + + + | Religion Affiliation | ZEFERINO | + + + | Race | or | + + + | Ethnic Group | Not or | + + + Author + + + | Author | [facility] | + + + | Organization | [facility] [facility] | + + + | Address | Unknown | + + + | Phone | Unavailable | + + + Support + + + + + | Name | Relationship | Address | Phone | + + + + + | Yennifer Batista | ECON | [address] | | | | | [place] | | | | | [address] | | + + + + + Care Team Providers + +------+ + | Care Marketing Information Analyst Name | Role | Phone | [...] | | | [address] | [facility] [place] | | | | | [place], | [address] | | | | | 4th floor [place], | [phone] | | | | | [place] [address] | | | | | | [phone] | Julian Obregon, | | | | | | DO [address] | | | | | | [address] | | | | | | [place], [place] | | | | | | [address] | | | | | | [phone] | | | | | | | [...] 18 4:12 | | | | | 18 at 1610, Until Wed | | PM PST | | | | | 18 at 1634 | | | | | | + +-------+ +-------+---+---+ +-------+ +-------+---+---+ | Given | 06/30/20 | 20 mg | | | | | 18 4:10 | | | | | | PM PST | | | | +-------+ +-------+---+---+ | Given | 20 | 20 mg | | | | | 18 4:08 | | | | | | PM PST | | | | +-------+ +-------+---+---+ +---+---+ | | | +---+---+ + + + +---+---+---+ | sodium chloride 0.9 % (NS) IV | given by | 20 | | | | | infusion INTRAPROCEDURE | | 18 4:28 | | | | | CONTINUOUS PRN, Starting Wed | anesthes | PM PST | | | | | 18 at 1602, Until Wed | iology | [...]
--- OUTSIDE RECORDS SUMMARY | ~2019-12-15 | XMS | Encounter Summary ---
Demographics + + + | Address | [address] | | | [place] [address] | + + + | Home Phone [...] + + + | Author | [facility] | + + + | Organization | [facility] [employer] [facility] | + + + | Address | Unknown | + + + | Phone | Unavailable | + + + Support + + + + + | Name | Relationship | Address | Phone | + + + + + | Yennifer Batista | ECON | [address] | | | | | [place] | | | | | [address] | | + + + + + Care Team Providers + +------+ + | Care Tire Setter Name | Role | Phone | + [...] | 2017 | on | Center at [facility] [address] | [address] | | | | | [address] | [place], [place] | | | | | Mailcode: [place] | [address] | | | | | [facility] | [phone] | | | | | [facility] [address] | | | | | | [place], [place] | | | | | | [address] | | | | | | [phone] | | | +--------+ + + + [...]
--- OUTSIDE RECORDS SUMMARY | ~2019-12-15 | XMS | Encounter Summary ---
Demographics + + + | Address | [address] | | | [place] [address] | + + + | Home Phone [...] + | Author | [facility] | + + + | Organization | [facility] [employer] [facility] | + + + | Address | Unknown | + + + | Phone | Unavailable | + + + Support + + + + + | Name | Relationship | Address | Phone | + + + + + | Yennifer Batista | ECON | [address] | | | | | [place] | | | | | [address] | | + + + + + Care Team Providers + +------+ + | Care Resizer Operator Name | Role | Phone | [...] | Event | Procedural Unit at | [facility] [place] | | | | | [address] | [address] | | | | | [address] | | | | | | [place], | | | | | | 4th floor [place], | | | | | | [place] [address] | | | | | | [phone] | | | +--------+ + + + [...]
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
--- OUTSIDE RECORDS SUMMARY | ~2019-12-15 | XMS | Encounter Summary ---
Demographics + + + | Address | [address] | | | [place] [address] | + + + | Home Phone [...] + | Author | [facility] | + + + | Organization | [facility] [employer] [facility] | + + + | Address | Unknown | + + + | Phone | Unavailable | + + + Support + + + + + | Name | Relationship | Address | Phone | + + + + + | Yennifer Batista | ECON | [address] | | | | | [place] | | | | | [address] | | + + + + + Care Team Providers + +------+ + | Care Parachute Manufacturing Supervisor Name | Role | Phone | + +------+ + | Sujatha Sullivan | PCP | | | ETIQUETTE COACH | | | + +------+ + Encounter Details +--------+ + + + + | Date | Type | Department | Care Team | Description | +--------+ + + + + | 06/09/ | Abstract | Cardiology | Unknown . | | | 2013 | | Preventive at [facility] | | | | | | [address] | | | | | | Mailcode: CH9A | | | | | | [facility] | | | | | | and Healing, | | | | | | [address] | | | | | | [place], [place] | | | | | | [address] | | | | | | [phone] | | | +--------+ + + + [...]
--- OUTSIDE RECORDS SUMMARY | ~2019-12-15 | XMS | Encounter Summary ---
Demographics + + + | Address | [address] | | | [place] [address] | + + + | Home Phone [...] + | Author | [facility] | + + + | Organization | [facility] [facility] | + + + | Address | Unknown | + + + | Phone | Unavailable | + + + Support + + + + + | Name | Relationship | Address | Phone | + + + + + | Yennifer Batista | ECON | [address] | | | | | [place] | | | | | [address] | | + + + + + Care Team Providers + +------+ + | Care Wheat Cleaner Name | Role | Phone | + +------+ + | Ed Landis MD PCP | | + +------+ + Encounter Details +--------+ + + + + | Date | Type | Department | Care Team | Description | +--------+ + + + + | 01/22/ | Inside | [facility] | Daksha Childs, | | | 2018 | Referral | [facility] [address] | [address] | | | | Order | [address] Mailcode: | [place] | | | | | OC2L [place] for | [place], [place] | | | | | Health and Healing, | [address] | | | | | [place] [address] | [phone] | | | | | [place], [place] | | | | | | [address] | | | | | | [phone] | | | +--------+ + + + [...] + | MRN: | [facility] | | [id number] Date: 02/17/2018Patient Name: Franck Mares #: | ENDOSCOPY | | [id number] of : 1960CSN: [id number] Type: | | | [facility]Procedure: Upper GI | | | endoscopyIndications: DysphagiaProviders: | | | REMIGIO DRAKE MD (Doctor), OLIVER GOMEZ RN (Nurse), | | | TYE GLYNN (Air Compressor Mechanic), SANDRA MORALES, Air Compressor Mechanic | | | (Air Compressor Mechanic)Referring MD: | | | DAKSHA CHILDS MDRequesting [...] | | | The Olympus GIF-[id number] Gastroscope #[id number] was | | | introduced through the [...]
--- OUTSIDE RECORDS SUMMARY | ~2019-12-15 | XMS | Encounter Summary ---
Demographics + + + | Address | [address] | | | [place] [address] | + + + | Home Phone [...] Author | [facility] [facility] | + + + | Organization | [facility] [employer] [facility] | + + + | Address | Unknown | + + + | Phone | Unavailable | + + + Support + + + + + | Name | Relationship | Address | Phone | + + + + + | Yennifer Batista | ECON | [address] | | | | | [place] | | | | | [address] | | + + + + + Care Team Providers + +------+ + | Care Polisher Balance Screwhead Name | Role | Phone | + [...] | | | | CONSULT TO | [place], [place] | [facility] | | | | | GI | [address] | for Health | | | | | PROCEDURE | Phone: | and Healing, | | | | | UNIT: EGD | [phone] | Building 2 | | | | | OR UPPER GI | Fax: | [place], [place] | | | | | ENDOSCOPY,BI | [phone] | [address] | | | | | OPSY | | Phone: | | | | | | | [phone] | | | | | | | Fax: | | | | | | | [phone] | +--------+--------+ + + + + Reason [...] + + | 09/17/ | Hospital | [facility] PROC[facility]URE | Ricardo Mason MD | | | 2017 | Encounter | [address] | [address] | | | | | Ave Mailcode: [facility] | [place], [place] | | | | | [facility] | [address] | | | | | Health and Healing, | [phone] | | | | | [place] [address] | | | | | | [place], [place] | | | | | | [address] | | | | | | [phone] | | | +--------+ + + + [...] Discharge Instructions Instructions Cherry Tipton RN - 09/17/2016[facility] Instructions after EGD (Upper Endo scopy) [...] hours or on weekends and holiday Hospital Refund Clerk toll free [phone]. [phone] and have the GI doctor mainframe applications developer paged. The provider who performed your procedure [...] be sent through Care Everywhere.BLAND SOFT DIET (PERSIAN)documented in this encounter Medications at Time of [...] 4:27 PM PST PRE PROCEDURE NOTE: MR# [id number] Subjective: Franck Batitsa is a 56 y.o. male presents today [...] -------+ | MRN: | [facility] | | [id number] Date: 09/17/2016Patient Name: Order #: [id number] | ENDOSC OPY | | of : 1960CSN: [id number]: [facility] 2Procedure: | | | Upper [...] The Olympus GIF-HQ190 Gastroscope | | | #[id number] was introduced through the | | | [...]
--- OUTSIDE RECORDS SUMMARY | ~2019-12-15 | XMS | Encounter Summary ---
Demographics + + + | Address | [address] | | | [place] [address] | + + + | Home Phone [...] + | Author | [facility] | + + + | Organization | [facility] | + + + | Address | Unknown | + + + | Phone | Unavailable | + + + Support + + + + + | Name | Relationship | Address | Phone | + + + + + | Yennifer Batista | ECON | [address] | | | | | [place] | | | | | [address] | | + + + + + Care Team Providers + +------+ + | Care Diver Assistant Name | Role | Phone | [...] | | AMBULATORY [address] | | | | | [address] | [place], | | | | | Mailcode: CH6A | [place] [address] | | | | | [place], [place] | | | | | | [address] | | | | | | [phone] | | | +--------+ + + + [...]
--- OUTSIDE RECORDS SUMMARY | ~2019-12-15 | XMS | Encounter Summary ---
Demographics + + + | Address | [address] | | | [place] [address] | + + + | Home Phone [...] + + | Author | [facility] | + + + | Organization | [facility] | + + + | Address | Unknown | + + + | Phone | Unavailable | + + + Support + + + + + | Name | Relationship | Address | Phone | + + + + + | Yennifer Batista | ECON | [address] | | | | | [place] | | | | | [address] | | + + + + + Care Team Providers + +------+ + | Care Audiometrist Name | Role | Phone | + +------+ + | Ed Landis MD PCP | | + +------+ + Encounter Details +--------+ + + + + | Date | Type | Department | Care Team | Description | +--------+ + + + + | 06/02/ | Pharmacy | [facility] | | | | 2013 | Visit | & Healing Pharmacy | | | | | | [address] | | | | | | Mailcode: [place] | | | | | | [facility] Health and | | | | | | Healing, Building [address] | | | | | | | | | | | | [address] | | | | | | [phone] | | | +--------+ + + + [...]
--- OUTSIDE RECORDS SUMMARY | ~2019-12-15 | XMS | Encounter Summary ---
Demographics + + + | Address | [address] | | | [place] [address] | + + + | Home Phone [...] + + | Author | [facility] | + + + | Organization | [facility] | + + + | Address | Unknown | + + + | Phone | Unavailable | + + + Support + + + + + | Name | Relationship | Address | Phone | + + + + + | Yennifer Batista | ECON | [address] | | | | | [place] | | | | | [address] | | + + + + + Care Team Providers + +------+ + | Care Rides Attendant Name | Role | Phone | [...] | 03/23/ | Telephone | Urology at [facility] | Larissa Doe, | Referral Needed | | 2013 | | [address] | Jesus Leiva MD 6 | (Cardiology preop) | | | | Mailcode: CH10U | [facility] | | | | | [facility] | [address] | | | | | and Healing, | [place] [address] | | | | | [facility] | [phone] | | | | | Floor [place], [place] | | | | | | [address] | | | | | | [phone] | | | +--------+ + + + [...]
--- OUTSIDE RECORDS SUMMARY | ~2019-12-15 | XMS | Encounter Summary ---
Demographics + + + | Address | [address] | | | [place] [address] | + + + | Home Phone [...] + + | Author | [facility] | + + + | Organization | [facility] [facility] | + + + | Address | Unknown | + + + | Phone | Unavailable | + + + Support + + + + + | Name | Relationship | Address | Phone | + + + + + | Yennifer Batista | ECON | [address] | | | | | [place] | | | | | [address] | | + + + + + Care Team Providers + +------+ + | Care Child Psychology Teacher Name | Role | Phone | [...] | | | stricture | Ave | [place] | | | | | Gastroesopha | [place], [place] | Pavilion, 4th | | | | | geal reflux | [address] | floor | | | | | disease with | Phone: | [place], [place] | | | | | esophagitis | [phone] | [address] | | | | | | Fax: | Phone: | | | | | Adenomatous | [phone] | [phone] | | | | | polyp of | | Fax: | | | | | ascending | | [phone] | | | | | colon | | | | | | | Procedures | | | | | | | CONSULT TO | | | | | | | GI PROCEDURE | | | | | | | UNIT: EGD W | | | | | | | COLONOSCOPY | | | | | | | MN UPPER | | | | | | | GI | | | | | | | ENDOSCOPY,BI | | | | | | | OPSY MN | | | | | | | COLONOSCOPY, | | | | | | | FLEX, | | | | | | | W/BIOPSY MN | | | | | | | ANES UPR | | | | | | | LWR GI NDSC | | | | | | | PX MN UP GI | | | | | | | | | | | | | | ENDOSCOPY,BA | | | | | | | LL DIL,30MM | | | +--------+--------+ + + + + Encounter Details +--------+ + + + + | Date | Type | Department | Care Team | Description | +--------+ + + + + | 02/17/ | Department Director | Digestive Health | Dar Dalton MD | 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
--- OUTSIDE RECORDS SUMMARY | ~2019-12-15 | XMS | Encounter Summary ---
Demographics + + + | Address | [address] | | | [place] [address] | + + + | Home Phone | | + + + | Preferred Language | Unknown | + + + | Marital Status | Single | + + + | Faith Affiliation | ZEFERINO | + + + | Race | or | + + + | Ethnic Group | Not or | + + + Author + + + | Author | [email or web address] | + + + | Organization | [facility] [employer] [facility] | + + + | Address | Unknown | + + + | Phone | Unavailable | + + + Support + + + + + | Name | Relationship | Address | Phone | + + + + + | Yennifer Segovia | ECON | [address] | | | | | [place] | | | | | [address] | | + + + + + Care Team Providers + +------+ + | Care Direct Support Specialist Name | Role | Phone | [...] | | [address] | [address] [place] [address] | ADRENALECTOMY | | | | [facility] | [place] [address] | | | | | Hospital Admitting | [phone] | | | | | Desk Located on the | | | | | | 9th floor | | | | | | [place], [place] | | | | | | [address] | | | +--------+---------+ + + + [...] can cause constipation, so you may take nuxe-jxw-myoignr stool softeners (Senok ot-S, Miralax, Colace) following [...] Physician: Theresa Beyer MD Patient: COREEN SEGOVIA [id number] 24H events/Subjective: МАРИНА overnight. Emesis x1 yesterday [...] is Theresa Beyer MD. PATRICIA PATTERSON MD [facility] 4A [address] 12[address]s31 [place] [address] Zay Sherman MD - 08/20/2014 4:54 AM PST Urology Progress Note Hospital Day: 3 Author: ZAY HERNANDEZ MD Attending Physician: Theresa Beyer MD Patient: COREEN SEGOVIA [id number] 24H events/Subjective: No acute events overnight. Pain [...] Resident - R5 Department of Urology Pager #[phone] ay Hernandez MD - 08/19/2014 7:49 AM PST Urology Progress Note Hospital Day: 2 Author: PATRICIA PATTERSON MD Attending Physician: Theresa Beyer MD Patient: COREEN SEGOVIA [id number] 24H events/Subjective: МАРИНА overnight. Pain is adequately [...] Caitlin Falk NP Adult Pain Service Pager [phone] Team Pager [phone] Caitlin Jiménez NP - 08/18/2014 8:02 AM [...] and summary of old medical records (source: [employer]), as summarized in the body of the note. CAITLIN FALK NP BILLING INFORMATION [facility] DEPARTMENT: [id number] Place of Service:- Inpatient Date of Service: 08/18/2014 CSN: [id number] Suggested Modifier: None Suggested CPT: 71686 - Daily mgmt epidural/subarachnoid drug administration Prolonged service: n/a Counseling and Coordination: n/a Patricia Chappell MD - 08/18/2014 6:46 AM PST Urology Progress Note Hospital Day: 1 Author: PATRICIA PATTERSON MD Attending Physician: Theresa Beyer MD Patient: COREEN ALDANA [facility] [id number] 24H events/Subjective: Tachycardic overnight asymptomatic otherwise >> [...] is Theresa Beyer MD. PATRICIA PATTERSON MD [facility] 4A [address] [place], [place] [id number] Zay Sherman MD - 08/17/2014 10:44 AM PST [facility] UR[facility]Y PRE-OPERATIVE HISTORY & PHYSICAL EXAM CHIEF [...] History Procedure Laterality Date Jaw surgery 1986 [facility] Cyst removal-leg Right 1993 Lower [...] Resident - R5 Department of Urology Pager #[phone] documented in this encounter Plan of Treatment [...] | + + + + + | [facility] | [address] | [place] [address] | | | SERVICES, CORE | PARK [...] LABORATORY | [address] | [place] [address] | | | CAM WALLS | ELLEN [...] LABORATORY | [address] | [place] [address] | | | SERVICES, CORE | PARK [...] | | | LABORATORY | | | GRENADIAN | | | SERVICES, | | | [...] the MDRD equation recommended by the | [facility] | | National Kidney Disease Education Program. [...] | + + + + + | [facility] LABORATORY | [address] | [place] [address] | | | CAM WALLS | ELLEN [...] | + + + + + | [facility] | [address] | [place] [address] | | | SERVICES, CORE | ELLEN [...] LABORATORY | [address] | [place] [address] | | | SERVICES, CORE | PARK [...] LABORATORY | [address] | [place] [address] | | | SERVICES, CORE | PARK [...] | | | LABORATORY | | | GRENADIAN | | | SERVICES, | | | [...] the MDRD equation recommended by the | [facility] | | National Kidney Disease Education Program. Estimated GFR | LABORATORY | | Interpretive Information: <60 mL/min/1.73 sq m | [facility], CORE | | Chronic Kidney Disease [...] | + + + + + | [facility] LABORAT[facility] | [address] | [place] [address] | | | SERVICES, CORE | PARK [...] | + + + + + | [facility] LABORAT[facility] | [address] | [place] [address] | | | SERVICES, CORE | PARK [...] | + + + + + | [facility] LABORAT[facility] | [address] | [place] [address] | | | SERVICES, CORE | [address] | | | + + + + + MAGNESIUM, PLASMA (08/20/2014 6:42 AM PST) + +---------+ + + + | Component | Value | Ref Range | Performed | Pathologist | | | | | At | Signature | + +---------+ + + + | MAGNESIUM,P | 1.6 (L) | 1.8 - 2.5 mg/dL | [facility] | | | JUSTENMA | | | [...] | + + + + + | [facility] | [address] | [place] [address] | | | SERVICES, CORE | PARK [...] | | | LABORATORY | | | GRENADIAN | | | SERVICES, | | | [...] the MDRD equation recommended by the | [facility] | | National Kidney Disease [...] LABORATORY | [address] | [place] [address] | | | SERVICES, CORE | PARK [...] LABORATORY | [address] | [place] [address] | | | SERVICES, CORE | PARK [...] | | | LABORATORY | | | GRENADIAN | | | SERVICES, | | | [...] | + + + + + | [facility] | [address] | [place] [address] | | | SERVICES, CORE | ELLEN [...] LABORATORY | [address] | [place] [address] | | | SERVICES, CORE | PARK [...] [place] LABORATORY | [address] | [place] [address] | | | SERVICES, CORE | PARK [...] LABORATORY | [address] | [place] [address] | | | SERVICES, CORE | ELLEN [...] LABORATORY | [address] | [place] [address] | | | SERVICES, CORE | PARK [...] | + + + + + | [facility] | [address] | [place] [address] | | | SERVICES, CORE | ELLEN [...] | | | LABORATORY | | | GRENADIAN | | | SERVICES, | | | [...] LABORATORY | [address] | [place] [address] | | | SERVICES, CORE | PARK [...] | + + + + + | [facility] | [address] | [place] [address] | | | SERVICES, CAM | ELLEN [...] | + + + + + | [facility] LABORATORY | [address] | [place] [address] | | | CAM WALLS | ELLEN [...] | | | LABORATORY | | | GRENADIAN | | | SERVICES, | | | [...] | + + + + + | [facility] | [address] | [place] [address] | | | SERVICES, [facility] | [address] | | | + [...] | + + + + + | [email or web address] LABORATORY | [address] | [place] [address] | | | SERVICES, CAM | ELLEN [...] + | [facility] | [address] | [place], [place] | | | CARDIOLOGY | [address] | [address] | | + + + + + [...] GONZALEZ | [address] | [place], [place] | | | ARUN [place] OF CARE | [address] | [address] | | | TESTS | | | [...] MARQUAM | [address] | [place], [place] | | | ARUN [place] OF RICKIE | [address] | [address] | | | TESTS | | | [...] SHARATHAM | [address] | [place], [place] | | | AR[place] OF CARE | [address] | [address] | | | TESTS | | | [...] GONZALEZ | [address] | [place], [place] | | | AR[place] OF CARE | [facility] | [address] | | | TESTS | | | [...] CARLOS | [address] | [place], [place] | | | AR[place] OF CARE | [address] | [address] | | | TESTS | | | [...] - CARLOS | [address] | [place], [place] | | | [facility] OF [facility] | [facility] | [address] | | | TESTS | | | [...] MARQUAM | [address] | [place], [place] | | | SREE POINT OF CARE | [address] | [address] | | | TESTS | | | [...] + + + + | [facility] | 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
--- OUTSIDE RECORDS SUMMARY | ~2019-12-15 | XMS | Encounter Summary ---
Demographics + + + | Address | [address] | | | [place] [address] | + + + | Home Phone [...] + + | Author | [facility] | + + + | Organization | [facility] [employer] [facility] | + + + | Address | Unknown | + + + | Phone | Unavailable | + + + Support + + + + + | Name | Relationship | Address | Phone | + + + + + | Yennifer Batista | ECON | [address] | | | | | [place] | | | | | [address] | | + + + + + Care Team Providers + +------+ + | Care Film Processor Name | Role | Phone | + +------+ + | Ed Landis MD PCP | | + +------+ + Encounter Details +--------+ + + + + | Date | Type | Department | Care Team | Description | +--------+ + + + + | 06/02/ | Pharmacy | [facility] | | | | 2013 | Visit | & Healing Pharmacy | | | | | | [address] | | | | | | Mailcode: [place] | | | | | | [facility] Health and | | | | | | Healing, Building [address] | | | | | | [place], [place] | | | | | | [address] | | | | | | [phone] | | | +--------+ + + + [...]
--- OUTSIDE RECORDS SUMMARY | ~2019-12-15 | XMS | Encounter Summary ---
Demographics + + + | Address | [address] | | | [place] [address] | + + + | Home Phone | | + + + | Preferred Language | Unknown | + + + | Marital Status | Single | + + + | Baptism Affiliation | ZEFERINO | + + + | Race | or | + + + | Ethnic Group | Not or | + + + Author + + + | Author | [facility] | + + + | Organization | [facility] | + + + | Address | Unknown | + + + | Phone | Unavailable | + + + Support + + + + + | Name | Relationship | Address | Phone | + + + + + | Yennifer Batista | ECON | [address] | | | | | [place] | | | | | [address] | | + + + + + Care Team Providers + +------+ + | Care Candy Maker Name | Role | Phone | + +------+ + | Ed Landis MD PCP | | + +------+ + Encounter Details +--------+ + + + + | Date | Type | Department | Care Team | Description | +--------+ + + + + | 01/11/ | Documentati | [facility] | Yady, Estelita Procedure | | | 2018 | on | [place] [address] | | | | | | [address] Mailcode: | | | | | | OC2L [facility] | | | | | | Health and Healing, | | | | | | Building [address] | | | | | | [place], [place] | | | | | | [address] | | | | | | [phone] | | | +--------+ + + + [...]
--- OUTSIDE RECORDS SUMMARY | ~2019-12-15 | XMS | Encounter Summary ---
Demographics + + + | Address | [address] | | | [place] [address] | + + + | Home Phone [...] + + + | Author | [facility] | + + + | Organization | [facility] [employer] [facility] | + + + | Address | Unknown | + + + | Phone | Unavailable | + + + Support + + + + + | Name | Relationship | Address | Phone | + + + + + | Yennifer Batista | ECON | [address] | | | | | [place] | | | | | [address] | | + + + + + Care Team Providers + +------+ + | Care Attendant Campground Name | Role | Phone | + [...] Referral To | | 2018 | | [place] [facility] [address] | Gastroenterology | Gastroenterology | | | | [address] | | | | | | Mailcode: [place] | | | | | | [facility] and | | | | | | [facility] 2 | | | | | | [place], [place] | | | | | | [address] | | | | | | [phone] | | | +--------+ + + + [...]
--- OUTSIDE RECORDS SUMMARY | ~2019-12-15 | XMS | Encounter Summary ---
Demographics + + + | Address | [address] | | | [place] [address] | + + + | Home Phone [...] + + | Author | [facility] | + + + | Organization | [facility] | + + + | Address | Unknown | + + + | Phone | Unavailable | + + + Support + + + + + | Name | Relationship | Address | Phone | + + + + + | Yennifer Batista | ECON | [address] | | | | | [place] | | | | | [address] | | + + + + + Care Team Providers + +------+ + | Care Buttoner Name | Role | Phone | + [...] | | | | GI PROCEDURE | [place], [place] | for Health | | | | | UNIT: EGD W | [address] | and Healing, | | | | | DILATION | | Building 2 | | | | | ID UPPER GI | | [place], [place] | | | | | ENDOSCOPY,BI | | [address] | | | | | OPSY ID UP | | Phone: | | | | | GI | | [phone] | | | | | ENDOSCOPY,BA | | Fax: | | | | | LL DIL,30MM | | [phone] | +--------+--------+ + + + + Encounter [...] 2 | | | | | | [place], [place] | | | | | | [address] | | | | | | [phone] | | | +--------+ + + + [...]
--- OUTSIDE RECORDS SUMMARY | ~2019-12-15 | XMS | Encounter Summary ---
Demographics + + + | Address | [address] | | | [place] [address] | + + + | Home Phone [...] Author + + + | Author | [facility] [employer] [facility] | + + + | Organization | [facility] [employer] [facility] | + + + | Address | Unknown | + + + | Phone | Unavailable | + + + Support + + + + + | Name | Relationship | Address | Phone | + + + + + | Yennifer Batista | ECON | [address] | | | | | [place] | | | | | [address] | | + + + + + Care Team Providers + +------+ + | Care Map Editor Name | Role | Phone | [...] | | | | | dilatation | [place], [place] | for Health | | | | | of | [address] | and Healing, | | | | | esophageal | Phone: | Building [address] | | | | | stricture | [phone] | [place], [place] | | | | | Polyp of | Fax: | [address] | | | | | colon, | [phone] | Phone: | | | | | unspecified | | [phone] | | | | | part of | | Fax: | | | | | colon, | | [phone] | | | | | unspecified | [...] | | | | | | | DE UPPER GI | | | | | | | | | | | | | | ENDOSCOPY,BI | | | | | | | OPSY DE | | | | | | | [...] | | | | | [facility] | [address] | | | | | | [place] | [address] | | | | | | Health | Physicians | | | | | | Center | [address] | | | | | | [address] | Floor | | | | | | Confederated | [place], [place] | | | | | | Way | [address] | | | | | | [place] | Phone: | | | | | | [place] [address] | [phone] | | | | | | Phone: | Fax: | | | | | | [phone] | [phone] | | | | | | Fax: | | | | | | | [phone] | | +--------+--------+ + + + + [...] | | | | [address] | [place], [place] | of esophageal | | | | Physicians Pavilion, | [address] | stricture; Severe | | | | 2nd Floor | [phone] | protein-calorie | | | | [place], [place] | | malnutrition (Sen: | | | | [address] | | less than 60% of | | | | [phone] | | standard weight) | | | [...]
--- OUTSIDE RECORDS SUMMARY | ~2019-12-15 | XMS | Encounter Summary ---
Demographics + + + | Address | [address] | | | [place] [address] | + + + | Home Phone [...] [facility] [employer] [facility] | + + + | Organization | Counts Include [facility] [employer] [facility] | + + + | Address | Unknown | + + + | Phone | Unavailable | + + + Support + + + + + | Name | Relationship | Address | Phone | + + + + + | Yennifer Batista | ECON | [address] | | | | | [place] | | | | | [address] | | + + + + + Care Team Providers + +------+ + | Care Cultural Historian Name | Role | Phone | + [...] 2017 | | General Surgery at | [facility] | | | | | [facility] [address] [place], [place] | | | | | [address] | [address] | | | | | Physicians [place], | | | | | | 2nd Floor | | | | | | [place], [place] | | | | | | [address] | | | | | | [phone] | | | +--------+ + + + [...]
--- OUTSIDE RECORDS SUMMARY | ~2019-12-15 | XMS | Encounter Summary ---
Demographics + + + | Address | [address] | | | [place] [address] | + + + | Home Phone [...] | Author | [facility] [employer] [facility] | + + + | Organization | [facility] [employer] [facility] | + + + | Address | Unknown | + + + | Phone | Unavailable | + + + Support + + + + + | Name | Relationship | Address | Phone | + + + + + | Yennifer Batista | ECON | [address] | | | | | [place] | | | | | [address] | | + + + + + Care Team Providers + +------+ + | Care Hotel Front Desk Agent Name | Role | Phone | + [...] | | | | period | [place] [address] | [address] Phone: | | | | | | Phone: | [phone] | | | | | | [phone] | Fax: | | | | | | Fax: | [phone] | | | | | | [phone] | | +--------+--------+ + + + + Encounter Details +--------+---------+ + + + | Date | Type | Department | Care Team | Description | +--------+---------+ + + + | 09/01/ | Office | Urology at [facility] | Theresa Beyer, | Adrenal mass (HCC) | | 2014 | Visit | [address] | [address] | (Primary Dx) | | | | Mailcode: CH10U | [place] [address] | | | | | [facility] | [phone] | | | | | and [place], | | | | | | Building | | | | | | Floor [place], [place] | | | | | | [address] | | | | | | [phone] | | | +--------+---------+ + + + [...] from all bl ack inked margins. Submitted: Performance Test Architect The tumor is sampled for the Bio Marker study and the BioLibrary. Cassette Index: A1-3, territory representative adrenal to mass A4-6, territory representative intracapsular mass AMJ:tp My electronic signature indicates that I have personally reviewed al l diagnostic slides, the gross and/or microscopic portion of this report and formulated the final diagnosis. Rendering Diagnostician: Juanjo Covington M.D. Pathologist Electronically Signed 08/22/2014 4:58PM GLUCOSE, PLASMA (LAB) 08/18/2014 85 BUN, PLASMA (LAB) 08/18/2014 10 CREATININE PLASMA (LAB) 08/18/2014 0.80 EGFR - SWEDISH 08/18/2014 >60 EGFR NON -SWEDISH 08/18/2014 >60 SODIUM, PLASMA (LAB) 08/18/2014 140 [...] CREATININE PLASMA (LAB) 08/17/2014 0.89 EGFR - SWEDISH 08/17/2014 >60 EGFR NON -SWEDISH 08/17/2014 >60 SODIUM, PLASMA (LAB) 08/17/2014 139 [...] CREATININE PLASMA (LAB) 08/19/2014 0.72 EGFR - SWEDISH 08/19/2014 >60 EGFR NON -SWEDISH 08/19/2014 >60 SODIUM, PLASMA (LAB) 08/19/2014 136 [...] CREATININE PLASMA (LAB) 08/20/2014 0.63* EGFR - SWEDISH 08/20/2014 >60 EGFR NON -SWEDISH 08/20/2014 >60 SODIUM, PLASMA (LAB) 08/20/2014 134* [...] CREATININE PLASMA (LAB) 08/21/2014 0.57* EGFR - SWEDISH 08/21/2014 >60 EGFR NON -SWEDISH 08/21/2014 >60 SODIUM, PLASMA (LAB) 08/21/2014 133* [...] CREATININE PLASMA (LAB) 08/22/2014 0.66* EGFR - SWEDISH 08/22/2014 >60 EGFR NON -SWEDISH 08/22/2014 >60 SODIUM, PLASMA (LAB) 08/22/2014 139 [...] BEYER MD UROLOGY ONCOLOGY [address] [facility] Mail Code: Ch10u [facility], 10th [facility] [address] documented in this en counter Plan of Treatment Not on filedocumented as of this encounter Visit Diagnoses + + | Diagnosis | + + | 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
--- OUTSIDE RECORDS SUMMARY | ~2019-12-15 | XMS | Encounter Summary ---
Demographics + + + | Address | [address] | | | [place] [address] | + + + | Home Phone [...] + + | Author | [facility] [employer] [facility] | + + + | Organization | [facility] [employer] [facility] | + + + | Address | Unknown | + + + | Phone | Unavailable | + + + Support + + + + + | Name | Relationship | Address | Phone | + + + + + | Yennifer Batista | ECON | [address] | | | | | [place] | | | | | [address] | | + + + + + Care Team Providers + +------+ + | Care Securities Consultant Name | Role | Phone | + +------+ + | Ed Landis MD PCP | | + +------+ + Reason for Visit + + + | Reason | Comments | + + + | Treatment Planning | | + + + | Treatment Planning | informed clinic about status | + + + Encounter Details +--------+ + + + + | Date | Type | Department | Care Team | Description | +--------+ + + + + | 04/17/ | Telephone | Urology at [facility] | Larissa Doe, | Treatment Planning; | | 2013 | | [address] | Jesus Leiva MD [address] | Treatment Planning | | | | Mailcode: CH10U | [facility] | (informed clinic | | | | [facility] | [address] | about status) | | | | and Healing, | [place] [address] | | | | | [facility] | [phone] | | | | | [place], [place] | | | | | | [address] | | | | | | [phone] | | | +--------+ + + + [...]
--- OUTSIDE RECORDS SUMMARY | ~2019-12-15 | XMS | Encounter Summary ---
Demographics + + + | Address | [address] | | | [place] [address] | + + + | Home Phone [...] | Author | [facility] | + + + | Organization | [facility] [employer] [facility] | + + + | Address | Unknown | + + + | Phone | Unavailable | + + + Support + + + + + | Name | Relationship | Address | Phone | + + + + + | Yennifer Batista | ECON | [address] | | | | | [place] | | | | | [address] | | + + + + + Care Team Providers + +------+ + | Care Associate Professor Computer Science Name | Role | Phone | + +------+ + | Sujatha Sullivan | PCP | | | PHYTOPATHOLOGIST | | | + +------+ + Encounter [...] | | at [place] [facility] | [facility] | | | | | [address] | [place] [address] | | | | | [address] [facility] | | | | | | [place], [facility] floor | | | | | | [place], [place] | | | | | | [address] | | | | | | [phone] | | | +--------+ + + + [...]
--- OUTSIDE RECORDS SUMMARY | ~2019-12-15 | XMS | Encounter Summary ---
Demographics + + + | Address | [address] | | | [place] [address] | + + + | Home Phone [...] | Author | [facility] [employer] [facility] | + + + | Organization | [facility] Notice [employer] [facility] | + + + | Address | Unknown | + + + | Phone | Unavailable | + + + Support + + + + + | Name | Relationship | Address | Phone | + + + + + | Yennifer Batista | ECON | [address] | | | | | [place] | | | | | [address] | | + + + + + Care Team Providers + +------+ + | Care Glassware Selector Name | Role | Phone | + [...] | | | | UNIT: EGD | [place], [place] | and Healing, | | | | | DC UPPER GI | [address] | [address] | | | | | ENDOSCOPY,BI | Phone: | [place], [place] | | | | | OPSY DC UP | [phone] | [address] | | | | | GI | Fax: | Phone: | | | | | ENDOSCOPY,BA | [phone] | [phone] | | | | | LL DIL,30MM | | Fax: | | | | | DC UPPER GI | | [phone] | | | | | | | | | | | | ENDOSCOPY,LI | | | | | | | GAT VARIX | | | +--------+--------+ + + + + Encounter Details +--------+ + + + + | Date | Type | Department | Care Team | Description | +--------+ + + + + | 08/11/ | Lending Activities Supervisor | Digestive Health | Frederic Kohler | Esophageal stricture | | 2017 | | [place] [facility] [address] | MD Kiesha,MPH [address] | (Primary Dx) | | | | [address] | [address] | | | | | Mailcode: OC8D | [place] [address] | | | | | [facility] | [phone] | | | | | and Healing, | | | | | | [address] | | | | | | [place], [place] | | | | | | [address] | | | | | | [phone] | | | +--------+ + + + [...]
--- OUTSIDE RECORDS SUMMARY | ~2019-12-15 | XMS | Encounter Summary ---
Demographics + + + | Address | [address] | | | [place] [address] | + + + | Home Phone [...] + | Author | [facility] [facility] | + + + | Organization | [facility] [employer] [facility] | + + + | Address | Unknown | + + + | Phone | Unavailable | + + + Support + + + + + | Name | Relationship | Address | Phone | + + + + + | Yennifer Batista | ECON | [address] | | | | | [place] | | | | | [address] | | + + + + + Care Team Providers + +------+ + | Care Tack Picker Name | Role | Phone | + [...] + + | 02/17/ | Hospital | [facility] GI PROCEDURE | Dar Drake MD | | | 2018 | Encounter | [address] | [address] | | | | | Ave Mailcode: [facility] | [place], [place] | | | | | [facility] | [address] | | | | | Health and Healing, | [phone] | | | | | [place] [address] | | | | | | [place], [place] | | | | | | [address] | | | | | | [phone] | | | +--------+ + + + [...] Discharge Instructions Instructions Oliver Nguyễn RN - 02/17/2018[place] Care Instructions after EGD (Upper Endos copy) [...] hours or on weekends and holiday Hospital Automation/Controls Manager toll free [phone]. [phone] and have the GI doctor operations intelligence paged. The provider who performed your procedure [...] from jaja madden. PRE PROCEDURE NOTE: MR# [id number] Subjective: Franck Batista is a 57 y.o. [...] + | MRN: | [facility] | | [id number] Date: 02/17/2018Patient Name: Franck Mares #: | ENDOSCOPY | | [id number] of : 1960CSN: [id number] Type: | | | AmbulatoryRoom: [facility] 1Procedure: Upper GI | | | endoscopyIndications: DysphagiaProviders: | | | DAR DRAKE MD (Doctor), OLIVER NGUYỄN RN (Nurse), | | | TYE GLYNN (Refinery Pipeline Operator), SANDRA MORALES, Refinery Pipeline Operator | | | (Refinery Pipeline Operator)Referring MD: | | | DAKSHA ALARCON MDRequesting [...] | | | The [employer] [id number] Gastroscope #[id number] was | | | introduced through the [...] + + | Performing | Address | City[facility] | Phone Number | | [...]
--- OUTSIDE RECORDS SUMMARY | ~2019-12-15 | XMS | Clinical Summary ---
Demographics + + + | Address | [address] | | | [place] [address] | + + + | Home Phone [...] + | Yennifer Batista | ECON | [address] | | | | | [place] | | | | | [address] | | + + + + + Care Team Providers + +------+ + | Care Family Law Mediator Name | Role | Phone | + +------+ + | Ed Landis MD | PCP | | + +------+ + Source Comments EVETTE is fully live on both EpicCare Ambulatory and EpicCare InPatient.[facility] Allergies + + + + + + [...] | Heart Disease | Father | | [place] age 40's | + + +------+ + [...] | | | + +--------+ +--------+-------+---------+--------+ | [employer] MEDICAID | PAROLE [employer] MEMBER | xxxxxxxx | | | | Medica [...] Person | Self | [birth year] | | [address] | | | al/Fam | | 1961 | [phone] | [place] [address] | | | doni | | | [...]
--- OUTSIDE RECORDS SUMMARY | ~2019-12-15 | XMS | Encounter Summary ---
Demographics + + + | Address | [address] | | | [place] [address] | + + + | Home Phone [...] + | Author | [facility] [employer] [facility] | + + + | Organization | [facility] [employer] [facility] | + + + | Address | Unknown | + + + | Phone | Unavailable | + + + Support + + + + + | Name | Relationship | Address | Phone | + + + + + | Yennifer Batista | ECON | [address] | | | | | [place] | | | | | [address] | | + + + + + Care Team Providers + +------+ + | Care Merchandise Flow Associate Name | Role | Phone | + +------+ + | Ed Landis MD | PCP | | + +------+ + Encounter Details +--------+ + + + + | Date | Type | Department | Care Team | Description | +--------+ + + + + | 09/18/ | Inside | [facility] at [facility] | Malinda Mason MD | | | 2017 | Referral | [facility] [address] | [address] | | | | Order | [address] Mailcode: | [place], [place] | | | | | OC2L [facility] | [address] | | | | | Health and Healing, | [phone] | | | | | Building [address] | | | | | | [place], [place] | | | | | | [address] | | | | | | [phone] | | | +--------+ + + + [...]
--- OUTSIDE RECORDS SUMMARY | ~2019-12-15 | XMS | Encounter Summary ---
Demographics + + + | Address | [address] | | | [place] [address] | + + + | Home Phone [...] + + + | Author | [facility] [employer] [facility] | + + + | Organization | [facility] [employer] [facility] | + + + | Address | Unknown | + + + | Phone | Unavailable | + + + Support + + + + + | Name | Relationship | Address | Phone | + + + + + | Yennifer Batista | ECON | [address] | | | | | [place] | | | | | [address] | | + + + + + Care Team Providers + +------+ + | Care Heating Plant Superintendent Name | Role | Phone | + +------+ + | Ed Landis MD | PCP | | + +------+ + Encounter Details +--------+ + + + + | Date | Type | Department | Care Team | Description | +--------+ + + + + | 07/01/ | Inside | [facility] | Damaris Woods MD | | | 2018 | Referral | [facility] [address] | [address] | | | | Order | [address] Mailcode: | Shania Marinelli [place], | | | | | [address]L [facility] | [place] [address] | | | | | Health and Healing, | [phone] | | | | | [address] | | | | | | [place], [place] | | | | | | [address] | | | | | | [phone] | | | +--------+ + + + [...]
--- OUTSIDE RECORDS SUMMARY | ~2019-12-15 | XMS | Encounter Summary ---
Demographics + + + | Address | [address] | | | [place] [address] | + + + | Home Phone | | + + + | Preferred Language | Unknown | + + + | Marital Status | Single | + + + | Roman Catholic Affiliation | ZEFERINO | + + + | Race | or | + + + | Ethnic Group | Not or | + + + Author + + + | Author | [facility] | + + + | Organization | [facility] [facility] | + + + | Address | Unknown | + + + | Phone | Unavailable | + + + Support + + + + + | Name | Relationship | Address | Phone | + + + + + | Yennifer Batista | ECON | [address] | | | | | [place] | | | | | [address] | | + + + + + Care Team Providers + +------+ + | Care Holder Pile Driving Name | Role | Phone | + [...] | | | | behavior of | [place] | [address] | | | | | adrenal | Urology [address] | | | | | gland | [address] | [address] | | | | | | [address] [place], | [address] | | | | | | [place] [address] | [place], [place] | | | | | | Phone: | [address] Phone: | | | | | | [phone] | [phone] | | | | | | Fax: | Fax: | | | | | | [phone] | [phone] | +--------+ + + + + + Encounter Details +--------+---------+ + + + | Date | Type | Department | Care Team | Description | +--------+---------+ + + + | 01/26/ | Office | Urology at [facility] | Larissa Doe, | Adrenal mass (HCC) | | 2013 | Visit | [address] | Malu Leiva MD [address] | (Primary Dx) | | | | Mailcode: CH10U | [facility] | | | | | [facility] | [address] | | | | | and Healing, | [place] [address] | | | | | [facility] | [phone] | | | | | Floor [place], [place] | | | | | | [address] | | | | | | [phone] | | | +--------+---------+ + + + [...] Plan for excision . MALU KAUR MD associate professor of communication of urology Ofe Pizarro MA - 01/26/2014 [...] | | | LABORATORY | | | MICRONESIAN | | | SERVICES, | | | [...] | + + + + + | [employer] | [address] | [place] [address] | | | KAVITA, CAM | ELLEN [...] + + | ARUN REYES | [address] [facility] | [place] [address] | | | OF CARE TESTS | | | | + + + + + documented in this encounter Visit Diagnoses + + | Diagnosis | + + | 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"
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
--- OUTSIDE RECORDS SUMMARY | ~2019-12-15 | XMS | Encounter Summary ---
Demographics + + + | Address | [address] | | | [place] [address] | + + + | Home Phone [...] + + | Author | [facility] | + + + | Organization | [facility] [employer] [facility] | + + + | Address | Unknown | + + + | Phone | Unavailable | + + + Support + + + + + | Name | Relationship | Address | Phone | + + + + + | Yennifer Batista | ECON | [address] | | | | | [place] | | | | | [address] | | + + + + + Care Team Providers + +------+ + | Care Retail Loss Prevention Officer Name | Role | Phone | + +------+ + | Sujtaha Sullivan | PCP | | | WINDOW GLAZIER | | | + +------+ + Reason [...] | 06/02/ | Office | Urology at [facility] | Theresa Beyer, | Adrenal mass, left | | 2013 | Visit | [address] | [address] | ([facility]) (Primary Dx) | | | | Mailcode: CH10U | [place], [place] [address] | | | | | [place] for [facility] | [phone] | | | | | and [place], | | | | | | | | | | | | Floor [place], [place] | | | | | | [address] | | | | | | [phone] | | | +--------+---------+ + + + [...] of this diet are: Water, Helen lokesh, Lemon-cow creek soft drinks, Apple juice, Tea or c offee without creamer, Gatorade/sports drinks, Jell-O, Broth soups, Popsicle. 2. Laxative: These laxatives are liquids and are taken by mouth. They will stimulate bowel movements. Magnesium Citrate. Drink 1 bottle(s) of magnesium citrate at 12:00pm (or, the early aftern oon) the day before your surgery. Stay close to the bathroom. This is purchased over the [employer]. 3. Hibiclen's (This soap will be provided [...] speak to the Urology Resident who is car inspection and repair manager. documented in this encounter Progress Notes [...]
--- OUTSIDE RECORDS SUMMARY | ~2019-12-15 | XMS | Encounter Summary ---
Demographics + + + | Address | [address] | | | [place] [address] | + + + | Home Phone [...] + + | Author | [facility] [employer] [facility] | + + + | Organization | [facility] [employer] [facility] | + + + | Address | Unknown | + + + | Phone | Unavailable | + + + Support + + + + + | Name | Relationship | Address | Phone | + + + + + | Yennifer Batista | ECON | [address] | | | | | [place] | | | | | [address] | | + + + + + Care Team Providers + +------+ + | Care Fork Truck Driver Name | Role | Phone | [...] + + | 08/11/ | Hospital | [facility] GI PROCEDURE | Frederic Kohler | | | 2017 | Encounter | [address] | MD Kiesha,MPH [address] | | | | | [address] Mailcode: [facility] | [address] | | | | | [facility] for | [place] [address] | | | | | Health and Healing, | [phone] | | | | | [place] [address] | | | | | | [place], [place] | | | | | | [address] | | | | | | [phone] | | | +--------+ + + + [...] documented in this encounter Discharge Instructions Instructions Kemar IvetJARROD - 08/11/2016[place] Care Instructions after EGD (Upper Endoscopy) You [...] hours or on weekends and holiday Hospital Music Producer toll free [phone]. [phone] and have the GI doctor financial institution treasurer paged. The provider who performed your procedure [...] PROCEDURE NOTE: | | | 08/11/2016 Subjective: Franck Batista, | | | presents today for EGD. [...] Frederic Kohler, | | | Sonam, M.P.H. [facility] Division of Gastroenterology & Hepatology [...] 1:56 | | | | | Starting Thu08/11/16 at 1356, | | PM PST | [...] 1:56 | | | | | Starting Thu08/11/16 at 1356, | | PM PST | [...] 2:05 | | | | | Starting 08/11/16 at 1405, | | PM PST | | | | | Until 08/11/16 at 1405 | | | | | [...] | | | | | 08/11/16 at 2118 | | | | | | + [...]
--- OUTSIDE RECORDS SUMMARY | ~2019-12-15 | XMS | Encounter Summary ---
Demographics + + + | Address | [address] | | | [place] [address] | + + + | Home Phone [...] + + | Author | [facility] [employer] [facility] | + + + | Organization | [facility] [employer] [facility] | + + + | Address | Unknown | + + + | Phone | Unavailable | + + + Support + + + + + | Name | Relationship | Address | Phone | + + + + + | Yennifer Batista | ECON | [address] | | | | | [place] | | | | | [address] | | + + + + + Care Team Providers + +------+ + | Care Appliance Worker Name | Role | Phone | [...] Byers | (06/30/18) | | | | [facility] [address] | [facility], | | | | | [address] | [place] [address] | | | | | Isabella [address], | [phone] | | | | | 4th floor [place], | | | | | | [place] [address] | | | | | | [phone] | | | +--------+ + + + [...]
--- OUTSIDE RECORDS SUMMARY | ~2019-12-15 | XMS | Encounter Summary ---
Demographics + + + | Address | [address] | | | [place] [address] | + + + | Home Phone [...] | Author | [facility] [employer] [facility] | + + + | Organization | [facility] [employer] [facility] | + + + | Address | Unknown | + + + | Phone | Unavailable | + + + Support + + + + + | Name | Relationship | Address | Phone | + + + + + | Yennifer Batista | ECON | [address] | | | | | [place] | | | | | [address] | | + + + + + Care Team Providers + +------+ + | Care Hair Mixer Name | Role | Phone | + [...] | [address] | Shania Marinelli [place], | | | | | Mailcode: CH6A | [place] [address] | | | | | [place], [place] | | | | | | [address] | | | | | | [phone] | | | +--------+ + + + [...]
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
--- OUTSIDE RECORDS SUMMARY | ~2019-12-15 | XMS | Encounter Summary ---
Demographics + + + | Address | [address] | | | [place] [address] | + + + | Home Phone [...] | Author | [facility] | + + + | Organization | [facility] [employer] [facility] | + + + | Address | Unknown | + + + | Phone | Unavailable | + + + Support + + + + + | Name | Relationship | Address | Phone | + + + + + | Yennifer Batista | ECON | [address] | | | | | [place] | | | | | [address] | | + + + + + Care Team Providers + +------+ + | Care Insulation Cupola Operator Name | Role | Phone | + +------+ + | Ed Landis MD PCP | | + +------+ + Encounter Details +--------+ + + + + | Date | Type | Department | Care Team | Description | +--------+ + + + + | 05/23/ | Documentati | [facility] at [facility] | Yady, Estelita Procedure | | | 2019 | on | [address] | | | | | | [address] Mailcode: | | | | | | OC[facility]L [facility] | | | | | | Health and Healing, | | | | | | Building [address] | | | | | | [place], [place] | | | | | | [address] | | | | | | [phone] | | | +--------+ + + + [...]
--- OUTSIDE RECORDS SUMMARY | ~2019-12-15 | XMS | Encounter Summary ---
Demographics + + + | Address | [address] | | | [place] [address] | + + + | Home Phone [...] | [facility] [employer] [facility] | + + + | Organization | [facility] [employer] [facility] | + + + | Address | Unknown | + + + | Phone | Unavailable | + + + Support + + + + + | Name | Relationship | Address | Phone | + + + + + | Yennifer Batista | ECON | [address] | | | | | [place] | | | | | [address] | | + + + + + Care Team Providers + +------+ + | Care Electrolysis Investigator Name | Role | Phone | + +------+ + | Sujatha Sullivan | PCP | | | PROFESSOR OF RHETORIC | | | + +------+ + Reason [...] | | Preop | Adriana Restrepo, | [facility] [address] | | | | | cardiovascul | PA-C [address] | | | | | ar exam | [address] | [address] [place] | | | | | Arrhythmia | [place], [place] | [place] | | | | | [place] (dyspnea | [address] | Building, 2nd | | | | | on | Phone: | floor | | | | | exertion) | [phone] | [place], [place] | | | | | Procedures | Fax: | [address] | | | | | STRESS | [phone] | Phone: | | | | | ECHOCARDIOGR | | [phone] | | | | | AM, CONVERT [...] | | | | | | at [facility] [address] | | | | | | Ave Mailcode: CH9A | | | | | | [facility] | | | | | | and Healing, | | | | | | Building 1 | | | | | | [place], [place] | | | | | | [address] | | | | | | [phone] | | | +--------+ + + + [...]
--- OUTSIDE RECORDS SUMMARY | ~2019-12-15 | XMS | Encounter Summary ---
Demographics + + + | Address | [address] | | | [place] [address] | + + + | Home Phone [...] Author + + + | Author | [facility] | + + + | Organization | [facility] [employer] [facility] | + + + | Address | Unknown | + + + | Phone | Unavailable | + + + Support + + + + + | Name | Relationship | Address | Phone | + + + + + | Yennifer Batista | ECON | [address] | | | | | [place] | | | | | [address] | | + + + + + Care Team Providers + +------+ + | Care Manager Mail Name | Role | Phone | + [...] | | | | GI PROCEDURE | [place], [place] | floor | | | | | UNIT: | [address] | [place], [place] | | | | | COLONOSCOPY | Phone: | [address] | | | | | CONSULT TO | [phone] | Phone: | | | | | GI PROCEDURE | Fax: | [phone] | | | | | UNIT: EGD W | [phone] | Fax: | | | | | COLONOSCOPY | | [phone] | +--------+--------+ + + + + Encounter [...] | [address] | Shania Marinelli [place], | | | | | [address] | [place] [address] | | | | | [address]abella [address], | [phone] | | | | | 4th floor [place], | | | | | | [place] [address] | | | | | | [phone] | | | +--------+ + + + [...]
--- OUTSIDE RECORDS SUMMARY | ~2019-12-15 | XMS | Encounter Summary ---
Demographics + + + | Address | [address] | | | [place] [address] | + + + | Home Phone [...] + | Author | [facility] | + + + | Organization | [facility] [employer] [facility] | + + + | Address | Unknown | + + + | Phone | Unavailable | + + + Support + + + + + | Name | Relationship | Address | Phone | + + + + + | Yennifer Batista | ECON | [address] | | | | | [place] | | | | | [address] | | + + + + + Care Team Providers + +------+ + | Care Oxyhydrogen Welder Name | Role | Phone | + [...] | 04/17/ | Telephone | Urology at [facility] | Larissa Doe, | Treatment Planning; | | 2013 | | [address] | Jesus Leiva MD [address] | Treatment Planning | | | | Mailcode: CH10U | [facility] | (informed clinic | | | | [facility] | [address] | about status) | | | | and Healing, | [place] [address] | | | | | [facility] | [phone] | | | | | [place], [place] | | | | | | [address] | | | | | | [phone] | | | +--------+ + + + [...]
--- OUTSIDE RECORDS SUMMARY | ~2019-12-15 | XMS | Encounter Summary ---
Demographics + + + | Address | [address] | | | [place] [address] | + + + | Home Phone [...] | Author | [facility] [email or web address] [facility] | + + + | Organization | [facility] [employer] [facility] | + + + | Address | Unknown | + + + | Phone | Unavailable | + + + Support + + + + + | Name | Relationship | Address | Phone | + + + + + | Yennifer Batista | ECON | [address] | | | | | [place] | | | | | [address] | | + + + + + Care Team Providers + +------+ + | Care Forensic Document Examiner Name | Role | Phone | [...] Pharmacy | | | | | | [address] | | | | | | [place], [place] | | | | | | [address] | | | | | | [phone] | | | +--------+ + + + [...]
--- OUTSIDE RECORDS SUMMARY | ~2019-12-15 | XMS | Encounter Summary ---
Demographics + + + | Address | [address] | | | [place] [address] | + + + | Home Phone [...] + + + | Author | [facility] [employer] [facility] | + + + | Organization | [facility] [employer] [facility] | + + + | Address | Unknown | + + + | Phone | Unavailable | + + + Support + + + + + | Name | Relationship | Address | Phone | + + + + + | Yennifer Batista | ECON | [address] | | | | | [place] | | | | | [address] | | + + + + + Care Team Providers + +------+ + | Care Director Of Marketing Analytics Name | Role | Phone | + [...] | | | | GI PROCEDURE | [place], [place] | floor | | | | | UNIT: | [address] | [place], [place] | | | | | COLONOSCOPY | Phone: | [address] | | | | | CONSULT TO | [phone] | Phone: | | | | | GI PROCEDURE | Fax: | [phone] | | | | | UNIT: EGD W | [phone] | Fax: | | | | | COLONOSCOPY | | [phone] | +--------+--------+ + + + + Encounter Details +--------+ + + + + | Date | Type | Department | Care Team | Description | +--------+ + + + + | 06/30/ | Telephone | Endoscopic | Damaris Woods MD | | | 2018 | | Procedural Unit at | [address] | | | | | [address] | Shania Marinelli [place], | | | | | [address] | [place] [address] | | | | | Isabella [address], | [phone] | | | | | 4th floor [place], | | | | | | [place] [address] | | | | | | [phone] | | | +--------+ + + + [...]
--- OUTSIDE RECORDS SUMMARY | ~2019-12-15 | XMS | Encounter Summary ---
Demographics + + + | Address | [address] | | | [place] [address] | + + + | Home Phone [...] Author + + + | Author | [facility] | + + + | Organization | [facility] [employer] [facility] | + + + | Address | Unknown | + + + | Phone | Unavailable | + + + Support + + + + + | Name | Relationship | Address | Phone | + + + + + | Yennifer Batista | ECON | [address] | | | | | [place] | | | | | [address] | | + + + + + Care Team Providers + +------+ + | Care Soft Sugar Cutter Name | Role | Phone | + +------+ + | Ed Landis MD PCP | | + +------+ + Encounter Details +--------+ + + + + | Date | Type | Department | Care Team | Description | +--------+ + + + + | 02/17/ | Pharmacy | [facility] | | | | 2018 | Visit | & [facility]aling Pharmacy | | | | | | [address] | | | | | | Mailcode: [place] | | | | | | for Health and | | | | | | Healing, [address] | | | | | | [place], [place] | | | | | | [address] | | | | | | [phone] | | | +--------+ + + + [...]
--- OUTSIDE RECORDS SUMMARY | ~2019-12-15 | XMS | Encounter Summary ---
Demographics + + + | Address | [address] | | | [place] [address] | + + + | Home Phone [...] + + + | Author | [facility] | + + + | Organization | [facility] [employer] [facility] | + + + | Address | Unknown | + + + | Phone | Unavailable | + + + Support + + + + + | Name | Relationship | Address | Phone | + + + + + | Yennifer Batista | ECON | [address] | | | | | [place] | | | | | [address] | | + + + + + Care Team Providers + +------+ + | Care Auto Tune Up Mechanic Name | Role | Phone | [...] | on | General Surgery at | [facility] | | | | | PPV [address] [place], [place] | | | | | [address] | [address] | | | | | Physicians [place], | | | | | | 2nd Floor | | | | | | [place], [place] | | | | | | [address] | | | | | | [phone] | | | +--------+ + + + [...]
--- OUTSIDE RECORDS SUMMARY | ~2019-12-15 | XMS | Encounter Summary ---
Demographics + + + | Address | [address] | | | [place] [address] | + + + | Home Phone | | + + + | Preferred Language | Unknown | + + + | Marital Status | Single | + + + | Restoration Affiliation | ZEEFRINO | + + + | Race | or | + + + | Ethnic Group | Not or | + + + Author + + + | Author | [facility] [employer] [facility] | + + + | Organization | [facility] [employer] [facility] | + + + | Address | Unknown | + + + | Phone | Unavailable | + + + Support + + + + + | Name | Relationship | Address | Phone | + + + + + | Yennifer Batista | ECON | [address] | | | | | [place] | | | | | [address] | | + + + + + Care Team Providers + +------+ + | Care Lpn Instructor Name | Role | Phone | + +------+ + | Ed Landis MD | PCP | | + +------+ + Encounter Details +--------+ + + + + | Date | Type | Department | Care Team | Description | +--------+ + + + + | 08/12/ | Documentati | Digestive Health | Frederic Kohler | | | 2016 | on | Center at [facility] [address] | MD Kiesha,MPH [address] | | | | [address] | [address] | | | | | Mailcode: [place] | [place] [address] | | | | | [facility] and | [phone] | | | | | [facility] [address] | | | | | | [place], [place] | | | | | | [address] | | | | | | [phone] | | | +--------+ + + + [...]
--- OUTSIDE RECORDS SUMMARY | ~2019-12-15 | XMS | Encounter Summary ---
Demographics + + + | Address | [address] | | | [place] [address] | + + + | Home Phone [...] | Author | [facility] [employer] [facility] | + + + | Organization | [facility] [employer] [facility] | + + + | Address | Unknown | + + + | Phone | Unavailable | + + + Support + + + + + | Name | Relationship | Address | Phone | + + + + + | Yennifer Batista | ECON | [address] | | | | | [place] | | | | | [address] | | + + + + + Care Team Providers + +------+ + | Care Compressor Station Chief Engineer Name | Role | Phone | + +------+ + | Ed Landis MD PCP | | + +------+ + Encounter Details +--------+ + + + + | Date | Type | Department | Care Team | Description | +--------+ + + + + | 01/11/ | Documentati | EVETTE ADAIR at [facility] | Yady, Estelita Procedure | | | 2018 | on | [facility] [address] | | | | | | [address] Mailcode: | | | | | | [address] [facility] | | | | | | Health and Healing, | | | | | | Building [address] | | | | | | [place], [place] | | | | | | [address] | | | | | | [phone] | | | +--------+ + + + [...]
--- OUTSIDE RECORDS SUMMARY | ~2019-12-15 | XMS | Encounter Summary ---
Demographics + + + | Address | [address] | | | [place] [address] | + + + | Home Phone [...] | Author | [facility] | + + + | Organization | [facility] [employer] [facility] | + + + | Address | Unknown | + + + | Phone | Unavailable | + + + Support + + + + + | Name | Relationship | Address | Phone | + + + + + | Yennifer Batista | ECON | [address] | | | | | [place] | | | | | [address] | | + + + + + Care Team Providers + +------+ + | Care Community Outreach Worker Name | Role | Phone | [...] | 01/30/ | Telephone | Urology at [facility] | Larissa Doe, | Treatment Planning | | 2013 | | [address] | Jesus Leiva MD [address] | (MRI needed) | | | | Mailcode: CH10U | [facility] | | | | | [facility] | [address] | | | | | and Healing, | [place] [address] | | | | | [facility] | [phone] | | | | | Floor [place], [place] | | | | | | [address] | | | | | | [phone] | | | +--------+ + + + [...]
--- OUTSIDE RECORDS SUMMARY | ~2019-12-15 | XMS | Encounter Summary ---
Demographics + + + | Address | [address] | | | [place] [address] | + + + | Home Phone [...] Author | [facility] | + + + | Organization | [facility] [employer] 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 Natacha Nelson MD Pager [phone] PGY-2 General Surgery Emergency General Surgery Team [...]
--- OUTSIDE RECORDS SUMMARY | ~2019-12-15 | XMS | Encounter Summary ---
Demographics + + + | Address | [address] | | | [place] [address] | + + + | Home Phone [...] Author | [facility] [employer] [facility] | + + + | Organization | [facility] [employer] [facility] | + + + | Address | Unknown | + + + | Phone | Unavailable | + + + Support + + + + + | Name | Relationship | Address | Phone | + + + + + | Yennifer Batista | ECON | [address] | | | | | [place] | | | | | [address] | | + + + + + Care Team Providers + +------+ + | Care Setter Off Name | Role | Phone | + +------+ + | Ed Landis MD PCP | | + +------+ + Encounter Details +--------+ + + + + | Date | Type | Department | Care Team | Description | +--------+ + + + + | 08/24/ | Telephone | Urology at [facility] | Theresa Beyer, | | | 2015 | | [address] | [address] [place] [address] | | | | | Mailcode: CH10U | [place] [address] | | | | | [facility] | [phone] | | | | | and [place], | | | | | | [facility] | | | | | | [place], [place] | | | | | | [address] | | | | | | [phone] | | | +--------+ + + + [...]
--- OUTSIDE RECORDS SUMMARY | ~2019-12-15 | XMS | Encounter Summary ---
Demographics + + + | Address | [address] | | | [place] [address] | + + + | Home Phone [...] Author | [facility] [employer] [facility] | + + + | Organization | [facility] [employer] [facility] | + + + | Address | Unknown | + + + | Phone | Unavailable | + + + Support + + + + + | Name | Relationship | Address | Phone | + + + + + | Yennifer Batista | ECON | [address] | | | | | [place] | | | | | [address] | | + + + + + Care Team Providers + +------+ + | Care Custom Feed Mill Operator Name | Role | Phone | [...] | Event | Procedural Unit at | [facility] [place] | | | | | [address] | [address] | | | | | [address] | | | | | | [place], | | | | | | 4th floor [place], | | | | | | [place] [address] | | | | | | [phone] | | | +--------+ + + + [...]
--- OUTSIDE RECORDS SUMMARY | ~2019-12-15 | XMS | Encounter Summary ---
Demographics + + + | Address | [address] | | | [place] [address] | + + + | Home Phone | | + + + | Preferred Language | Unknown | + + + | Marital Status | Single | + + + | Hindu Affiliation | ZEFERINO | + + + | Race | or | + + + | Ethnic Group | Not or | + + + Author + + + | Author | [facility] [employer] [facility] | + + + | Organization | [facility] [employer] [facility] | + + + | Address | Unknown | + + + | Phone | Unavailable | + + + Support + + + + + | Name | Relationship | Address | Phone | + + + + + | Yennifer Batista | ECON | [address] | | | | | [place] | | | | | [address] | | + + + + + Care Team Providers + +------+ + | Care Digital Retoucher Name | Role | Phone | + [...] | | | [address] | [facility] [place] | | | | | [place], | [address] | | | | | 4th floor [place], | [phone] | | | | | [place] [address] | | | | | | [phone] | Julian Obregon, | | | | | | DO [address] | | | | | | [address] | | | | | | [place], [place] | | | | | | [address] | | | | | | [phone] | | | | | | | [...]
--- OUTSIDE RECORDS SUMMARY | ~2019-12-15 | XMS | Encounter Summary ---
Demographics + + + | Address | [address] | | | [place] [address] | + + + | Home Phone [...] Author + + + | Author | [facility] | + + + | Organization | [facility] [employer] [facility] | + + + | Address | Unknown | + + + | Phone | Unavailable | + + + Support + + + + + | Name | Relationship | Address | Phone | + + + + + | Yennifer Batista | ECON | [address] | | | | | [place] | | | | | [address] | | + + + + + Care Team Providers + +------+ + | Care Restaurant Hospitality Manager Name | Role | Phone | + +------+ + | Sujatha Sullivan | PCP | | | E D TECH | | | + +------+ + Encounter [...] | | at [place] [place] | [facility] | | | | | [address] | [place] [address] | | | | | Loop [facility] | | | | | | [place], [facility] | | | | | | [place] | | | | | | [address] | | | | | | [phone] | | | +--------+ + + + [...]
--- OUTSIDE RECORDS SUMMARY | ~2019-12-15 | XMS | Encounter Summary ---
Demographics + + + | Address | [address] | | | [place] [address] | + + + | Home Phone [...] + + + | Author | [facility] [employer] [facility] | + + + | Organization | [facility] [employer] [facility] | + + + | Address | Unknown | + + + | Phone | Unavailable | + + + Support + + + + + | Name | Relationship | Address | Phone | + + + + + | Yennifer Batista | ECON | [address] | | | | | [place] | | | | | [address] | | + + + + + Care Team Providers + +------+ + | Care Laborer Ammunition Assembly Name | Role | Phone | + [...] | | | | | dilatation | [place], [place] | for Health | | | | | of | [address] | and Healing, | | | | | esophageal | Phone: | Building [address] | | | | | stricture | [phone] | [place], [place] | | | | | Polyp of | Fax: | [address] | | | | | colon, | [phone] | Phone: | | | | | unspecified | | [phone] | | | | | part of | | Fax: | | | | | colon, | | [phone] | | | | | unspecified | [...] | | | | | [facility] | [address] | | | | | | [place] | [address] | | | | | | Health | Physicians | | | | | | Center | [address] [place] | | | | | | [address] | Floor | | | | | | Confederated | [place], [place] | | | | | | Way | [address] | | | | | | [place] | Phone: | | | | | | [place] [address] | [phone] | | | | | | Phone: | Fax: | | | | | | [phone] | [phone] | | | | | | Fax: | | | | | | | [phone] | | +--------+--------+ + + + + [...] | | | | [address] | [place], [place] | of esophageal | | | | Physicians Pavilion, | [address] | stricture; Severe | | | | 2nd Floor | [phone] | protein-calorie | | | | [place], [place] | | malnutrition (Sen: | | | | [address] | | less than 60% of | | | | [phone] | | standard weight) | | | [...]
--- OUTSIDE RECORDS SUMMARY | ~2019-12-15 | XMS | Encounter Summary ---
Demographics + + + | Address | [address] | | | [place] [address] | + + + | Home Phone [...] Author | [facility] [employer] [facility] | + + + | Organization | [facility] [employer] [facility] | + + + | Address | Unknown | + + + | Phone | Unavailable | + + + Support + + + + + | Name | Relationship | Address | Phone | + + + + + | Yennifer Batista | ECON | [address] | | | | | [place] | | | | | [address] | | + + + + + Care Team Providers + +------+ + | Care Digital Analyst Name | Role | Phone | [...] | Order | [address] | [place], [place] | | | | | [address] | [address] | | | | | [place] [address], | [phone] | | | | | 4th floor [place], | | | | | | [place] [address] | | | | | | [phone] | | | +--------+ + + + [...] --+ | MRN: | [facility] | | [id number] Date: 06/30/2018Patient Name: Franck Mares #: | ENDOSCOPY | | [id number] of : 1960CSN: [id number] Type: | | | AmbulatoryRoom: GI 3Procedure: ColonoscopyIndications: | | | Screening for colorectal malignant neoplasmProviders: | | | RACHELLE JONES MD (Fellow), JOMAR CONRAD MD | | | (Doctor), CHIVO DONG RN (Nurse), | | | CHERRY MEJIA RN (Nurse), GENECREST | | | GEMINI (Tnt Powder Worker)Referring MD: DAR DRAKE MDRequesting | | | [...] physician, the nurse, the | | | entry level sales representative and the distance learning technician. The procedure | | | was [...] Initiated | | | On: 06/30/2018 3:47 [facility] Letter to: ED LANDIS | [...] --+ | MRN: | [facility] | | [id number] Date: 06/30/2018Patient Name: Franck Mares #: | ENDOSCOPY | | [id number] of : 1960CSN: [id number] Type: | | | AmbulatoryRoom: GI 3Procedure: [...] physician, | | | the nurse, the entry level sales representative and the | | | distance learning technician. The procedure was verified | | [...] | | | The Olympus [id number] Endoscope #[id number] was introduced | | | through the [...] Initiated | | | On: 06/30/2018 3:45 [facility] Letter to: ED LANDIS | [...]
--- OUTSIDE RECORDS SUMMARY | ~2019-12-15 | XMS | Encounter Summary ---
Demographics + + + | Address | [address] | | | [place] [address] | + + + | Home Phone [...] + | Author | [facility] [employer] [facility] | + + + | Organization | [facility] [employer] [facility] | + + + | Address | Unknown | + + + | Phone | Unavailable | + + + Support + + + + + | Name | Relationship | Address | Phone | + + + + + | Yennifer Batista | ECON | [address] | | | | | [place] | | | | | [address] | | + + + + + Care Team Providers + +------+ + | Care Biology Teacher Name | Role | Phone | [...] | 03/23/ | Telephone | Urology at [place] | Larissa Doe, | Referral Needed | | 2013 | | [address] | Jesus Leiva MD 5 | (Cardiology preop) | | | | Mailcode: CH10U | [facility] | | | | | [facility] | [address] | | | | | and Healing, | [place] [address] | | | | | [facility] | [phone] | | | | | Floor [place], [place] | | | | | | [address] | | | | | | [phone] | | | +--------+ + + + [...]
--- OUTSIDE RECORDS SUMMARY | ~2019-12-15 | XMS | Encounter Summary ---
Demographics + + + | Address | [address] | | | [place] [address] | + + + | Home Phone [...] + + | Author | [facility] | + + + | Organization | [facility] | + + + | Address | Unknown | + + + | Phone | Unavailable | + + + Support + + + + + | Name | Relationship | Address | Phone | + + + + + | Yennifer Batista | ECON | [address] | | | | | [place] | | | | | [address] | | + + + + + Care Team Providers + +------+ + | Care Custom Van Converter Name | Role | Phone | + +------+ + | Ed Landis MD PCP | | + +------+ + Encounter Details +--------+ + + + + | Date | Type | Department | Care Team | Description | +--------+ + + + + | 05/30/ | Transcribe | EVETTE CRISOSTOMOU at [facility] | Transcribe | | | 2019 | Orders | [facility] [address] | Encounter, Provider, | | | | | [address] Mailcode: | MD [address] | | | | | [address]L [facility] | [place] [address] | | | | | Health and Healing, | | | | | | Building [address] | | | | | | [place], [place] | | | | | | [address] | | | | | | [phone] | | | +--------+ + + + [...]
--- OUTSIDE RECORDS SUMMARY | ~2019-12-15 | XMS | Encounter Summary ---
Demographics + + + | Address | [address] | | | [place] [address] | + + + | Home Phone [...] Author + + + | Author | [facility] [employer] [facility] | + + + | Organization | [facility] [employer] [facility] | + + + | Address | Unknown | + + + | Phone | Unavailable | + + + Support + + + + + | Name | Relationship | Address | Phone | + + + + + | Yennifer Batista | ECON | [address] | | | | | [place] | | | | | [address] | | + + + + + Care Team Providers + +------+ + | Care Digital Content Coordinator Name | Role | Phone | + +------+ + | Sujatha Sullivan | PCP | | | CAR KNOCKER | | | + +------+ + Reason [...] | | | | | Arrhythmia | [facility] [place] | [place] | | | | | NS[place] | [address] | Building, 2nd | | | | | (nonsustaine | Phone: | floor | | | | | d | [phone] | [place], [place] | | | | | ventricular | Fax: | [address] | | | | | tachycardia) | [phone] | Phone: | | | | | (HCC) | | [phone] | | | | | Procedures | [...] | | | | | Arrhythmia | Adirana Restrepo, | Arrhythmia Ep | | | | | [place] | PA-C [address] | [address] | | | | | (dyspnea on | [address] | [address] | | | | | exertion) | [facility] [place] | Mailcode: | | | | | NSVT | [address] | [facility] | | | | | (nonsustaine | Phone: | for Health | | | | | d | [phone] | and Healing, | | | | | ventricular | Fax: | Building 1, | | | | | tachycardia) | [phone] | 7th Floor | | | | | (HCC) | | [place], [place] | | | | | Procedures | | [address] | | | | | CONSULT TO | | Phone: | | | | | CARDIOLOGY | | [phone] | | | | | | | Fax: | | | | | | | [phone] | +--------+--------+ + + + + Diagnostic [...] | | Preop | Adriana Restrepo, | [facility] [address] | | | | | cardiovascul | PA-C [address] | [address] | | | | | ar exam | [address] | [place] | | | | | Arrhythmia | [place], [place] | [place] | | | | | [place] (dyspnea | [address] | Building, 2nd | | | | | on | Phone: | floor | | | | | exertion) | [phone] | [place], [place] | | | | | Procedures | Fax: | [address] | | | | | STRESS | [phone] | Phone: | | | | | ECHOCARDIOGR | | [phone] | | | | | AM, CONVERT [...] | 2013 | Visit | Preventive at [facility] | RASHI Restrepo [address] | exam (Primary Dx); | | | | [address] | [address] [place], | Arrhythmia; [place] | | | | Mailcode: CH9A | [place] [address] | (dyspnea on | | | | [place] for [facility] | [phone] | exertion); NSVT | | | | and Healing, | | (nonsustained | | | | Building 1 | | ventricular | | | | [place], [place] | | tachycardia) (HCC) | | | | [address] | | | | | | [phone] | | | +--------+---------+ + + + [...] and cardiac test results from admission to [facility] [place] in 2009 Schedule exercise echocardiogram 48 hour [...] 1 Rate of cardiac , non fatal MD, non fatal cardiac arrest 0 risk factors - 0.4% (very low) 1 risk factors - 0.9% (low) 2 risk factors - 6.6%, (moderate) 3 or >risk factors - 11% (high Final Preoperative Recommendations: Records reviewed from [facility] from admission on 12/17/2010-12/19/2010 for chest pain. Patient ruled out. Had history of chronic alcoholism, GERD and esophageal erosions. Ot her admission was on 02/03/2011-02/05/2011 for grand-mal seizure from snorting Wellbutrin and alcohol withdrawal. No evidence of prior MD or CAD by records or by recent [...] "irratic heartbeat". Reports he went to hospital ([facility] [place])for 4 days - did tests but he [...] Relation Anesthesia Neg Hx Heart Disease Father MD age 40's History Substance Use Topics Smoking [...] 0.72 03/21/2014 GLU 81 03/21/2014 ECG 11/18/2013 ([facility]) - Sinus rhythm with sinus arrhytmia. [...] 1 Rate of cardiac , non fatal MD, non fatal cardiac arrest 0 risk factors [...] 07/03/2014. he has vague history of possible MD by patient report, undergoing Intermediate risk surgery, with good reported exercise toleranc e but with COHEN with sustained effort..History more suggestive of atrial fibrillation, but po ssible he could have had MD. On no cardiac medications at this point. Given that he is such a vague historian, with no source records to confirm history, I would consider stress testin g. No further symptoms of palpitations, but could have occult PAF. Will need all progress notes and cardiac test results from admission to [facility] [place] in 2009 Schedule exercise echocardiogram 48 hour [...] [address] Mailcode: [id number] [place] [address] documented in t his encounter [...] DEPT OF | [address] | [place], [place] | | | CARDIOLOGY | [address] | [address] | | + + + + + [...]
--- OUTSIDE RECORDS SUMMARY | ~2019-12-15 | XMS | Encounter Summary ---
Demographics + + + | Address | [address] | | | [place] [address] | + + + | Home Phone [...] Author + + + | Author | [facility] [facility] | + + + | Organization | [facility] [email or web address] [facility] | + + + | Address | Unknown | + + + | Phone | Unavailable | + + + Support + + + + + | Name | Relationship | Address | Phone | + + + + + | Yennifer Batista | ECON | [address] | | | | | [place] | | | | | [address] | | + + + + + Care Team Providers + +------+ + | Care Plug Maker Name | Role | Phone | [...] + + | 06/30/ | Hospital | [facility] [address] | Jomar Conrad MD | | | 2018 | Encounter | [address] | [address] [facility] | | | | | [facility] | [facility] | | | | | [place] | [place] [address] | | | | | ([facility]) | [phone] | | | | | [place], [place] | | | | | | [address] | | | | | | [phone] | | | +--------+ + + + [...] hours or on weekends and holiday Hospital Vacuum Closing Machine Operator toll free [phone]. [phone] and have the GI doctor electrical controls engineer paged. The provider who performed your procedure: [...] --+ | MRN: | [facility] | | [id number] Date: 06/30/2018Patient Name: Franck Mares #: | ENDOSCOPY | | [id number] of : 1960CSN: [id number] Type: | | | AmbulatoryRoom: GI 3Procedure: ColonoscopyIndications: | | | Screening for colorectal malignant neoplasmProviders: | | | RACHELLE JONES MD (Fellow), JOMAR CONRAD MD | | | (Doctor), CHIVO DONG RN (Nurse), | | | CHERRY MEJAI RN (Nurse), GENECREST | | | GEMINI (Regional Climate Change Analyst)Referring MD: REMIGIO DRAKE, MDRequesting | | | [...] physician, the nurse, the | | | estimator jewelry and the multi craft maintenance technician. The procedure | | | was [...] Initiated | | | On: 06/30/2018 3:47 [facility] Letter to: ED LANDIS | [...] --+ | MRN: | [facility] | | [id number] Date: 06/30/2018Patient Name: Franck Mares #: | ENDOSCOPY | | [id number] of : 1960CSN: [id number] Type: | | | AmbulatoryRoom: GI 3Procedure: [...] physician, | | | the nurse, the estimator jewelry and the | | | multi craft maintenance technician. The procedure was verified | | [...] | | | The Olympus [id number] Endoscope #[id number] was introduced | | | through the [...] portions.JOMAR | | | MD ANAMARIA06/30/2018 4:43:02 [facility] been signed | | | electronically.RACHELLE JONES MDNumber of Addenda: 0Note Initiated | | | On: 06/30/2018 3:45 [facility] Letter to: ED LANDIS | [...]
--- OUTSIDE RECORDS SUMMARY | ~2019-12-15 | XMS | Encounter Summary ---
Demographics + + + | Address | [address] | | | [place] [address] | + + + | Home Phone [...] + + + | Author | [facility] | + + + | Organization | [facility] [employer] [facility] | + + + | Address | Unknown | + + + | Phone | Unavailable | + + + Support + + + + + | Name | Relationship | Address | Phone | + + + + + | Yennifer Batista | ECON | [address] | | | | | [place] | | | | | [address] | | + + + + + Care Team Providers + +------+ + | Care Property Valuer Name | Role | Phone | [...] Pharmacy | | | | | | [address] | | | | | | [place], [place] | | | | | | [address] | | | | | | [phone] | | | +--------+ + + + [...]
--- OUTSIDE RECORDS SUMMARY | ~2019-12-15 | XMS | Encounter Summary ---
Demographics + + + | Address | [address] | | | [place] [address] | + + + | Home Phone [...] Author | [facility] [employer] [facility] | + + + | Organization | [facility] [employer] [facility] | + + + | Address | Unknown | + + + | Phone | Unavailable | + + + Support + + + + + | Name | Relationship | Address | Phone | + + + + + | Yennifer Batista | ECON | [address] | | | | | [place] | | | | | [address] | | + + + + + Care Team Providers + +------+ + | Care News Agent Name | Role | Phone | [...] [id number] | | | | | | [facility] | | | | | | [address] [place], [place] | | | | | | [address] | | | | | | [phone] | | | +--------+ + + + [...] RN | | IV | Positive; 06/30/18; 6850; | | | | | Discharge | [...] perfume, lotions or powder. Remove any nail [facility] lucian from at least one fingernail. Do not [...] Time: Someone from your surgeon's office or [facility] will provide you with information regarding your [...] it is after office hours, call the [facility] pipe smoker machine operator at [phone] and ask them to page your doc tor. documented in this encounter Plan of Treatment Not on filedocumented as of this encounter Visit Diagnoses Not on filedocumented in this encounter"
--- OUTSIDE RECORDS SUMMARY | ~2019-12-15 | XMS | Encounter Summary ---
Demographics + + + | Address | [address] | | | [place] [address] | + + + | Home Phone [...] + + | Author | [facility] | + + + | Organization | [facility] [employer] [facility] | + + + | Address | Unknown | + + + | Phone | Unavailable | + + + Support + + + + + | Name | Relationship | Address | Phone | + + + + + | Yennifer Batista | ECON | [address] | | | | | [place] | | | | | [address] | | + + + + + Care Team Providers + +------+ + | Care Marketing Producer Name | Role | Phone | + +------+ + | Leidy Grullon MD | PCP | | + +------+ + Encounter Details +--------+ + + + + | Date | Type | Department | Care Team | Description | +--------+ + + + + | 03/21/ | Abstract | Cardiology | Adriana Holly | | | 2013 | | Preventive at [facility] | RASHI Restrepo [address] | | | | | [address] | [address] [place], | | | | | Mailcode: CH9A | [place] [address] | | | | | [facility] | [phone] | | | | | and [place], | | | | | | [address] | | | | | | [place], [place] | | | | | | [address] | | | | | | [phone] | | | +--------+ + + + [...]
--- OUTSIDE RECORDS SUMMARY | ~2019-12-15 | XMS | Encounter Summary ---
Demographics + + + | Address | [address] | | | [place] [address] | + + + | Home Phone [...] | Author | [facility] | + + + | Organization | [facility] [employer] [facility] | + + + | Address | Unknown | + + + | Phone | Unavailable | + + + Support + + + + + | Name | Relationship | Address | Phone | + + + + + | Yennifer Batista | ECON | [address] | | | | | [place] | | | | | [address] | | + + + + + Care Team Providers + +------+ + | Care Bar Host/Hostess Name | Role | Phone | + +------+ + | Ed Landis MD PCP | | + +------+ + Encounter Details +--------+ + + + + | Date | Type | Department | Care Team | Description | +--------+ + + + + | 08/31/ | Media Center Assistant | Urology at [facility] | [place], , | Adrenal mass (HCC) | | 2015 | | [address] | [address] | (Primary Dx) | | | | Mailcode: CH10U | [place] [address] | | | | | [facility] | [phone] | | | | | and Healing, | | | | | | [address] | | | | | | [place], [place] | | | | | | [address] | | | | | | [phone] | | | +--------+ + + + [...] | | | LABORATORY | | | FILIPINO | | | SERVICES, | | | [...] + + | Study patient Please page [phone] when the patient arrive at the | [facility] | | lab. GFR is estimated using [...] | + + + + + | [employer] | [address] | [place] [address] | | | SERVICES, CORE | [address] | | | + + + + + documented in this encounter Visit Diagnoses + + | Diagnosis | + + | 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"
--- OUTSIDE RECORDS SUMMARY | ~2019-12-15 | XMS | Encounter Summary ---
Demographics + + + | Address | [address] | | | [place] [address] | + + + | Home Phone [...] | [facility] [employer] [facility] | + + + | Organization | [facility] [employer] [facility] | + + + | Address | Unknown | + + + | Phone | Unavailable | + + + Support + + + + + | Name | Relationship | Address | Phone | + + + + + | Yennifer Batista | ECON | [address] | | | | | [place] | | | | | [address] | | + + + + + Care Team Providers + +------+ + | Care Saw Offbearer Name | Role | Phone | + +------+ + | Sujatha Sullivan PCP | | | DIRECTOR OF GOLF | | | + +------+ + Reason [...] | | 2014 | | Preventive at [facility] | [address] | (Periorperative risk | | | | [address] | [address] [place], | ) | | | | Mailcode: [facility] | [place] [address] | | | | | [facility] | [phone] | | | | | and [place], | | | | | | [address] | | | | | | [place], [place] | | | | | | [address] | | | | | | [phone] | | | +--------+ + + + [...]
--- OUTSIDE RECORDS SUMMARY | ~2019-12-15 | XMS | Encounter Summary ---
Demographics + + + | Address | [address] | | | [place] [address] | + + + | Home Phone [...] | Author | [facility] [facility] | + + + | Organization | [facility] [employer] [facility] | + + + | Address | Unknown | + + + | Phone | Unavailable | + + + Support + + + + + | Name | Relationship | Address | Phone | + + + + + | Yennifer Batista | ECON | [address] | | | | | [place] | | | | | [address] | | + + + + + Care Team Providers + +------+ + | Care Power Generation Engineer Name | Role | Phone | [...] [address] | | | | | | [place], [place] | | | | | | [address] | | | +--------+ + + + [...]
--- OUTSIDE RECORDS SUMMARY | ~2019-12-15 | XMS | Encounter Summary ---
Demographics + + + | Address | [address] | | | [place] [address] | + + + | Home Phone [...] Author | [facility] [employer] [facility] | + + + | Organization | [facility] [employer] [facility] | + + + | Address | Unknown | + + + | Phone | Unavailable | + + + Support + + + + + | Name | Relationship | Address | Phone | + + + + + | Yennifer Batista | ECON | [address] | | | | | [place] | | | | | [address] | | + + + + + Care Team Providers + +------+ + | Care Cylinder Checker Name | Role | Phone | + [...] + + | 08/11/ | Hospital | [facility] GI PROCEDURE | Frederic Kohler | | | 2017 | Encounter | [address] | MD Kiesha,MP[address] | | | | | [address] Mailcode: [facility] | [address] | | | | | [facility] | [place] [address] | | | | | Health and Healing, | [phone] | | | | | [address] [place] [address] | | | | | | [place], [place] | | | | | | [address] | | | | | | [phone] | | | +--------+ + + + [...] encounter Discharge Instructions Instructions Kemar IvetJARROD - 08/11/2016[place] Care Instructions after EGD (Upper Endoscopy) You [...] hours or on weekends and holiday [facility] [place] toll free [phone]. [phone] and have the GI doctor button cutting machine operator paged. The provider who performed your [...] Frederic Kohler, | | | Sonam, M.P.[facility] Division of Gastroenterology & Hepatology | [...]
[~2019-12-15 13:10] MED LIST changes: +MAGNESIUM100 MG PO; +NUTRITIONAL DR420 GM; +VENTOLIN HFA18 GM
--- OUTSIDE RECORDS SUMMARY | 2019-12-15 13:14 | XMS ---
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 \T\middot;\ T\nbsp; [facility] CAN SEE PATIENTS SAME DAY FOR APTS IF PATIENT CALLS FIRST THING IN THE MORNING. 11/11/2017 [facility] - Patient was recently seen by PCP on 11/02/17. Pain is currently being managed by PCP Dr Landis. - Recently prescribed 10 hydrocodone 5/325 on 11/02/17 by PCP. - Patient currently has a referral to a GI doctor at [facility] since patient does not want to [...] providing care. E.D. VISIT COUNT (12 MO.) 5 [facility] TOTAL 5 NOTE: Visits indicate total known visits. ED/UCC VISIT TRACKING (12 MO.) 12/15/2019 13:[facility] [place] TYPE: Emergency COMPLAINT: - ABDOMINAL PAIN 09/06/2019 19:05 [facility] [place] TYPE: Emergency COMPLAINT: - ABD PAIN/ INJ 07/17/2019 09:52 [facility] [place] TYPE: Emergency COMPLAINT: - STOMACH PAIN, VOMITING DIAGNOSES: - Other custodial (current) drug therapy - Upper abdominal pain, unspecified - Acute gastritis without bleeding - Allergy status to other drugs, medicaments and biological sub - Allergy to other foods 04/11/2019 12:11 [facility] [place] TYPE: Emergency COMPLAINT: - ABD PAIN, VOMITING DIAGNOSES: - Vomiting, unspecified - Epigastric pain - Allergy to other foods - 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 - Allergy status to analgesic agent status 01/31/2019 11:24 [facility] [place] TYPE: Emergency COMPLAINT: - ABD PAIN DIAGNOSES: - Allergy status to analgesic agent status - Spinal muscular atrophy, unspecified - Allergy to other foods - Anemia, unspecified - Unspecified abdominal pain - Acute gastritis without bleeding INPATIENT VISIT TRACKING (12 MO.) 09/07/2019 10:[facility] [place] TYPE: Medical Surgical COMPLAINT: - SMALL BOWEL OBST DIAGNOSES: - Cachexia - Body mass index (BMI) 19.9 or less, adult - Unspecified viral hepatitis C without hepatic coma - Allergy status to other drugs, medicaments and biological sub - Gastro-esophageal reflux disease without esophagitis - Gastro-esophageal reflux disease without esophagitis - Unspecified viral hepatitis C without hepatic coma - Intestinal adhesions [bands], unspecified as to partial versu - Cachexia - Other custodial (current) drug therapy - Unspecified intestinal obstruction, unspecified as to partial - Body mass index (BMI) 19.9 or less, adult - Chronic vascular disorders of intestine - Chronic vascular disorders of intestine - Allergy status to other drugs, medicaments and biological sub - 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
[2019-12-15] MEDS ORDERED: ONDANSETRON ODT8 MG PO (14:54)
== END 2019-12-15 15:25 | disposition home or self-care (01) ==
LOC: ED 13:10
DX: K59.00 Constipation, unspecified (principal); D64.9 Anemia, unspecified; Z91.013 Allergy to seafood; Z88.6 Allergy status to analgesic agent; Z91.018 Allergy to other foods; Z79.899 Other long term (current) drug therapy
CPT/HCPCS: 71046; 74018; 80053; 81001; 83690; 83735; 85025; 96361; 96374; 96375; 99284-25; J1170; J2405; J7030

== ENCOUNTER → 2020-04-01 | Emergency (ER) | payer OTHER ==
[~2020-04-01] VITALS: Ht 165.1 cm; Wt 45.6 kg
--- OUTSIDE RECORDS SUMMARY | ~2020-04-01 | XMS | Encounter Summary ---
Demographics + + + | Address | [address] | | | [place] [address] | + + + | Home Phone | | + + + | Preferred Language | Unknown | + + + | Marital Status | Single | + + + | Buddhist Affiliation | ZEFERINO | + + + | Race | or | + + + | Ethnic Group | Not or | + + + Author + + + | Author | [facility] | + + + | Organization | [facility] [employer] [facility] | + + + | Address | Unknown | + + + | Phone | Unavailable | + + + Support + + + + + | Name | Relationship | Address | Phone | + + + + + | Yennifer Batista | ECON | [address] | | | | | [place] | | | | | [address] | | + + + + + Care Team Providers + +------+ + | Care Retail Equipment Associate Name | Role | Phone | + +------+ + | Ed Landis MD PCP | | + +------+ + Reason for Visit + +--------+ + | Reason | Onset | Comments | | | Date | | + +--------+ + | Medical Records | 03/13/ | | | Review | 2020 | | + +--------+ + Encounter Details +--------+ + + + + | Date | Type | Department | Care Team | Description | +--------+ + + + + | 03/13/ | Abstract | Digestive Health | Clinic, | Medical Records | | 2020 | | Center at [facility] [address] | Gastroenterology | Review | | | | [facility] | | | | | | [facility] and | | | | | | [facility], [facility] [address] | | | | | | [place], [place] | | | | | | [address] | | | | | | [phone] | | | +--------+ + + + [...] on file | | + + + documented as of this encounter Plan of Treatment Not on filedocumented as of this encounter Visit Diagnoses Not on filedocumented in this encounter"
--- OUTSIDE RECORDS SUMMARY | ~2020-04-01 | XMS | Encounter Summary ---
Demographics + + + | Address | [address] | | | [place] [address] | + + + | Home Phone | | + + + | Preferred Language | Unknown | + + + | Marital Status | Single | + + + | Quaker Affiliation | ZEFERINO | + + + | Race | or | + + + | Ethnic Group | Not or | + + + Author + + + | Author | [facility] | + + + | Organization | Replaced By [facility] [employer] [facility] | + + + | Address | Unknown | + + + | Phone | Unavailable | + + + Support + + + + + | Name | Relationship | Address | Phone | + + + + + | Yennifer Batista | ECON | [address] | | | | | [place] | | | | | [address] | | + + + + + Care Team Providers + +------+ + | Care Grounds Foreman Name | Role | Phone | + +------+ + | Sujatha Sullivan | PCP | | | CANCER PROGRAM CONSULTANT | | | + +------+ + Reason for Visit +--------+ + | Reason | Comments | +--------+ + | Preop | | +--------+ + AUTH/CERT +--------+--------+ + + + + | Status | Reason | Specialty | Diagnoses / | Referred By | Referred To | | | | | Procedures | Contact | Contact | +--------+--------+ + + + + | Closed | | | | | | +--------+--------+ + + + + Encounter Details +--------+---------+ + + + | Date | Type | Department | Care Team | Description | +--------+---------+ + + + | 06/02/ | Office | Urology at [facility] | Theresa Beyer, | Adrenal mass, left | | 2013 | Visit | [address] | [address] | ([facility]) (Primary Dx) | | | | Mailcode: CH10U | [place], [place] [address] | | | | | [place] for [facility] | [phone] | | | | | and [place], | | | | | | | | | | | | Floor [place], [place] | | | | | | [address] | | | | | | [phone] | | | +--------+---------+ + + + Social History + + [...] + + + | Blood Pressure | 114/97 | 06/02/2014 4:06 PM | | | | | PST | | + + + + + | Pulse | 107 | 06/02/2014 4:06 PM | | | | | PST | | + + + + + | Temperature | - | - | | + + + + + | Respiratory Rate | 16 | 06/02/2014 4:06 PM | | | | | PST | | + + + + + | Oxygen Saturation | - | - | | + + + + + | Inhaled Oxygen | - | - | | | Concentration | | | | + + + + + | Weight | 65.3 kg (144 lb) | 06/02/2014 4:06 PM | | | | | PST | | + + + + + | Height | - | - | | + + + + + | Body Mass Index | 23.96 | 06/02/2014 2:03 PM | | | | | PST | | + + + + + documented in this encounter Patient Instructions Patient Instructions Rafiq Byrnes, Cristi Caruso - 06/02/2014 4:31 PM PSTPresurgical Preparation fo r Urologic Surgery: This is accomplished by adhering to: 1) a limited diet 2) drinking a special laxative 3) Hibiclen's body wash Your surgeon has chosen the best preparation for you as indicated by the items below: 1. Diet Adhere to a clear liquid diet all day the day prior to surgery. Clear liquids are any liqu id you can see through and which has no pulp in it. Examples of this diet are: Water, Helen lokesh, Lemon-thlopthlocco tribal town soft drinks, Apple juice, Tea or c offee without creamer, Gatorade/sports drinks, Jell-O, Broth soups, Popsicle. 2. Laxative: These laxatives are liquids and are taken by mouth. They will stimulate bowel movements. Magnesium Citrate. Drink 1 bottle(s) of magnesium citrate at 12:00pm (or, the early aftern oon) the day before your surgery. Stay close to the bathroom. This is purchased over the co Tech in [place]. 3. Hibiclen's (This soap will be provided to you by the anesthesia department before surg walt) The night prior to surgery please wash your body from the neck down with 1/2 of the Hibicle n's body wash soap. The morning of surgery please wash your body from the neck down with the rest of the Hibicl en's body wash soap. IMPORTANT: Nothing to eat or drink after midnight prior to your surgery (this includes water!). You m ay take your heart and/or blood pressure medications with a sip of water the morning of surg walt unless otherwise directed by your physician. If you are taking aspirin, ibuprofen, blood thinners, or other medications that may cause b leeding problems please stop such medications 7 days (1 week) before your surgery. Consult y our primary care provider or coagulation clinic to assist you with temporarily stopping bloo d thinners. If you are taking rivaroxaban (Xarelto), apixaban (Eliquis), or Pradaxa, please stop taking these medications 24 hours prior to the scheduled procedure. PRIOR TO STOPPING THIS MEDICAT ION IT IS IMPORTANT TO CONSULT WITH THE Prescribing provider WHO PRESCRIBED IT FOR YOU. If you cannot complete your bowel preparation as directed above, please contact the urology office at . After hours and on weekends, please call and ask to speak to the Urology Resident who is business liaison officer. documented in this encounter Progress Notes Theresa Beyer MD - 06/02/2014 5:11 PM PSTI saw Mr. Batista today. He is a patient with a la rge left adrenal mass who was scheduled with Dr. Aiken for surgery, but did not show. He had his preop visit with anesthesia today. He is having a cardiac stress test with them prior to clearance. Mr. Batista has a soft abdomen, and I can palpate somewhat a left upper abdomen mass. This was quite tender to him. I repeated the surgical discussion with special attention to the risks and benefits of the procedure. He signed his consent and will be scheduled for surgery in upcoming months. A clary HULL discussion took place. I spent a total of 25 minutes with the patient, over half of which was spent in counseling and coordination of care. documented in this en counter Miscellaneous Notes Scan - Rohit, Faculty - 06/05/2014 7:58 PM PSTElectronically signed by Faculty Other at 7:58 PM PSTdocumented in this encounter Plan of Treatment Not on filedocumented as of this encounter Visit Diagnoses + + | Diagnosis | + + | Adrenal mass, left (HCC) - Primary Unspecified disorder of adrenal glands | + + documented in this encounter"
--- OUTSIDE RECORDS SUMMARY | ~2020-04-01 | XMS | Encounter Summary ---
Demographics + + + | Address | [address] | | | [place] [address] | + + + | Home Phone | | + + + | Preferred Language | Unknown | + + + | Marital Status | Single | + + + | Shinto Affiliation | ZEFERINO | + + + | Race | or | + + + | Ethnic Group | Not or | + + + Author + + + | Author | [facility] | + + + | Organization | [facility] | + + + | Address | Unknown | + + + | Phone | Unavailable | + + + Support + + + + + | Name | Relationship | Address | Phone | + + + + + | Yennifer Batista | ECON | [address] | | | | | [place] | | | | | [address] | | + + + + + Care Team Providers + +------+ + | Care Co Op Name | Role | Phone | + +------+ + | Ed Landis MD | PCP | | + +------+ + Encounter Details +--------+ + + + + | Date | Type | Department | Care Team | Description | +--------+ + + + + | 07/10/ | Results | [facility] [address] | [facility] | | | 2010 | Only | [address] | [phone] | | | | | [place] | | | | | | [phone] | | | +--------+ + + + + Social History + +-------+ +--------+------+ | Tobacco Use | Types | Packs/Day | Years | Date | | | | | Used | | + +-------+ +--------+------+ | Never Assessed | | | | | + +-------+ +--------+------+ + + + | Sex Assigned at | Date Recorded | | | | + + + | Not on file | | + + + documented as of this encounter Plan of Treatment Not on filedocumented as of this encounter Procedures + +--------+ + + + | Procedure Name | Priori | Date/Time | Associated Diagnosis | Comments | | | ty | | | | + +--------+ + + + | CHEST 2 VIEW [id number] | Routin | 07/10/2011 | | Results for this | | | e | 1:30 PM | | procedure are in the | | | | PST | | results section. | + +--------+ + + + documented in this encounter Results CHEST 2 VIEW 65067 (07/10/2011 1:30 PM PST) + + | Specimen | + + | | + + + + + | Narrative | Performed At | + + + | EXAM: TWO VIEW CHEST X-RAY CLINICAL HISTORY: Allergic to PPD, | [facility] | | evaluate for active TB. COMPARISON: None available TECHNIQUE: PA and | DEPARTMENT OF | | lateral views of the chest were obtained. FINDINGS: There is no | RADIOLOGY | | cardiomegaly, parenchymal infiltrate, parenchymal scarring, calcified | | | adenopathy, pneumothorax, pleural effusion, CHF or pulmonary edema. | | | IMPRESSION: No acute cardiopulmonary process. No evidence of | | | active TB. | | + + + + + | Procedure Note | + + | Interface, Radiology Results - 03/02/2015 11:53 AM PDT EXAM: TWO VIEW CHEST X-RAY | | CLINICAL HISTORY: Allergic to PPD, evaluate for active TB. | | COMPARISON: None available | | TECHNIQUE: PA and lateral views of the chest were obtained. | | FINDINGS: There is no cardiomegaly, parenchymal infiltrate, | | parenchymal scarring, calcified adenopathy, pneumothorax, pleural | | effusion, CHF or pulmonary edema. | | IMPRESSION: No acute cardiopulmonary process. No evidence of | | active TB. | + + + +---------+ + + | Performing | Address | City/State/Zipcode | Phone Number | | Organization | | | | + +---------+ + + | [facility] DEPARTMENT OF | | | | | RADIOLOGY | | | | + +---------+ + + documented in this encounter Visit Diagnoses Not on filedocumented in this encounter"
--- OUTSIDE RECORDS SUMMARY | ~2020-04-01 | XMS | Encounter Summary ---
Demographics + + + | Address | [address] | | | [place] [address] | + + + | Home Phone | | + + + | Preferred Language | Unknown | + + + | Marital Status | Single | + + + | Christian Affiliation | ZEFERINO | + + + | Race | or | + + + | Ethnic Group | Not or | + + + Author + + + | Author | [facility] [employer] [facility] | + + + | Organization | [facility] [employer] [facility] | + + + | Address | Unknown | + + + | Phone | Unavailable | + + + Support + + + + + | Name | Relationship | Address | Phone | + + + + + | Yennifer Batista | ECON | [address] | | | | | [place] | | | | | [address] | | + + + + + Care Team Providers + +------+ + | Care State Manager Name | Role | Phone | + +------+ + | Ed Landis MD | PCP | | + +------+ + Encounter Details +--------+ + + + + | Date | Type | Department | Care Team | Description | +--------+ + + + + | 02/24/ | Inside | Endoscopic | Dar Drake MD | | | 2018 | Referral | Procedural Unit at | [address] | | | | Order | [address] | [place], [place] | | | | | [address] | [address] | | | | | [address], | [phone] | | | | | 4th floor [place], | | | | | | [place] [address] | | | | | | [phone] | | | +--------+ + + + [...] Not on filedocumented as of this encounter Results COLONOSCOPY (06/30/2018 3:47 PM PST) + + | Specimen | + + | | + + + + --+ | Narrative | Performed A t | + + --+ | MRN: | [facility] | | [id number] Date: 06/30/2018Patient Name: Franck Mares #: | ENDOSCOPY | | [id number] of : 1960CSN: [id number] Type: | | | AmbulatoryRoom: GI 3Procedure: ColonoscopyIndications: | | | Screening for colorectal malignant neoplasmProviders: | | | RACHELLE JONES MD (Fellow), JOMAR CONRAD MD | | | (Doctor), CHIVO DONG RN (Nurse), | | | CHERRY MEJIA RN (Nurse), GENECREST | | | GEMINI (Supervisor Roving)Referring MD: DAR DRAKE, MDRequesting | | | Provider: Medicines: Monitored [...] physician, the nurse, the | | | oil drilling engineer and the program technician. The procedure | | | was verified [...] portions.JOMAR | | | MD ANAMARIA06/30/2018 4:44:[facility] has been signed | | | electronically.RACHELLE JONES MDNumber of Addenda: 0Note Initiated | | | On: 06/30/2018 3:47 [facility] Letter to: ED LANDIS | | | I was present and [...] |CC Letter to: | | | ED ROSAJACQUI | | + + --+ + +---------+ [...] --+ | MRN: | [facility] | | [id number] Date: 06/30/2018Patient Name: Franck Mares #: | ENDOSCOPY | | [id number] of : 1960CSN: [id number] Type: | | | AmbulatoryRoom: GI 3Procedure: [...] physician, | | | the nurse, the oil drilling engineer and the | | | program technician. The procedure was verified | | | [...] | | | The Olympus [id number] Endoscope #[id number] was introduced | | | through the [...] Initiated | | | On: 06/30/2018 3:45 [facility] Letter to: ED LANDIS | | | [...] Initiated On: 06/30/2018 3:45 PM | | | Letter to: | | | ED LANDIS [...]
--- OUTSIDE RECORDS SUMMARY | ~2020-04-01 | XMS | Encounter Summary ---
Demographics + + + | Address | [address] | | | [place] [address] | + + + | Home Phone | | + + + | Preferred Language | Unknown | + + + | Marital Status | Single | + + + | Church Affiliation | ZEFERINO | + + + | Race | or | + + + | Ethnic Group | Not or | + + + Author + + + | Author | [facility] | + + + | Organization | [facility] | + + + | Address | Unknown | + + + | Phone | Unavailable | + + + Support + + + + + | Name | Relationship | Address | Phone | + + + + + | Yennifer Batista | ECON | [address] | | | | | [place] | | | | | [address] | | + + + + + Care Team Providers + +------+ + | Care Robotic Technician Name | Role | Phone | + +------+ + | Ed Landis MD | PCP | | + +------+ + Reason for Referral PROC - Dept/Practice Procedure (Routine) +--------+--------+ + + + + | Status | Reason | Specialty | Diagnoses / | Referred By | Referred To | | | | | Procedures | Contact | Contact | +--------+--------+ + + + + | Closed | | Gastroenterol | Diagnoses | Sha, | [facility] | | | | ogy | Benign | Dar, MD | [facility] [address] | | | | | esophageal | [address] | | | | | stricture | [address] | [place] | | | | | Gastroesopha | [place], [place] | [address] | | | | | geal reflux | [address] | floor | | | | | disease with | Phone: | [place], [place] | | | | | esophagitis | [phone] | [phone] | | | | | | Fax: | Phone: | | | | | Adenomatous | [phone] | [phone] | | | | | polyp of | | Fax: | | | | | ascending | | [phone] | | | | | colon | | | | | | | Procedures | | | | | | | CONSULT TO | | | | | | | GI PROCEDURE | | | | | | | UNIT: EGD W | | | | | | | COLONOSCOPY | | | | | | | SC UPPER | | | | | | | GI | | | | | | | ENDOSCOPY,BI | | | | | | | OPSY SC | | | | | | | COLONOSCOPY, | | | | | | | FLEX, | | | | | | | W/BIOPSY SC | | | | | | | ANES UPR | | | | | | | LWR GI NDSC | | | | | | | PX SC UP GI | | | | | | | | | | | | | | ENDOSCOPY,BA | | | | | | | LL DIL,30MM | | | +--------+--------+ + + + + Encounter Details +--------+ + + + + | Date | Type | Department | Care Team | Description | +--------+ + + + + | 02/17/ | Workers Compensation Claims Adjuster | Digestive Health | Dar Dalton MD | Benign esophageal | | 2017 | | Center at [facility] [address] | [address] | stricture (Primary | | | | [address] | [place], [place] | Dx); | | | | for Health and | [address] | Gastroesophageal | | | | Healing, [address] | [phone] | reflux disease with | | | | [facility] [place] | | esophagitis; | | | | [address] | | Adenomatous polyp of | | | | [phone] | | ascending colon | +--------+ + + + + Social [...] + + documented as of this encounter Miscellaneous Notes Telephone Encounter - Dar Dalton MD - 02/17/2018 3:16 PM PDT PROGRESS NOTE: documented in this encounter Plan of Treatment Not on filedocumented as of this encounter Visit Diagnoses + + | Diagnosis | + + | Benign esophageal stricture - Primary Stricture and stenosis of esophagus | + + | Gastroesophageal reflux disease with esophagitis | + + | Adenomatous polyp of ascending colon | + + documented in this encounter"
--- OUTSIDE RECORDS SUMMARY | ~2020-04-01 | XMS | Encounter Summary ---
Demographics + + + | Address | [address] | | | [place] [address] | + + + | Home Phone [...] Author + + + | Author | [facility] [employer] [facility] | + + + | Organization | [facility] [employer] [facility] | + + + | Address | Unknown | + + + | Phone | Unavailable | + + + Support + + + + + | Name | Relationship | Address | Phone | + + + + + | Yennifer Batista | ECON | [address] | | | | | [place] | | | | | [address] | | + + + + + Care Team Providers + +------+ + | Care Printer Assistant Name | Role | Phone | + +------+ + | Ed Landis MD PCP | | + +------+ + Encounter Details +--------+ + + + + | Date | Type | Department | Care Team | Description | +--------+ + + + + | 08/24/ | Telephone | Urology at [facility] | Theresa Beyer, | | | 2015 | | [address] | [address] [place] [address] | | | | | Mailcode: [id number] | [place] [address] | | | | | [facility] | [phone] | | | | | and [place], | | | | | | [facility] | | | | | | [place], [place] | | | | | | [address] | | | | | | [phone] | | | +--------+ + + + [...] this encounter Miscellaneous Notes Telephone Encounter - Ofe Crowder MA - 08/24/2014 11:29 AM PSTCall to pt about his path result. documented in th is encounter Plan of Treatment Not on filedocumented as of this encounter Visit Diagnoses Not on filedocumented in this encounter"
--- OUTSIDE RECORDS SUMMARY | ~2020-04-01 | XMS | Encounter Summary ---
Demographics + + + | Address | [address] | | | [place] [address] | + + + | Home Phone | | + + + | Preferred Language | Unknown | + + + | Marital Status | Single | + + + | Confucianism Affiliation | ZEFERINO | + + + | Race | or | + + + | Ethnic Group | Not or | + + + Author + + + | Author | [facility] | + + + | Organization | [facility] | + + + | Address | Unknown | + + + | Phone | Unavailable | + + + Support + + + + + | Name | Relationship | Address | Phone | + + + + + | Yennifer Batista | ECON | [address] | | | | | [place] | | | | | [address] | | + + + + + Care Team Providers + +------+ + | Care Economics Professor Name | Role | Phone | + [...] | +--------+ + + + + | 08/17/ | Anesthesia | 6A Intra Op 3181 | Rachelle Santamaria MD | | | 2015 | Event | [address] | [address] | | | | | [facility] | Shania Marinelli [place], | | | | | Hospital Admitting | [place] [address] | | | | | Desk Located on the | [phone] | | | | | 9th floor | | | | | | [facility] [place] | [place], | | | | | [address] | [address] | | | | | | [address] | | | | | | [place], [place] | | | | | | [address] | | | | | | [phone] | | | | | | | | +--------+ + + + + Anesthesia Record + + + + + | Procedure Name | Responsible | Anesthesia Start | Anesthesia Stop Time | | | Anesthesiologist | Time | | + + + + + | OPEN LEFT | Rachelle Santamaria MD | 08/17/14 1055 | 08/17/14 [...] | Meds | +------+ + + + | Name | Total | + + + | midazolam | 2 mg | + + + | fentaNYL | 350 mcg | + + + | lidocaine 2% | 60 mg | + + + | propofol | 150 mg | + + + | rocuronium | 70 mg | + + + | PHENYLephrine | 500 mcg | + + + | ePHEDrine | 10 mg | + + + | ceFAZolin | 1,000 mg | + + + | neostigmine | 5 mg | + + + | glycopyrrolate | 0.6 mg | + + + | dexamethasone | 6 mg | + + + | ondansetron (ZOFRAN) injection 4 | 4 mg | | mg | | + + + | metoprolol | 2 mg | + + + | LR | 1,400 mL | + + + | NS | 400 mL | + + + + + | Name | + + | O2 FR Avance (Total Liters) | + + | N2O FR Avance (l/min) | + + | Air FR Avance (l/min) | + + | Insp Iso | + + | Et Iso | + + | EtN2O % | + + | Insp N2O % | + + | O2 Flow Rate (Total Liters) | + + + + | No [...] + + + | RETIRE | 08/17/14; chevron; Bilateral:; | 08/17/14 0000 by | 07/25/16 0752 by | | D - | abdomen; 07/25/16; 0752 | Meghana Patrick RN | Annabelle Pierre [...] + | RETIRE | 08/17/14; 1110; 08/21/14; 09; | 08/17/14 1110 by | 08/21/14 09 by | | D - | No; 16; Right; Hand; Positive; 1; | Wesly Wilson MD | Kaye Avitia RN | | [place] | Displaced | | | | eral | | | | | Line | | | | +--------+ + + + | RETIRE | 08/17/14; 1115; 08/17/14; 1631; | 08/17/141114 by | 08/17/14 163 by | | D - | No; 20g; left, radial | Wesly Wilson MD | Della Mc, | | Yehuda | | | JARROD | | al | | | | | Line | | | | +--------+ + + + | RETIRE | 08/17/14; 1120; 08/19/14; 1939; | 08/17/141119 by | 08/19/141939 by | | D - | No; 16; Right; Hand; 1; Site | Wesly Wilson MD | David Gottlieb RN | | Periph | Problems | | | | eral | | [...] + + documented as of this encounter OR Notes Anesthesia Postprocedure Evaluation - Wesly Wilson MD - 08/17/2014 1:33 PM PST Franck Garduno [facility] [id number] Allergies Allergen Reactions Naproxen Hives Past Surgical History Procedure Laterality Date Jaw surgery 1986 [facility] Cyst removal-leg Right 1993 Lower leg Temp: 36.5 C (97.7 F) Pulse: 92 Resp: 17 BP: 140/86 mmHg SpO2: 100 % Evaluation Patient personally seen and evaluated for recovery from anesthesia care, ROS including card , resp, Neuro, and GI w/o evidence of adverse effects and VS including temperature and hydra tion status are normal Complications Other: Patient seen in PACU s/p L open adrenalectomy under epidural and GETA. Patient in PA CU with stable VS. Questionable epidural vs intrathecal catheter placement, will confirm wit h test dose with regional team. Patient with pain, improved with some IV fentanyl, also with nausea. Reports difficulty coughing due to pain. No SOB or CP. nesthesia Preprocedur e Evaluation - Oskar Pacheco MD - 08/17/2014 10:12 AM PST Franck Garduno [facility] [id number] Allergies Allergen Reactions Naproxen Hives NPO:NPO Status: since midnight Last Vitals: Temp: 36.6 C (97.9 F) Pulse: 80 Resp: 16 BP: 108/80 mmHg SpO2: 99 % O2 Delivery Device: None (room air) Preg Status/LMP: Patient Active Problem List Diagnosis Adrenal mass Past Surgical History Procedure Laterality Date Jaw surgery 1986 [facility] Cyst removal-leg Right 1993 Lower leg Current Medication List Name Sig Last Dose BUPROPION HCL SR 150 MG TABLET,SUSTAINED-RELEASE Take 150 mg by mouth two times daily. 08/16 HYDROCODONE 10 MG-ACETAMINOPHEN 325 MG TABLET Take 1 tablet by mouth every four hours as ne eded. Not to exceed 3250 mg of acetaminophen from all products per 24 hour period. Within la st 7 days LORATADINE 10 MG TABLET Take 10 mg by mouth once daily. 08/17/2014 METOPROLOL TARTRATE 25 MG TABLET Take 1 tablet by mouth two times daily. 08/17/2014 @ 0300 OMEPRAZOLE 20 MG CAPSULE,DELAYED RELEASE Take 20 mg by mouth two times daily. 08/17/2014 OXYCODONE ER 10 MG TABLET,EXTENDED RELEASE,12 HR Take 1 tablet by mouth every twelve hours. Within last 7 days PROMETHAZINE 25 MG TABLET Take 1 tablet by mouth once daily at bedtime. Within last 7 days Lab Results Component Value Date RATE 84 03/21/2014 ATRIALRATE 83 03/21/2014 FL 164 03/21/2014 QRS 78 03/21/2014 QT 372 03/21/2014 QTC 440 03/21/2014 PAXIS 57 03/21/2014 RAXIS 53 03/21/2014 TAXIS 51 03/21/2014 EKGDX Value: SINUS RHYTHM EARLY PRECORDIAL R/S TRANSITION "I have personally interpreted this report, either alone or with a trainee." Confirmed by Julian Spears ([id number]) on 03/21/2014 7:39:19 PM 03/21/2014 Preoperative Adult Anesthesia Plan Last edited 08/17/14 1011 by Oskar Pacheco MD ROS Pertinent HPI: Pulmonary: no cough URI (started 2 days ago. congested, runny nose, right ear plugged. no fevers. no cough) w/ prior 2 wks w/o fever no shortness of breath no stridor no wheezing Pt. Has no asthma No dx of sleep apnea Risks factors for sleep apnea: Pt SNORE's loudly (louder than talking) Pt. states someone has observed you STOPPING breathing during your sleep Age>50 and Male gender [...] to cardiology for further work-up. Holter and stress echo. (see cards note - 06/02/2014). Recommend he start BB. Within Defined Limits except as noted below Functional Capacity: Low no CAD no CHF no pacemaker GI/Hepatic: Intermittent nausea Within Defined Limits except as noted below GERD Control: Poorly controlled and Well controlled No liver disease no hepatitis : occas difficulty initiating starting stream Within Defined Limits except as noted below Endo: +adrenal mass Within Defined Limits except as noted below Neurological: Within Defined limits except as noted below Treatments: Treated w/medications psychiatric problem depression no pain (lower back pain - states he takes about 6 tabs x 10mg oxycodone daily, recently switched to hydrocodone) Current Pain Level: Current pain level: 4 MS: Within Defined Limits except as noted below Heme/Onc: Within Defined Limits except as noted below Pt. has: no active bleeding Skin: Within Defined Limits except as noted below Physical Exam General: Patients general appearance: Alert Head & Neck/Airway: Dentition: missing teeth Dental risk discussed with/pt : Yes Max: No Mallampati: I Neck Anatomy: Normal Jaw Protrusion: Normal, lower incisors can protrude past upper incisors Lung Exam: breath sounds normal Cardiac: Rhythm: regular murmur Abdominal: Musculoskeletal: Neuro/Psych: Integument: Implants: 1011 Anesthesia Plan Comments ASA ASA 3 NPO Status NPO Status: NPO by protocol Monitors/Lines to be used Standard and CVP Anesthetic Consideration Two large bore PIV and PONV prophylaxis Induction intravenous induction Anesthetic Technique General and Epidural; Post-Op Pain Plan Blood Products Interpretive Services Informed Consent PARQ discussed with: patient, Procedures, Alternatives, Risks, and Questions discussed and Risk/benefit of anesthesia plan and blood product discussed Code status in OR Patients Code Status in OR: FULL 08/17/2014 10:12 AM documented in this enc ounter Miscellaneous Notes Addendum Note - Oskar Pacheco MD - 08/18/2014 2:32 PM PST Addendum created 08/18/14 1432 by Oskar Pacheco MD Modules edited: Anesthesia Events, Anesthesia Medication Administration rterial Line - Sandeep Gallo MD - 08/17/2014 12:30 PM PSTProcedure ART LINE Procedure Information Inserted: After Induction 7 minutes to perform. Type Catheter: Arrow kit Indications: Beat to beat blood pressure monitoring Location Performed: OR Informed Consent: Included in anesthesia consent Protective Barrier: Cap, Mask, Hand scrub and Sterile Gloves Skin Prep: Chloraprep Draped: Partially draped Anesthesia Method: General anesthesia Insertion side: Left Insertion Site: Radial Access device: 20g Line secured by:Tape, Dressing Applied and StatLock Assessment Number of attempts: 2nd Assessment: Catheter connected to pressure line and flushed, catheter manually flushed, Grace erated procedure well and Perfusion checked distal to catheter Attending physically present Attending name: SANDEEP DONOHUE Performed by Resident Name: WESLY WILSON ne airway standar d - Wesly Wilson MD - 08/17/2014 12:29 PM PSTProcedure Reason for Intubation: For surgical procedure, Location Performed: OR , Patient was preoxyg enated Mask Ventilation Grade 0 - Ventilation by mask not attempted Rapid Sequence Induction: with cricoid Intubation Blade type: Jamie , Blade size: 3, Atraumatic laryngoscopy: Atraumatic Laryngoscopy, In tubation adjuncts: N/A , Laryngoscopic view: Grade I, Fiberoptics used: N/A , Number of Atte mpts: 1, Positive for EtCO2: Yes, ETT Ett Adult: Single-lumen cuffed ETT Size: 8 ETT secured with: adhesive tape Depth at Gums : 23 cm LMA Narrative Attending physically present Attending: SANDEEP DONOHUE Performed by Resident TONY WILSON No damage to lips, gums, or tongue. ETT passed easily through open cords. pidural Procedure - Yo Oskar roman MD - 08/17/2014 10:59 AM PSTPROCEDURE NAME Epidural or Caudal Information Epidural . Have received and accepted request from attending surgeon to offer advanced acu te pain management services to the patient Location performed: Pre-Op The patient was iden tified, the site marked,, full PARQ done Adult or Pediatric: Adult Procedure Patient position: Sitting, Epidural approach: Midline, Monitors: NIBP, SpO2 and EKG, Supplemental Oxygen Given, Sterile prep (ChloraPrep) drape a nd technique Needle Tuohy with a 17g Needle insertion depth 5.5 cm Catheter depth 11 cm on the 1st attempt Parasthesia: No. Negative for blood. Vertebral Interspace: T8-9 CSF: Aspiration negativ e for CSF, Sensory Band:Side: bilateral, Tested: Temperature sensation to cold spray, Upper Level: T4, Lower Band:L1 HUMAIRA: saline Assessment test dose given, Negative test dose reaction See MAR for Drug and Dose Complications: None, Technical Difficulty: Difficult Intended A nalgesia: Satisfactory block in appropriate fashion Sensory Assessment: Decreased in area of block Motor Assessment: Intact; Narrative Attending physically present RACHELLE SANTAMARIAPerformed by Resident: OSKAR PACHECO Pt tolerated procedure well MC/ANE PreOp Note - Wesly Marie MD - 08/17/2014 10:10 AM PST ROS Pertinent HPI: Patient is a 53 yr old man with a hx of GERD, nausea, and chronic low back p ain on opioids, who presents for open L adrenalectomy for incidentally found mass without pr esumed function. He also has a remote chronic EtOH hx and has years of an irregular heartbea t and tachycardia. He was recently evaluated by cardiology with a Holter, showing sinus tach for his baseline rhythm, stress echo neg for ischemia. Started on a beta gabbi. No prior anesthetic problems. Pulmonary: no cough URI (started 2 days ago. congested, runny nose, right ear plugged. no fevers. no cough) w/ prior 2 wks w/o fever no shortness of breath no stridor no wheezing P t. Has no asthma No dx of sleep [...] Limits except as noted below Functional Capacity: Low no CAD no CHF no pacemaker GI/Hepatic: Intermittent nausea Within Defined Limits except as noted below GERD Control: P oorly controlled No liver disease no hepatitis : occas difficulty initiating starting stream Within Defined Limits except as noted belo w Endo: +adrenal mass Within Defined Limits except as noted below Neurological: Within Defined limits except as noted below Treatments: Treated w/medication s psychiatric problem depression no pain (lower back pain - states he takes about 6 tabs x 1 0mg oxycodone daily, recently switched to hydrocodone) Current Pain Level: Current pain level: 4 MS: Within Defined Limits except as noted below Heme/Onc: Within Defined Limits except as noted below Pt. has: no active bleeding Skin: Within Defined Limits except as noted below Physical Exam General: Patients general appearance: Alert Head & Neck/Airway: Dentition: missing teeth Dental risk discussed with/pt : Yes Max: No Mallampati: I Neck Anatomy: Normal Jaw Protrusion: Normal, lower incisors can protrude past upper incisors Lung Exam: breath sounds normal Cardiac: Rhythm: regular murmur Abdominal: General Findings: Deferred Musculoskeletal: Neuro/Psych: Integument: Implants: [facility] PreOp Note - Er nst, Basilia Jensen NP - 08/04/2014 2:18 PM PST ROS Pertinent HPI: Pulmonary: no cough URI (started 2 days ago. congested, runny nose, right ear plugged. no fevers. no cough) current no shortness of breath [...] stream Within Defined Limits except as noted belo w Endo: +adrenal mass Within Defined Limits except as noted below Neurological: Within Defined limits except as noted below Treatments: Treated w/medication s psychiatric problem depression no pain (lower back pain - states he takes about 6 tabs x 1 0mg oxycodone daily, recently switched to hydrocodone) Current Pain Level: Current pain level: 4 MS: Within Defined Limits except as noted below Heme/Onc: Within Defined Limits except as noted below Pt. has: no active bleeding Skin: Within Defined Limits except as noted below Physical Exam General: Patients general appearance: Healthy, [...] > = 3 cm C-Spine: normal Neck An atomy: Thyroid cartilage not visible Jaw Protrusion: Normal, lower incisors can protrude pas t upper incisors Lung Exam: No respiratory distress. Normal breathing pattern. breath sounds normal no Re spiration Cardiac: Mild tachy; No murmurs, gallops or rubs; no peripheral edema Rhythm: regular Rate : abnormal Abdominal: General Findings: no abdominal tenderness, Nondistended and No organomegaly or mases obesity and scaphoid abdomen Bowel Sounds: bowel sounds are normal Musculoskeletal: Findings: tone normal Neuro/Psych: No focal neuro deficits; Alert; affect is delayed. Patient is a poor historian and has difficulty recalling past events. Oriented to person and place but not time. aler t Findings: No tremor and Normal gait and station Integument: Right medial davies - <0.5mm opening (hx "cyst" vs abscess that drained). No eryt axel, swelling or drainage. Color: pale Turgor: turgor normal Implants: None, Comments: Denies any personal or family hx of anesthesia complications documented in thi s encounter Plan of Treatment Not on filedocumented as of this encounter Visit Diagnoses Not on filedocumented in this encounter Administered Medications + +--------+ + +------+------+ | Medication Order | MAR | Action | Dose | Rate | Site | | | Action | Date | | | | + +--------+ + +------+------+ | ceFAZolin (ANCEF) injection | Given | 08/17/19 | 1,000 mg | | | | intravenous, INTRAPROCEDURE PRN, | | 15 11:40 | | | | | Starting Liliana 08/17/14 at 1140, | | AM PST | | | | | Until Liliaan 08/17/14 at 1318 | | | | | | + +--------+ + +------+------+ +---+---+ | | | +---+---+ + +-------+ +------+---+---+ | dexamethasone (DECADRON) | Given | 08/17/19 | 6 mg | | | | injection INTRAPROCEDURE PRN, | | 15 11:50 | | | | | Starting Liliana 08/17/14 at 1150, | | AM PST | | | | | Until Liliana 08/17/14 at 1318 | | | | | | + +-------+ +------+---+---+ +---+---+ | | | +---+---+ + +-------+ +-------+---+---+ | ePHEDrine injection | Given | 08/17/19 | 10 mg | | | | intravenous, INTRAPROCEDURE PRN, | | 15 11:55 | | | | | Starting Liliana 08/17/14 at 1155, | | AM PST | | | | | Until Liliana 08/17/14 at 1318 | | | | | | + +-------+ +-------+---+---+ +---+---+ | | | +---+---+ + +-------+ +--------+---+---+ | fentaNYL citrate (PF) | Given | 08/17/19 | 50 mcg | | | | (SUBLIMAZE) injection | | 15 1:27 | | | | | INTRAPROCEDURE PRN, Starting Liliana | | PM PST | | | | | 08/17/14 at 1103, Until Liliana | | | | | | | 08/17/14 at 1318, sedation | | | | | | + +-------+ +--------+---+---+ +-------+ +--------+---+---+ | Given | 08/17/19 | 50 mcg | | | | | 15 1:23 | | | | | | PM PST | | | | +-------+ +--------+---+---+ | Given | 08/17/19 | 50 mcg | | | | | 15 1:19 | | | | | | PM PST | | | | +-------+ +--------+---+---+ +---+---+ | | | +---+---+ + +-------+ +--------+---+---+ | glycopyrrolate (DOUG) | Given | 08/17/19 | 0.6 mg | | | | injection INTRAPROCEDURE PRN, | | 15 12:56 | | | | | Starting Liliana 08/17/14 at 1256, | | PM PST | | | | | Until Liliana 08/17/14 at 1318 | | | | | | + +-------+ +--------+---+---+ +---+---+ | | | +---+---+ + + + +---+---+---+ | lactated ringers IV | given by | 08/17/19 | | | | | INTRAPROCEDURE CONTINUOUS PRN, | | 15 1:25 | | | | | Starting [facility] 08/17/14 at 1012, | anesthes | PM PST | | | | | Until [facility] 08/17/14 at 1318 | iology | | | | | + + + +---+---+---+ + + +---+---+---+ | given by anesthesiology | 08/17/19 | | | | | | 15 12:20 | | | | | | PM PST | | | | + + +---+---+---+ | given by anesthesiology | 08/17/19 | | | | | | 15 11:51 | | | | | | AM PST | | | | + + +---+---+---+ +---+---+ | | | +---+---+ + +-------+ +-------+---+---+ | lidocaine PF (XYLOCAINE MPF) 20 | Given | 08/17/19 | 60 mg | | | | mg/mL (2 %) injection | | 15 11:03 | | | | | INTRAPROCEDURE PRN, Starting Liliana | | AM PST | | | | | 08/17/14 at 1103, Until Liliana | | | | | | | 08/17/14 at 1318 | | | | | | + +-------+ +-------+---+---+ +---+---+ | | | +---+---+ + +-------+ +------+---+---+ | metoprolol (LOPRESSOR) | Given | 08/17/19 | 1 mg | | | | injection intravenous, | | 15 12:52 | | | | | INTRAPROCEDURE PRN, Starting Liliana | | PM PST | | | | | 08/17/14 at 1247, Until Liliana | | | | | | | 08/17/14 at 1318 | | | | | | + +-------+ +------+---+---+ +-------+ +------+---+---+ | Given | 08/17/19 | 1 mg | | | | | 15 12:47 | | | | | | PM PST | | | | +-------+ +------+---+---+ +---+---+ | | | +---+---+ + +-------+ +------+---+---+ | midazolam (VERSED) injection | Given | 08/17/19 | 2 mg | | | | INTRAPROCEDURE PRN, Starting Liliana | | 15 10:15 | | | | | 08/17/14 at 1015, Until Fri | | AM PST | | | | | 08/18/14 at 1432, sedation | | | | | | + +-------+ +------+---+---+ +---+---+ | | | +---+---+ + +---------+ +---+---+---+ | NaCl 0.9 % IV INTRAPROCEDURE | New Bag | 08/17/19 | | | | | CONTINUOUS PRN, Starting Liliana | | 15 11:35 | | | | | 08/17/14 at 1135, Until Liliana | | AM PST | | | | | 08/17/14 at 1318 | | | | | | + +---------+ +---+---+---+ +---+---+ | | | +---+---+ + +-------+ +------+---+---+ | neostigmine (PROSTIGMIN) | Given | 08/17/19 | 5 mg | | | | injection intravenous, | | 15 12:56 | | | | | INTRAPROCEDURE PRN, Starting Liliana | | PM PST | | | | | 08/17/14 at 1256, Until Liliana | | | | | | | 08/17/14 at 1318 | | | | | | + +-------+ +------+---+---+ +---+---+ | | | +---+---+ + +-------+ +------+---+---+ | ondansetron (ZOFRAN) injection | Given | 08/17/19 | 4 mg | | | | 4 mg 4 mg, intravenous, EVERY 12 | | 15 12:20 | | | | | HOURS NEEDED, Starting Liliana | | PM PST | | | | | 08/17/14 at 1102, Until Liliana | | | | | | | 08/17/14 at 1653, nausea/vomiting | | | | | | + +-------+ +------+---+---+ +---+---+ | | | +---+---+ + +-------+ +---------+---+---+ | PHENYLEPHrine 100 mcg/mL | Given | 08/17/19 | 100 mcg | | | | injection (OR syringe) | | 15 12:21 | | | | | intravenous, INTRAPROCEDURE PRN, | | PM PST | | | | | Starting Liliana 08/17/14 at 1131, | | | | | | | Until Liliana 08/17/14 at 1318 | | | | | | + +-------+ +---------+---+---+ +-------+ +---------+---+---+ | Given | 08/17/19 | 100 mcg | | | | | 15 12:10 | | | | | | PM PST | | | | +-------+ +---------+---+---+ | Given | 08/17/19 | 100 mcg | | | | | 15 11:55 | | | | | | AM PST | | | | +-------+ +---------+---+---+ +---+---+ | | | +---+---+ + +-------+ +-------+---+---+ | propofol INTRAPROCEDURE PRN, | Given | 08/17/19 | 20 mg | | | | Starting Liliana 08/17/14 at 1103, | | 15 1:02 | | | | | Until Liliana 08/17/14 at 1318 | | PM PST | | | | + +-------+ +-------+---+---+ +-------+ +--------+---+---+ | Given | 08/17/19 | 130 mg | | | | | 15 11:03 | | | | | | AM PST | | | | +-------+ +--------+---+---+ +---+---+ | | | +---+---+ + +-------+ +-------+---+---+ | rocuronium (ZEMURON) injection | Given | 08/17/19 | 20 mg | | | | INTRAPROCEDURE PRN, Starting Liliana | | 15 12:05 | | | | | 08/17/14 at 1103, Until Liliana | | PM PST | | | | | 08/17/14 at 1318, Neuromuscular | | | | | | | block | | | | | | + +-------+ +-------+---+---+ +-------+ +-------+---+---+ | Given | 08/17/19 | 50 mg | | | | | 15 11:03 | | | | | | AM PST | | | | +-------+ +-------+---+---+ +---+---+ | | | +---+---+ documented in this encounter
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
--- OUTSIDE RECORDS SUMMARY | ~2020-04-01 | XMS | Encounter Summary ---
Demographics + + + | Address | [address] | | | [place] [address] | + + + | Home Phone | | + + + | Preferred Language | Unknown | + + + | Marital Status | Single | + + + | Judaism Affiliation | ZEFERINO | + + + | Race | or | + + + | Ethnic Group | Not or | + + + Author + + + | Author | [facility] | + + + | Organization | [facility] [employer] [facility] | + + + | Address | Unknown | + + + | Phone | Unavailable | + + + Support + + + + + | Name | Relationship | Address | Phone | + + + + + | Yennifer Batista | ECON | [address] | | | | | [place] | | | | | [address] | | + + + + + Care Team Providers + +------+ + | Care Hoop Maker Helper Machine Name | Role | Phone | + +------+ + | Sujatha Sullivan | PCP | | | TECHNICAL ACCOUNT MANAGER | | | + +------+ + Encounter Details +--------+ + + + + | Date | Type | Department | Care Team | Description | +--------+ + + + + | 06/07/ | Hospital | Cardiac | Sjh, Car Ecg Tech | | | 2013 | Encounter | Non-Invasive Testing | [address] | | | | | at [address] [place] | [facility] | | | | | [address] | [place] [address] | | | | | [facility] | | | | | | [place], [facility] floor | | | | | | [place], [place] | | | | | | [address] | | | | | | [phone] | | | +--------+ + + + [...] + + documented as of this encounter Medications at Time of Discharge [...] +---------+--------+ + documented as of this encounter Procedure Gloria Bee, Faculty - 06/27/2014 3:05 PM PSTAssociated Order(s): ORDERS OTHERElectronically sig nile by Faculty Other at 06/27/2014 3:05 PM PSTdocumented in this encounter Plan of Treatment Not on filedocumented as of this encounter Procedures + +--------+ + + + | Procedure Name | Priori | Date/Time | Associated Diagnosis | Comments | | | ty | | | | + +--------+ + + + | ORDERS OTHER | | 06/07/2014 | | Results for this | | | | 12:00 AM | | procedure are in the | | | | PST | | results section. | + +--------+ + + + documented in this encounter Results ORDERS OTHER (06/07/2014 12:00 AM PST) + + + | Narrative | Performed At | + + + | | | | | | + + + + + | Procedure Note | + + | Miguel Bee - 06/27/2014 3:05 PM PST | + + documented in this encounter Visit Diagnoses Not on filedocumented in this encounter"
--- OUTSIDE RECORDS SUMMARY | ~2020-04-01 | XMS | Encounter Summary ---
Demographics + + + | Address | [address] | | | [place] [address] | + + + | Home Phone | | + + + | Preferred Language | Unknown | + + + | Marital Status | Single | + + + | Restorationist Affiliation | ZEFERINO | + + + | Race | or | + + + | Ethnic Group | Not or | + + + Author + + + | Author | [facility] | + + + | Organization | [facility] | + + + | Address | Unknown | + + + | Phone | Unavailable | + + + Support + + + + + | Name | Relationship | Address | Phone | + + + + + | Yennifer Batista | ECON | [address] | | | | | [place] | | | | | [address] | | + + + + + Care Team Providers + +------+ + | Care Geoscience Technician Name | Role | Phone | + +------+ + | Ed Landis MD | PCP | | + +------+ + Reason for Referral PROC - Dept/Practice Procedure (Urgent) +--------+--------+ + + + + | Status | Reason | Specialty | Diagnoses / | Referred By | Referred To | | | | | Procedures | Contact | Contact | +--------+--------+ + + + + | Closed | | Gastroenterol | Diagnoses | Naz, | Gas Endo | | | | ogy | Benign | MD Noble | [address] | | | | | esophageal | [address] | [address] | | | | | stricture | Zeeshan | [place] [facility] | | | | | S/P | [address] | Health and | | | | | dilatation | [place], [place] | Healing, | | | | | of | [address] | [address] | | | | | esophageal | Phone: | [place], [place] | | | | | stricture | [phone] | [address] | | | | | Polyp of | Fax: | Phone: | | | | | colon, | [phone] | [phone] | | | | | unspecified | | Fax: | | | | | part of | | [phone] | | | | | colon, | | | | | | | unspecified | | | | | | | type | | | | | | | Procedures | | | | | | | CONSULT TO | | | | | | | GI PROCEDURE | | | | | | | UNIT: 24 HR | | | | | | | PH CONSULT | | | | | | | TO GI | | | | | | | PROCEDURE | | | | | | | UNIT: EGD W | | | | | | | COLONOSCOPY | | | | | | | GA UPPER GI | | | | | | | | | | | | | | ENDOSCOPY,BI | | | | | | | OPSY GA | | | | | | | COLONOSCOPY, | | | | | | | FLEX, | | | | | | | W/BIOPSY | | | +--------+--------+ + + + + Reason for Visit +--------+ + | Reason | Comments | +--------+ + | Preop | | +--------+ + Office Visit - E/M Services (Routine) +--------+--------+ + + + + | Status | Reason | Specialty | Diagnoses / | Referred By | Referred To | | | | | Procedures | Contact | Contact | +--------+--------+ + + + + | Closed | | Trauma Center | | [facility] | Harry Rosa | | | | | | Ed Nielson MD | Gen Surg Ppv | | | | | | [place] | [address] | | | | | | [place] | [address] | | | | | | Health | Physicians | | | | | | Center | [facility] | | | | | | [address] | Floor | | | | | | Confed[place] | [place], [place] | | | | | | Way | [address] | | | | | | [place] | Phone: | | | | | | [place] [address] | [phone] | | | | | | Phone: | Fax: | | | | | | [phone] | [phone] | | | | | | Fax: | | | | | | | [phone] | | +--------+--------+ + + + + Encounter Details +--------+---------+ + + + | Date | Type | Department | Care Team | Description | +--------+---------+ + + + | 01/08/ | Office | Trauma Emergency | Noble Childs, | Benign esophageal | | 2018 | Visit | General Surgery at | MD [address] | stricture (Primary | | | | [address] | Dx); S/P dilatation | | | | [address] | [place], [place] | of esophageal | | | | [facility], | [address] | stricture; Severe | | | | 2nd Floor | [phone] | protein-calorie | | | | [place], [place] | | malnutrition (Sen: | | | | [address] | | less than 60% of | | | | [phone] | | standard weight) | | | | | | (HCC); Adrenal mass | | | | | | (HCC); Polyp of | | | | | | colon, unspecified | | | | | | part of colon, | | | | | | unspecified type | +--------+---------+ + + + Social History [...] + + + | Blood Pressure | 128/89 | 01/08/2018 1:33 PM | | | | | PDT | | + + + + + | Pulse | 102 | 01/08/2018 1:33 PM | | | | | PDT | | + + + + + | Temperature | - | - | | + + + + + | Respiratory Rate | - | - | | + + + + + | Oxygen Saturation | 99% | 01/08/2018 1:33 PM | | | | | PDT | | + + + + + | Inhaled Oxygen | - | - | | | Concentration | | | | + + + + + | Weight | 47.6 kg (105 lb) | 01/08/2018 1:33 PM | | | | | PDT | | + + + + + | Height | - | - | | + + + + + | Body Mass Index | 18.02 | 07/22/2016 3:38 AM | | | | | PST | | + + + + + documented in this encounter Progress Notes Noble Childs MD - 01/08/2018 1:40 PM PDT01/08/2018 Franck Batista presents with a long history of protein calorie malnutrition. He was treate d for an adrenal tumor more than 1 year ago and since that time has lost clost to 100 pounds . A year ago he reached a minimum weight of 83 pounds and was diagnosed with SMA syndrome. He also underwent dilatation of an esophageal stricture and polypectomy. Since that time elizabeth curry has gained weight to 105 pounds. He complains of dysphagia and pain after eating as well as infrequent BMs (1-2/week). He states he vomits as frequently as every day or every other day. Pt denies: fever, chills, nausea. Pain controlled by: GI cocktail Physical exam: BP 128/89 | Pulse 102 | Wt 47.6 kg (105 lb) | SpO2 99% | BMI 18.02 kg/(m^2) General appearance: Very thin male in NAD alert and cooperative Abdomen: Flat, no masses, no tenderness Incision: Well-healed : Not evaluated Assessment: Patient with ongoing dysphagia, abdominal pain after eating and infrequent BM's . I believe his esophageal stricture has recurred and in light of his infrequent BMs Mora dave he would benefit from EGD and colonoscopy. I have consulted GI for these. 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 He has chosen to have the CT in [place] . Plan: Patient will follow up after GI workup and CT scan. I spent 30 minutes with Franck Garduno [place], 70 % of that time was spent on counseling documented in this encounter Plan of Treatment Not on filedocumented as of this encounter Visit Diagnoses + + | Diagnosis | + + | Benign esophageal stricture - Primary Stricture and stenosis of esophagus | + + | S/P dilatation of esophageal stricture Other postprocedural status | + + | Severe protein-calorie malnutrition (Sen: less than 60% of standard weight) (HCC) | | Other severe protein-calorie malnutrition | + + | Adrenal mass (HCC) Unspecified disorder of adrenal glands | + + | Polyp of colon, unspecified part of colon, unspecified type | + + documented in this encounter"
--- OUTSIDE RECORDS SUMMARY | ~2020-04-01 | XMS | Encounter Summary ---
Demographics + + + | Address | [address] | | | [place] [address] | + + + | Home Phone | | + + + | Preferred Language | Unknown | + + + | Marital Status | Single | + + + | Anglican Affiliation | ZEFERINO | + + + | Race | or | + + + | Ethnic Group | Not or | + + + Author + + + | Author | [facility] | + + + | Organization | [facility] | + + + | Address | Unknown | + + + | Phone | Unavailable | + + + Support + + + + + | Name | Relationship | Address | Phone | + + + + + | Yennifer Batista | ECON | [address] | | | | | [place] | | | | | [address] | | + + + + + Care Team Providers + +------+ + | Care Explosive Ordnance Disposal Manager Name | Role | Phone | + +------+ + | Sujatha Sullivan | PCP | | | DOWEL PIN MAN | | | + +------+ + Encounter Details +--------+ + + + + | Date | Type | Department | Care Team | Description | +--------+ + + + + | 06/09/ | Abstract | Cardiology | Unknown . | | | 2013 | | Preventive at [facility] | | | | | | [address] | | | | | | [place] [facility] | | | | | | and Healing, | | | | | | [address] | | | | | | [place], [place] | | | | | | [address] | | | | | | [phone] | | | +--------+ + + + [...]
--- OUTSIDE RECORDS SUMMARY | ~2020-04-01 | XMS | Encounter Summary ---
Demographics + + + | Address | [address] | | | [place] [address] | + + + | Home Phone | | + + + | Preferred Language | Unknown | + + + | Marital Status | Single | + + + | Taoist Affiliation | ZEFERINO | + + + | Race | or | + + + | Ethnic Group | Not or | + + + Author + + + | Author | [facility] | + + + | Organization | [facility] | + + + | Address | Unknown | + + + | Phone | Unavailable | + + + Support + + + + + | Name | Relationship | Address | Phone | + + + + + | Yennifer Batista | ECON | [address] | | | | | [place] | | | | | [address] | | + + + + + Care Team Providers + +------+ + | Care Owner Oral Surgeon Name | Role | Phone | + +------+ + | Ed Landis MD PCP | | + +------+ + Encounter Details +--------+ + + + + | Date | Type | Department | Care Team | Description | +--------+ + + + + | 06/02/ | Pharmacy | [facility] | | | | 2013 | Visit | & [facility] | | | | | | [address] | | | | | | Mailcode: [place] | | | | | | [facility] and | | | | | | Healing, [address] | | | | | | [place], [place] | | | | | | [address] | | | | | | [phone] | | | +--------+ + + + [...]
--- OUTSIDE RECORDS SUMMARY | ~2020-04-01 | XMS | Encounter Summary ---
Demographics + + + | Address | [address] | | | [place] [address] | + + + | Home Phone [...] Author + + + | Author | [facility] | + + + | Organization | [facility] [employer] [facility] | + + + | Address | Unknown | + + + | Phone | Unavailable | + + + Support + + + + + | Name | Relationship | Address | Phone | + + + + + | Yennifer Batista | ECON | [address] | | | | | [place] | | | | | [address] | | + + + + + Care Team Providers + +------+ + | Care Sheeter Operator Name | Role | Phone | [...] | | | | period | [place] [address] | [address] Phone: | | | | | | Phone: | [phone] | | | | | | [phone] | Fax: | | | | | | Fax: | [phone] | | | | | | [phone] | | +--------+--------+ + + + + Encounter Details +--------+---------+ + + + | Date | Type | Department | Care Team | Description | +--------+---------+ + + + | 09/01/ | Office | Urology at [facility] | Theresa Beyer, | Adrenal mass (HCC) | | 2014 | Visit | [address] | [address] | (Primary Dx) | | | | Mailcode: [id number] | [place] [address] | | | | | [facility] | [phone] | | | | | and [place], | | | | | | Building | | | | | | Floor [place], [place] | | | | | | [address] | | | | | | [phone] | | | +--------+---------+ + + + [...] from all bl ack inked margins. Submitted: Compugraph Operator The tumor is sampled for the Bio Marker study and the BioLibrary. Cassette Index: A1-3, sales representative womens health adrenal to mass A4-6, sales representative womens health intracapsular mass AMJ:tp My electronic signature indicates that I have personally reviewed al l diagnostic slides, the gross and/or microscopic portion of this report and formulated the final diagnosis. Rendering Diagnostician: Juanjo Covington M.D. Pathologist Electronically Signed 08/22/2014 4:58PM GLUCOSE, PLASMA (LAB) 08/18/2014 85 BUN, PLASMA (LAB) 08/18/2014 10 CREATININE PLASMA (LAB) 08/18/2014 0.80 EGFR - ALBANIAN 08/18/2014 >60 EGFR NON -ALBANIAN 08/18/2014 >60 SODIUM, PLASMA (LAB) 08/18/2014 140 [...] CREATININE PLASMA (LAB) 08/17/2014 0.89 EGFR - ALBANIAN 08/17/2014 >60 EGFR NON -ALBANIAN 08/17/2014 >60 SODIUM, PLASMA (LAB) 08/17/2014 139 [...] CREATININE PLASMA (LAB) 08/19/2014 0.72 EGFR - ALBANIAN 08/19/2014 >60 EGFR NON -ALBANIAN 08/19/2014 >60 SODIUM, PLASMA (LAB) 08/19/2014 136 [...] CREATININE PLASMA (LAB) 08/20/2014 0.63* EGFR - ALBANIAN 08/20/2014 >60 EGFR NON -ALBANIAN 08/20/2014 >60 SODIUM, PLASMA (LAB) 08/20/2014 134* [...] CREATININE PLASMA (LAB) 08/21/2014 0.57* EGFR - ALBANIAN 08/21/2014 >60 EGFR NON -ALBANIAN 08/21/2014 >60 SODIUM, PLASMA (LAB) 08/21/2014 133* [...] CREATININE PLASMA (LAB) 08/22/2014 0.66* EGFR - ALBANIAN 08/22/2014 >60 EGFR NON -ALBANIAN 08/22/2014 >60 SODIUM, PLASMA (LAB) 08/22/2014 139 [...] is no need for continued cancer surveillance. KATERIN THOMAS. THERESA BEYER MD UROLOGY ONCOLOGY [address] Mail Code: Ch10u [facility], [address] [facility] [address] documented in this en counter Plan of Treatment Not on filedocumented as of this encounter Visit Diagnoses + + | Diagnosis | + + | 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
--- OUTSIDE RECORDS SUMMARY | ~2020-04-01 | XMS | Encounter Summary ---
Demographics + + + | Address | [address] | | | [place] [address] | + + + | Home Phone | | + + + | Preferred Language | Unknown | + + + | Marital Status | Single | + + + | Anabaptism Affiliation | ZEFERINO | + + + | Race | or | + + + | Ethnic Group | Not or | + + + Author + + + | Author | [facility] | + + + | Organization | [facility] [employer] [facility] | + + + | Address | Unknown | + + + | Phone | Unavailable | + + + Support + + + + + | Name | Relationship | Address | Phone | + + + + + | Yennifer Batista | ECON | [address] | | | | | [place] | | | | | [address] | | + + + + + Care Team Providers + +------+ + | Care Slide Fastener Chain Assembler Name | Role | Phone | + [...] Closed | | Gastroenterol | Diagnoses | Jose F, | Gas Endo | | | | ogy | Esophageal | Frederic L, | [address] | | | | | stricture | MD,MP[facility] [address] | | | | | Procedures | N | Center for | | | | | CONSULT TO | [address] | Health and | | | | | GI PROCEDURE | Ave | Healing, | | | | | UNIT: EGD | [place], [place] | [address] | | | | | [place] UPPER GI | [address] | [place], [place] | | | | | ENDOSCOPY,BI | Phone: | [phone] | | | | | OPSY [place] UP | [phone] | Phone: | | | | | GI | Fax: | [phone] | | | | | ENDOSCOPY,BA | [phone] | Fax: | | | | | LL DIL,30MM | | [phone] | | | | | [place] UPPER GI | | | | | | | | | | | | | | ENDOSCOPY,LI | | | | | | | GAT VARIX | | | +--------+--------+ + + + + Encounter Details +--------+ + + + + | Date | Type | Department | Care Team | Description | +--------+ + + + + | 08/11/ | Residential Mortgage Manager | Digestive Health | Frederic Kohler | Esophageal stricture | | 2017 | | Center at [facility] [address] | MD Kies[address] | (Primary Dx) | | | | [address] | [address] | | | | | for Health and | [place] [address] | | | | | [facility] [address] | [phone] | | | | | [place], [place] | | | | | | [address] | | | | | | [phone] | | | +--------+ + + + [...]
--- OUTSIDE RECORDS SUMMARY | ~2020-04-01 | XMS | Encounter Summary ---
Demographics + + + | Address | [address] | | | [place] [address] | + + + | Home Phone [...] + + | Author | [facility] [employer] [facility] | + + + | Organization | [facility] [employer] [facility] | + + + | Address | Unknown | + + + | Phone | Unavailable | + + + Support + + + + + | Name | Relationship | Address | Phone | + + + + + | Yennifer Batista | ECON | [address] | | | | | [place] | | | | | [address] | | + + + + + Care Team Providers + +------+ + | Care Academic Dean Name | Role | Phone | + [...] | 2018 | | [address] | [facility] | | | | | [address] | Road [facility] [place] | | | | | Mailcode: L223A | [address] | | | | | Physician's [place] | | | | | | [address] [place], | | | | | | [place] [address] | | | | | | [phone] | | | +--------+ + + + [...]
--- OUTSIDE RECORDS SUMMARY | ~2020-04-01 | XMS | Encounter Summary ---
Demographics + + + | Address | [address] | | | [place] [address] | + + + | Home Phone [...] + + | Author | [facility] [employer] [facility] | + + + | Organization | [facility] [employer] [facility] | + + + | Address | Unknown | + + + | Phone | Unavailable | + + + Support + + + + + | Name | Relationship | Address | Phone | + + + + + | Yennifer Batista | ECON | [address] | | | | | [place] | | | | | [address] | | + + + + + Care Team Providers + +------+ + | Care Chocolate Finisher Operator Name | Role | Phone | + +------+ + | Ed Landis MD PCP | | + +------+ + Encounter Details +--------+ + + + + | Date | Type | Department | Care Team | Description | +--------+ + + + + | 02/17/ | Pharmacy | [facility] | | | | 2018 | Visit | & [facility]aling Pharmacy | | | | | | [address] | | | | | | Mailcode: [place] | | | | | | for Health and | | | | | | Healing, [address] | | | | | | [place], [place] | | | | | | [address] | | | | | | [phone] | | | +--------+ + + + [...]
--- OUTSIDE RECORDS SUMMARY | ~2020-04-01 | XMS | Encounter Summary ---
Demographics + + + | Address | [address] | | | [place] [address] | + + + | Home Phone [...] | Author | [facility] [employer] [facility] | + + + | Organization | [facility] [employer] [facility] | + + + | Address | Unknown | + + + | Phone | Unavailable | + + + Support + + + + + | Name | Relationship | Address | Phone | + + + + + | Yennifer Batista | ECON | [address] | | | | | [place] | | | | | [address] | | + + + + + Care Team Providers + +------+ + | Care Finishing Powder Press Operator Name | Role | Phone [...] Closed | | Gastroenterol | Diagnoses | [place], | Gas Endo | | | | ogy | Esophageal | MD Damaris | [address] | | | | | stenosis | [address] | [address] | | | | | Procedures | [address] | [place] | | | | | CONSULT TO | Rd | [address] | | | | | GI PROCEDURE | [place], [place] | floor | | | | | UNIT: | [address] | [place], [place] | | | | | COLONOSCOPY | Phone: | [address] | | | | | CONSULT TO | [phone] | Phone: | | | | | GI PROCEDURE | Fax: | [phone] | | | | | UNIT: EGD W | [phone] | Fax: | | | | | COLONOSCOPY | | [phone] | +--------+--------+ + + + + Encounter Details +--------+ + + + + | Date | Type | Department | Care Team | Description | +--------+ + + + + | 06/30/ | Telephone | Endoscopic | Damaris Woods MD | | | 2018 | | Procedural Unit at | [address] | | | | | Maged [address] | [address] [place], | | | | | [address] | [place] [address] | | | | | [place], | [phone] | | | | | 4th floor [place], | | | | | | [place] [address] | | | | | | [phone] | | | +--------+ + + + [...]
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
--- OUTSIDE RECORDS SUMMARY | ~2020-04-01 | XMS | Encounter Summary ---
Demographics + + + | Address | [address] | | | [place] [address] | + + + | Home Phone [...] + | Author | [facility] | + + + | Organization | [facility] [employer] [facility] | + + + | Address | Unknown | + + + | Phone | Unavailable | + + + Support + + + + + | Name | Relationship | Address | Phone | + + + + + | Yennifer Batista | ECON | [address] | | | | | [place] | | | | | [address] | | + + + + + Care Team Providers + +------+ + | Care Ore Crushing Dust Collector Name | Role | Phone | + [...] | | | [address] | [facility] [place] | | | | | [place], | [address] | | | | | [address]th floor [place], | [phone] | | | | | [place] [address] | | | | | | [phone] | Julian Obregon, | | | | | | DO [address] | | | | | | [address] | | | | | | [place], [place] | | | | | | [address] | | | | | | [phone] | | | | | | | [...] encounter OR Notes Anesthesia Postprocedure Evaluation - Nighat Ac MD - 07/01/2018 5:00 PM PSTForma tting of this note might be different from the original. Franck Garduno [facility] [id number] Allergies Allergen Reactions Naproxen Hives Past Surgical History Procedure Laterality Date Jaw surgery 1986 [facility] Cyst removal-leg Right 1992 Lower leg Cholecystectomy Temp: 36.4 C (97.5 F) Heart Rate: 70 Resp: 12 BP: (!) 142/91 SpO2: 100 % Evaluation Patient personally seen and evaluated for recovery from anesthesia care, ROS including Card s, Resp, Neuro, and GI w/o evidence of adverse effects, VS (BP, HR, RR, SpO2, and Temp) and hydration status are stable no PONV Pain controlled No Altered mental status Complications No adverse events nesthesia Preproc edure Evaluation - Julian Obregon, - 06/30/2018 4:02 PM PSTFormatting of this note m ight be different from the original. Franck Garduno [facility] [id number] Allergies Allergen Reactions Naproxen Hives NPO:NPO Status: npo since 229906/29/18 Last Vitals: Temp: 36.5 C (97.7 F) Heart Rate: 80 BP: 111/80 SpO2: 100 % Preg Status/LMP: Patient Active Problem List Diagnosis Adrenal mass (HCC) Bowel obstruction (HCC) Benign esophageal stricture S/P dilatation of esophageal stricture Severe protein-calorie malnutrition (Sen: less than 60% of standard weight) (HCC) Superior mesenteric artery syndrome (HCC) Polyp of colon Gastroesophageal reflux disease with esophagitis Past Surgical History Procedure Laterality Date Jaw surgery 1986 [facility] Cyst removal-leg Right 1992 Lower leg Cholecystectomy Current Medication List Name Sig Last Dose BUPROPION HCL SR 150 MG TABLET,12 HR SUSTAINED-RELEASE Take 150 mg by mouth two times daily . 06/29/2018 LORATADINE 10 MG TABLET Take 10 mg by mouth once daily. 06/29/2018 OMEPRAZOLE MAGNESIUM 20 MG TABLET,DELAYED RELEASE Take 1 tablet by mouth once daily. Indica tions: Erosive Esophagitis 06/29/2018 Lab Results Component Value Date RATE 127 08/17/2014 ATRIALRATE 128 08/17/2014 MD 152 08/17/2014 QRS 70 08/17/2014 QT 272 08/17/2014 QTC 440 03/21/2014 PAXIS 45 08/17/2014 RAXIS 10 08/17/2014 TAXIS 23 08/17/2014 EKGDX 03/21/2014 SINUS RHYTHM EARLY PRECORDIAL R/S TRANSITION "I have personally interpreted this report, either alone or with a trainee." Confirmed by Julian Spears ([id number]) on 03/21/2014 7:39:19 PM Preoperative Adult Anesthesia Plan Last edited 06/30/18 1602 by Julian Obregon DO ROS: HPI: 57yo male who presents for planned EGD/Colonoscopy with GI. Appropriately NPO. Tolerated anesthesia well in the past. Pulmonary: no shortness of breath no cough Pt. Has no asthma no COPD Cardiovascular: no chest pain no CHF no CAD Sx no valvular problems/murmurs -congenital heart disease arrhythmia Other no Cardiac assist devices (Hx of Sinus Tachycardia, off and on BBs) no pacemaker/ICD GI/Hepatic: GERD Renal: no renal failure Urology/Hyster Driver: no Urologic Conditions Endo: no Diabetes: Neuro/Psych: no Psych Disorder Heme/Onc: Pt. has: no active bleeding Infectious Disease: no MRSA Skin: no open wounds AutoImmune Disorders: No autoimmune disorders Physical Exam General: Appearance: Healthy and Age appropriate HEENT: Normocephalic/Atraumatic Airway: Dentition: dentures-upper dentures-lower Mallampati: 1 Mouth Opening: > 3 cm TM Distance:> 6 cm C-Spine ROM: Normal Neck Anatomy: Normal Jaw Protrusion: Normal (lower incisors go above upper incisors) Pulmonary: Respiratory: pulmonary exam normal Breath Sounds: breath sounds normal Cardiovascular: Rhythm: Regular Rate: Normal 1602 Revision History Date/Time User Provider Type Action > 06/30/18 1602 Julian Obregon DO Resident Sign 06/30/18 1600 Julian Obregon DO Resident Share Anesthesia Plan Comments ASA ASA 2 NPO Status NPO Status: NPO by protocol Monitors/Lines to be used Standard Anesthetic Consideration Induction intravenous induction Anesthetic Technique Monitored Anesthesia Care; Comments: MAC w GA Backup Obstetric Anesthesia Post-Op Pain Plan IV analgesics and Orals; Blood Products Informed Consent PARQ discussed with: patient, Procedures, Alternatives, Risks, and Questions discussed and Risk/benefit of anesthesia plan and blood product discussed Dental Risk discussed with patient ; ; Date Consent Series Given: 06/30/2018 4:02 PM Code status in OR Patients Code Status in OR: FULL 06/30 4:02 PM documented in this encounter Miscellaneous Notes Addendum Note - Nighat Ac MD - 07/01/2018 6:21 PM PSTFormatting of this note dariana ht be different from the original. Addendum created 07/01/181820 by Nighat Ac MD Sign clinical note ddendum Note - B Nighat reed MD - 07/01/2018 6:16 PM PSTFormatting of this note might be different fr om the original. Addendum created 07/01/181815 by Nighat Ac MD Anesthesia Attestations filed MC/ANE PreOp Not e - Julian Obregon DO - 06/30/2018 3:56 PM PSTROS: HPI: 57yo male who presents for planned EGD/Colonoscopy with GI. Appropriately NPO. Tolerated an esthesia well in the past. Pulmonary: no shortness of breath no cough Pt. Has no asthma no COPD Cardiovascular: no chest pain no CHF no CAD Sx no valvular problems/murmurs -congenital heart disease arrhythmia Other no Cardiac assist devices (Hx of Sinus Tachycardia, off and on BBs) no pa cemaker/ICD GI/Hepatic: GERD Renal: no renal failure Urology/Hyster Driver: no Urologic Conditions Endo: no Diabetes: Neuro/Psych: no Psych Disorder Heme/Onc: Pt. has: no active bleeding Infectious Disease: no MRSA Skin: no open wounds AutoImmune Disorders: No autoimmune disorders Physical Exam General: Appearance: Healthy and Age appropriate HEENT: Normocephalic/Atraumatic Airway: Dentition: dentures-upper dentures-lower Mallampati: 1 Mouth Opening: > 3 cm TM Distance:> 6 cm C-Spine ROM: Normal Neck Anatomy: Normal Jaw Protrusion: Normal (lower incisors go above upper incisors) Pulmonary: Respiratory: pulmonary exam normal Breath Sounds: breath sounds normal Cardiovascular: Rhythm: Regular Rate: Normal MC/ANE PreOp Note - Abby Nguyễn RN - 06/18/2018 2:36 PM PSTROS: HPI: Prior Anesthetic Problems: No Pulmonary: no shortness of breath no cough no stridor no wheezing no Recent Respiratory Infectio n Pt. Has no asthma no COPD No dx of sleep apnea Risk factors for sleep apnea: Gender M lokesh and Age>50 Pt at low risk of RACHEAL Cardiovascular: Functional Capacity: Moderate - cyanosis, palpitations and syncope no chest pain no CHF no hypertension no CAD Sx no valvular problems/murmurs no arrhythmia no Cardiac assist devices no pacemaker/ICD GI/Hepatic: no GI Bleed OTHER GI abdominal painGERD no liver disease no hepatitis Renal: no renal failure no electrolyte abnormalities no dialysis Endo: no Diabetes: no Endocrine Other no Hx Corticosteroid Use Neuro/Psych: No Head Conditions No Spine Conditions No Neuromuscular Conditions Psych Disorder depress ion pain Current pain score: 5 Chronic pain related to scheduled surgery Chronic Pain Musculoskeletal: no arthritis No Muscular Disorders Heme/Onc: Pt. has: no active bleeding no bleeding disorder No clotting disorders No hemoglobin d isorders no malignancy Infectious Disease: no MRSA no VRE Skin: no open wounds no skin conditions AutoImmune Disorders: No autoimmune disorders 57 y.o. M scheduled for: COLONOSCOPY; EGD Location: [facility] at [address] Provider: Damaris Woods MD on 06/30/2018. Past medical hx is significant for esophagitis, GERD, abdominal pain, esophageal stricture and seasonal allergies. Weight__105__lbs. Height__5__ Ft.__4__Inches BMI __18.02__ No current H&P located under EPIC encounter tab or in Care Everywhere. H&P to be completed on DOS. Patient interview complete and pertinent updates documented under patient history. Patient received pre-op instructions per AVS and verbalized good understanding. Phone appoi ntment completed as scheduled. Transportation: TBD, arranging through [employer]- patient's social service worker documented in this enco unter Plan of Treatment Not on filedocumented as [...]
--- OUTSIDE RECORDS SUMMARY | ~2020-04-01 | XMS | Encounter Summary ---
Demographics + + + | Address | [address] | | | [place] [address] | + + + | Home Phone [...] | Author | [facility] | + + + | Organization | [facility] [employer] [facility] | + + + | Address | Unknown | + + + | Phone | Unavailable | + + + Support + + + + + | Name | Relationship | Address | Phone | + + + + + | Yennifer Batista | ECON | [address] | | | | | [place] | | | | | [address] | | + + + + + Care Team Providers + +------+ + | Care Burn Out Scarfing Operator Name | Role | Phone | + +------+ + | Ed Landis MD PCP | | + +------+ + Encounter Details +--------+ + + + + | Date | Type | Department | Care Team | Description | +--------+ + + + + | 01/22/ | Inside | [facility] | Daksha Childs, | | | 2018 | Referral | [facility] [address] | [address] [place] [address] | | | | Order | [facility] | [address] | | | | | [facility] He[facility], | [place], [place] | | | | | [facility] [address] | [address] | | | | | [place], [place] | [phone] | | | | | [address] | | | | | | [phone] | | | +--------+ + + + [...] + | MRN: | [id number] | | [id number] Date: 02/17/2018Patient Name: Franck Mares #: | ENDOSCOPY | | [id number] of : 1960CSN: [id number] Type: | | | AmbulatoryRoom: [facility] 1Procedure: Upper GI | | | endoscopyIndications: DysphagiaProviders: | | | REMIGIO DRAKE MD (Doctor), OLIVER GOMEZ RN (Nurse), | | | TYE GLYNN (Vmware Architect), SADNRA MORALES, Vmware Architect | | | (Vmware Architect)Referring MD: | | | DAKSHA CHILDS MDRequesting [...] | | | The [employer] [id number] Gastroscope #[id number] was | | | introduced through the [...] + + | Performing | Address | City/State/[facility]ode | Phone Number | | [...]
--- OUTSIDE RECORDS SUMMARY | ~2020-04-01 | XMS | Encounter Summary ---
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 [address] | Theresa Beyer, | | | 2015 - | Encounter | [address] | [address] [place] [address] | | | | | 12/[facility] | [place] [address] | | | 08/22/ | | [facility], | [phone] | | | 2014 | | [place] [address] | | | | | | [phone] | | | +--------+ + + + [...] + documented in this encounter Discharge Summaries Inocencia Patterson MD - 08/21/2014 6:29 AM PST INPATIENT DISCHARGE SUMMARY Author: INOCENCIA PATTERSON MD Attending Physician: Theresa Beyer MD [...] can cause constipation, so you may take kgpv-boh-[id number] stool softeners (Senok ot-S, Miralax, Colace) following [...] Outstanding labs/studies: Pathology results pending Discharging Physician: INOCENCIA PATTERSON MD Attending Physician: Theresa Beyer MD [...] documented as of this encounter Progress Notes Inocencia Patterson MD - 08/21/2014 6:33 AM PST Urology Progress Note Hospital Day: 4 Author: INOCENCIA PATTERSON MD Attending Physician: Theresa Beyer MD Patient: COREEN SEGOVIA [id number] 24H events/Subjective: МАРИНА overnight. Emesis x1 yesterday [...] bruising around incision but no erythema - Kinney catheter out Ext - Warm, well perfused; [...] for this patient is Theresa Beyer MD. INOCENCIA PATTERSON MD [facility] [id number] [place] [address] Zay Sherman MD - 08/20/2014 4:54 AM PST Urology Progress Note Hospital Day: 3 Author: ZAY HERNANDEZ MD Attending Physician: Theresa Beyer MD Patient: COREEN SEGOVIA [id number] 24H events/Subjective: No acute events overnight. Pain [...] bruising around incision but no erythema - Kinney catheter out Ext - Warm, well perfused; [...] Resident - R5 Department of Urology Pager #[phone] ay Hernandez MD - 08/19/2014 7:49 AM PST Urology Progress Note Hospital Day: 2 Author: INOCENCIA PATTERSON MD Attending Physician: Theresa Beyer MD Patient: COREEN SEGOVIA [id number] 24H events/Subjective: МАРИНА overnight. Pain is adequately [...] bruising around incision but no erythema - Kinney catheter out Ext - Warm, well perfused; [...] Caitlin Falk NP Adult Pain Service Pager [phone] Team Pager [phone] Caitlin Jiménez NP - 08/18/2014 8:02 AM [...] Prior to hospitalization: Opioids: Hydrocodone as hydrocodone/acetaminophen 10325: 4/day - but took about 6 a [...] are an improvement from his daily pain. Kinney status: Epidural: at thoracic level; If Kinney is in place, it may be removed [...] and summary of old medical records (source: [employer]), as summarized in the body of the note. CAITLIN FALK NP BILLING INFORMATION [facility] DEPARTMENT: [phone] Place of Service:- Inpatient Date of Service: 08/18/2014 CSN: [id number] Suggested Modifier: None Suggested CPT: 40897 - Daily mgmt epidural/subarachnoid drug administration Prolonged service: n/a Counseling and Coordination: n/a Inocencia Chappell MD - 08/18/2014 6:46 AM PST Urology Progress Note Hospital Day: 1 Author: INOCENCIA PATTERSON MD Attending Physician: Theresa Beyer MD Patient: COREEN SEGOVIA [id number] 24H events/Subjective: Tachycardic overnight asymptomatic otherwise >> [...] ml Net 2686 ml IV 3464 ml Kinney catheter 1685 ml Medication: aluminum-magnesium hydroxide-simethicone (MAALOX; [...] and intact, dressing clan no strikethrough - Kinney catheter in place draining clear urine Ext - Warm, well perfused; no cyanosis, clubbing or edema Neuro - Grossly intact; no focal abnormalities Assessment and Plan: Coreen Segovia is a 53 y.o. male with left adrenal mass now postoperative day 1 status pos t left open adrenalectomy. Cr 0.8 Hct 33.1 Plan Remove Kinney catheter Limited CLD Encourage ambulation Encourage Spirometer Continue epidural, appreciate pain service input Restart home meds Replete labs prn Dispo: Acute care The attending of record for this patient is Theresa Beyer MD. INOCENCIA PATTERSON MD [facility] [id number] [place] [address] Zay Sherman MD - 08/17/2014 10:44 AM PST [facility] PRE-OPERATIVE HISTORY & PHYSICAL EXAM CHIEF [...] History Procedure Laterality Date Jaw surgery 1986 [facility] Cyst removal-leg Right 1993 Lower leg CURRENT [...] Resident - R5 Department of Urology Pager #[phone] documented in this encounter H&P Notes Other, Faculty - 08/28/2014 7:13 AM PSTElectronically signed by Faculty Other at 5 7:13 AM PSTdocumented in this encounter Procedure Notes Other, Faculty - 08/30/2014 9:53 AM PSTAssociated Order(s): CARDIOLOGYElectronically lucio d by Faculty Other at 08/30/2014 9:53 AM PSTOther, Faculty - 08/18/2014 2:24 PM PSTAssocia beatriz Order(s): 12 LEAD ECG w Zay smith MD - 08/17/2014 1:03 PM PSTAssociated Order(s): PROCEDURE NOTEOPERATIVE NO TE Procedure Date: 08/17/14 Author: ZAY HERNANDEZ MD Attending Physician: Theresa Beyer MD Assistants: ZAY HERNANDEZ MD; Inocencia Patterson MD Preoperative Diagnosis: Left adrenal mass Postoperative Diagnosis: Same Procedure Performed: Open left adrenalectomy Estimated Blood Loss: 25 mL Fluids: 1700 mL Urine output: 50 mL Specimens: left adrenal gland Complications: none Drains: 16 Fr kinney Disposition: PACU Findings: 1) left adrenal gland including large left adrenal mass removed without difficulty 2) No adenopathy. Indication: Coreen Segovia is a 53 y.o. 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 Due to progressiv e symptoms, he was indicated for surgery. Procedure details: Prior to the beginning of the procedure the team paused to verify the patient's identity, a s well as the procedure to be performed, the correct side/site, appropriate antibiotic proph ylaxis and to address any concerns. All equipment required was ready and available. Sequent ial compression devices were placed on the bilateral lower extremities and turned on prior t o the induction of general endotracheal anesthesia. The patient was positioned appropriately in supine position. The surgical site was then pr epared and draped in the usual sterile surgical fashion. A left anterior subcostal incision was made, extending across the midline to the right in a modified chevron configuration. This was carried down to the fascia which was opened with e lectrocautery. The rectus muscles were divided and the posterior rectus sheath and peritoneu m were carefully entered, thus gaining access to the abdomen. The falciform ligament was div ided with the Ligasure device. We then opened the rest of the incision with electrocautery, taking care to avoid injuring the intraabdominal contents. We palpated the liver and it felt normal. We then reflected the descending colon along the white line of Toldt. We reflected Gerotas fascia laterally and the bowel medially. The splen ic flexture was mobilized off the spleen carefully. The pancreas was avoided meticulously. T he mass involving the left adrenal gland was easily palpated. We began dissecting around the adrenal mass. This was done bluntly and with ligasure. Inferiorly we came to a small remnan t of normal adrenal gland and subsequently the adrenal vein heading inferiorly. This was div ided between clips. We continued the dissection around the lateral and superior aspects, bam ing care to dissect away the pancreas and spleen and small bowel without damaging any of the se structures. The mass was thus removed without any difficulty or significant bleeding. Thi s was passed off the field. We then replaced the bowel in its anatomic position, and did an instrument, lap, and needle count which was correct. We closed the posterior rectus sheath with a number 1 looped Maxon suture in a running fashion. The midline fascia was closed with number 1 Maxon suture as we ll. Great care was taken to avoid incorporating intraabdominal contents. We then closed the anterior rectus sheath with number 1 maxon as well. We then closed the skin with 4-0 biosyn. The patient was then awoken from anesthesia and taken to recovery room in good condition, h aving tolerated the procedure without difficulty or complication. I certify that Theresa Beyer MD was scrubbed for the entire procedure. Zay Hernandez MD Resident - Department of Urology Pager #[phone] documented in this en counter Miscellaneous Notes Scan - Other, Faculty - 10/12/2014 8:11 PM PDTElectronically signed by Faculty Other at 8:11 PM PDTScan - Other, Faculty - 08/30/2014 9:47 PM PST can - Rohit, Faculty - 08/28/2014 7:13 AM PSTElec tronically signed by Faculty Other at 08/28/2014 7:13 AM PSTScan - Rohit, Faculty - 015 12:04 AM PST can - Elsy bourgeois Faculty - 08/25/2014 6:46 PM PST 6: 46 PM PSTEvaluation - Caitlin Rosen RN - 08/22/2014 9:14 AM PSTNursing Discharge Note Discharge Date: 08/22/2014 Additional Discharge Information: None Discharge Nurse: Caitlin Rosen andoff - Elle White RN - 08/22/2014 2:26 AM PSTNursing Handoff Report Primary focus of stay: OPEN LEFT ADRENALECTOMY 08/17 Pertinent physical findings: Abdominal dressing with small amount of shadowing on left, jose ramon an on right, Epidural removed Thursday and taking 20mg of oxy. Kinney removed and voiding clear yellow. Tachycardic controlled , (Pt states the tachycardia is baseline for him. home Metop rolol for HR), otherwise VSS, Using IS, 2 PIVs. ambulated in the halls 3 times yesterday. Small BM after supp yesterday. orders to follow up on: Last pain assessment/reassessment: Oxycodone 20 mg Q3hrs prn. Takes oxycodone at home. Psych/social issues: pleasant, a little anxious at times. Last patient visit (i.e. Falls/Activity/Comfort/Environment/Toileting/Skin): ambulates sebastián lway, back to bed. Patient is at risk for: Infection, Falls, Discomfort and Skin breakdown Stability: Moderately Stable Targeted interventions based on risk & stability (care plan): Problem: General Plan of Care (Adult) Goals: 1. Pt will report pain at or below acceptable level for pt. 2. Pt will be free from falls 3. Pt will have no s/s of infection Interventions: 1. Pain level assessment q 4 hours and as needed, assisting with repositioning and administ ering prn pain medication as needed. Revaluate effectiveness of interventions within 30 shannan miri. 2. Non skid socks when OOB, call light in reach and encourage use, lighting appropriate to task, bed alarm if necessary 3. Assess for increased body temp, warmth, purulent drainage, swelling, erythema with vital s and prn. Encourage pt to call for any changes. Response to interventions (evaluation): Walking, using call light appropriately. VSS Recommendations: Monitor pain level Pending interventions: Orders: Bowel meds Procedures: Teaching: Discharge Plan: DC today 2/3 andoff - Rich Moe RN - 08/21/2014 9:47 PM PSTNursing Handoff Report Primary focus of stay: OPEN LEFT ADRENALECTOMY 08/17 Pertinent physical findings: Abdominal dressing with small amount of shadowing on left, jose ramon an on right, Epidural removed Thursday and taking 25mg of oxy. Kinney removed and voiding clear yellow. Tachycardic controlled , (Pt states the tachycardia is baseline for him... home Met oprolol for HR), otherwise VSS, Using IS, 2 PIVs. ambulated in the halls 3 times yesterday. Small BM after supp yesterday. orders to follow up on: Last pain assessment/reassessment: Oxycodone 20 mg Q3hrs, last given 2200. Takes oxycodone at home. Psych/social issues: pleasant, a little anxious at times. Last patient visit (i.e. Falls/Activity/Comfort/Environment/Toileting/Skin): 2200, ambulate s hallway, back to bed. Patient is at risk for: Infection, Falls, Discomfort and Skin breakdown Stability: Moderately Stable Targeted interventions based on risk & stability (care plan): Problem: General Plan of Care (Adult) Goals: 1. Pt will report pain at or below acceptable level for pt. 2. Pt will be free from falls 3. Pt will have no s/s of infection Interventions: 1. Pain level assessment q 4 hours and as needed, assisting with repositioning and administ ering prn pain medication as needed. Revaluate effectiveness of interventions within 30 shannan miri. 2. Non skid socks when OOB, call light in reach and encourage use, lighting appropriate to task, bed alarm if necessary 3. Assess for increased body temp, warmth, purulent drainage, swelling, erythema with vital s and prn. Encourage pt to call for any changes. Response to interventions (evaluation): Walking, using call light appropriately. VSS Recommendations: Monitor pain level Pending interventions: Orders: Bowel meds Procedures: Teaching: Discharge Plan: DC today andoff - AvitiaKari RN - 08/21/2014 7:15 PM PSTNursing Handoff Report Primary focus of stay: OPEN LEFT ADRENALECTOMY 08/17 Pertinent physical findings: Abdominal dressing with small amount of shadowing on left, jose ramon an on right, Epidural removed Thursday and taking 25mg of oxy. Kinney removed and voiding clear yellow. Tachycardic controlled , (Pt states the tachycardia is baseline for him... home Met oprolol for HR), otherwise VSS, Using IS, 2 PIVs. ambulated in the halls 3 times yesterday. Small BM after supp yesterday orders to follow up on: Last pain assessment/reassessment: Oxycodone 20 mg Q3hrs, last given 1900. Takes oxycodone at home. Psych/social issues: pleasant, a little anxious at times. Last patient visit (i.e. Falls/Activity/Comfort/Environment/Toileting/Skin): End of shift, ambulating hallway. Given pain medication per request. Denies any further needs. Patient is at risk for: Infection, Falls, Discomfort and Skin breakdown Stability: Moderately Stable Targeted interventions based on risk & stability (care plan): Problems: 1.) Potential for pain 2.) Potential for decreased bowel function 3.) Potential for decreased pulmonary function 4.) Potential for decreased activity/ADLs 5.) Potential for skin breakdown 6.) Potential for fall Goals: 1.) Patient will rate pain <3/10 2.) Patient will have normal bowel movements 3.) Patient demonstrates proper technique of using IS 4.) Patient will increase activity by ambulating triplett TID 5.) Patient will maintain skin integrity 6.) Patient will be without falls Interventions: 1.) Assess pain every 3 hours and PRN offer and administer medication as needed 2.) Provide patient with bowel care medications and encourage PO fluids and mobility to pre vent constipation 3.) Reinforce use of IS/CDB and importance of pulmonary activities 4.) Assist patient up to ambulate 5.) Encourage patient to mobilize as much as possible, including moving in bed, turn Q 2hrs ; prevent patient from lying on tubes. 6.) Offer and provide assistance to bathroom Q2-3hours and as needed. Bed in low position w ith brakes locked, side rails x2, room near station, call light in reach, clutter free envir onment with needed personal items in reach. Response to interventions (evaluation): Walking, using call light appropriately. VSS Recommendations: Monitor pain level Pending interventions: Orders: Bowel meds Procedures: Teaching: Discharge Plan: DC tomorrow andoff - Nicolas López RN - 08/21/2014 1:49 AM PSTNursing Handoff Report Primary focus of stay: OPEN LEFT ADRENALECTOMY 08/17 Pertinent physical findings: Abdominal dressing with small amount of shadowing on left, jose ramon an on right, Epidural removed Thursday and taking 25mg of oxy. Kinney removed and voiding clear yellow. Tachycardic controlled , (Pt states the tachycardia is baseline for him... home Met oprolol for HR), otherwise VSS, Using IS, 2 PIVs. ambulated in the halls 3 times yesterday. Small BM after supp yesterday orders to follow up on: Last pain assessment/reassessment: Very painful. Oxycodone 20-25 mg Q3hrs, last given 0600. Takes oxycodone at home. Psych/social issues: pleasant, a little anxious at times. Last patient visit (i.e. Falls/Activity/Comfort/Environment/Toileting/Skin): In bed, sleepi ng, Call light in reach. Patient is at risk for: Infection, Falls, Discomfort and Skin breakdown Stability: Moderately Stable Targeted interventions based on risk & stability (care plan): Problems: 1.) Potential for pain 2.) Potential for decreased bowel function 3.) Potential for decreased pulmonary function 4.) Potential for decreased activity/ADLs 5.) Potential for skin breakdown 6.) Potential for fall Goals: 1.) Patient will rate pain <3/10 2.) Patient will have normal bowel movements 3.) Patient demonstrates proper technique of using IS 4.) Patient will increase activity by ambulating triplett TID 5.) Patient will maintain skin integrity 6.) Patient will be without falls Interventions: 1.) Assess pain every 3 hours and PRN offer and administer medication as needed 2.) Provide patient with bowel care medications and encourage PO fluids and mobility to pre vent constipation 3.) Reinforce use of IS/CDB and importance of pulmonary activities 4.) Assist patient up to ambulate 5.) Encourage patient to mobilize as much as possible, including moving in bed, turn Q 2hrs ; prevent patient from lying on tubes. 6.) Offer and provide assistance to bathroom Q2-3hours and as needed. Bed in low position w ith brakes locked, side rails x2, room near station, call light in reach, clutter free envir onment with needed personal items in reach. Response to interventions (evaluation): Walking, using call light appropriately. VSS Recommendations: Monitor pain level Pending interventions: Orders: Bowel meds Procedures: Teaching: Discharge Plan: DC tomorrow andoff - Ole, Ladonna dowell RN - 08/20/2014 5:56 PM PSTNursing Handoff Report Primary focus of stay: OPEN LEFT ADRENALECTOMY 08/17 Pertinent physical findings: Abdominal dressing with small amount of shadowing on left, jose ramon an on right, Epidural removed Thursday and taking 25mg of oxy. Kinney removed and voiding clear yellow. 08/17 Very tachycardic, (Pt states the tachycardia is baseline for him... home Metop rolol for HR), otherwise VSS, Using IS. , 2 PIVs. ambulated in the halls 3 times yesterday. No BM - given a suppository this afternoon orders to follow up on: Last pain assessment/reassessment: Very painful. Oxycodone 25mg Q3hrs. Takes oxycodone at h ome. Psych/social issues: pleasant, a little anxious at times. Last patient visit (i.e. Falls/Activity/Comfort/Environment/Toileting/Skin): In bed, sleepi ng, Call light in reach. Patient is at risk for: Infection, Falls, Discomfort and Skin breakdown Stability: Moderately Stable Targeted interventions based on risk & stability (care plan): Problems: 1.) Potential for pain 2.) Potential for decreased bowel function 3.) Potential for decreased pulmonary function 4.) Potential for decreased activity/ADLs 5.) Potential for skin breakdown 6.) Potential for fall Goals: 1.) Patient will rate pain <3/10 2.) Patient will have normal bowel movements 3.) Patient demonstrates proper technique of using IS 4.) Patient will increase activity by ambulating triplett TID 5.) Patient will maintain skin integrity 6.) Patient will be without falls Interventions: 1.) Assess pain every 3 hours and PRN offer and administer medication as needed 2.) Provide patient with bowel care medications and encourage PO fluids and mobility to pre vent constipation 3.) Reinforce use of IS/CDB and importance of pulmonary activities 4.) Assist patient up to ambulate 5.) Encourage patient to mobilize as much as possible, including moving in bed, turn Q 2hrs ; prevent patient from lying on tubes. 6.) Offer and provide assistance to bathroom Q2-3hours and as needed. Bed in low position w ith brakes locked, side rails x2, room near station, call light in reach, clutter free envir onment with needed personal items in reach. Response to interventions (evaluation): Walking, using call light appropriately. VSS Recommendations: Monitor pain level Pending interventions: Orders: Bowel meds Procedures: Teaching: Discharge Plan TBA andoff - AvitiaSandy davies RN - 08/20/2014 3:32 PM PSTNursing Handoff Report Primary focus of stay: OPEN LEFT ADRENALECTOMY 08/17 Pertinent physical findings: Abdominal dressing with small amount of shadowing on left, jose ramon an on right, Epidural removed Thursday and taking 25mg of oxy. Kinney removed and voiding clear yellow. 08/17 Very tachycardic, (Pt states the tachycardia is baseline for him... home Metop rolol for HR), otherwise VSS, Using IS. IVF at 100ml/hr, 2 PIVs. ambulated in the halls 3 times yesterday. orders to follow up on: Last pain assessment/reassessment: Very painful. Oxycodone 20mg Q3hrs. Requesting higher do se of 25mg. Takes oxycodone at home. Psych/social issues: pleasant, a little anxious at times. Last patient visit (i.e. Falls/Activity/Comfort/Environment/Toileting/Skin): In bed, restin g, Call light in reach. Will medicate for pain before 0700 Patient is at risk for: Infection, Falls, Discomfort and Skin breakdown Stability: Moderately Stable Targeted interventions based on risk & stability (care plan): Problems: 1.) Potential for pain 2.) Potential for decreased bowel function 3.) Potential for decreased pulmonary function 4.) Potential for decreased activity/ADLs 5.) Potential for skin breakdown 6.) Potential for fall Goals: 1.) Patient will rate pain <3/10 2.) Patient will have normal bowel movements 3.) Patient demonstrates proper technique of using IS 4.) Patient will increase activity by ambulating triplett TID 5.) Patient will maintain skin integrity 6.) Patient will be without falls Interventions: 1.) Assess pain every 3 hours and PRN offer and administer medication as needed 2.) Provide patient with bowel care medications and encourage PO fluids and mobility to pre vent constipation 3.) Reinforce use of IS/CDB and importance of pulmonary activities 4.) Assist patient up to ambulate 5.) Encourage patient to mobilize as much as possible, including moving in bed, turn Q 2hrs ; prevent patient from lying on tubes. 6.) Offer and provide assistance to bathroom Q2-3hours and as needed. Bed in low position w ith brakes locked, side rails x2, room near station, call light in reach, clutter free envir onment with needed personal items in reach. Response to interventions (evaluation): Walking, using call light appropriately. VSS Recommendations: Monitor pain level Pending interventions: Orders: Bowel meds Procedures: Teaching: Discharge Plan TBA andoff - Philip Gottlieb RN - 08/19/2014 8:15 PM PSTNursing Handoff Report Primary focus of stay: OPEN LEFT ADRENALECTOMY 08/17 Pertinent physical findings: Abdominal dressing with small amount of shadowing on left, jose ramon an on right, Epidural removed Thursday and taking 25mg of oxy. Kinney removed and voiding clear yellow. 08/17 Very tachycardic, (Pt states the tachycardia is baseline for him... home Metop rolol for HR), otherwise VSS, Using IS. IVF at 100ml/hr, 2 PIVs. ambulated in the halls 3 times yesterday. orders to follow up on: Last pain assessment/reassessment: Very painful. Oxycodone 25mg Q3hrs. Takes oxycodone at h ome. Psych/social issues: pleasant, a little anxious at times. Last patient visit (i.e. Falls/Activity/Comfort/Environment/Toileting/Skin): In bed, restin g, Call light in reach. Will medicate for pain before 0700 Patient is at risk for: Infection, Falls, Discomfort and Skin breakdown Stability: Moderately Stable Targeted interventions based on risk & stability (care plan): Problems: 1.) Potential for pain 2.) Potential for decreased bowel function 3.) Potential for decreased pulmonary function 4.) Potential for decreased activity/ADLs 5.) Potential for skin breakdown 6.) Potential for fall Goals: 1.) Patient will rate pain <3/10 2.) Patient will have normal bowel movements 3.) Patient demonstrates proper technique of using IS 4.) Patient will increase activity by ambulating triplett TID 5.) Patient will maintain skin integrity 6.) Patient will be without falls Interventions: 1.) Assess pain every 3 hours and PRN offer and administer medication as needed 2.) Provide patient with bowel care medications and encourage PO fluids and mobility to pre vent constipation 3.) Reinforce use of IS/CDB and importance of pulmonary activities 4.) Assist patient up to ambulate 5.) Encourage patient to mobilize as much as possible, including moving in bed, turn Q 2hrs ; prevent patient from lying on tubes. 6.) Offer and provide assistance to bathroom Q2-3hours and as needed. Bed in low position w ith brakes locked, side rails x2, room near station, call light in reach, clutter free envir onment with needed personal items in reach. Response to interventions (evaluation): Walking, using call light appropriately. VSS Recommendations: Monitor pain level Pending interventions: Orders: Procedures: Teaching: Discharge Plan TBA Marisa - Kari Avitia RN - 08/19/2014 6:47 PM PSTNursing Handoff Report Primary focus of stay: OPEN LEFT ADRENALECTOMY 08/17 Pertinent physical findings: Abdominal dressing with small amount of shadowing on left, jose ramon an on right, Epidural removed Thursday and taking 25mg of oxy. Kinney removed and voiding clear yellow. 08/17 Very tachycardic, (Pt states the tachycardia is baseline for him... home Metop rolol for HR), otherwise VSS, Using IS. IVF at 100ml/hr, 2 PIVs. ambulated in the halls 3 times yesterday. orders to follow up on: Last pain assessment/reassessment: Very painful. Oxycodone 25mg Q3hrs. Takes oxycodone at h ome. Lidocaine patch can be applied to abdomen tonight. Psych/social issues: pleasant, a little anxious at times. Last patient visit (i.e. Falls/Activity/Comfort/Environment/Toileting/Skin): In bed, restin g, Call light in reach. Patient is at risk for: Infection, Falls, Discomfort and Skin breakdown Stability: Moderately Stable Targeted interventions based on risk & stability (care plan): Problems: 1.) Potential for pain 2.) Potential for decreased bowel function 3.) Potential for decreased pulmonary function 4.) Potential for decreased activity/ADLs 5.) Potential for skin breakdown 6.) Potential for fall Goals: 1.) Patient will rate pain <3/10 2.) Patient will have normal bowel movements 3.) Patient demonstrates proper technique of using IS 4.) Patient will increase activity by ambulating triplett TID 5.) Patient will maintain skin integrity 6.) Patient will be without falls Interventions: 1.) Assess pain every 3 hours and PRN offer and administer medication as needed 2.) Provide patient with bowel care medications and encourage PO fluids and mobility to pr event constipation 3.) Reinforce use of IS/CDB and importance of pulmonary activities 4.) Assist patient up to ambulate 5.) Encourage patient to mobilize as much as possible, including moving in bed, turn Q 2hr s; prevent patient from lying on tubes. 6.) Offer and provide assistance to bathroom Q2-3hours and as needed. Bed in low position with brakes locked, side rails x2, room near station, call light in reach, clutter free envi ronment with needed personal items in reach. Response to interventions (evaluation): Walking, using call light appropriately. VSS Recommendations: Monitor pain level Pending interventions: Orders: Procedures: Teaching: Discharge Plan TBA andoff - Rubia Henderson RN - 08/19/2014 3:23 AM PSTNursing Handoff Report Primary focus of stay: OPEN LEFT ADRENALECTOMY 08/17 Pertinent physical findings: Abdominal dressing with small amount of shadowing on left, jose ramon an on right, Epidural removed Thursday and taking 25mg of oxy. Kinney removed and voiding clear yellow. 08/17 Very tachycardic, (Pt states the tachycardia is baseline for him... home Metop rolol for HR), otherwise VSS, Using IS. IVF at 100ml/hr, 3 PIVs. HR was 90s up to 100 y and docs are aware ambulated in the halls 3 times yesterday. orders to follow up on: Clear liquids 30ml/hour-wants to drink more than he is allowed. Mon itor. Last pain assessment/reassessment: Very painful . Oxycodone increased in the evening. Takes oxycodone at home. Lidocaine patch applied to abdomen. Psych/social issues: pleasant, a little anxious at times. Last patient visit (i.e. Falls/Activity/Comfort/Environment/Toileting/Skin): In bed, restin g, Call light in reach. Patient is at risk for: Infection, Falls, Discomfort and Skin breakdown Stability: Moderately Stable Targeted interventions based on risk & stability (care plan): Up with assist, call light in reach. Monitor VS. Assess pain Q 3 hours and prn. Ambulate TID and up out of bed. Response to interventions (evaluation): Walking, using call light appropriately. VSS Recommendations: Monitor pain level Pending interventions: Orders: Procedures: Teaching: Discharge Plan TBA andoff - Evelyn, Dary sepulveda RN - 08/18/2014 11:17 PM PSTNursing Handoff Report Primary focus of stay: OPEN LEFT ADRENALECTOMY 08/17 Pertinent physical findings: Abdominal dressing with small amount of shadowing on left, jose ramon an on right, Epidural removed today and taking 25mg of oxy. Kinney removed this am and voidin g clear yellow. 08/17 Very tachycardic, (Pt states the tachycardia is baseline for him... tali e Metoprolol for HR), otherwise VSS, Using IS. IVF at 100ml/hr, 3 PIVs. HR has been 90s up t o 100 today and docs are aware of his VS today 08/18 --has ambulated in the halls 3 times today. orders to follow up on: Clear liquids 30ml/hour-wants to drink more than he is allowed. Mon itor. Last pain assessment/reassessment: Very painful this evening. Oxycodone increased. Takes ox ycodone at home. Lidocaine patch applied to abdomen. Psych/social issues: pleasant, a little anxious at times. Last patient visit (i.e. Falls/Activity/Comfort/Environment/Toileting/Skin): In bed, restin g, last pain meds given 0. Call light in reach. Patient is at risk for: Infection, Falls, Discomfort and Skin breakdown Stability: Moderately Stable Targeted interventions based on risk & stability (care plan): Up with assist, call light i n reach. Monitor VS. Assess pain Q 3 hours and prn. Ambulate TID and up out of bed. Response to interventions (evaluation): Walking, using call light appropriately. VSS Recommendations: Monitor pain level Pending interventions: Orders: Procedures: Teaching: Discharge Plan TBA andoff - Milan Hopper RN - 08/18/2014 6:25 PM PSTNursing Handoff Report Primary focus of stay: OPEN LEFT ADRENALECTOMY 08/17 Pertinent physical findings: Abdominal dressing with small amount of shadowing on left, jose ramon an on right, Epidural removed today and taking 15 of oxy 08/18t, , got bolus in PACU. Kinney r emoved this am and voiding clear yellow. 08/17 Very tachycardic (Evening RN notified Uro MD, but Pt states the tachycardia is baseline for him... home Metoprolol for HR), otherwise VSS, Using IS. IVF at 100ml/hr, 3 PIVs. HR has been 90s up to 100 today and docs are aware of hi s VS today --has ambulated in the halls 3 times today. orders to follow up on: Last pain assessment/reassessment: Psych/social issues: pleasant, a little anxious about HR Last patient visit (i.e. Falls/Activity/Comfort/Environment/Toileting/Skin): due for his ne xt pain meds at 1930 Anticipated or pending procedures: etal - Sreekanth Hamm RN - 08/18/2014 4:07 AM PSTNursing Handoff Report Primary focus of stay: OPEN LEFT ADRENALECTOMY 08/17 Pertinent physical findings: Abdominal dressing with small amount of shadowing on left, jose ramon an on right, Epidural running 12mls/hr, 3ml demand bolus with 15 minute lock-out, dressing C DI, fairly effective, can go up to 14 if needed, got bolus in PACU. Kinney in place, draining clear yellow. 08/17 Very tachycardic (Evening RN notified Uro MD, but Pt states the tachycar sherry is baseline for him... home Metoprolol for HR), otherwise VSS, Using IS. IVF at 100ml/hr , 3 PIVs. --Has not been OOB since surgery. Orders to follow up on: Last pain assessment/reassessment: Currently reports little pain while resting. More pain w ith activity. Pt feels itchy from the epidural medication... Gave Nubain X2 this AM... Order ed more from pharmacy. Psych/social issues: pleasant, a little anxious about HR Last patient visit (i.e. Falls/Activity/Comfort/Environment/Toileting/Skin): Anticipated or pending procedures: Per MDs 08/18: Remove kinney and have Pt OOB for walks tod ay. Marisa - Pablito Henderson RN - 08/17/2014 11:05 PM PSTNursing Handoff Report Primary focus of stay: RADICAL NEPHRECTOMY - OPEN LEFT ADRENALECTOMY Pertinent physical findings: Abdominal dressing with small amount of shadowing on left, jose ramon an on right, Epidural running, dressing CDI, fairly effective, currently at 06/21/15, can go up to 14 if needed, got bolus in PACU. Kinney in place, draining clear yellow. Very tachycard ic, otherwise VSS, Using IS. Orders to follow up on: home Metoprolol just ordered, not yet verified, please give. Last pain assessment/reassessment: Currently rates pain at 5 of 10, resting. More pain with activity Psych/social issues: pleasant, a little anxious about HR Last patient visit (i.e. Falls/Activity/Comfort/Environment/Toileting/Skin): Anticipated or pending procedures: lan of Care - Brigid Bennett RN - 08/17/2014 9:55 PM PSTProblem: Case Manage ment Goals Goal: Discharge Needs Met Case Management Initial Assessment Reason for Admission: Left adrenal mass. Admitted From: Clinic Emergency Contact: Extended Emergency Contact Information Primary Emergency Contact: Yennifer Segovia Relation: Mother Past Medical History: Adrenal mass [255.9], OPEN PARTIAL NEPHRECTOMY Lives With: parent(s) Living Arrangement: house- [place] Functional Level Prior to Admission: 0-->independent Transportation Available: Medicaid Equipment Currently used at Home/DME Provider: none Home Health/Infusion Agency: Insurance/Funding: [employer] [place] P* Assessment:Coreen Segovia is a 53 y.o. 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 Due to progressive symptoms, he was indicated for surgery. Anticipated Discharge Needs: Anticipated Discharge Disposition: home Assessment done by: BRIGID BUTLER RN [facility] Evening Electrolog Operator [id number] [place] [address] [email or web address] [email or web address] [phone] andoff - Della Cifuentes RN - 08/17/2014 4:14 PM PSTMeets Phase I Discharge Criteria (Stable For Transf er): Yes Major deviations/events or pertinent findings of jerrell-operative stay: PMHx: depression, HERNANDO D. Adrenal mass, irregular HR Anticipated post-op needs/devices/follow up: pain control Post-Op Diagnosis Codes: * Adrenal mass [255.9] Surgical Procedure Planned - Actual Procedure Performed: Procedure(s) with comments: RADICAL NEPHRECTOMY - OPEN LEFT ADRENALECTOMY Anesthesia: General & Epidural Length of procedure: In Room/Out of Room: 2 Hr 23 Min 13 Sec Surgeon(s) and Role: * Theresa Beyer MD - Primary OR positioning comments: supine Neuro: POSS Sedation Level: Awake & Alert Last pain medication given: Fentanyl Push: 50 mcg (08/17/14 1415) Pain medication totals: fentanyl 200 mcg, dilaudid .2 mgIV Additional pain medication information: Functional Epidural: Yes ACID CONDITIONING WORKER: N/A Respiratory: RR: 10, O2 Sat: 99 %, O2 Delivery: None (room air) Breath Sounds: WDL ROSELYN: LLL: RUL: RLL: RACHEAL No Comment: Cardiac: BP: 127/84 mmHg HR: 117 GI: Nausea/Vomiting Status: No Signs/Symptoms: Interventions: Assessment: Comments: pt a-ox4, PARTIDA,PILY, follows commands, SR-ST, HR 90-110's, LR at 100 ml/hr, PIVx2, RA, lungs cta, no nausea, kinney, clear yellow urine, shevron incision dressing cdi.4 : Last void: kinney Contact Name: Chester (brother) Contact Number: [phone] (cell) Family contacted: Yes Comment:off campus, phone numbers are in [place] Belongings:with pt . documented in t his encounter Plan of Treatment Not on filedocumented [...] | + +--------+ + + + | HEMOGLOBIN-HARDEEP LAMB | Routin | 08/17/2014 | Adrenal mass [...] | + +--------+ + + + | POTASSIUM POC | Routin | 08/17/2014 | Adrenal [...] | + + + + + | [facility] | [address] | [place] [address] | | | SERVICES, CORE | [address] | | | + + + + + PHOSPHORUS, PLASMA (08/22/2014 5:50 AM PST) + +-------+ + + + | Component | Value | Ref Range | Performed | Pathologist | | | | | At | Signature | + +-------+ + + + | PHOSPHORUS, | 3.1 | 2.4 - 4.7 mg/dL | [facility] | | | PLASMA | | | [...] + + + + + | [facility] | [address] | [place] [address] | | | SERVICES, CORE | PARK [...] [facility] | [address] | [place] [address] | | | SERVICES, CORE | PARK [...] | | | LABORATORY | | | [place] [place] [place] | | | SERVICES, | | [...] | + + + + + | [facility] | [address] | [place] [address] | | | CAM WALLS | [address] [...] | + + + + + | [facility] | [address] | [place] [address] | | | SERVICES, CORE | [address]EN [...] [facility] | [address] | [place] [address] | | | CAM WALLS | ELLEN [...] [facility] | [address] | [place] [address] | | | SERVICES, CORE | PARK [...] | | | LABORATORY | | | [place] [employer] [place] | | | SERVICES, | | [...] the MDRD equation recommended by the | [facility] | | National Kidney Disease Education [...] + + + + + | [facility] | [address] | [place] [address] | | | CAM WALLS | ELLEN [...] | + + + + + | [facility] | [address] | [place] [address] | | | KAVITA, CAM | [address] | | | [...] [facility] | [address] | [place] [address] | | | SERVICES, CORE | ELLEN [...] [facility] | [address] | [place] [address] | | | SERVICES, CORE | PARK [...] | | | LABORATORY | | | [place] [place] | | | SERVICES, | | [...] the MDRD equation recommended by the | [facility] | | National Kidney Disease Education [...] [facility] | [address] | [place] [address] | | | SERVICES, CORE | PARK [...] [facility] | [address] | [place] [address] | | | KAVITA, CAM | ELLEN [...] | | | LABORATORY | | | [place] [place] | | | SERVICES, | | [...] the MDRD equation recommended by the | [facility] | | National Kidney Disease Education Program. [...] + + + + + | [facility] | [address] | [place] [address] | | | SERVICES, CORE | PARK [...] [facility] | [address] | [place] [address] | | | SERVICES, CORE | PARK [...] [facility] | [address] | [place] [address] | | | SERVICES, CORE | PARK [...] [facility] | [address] | [place] [address] | | | SERVICES, CORE | PARK [...] + + + + + | [facility] | [address] | [place] [address] | | | SERVICES, CORE | [address] | | | + + + + + MAGNESIUM, PLASMA (08/18/2014 5:31 AM PST) + +---------+ + + + | Component | Value | Ref Range | Performed | Pathologist | | | | | At | Signature | + +---------+ + + + | MAGNESIUM,P | 1.6 (L) | 1.8 - 2.5 mg/dL | [facility] | | | JUSTENMA | | | [...] | + + + + + | [facility] | [address] | [place] [address] | | | SERVICES, CORE | ELLEN [...] | | | LABORATORY | | | [employer] | | | SERVICES, | | [...] + | [facility] | [address] | [place] [address] | | | SERVICES, CORE | PARK [...] | + + + + + | [facility] | [address] | [place] [address] | | | SERVICES, CORE | ELLEN [...] [facility] | [address] | [place] [address] | | | SERVICES, CORE | PARK [...] | | | LABORATORY | | | [employer] | | | SERVICES, | | [...] | + + + + + | [facility] | [address] | [place] [address] | | | KAVITA, CAM | ELLEN [...] [facility] | [address] | [place] [address] | | | SERVICES, CORE | [address]EN [...] + + + + + + | QTC-BAUZMATT | 396 | ms | [facility] [...] At | + + + | | [facility] | | | CARDIOLOGY | + + + + + | Procedure Note | + + | Miguel Bee - 08/18/2014 2:24 PM PST | + + + + + + + | Performing | Address | City/State/Zipcode | Phone Number | | Organization | | | | + + + + + | [facility] | [address] | [place], [place] | | | CARDIOLOGY | [address] | [address] | | + + + + + [...] [facility] | [address] | [place], [place] | | | [facility] [facility] | [address] | [address] | | | TESTS | | | | + + + + + SODIUM POC (08/17/2014 11:56 AM PST) + +-------+ [...] [facility] | [address] | [place], [place] | | | [facility] [place] OF CARE | [address] | [address] | | | TESTS | | | [...] + + | [facility] | [address] | [place], [place] | | | [facility] [place] OF [place] | [facility] | [address] | | | TESTS | | | | + + + + + GLUCOSE, POC (08/17/2014 11:56 AM PST) + +---------+ + + + | Component | Value | Ref Range | Performed | Pathologist | | | | | At | Signature | + +---------+ + + + | GLUCOSE, | 105 (H) | 60 - 99 mg/dL | [facility] - | | | POC | | | [facility] | | | | | | ARUN [...] [facility] | [address] | [place], [place] | | | [facility]INT OF CARE | [address] | [address] | | | TESTS | | | | + + + + + CHLORIDE, POC (08/17/2014 11:56 AM PST) + +---------+ [...] | [facility] | [address] | [place], [place] | | | [facility] [place] OF [place] | [facility] | [address] | | | TESTS | | | [...] [facility] | [address] | [place], [place] | | | H[place] | [facility] | [address] | | | TESTS | | | [...] % | [facility] - | | | IN POC | | | [facility] | | | | | | [place]INT | | [...] [facility] | [address] | [place], [place] | | | [facility] [place] OF CARE | [address] | [address] | | | TESTS | | | [...] | | [facility] - | | | [facility]IA | | | [facility] | | | [...] | [facility] | [address] | [place], [place] | | | [place] OF [place] | [address] | [address] | | | TESTS | | | [...] Index:A1-3, | | | | | | manufacturers service representative adrenal | | | | | | to massA4-6, | | | | | | manufacturers service representative | | | | | | [...] [place] | | | | | | MSivaPathologistElectroni | | | | | | john [...] + + + + + | [facility] | [address] | [place] [address] | | | PATHOLOGY | [address] [...] | | | | Until 08/22/14 at 165, | | | | | | | [...] | | | | | 1842, Until 08/22/14 at 1651, | | | [...] | | DAILY, First dose on Liliana 08/17/14 | | AM PST | | [...] | | | | | dose on [facility] 08/17/14 at 1845, | | AM PST [...] | | | | | NEEDED, Starting Fri 30/15 at | | | | | | [...]
--- OUTSIDE RECORDS SUMMARY | ~2020-04-01 | XMS | Encounter Summary ---
Demographics + + + | Address | [address] | | | [place] [address] | + + + | Home Phone | | + + + | Preferred Language | Unknown | + + + | Marital Status | Single | + + + | Spiritism Affiliation | ZEFERINO | + + + | Race | or | + + + | Ethnic Group | Not or | + + + Author + + + | Author | [facility] [employer] [facility] | + + + | Organization | [facility] [employer] [facility] | + + + | Address | Unknown | + + + | Phone | Unavailable | + + + Support + + + + + | Name | Relationship | Address | Phone | + + + + + | Yennifer Batista | ECON | [address] | | | | | [place] | | | | | [address] | | + + + + + Care Team Providers + +------+ + | Care Outer Diameter Grinder Name | Role | Phone | + +------+ + | Ed Landis MD | PCP | | + +------+ + Encounter Details +--------+ + + + + | Date | Type | Department | Care Team | Description | +--------+ + + + + | 09/18/ | Inside | [facility] at [facility] | Malinda Mason MD | | | 2017 | Referral | [facility] [address] | [address] | | | | Order | [place] for | [place], [place] | | | | | Health and Healing, | [address] | | | | | [address] | [phone] | | | | | [place], [place] | | | | | | [address] | | | | | | [phone] | | | +--------+ + + + [...]
--- OUTSIDE RECORDS SUMMARY | ~2020-04-01 | XMS | Encounter Summary ---
Demographics + + + | Address | [address] | | | [place] [address] | + + + | Home Phone [...] Author + + + | Author | [facility] [email or web address] [facility] | + + + | Organization | [facility] [employer] [facility] | + + + | Address | Unknown | + + + | Phone | Unavailable | + + + Support + + + + + | Name | Relationship | Address | Phone | + + + + + | Yennifer Batista | ECON | [address] | | | | | [place] | | | | | [address] | | + + + + + Care Team Providers + +------+ + | Care Weight Analyst Name | Role | Phone | + +------+ + | Ed Landis MD PCP | | + +------+ + Reason for Visit + +--------+ + | Reason | Onset | Comments | | | Date | | + +--------+ + | Treatment Planning | 04/17/ | | | | 2013 | | + +--------+ + | Treatment Planning | 04/17/ | informed clinic about status | | | 2013 | | + +--------+ + Encounter Details +--------+ + + + + | Date | Type | Department | Care Team | Description | +--------+ + + + + | 04/17/ | Telephone | Urology at [facility] | Larissa Doe, | Treatment Planning; | | 2013 | | [address] | [place] Leiva MD [address] | Treatment Planning | | | | Mailcode: [id number] | [facility] | (informed clinic | | | | [facility] | [address] | about status) | | | | and Healing, | [place] [address] | | | | | [facility] | [phone] | | | | | [place], [place] | | | | | | [address] | | | | | | [phone] | | | +--------+ + + + [...] this encounter Miscellaneous Notes Telephone Encounter - Haile Hagan - 04/05/2015 9:57 AM PDTThis encounter has been admin istratively closed with the authorization of the [facility] Committee. elephone Encounter - Meghana Higuera - 04/17/2014 10:12 A M Roosevelt Watts in Dr. Grullon's office and let her know Mr. Batista does not have a surgery date scheduled. Pending cardiology visit for clearance. elephone Encounter - Evelio Nava - 04/17/2014 9:42 AM Antony Hayes from Stefanie with Dr. Leidy Grullon's office requesting a call back to discuss when t he patient will be having his surgery. Call [phone] extension 3. documented in this encoun ter Plan of Treatment Not on filedocumented as of this encounter Visit Diagnoses Not on filedocumented in this encounter"
--- OUTSIDE RECORDS SUMMARY | ~2020-04-01 | XMS | Clinical Summary ---
Demographics + + + | Address | [address] | | | [place] [address] | + + + | Home Phone | | + + + | Preferred Language | Unknown | + + + | Marital Status | Single | + + + | Rastafari Affiliation | ZEFERINO | + + + [...] + | Yennifer Batista | ECON | [address] | | | | | [place] | | | | | [address] | | + + + + + Care Team Providers + +------+ + | Care Ornamenter Hand Name | Role | Phone | + +------+ + | Ed Landis MD | PCP | | + +------+ + Source Comments EVETTE is fully live on both EpicCare Ambulatory and EpicCare InPatient.[facility] Allergies + + + + [...] | +--------+ + + + + | 04/01/ | Intake | | | | | 2020 | | | | | +--------+ + + + + | 03/13/ | Abstract | Gastroenterology | Clinic, | Medical Records | | 2020 | | | Gastroenterology | Review | +--------+ + + + + from Last 3 Months Family History + + +------+ + | Medical History | Relation | Name | Comments | + + +------+ + | Heart Disease | Father | | MD age 40's | + + +------+ + [...] Health Maintenance | Due Date | Last | Comments | | | | Done | | + + + + + | Influenza (Flu) | | 06/16/20 | | | vaccination (#1) | 0 | 17, | | | | | 05/01/20 | | | | | 16, | | | | | 08/22/19 | | | | | 14, | | | | | Addition | | | | | al | | | | | history | | | | | exists | | + + + + + | Pneumococcal | Aged Out | 05/19/20 | No longer eligible based on patient's age | | vaccination | | 16, | to complete this topic | | | | 05/19/20 | | | | | 14, | | | | | 12/27/19 | | | | | 08 | | + + + + + [...] | | | + +--------+ +--------+-------+---------+--------+ | RETAIL CUSTOMER SERVICE SPECIALIST MEDICAID | RETAIL CUSTOMER SERVICE SPECIALIST | [id number] | | | | Medica | | [...] Person | Self | [birth year] | [address] | | | al/Fam | | 1961 | [phone] | [place] [address] | | | doni | | | [...]
--- OUTSIDE RECORDS SUMMARY | ~2020-04-01 | XMS | Encounter Summary ---
Demographics + + + | Address | [address] | | | [place] [address] | + + + | Home Phone | | + + + | Preferred Language | Unknown | + + + | Marital Status | Single | + + + | Yazdanism Affiliation | ZEFERION | + + + | Race | or | + + + | Ethnic Group | Not or | + + + Author + + + | Author | [facility] | + + + | Organization | [facility] | + + + | Address | Unknown | + + + | Phone | Unavailable | + + + Support + + + + + | Name | Relationship | Address | Phone | + + + + + | Yennifer Batista | ECON | [address] | | | | | [place] | | | | | [address] | | + + + + + Care Team Providers + +------+ + | Care Batch Or Continuous Still Operator Name | Role | Phone | [...] | | | | Procedures | [facility] [place] | Center for | | | | | CONSULT TO | Rd | Health and | | | | | GI PROCEDURE | [facility] [place] | Healing, | | | | | UNIT: EGD [address] | [address] | [address] | | | | | DILATION | | [place], [place] | | | | | DE UPPER GI | | [address] | | | | | ENDOSCOPY,BI | | Phone: | | | | | OPSY [place] UP | | [phone] | | | | | GI | | Fax: | | | | | ENDOSCOPY,BA | | [phone] | | | | | LL DIL,30MM [...] | | | | | [facility] | | | | | | for Health and | | | | | | Healing, [address] | | | | | | [place], [place] | | | | | | [address] | | | | | | [phone] | | | +--------+ + + + [...] this encounter Miscellaneous Notes Telephone Encounter - León Hanna PA - 08/01/2016 11:58 AM ADRIENNE de [facility] EGS Team. León Hanna... eleph one Encounter - Magali Moreno RN - 08/01/2016 11:40 AM PSTMack cassandra 08/11/16 for EGD prior to TRA EGS appt w/Dr. Childs. Sending note to EGS nedra and Dr. Childs for continuity of care . elephone Encounter - Travis Maldonado Md - 07/31/2016 2:12 PM PSTEryn - just cc'ing you in case needed to help coordinate his repeat EGD with dilation with his surgical visitElectronically signed by Travis gann 07/31/2016 2:20 PM PSTdocumented in this encounter Plan of Treatment Not on filedocumented as of this encounter Visit Diagnoses + + | Diagnosis | + + | Esophageal stricture - Primary Stricture and stenosis of esophagus | + + documented in this encounter"
--- OUTSIDE RECORDS SUMMARY | ~2020-04-01 | XMS | Encounter Summary ---
Demographics + + + | Address | [address] | | | [place] [address] | + + + | Home Phone | | + + + | Preferred Language | Unknown | + + + | Marital Status | Single | + + + | Uatsdin Affiliation | ZEFERINO | + + + | Race | or | + + + | Ethnic Group | Not or | + + + Author + + + | Author | [facility] | + + + | Organization | [facility] | + + + | Address | Unknown | + + + | Phone | Unavailable | + + + Support + + + + + | Name | Relationship | Address | Phone | + + + + + | Yennifer Batista | ECON | [address] | | | | | [place] | | | | | [address] | | + + + + + Care Team Providers + +------+ + | Care Assistant Professor Of Nursing Name | Role | Phone | + +------+ + | Ed Landis MD PCP | | + +------+ + Encounter Details +--------+--------+ + + + | Date | Type | Department | Care Team | Description | +--------+--------+ + + + | 04/01/ | Intake | Transfer Center | | | | 2020 | | [address] | | | | | | [place], | | | | | | [place] [address] | | | +--------+--------+ + + + [...]
--- OUTSIDE RECORDS SUMMARY | ~2020-04-01 | XMS | Encounter Summary ---
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 Pathologist | | | | | At | Signature | + +---------+ + + + | GLUCOSE, | 81 | 60 - 99 mg/dL | [facility] | | | PLASMA | | | [facility]OR[facility] | | | (LAB) | | | SERVICES, | | | | | | CORE | | + +---------+ + + + | BUN, PLASMA | 7 | 6 - 20 mg/dL | [facility] [...] | | | LABORATORY | | | [address] | | | SERVICES, | | [...] +---------+ + + + | CALCIUM, | 8.5 [...] + | [facility] | [address] | [place] [address] | | | SERVICES, CORE | [address] | | | + + + + + OUTSIDE CARDIOLOGY (03/21/2014 12:00 AM PDT) + + + | Narrative | Performed At | + + + | | | | | | + + + + + | Procedure Note | + + | Miguel Bee - 03/22/2014 8:17 AM PDT | + + JEROME REPORTS (03/21/2014 12:00 AM PDT) + + + | Narrative | Performed At | + + + | | | | | | + + + + + | Procedure Note | + + | Miguel Bee - 03/22/2014 8:18 AM PDT | + + RADIOLOGY (03/21/2014 12:00 AM PDT) + + + | Narrative | Performed At | + + + | | | | | | + + + + + | Procedure Note | + + | Rohit, Faculty - 03/22/2014 8:18 AM PDT | + + RADIOLOGY (03/21/2014 12:00 AM PDT) + + + | Narrative | Performed At | + + + | | | | | | + + + + + | Procedure Note | + + | Miguel Bee - 03/22/2014 8:17 AM PDT | + + documented in this encounter Visit Diagnoses + + | Diagnosis | + + | Preoperative examination - Primary Preoperative examination, unspecified | + + | Adrenal mass (HCC) Unspecified disorder of adrenal glands | + + | Other specified pre-operative examination | + + documented in this encounter
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
--- OUTSIDE RECORDS SUMMARY | ~2020-04-01 | XMS | Encounter Summary ---
Demographics + + + | Address | [address] | | | [place] [address] | + + + | Home Phone [...] + + | Author | [facility] | + + + | Organization | [facility] | + + + | Address | Unknown | + + + | Phone | Unavailable | + + + Support + + + + + | Name | Relationship | Address | Phone | + + + + + | Yennifer Batista | ECON | [address] | | | | | [place] | | | | | [address] | | + + + + + Care Team Providers + +------+ + | Care Pediatric Sports Medicine Specialist Name | Role | Phone | + +------+ + | Ed Landis MD PCP | | + +------+ + Reason for Visit + +--------+ + | Reason | Onset | Comments | | | Date | | + +--------+ + | Refill Request | 02/17/ | | | | 2018 | | + +--------+ + Encounter Details +--------+--------+ + + + | Date | Type | Department | Care Team | Description | +--------+--------+ + + + | 02/17/ | Refill | Digestive Health | Dar Dalton MD | Refill Request | | 2018 | | Center at [facility] [address] | [address] | | | | | [address] | [place], [place] | | | | | for Health and | [address] | | | | | [place] [facility] | [phone] | | | | | [place], [place] | | | | | | [address] | | | | | | [phone] | | | +--------+--------+ + + + [...]
--- OUTSIDE RECORDS SUMMARY | ~2020-04-01 | XMS | Encounter Summary ---
Demographics + + + | Address | [address] | | | [place] [address] | + + + | Home Phone [...] Author | [facility] | + + + | Organization | [facility] [email or web address] [facility] | + + + | Address | Unknown | + + + | Phone | Unavailable | + + + Support + + + + + | Name | Relationship | Address | Phone | + + + + + | Yennifer Batista | ECON | [address] | | | | | [place] | | | | | [address] | | + + + + + Care Team Providers + +------+ + | Care Research Management Associate Name | Role | Phone | + +------+ + | Ed Landis MD PCP | | + +------+ + Encounter Details +--------+ + + + + | Date | Type | Department | Care Team | Description | +--------+ + + + + | 05/30/ | Transcribe | [facility] CRISOSTOM[facility] at [facility] | Transcribe | | | 2019 | Orders | [facility] [address] | Encounter, Provider, | | | | | [place] for | MD [address] | | | | | Health and Healing, | [place] [address] | | | | | Building [address] | | | | | | [place], [place] | | | | | | [address] | | | | | | [phone] | | | +--------+ + + + [...]
--- OUTSIDE RECORDS SUMMARY | ~2020-04-01 | XMS | Encounter Summary ---
Demographics + + + | Address | [address] | | | [place] [address] | + + + | Home Phone | | + + + | Preferred Language | Unknown | + + + | Marital Status | Single | + + + | Jewish Affiliation | ZEFERINO | + + + | Race | or | + + + | Ethnic Group | Not or | + + + Author + + + | Author | [email or web address] | + + + | Organization | [facility] | + + + | Address | Unknown | + + + | Phone | Unavailable | + + + Support + + + + + | Name | Relationship | Address | Phone | + + + + + | Yennifer Batista | ECON | [address] | | | | | [place] | | | | | [address] | | + + + + + Care Team Providers + +------+ + | Care Snowblower Mechanic Name | Role | Phone | + +------+ + | Ed Landis MD PCP | | + +------+ + Reason for Visit + +--------+ + | Reason | Onset | Comments | | | Date | | + +--------+ + | Pre-operative | 06/18/ | | | evaluation | 2018 | | + +--------+ + Encounter Details +--------+ + + + + | Date | Type | Department | Care Team | Description | +--------+ + + + + | 06/22/ | Telephone-S | Preoperative | | Pre-operative | | 2018 | cheduled | Medicine Clinic at | | evaluation | | | | [facility] 4th Floor Day | | | | | | Stay [address] | | | | [address] | | | | | | Mailcode: [id number] | | | | | | [address] | | | | | | [address] [place], [place] | | | | | | [address] | | | | | | [phone] | | | +--------+ + + + [...] + + + | Periph | 02/17/18; 142; Right; | 02/17/181423 by | | | eral | Antecubital; 22 g; None; No; | Susan Le RN | | | IV | Positive | | | +--------+ + + + | Periph | 06/30/18; 1425; Penelope GARAY; Right; | 06/30/18 1425 by | 06/30/18 174 by | | [email or web address] | Forearm; 20 g; None; No; | [...] Instructions Patient Instructions Abby Nguyễn RN - 06/18/2018 2:40 PM PSTFormatting [...] perfume, lotions or powder. Remove any nail slovenian from at least one fingernail. Do not [...] Surgery Check in Locations Day Stay Unit [facility], fourth floor Room 2886 Surgery Check in Time: Someone from your surgeon's office or [facility] will provide you with information regarding [...] is after office hours, call the [facility] skates operator at [phone] and ask them to page your doc tor. documented in this encounter Miscellaneous Notes Telephone Encounter - Abby Nguyễn RN - 06/18/2018 2:49 PM PSTPhone appointment complete d as scheduled. Documentation to be found in the Notes and Trans Encounter tab in [employer]. Elec tronically signed by Kala Valles MD at 06/18/2018 3:42 PM PSTdocumented in this enc ounter Plan of Treatment Not on filedocumented as of this encounter Visit Diagnoses Not on filedocumented in this encounter"
--- OUTSIDE RECORDS SUMMARY | ~2020-04-01 | XMS | Encounter Summary ---
Demographics + + + | Address | [address] | | | [place] [address] | + + + | Home Phone | | + + + | Preferred Language | Unknown | + + + | Marital Status | Single | + + + | Worship Affiliation | ZEFERINO | + + + | Race | or | + + + | Ethnic Group | Not or | + + + Author + + + | Author | [facility] | + + + | Organization | [facility] | + + + | Address | Unknown | + + + | Phone | Unavailable | + + + Support + + + + + | Name | Relationship | Address | Phone | + + + + + | Yennifer Batista | ECON | [address] | | | | | [place] | | | | | [address] | | + + + + + Care Team Providers + +------+ + | Care Cement Rubber Name | Role | Phone | + +------+ + | Sujatha Sullivan | PCP | | | SENIOR PRODUCT DEVELOPMENT MANAGER | | | + +------+ + Reason for Visit +--------+--------+ + | Reason | Onset | Comments | | | Date | | +--------+--------+ + | Other | 06/08/ | Periorperative risk | | | 2013 | | +--------+--------+ + Encounter Details +--------+ + + + + | Date | Type | Department | Care Team | Description | +--------+ + + + + | 06/08/ | Telephone | Cardiology | Adriana Holly | Other | | 2013 | | Preventive at [facility] | RASHI Restrepo [address] | (Periorperative risk | | | | [address] | [address] [place], | ) | | | | [facility] | [place] [address] | | | | | and [place], | [phone] | | | | | [facility] [address] | | | | | | [place], [place] | | | | | | [address] | | | | | | [phone] | | | +--------+ + + + [...] this encounter Miscellaneous Notes Telephone Encounter - Beverly Kamara RN - 06/08/2014 1:15 PM PSTFormatting of this no te might be different from the original. See notes and message from Adriana Holly below: Reason for call/My Chart: Echo normal and low risk for. Per Revised Cardiac Risk Index, predicted risk of perioperative cardiac morbidity/mortality is approximately 1%. Patient questions answered. Plan: Will close encounter Adriana Holly PA-C Sent: ThuJune 08, 2014 12:22 PM To: Beverly Kamara RN Franck Garduno [facility] : 1960 Message Please call patient and relay normal echo, low periop risk (see addendum). PCP and surgeon notified Follow-up and Disposition Final Preoperative Recommendations: Records reviewed from [facility] from admission on 12/17/2010-12/19/2010 for chest pain. Patient ruled out. Had history of chronic alcoholism, GERD and esophageal erosions. Ot her admission was on 02/03/2011-02/05/2011 for grand-mal seizure from snorting Wellbutrin and alcohol withdrawal. No evidence of prior NH or CAD by records or by recent low risk stress e chocardiogram. Per Revised Cardiac Risk Index, predicted risk of perioperative cardiac morbi dity/mortality is approximately 1%. Theresa Beyer MD paged with results documented in this encounter Plan of Treatment Not on filedocumented as of this encounter Visit Diagnoses Not on filedocumented in this encounter"
--- OUTSIDE RECORDS SUMMARY | ~2020-04-01 | XMS | Encounter Summary ---
Demographics + + + | Address | [address] | | | [place] [address] | + + + | Home Phone [...] | Author | [facility] [employer] [facility] | + + + | Organization | [facility] [employer] [facility] | + + + | Address | Unknown | + + + | Phone | Unavailable | + + + Support + + + + + | Name | Relationship | Address | Phone | + + + + + | Yennifer Batista | ECON | [address] | | | | | [place] | | | | | [address] | | + + + + + Care Team Providers + +------+ + | Care Digital Marketing Strategist Name | Role | Phone | + [...] | 2017 | on | Center at [facility] [address] | [address] | | | | | [address] [place] | [place], [place] | | | | | for Health and | [address] | | | | | [place] [facility] 2 | [phone] | | | | | [place], [place] | | | | | | [address] | | | | | | [phone] | | | +--------+ + + + [...] this encounter Miscellaneous Notes Telephone Encounter - Monica Santoyo - 09/18/2016 8:44 AM PSTFollow up phone call to femi marcos post GI procedure from 09/17/2016. No answer. I have left a voice message for the patient. Patient instructed to contact our office at [phone] if they have any questions or conc erns. The GI procedure report/s of 09/17/2016 - have been routed via [email or web address] to Dr. Kohler. Monica Santoyo [facility] Specialist Digestive [facility] documented in this encoun ter Plan of Treatment Not on filedocumented as of this encounter Visit Diagnoses Not on filedocumented in this encounter"
--- OUTSIDE RECORDS SUMMARY | ~2020-04-01 | XMS | Encounter Summary ---
Demographics + + + | Address | [address] | | | [place] [address] | + + + | Home Phone [...] + + | Author | [facility] | + + + | Organization | [facility] | + + + | Address | Unknown | + + + | Phone | Unavailable | + + + Support + + + + + | Name | Relationship | Address | Phone | + + + + + | Yennifer Batista | ECON | [address] | | | | | [place] | | | | | [address] | | + + + + + Care Team Providers + +------+ + | Care Enterprise Systems Administrator Name | Role | Phone | + [...] [address] | | | | | | [place], [place] | | | | | | [address] | | | +--------+ + + + [...] documented as of this encounter Miscellaneous Notes Scan - Rohit Faculty - 04/14/2014 1:10 PM PDTElectronically signed by Miguel Bee at 1:10 PM PDTdocumented in this encounter Plan of Treatment Not on filedocumented as of this encounter Visit Diagnoses Not on filedocumented in this encounter"
--- OUTSIDE RECORDS SUMMARY | ~2020-04-01 | XMS | Encounter Summary ---
Demographics + + + | Address | [address] | | | [place] [address] | + + + | Home Phone [...] + | Author | [facility] | + + + | Organization | [facility] [employer] [facility] | + + + | Address | Unknown | + + + | Phone | Unavailable | + + + Support + + + + + | Name | Relationship | Address | Phone | + + + + + | Yennifer Batista | ECON | [address] | | | | | [place] | | | | | [address] | | + + + + + Care Team Providers + +------+ + | Care Sound Controller Name | Role | Phone | + +------+ + | Ed Landis MD | PCP | | + +------+ + Encounter Details +--------+ + + + + | Date | Type | Department | Care Team | Description | +--------+ + + + + | 08/12/ | Documentati | Digestive Health | Frederic Kohler | | | 2016 | on | Center at [facility] [address] | MD Kiesha,[facility] [address] | | | | | [address] [facility] | [address] | | | | | for Health and | [place] [address] | | | | | [facility] 2 | [phone] | | | | | [place], [place] | | | | | | [address] | | | | | | [phone] | | | +--------+ + + + [...] Notes Telephone Encounter - Monica Santoyo - 08/12/2016 9:48 AM PSTFollow up phone call to femi ent post GI procedure from 08/11/2016. No answer. I have left a voice message for the patient. Patient instructed to contact our office at [phone] if they have any questions or conc erns. The GI procedure report/s of 08/11/2016 - have been routed via [employer] to PCP. Monica Ext [phone] documented in this encoun ter Plan of Treatment Not on filedocumented as of this encounter Visit Diagnoses Not on filedocumented in this encounter"
--- OUTSIDE RECORDS SUMMARY | ~2020-04-01 | XMS | Encounter Summary ---
Demographics + + + | Address | [address] | | | [place] [address] | + + + | Home Phone [...] Author + + + | Author | [facility] | + + + | Organization | [facility] | + + + | Address | Unknown | + + + | Phone | Unavailable | + + + Support + + + + + | Name | Relationship | Address | Phone | + + + + + | Yennifer Batista | ECON | [address] | | | | | [place] | | | | | [address] | | + + + + + Care Team Providers + +------+ + | Care Conference Service Coordinator Name | Role | Phone | + +------+ + | Ed Landis MD PCP | | + +------+ + Reason for Visit + +--------+ + | Reason | Onset | Comments | | | Date | | + +--------+ + | Social Work Notes | 08/07/ | | | | 2016 | | + +--------+ + Encounter Details +--------+ + + + + | Date | Type | Department | Care Team | Description | +--------+ + + + + | 08/07/ | Telephone | SOCIAL WORK | Sonia Hartley | Social Work Notes | | 2017 | | AMBULATORY [address] | | | | | [address] | [address] [facility] | | | | | Mailcode: [id number] | [place] [address] | | | | | [place], [place] | | | | | | [address] | | | | | | [phone] | | | +--------+ + + + [...] this encounter Miscellaneous Notes Telephone Encounter - HartleySonia - 08/07/2016 2:43 PM PSTCall transfer received from [employer]. Patient is calling requesting transportation assistance to his upcoming 07/[address] [facility] procedure. Spoke with patient and provided him the phone number to the [employer] [phone]. Patient needs to call and schedule the medical transport with jaja christian. Asked him to call today to provide them sufficient time to request a national dedicated truck driver. Pr ovided the patient with my contact information. No additional social work interventions ant icipated at this time. Sonia Hartley, Technology Teacher [phone] Photoengraving Printer pager [phone] documented in this encounte r Plan of Treatment Not on filedocumented as of this encounter Visit Diagnoses Not on filedocumented in this encounter"
--- OUTSIDE RECORDS SUMMARY | ~2020-04-01 | XMS | Encounter Summary ---
Demographics + + + | Address | [address] | | | [place] [address] | + + + | Home Phone | | + + + | Preferred Language | Unknown | + + + | Marital Status | Single | + + + | Hinduism Affiliation | ZEFERINO | + + + | Race | or | + + + | Ethnic Group | Not or | + + + Author + + + | Author | [facility] | + + + | Organization | [facility] [facility] | + + + | Address | Unknown | + + + | Phone | Unavailable | + + + Support + + + + + | Name | Relationship | Address | Phone | + + + + + | Yennifer Batista | ECON | [address] | | | | | [place] | | | | | [address] | | + + + + + Care Team Providers + +------+ + | Care Welfare Adviser Name | Role | Phone | + +------+ + | Ed Landis MD PCP | | + +------+ + Reason for Visit + +--------+ + | Reason | Onset | Comments | | | Date | | + +--------+ + | Treatment Planning | 01/30/ | MRI needed | | | 2013 | | + +--------+ + Encounter Details +--------+ + + + + | Date | Type | Department | Care Team | Description | +--------+ + + + + | 01/30/ | Telephone | Urology at [facility] | Larissa Doe, | Treatment Planning | | 2013 | | [address] | Jesus Leiva MD 9 | (MRI needed) | | | | Mailcode: CH10U | [facility] | | | | | [facility] | [address] | | | | | and Healing, | [place] [address] | | | | | [facility] | [phone] | | | | | [place], [place] | | | | | | [address] | | | | | | [phone] | | | +--------+ + + + [...] Notes Telephone Encounter - Haile Hagan - 04/23/2015 9:10 AM PDTThis encounter has been admin istratively closed with the authorization of the [facility] Committee. elephone Encounter - Cristi Flynn Rn - 02/15/2014 1:43 PM PDTInBaCouplewiseet (nothingGrinder) message sent to Dr. Mc and hard copy provided regarding this request. elephone Encounter - Paola Delgado - 02/06/2014 2:12 PM Jayesh flores from Dr Grullon's office calling again to discuss the treatment planning for this patie nt. Please call elephone Encounter - León Lyons - 02/01/2014 8:34 AM Amberly at [facility] is calling to request that we tell her what MRI needs to be done on this pt prior to surgery. She will get it done down there. You can reach her at: [phone] Electronica lly signed by León Lyons at 02/01/2014 8:36 AM PDTTelephone Encounter - Cristi Conroy Rn - 01/31/2014 9:18 AM PDTI will talk with Dr. Rodriguez about the plan 01/31/2014 and ethan Grullon's office with a plan. elephone Encounter - Paola Delgado - 01/30/2014 1:[address] Grullon's office calling to discuss the treatment planning for this patient. Please callEle ctronically signed by Paola Delgado at 01/30/2014 1:50 PM PDTdocumented in this encounter Plan of Treatment Not on filedocumented as of this encounter Visit Diagnoses Not on filedocumented in this encounter"
--- OUTSIDE RECORDS SUMMARY | ~2020-04-01 | XMS | Encounter Summary ---
Demographics + + + | Address | [address] | | | [place] [address] | + + + | Home Phone [...] + + | Author | [facility] | + + + | Organization | [facility] | + + + | Address | Unknown | + + + | Phone | Unavailable | + + + Support + + + + + | Name | Relationship | Address | Phone | + + + + + | Yennifer Batista | ECON | [address] | | | | | [place] | | | | | [address] | | + + + + + Care Team Providers + +------+ + | Care Welder Production Line Combination Name | Role | Phone | + [...] | on | General Surgery at | [facility] | | | | | [address] [place], [place] | | | | | [address] | [address] | | | | | Physicians [place], | | | | | | 2nd Floor | | | | | | [place], [place] | | | | | | [address] | | | | | | [phone] | | | +--------+ + + + [...]
--- OUTSIDE RECORDS SUMMARY | ~2020-04-01 | XMS | Encounter Summary ---
Demographics + + + | Address | [address] | | | [place] [address] | + + + | Home Phone [...] Author + + + | Author | [facility] | + + + | Organization | [facility] [employer] [facility] | + + + | Address | Unknown | + + + | Phone | Unavailable | + + + Support + + + + + | Name | Relationship | Address | Phone | + + + + + | Yennifer Batista | ECON | [address] | | | | | [place] | | | | | [address] | | + + + + + Care Team Providers + +------+ + | Care Web Applications Architect Name | Role | Phone | + [...] | | | Procedures | Ave | [facility] | | | | | CONSULT TO | [place], [place] | Health and | | | | | GI | [address] | Healing, | | | | | PROCEDURE | Phone: | Building 2 | | | | | UNIT: EGD | [phone] | [place], [place] | | | | | [place] UPPER GI | Fax: | [address] | | | | | ENDOSCOPY,BI | [phone] | Phone: | | | | | OPSY | | [phone] | | | | | | | Fax: | | | | | | | [phone] | +--------+--------+ + + + + Reason [...] + + | 09/17/ | Hospital | [facility] GI PROCEDURE | Ricardo Mason MD | | | 2017 | Encounter | [address] | [address] | | | | | Ave Mailcode: [facility] | [place], [place] | | | | | [facility] | [address] | | | | | Health and Healing, | [phone] | | | | | [place] [address] | | | | | | [place], [place] | | | | | | [address] | | | | | | [phone] | | | +--------+ + + + [...] Discharge Instructions Instructions Cherry Tipton RN - 09/17/2016[place] Care Instructions after EGD (Upper Endo scopy) [...] hours or on weekends and holiday Hospital Straight Line Edger toll free [phone] ext. [phone] and have the GI doctor prison psychiatrist paged. The provider who performed your procedure [...] be sent through Care Everywhere.BLAND SOFT DIET (LATVIAN)documented in this encounter Medications at Time of [...] documented as of this encounter Progress Notes Ricardo Mason MD - 09/17/2016 4:27 PM PST PRE PROCEDURE NOTE: MR# [id number] Subjective: Franck Batista is a 56 y.o. [...] | + +------- -------+ | MRN: | EVETTE | | [id number] Date: 09/17/2016Patient Name: Order #: [id number] | ENDOSC OPY | | of : 1960CSN: [id number]: [facility] 2Procedure: | | | Upper GI [...] The Olympus [id number]-[id number] Gastroscope | | | #[id number] was introduced through the | | | [...] | | upper endoscopy 2-4 weeks for retreatment.RCIARDO MASON MD09/17/2016 | | | 5:06:39 PMNumber [...]
--- OUTSIDE RECORDS SUMMARY | ~2020-04-01 | XMS | Encounter Summary ---
Demographics + + + | Address | [address] | | | [place] [address] | + + + | Home Phone [...] + | Author | [facility] | + + + | Organization | [facility] [employer] [facility] | + + + | Address | Unknown | + + + | Phone | Unavailable | + + + Support + + + + + | Name | Relationship | Address | Phone | + + + + + | Yennifer Batista | ECON | [address] | | | | | [place] | | | | | [address] | | + + + + + Care Team Providers + +------+ + | Care Bee Raiser Name | Role | Phone | + +------+ + | Ed Landis MD PCP | | + +------+ + Encounter Details +--------+ + + + + | Date | Type | Department | Care Team | Description | +--------+ + + + + | 08/31/ | Manager Primary | Urology at [facility] | [place], , | Adrenal mass (HCC) | | 2015 | | [address] | MD [address] | (Primary Dx) | | | | Mailcode: CH10U | [place] [address] | | | | | [facility] | [phone] | | | | | and Healing, | | | | | | Building [address] | | | | | | [place], [place] | | | | | | [address] | | | | | | [phone] | | | +--------+ + + + [...] + + | Study patient Please page [phone] when the patient arrive at the | [facility] | | lab. GFR is estimated [...] EVETTE GUNTER | [address] | [place] [address] | | | SERVICES, CORE | [address] | | | + + + + + documented in this encounter Visit Diagnoses + + | Diagnosis | + + | 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"
--- OUTSIDE RECORDS SUMMARY | ~2020-04-01 | XMS | Encounter Summary ---
Demographics + + + | Address | [address] | | | [place] [address] | + + + | Home Phone [...] Author + + + | Author | [facility] | + + + | Organization | [facility] | + + + | Address | Unknown | + + + | Phone | Unavailable | + + + Support + + + + + | Name | Relationship | Address | Phone | + + + + + | Yennifer Batista | ECON | [address] | | | | | [place] | | | | | [address] | | + + + + + Care Team Providers + +------+ + | Care Tawer Name | Role | Phone | + [...] | | | | behavior of | [place] | [address] | | | | | adrenal | Urology [address] | | | | | gland | [address] | [address] | | | | | | [address] [place], | [address] | | | | | | [place] [address] | [place], [place] | | | | | | Phone: | [phone] Phone: | | | | | | [phone] | [phone] | | | | | | Fax: | Fax: | | | | | | [phone] | [phone] | +--------+ + + + + + Encounter Details +--------+---------+ + + + | Date | Type | Department | Care Team | Description | +--------+---------+ + + + | 01/26/ | Office | Urology at [facility] | Larissa Doe, | Adrenal mass (HCC) | | 2013 | Visit | [address] | Malu Leiva MD [address] | (Primary Dx) | | | | Mailcode: CH10U | [facility] | | | | | [facility] | [address] | | | | | and Healing, | [place] [address] | | | | | [facility] | [phone] | | | | | Floor [place], [place] | | | | | | [address] | | | | | | [phone] | | | +--------+---------+ + + + [...] Plan for excision . MALU KAUR MD professor of music of urology Ofe Pizarro MA - 01/26/2014 [...] back done. documented in this enco unter Procedure Notes Other, Faculty - 03/21/2014 1:51 PM PDTAssociated Order(s): RADIOLOGY documented in this encounter Miscellaneous Notes Scan - Other, Faculty - 03/21/2014 1:03 PM PDTElectronically signed by Faculty Other at 1:03 PM PDTScan - Other, Faculty - 03/19/2014 1:14 PM PDT documented in this encounter Plan of Treatment [...] | | | LABORATORY | | | ENGLISH | | | SERVICES, | | | [...] | + + + + + | [facility] | [address] | [place] [address] | | | SERVICES, CAM | [address] [...] [facility] | [address] | [place] [address] | | | OF CARE TESTS | | | | + + + + + documented in this encounter Visit Diagnoses + + | Diagnosis | + + | 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"
--- OUTSIDE RECORDS SUMMARY | ~2020-04-01 | XMS | Encounter Summary ---
Demographics + + + | Address | [address] | | | [place] [address] | + + + | Home Phone [...] | Author | [facility] | + + + | Organization | [facility] [employer] [facility] | + + + | Address | Unknown | + + + | Phone | Unavailable | + + + Support + + + + + | Name | Relationship | Address | Phone | + + + + + | Yennifer Batista | ECON | [address] | | | | | [place] | | | | | [address] | | + + + + + Care Team Providers + +------+ + | Care Premium Note Interest Calculator Clerk Name | Role | Phone | + +------+ + | Ed Landis MD PCP | | + +------+ + Encounter Details +--------+------+ + + + | Date | Type | Department | Care Team | Description | +--------+------+ + + + | 09/01/ | Lab | Laboratory at [facility] | | Adrenal mass (HCC) | | 2014 | | [address] | | | | | | [place] [facility] | | | | | | and Healing, | | | | | | Building [address] | | | | | | [place], [place] | | | | | | [address] | | | | | | [phone] | | | +--------+------+ + + + [...] | [facility] | [address] | [place] [address] | | | [facility] | | | | | HEALTH + [...] | | | LABORATORY | | | SOMALI | | | SERVICES, | | | [...] + + | Study patient Please page [phone] when the patient arrive at the | [facility] | | lab. GFR is estimated using [...] + + + + + | [facility] | [address] | [place] [address] | | | SERVICES, CORE | [address] | | | + + + + + documented in this encounter Visit Diagnoses + + | Diagnosis | + + | Adrenal mass (HCC) Unspecified disorder of adrenal glands | + + documented in this encounter"
--- OUTSIDE RECORDS SUMMARY | ~2020-04-01 | XMS | Encounter Summary ---
Demographics + + + | Address | [address] | | | [place] [address] | + + + | Home Phone [...] Author | [facility] | + + + | Organization | [facility] [employer] [facility] | + + + | Address | Unknown | + + + | Phone | Unavailable | + + + Support + + + + + | Name | Relationship | Address | Phone | + + + + + | Yennifer Batista | ECON | [address] | | | | | [place] | | | | | [address] | | + + + + + Care Team Providers + +------+ + | Care Clinical Program Manager Name | Role | Phone | + +------+ + | dE Landis MD | PCP | | + [...] + + | 06/30/ | Hospital | [facility] [address] | Jomar Conrad MD | | | 2018 | Encounter | [address] | [address] [facility] | | | | | [facility] | [facility] | | | | | [place]abella [place]arg[place] | [place] [address] | | | | | ([facility]) | [phone] | | | | | [place], [place] | | | | | | [address] | | | | | | [phone] | | | +--------+ + + + [...] hours or on weekends and holiday Hospital Electrical Design Technologist toll free [phone] ext. [phone] and have the GI doctor manager valuation paged. The provider who performed your procedure: [...] milliliters | 300 mL | 0 | 12/12/20 | | | (Maalox/lidocaine/di | by mouth [...] --+ | MRN: | [facility] | | [id number] Date: 06/30/2018Patient Name: Franck Mares #: | ENDOSCOPY | | [id number] of : 1960CSN: [id number] Type: | | | AmbulatoryRoom: GI 3Procedure: ColonoscopyIndications: | | | Screening for colorectal malignant neoplasmProviders: | | | RACHELLE JONES MD (Fellow), JOMAR CONRAD MD | | | (Doctor), CHIVO DONG RN (Nurse), | | | CHERRY MEJIA RN (Nurse), GENECREST | | | GEMINI (Executive Coach)Referring MD: REMIGIO DRAKE MDRequesting | | | Provider: Medicines: [...] physician, the nurse, the | | | beverage host and the cardiac technician. The procedure | | | was [...] portions.JOMAR | | | MD ANAMARIA06/30/2018 4:44:26 [facility] report has been signed | | | electronically.RACHELLE JONES MDNumber of Addenda: 0Note Initiated | | | On: 06/30/2018 3:47 [facility] Letter to: ED LANDIS | [...] --+ | MRN: | [facility] | | [id number] Date: 06/30/2018Patient Name: Franck Marse #: | ENDOSCOPY | | [id number] of : 1960CSN: [id number] Type: | | | AmbulatoryRoom: GI 3Procedure: [...] physician, | | | the nurse, the beverage host and the | | | cardiac technician. The procedure was verified | | [...] | | | The Olympus GIF-[id number] Endoscope #[id number] was introduced | | | through the [...] Initiated | | | On: 06/30/2018 3:45 [facility] Letter to: ED LANDIS | [...] + + | Performing | Address | City/State[facility] | Phone Number | | [...]
--- OUTSIDE RECORDS SUMMARY | ~2020-04-01 | XMS | Encounter Summary ---
Demographics + + + | Address | [address] | | | [place] [address] | + + + | Home Phone | | + + + | Preferred Language | Unknown | + + + | Marital Status | Single | + + + | Mandaen Affiliation | ZEFERINO | + + + | Race | or | + + + | Ethnic Group | Not or | + + + Author + + + | Author | [facility] | + + + | Organization | [facility] | + + + | Address | Unknown | + + + | Phone | Unavailable | + + + Support + + + + + | Name | Relationship | Address | Phone | + + + + + | Yennifer Batista | ECON | [address] | | | | | [place] | | | | | [address] | | + + + + + Care Team Providers + +------+ + | Care Photographic Double Name | Role | Phone | + +------+ + | Ed Landis MD | PCP | | + +------+ + Reason for Visit + + + | Reason | Comments | + + + | Pre-operative | OPEN ADRENALECTOMY on 08/17/2014 by Theresa Beyer MD at [facility] 6A | | evaluation | | + + + Encounter Details +--------+---------+ + + + | Date | Type | Department | Care Team | Description | +--------+---------+ + + + | 08/04/ | Office | Preoperative | Basilia Almeida | Preop examination | | 2015 | Visit | Medicine Clinic at | R, AIRPLANE PILOT [address] [facility] | (Primary Dx); GERD | | | | [facility] 4th Floor [address] [facility] [address] | (gastroesophageal | | | | [address] | [place], [place] | reflux disease); | | | | Mailcode: [facility] | [address] | Depression; | | | | [place] [facility] | [phone] | Irregular heart | | | | and Healing, | | beat; Lower back | | | | Building 1,4th Floor | | pain; Adrenal mass | | | | [place], [place] | | ([facility]) | | | | [address] | | | | | | [phone] | | | +--------+---------+ + + + [...] after surgery. Surgery Check in Locations Admitting [facility], ninth floor [facility] Surgery Check in Time: The Preoperative Medicine [...] it is after office hours, call the [facility] boiler operator at [phone] and ask them to page him or h er. documented in this encounter Progress Notes Simone Monroe - 08/04/2014 3:56 PM PST Venipuncture performed in clinic, blood sample obtained from Left antecubital site Dahlia nguyen signed by Simone Monroe at 08/06/2014 11:32 AM Basilia Ndiaye NP - 08/04/2014 2:19 PM PST PREOPERATIVE [...] procedure. Last seen in [facility] on 03/21/2014 for pre-op evaluation for this surgery, which was scheduled in March, but was delayed for for cardiac consult to evaluate irregular heartbeat. The pt was seen by cardiology on 06/02/2014. He subsequently underwent holter monitor and stress ec ho. It was recommended he start on a beta-gabbi, but was otherwise okay to proceed with kowalski rgery (see Cards note). PMHx: GERD, depression He [...] Surgical History Procedure Date Jaw surgery [address] [facility] Cyst removal-leg 1993 Lower leg Family History Problem Relation Anesthesia Neg Hx Heart Disease Father [place] age 40's History Substance Use Topics Smoking [...] Date RATE 84 03/21/2014 ATRIALRATE 83 03/21/2014 LA 164 03/21/2014 QRS 78 03/21/2014 QT 372 [...] further investigation and manageme nt. A. Acute KS within 7 days: no B. Unstable angina/Recent KS (7- 30 days): no C. Decompensated CHF: [...] no Rate of cardiac , non fatal KS, non fatal cardiac arrest (RCRI) 0 risk [...] to this patient's care. BASILIA ALMEIDA NP [facility] PREOPERATIVE MEDICINE CLINIC AT [facility] 4TH FLOOR [address] [facility] [address] I counseled the patient regarding [...] + | COMMUNICATION TO [facility] | Procedures | Routin | [...] | + +--------+ + + + | LA COLLECTION VENOUS | Routin | 08/04/2014 | [...] 4.0 - 5.7 % | [facility], | | | A1C,POC | | | [...] | [facility] | [address] [facility] | [place] [address] | | | OF CARE TESTS | [...] [facility] | [address] | [place] [address] | | | SERVICES, | [address] [...] + + | [facility] | [address] [facility] | [place] [address] | | | SERVICES, | [address] [...] | + + + + + | [facility] | [address] | [place] [address] | | | SERVICES, CORE | [address] [...] | + + + + + | [facility] | [address] [facility] [address] | [place] [address] | | | SERVICES, CORE | [address] [...] | | | LABORATORY | | | FAROESE | | | SERVICES, | | | [...] | + + + + + | [facility] | [address] | [place] [address] | | | SERVICES, CORE | [address] [...]
--- OUTSIDE RECORDS SUMMARY | ~2020-04-01 | XMS | Encounter Summary ---
Demographics + + + | Address | [address] | | | [place] [address] | + + + | Home Phone [...] + | Author | [facility] | + + + | Organization | [facility] | + + + | Address | Unknown | + + + | Phone | Unavailable | + + + Support + + + + + | Name | Relationship | Address | Phone | + + + + + | Yennifer Batista | ECON | [address] | | | | | [place] | | | | | [address] | | + + + + + Care Team Providers + +------+ + | Care Concierge Name | Role | Phone | + +------+ + | Ed Landis MD PCP | | + +------+ + Reason for Visit + +--------+ + | Reason | Onset | Comments | | | Date | | + +--------+ + | Referral To | 05/31/ | | | Gastroenterology | 2019 | | + +--------+ + Encounter Details +--------+ + + + + | Date | Type | Department | Care Team | Description | +--------+ + + + + | 05/31/ | Abstract | Digestive Health | Clinic, | Referral To | | 2019 | | Center at [facility] [address] | Gastroenterology | Gastroenterology | | | | [facility] | | | | | | [facility] and | | | | | | [facility], [place] [address] | | | | | | [place], [place] | | | | | | [address] | | | | | | [phone] | | | +--------+ + + + [...]
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
--- OUTSIDE RECORDS SUMMARY | ~2020-04-01 | XMS | Encounter Summary ---
Demographics + + + | Address | [address] | | | [place] [address] | + + + | Home Phone [...] + | Author | [facility] [employer] [facility] | + + + | Organization | [facility] [employer] [facility] | + + + | Address | Unknown | + + + | Phone | Unavailable | + + + Support + + + + + | Name | Relationship | Address | Phone | + + + + + | Yennifer Batista | ECON | [address] | | | | | [place] | | | | | [address] | | + + + + + Care Team Providers + +------+ + | Care Neurophysiologist Name | Role | Phone | + +------+ + | Leidy Grullon MD | PCP | | + +------+ + Reason for Visit + +--------+ + | Reason | Onset | Comments | | | Date | | + +--------+ + | Referral Needed | 03/23/ | Cardiology preop | | | 2013 | | + +--------+ + Encounter Details +--------+ + + + + | Date | Type | Department | Care Team | Description | +--------+ + + + + | 03/23/ | Telephone | Urology at [facility] | Larissa Doe, | Referral Needed | | 2013 | | [address] | Jesus Leiva MD [address] | (Cardiology preop) | | | | Mailcode: CH10U | [facility] | | | | | [facility] | [address] | | | | | and Healing, | [place] [address] | | | | | [facility] | [phone] | | | | | [place], [place] | | | | | | [address] | | | | | | [phone] | | | +--------+ + + + [...] this encounter Miscellaneous Notes Telephone Encounter - Sara Ray RN - 03/31/2014 3:42 PM PDTCall has been placed b y angle to discuss with Dr. Rodriguez.Electronically signed by Sara Ray RN at 06/2014 3:42 PM PDTTelephone Encounter - Natacha Vera FNP - 03/31/2014 1:59 PM PDTPa tient was given print-out of Cardiology appt and Cardiology referral was coordinated while elizabeth curry was in the [facility] clinic. elephone Encounter - Sara Ray RN - 03/31/2014 10:36 AM PDTChart notes efaxe d to the PCP's office. The pt no showed for his 03/23/14 cardiology appt. He states that he did not know that he nee ded to come. I messaged natacha willett LOG YARD MANAGER in [facility] about the cardiology status and next steps. elephone Encounter - Cheri Veronn - 03/23/2014 9:06 AM PDTAmy with cardiology called to say that she neede d to get a referral from Dr. Aiken regarding patient's preop appointment scheduled for 03/23 with Cardiology. Pt's PCP can't send in referral due to not having any notes on patient' s scheduled surgery. docum ented in this encounter Plan of Treatment Not on filedocumented as of this encounter Visit Diagnoses Not on filedocumented in this encounter"
--- OUTSIDE RECORDS SUMMARY | ~2020-04-01 | XMS | Encounter Summary ---
Demographics + + + | Address | [address] | | | [place] [address] | + + + | Home Phone [...] Author + + + | Author | [facility] | + + + | Organization | [facility] | + + + | Address | Unknown | + + + | Phone | Unavailable | + + + Support + + + + + | Name | Relationship | Address | Phone | + + + + + | Yennifer Batista | ECON | [address] | | | | | [place] | | | | | [address] | | + + + + + Care Team Providers + +------+ + | Care Calender Let Off Operator Name | Role | Phone | [...] + + + + | 08/11/ | Hospital | [facility] GI PROCEDURE | Frederic Kohler | | | 2017 | Encounter | [address] | MD Kiesha,MPH [address] | | | | [address] Mailcode: [facility] | [address] [place] | | | | | [facility] [place] | [place] [address] | | | | | Health and Healing, | [phone] | | | | | [place] [address] | | | | | | [place], [place] | | | | | | [address] | | | | | | [phone] | | | +--------+ + + + [...] + + + | Blood Pressure | 93/72 | 08/11/2016 2:45 PM | | | | | PST | | + + + + + | Pulse | 103 | 08/11/2016 2:10 PM | | | | | PST | | + + + + + | Temperature | 36.6 C (97.9 F) | 08/11/2016 1:21 PM | | | | | PST | | + + + + + | Respiratory Rate | 14 | 08/11/2016 2:45 PM | | | | | PST | | + + + + + | Oxygen Saturation | 99% | 08/11/2016 2:45 PM | | | | | PST [...] documented in this encounter Discharge Instructions Instructions Ivet Reinoso RN - [facility] Instructions after EGD (Upper Endoscopy) You may resume your normal diet and [...] hours or on weekends and holiday [facility] Stuffer toll free [phone] ext. [phone] and have the GI doctor information services tech paged. The provider who performed your procedure is: Dr. Frederic Kohler Results of your EGD: - Stricture dilated Follow up Appointments with: Surgery clinic today Your primary care provider or referring provider [...] + documented as of this encounter Procedure Notes Frederic Kohler MD,MP[facility] - 08/11/2016 1:47 PM PSTAssociated Order(s): EGD (ESOPHAGOGASTR ODUODENOSCOPY)Procedure(s): EGD (ESOPHAGOGASTRODUODENOSCOPY)Pre-Procedure Diagnose(s): Esoph ageal stricture PROCEDURE NOTE: 08/11/2016 Subjective: Franck Btaista, presents today for EGD. PARQ held and all quest ions addressed. Objective: Vital Signs: BP 97/78 | Temp 36.6 C (97.9 F) | RR 14 | SpO2 100% NEURO: patient is Patient oriented X3. Mental status clear and intact Mallampati Score: II NECK: Neck supple. No adenopathy PULM: Lungs clear to auscultation bilaterally with good air exchange COR: Regular Rate and Rhythm. ABD: soft, normal active bowel sounds, nontender, no masses, no organomegaly Medications: No current facility-administered medications on file prior to encounter. Current Outpatient Prescriptions on File Prior to Encounter Medication Sig Dispense Refill acetaminophen 325 mg oral tablet Take 1-2 [...] as needed. Indicati ons: Irritable Bowel Syndrome Ferrous Sulfate 300 mg total salt/5 mL (60 mg elementa/5 mL) oral liquid Take 5 mL by m outh two times daily. 300 mL 0 loratadine 10 mg oral tablet Take 10 mg by mouth once daily. multivitamin oral tablet Take 1 tablet by mouth once daily. omeprazole 2 mg/mL oral suspension (compound) Take 10 mL by feeding tube route two time s daily. 600 mL 0 ondansetron 8 mg oral tablet Take 1 tablet by mouth every eight hours as needed for kamini sea/vomiting. 20 tablet 0 oxyCODONE, immediate release, 5 mg oral tablet Take 1 to 2 tablets by feeding tube rout e every six hours as needed for moderate pain. For severe pain and discomfort Take stool softeners (such as miralax) while taking oxycodone 30 tablet 0 polyethylene glycol 17 gram/dose oral powder Mix 17 g in liquid and drink once daily. 1 19 g Allergies: Allergies as of 08/08/2016 - Fully Reviewed 07/31/2016 Allergen Reaction Noted Naproxen Hives 03/21/2014 ASA score: 2 The patient has been NPO prior to the procedure according to the EGD protocol. Please refer to procedure note of 08/11/2016. Frederic Kohler M.D., M[facility]P.[facility] Division of Gastroenterology & Hepatology documented in this encounter Plan of Treatment Not on filedocumented as of this encounter Procedures + +--------+ + + + | Procedure Name | Priori | Date/Time | Associated Diagnosis | Comments | | | ty | | | | + +--------+ + + + | EGD | Routin | 08/11/2016 | | Results for this | | (ESOPHAGOGASTRODUODE | e | 1:47 PM | | procedure are in the | | NOSCOPY) | | PST | | results section. | + +--------+ + + + | EGD | | 08/11/2016 | | Results for this | | | | 12:00 AM | | procedure are in the | | | | PST | | results section. | + +--------+ + + + documented in this encounter Results EGD (ESOPHAGOGASTRODUODENOSCOPY) (08/11/2016 1:47 PM PST) + + + | Narrative | Performed At | + + + | Frederic Kohler MD,MPH 08/11/2016 1:47 PM PROCEDURE NOTE: | | | 08/11/2016 Subjective: JOCELYNE Matson# [id number] | | | presents today for EGD. PARQ held and all questions addressed. | | | Objective: Vital Signs: BP 97/78 | Temp 36.6 C (97.9 F) | RR | | | 14 | SpO2 100% NEURO: patient is Patient oriented X3. Mental | | | status clear and intact Mallampati Score: II NECK: Neck supple. No | | | adenopathy PULM: Lungs clear to auscultation bilaterally with good | | | air exchange COR: Regular Rate and Rhythm. ABD: soft, normal | | | active bowel sounds, nontender, no masses, no organomegaly | | | Medications: No current facility-administered medications on file | | | prior to encounter. Current Outpatient Prescriptions on File | | | Prior to Encounter Medication Sig Dispense Refill | | | acetaminophen 325 mg oral tablet Take 1-2 tablets by mouth every | | | four hours as needed. | | | ascorbic acid, vitamin C, 500 mg oral tablet Take 1 tablet by | | | mouth once daily. | | | buPROPion SR 150 mg oral tablet extended release Take 150 mg by | | | mouth two times daily. | | | dicyclomine 10 mg oral capsule Take 20 mg by mouth four times | | | daily as needed. Indications: Irritable Bowel Syndrome | | | Ferrous Sulfate 300 mg total salt/5 mL (60 mg elementa/5 mL) oral | | | liquid Take 5 mL by mouth two times daily. 300 mL 0 | | | loratadine 10 mg oral tablet Take 10 mg by mouth once daily. | | | multivitamin oral tablet Take 1 tablet by mouth once daily. | | | omeprazole 2 mg/mL oral suspension (compound) Take 10 mL by | | | feeding tube route two times daily. 600 mL 0 | | | ondansetron 8 mg oral tablet Take 1 tablet by mouth every eight | | | hours as needed for nausea/vomiting. 20 tablet 0 | | | oxyCODONE, immediate release, 5 mg oral tablet Take 1 to 2 tablets | | | by feeding tube route every six hours as needed for moderate pain. | | | For severe pain and discomfort Take stool softeners (such as miralax) | | | while taking oxycodone 30 tablet 0 | | | polyethylene glycol 17 gram/dose oral powder Mix 17 g in liquid | | | and drink once daily. 119 g Allergies: Allergies as of | | | 08/08/2016 - Fully Reviewed 07/31/2016 Allergen Reaction Noted | | | Naproxen Hives 03/21/2014 ASA score: 2 The patient has | | | been NPO prior to the procedure according to the EGD protocol. | | | Please refer to procedure note of 08/11/2016. Frederic Kohler, | | | Sonam, M.P.[facility] Division of Gastroenterology & Hepatology | | + + + EGD (08/11/2016 12:00 AM PST) + + + | Narrative | Performed At | + + + | | | + + + documented in this encounter [...] | fentaNYL (SUBLIMAZE) injection | Given | 08/11/19 | 50 mcg | | | | intravenous, INTRAPROCEDURE PRN, | | 17 1:56 | | | | | Starting 08/11/16 at 1356, | | PM PST | | | | | Until Thu08/11/16 at 1356 | | | | | | + +--------+ +--------+------+------+ +---+---+ | | | +---+---+ + +-------+ +--------+---+---+ | fentaNYL (SUBLIMAZE) injection | Given | 08/11/19 | 50 mcg | | | | intravenous, INTRAPROCEDURE PRN, | | 17 1:58 | | | | | Starting Thu08/11/16 at 1358, | | PM PST | | | | | Until Thu08/11/16 at 1358 | | | | | | + +-------+ +--------+---+---+ +---+---+ | | | +---+---+ + +-------+ +--------+---+---+ | fentaNYL (SUBLIMAZE) injection | Given | 08/11/19 | 50 mcg | | | | intravenous, INTRAPROCEDURE PRN, | | 17 2:05 | | | | | Starting Thu08/11/16 at 1405, | | PM PST | | | | | Until Thu08/11/16 at 1405 | | | | | | + +-------+ +--------+---+---+ + +---+ | | | + +---+ | lidocaine viscous (XYLOCAINE | | | VISCOUS) 2 % mucosal solution 15 | | | mL 15 mL, oral, INTRAPROCEDURE | | | PRN, Starting Thu08/11/16 at | | | 1309, Until Thu08/11/16 at 2118, | | | sore oropharynx | | + +---+ | | | + +---+ + +-------+ +------+---+---+ | midazolam (PF) (VERSED) | Given | 08/11/19 | 2 mg | | | | injection INTRAPROCEDURE PRN, | | 17 1:56 | | | | | Starting 08/11/16 at 1356, | | PM PST | | | | | Until Thu08/11/16 at 1356 | | | | | | + +-------+ +------+---+---+ +---+---+ | | | +---+---+ + +-------+ +------+---+---+ | midazolam (PF) (VERSED) | Given | 08/11/19 | 2 mg | | | | injection INTRAPROCEDURE PRN, | | 17 1:58 | | | | | Starting Thu08/11/16 at 1358, | | PM PST | | | | | Until Thu08/11/16 at 1358 | | | | | | + +-------+ +------+---+---+ +---+---+ | | | +---+---+ + +-------+ +------+---+---+ | midazolam (PF) (VERSED) | Given | 08/11/19 | 2 mg | | | | injection INTRAPROCEDURE PRN, | | 17 2:05 | | | | | Starting Thu08/11/16 at 1405, | | PM PST | | | | | Until Thu08/11/16 at 1405 | | | | | | + +-------+ +------+---+---+ +---+---+ | | | +---+---+ + +---------+ + + +---+ | NaCl 0.9 % solution 50 mL/hr, | New Bag | 08/11/19 | 50 mL/hr | 50 mL/hr | | | intravenous, CONTINUOUS, Starting | | 17 1:19 | | | | | 08/11/16 at 1315, Until Mon | | PM PST | | | | | 08/11/16 at 8 | | | | | | + +---------+ + + +---+ + +---+ | | | + +---+ | simethicone (MYLICON) | | | suspension 3.333 mg 3.333 mg | | | (rounded from 3.3333 mg = 1 | | | drop), oral, HSD PRN, Starting | | | 08/11/16 at 1309, Until Mon | | | 08/11/16 at 2118, bloating, gas | | | bubbles | | + +---+ | | | + +---+ documented in this encounter"
--- OUTSIDE RECORDS SUMMARY | ~2020-04-01 | XMS | Encounter Summary ---
Demographics + + + | Address | [address] | | | [place] [address] | + + + | Home Phone [...] + + | Author | [facility] | + + + | Organization | [facility] | + + + | Address | Unknown | + + + | Phone | Unavailable | + + + Support + + + + + | Name | Relationship | Address | Phone | + + + + + | Yennifer Batista | ECON | [address] | | | | | [place] | | | | | [address] | | + + + + + Care Team Providers + +------+ + | Care Livestock Showman Name | Role | Phone | + +------+ + | Ed Landis MD | PCP | | + +------+ + Reason for Visit + +--------+ + | Reason | Onset | Comments | | | Date | | + +--------+ + | Telephone follow-up | 07/01/ | 06/30/18 | | | 2018 | | + [...] [facility] | (06/30/18) | | | | [facility] [address] [facility], | | | | | [address] | [place] [address] | | | | | [place], | [phone] | | | | | [address] [facility], | | | | | | [place] [address] | | | | | | [phone] | | | +--------+ + + + [...] this encounter Miscellaneous Notes Telephone Encounter - Veronica Wagner MA - 07/01/2018 10:15 AM PSTFollow up phone call to patient regarding GI procedure from 06/30/18. Patient states the following: "just a little drowsy" Informed the patient that their referring provider will receive a copy of the procedure results with in the next week. Patient advised to review discharge instructions and to give us a call if they have any que stions or concerns documented in this en counter Plan of Treatment Not on filedocumented as of this encounter Visit Diagnoses Not on filedocumented in this encounter
--- OUTSIDE RECORDS SUMMARY | ~2020-04-01 | XMS | Encounter Summary ---
Demographics + + + | Address | [address] | | | [place] [address] | + + + | Home Phone [...] + + | Author | [facility] | + + + | Organization | [facility] | + + + | Address | Unknown | + + + | Phone | Unavailable | + + + Support + + + + + | Name | Relationship | Address | Phone | + + + + + | Yennifer Batista | ECON | [address] | | | | | [place] | | | | | [address] | | + + + + + Care Team Providers + +------+ + | Care Protection Officer Name | Role | Phone | [...] Pharmacy | | | | | | [address] | | | | | | [place], [place] | | | | | | [address] | | | | | | [phone] | | | +--------+ + + + [...]
--- OUTSIDE RECORDS SUMMARY | ~2020-04-01 | XMS | Encounter Summary ---
Demographics + + + | Address | [address] | | | [place] [address] | + + + | Home Phone [...] Author | [facility] [employer] [facility] | + + + | Organization | [facility] [employer] [facility] | + + + | Address | Unknown | + + + | Phone | Unavailable | + + + Support + + + + + | Name | Relationship | Address | Phone | + + + + + | Yennifer Batista | ECON | [address] | | | | | [place] | | | | | [address] | | + + + + + Care Team Providers + +------+ + | Care Doctor Of Chiropractic Name | Role | Phone | + [...] Pharmacy | | | | | | [address] | | | | | | [place], [place] | | | | | | [address] | | | | | | [phone] | | | +--------+ + + + [...]
--- OUTSIDE RECORDS SUMMARY | ~2020-04-01 | XMS | Encounter Summary ---
Demographics + + + | Address | [address] | | | [place] [address] | + + + | Home Phone [...] + + + | Author | [facility] | + + + | Organization | [facility] | + + + | Address | Unknown | + + + | Phone | Unavailable | + + + Support + + + + + | Name | Relationship | Address | Phone | + + + + + | Yennifer Batista | ECON | [address] | | | | | [place] | | | | | [address] | | + + + + + Care Team Providers + +------+ + | Care Uniformer Name | Role | Phone | + +------+ + | Leidy Grullon MD | PCP | | + +------+ + Encounter Details +--------+ + + + + | Date | Type | Department | Care Team | Description | +--------+ + + + + | 03/21/ | Abstract | Cardiology | Adriana Holly | | | 2013 | | [facility]ive at [facility] | RASHI Restrepo [address] | | | | | [address] | [address] [place], | | | | | [facility] | [place] [address] | | | | | and [place], | [phone] | | | | | [address] | | | | | | [place], [place] | | | | | | [address] | | | | | | [phone] | | | +--------+ + + + [...]
--- OUTSIDE RECORDS SUMMARY | ~2020-04-01 | XMS | Encounter Summary ---
Demographics + + + | Address | [address] | | | [place] [address] | + + + | Home Phone [...] + | Author | [facility] | + + + | Organization | [facility] [facility] | + + + | Address | Unknown | + + + | Phone | Unavailable | + + + Support + + + + + | Name | Relationship | Address | Phone | + + + + + | Yennifer Segovia | ECON | [address] | | | | | [place] | | | | | [address] | | + + + + + Care Team Providers + +------+ + | Care Pharmacy Technician Trainee Name | Role | Phone | + [...] LEFT | | 2014 | | [address] | [address] [place] [address] | ADRENALECTOMY | | | | [facility] | [place] [address] | | | | | Hospital Admitting | [phone] | | | | | Desk Located on the | | | | | | 9th floor | | | | | | [place], [place] | | | | | | [address] | | | +--------+---------+ + + + [...] can cause constipation, so you may take mpau-xai-svqyfjx stool softeners (Senok ot-S, Miralax, Colace) following [...] Physician: Theresa Beyer MD Patient: COREEN SEGOVIA [id number] 24H events/Subjective: МАРИНА overnight. Emesis x1 yesterday [...] is Theresa Beyer MD. INOCENCIA PATTERSON MD [facility] 4A [address] [place] [address] Zay Sherman MD - 08/20/2014 4:54 AM PST Urology Progress Note Hospital Day: 3 Author: ZAY HERNANDEZ MD Attending Physician: Theresa Beyer MD Patient: COREEN SEGOVIA [id number] 24H events/Subjective: No acute events overnight. Pain [...] Resident - R5 Department of Urology Pager #[phone] Zay Sherman MD - 08/19/2014 7:49 AM PST Urology Progress Note Hospital Day: 2 Author: INOCENCIA PATTERSON MD Attending Physician: Theresa Beyer MD Patient: COREEN SEGOVIA [id number] 24H events/Subjective: МАРИНА overnight. Pain is adequately [...] Caitlin Falk NP Adult Pain Service Pager [phone] Team Pager [phone] Caitlin Jiménez NP - 08/18/2014 8:02 AM [...] and summary of old medical records (source: [employer]), as summarized in the body of the note. CAITLIN FALK NP BILLING INFORMATION [facility] DEPARTMENT: [id number] Place of Service:- Inpatient Date of Service: 08/18/2014 CSN: [id number] Suggested Modifier: None Suggested CPT: 86364 - Daily mgmt epidural/subarachnoid drug administration Prolonged service: n/a Counseling and Coordination: n/a Inocencia Chappell MD - 08/18/2014 6:46 AM PST Urology Progress Note Hospital Day: 1 Author: INOCENCIA PATTERSON MD Attending Physician: Theresa Beyer MD Patient: COREEN SEGOVIA [id number] 24H events/Subjective: Tachycardic overnight asymptomatic otherwise >> [...] is Theresa Beyer MD. INOCENCIA PATTERSON MD [facility] 4A [address]/[facility] [place] [address] Zay Sherman MD - 08/17/2014 10:44 AM PST [facility] PRE-OPERATIVE HISTORY & PHYSICAL EXAM CHIEF [...] Procedure Laterality Date Jaw surgery 1986 [facility] Cyst removal-leg Right 1993 Lower leg [...] Resident - R5 Department of Urology Pager #[phone] documented in this encounter H&P Notes Other, [...] entire procedure. Zay Hernandez MD Resident - R5 Department of Urology Pager #[phone] documented in this en counter Miscellaneous Notes Scan - Other, Faculty - 10/12/2014 8:11 PM PDTElectronically signed by Faculty Other at 8:11 PM PDTScan - Other, Faculty - 08/30/2014 9:47 PM PST can - Other, Faculty - 08/28/2014 7:13 AM PSTElec tronically signed by Faculty Other at 08/28/2014 7:13 AM PSTScan - Other, Faculty - 015 12:04 AM PST can [...] Teaching: Discharge Plan: DC today andoff - Avitia, Kari bajwa RN - 08/21/2014 7:15 PM PSTNursing Handoff [...] Teaching: Discharge Plan: DC tomorrow andoff - Ladonna Handy RN - 08/20/2014 5:56 PM PSTNursing Handoff [...] Procedures: Teaching: Discharge Plan TBA andoff - Avitia, Ma garett, RN - 08/19/2014 6:47 PM PSTNursing Handoff [...] bed, restin g, last pain meds given 2329. Call light in reach. Patient is at [...] are aware of hi s VS today !/30 --has ambulated in the halls 3 times today. orders to follow up on: Last pain assessment/reassessment: Psych/social issues: pleasant, a little anxious about HR Last patient visit (i.e. Falls/Activity/Comfort/Environment/Toileting/Skin): due for his ne xt pain meds at 1930 Anticipated or pending procedures: Marisa - Sreekanth Hamm RN - 08/18/2014 4:07 [...] kinney and have Pt OOB for walks tovalente ay. Pablito Butler RN - 08/17/2014 11:05 PM PSTNursing Handoff Report Primary focus of stay: RADICAL NEPHRECTOMY - OPEN LEFT ADRENALECTOMY Pertinent physical findings: Abdominal dressing with small amount of shadowing on left, jose ramon an on right, Epidural running, dressing CDI, fairly effective, currently at 12/3/15, can go up to 14 if needed, [...] Home/DME Provider: none Home Health/Infusion Agency: Insurance/Funding: DEVELOPMENT AND PLANNING ENGINEER MEDICAID - [place]ELOP[place]ING [place] P* Assessment:Coreen Segovia is a 53 y.o. 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 Due to progressive symptoms, he was indicated for surgery. Anticipated Discharge Needs: Anticipated Discharge Disposition: home Assessment done by: BRIGID BUTLER RN CMSRN Evening Psych Specialist [address] [place] [address] [email or web address] Pager [phone] andoff - Della Cifuentes RN - 08/17/2014 [...] Additional pain medication information: Functional Epidural: Yes SILVER RECOVERY OPERATOR: N/A Respiratory: RR: 10, O2 Sat: 99 [...] kinney Contact Name: Chester (brother) Contact Number: [phone] (cell) Family contacted: Yes Comment:off campus, phone numbers are in [employer] Belongings:with pt . documented in t his [...] | + + + + + | [facility] | [address] | [place] [address] | | | SERVICES, CORE | [address] | | | + + + + + PHOSPHORUS, PLASMA (08/22/2014 5:50 AM PST) + +-------+ + + + | Component | Value | Ref Range | Performed | Pathologist | | | | | At | Signature | + +-------+ + + + | PHOSPHORUS, | 3.1 | 2.4 - 4.7 mg/dL | [facility] | | | PLASMA | | | [...] | + + + + + | [facility] | [address] | [place] [address] | | | SERVICES, CORE | P[address] [...] [facility] | [address] | [place] [address] | | | SERVICES, CORE | PARK [...] | | | LABORATORY | | | B[facility]RAINI | | | SERVICES, | | | [...] | + + + + + | [facility] | [address] | [place] [address] | | | CAM WALLS | [address] [...] | + + + + + | [facility] | [address] | [place] [address] | | | SERVICES, CORE | PARK [...] [facility] | [address] | [place] [address] | | | SERVICES, CORE | PARK [...] [facility] | [address] | [place] [address] | | | SERVICES, CORE | PARK [...] | | | LABORATORY | | | BAHRAINI | | | SERVICES, | | | [...] the MDRD equation recommended by the | [facility] | | National Kidney Disease Education Program. [...] | + + + + + | [facility] | [address] | [place] [address] | | | CAM WALLS | [address]EN [...] | + + + + + | [facility] | [address] | [place] [address] | | | SERVICES, CORE | [address] [...] + + | [facility] | [address] | [place] [address] | | | SERVICES, CORE | [address] | | | + + + + + MAGNESIUM, PLASMA (08/20/2014 6:42 AM PST) + +---------+ + + + | Component | Value | Ref Range | Performed | Pathologist | | | | | At | Signature | + +---------+ + + + | MAGNESIUM,P | 1.6 (L) | 1.8 - 2.5 mg/dL | [facility] | | | LASMA | | | [...] [facility] | [address] | [place] [address] | | | SERVICES, CORE | PARK [...] | | | LABORATORY | | | BAHRAINI | | | SERVICES, | | | [...] the MDRD equation recommended by the | [facility] | | National Kidney Disease Education Program. [...] [facility] | [address] | [place] [address] | | | SERVICES, CORE | PARK [...] [facility] | [address] | [place] [address] | | | CAM WALLS | [address]LLEN [...] | | | LABORATORY | | | BAHRAINI | | | SERVICES, | | | [...] | + + + + + | [facility] | [address] | [place] [address] | | | SERVICES, CORE | [address] [...] [facility] | [address] | [place] [address] | | | SERVICES, CORE | PARK [...] [facility] | [address] | [place] [address] | | | SERVICES, CORE | PARK [...] [facility] | [address] | [place] [address] | | | SERVICES, CORE | PARK [...] | + + + + + | [facility] | [address] | [place] [address] | | | SERVICES, CORE | [address] | | | + + + + + MAGNESIUM, PLASMA (08/18/2014 5:31 AM PST) + +---------+ + + + | Component | Value | Ref Range | Performed | Pathologist | | | | | At | Signature | + +---------+ + + + | MAGNESIUM,P | 1.6 (L) | 1.8 - 2.5 mg/dL | [facility] [...] | + + + + + | [facility] | [address] | [place] [address] | | | SERVICES, CORE | [address] [...] | | | LABORATORY | | | BAHRAINI | | | SERVICES, | | | [...] the MDRD equation recommended by the | [facility] | | National Kidney Disease Education Program. [...] [facility] | [address] | [place] [address] | | | SERVICES, CORE | PARK [...] | + + + + + | [facility] | [address] | [place] [address] | | | SERVICES, CORE | [address] | | | + + + + + MAGNESIUM, PLASMA (08/17/2014 11:00 PM PST) + +---------+ + + + | Component | Value | Ref Range | Performed | Pathologist | | | | | At | Signature | + +---------+ + + + | MAGNESIUM,P | 1.4 (L) | 1.8 - 2.5 mg/dL | [facility] [...] [facility] | [address] | [place] [address] | | | SERVICES, CAM | [address] [...] | | | LABORATORY | | | BAHRAINI | | | SERVICES, | | | [...] | + + + + + | [facility] | [address] | [place] [address] | | | SERVICES, CAM | [address] [...] SERVICES, | | | | | | CAM | | + +-------+ + + + + + | Specimen | + + | Blood - Blood | + + + + + + + | Performing | Address | City/State/Zipcode | Phone Number | | Organization | | | | + + + + + | [facility] | [address] | [place] [address] | | | SERVICES, CORE | PARK [...] | + + + | | [facility] | | | CARDIOLOGY | + + + + + | Procedure Note | + + | Miguel Bee - 08/18/2014 2:24 PM PST | + + + + + + + | Performing | Address | City/State/Zipcode | Phone Number | | Organization | | | | + + + + + | [facility] | [address] | [place], [place] | | | CARDIOLOGY | [address] | [address] | | + + + + + [...] GONZALEZ | [address] | [place], [place] | | | SREE POINT OF CARE | [address] | [address] | | | TESTS | | | [...] MARQUAM | [address] | [place], [place] | | | ARUN BALBUENA OF CARE | [address] | [address] | | | TESTS | | | [...] EVETTE GONZALE[facility] | [address] | [place], [place] | | | ARUN [place] OF CARE | [facility] | [address] | | | TESTS | | | [...] GONZALEZ | [address] | [place], [place] | | | SREE POINT OF CARE | [address] | [address] | | | TESTS | | | | + + + + + HARDEEP ALEJANDRO (08/17/2014 11:56 AM PST) + +---------+ + + + | Component | Value | Ref Range | Performed | Pathologist | | | | | At | Signature | + +---------+ + + + | [facility] | 110 (H) | 97 - 108 [...] CARLOS | [address] | [place], [place] | | | ARUN BAL[place] OF RICKIE | [address] | [address] | | | TESTS | | | [...] MARQUAM | [address] | [place], [place] | | | [facility] OF [facility] | [facility] | [address] | | | TESTS | | | [...] - CARLOS | [address] | [place], [place] | | | ARUN BAL[place] OF CARE | [address] | [address] | | | TESTS | | | [...] CARLOS | [address] | [place], [place] | | | ARUN BAL[place] OF CARE | [address] | [address] | | | TESTS | | | [...] [place] | | | | | | M.D./Pathologist [...] Index:A1-3, | | | | | | telemarketing sales representative adrenal | | | | | | to massA4-6, | | | | | | telemarketing sales representative | | | | | | [...] + + + + | [facility] | [address] | [place] [address] | | | PATHOLOGY | [address] [...]
--- OUTSIDE RECORDS SUMMARY | ~2020-04-01 | XMS | Encounter Summary ---
Demographics + + + | Address | [address] | | | [place] [address] | + + + | Home Phone [...] Author | [facility] | + + + | Organization | [facility] [employer] [facility] | + + + | Address | Unknown | + + + | Phone | Unavailable | + + + Support + + + + + | Name | Relationship | Address | Phone | + + + + + | Yennifer Batista | ECON | [address] | | | | | [place] | | | | | [address] | | + + + + + Care Team Providers + +------+ + | Care Real Estate Valuer Name | Role | Phone | + +------+ + | Yasmeen Landis MD | PCP | | + +------+ + Encounter Details +--------+ + + + + | Date | Type | Department | Care Team | Description | +--------+ + + + + | 09/12/ | Inside | [facility] | Frederic Kohler | | | 2017 | Referral | [facility] [address] Parul Pop MD,MPH [address] | | | | Order | [address] [place] for | [address] | | | | | Health and Healing, | [place] [address] | | | | | [facility] 2 | [phone] | | | | | [facility] [place] | | | | | | [address] | | | | | | [phone] | | | +--------+ + + + [...] -------+ | MRN: | [facility] | | [id number] Date: 09/17/2016Patient Name: Order #: [id number] | ENDOSC OPY | | of : 1960CSN: [id number]: [facility] 2Procedure: | | | Upper GI [...] The Olympus [id number] Gastroscope | | | #[id number] was introduced through the | | | [...]
--- OUTSIDE RECORDS SUMMARY | ~2020-04-01 | XMS | Encounter Summary ---
Demographics + + + | Address | [address] | | | [place] [address] | + + + | Home Phone [...] + | Author | [facility] | + + + | Organization | [facility] [employer] [facility] | + + + | Address | Unknown | + + + | Phone | Unavailable | + + + Support + + + + + | Name | Relationship | Address | Phone | + + + + + | Yennifer Batista | ECON | [address] | | | | | [place] | | | | | [address] | | + + + + + Care Team Providers + +------+ + | Care Circus Supervisor Name | Role | Phone | + +------+ + | Sujatha Sullivan | PCP | | | EQUIPMENT ENGINEERING TECHNICIAN | | | + +------+ + Reason [...] | | | | | Arrhythmia | [facility] [place] | [place] | | | | | [place] (dyspnea | [address] | Building, 2nd | | | | | on | Phone: | floor | | | | | exertion) | [phone] | [place], [place] | | | | | Procedures | Fax: | [address] | | | | | STRESS | [phone] | Phone: | | | | | ECHOCARDIOGR | | [phone] | | | | | AM, CONVERT [...] | | | | | | at [facility] [address] | | | | | | [address] [facility] | | | | | | Health and Healing, | | | | | | [address] | | | | | | [place], [place] | | | | | | [address] | | | | | | [phone] | | | +--------+ + + + [...] were addressed. documented in this enc ounter Miscellaneous Notes Kizzy - Miguel Bee - 06/13/2014 10:34 PM PSTElectronically signed by Miguel Bee at 10:34 PM PSTdocumented in this encounter Plan of [...] | | | | | 1453, Until [facility] 06/08/14 at 0620, | | | | | | | image acquisition | | | | | | + +---------+ +--------+------+------+ +---+---+ | | | +---+---+ documented in this encounter"
--- OUTSIDE RECORDS SUMMARY | ~2020-04-01 | XMS | Encounter Summary ---
Demographics + + + | Address | [address] | | | [place] [address] | + + + | Home Phone [...] + | Author | [facility] [facility] | + + + | Organization | [facility] [facility] | + + + | Address | Unknown | + + + | Phone | Unavailable | + + + Support + + + + + | Name | Relationship | Address | Phone | + + + + + | Yennifer Batista | ECON | [address] | | | | | [place] | | | | | [address] | | + + + + + Care Team Providers + +------+ + | Care Art Gallery Director Name | Role | Phone | + [...] | Event | Procedural Unit at | [facility] [place] | | | | | [address] | [address] | | | | | [address] | | | | | | [place], | | | | | | 4th floor [place], | | | | | | [place] [address] | | | | | | [phone] | | | +--------+ + + + [...] encounter Miscellaneous Notes PMC/ANE PreOp Note - Abby Nguyễn RN - 04/26/2018 2:25 PM PDTROS: HPI: Prior Anesthetic Problems: No Pulmonary: no shortness of breath no cough no stridor no wheezing no Recent Respiratory Infectio n Pt. Has no asthma no COPD No dx of sleep apnea Cardiovascular: Functional Capacity: Low - cyanosis, palpitations and syncope no chest pain no CHF no hypertension no CAD Sx no valvular problems/murmurs no arrhythmia no Cardiac assist devices no pacemaker/ICD GI/Hepatic: Nausea intermittently patient reports nauseated around 80% of time no GI Bleed OTHER GI abdominal pain, nausea, unintentional weight loss and vomitingGERD Control: poorly controlle d no liver disease no hepatitis Renal: S/p adrenalectomy in 2013 no renal failure no electrolyte abnormalities no dialysis Endo: no Diabetes: no Endocrine Other no Hx Corticosteroid Use Neuro/Psych: No Head Conditions No Spine Conditions No Neuromuscular Conditions Psych Disorder depress ion pain (Pain located behind umbilicus) Current pain score: 2 Musculoskeletal: no arthritis No Muscular Disorders Heme/Onc: Pt. has: no active bleeding no bleeding disorder No clotting disorders No hemoglobin d isorders no malignancy Infectious Disease: no MRSA no VRE Skin: no open wounds no skin conditions AutoImmune Disorders: No autoimmune disorders 57 y.o. M scheduled for: COLONOSCOPY; EGD Location: [facility] at [address] Provider: Naty Capone Proc Attending on 05/10/2018. Past medical hx is significant for dysphagia, abdominal pain after eating, GERD, esophageal stricture and depression. Weight_105_lbs. Height__5__ Ft.____Inches BMI __18.02_ Most current H&P reviewed, located under EPIC Notes/Trans tab, Progress Note by Dr. Dar woodall dated 02/17/2018. Patient interview complete and pertinent updates documented under patient history. Patient received pre-op instructions per AVS and verbalized good understanding. Phone appoi ntment completed as scheduled. Transportation: family documented in this enco unter Plan of Treatment Not on filedocumented as of this encounter Visit Diagnoses Not on filedocumented in this encounter"
--- OUTSIDE RECORDS SUMMARY | ~2020-04-01 | XMS | Encounter Summary ---
Demographics + + + | Address | [address] | | | [place] [address] | + + + | Home Phone [...] Author + + + | Author | [facility] [employer] [facility] | + + + | Organization | [facility] [employer] [facility] | + + + | Address | Unknown | + + + | Phone | Unavailable | + + + Support + + + + + | Name | Relationship | Address | Phone | + + + + + | Yennifer Batista | ECON | [address] | | | | | [place] | | | | | [address] | | + + + + + Care Team Providers + +------+ + | Care Supervisor Component Assembler Name | Role | Phone | + +------+ + | Ed Landis MD PCP | | + +------+ + Reason for Visit + +--------+ + | Reason | Onset | Comments | | | Date | | + +--------+ + | Pre-operative | 04/26/ | | | evaluation | 2018 | [...] [id number] | | | | | | [facility] | | | | | | [address] [place], [place] | | | | | | [address] | | | | | | [phone] | | | +--------+ + + + [...] of this encounter Patient Instructions Patient Instructions Gopi Abby, RN - 04/26/2018 2:38 PM PDTFormatting of [...] perfume, lotions or powder. Remove any nail beninese from at least one fingernail. Do not [...] Time: Someone from your surgeon's office or [facility] will provide you with information regarding [...] it is after office hours, call the [facility] invoice machine operator at [phone] and ask them to page your doc tor. documented in this encounter Miscellaneous Notes Telephone Encounter - Abby Nguyễn RN - 04/26/2018 2:48 PM PDTPhone appointment complete d as scheduled. Documentation to be found in the Notes and Trans Encounter tab in Epic. Elec tronically signed by Kala Valles MD at 04/26/2018 3:07 PM PDTdocumented in this enc ounter Plan of Treatment Not on filedocumented as of this encounter Visit Diagnoses Not on filedocumented in this encounter"
--- OUTSIDE RECORDS SUMMARY | ~2020-04-01 | XMS | Encounter Summary ---
Demographics + + + | Address | [address] | | | [place] [address] | + + + | Home Phone [...] | Author | [facility] [employer] [facility] | + + + | Organization | [facility] [employer] [facility] | + + + | Address | Unknown | + + + | Phone | Unavailable | + + + Support + + + + + | Name | Relationship | Address | Phone | + + + + + | Yennifer Batista | ECON | [address] | | | | | [place] | | | | | [address] | | + + + + + Care Team Providers + +------+ + | Care Cement Loader Name | Role | Phone | + [...] + + | 02/17/ | Hospital | [facility] GI PROCEDURE | aDr Drake MD | | | 2018 | Encounter | [address] | [address] | | | | | Ave Mailcode: [facility] | [place], [place] | | | | | [facility] | [address] | | | | | Health and Healing, | [phone] | | | | | [place] [address] | | | | | | [place], [place] | | | | | | [address] | | | | | | [phone] | | | +--------+ + + + [...] Discharge Instructions Instructions Oliver Nguyễn RN - 02/17/2018[place] [facility] Instructions after EGD (Upper Endos copy) [...] hours or on weekends and holiday Hospital Cat Scanner Operator toll free [phone] and have the GI doctor environmental sustainability manager paged. The provider who performed your procedure [...] from jaja madden. PRE PROCEDURE NOTE: MR# [id number] Subjective: Franck Batista is a 57 y.o. [...] + | MRN: | [facility] | | [id number] Date: 02/17/2018Patient Name: Franck Mares #: | ENDOSCOPY | | [id number] of : 1960CSN: [id number] Type: | | | AmbulatoryRoom: [facility] 1Procedure: Upper GI | | | endoscopyIndications: DysphagiaProviders: | | | DAR DRAKE MD (Doctor), OLIVER NGUYỄN, RN (Nurse), | | | TYE GLYNN (Educational Audiologist), SANDRA MORALES, Educational Audiologist | | | (Educational Audiologist)Referring MD: | | | DAKSHA ALARCON MDRequesting [...] | | | The Olympus GIF-[id number] Gastroscope #[id number] was | | | introduced through the [...]
--- OUTSIDE RECORDS SUMMARY | ~2020-04-01 | XMS | Encounter Summary ---
Demographics + + + | Address | [address] | | | [place] [address] | + + + | Home Phone [...] [facility] [employer] [facility] | + + + | Organization | Former[facility] [employer] [facility] | + + + | Address | Unknown | + + + | Phone | Unavailable | + + + Support + + + + + | Name | Relationship | Address | Phone | + + + + + | Yennifer Batista | ECON | [address] | | | | | [place] | | | | | [phone] | | + + + + + Care Team Providers + +------+ + | Care Woods Rider Name | Role | Phone | + +------+ + | Ed Landis MD | PCP | | + +------+ + Encounter Details +--------+ + + + + | Date | Type | Department | Care Team | Description | +--------+ + + + + | 07/01/ | Inside | [facility] | Damaris Woods MD | | | 2018 | Referral | [facility] [address] | [address] | | | | Order | [facility] for | [address], | | | | | [facility] and He[facility], | [place] [address] | | | | | [address] | [phone] | | | | | [place], [place] | | | | | | [address] | | | | | | [phone] | | | +--------+ + + + [...]
--- OUTSIDE RECORDS SUMMARY | ~2020-04-01 | XMS | Encounter Summary ---
Demographics + + + | Address | [address] | | | [place] [address] | + + + | Home Phone [...] + + | Author | [facility] [employer] [facility] | + + + | Organization | [facility] [employer] [facility] | + + + | Address | Unknown | + + + | Phone | Unavailable | + + + Support + + + + + | Name | Relationship | Address | Phone | + + + + + | Yennifer Batista | ECON | [address] | | | | | [place] | | | | | [address] | | + + + + + Care Team Providers + +------+ + | Care Maternity Floor Supervisor Name | Role | Phone | [...] Pharmacy | | | | | | [address] | | | | | | [place] | | | | | | [address] | | | | | | [phone] | | | +--------+ + + + [...]
--- OUTSIDE RECORDS SUMMARY | ~2020-04-01 | XMS | Encounter Summary ---
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 (G-Code) Score (in points) % of Functional Impairment, Limitation, or Restrict ion CN 6 100% impaired, limited, restricted CM 7-9 At least 80%, but less than 100% impaired, limited, or restricted CL 10-14 At least 60%, but less than 80% impaired, limited, or restricted CK 15-19 At least 40%, but less than 60% impaired, limited, or restricted CJ 20-22 At least 20%, but less than 40% impaired, limited, or restricted CI 23 At least 1%, but less than 20% impaired, limited, or restricted CH 24 0% impaired, limited, or restricted Treatment provided this date: physical therapy initial evaluation, therapeutic exercises Ended session: Patient in bed, call light within reach, handoff to nurse Eisenberg following nicolás luation ASSESSMENT: Coreen Batista presents to [facility] with 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 Upon evaluation today, he demonstrates functional lower extremity range of motion and strength. However, he presents with balance impairments as evidenced by the Tinetti Balance Assessment and demonst rates reduced endurance overall. He would benefit from skilled inpatient physical therapy se rvices to address these impairments and maximize his independence and safety with functional mobility in order to facilitate a safe return home. This patient has good rehabilitation potential to achieve stated goals (see Care Plan for g oals) and requires continued rehabilitation services, given the patient's treatment is at a level of complexity or sophistication requiring the skills of a therapist. RECOMMENDATIONS: Activity: Up to chair and ambulating 3x/day with 1 person assist. Encourage completion of p rescribed exercises standing at sink with supervision. Nursing to re-assess each shift as ne eded. Discharge: Home with assist PRN (ongoing PT services) PLAN: Gait training, balance training, therapeutic exercises, ongoing discharge planning an d durable medical equipment evaluation as appropriate Frequency: 3x/wk Duration: 1 week The above plan of care and goals were developed and reviewed with the patient. Magaly Simms, PT Pager #[phone] Time in: 1201 Time out: 1232 This patient was seen for a total of 31 minutes of direct one-on-one skilled physical thera py which included initial evaluation and 10 minutes of therapeutic exercise. Should this patient discharge from the hospital prior to the next physical therapy treatmen t, this note shall serve as the discharge summary. andoff - Kezia Rivera RN - 07/28/2016 2:32 AM PSTNurs ing Handoff Patient Daily Goal: Coreen would like to find out if he can have some hot tea for today. (07/27/16 0831) [facility] IP NURSE HANDOFF: [facility] events: Transferred to [facility] from [facility] in [place], [place]. 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 Pt reports 90lbs WT loss past 6 months. C/o early satiety, cannot tolerate PO. CT s uggestive of SMA." Pt reported to previous hospital nurse that he had a ground level fall at home on 07/21. 07/24: NGT removed, DHT placed 07/26 DHT advanced in IR past narrowing area 07/27 Rebridled DHT COMFORT/ANXIETY/BEHAVIOR Patient/Family Target: Coreen will verbalize a decrease in his ALCOCER by the end of the shift. Progress to Target: Improving As evidenced by: Coreen was c/o a ALCOCER off and on throughout day shift. His ALCOCER intensified after his bridle needed to be replaced as it was falling out. His ALCOCER was present at the start of shift, but d id not c/o of ALCOCER shortly after. He was observed to be resting comfortably and sleeping betwe en care. NURSING ASSESSMENT & RECOMMENDATIONS FORWARD Nursing Assessment of Patient Stability Risk: Moderately stable Recommendations Forward: Continue to encourage OOB activity. Watch closely that the DHT peguero s not get dislodged or pulled out, as he was taken to IR for placement post obstruction on . He remains NPO at this time until his obstruction can be repaired. TPN will likely be di scontinued 07/28 once his TF goal has been reached. Continue to encourage rest and positive re inforcement. Barriers to discharge: Increased nutritional intake. Tolerate TF. Weakness with mobility. andoff - Pavel, Yair casiano RN - 07/27/2016 5:17 PM PSTNursing Handoff Patient Daily Goal: Coreen would like to find out if he can have some hot tea for today. (07/27/16 0831) [facility] IP NURSE HANDOFF: [facility]: Transferred to [facility] from [facility] in [place], [place]. 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 Pt reports 90lbs WT loss past 6 months. C/o early satiety, cannot tolerate PO. CT s uggestive of SMA." Pt reported to previous hospital nurse that he had a ground level fall at home on 07/21. 07/24: NGT removed, DHT placed 07/26 DHT advanced in IR past narrowing area 07/27 Rebridled DHT COMFORT/ANXIETY/BEHAVIOR Patient/Family Target: Coreen will verbalize a decrease in his ALCOCER by the end of the shift. Progress to Target: No Change As evidenced by: Coreen has been c/o a ALCOCER off and on throughout the shift. His ALCOCER intensified after his br idle needed to be replaced as it was falling out. Coreen has been given Tylenol once which t ook the pain away for a short period of time, however the pain came back. Coreen was stating he takes Claratin daily at home for his allergies. He states he has not gotten any of this medication since being hospitalized with us. This was added to his MAR today, and he was giv en his first dose. Coreen will go from being congested to having a runny nose due to the irr itation of the DHT. RESTORATIVE MEASURES/SELF-MANAGEMENT Patient/Family Target: Coreen will ambulate in the hallway at least once this shift. Progress to Target: Improving As evidenced by: Coreen and I discussed the need to keep up his muscle strength while in the hospital. We talked about ambulating in the hallway at least once this shift. Coreen was watching footbal l most of the shift, however he was able to walk with the unit [employer] once this afternoon. Presley kaufman was able to walk down one side of the triplett, but then stated his legs were feeling weak an d he started to look unsteady on his feet. He was able to make it back to the room, but coul d benefit from OOB activity. NURSING ASSESSMENT & RECOMMENDATIONS FORWARD Nursing Assessment of Patient Stability Risk: Moderately stable Recommendations Forward: Coreen has a fecal occult sample sent today which came back positi ve. MD's notified and he will likely have a GI consult (possible scope) tomorrow. Coreen's T F rate was increased today with no c/o nausea or distention. Continue to encourage OOB activ ity. Watch closely that the DHT does not get dislodged or pulled out, as he was taken to IR for placement post obstruction yesterday. He remains NPO at this time until his obstruction can be repaired. TPN will likely be discontinued tomorrow once his TF goal has been reached. Continue to encourage rest and positive reinforcement. Barriers to discharge: Increased nutritional intake. Tolerate TF. Weakness with mobility. Marisa - Sherry Weiss RN - 07/27/2016 3:29 AM PSTNursing Handoff Patient Daily Goal: Rest and sleep (07/24/162016) [facility] IP NURSE HANDOFF: [facility] events: Coreen is a 56 yo male transferred to [facility] from [facility] in [place], [place]. 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 Pt reports 90lbs WT loss past 6 months. C/o early satiety, cannot tolerate PO. CT s uggestive of SMA. MDs discuss admission at [facility] for nutritional support while pt awaits bed a t [facility] for surgery." NG tube had been putting out black (old blood) output per previous hospital report. Pt reported to previous hospital nurse that he had a ground level fall at home on 07/21. 07/24: NGT removed, DHT placed COMFORT/ANXIETY/BEHAVIOR Patient/Family Target: Coreen will tolerate TF overnight without nausea Progress to Target: Improving As evidenced by: Dicussed TF with Coreen and educated on importance of reporting any increased feelings of abdominal pressure, fullness, or nausea. He verbalized understanding and denied discomfort or nausea overnight, besides mild fullness (stating "it just feels like I ate a meal"). Obse rved to be resting and sleeping in between periods of care provided. NURSING ASSESSMENT & RECOMMENDATIONS FORWARD Nursing Assessment of Patient Stability Risk: Moderately stable Recommendations Forward: DHT with TF running at 20ml/hr. Bridled. Assess for nausea and deyvi eration of TF. PICC SBA, steady on feet. Monitor pain and assess need for pain meds, as Coreen will not always request pain meds whe n needed. Barriers to discharge: Continues to require inpatient care - nutritional status presents ba rrier to further intervention andoff - Nicholas Pierre ra, RN - 07/26/2016 6:41 PM PSTNursing Handoff Patient Daily Goal: Rest and sleep (07/24/162016) [facility] IP NURSE HANDOFF: [facility] events: Coreen is a 56 yo male transferred to [facility] from [facility] in [place], [place]. 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 Pt reports 90lbs WT loss past 6 months. C/o early satiety, cannot tolerate PO. CT s uggestive of SMA. MDs discuss admission at [facility] for nutritional support while pt awaits bed a t [facility] for surgery." NG tube had been putting out black (old blood) output per previous hospital report. Pt reported to previous hospital nurse that he had a ground level fall at home on 07/21. 07/24: NGT removed, DHT placed COMFORT/ANXIETY/BEHAVIOR Patient/Family Target: Coreen will report adequate pain control Progress to Target: Deteriorating As evidenced by: 10 mg oxycodone q6h and APAP q4h is effective. However, patient is having increased pain with new DHT now connected to endpiece/TF's. Please ensure timely offering of pain medicatio ns over night. [employer]OM[employer]ION Patient/Family Target: DHT will be replaced to correct position today and bridled in place so that TF's may be i nitiated Progress to Target: Improving As evidenced by: DHT repositioned per XRAY specials. Bridle done on 10A. TF's to start when nutrition arri ves to unit. Kangaroo pump on order NURSING ASSESSMENT & RECOMMENDATIONS FORWARD Nursing Assessment of Patient Stability Risk: Moderately stable Barriers to discharge: Continues to require inpatient care - nutritional status presents ba rrier to further intervention andoff - Lucretia Weiss RN - 07/26/2016 3:15 AM PSTNursing Handoff Patient Daily Goal: Rest and sleep (07/24/162016) [facility] IP NURSE HANDOFF: [facility] events: Coreen is a 56 yo male transferred to [facility] from [facility] in [place], [place]. 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 Pt reports 90lbs WT loss past 6 months. C/o early satiety, cannot tolerate PO. CT s uggestive of SMA. MDs discuss admission at [facility] for nutritional support while pt awaits bed a t [facility] for surgery." NG tube had been putting out black (old blood) output per previous hospital report. Pt reported to previous hospital nurse that he had a ground level fall at home on 07/21. 07/24: NGT removed, DHT placed COMFORT/ANXIETY/BEHAVIOR Patient/Family Target: Coreen will report pain as tolerable, at or below a 4 out of 10 by end of shift Progress to Target: Improving As evidenced by: Coreen reported some abdominal pain at 4/10 near start of shift. Pain medication helpful at reducing his pain and allowing him to rest comfortably for majority of shift. Observed to be sleeping in between periods of care provided. Denied nausea, and denied pain rest of ray ft. NURSING ASSESSMENT & RECOMMENDATIONS FORWARD Nursing Assessment of Patient Stability Risk: Moderately stable Recommendations Forward: MD's aware that DHT migrated out of correct position following IR procedure yesterday - TF's on hold until today when DHT can again be advanced via IR. Recomm end asking IR to bridle DHT prior to transportation back to unit. Barriers to discharge: Improved nutrition status prior to any further intervention andoff - Nicholas Pierre ra RN - 07/25/2016 6:47 PM PSTNursing Handoff Patient Daily Goal: Rest and sleep (07/24/162016) [facility] IP NURSE HANDOFF: [facility] course events: Coreen is a 56 yo male transferred to [facility] from [facility] in [place], [place]. 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 Pt reports 90lbs WT loss past 6 months. C/o early satiety, cannot tolerate PO. CT s uggestive of SMA. MDs discuss admission at [facility] for nutritional support while pt awaits bed a t [facility] for surgery." NG tube had been putting out black (old blood) output per previous hospital report. Pt reported to previous hospital nurse that he had a ground level fall at home on 07/21. 07/24: NGT removed, DHT placed COMFORT/ANXIETY/BEHAVIOR Patient/Family Target: Coreen will verbalize understanding of obstruction Progress to Target: No Change As evidenced by: I discussed reason for patient's NPO status several times today when he asked if he would be able to eat. Patient still unable to verbalize why he can't eat. Discussed current theor y of disease process, reason for emesis, etc. I recommend continuing to reinforce education. MD's have already been asked to revisit topi c with patient, and plan to show him images of his CT scan NURSING ASSESSMENT & RECOMMENDATIONS FORWARD Nursing Assessment of Patient Stability Risk: Moderately unstable Recommendations Forward: MD's aware that DHT migrated out of correct position following IR procedure - TF's on hold until tomorrow until DHT can again be advanced. Recommend asking IR to bridle DHT prior to transportation back to unit Barriers to discharge: Continues to require inpatient care - nutritional status presents ba rrier to further intervention lan of Care - Nisreen Crawford RD, [facility] - 07/25/2016 9:05 AM PSTProblem: Nutrition Interventions Intervention: Parenteral Nutrition Continue to assist with TPN in this 55 y.o. 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 He is cachectic and team plans nutritional support prior to any non-urgent interve ntion for obstruction. His swallowing was evaluated and deemed acceptable for thin liquids b y EX CHEF. Differential includes malignancy, stricture, dysmotility. Indication for TPN is severe malnutrition with dysphagia and SMA syndrome -Pt is at risk for refeeding syndrome. Will start with hypocaloric TPN and gradually increa se in small increments as lytes deemed stable: 15 to 18 to 21 kcal/kg. -increase TPN to provide 21 kcal/kg, 108 gm Dextrose,1.8 gm Protein/kg, 23 gm Lipids in vol of 1080 ml/day (dosing wt: 43 Kg) -Continue to monitor for refeeding syndrome and aggressively replete K, Mg, Phos as needed. -Rec change labs to Renal set and Mg BID -CBG monitoring q 6 hr and cover with ss insulin as needed; can discontinue CBG's after 3 d ays if no hx of DM & no supplemental insulin required -TPN contains additional 100 mg Thiamine, 1mg Folate, 500 mg vit C, 5mg of Zinc and 40 mcg selenium. -Will assist with electrolyte, fluid, insulin changes prn -May check: thiamine, Vit B12, 25 OH-Vitamin D, fat-soluble vitamins, zinc, copper Nutrition Dx: Pt with altered GI function r/t AEB NPO status and need for parenteral nutrit ion support. Goal of care: TPN will meet protein calorie needs with acceptable lytes & glycemic control. Pt meets the following criteria suggesting: Severe protein-calorie malnutrition Rate of weight loss: 52% in 12 mo Energy intake: <50% energy intake compared to energy requirement for >12 mo Depletion of fat stores: severe Depletion of muscle mass: severe Intervention: Enteral Nutrition Nutrition Consult for TF -Rec once DHT placed initiation of enteral nutrition at a rate of 20 ml/hr. -Once feasible advance as deyvi in 20 ml increments q 6-8 hr to goal. -Rec goal TF using Replete @ 55 ml/hr providing 1320 kcal, 84 gm pro, & 1110 ml useable flu id -Total goal volume per day is 1320 ml -Rec Azalea's Kefir 80 ml TID for Probiotics Rx -Monitor TF deyvi, vol, labs, bowel and fluid status -Eventually rec pt receive nocturnal EN of 95 ml/hr x 14 hr to allow appetite for meals. -Goal of care: Enteral Nutrition will meet protein, calorie, volume, and fluid needs. -Once pt deyvi 30 ml/hr TF, will cut TPN back to 15 kcal/kg. Stop TPN when pt deyvi TF at 45 ml /hr which is 80% goal rate of 55 ml/hr. Comments: Coreen Batista is a 55 y.o. 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 He was transferred from [facility] in [place], [place] for SMA syndrome. He reports one week of gradual onsent abdominal pain followed by nausea and vomiting. Denie s diarrhea and last BM was 3 days ago. He presented to an OSH yesterday where showed marked interval weight loss marked dilation of stomach and duodenum to the level of third and fourt h portions of the duodenum where the SMA crosses. It was read as suggestive of SMA syndrome. The patient reports weight loss of 100 pounds since L adrenalectomy in July. 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 This worsened acutely after his adrenalectomy. He denies odynophag ia. He is a never smoker and prior heavy drinker but denies current drinking. Reports prior (gastric?) ulcer repaired in his teens but denies recent upper endoscopy. 07/23 Visited pt who reports UBW 198 lb a yr ago. Has decreased PO intake due to dysphagia to soups, jona, occasional meatloaf & mashed potatoes depending on ability to swallow that day. Only eats 2 meals per day. Had been drinking [place] Ensure but ran out and too expensive to resume.His strength is poor and mostly sits or lies in bed all day. Focus Physical exami ne severe muscle and fat loss. Pt avoids fish, tomatoes due to rash and lettuce/salads, raw fruits & raw veggies due to dysphagia. Diet: FL with 2L PO Last BM: x 1 on 07/24 Emesis: 100 ml on 07/24 NGT: 1250 ml(removed) TF: pending DHT placement TPN: to provide 21 kcal/kg, 108 gm Dextrose,1.8 gm Protein/kg, 23 gm Lipids in vol of 1080 ml/day (dosing wt: 43 Kg) CBG: none Pert meds: miralax, senna, pepcid Repletions: 40 meq KCL Pert Labs: Na 140, K 4.2, Cl 106, CO2 27, BUN 4, Cr 0.56, Gluc 119, Ca 7.6, Mg 2.4(07/24), Ph os 3.1 Ht: 64" Wt: 43.1 kg BMI: 16.3 IBW: 59 kg UBW: per pt 90 kg=48%UBW Caloric needs:BMI <66=1230-6358 kcal (30-35 kcal/kg) Protein needs: BMI<30=52-86 gm pro(1.2 -2 gm pro/kg) Kal Crawford RD,MS,CNSC #[id number] andoff - Lucretia Smith RN - 07/25/2016 2:47 AM PSTNursing Handoff Patient Daily Goal: Rest and sleep (07/24/162016) [facility] IP NURSE HANDOFF: [place] hospital course events: Coreen is a 56 yo male transferred to [facility] from [facility] in [place], [place]. 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 Pt reports 90lbs WT loss past 6 months. C/o early satiety, cannot tolerate PO. CT s uggestive of SMA. MDs discuss admission at [facility] for nutritional support while pt awaits bed a t [facility] for surgery." NG tube had been putting out black (old blood) output per previous hospital report. Pt reported to previous hospital nurse that he had a ground level fall at home on 07/21. 07/24: NGT removed, DHT placed SAFETY Patient/Family Target: Coreen will tolerate full liquid diet. Progress to Target: Deteriorating As evidenced by: Coreen had tolerated his full liquid diet fairly well during day shift however right at s hift change he reported feeling some heartburn and nausea stating that "my juice made me kamini seas because I've never had it before." Coreen had approx. 100ml of emesis. MD notified yenia rding nausea, heartburn and emesis. Antiemetic given, which was helpful at reducing nausea a nd Coreen did not have another episode of emesis all shift. MD assessed at bedside and diet order changed to NPO with ice chips for comfort. Coreen went to CT scan and was able to tole rate oral medications. Coreen denied nausea rest of shift and stated "I'm resting well." NURSING ASSESSMENT & RECOMMENDATIONS FORWARD Nursing Assessment of Patient Stability Risk: Moderately unstable Recommendations Forward: MONITORING: nausea, pain LINES/DRAINS: PICC, DHT (to be advanced in IR today 07/25 - not bridled at this time due to I R today) WOUNDS: N/A PAIN: 10mg Oxy q6hr ACTIVITY: SBA O2: RA DIET: NPO FOLLOW UP: IR to advance DHT PLANS FOR D/C: TBD, diagnostic eval and nutrition Barriers to discharge: Will need increased nutrition prior to any surgical interventions andoff - Terrance Chambers RN - 07/24/2016 6:49 PM PSTNursing Handoff Patient Daily Goal: Nausea and pain control (07/22/16 0339) [facility] IP NURSE HANDOFF: [facility] course events: Coreen is a 56 yo male transferred to [facility] from [facility] in [place], [place]. 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 Pt reports 90lbs WT loss past 6 months. C/o early satiety, cannot tolerate PO. CT s uggestive of SMA. MDs discuss admission at [facility] for nutritional support while pt awaits bed a t [facility] for surgery." NG tube had been putting out black (old blood) output per previous hospital report. Pt reported to previous hospital nurse that he had a ground level fall at home on 07/21. 07/24: NGT removed, DHT placed SAFETY Patient/Family Target: Coreen will tolerate full liquid diet. Progress to Target: Improving As evidenced by: Coreen tolerated his diet with no nausea or bloating. NURSING ASSESSMENT & RECOMMENDATIONS FORWARD Nursing Assessment of Patient Stability Risk: Moderately stable Recommendations Forward: RECS: Coreen likes apple juice & gatorade MONITORING: GI tolerance of diet. LINES/DRAINS: PICC, DHT WOUNDS: N/A PAIN: 10mg Oxy q6hr ACTIVITY: SBA O2: RA DIET: Full Liquid FOLLOW UP: IR to advance DHT in AM (possibly NPO p MN) PLANS FOR D/C: TBD Barriers to discharge: Will need increased nutrition prior to any surgical interventions lan of Care - Elina Segura MS,CCC-EX CHEF - 07/24/2016 12:23 PM PSTSpeech Language Pathology Dysphagia Staci tment Time in: 1130 Time out: 1200 Pt was seen for a total of 30 minutes of direct one on one skilled Speech Language Therapy which included 30 minutes of dysphagia therapy Review of pt's hospitalization since last visit: No acute events. Patient continues on 10A. Per Dr. Ceuvas, patient now OK for full liquids. S: "Do you think I can have some yogurt?" O: Skilled therapy addressed today: dysphagia treatment. Pt participation was good. Respiratory Status: Stable on RA. Patient re-positioned to fully upright in bed at start of session. Assessed with self admin istered trials of puree solids x4oz, thin liquids x8oz via straw sips. Oral phase characteri zed by adequate labial seal, adequate oral containment. Adequate bolus cohesion, manipulatio n, and A-P propulsion. Complete oral clearance. Pharyngeal phase characterized by timely swa llow initiation, complete hyolaryngeal elevation/excursion to palpation. No cough, throat cl ears, audible pharyngeal pooling, or changes in vocal quality. Education: SEE MULTIDISCIPLINARY EDUCATIONAL RECORD FOR DETAILED PLAN; focus this session to patient includes aspiration precautions. Education Outcome: Patient able to verbalize. Pain: reported in L-shoulder - patient's nurse present in room and aware. A: Patient continues to present with grossly functional oropharyngeal swallow, demonstratin g adequate tolerance of puree solids and thin liquids without clinical signs/symptoms of pen etration/aspiration. Recommend further diet advance per MD discretion. Patient should likely remain on soft diet due to missing dentition (reported baseline diet ~mechanical soft) for optimal swallow safety. Further Speech-Language Pathologist dysphagia treatment not indicate d at this time. Please re-order with any future changes/concerns. Swallowing - LEVEL 6: Swallowing is safe, and the individual eats and drinks independently and may rarely require minimal cueing. The individual usually self-cues when difficulty occu rs. May need to avoid specific food items (e.g., popcorn and nuts), or require additional ti me (due to dysphagia). P: Recommendations: FULL LIQUID diet per MDs OK to ADAT at MD discretion (rec up to mechanical soft d/t missing dentition) Setup assist Upright to 90-degrees for all PO intake D/C PO for increased S/S of penetration/aspiration (increased cough, decreased resp status, increased temp) D/W patient's nurse Nusrat and Dr. Cuevas Speech Language Pathologist sign off Thank you for this consult Please reorder as appropriate Elina Zamudio M.S., CCC-EX CHEF Pager #[phone] andoff - Lyndsay Martinez RN - 07/24/2016 2:07 AM PSTNursing Handoff Patient Daily Goal: Nausea and pain control (07/22/16 0339) [facility] IP NURSE HANDOFF: [place] hospital course events: Coreen is a 56 yo male transferred to [facility] from [facility] in [place], [place]. 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 Pt reports 90lbs WT loss past 6 months. C/o early satiety, cannot tolerate PO. CT s uggestive of SMA. MDs discuss admission at [facility] for nutritional support while pt awaits bed a t [facility] for surgery." NG tube had been putting out black (old blood) output per previous hospital report. Pt reported to previous hospital nurse that he had a ground level fall at home on 07/21. SAFETY Patient/Family Target: Coreen will tolerate PO fluids and demonstrate safe and proper understanding of swallow r ecommendations. Progress to Target: No Change As evidenced by: Coreen tolerated his clear liquid intake and drank fully upright, but still was drinking very rapidly. He did have a good swallow and had no coughing with intake. Encouraged him to take time, and limited amount of fluids provided at a time COMFORT/ANXIETY/BEHAVIOR Patient/Family Target: Implement plan to promote sleep overnight Progress to Target: Improving As evidenced by: We tried to cluster care overnight to promote good sleep. He easily fell asleep between c delicia. NURSING ASSESSMENT & RECOMMENDATIONS FORWARD Nursing Assessment of Patient Stability Risk: Moderately stable Recommendations Forward: Continue to monitor NG tube output, change canister frequently Pain and Nausea management. Maintain PICC and administer TPN Barriers to discharge: Will need increased nutrition prior to any surgical interventions andoff - Concah Stevenson RN - 07/23/2016 7:42 PM PSTNursing Handoff Patient Daily Goal: Nausea and pain control (07/22/16 0339) [facility] IP NURSE HANDOFF: [place] hospital course events: Coreen is a 56 yo male transferred to [facility] from [facility] in [place], [place]. 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 Pt reports 90lbs WT loss past 6 months. C/o early satiety, cannot tolerate PO. CT s uggestive of SMA. MDs discuss admission at [facility] for nutritional support while pt awaits bed a t [facility] for surgery." NG tube had been putting out black (old blood) output per previous hospital report. Pt reported to previous hospital nurse that he had a ground level fall at home on 07/21. SAFETY Patient/Family Target: Coreen will tolerate PO fluids and demonstrate safe and proper understanding of swallow r ecommendations. Progress to Target: No Change As evidenced by: Coreen tolerated his clear liquid intake and drank fully upright, but drank more quickly than was recommended by speech therapy. NURSING ASSESSMENT & RECOMMENDATIONS FORWARD Nursing Assessment of Patient Stability Risk: Moderately stable Recommendations Forward: Continue to monitor NG tube output, change canister frequently Pain and Nausea management. Maintain PICC and administer TPN Barriers to discharge: Will need increased nutrition prior to any surgical interventions lan of Care - Elina Villagran MS,CCC-EX CHEF - 07/23/2016 5:16 PM PSTFormatting of this note might be differen t from the original. 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 Patient resting on 10A. Upper GI w/ KUB completed just prior to this evaluation, results pe nding. Per Dr. Cuevas, patient OK to take clear liquids for purposes of swallow evaluation. Previous Medical History: Past Medical History Diagnosis Date Acute, but ill-defined, cerebrovascular disease Depressive disorder, not elsewhere classified Imaging: Chest X-Ray 07/22 "Clear lungs." Dr. Lopez Orders received for swallow evaluation. PLOF: Per patient eating and drinking has been very difficult - he reports being able to ea t very little due to abdominal distention/discomfort but denied any choking or coughing with intake. Assessment: Pain was denied. Oral Mechanism Examination: Edentulous. Adequate lingual/labial strength/rate/ROM. No obvi ous asymmetries. NGT to suction in place. Respiratory Status & Vocal Quality: Stable on RA. Clear, quiet phonation. Presentations: Ice chips x5, thin liquids x5oz via open cup sips. Oral Phase: Adequate oral containment. Adequate bolus cohesion, manipulation, and A-P trans it. Complete oral clearance. Pharyngeal Phase: Timely swallow initiation, grossly complete hyolaryngeal elevation/excurs ion to palpation. +Reflexive cough x1 following multiple sequential sips of thin liquid. All eviated for cue to slow rate and take single sips. Education: Focus this session to patient includes aspiration precautions. Education Outcome : Patient able to verbalize. The patient has good rehabilitation potential to achieve stated goals (see Care Plan for go als) and requires continued rehabilitation services, given the patient's medical condition i s such that the skills of a therapist are required for monitoring and adjustment of interven tions, specifically dysphagia. Impressions: Patient presents with grossly functional oropharyngeal swallow in setting of a cute illness/generalized weakness. Patient demonstrated adequate tolerance of ice chips and thin liquids without clinical signs/symptoms of penetration/aspiration. Judged safe for a li quid diet from Speech-Language Pathologist standpoint. Swallowing - LEVEL 5: Swallowing is safe with minimal diet restriction and/or occasionally requires minimal cueing to use compensatory strategies. The individual may occasionally self -cue. All nutrition and hydration needs are met by mouth at mealtime. Recommendations: DIET per MD ESQUEDA for thin liquids from oropharyngeal swallow standpoint Upright to 90-degrees for all PO intake Slow rate Small, single sips D/C PO for increased S/S of penetration/aspiration (increased cough, decreased resp status, increased temp) D/W patient's nurse Concha and Dr. Cuevas Bed Alarm engaged at the end of the session. Speech-Language Pathologist will follow-up x3/week for dysphagia Continued therapy at next level of care. Elina Zamudio M.S., CCC-EX CHEF Pager #[phone] lan of [address], [facility] - 07/23/2016 12:30 PM PSTProblem: Nutrition Interventions Intervention: Parenteral Nutrition Nutrition Consult for TPN Consult received to assist with TPN in this 55 y.o. male with recent weight loss of 100 luna nds associated with dysphagia for solids and liquids who presents with 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 He is cachectic and team plans nutritional support prior to any non-urgent intervention for obstruction. His swallowing will be evaluated as well to look for source o f dysphagia. Differential includes malignancy, stricture, dysmotility. Indication for TPN is severe malnutrition with dysphagia and SMA -Pt is at risk for refeeding syndrome. Will start with hypocaloric TPN and gradually increa se as lytes deemed stable. -initial TPN to provide 15 kcal/kg, 66 gm Dextrose,1.5 gm Protein/kg, 16 gm Lipids in vol o f 1080 ml/day (dosing wt: 43 Kg) -Monitor for refeeding syndrome and aggressively replete K, Mg, Phos via IV. -Start TPN only when Phos is >2.0 and Mg level is >1.5 -adjust IVF accordingly once TPN infusing at goal -Gave extra K, Mg, Phos in initial TPN. -CBG monitoring q 6 hr and cover with ss insulin as needed; can discontinue CBG's after 3 d ays if no hx of DM & no supplemental insulin required -TPN contains additional 100 mg Thiamine, 1mg Folate, 500 mg vit C, 5mg of Zinc and 40 mcg selenium. -Will assist with electrolyte, fluid, insulin changes prn -May check: thiamine, Vit B12, 25 OH-Vitamin D, fat-soluble vitamins, zinc, copper Nutrition Dx: Pt with altered GI function r/t AEB NPO status and need for parenteral nutri tion support. Goal of care: TPN will meet protein calorie needs with acceptable lytes & glycemic control. Pt meets the following criteria suggesting: Severe protein-calorie malnutrition Rate of weight loss: 52% 1n 12 mo Energy intake: <50% energy intake compared to energy requirement for >12 mo Depletion of fat stores: severe Depletion of muscle mass: severe Comments: Coreen Batista is a 55 y.o. 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 He was transferred from [facility] in [place], [place] for SMA syndrome. He reports one week of gradual onsent abdominal pain followed by nausea and vomiting. Denie s diarrhea and last BM was 3 days ago. He presented to an OSH yesterday where showed marked interval weight loss marked dilation of stomach and duodenum to the level of third and fourt h portions of the duodenum where the SMA crosses. It was read as suggestive of SMA syndrome. The patient reports weight loss of 100 pounds since L adrenalectomy in July. 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 This worsened acutely after his adrenalectomy. He denies odynopha kye. He is a never smoker and prior heavy drinker but denies current drinking. Reports prior (gastric?) ulcer repaired in his teens but denies recent upper endoscopy. 07/23 Visited pt who reports UBW 198 lb a yr ago. Has decreased PO intake due to dysphagia t o soups, jona, occasional meatloaf & mashed potatoes depending on ability to swallow that day. Only eats 2 meals per day. Had been drinking [place] Ensure but ran out and too expensiv e to resume.His strength is poor and mostly sits or lies in bed all day. Focus Physical exam ine severe muscle and fat loss. Pt avoids fish, tomatoes due to rash and lettuce/salads, raw fruits & raw veggies due to dysphagia. Diet: NPO Last BM: prior to admit NGT: 3200 ml TF: none TPN: to provide 15 kcal/kg, 66 gm Dextrose,1.5 gm Protein/kg, 16 gm Lipids in vol of 1080 m l/day (dosing wt: 43 Kg) CBG: none Pert meds: miralax, senna Repletions: 30mM KPhos, 4 gm Mg, 40 meq KCL Pert Labs: Na 141, K 3.4, Cl 104, CO2 22, BUN 9, Cr 0.65, Gluc 57, Ca 8.7, Mg 2.5, Phos 3.4 Ht: 64" Wt: 43.1 kg BMI: 16.3 IBW: 59 kg UBW: per pt 90 kg=48%UBW Caloric needs:BMI <91=6903-6543 kcal (30-35 kcal/kg) Protein needs: BMI<30=52-86 gm pro(1.2 -2 gm pro/kg) Kal Crawford RD,MS,[facility] #[id number] lan of Care - Mary Lou Henderson CCC-EX CHEF - 07/23/2016 10:58 AM PSTSpeech Language Pathology Orders received, D/W Dr. Cuevas, Patient is currently NPO for an upper GI with Small Bowel Follow, Patient with reported history of dysphagia with solids, once Patient no longer NPO for procedures Speech Language Pathology will initiate bedside swallow evaluation with clear liquids only. Mary Lou Henderson M.S., CCC-EX CHEF #[id number] [facility] andoff - Lyndsay Martinez RN - 07/23/2016 5:57 AM PSTNursing Handoff Patient Daily Goal: Nausea and pain control (07/22/16 0339) [facility] IP NURSE HANDOFF: [place] hospital course events: Coreen is a 56 yo male transferred to [facility] from [facility] in [place], [place]. 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 Pt reports 90lbs WT loss past 6 months. C/o early satiety, cannot tolerate PO. CT s uggestive of SMA. MDs discuss admission at [facility] for nutritional support while pt awaits bed a t [facility] for surgery." NG tube had been putting out black (old blood) output per previous hospital report. Pt reported to previous hospital nurse that he had a ground level fall at home on 07/21. SAFETY Patient/Family Target: Coreen will verbalize importance of calling for help Progress to Target: Improving As evidenced by: Coreen had a fall at home so we went over using the call light. He was steady on his feet with a SBA. He did wait until someone was in the room to stand, but did not call for anythi ng overnight NURSING ASSESSMENT & RECOMMENDATIONS FORWARD Nursing Assessment of Patient Stability Risk: Moderately stable Recommendations Forward: Monitor NG tube output Pain and Nausea management. Possible PICC vs DHT for nurtrition Barriers to discharge: Will need increased nutrition prior to any surgical interventions lan of Care - Tiera Lucas - 07/22/2016 12:45 PM PSTProblem: Case Management Goals Goal: Discharge Needs Met Case Management Initial Assessment Reason for Admission:bowel obstruction , SMA syndrome Admitted From: Home Emergency Contact: Extended Emergency Contact Information Primary Emergency Contact: Yennifer Batista [place] Relation: Mother Past Medical History: Superior Mesenteric Artery Sx, No admission procedures for hospital e ncounter. Lives With: family Living Arrangement: home in [place] Functional Level Prior to Admission: Transportation Available: Equipment Currently used at Home/DME Provider: Home Health/Infusion Agency: Insurance/Funding: @PAYORNAME@, mcaid Assessment: Will follow for dc needs. Assessment done by: [id number] andoff - Radu Peace RN - 07/22/2016 6:25 AM PSTNursing Handoff Patient Daily Goal: Nausea and pain control (07/22/16 0339) [facility] IP NURSE HANDOFF: [place] hospital course events: Coreen is a 56 yo male transferred to [facility] from [facility] in [place], [place]. 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 Pt reports 90lbs WT loss past 6 months. C/o early satiety, cannot tolerate PO. CT s uggestive of SMA. MDs discuss admission at [facility] for nutritional support while pt awaits bed a t [facility] for surgery." (Per [facility] Comm [facility] Note) NG tube had been putting out black (old blood) output per previous hospital report. Pt reported to previous hospital nurse that he had a ground level fall at home on 07/21. COMFORT/ANXIETY/BEHAVIOR Patient/Family Target: Coreen will have his nausea and pain well controlled. Progress to Target: Improving As evidenced by: Coreen was CO of nausea and pain at 5/10 when he arrived on the unit at 0330 this morning , with 4mg IV Zofran and 5mg of oral Oxycodone Coreen reported decreasing nausea and pain at a 3/10. Coreen stated that he was feeling much more comfortable than when he initially arri lynnette on the unit. NURSING ASSESSMENT & RECOMMENDATIONS FORWARD Nursing Assessment of Patient Stability Risk: Moderately stable Recommendations Forward: Look for NG tube placement clearance Monitor NG tube output for signs of bleeding once NG tube is ok'd to use. Pain and Nausea management. Monitor PIV for s/s of infiltration. May need to be replaced today. Barriers to discharge: Possible surgical intervention for superior mesenteric artery syndro me. [facility] Lita Corado - 07/21/2016 7:11 PM PSTPer ref, able to secure [facility] transport for pt. Will not arrive to [facility] until 2300, ETA for pt to arrive to [facility] approx 0400. FYI paged BFM/AOD and n otified 10A. [facility] Jessica Eldridge - 07/21/2016 2:[address] Harsha Mensah, he is now caring for th e pt who is admitted on the panda while he waits for a bed. [facility] Lita Schaffer - 07/21/2016 11:49 AM PST Connected ref with Dr Mary Chirinos ([facility]). Both MDs aware that we are at capacity for adult war d beds. 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 Pt reports 90lbs WT loss past 6 months. C/o early satiety, cannot tolerate PO. CT kowalski ggestive of SMA. MDs discuss admission at [facility] for nutritional support while pt awaits bed at [facility] for surgery. Pt accepted to adult panda when bed becomes available Paged Grp [facility] Lita Walker - 07/21/2016 11:[address] Chirinos ([facility]). Ref advised that we are at capacity for adult panda. 11:4 7 AM PSTdocumented in this encounter Plan of Treatment [...] | | | Erica, | | | [place] | | | C, MD | | [...] | | | Bakis. | | | [place] | | | Erica, | | | [...] | | | Father | | | [place] | | | age | | | [...] | | | whawk | | | [place] | | | | | | Health [...] | | | ECG | | | 9//20 | | | 14 (I | | [...] | | | 06/07/ | | | 2013 - | | | Final | | [...] | | | r | | | (11/19 | | | /2013) | | | [...] 1033 | | | | | | /06/ | | | 17 | | | [...] | | | 2346 | | | /09/ | | | 17 | | | [...] | | | s | | | river driver | | | ior to | | [...] | | + +---------+ + + | [facility] DEPARTMENT OF | | | | [...] | + + + + + | [facility] | [address] | [place] [address] | | | SERVICES, CORE | [address]ANIA [...] | + + + + + | [facility] | [address] | [place] [address] | | | [facility] | [address] | | | + [...] [facility] | [address] | [place] [address] | | | SERVICES, | [address] [...] [facility] | [address] | [place] [address] | | | SERVICES, | [address] [...] + + + + | PRODUCT | [id number] | | [facility] | | | UNIT [...] + + + + | EXPIRATION | [id number] | | [facility] | | | DATE [...] + + + + | BLOOD | [id number] | | [facility] | | | PRODUCT [...] [facility] | [address] | [place] [address] | | | SERVICES, | [address] [...] | + + + + + | [facility] | [address] | [place] [address] | | | SERVICES, CORE | [address] | | | + + + + + MAGNESIUM, PLASMA (07/31/2016 5:20 AM PST) + +-------+ + + + | Component | Value | Ref Range | Performed | Pathologist | | | | | At | Signature | + +-------+ + + + | MAGNESIUM,P | 1.8 | 1.8 - 2.5 mg/dL | [facility] [...] | + + + + + | [facility] | [address] | [place] [address] | | | SERVICES, CORE | [address]AN[address] [...] | | | LABORATORY | | | [facility] | | | SERVICES, | | | [...] | + + + + + | [facility] | [address] | [place] [address] | | | SERVICES, CORE | [address] [...] + + | Performing | Address | City/State/[facility] | Phone Number | | Organization | | | | + +---------+ + + | [facility] DEPARTMENT | | | | | RADIOLOGY | [...] | + + + + + | [facility] | [address] | [place] [address] | | | SERVICES, CORE | SHANIA [...] | | | LABORATORY | | | Z[facility]BIAN | | | SERVICES, | | | [...] | + + + + + | [facility] | [address] | [place] [address] | | | SERVICES, CORE | SHANIA [...] Range: 40-10,000,000 HIV-1 copies/mL These results | [facility] | | are most likely suggestive of [...] + + + | [facility] | [address] | [place] [address] | | | DIAGNOSTIC | [address] [...] [facility] | [address] | [place], [place] | | | SREE POINT OF CARE | [address] | [id number] | | | TESTS | | | [...] [facility] | [address] | [place] [address] | | | [place] | [address] | | | + [...] + + + + + | [facility] | [address] | [place] [address] | | | [place] | | | | + + + [...] | + + + + + | [facility] | [address] | [place] [address] | | | SERVICES, CORE | SHANIA [...] | | | LABORATORY | | | ZAMBIAN | | | SERVICES, | | | [...] [facility] | [address] | [place] [address] | | | SERVICES, CORE | PARK [...] [facility] | [address] | [place] [address] | | | SERVICES, CORE | PARK [...] | + + + + + | [facility] | [address] | [place] [address] | | | SERVICES, CORE | SHANIA [...] GONZALEZ | [address] | [place], [place] | | | [facility] | [address] | [address] | | | TESTS | | | [...] | | | | | | MD Sihvam PhD / | | | | | [...] | | | | cs determined by [facility] | | | | | | [...] Ph.D.PathologistElectron | | | | | | icanickiy Signed 08/01/2016 | | | | | [...] [facility] | [address] | [place] [address] | | | PATHOLOGY | [address] [...] [facility] | [address] | [place], [place] | | | [facility] | [facility] | [address] | | | TESTS | | | [...] [facility] | [address] | [place], [place] | | | [facility] | [facility] | [address] | | | TESTS | | | [...] GONZALEZ | [address] | [place], [place] | | | [facility] | [address] | [address] | | | TESTS | | | [...] [facility] | [address] | [place], [place] | | | [facility] | [facility] | [address] | | | TESTS | | | [...] [facility] | [address] | [place] [address] | | | SERVICES, CORE | PARK [...] | | | LABORATORY | | | ZAMBIAN | | | SERVICES, | | | [...] the MDRD equation recommended by the | [facility] | | National Kidney Disease Education [...] | + + + + + | [facility] | [address] | [place] [address] | | | SERVICES, CORE | SHANIA [...] (H) | 60 - 99 mg/dL | [facility] - | | | GLUCOSE, | [...] GONZALEZ | [address] | [place], [place] | | | [facility] | [facility] | [address] | | | TESTS | | | [...] MAR[facility] | [address] | [place], [place] | | | [facility] [place] | [address] | [address] | | | TESTS | | | [...] + + | [facility] | [address] | [place] [address] | | | SERVICES, CORE | PARK [...] | | | LABORATORY | | | ZAMBIAN | | | SERVICES, | | | [...] the MDRD equation recommended by the | [facility] | | National Kidney Disease Education [...] | + + + + + | [facility] | [address] | [place] [address] | | | CAM WALLS | SHANIA [...] MARQUAM | [address] | [place], [place] | | | [facility] | [facility] | [address] | | | TESTS | | | [...] GONZALEZ | [address] | [place], [place] | | | [facility] | [address] | [address] | | | TESTS | | | [...] | | | POC | | | RAUN BALBUENA | | | | | | [...] MARQUAM | [address] | [place], [place] | | | [facility] | [address] | [address] | | | TESTS | | | [...] an | | | | | | [id number]-[id number] 109 | | | | | | [...] GONZALEZ | [address] | [place], [place] | | | [facility] | [address] | [address] | | | TESTS | | | [...] [facility] | [address] | [place] [address] | | | CAM WALLS | PARK [...] | | | LABORATORY | | | ZAMBIAN | | | SERVICES, | | | [...] | + + + + + | [facility] | [address] | [place] [address] | | | SERVICES, CORE | SHANIA [...] MARQUAM | [address] | [place], [place] | | | [facility] | [address] | [address] | | | TESTS | | | [...] GONZALEZ | [address] | [place], [place] | | | [facility] | [address] | [address] | | | TESTS | | | | + + + + + MAGNESIUM, PLASMA (07/25/2016 3:56 PM PST) + +-------+ + + + | Component | Value | Ref Range | Performed | Pathologist | | | | | At | Signature | + +-------+ + + + | MAGNESIUM,P | 2.5 | 1.8 - 2.5 mg/dL | [facility] | | | [facility]O | | | LABORATORY | | | [...] | + + + + + | [facility] | [address] | [place] [address] | | | SERVICES, CAM | SHANIA [...] | | | LABORATORY | | | ZAMBIAN | | | SERVICES, | | | [...] | + + + + + | [facility] | [address] | [place] [address] | | | SERVICES, CORE | PARK [...] | | | | | performed by . | | | | | | minerva Ventura | | | | | | radiologist. A quality assurance intern | | | | | | film demonstrated a 12 | | | | | | Vietnamese Dobbhoff | | | | | | [...] | | | | a 12 Fr cub-wsjuplnn-ila | | | | | | Doppler [...] | | + +---------+ + + | [facility] | | | | | [...] - CARL[facility] | [address] | [place], [place] | | | [facility]ARE | [facility] | [address] | | | TESTS | | | [...] | + + + + + | [facility] | [address] | [place] [address] | | | SERVICES, CORE | SHANIA [...] | | | LABORATORY | | | ZAMBIAN | | | SERVICES, | | | [...] | + + + + + | [facility] | [address] | [place] [address] | | | SERVICES, CORE | SHANIA [...] GONZALEZ | [address] | [place], [place] | | | [facility] | [address] | [address] | | | TESTS | | | [...] MARQUAM | [address] | [place], [place] | | | [facility] | [address] | [address] | | | TESTS | | | [...] [facility] | [address] | [place] [address] | | | SERVICES, CORE | PARK [...] | | | LABORATORY | | | ZAMBIAN | | | SERVICES, | | | [...] | + + + + + | [facility] | [address] | [place] [address] | | | SERVICES, CAM | SHANIA [...] | | + +---------+ + + | [facility] DEPARTMENT OF | | | | [...] GONZALEZ | [address] | [place], [place] | | | [facility] | [address] | [address] | | | TESTS | | | [...] [facility] | [address] | [place] [address] | | | SERVICES, CORE | SHANIA [...] | | | LABORATORY | | | ZAMBIAN | | | SERVICES, | | | [...] | + + + + + | [facility] | [address] | [place] [address] | | | SERVICES, CORE | SHANIA DEL CID | | | [...] GONZALEZ | [address] | [place], [place] | | | [facility] | [address] | [address] | | | TESTS | | | [...] [facility] | [address] | [place] [address] | | | SERVICES, CORE | PARK [...] [facility] | [address] | [place] [address] | | | SERVICES, CORE | PARK [...] | | | LABORATORY | | | ZAMBIAN | | | SERVICES, | | | [...] the MDRD equation recommended by the | [facility] | | National Kidney Disease Education [...] | + + + + + | [facility] | [address] | [place] [address] | | | CAM WALLS | SHANIA [...] (H) | 60 - 99 mg/dL | [facility] - | | | GLUCOSE, | [...] CARLOS | [address] | [place], [place] | | | [facility] | [address] | [address] | | | TESTS | | | [...] U/mL | [facility] | | | GI (-) | | | LABORATORY | | | OH[facility] | | | SERVICES, | | | | | | CORE | | + + + + + + + + | Specimen | + + | Blood - Blood | | (substance) | + + + + + + + | Performing | Address | City/State/Zipcode | Phone Number | | Organization | | | | + + + + + | [facility] | [address] | [place] [address] | | | SERVICES, CORE | PARK [...] | + + + + + | [facility] | [address] | [place] [address] | | | CAM WALLS | SHANIA [...] 98 | 60 - 99 mg/dL | [facility] - | | | GLUCOSE, | [...] CARLOS | [address] | [place], [place] | | | [facility] | [address] | [address] | | | TESTS | | | [...] | + + + + + | [facility] | [address] | [place] [address] | | | SERVICES, CORE | PARK [...] | | | LABORATORY | | | ZAMBIAN | | | SERVICES, | | | [...] | + + + + + | [facility] | [address] | [place] [address] | | | SERVICES, CORE | SHANIA [...] MARQUAM | [address] | [place], [place] | | | [facility] | [address] | [address] | | | TESTS | | | [...] | | | | | | FINDINGS: Branch Manager KUB: The | | | | | [...] | | + +---------+ + + | [facility] DEPARTMENT OF | | | | | RADIOLOGY | | | | + +---------+ + + X-RAY PORTABLE CHEST 1 VIEW (07/23/2016 3:10 PM PST) + + + + + + | Component | Value | Ref Range | Performed | Pathologist | | | | | At | Signature | + + + + + + | X-RAY | EXAM: OK CHEST 1 VIEW | | | | [...] | | | | | | VANI LOPEZuthor: KI | | | | | | [...] | | BASILIO CLARK Authorized by: MARY CHIRINOS PICC/Georgette | | | Insertion Procedure Note Indications:TPN Procedure location: | | | Unit:[facility] Room: 54 Providers: Attending name: Attending | [...] vein. Catheter lot number: | | | [id number] with a length of 55 cm was [...] [facility] | [address] | [place] [address] | | | SERVICES, CORE | PARK [...] and new reporting units as of | [facility] | | 12/21/2013. | LABORATORY | | | SERVICES, CORE | + + + + + + + + | Performing | Address | City/State/Zipcode | Phone Number | | Organization | | | | + + + + + | [facility] | [address] | [place] [address] | | | SERVICES, CORE | [address] | | | + + + + + MAGNESIUM, PLASMA (07/23/2016 10:33 AM PST) + +-------+ + + + | Component | Value | Ref Range | Performed | Pathologist | | | | | At | Signature | + +-------+ + + + | MAGNESIUM,P | 2.5 | 1.8 - 2.5 mg/dL | [facility] [...] | + + + + + | [facility] | [address] | [place] [address] | | | SERVICES, CORE | PARK [...] [facility] | [address] | [place] [address] | | | KAVITA, CAM | [address] | | | [...] | | | LABORATORY | | | ZAMBIAN | | | SERVICES, | | | [...] | + + + + + | [facility] | [address] | [place] [address] | | | SERVICES, CORE | SHANIA [...] | + + + + + | [facility] | [address] | [place] [address] | | | SERVICES, CORE | SHANIA [...] - | | | | | | [facility] | | + + + + + + + + | Specimen | + + | Blood - Blood | | (substance) | + + + + + + + | Performing | Address | City/State/Zipcode | Phone Number | | Organization | | | | + + + + + | [facility] | [address] | [place] [address] | | | [place] | | | | + + + [...] [facility] | [address] | [place] [address] | | | SERVICES, CORE | [address] | | | + + + + + MAGNESIUM, PLASMA (07/22/2016 7:11 AM PST) + +---------+ + + + | Component | Value | Ref Range | Performed | Pathologist | | | | | At | Signature | + +---------+ + + + | MAGNESIUM,P | 1.7 (L) | 1.8 - 2.5 mg/dL | [facility] | | | LASMA | | [...] | + + + + + | [facility] | [address] | [place] [address] | | | SERVICES, CORE | PARK [...] | | | LABORATORY | | | ZAMBIAN | | | SERVICES, | | | [...] + + + + + | [facility] | [address] | [place] [address] | | | SERVICES, CORE | PARK [...] | | | | | | | 1/13/17 at 2158, mild pain, | | | [...] | | | | | 07/28/16 at 2058 | | | | | [...] | | | | Starting Thu07/29/16 at 1715, | | PM PST | [...] | | | | | 1 dose, [facility] 07/24/16 at 2045 | | | [...] PST | | | | | dose, [facility] 07/31/16 at 0945 | | | [...] PST | | | | | Starting [facility] 07/31/16 at 1337, | | | | | | | Until [facility] 07/31/16 at 1337 | | | [...] | | | | NEEDED, Starting Liliana 07/24/16 at | | | | | [...]
--- OUTSIDE RECORDS SUMMARY | ~2020-04-01 | XMS | Encounter Summary ---
Demographics + + + | Address | [address] | | | [place] [address] | + + + | Home Phone [...] Author + + + | Author | [facility] | + + + | Organization | [facility] | + + + | Address | Unknown | + + + | Phone | Unavailable | + + + Support + + + + + | Name | Relationship | Address | Phone | + + + + + | Yennifer Batista | ECON | [address] | | | | | [place] | | | | | [address] | | + + + + + Care Team Providers + +------+ + | Care Heating Repair Technician Name | Role | Phone [...] | | | [address] | [place], [place] | stricture; S/P | | | | [facility], | [address] | dilatation of | | | | 2nd Floor | [phone] | esophageal | | | | [facility] [place] | | stricture; Severe | | | | [address] | | protein-calorie | | | | [phone] | | malnutrition (Sen: | | | [...] Childs MD [facility] EMERG[facility] GENERAL SURGERY AT [facility] [address] Mailcode: [id number] [place] [phone] [id number] Natacha Peace MD - 08/11/2016 3:00 PM [facility] GENERAL SURGERY FOLLOW UP Author: Natacha Nelson [...] July of 2015 who was transferred from [facility]SH in Early July 2016 with 100 pound [...] clinic today after repeat esophageal dilation by GI martell rios. He is now dilated to 13mm. [...] PTT, PT IMAGING: None ASSESSMENT AND PLAN: rFanck Batista is a 55 y.o. male who [...] ssment and plan. Natacha Nelson MD Pager [phone] PGY-2 General Surgery Emergency General Surgery Team [...]
--- OUTSIDE RECORDS SUMMARY | ~2020-04-01 | XMS | Encounter Summary ---
Demographics + + + | Address | [address] | | | [place] [address] | + + + | Home Phone [...] + + + | Author | [email or web address] | + + + | Organization | [facility] [facility] | + + + | Address | Unknown | + + + | Phone | Unavailable | + + + Support + + + + + | Name | Relationship | Address | Phone | + + + + + | Yennifer Batista | ECON | [address] | | | | | [place] | | | | | [address] | | + + + + + Care Team Providers + +------+ + | Care Animal Surgeon Name | Role | Phone | [...] 2017 | | General Surgery at | [facility] | | | | | [facility] [address] [place], [place] | | | | | [address] | [address] | | | | | [facility], | | | | | | 2nd Floor | | | | | | [place], [place] | | | | | | [address] | | | | | | [phone] | | | +--------+ + + + [...] this encounter Miscellaneous Notes Telephone Encounter - Viki Bender - 08/18/2016 9:39 AM PSTAnne BANKS calling requesting to speak to provider regarding Home healthElectronically signed by Viki Bender at 08/18 9:40 AM PSTTelephone Encounter - Zay Espinoza MD - 08/16/2016 1:38 PM PSTLeft ssage with JOCELYN Rodríguez relaying the home health orders elephone Encounter - Zay Espinoza MD - 08/15/2016 8:28 PM PSTHome health (both Nursing and PT) were ordered after previous admission (discharged 08/01 ). Will call SW tomorrow to relay this Electronically signed by Zay Espinoza MD at 08/15 8:30 PM PSTTelephone Encounter - Viki Bender - 08/15/2016 2:54 PM PSTSocial wor ker Anne called. She received a call from the patients mom asking for home health. Mom stat es that Franck has been sleeping all week and barely gets 2 feedings per day. Please advise if home health has been ordered.Electronically signed by Viki Bender at 0 08/15/2016 2:55 PM PSTdocumented in this encounter Plan of Treatment Not on filedocumented as of this encounter Visit Diagnoses Not on filedocumented in this encounter"
--- OUTSIDE RECORDS SUMMARY | ~2020-04-01 | XMS | Encounter Summary ---
Demographics + + + | Address | [address] | | | [place] [address] | + + + | Home Phone [...] | Author | [facility] [employer] [facility] | + + + | Organization | [facility] [employer] [facility] | + + + | Address | Unknown | + + + | Phone | Unavailable | + + + Support + + + + + | Name | Relationship | Address | Phone | + + + + + | Yennifer Batista | ECON | [address] | | | | | [place] | | | | | [address] | | + + + + + Care Team Providers + +------+ + | Care Community Relations Liaison Name | Role | Phone | + [...] Pharmacy | | | | | | [address] | | | | | | [place], [place] | | | | | | [address] | | | | | | [phone] | | | +--------+ + + + [...]
--- OUTSIDE RECORDS SUMMARY | 2020-04-01 10:16 | XMS ---
PreManage Notification: COREEN SEGOVIA Security Radioisotope Technician Events No recent Security Events currently on file CRITERIA MET - Group Notification - [facility] - Has Care Guidelines CARE PROVIDERS SHEILA BRAY Nurse Practitioner 02/01/2019-Current PHONE: [phone] Name Unknown Clinic/Center 07/18/2019-Current PHONE: [phone] Care Guidelines exist for the following facilities: [facility] ( 10/19/2017 ) Care History Medical/Surgical 02/01/2019 [facility] \T\middot;\T\nbsp; PATIENT- [place] ELIGIBLE \T\middot;\T\nbsp; PLEASE REFER PATIENT TO [facility] FOR NON EMERGENT MEDICAL NEEDS. \T\middot;\ T\nbsp; [facility] CAN SEE PATIENTS SAME DAY FOR APTS IF PATIENT CALLS FIRST THING IN THE MORNING. 11/11/2017 [facility] - Patient was recently seen by PCP on 11/02/17. Pain is currently being managed by PCP Dr Landis. - Recently prescribed 10 hydrocodone 5/325 on 11/02/17 by PCP. - Patient currently has a referral to a GI doctor at [facility] since patient does not want to be [...] care. E.D. VISIT COUNT (12 MO.) 5 [facility]. TOTAL 5 NOTE: Visits indicate total known visits. ED/UCC VISIT TRACKING (12 MO.) 04/01/2020 10:[address] [facility] [place] TYPE: Emergency COMPLAINT: - ABD PAIN 12/15/2019 13:10 [facility] [place] TYPE: Emergency COMPLAINT: - ABDOMINAL PAIN DIAGNOSES: - Allergy to seafood - Allergy status to analgesic agent status - Constipation, unspecified - Allergy to other foods - Unspecified abdominal pain - Other senior care (current) drug therapy - Anemia, unspecified 09/06/2019 19:05 [facility] [place] TYPE: Emergency COMPLAINT: - ABD PAIN/ INJ 07/17/2019 09:52 [facility] [place] TYPE: Emergency COMPLAINT: - STOMACH PAIN, VOMITING DIAGNOSES: - Other predatory animal exterminator (current) drug therapy - Upper abdominal pain, unspecified - Acute gastritis without bleeding - Allergy status to other drugs, medicaments and biological sub - Allergy to other foods 04/11/2019 12:11 [facility] [place] TYPE: Emergency COMPLAINT: - ABD PAIN, VOMITING DIAGNOSES: - Vomiting, unspecified - Epigastric pain - Allergy to other foods - Other senior care (current) drug therapy - Allergy status to analgesic agent status INPATIENT VISIT TRACKING (12 MO.) 09/07/2019 10:19 [...] to partial versu - Cachexia - Other senior care (current) drug therapy - Unspecified intestinal obstruction, unspecified as to partial - Body mass index (BMI) 19.9 or less, adult - 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
--- NOTE | 2020-04-03 06:32 | CONS ---
[facility] [address] [place], [place] [address] Signed DATE OF CONSULTATION: 04/01/2020 CHIEF COMPLAINT: Generalized abdominal pain. HISTORY OF PRESENT ILLNESS: Franck is a 59-year-old gentleman, who has had a previous left jody-chevron incision for an adrenalectomy in 2012 at [facility]. He is also quite cachectic apparently at his baseline. There has been some concern whether or not he might have SMA syndrome. 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 Apparently that was dislodged and he had another one placed. He apparently did not demonstrate superior mesenteric artery syndrome. There was concern whether or not this could be due to adhesions. However, he presents today with generalized abdominal pain and his stomach is quite full of fluid without any fluid down in the small bowel. Whether or not he has a gastric outlet obstruction versus SMA syndrome or adhesion is not entirely clear, although it does not appear that there is much fluid down through the transverse duodenum. He came to emergency room today because of his symptoms. PAST MEDICAL HISTORY: Chronic back and neck pain. He said he has a throat narrowing, possible SMA syndrome, and possible small-bowel obstruction. PAST SURGICAL HISTORY: Includes a left open adrenalectomy, jody-chevron incision in 2012 at [facility], and he has had periumbilical feeding tube placed. SOCIAL HISTORY: He does not smoke or drink. He is with his mother, Yennifer at [phone]. His brother is Andrés at [phone]. He attends the [employer]. FAMILY HISTORY: None. REVIEW OF SYSTEMS: He had 10 systems reviewed. Unfortunately, Franck and his mother both are extremely poor historians. ALLERGIES: Shell fish, naproxen, tomato, and pepper (capsicum). MEDICATIONS: Zofran, bupropion, and protein drinks. Electronically Signed By: OSKAR MENSAH MD 04/03/20 0632 PATIENT NAME: FRANCK SEGOVIA CONSULTATION DATE OF : 64 REPORT #: [id number] PHYSICIAN: OSKAR MENSHA MD PCP: [facility] REPORT IS CONFIDENTIAL AND NOT TO BE RELEASED WITHOUT AUTHORIZATION [facility] [address] [place], [place] [address] Signed PHYSICAL EXAMINATION: VITAL SIGNS: Blood pressure is 148/92, his heart rate is 75, respiratory rate 16, temperature is 97.8. He is 100% on room air. He is 5 feet 5 inches at 45 kg. GENERAL: Franck is a 59-year-old gentleman, sitting upright in his ER bed. His mother is at the bedside. He is extremely cachectic and looks far older than his stated age. LUNGS: Generally clear to auscultation bilaterally. HEART: Regular rate and rhythm. ABDOMEN: Flat, but mildly diffusely tender throughout. He is actually complaining mostly of his NG tube, which contains particulate gastric fluid. LABORATORY DATA: His white blood count is 8.2, hemoglobin 10.8, neutrophils are 90. His BUN is 4, his creatinine 0.7, glucose 125. Liver function tests are negative. His albumin is 4.2. RADIOGRAPHIC STUDIES: A CT scan of the abdomen and pelvis shows his distended stomach. ASSESSMENT AND PLAN: Franck is a 59-year-old gentleman, who presents with possibly gastric outlet obstruction, although his upper GI earlier this year did not demonstrate that nor the SMA syndrome. He could have an adhesion, although I do not see any fluid going past the transverse duodenum. He has had an NG tube placed to suck out his stomach and he is actually complaining more of the NG tube than he is anything at this point. In the meantime, headed to the OR for another patient. The ER doctor is going to contact [facility] and [facility] to see what their previous recommendations were with respect to the above. It sounds like he was trying to gain weight in order to have some surgery related to the SMA syndrome. I will be checking back in with my ER physician after this present surgery. I have discussed this with Franck, his mom, and Dr. Potter. They have expressed understanding and agreed to above plan. Oskar Mensah MD ALB/MODL /[id number] cc: Oskar Mensah MD Electronically Signed By: OSKAR MENSAH MD 04/03/20 0632 PATIENT NAME: FRANCK SEGOVIA CONSULTATION DATE OF : 64 REPORT #: [id number] PHYSICIAN: OSKAR MENSAH MD PCP: [facility] REPORT IS CONFIDENTIAL AND NOT TO BE RELEASED WITHOUT AUTHORIZATION [address] [address] Signed [facility] Copies: OSKAR MENSAH MD ~ Electronically Signed By: OSKAR MENSAH MD 04/03/20 0632 PATIENT NAME: FRANCK SEGOVIA CONSULTATION DATE OF : 64 REPORT #: [id number] PHYSICIAN: OSKAR MENSAH MD PCP: [facility] REPORT IS CONFIDENTIAL AND NOT TO BE RELEASED WITHOUT AUTHORIZATION
== END ==
LOC: ED 10:12
DX: K56.609 Unspecified intestinal obstruction, unspecified as to partial versus complete obstruction (principal); Z91.013 Allergy to seafood; Z88.8 Allergy status to other drugs, medicaments and biological substances; Z91.018 Allergy to other foods; Z79.899 Other long term (current) drug therapy
CPT/HCPCS: 71045; 74176; 80053; 81001; 83605; 83690; 85025; 96374; 96375; 96376; 99285-25; J1170; J2405; J7030

== ENCOUNTER 2020-10-29 19:59 | Emergency (ER) | payer OTHER ==
[~2020-10-29] VITALS: Ht 160 cm; Wt 47.0 kg
--- OUTSIDE RECORDS SUMMARY | 2020-10-29 20:00 | XMS ---
PreManage Notification: COREEN SEGOVIA Security Doctor Of Nursing Practice Events No recent Security Events currently on file CRITERIA MET - Group Notification - [facility] - Has Care Guidelines CARE PROVIDERS SHEILA BRAY Nurse Practitioner 02/01/2019-[facility] PHONE: [phone] [facility] 07/18/2019-[facility] PHONE: [phone] Care Guidelines exist for the following facilities: [facility] ( 10/19/2017 ) Care History Medical/Surgical 02/01/2019 [facility] \T\middot;\T\nbsp; PATIENT- [facility] ELIGIBLE \T\middot;\T\nbsp; [facility]ERGENT [facility] NEEDS. \T\middot;\ T\nbsp; [facility] CAN SEE PATIENTS SAME DAY FOR APTS IF PATIENT CALLS FIRST THING IN THE MORNING. 11/11/2017 [facility] - Patient was recently seen by PCP on 11/02/17. Pain is currently being managed by PCP Dr Landis. - Recently prescribed 10 hydrocodone 5/325 on 11/02/17 by PCP. - Patient currently has a referral to a GI doctor at [facility] since patient does not want to [...] care. E.D. VISIT COUNT (12 MO.) 3 [facility] TOTAL 3 NOTE: Visits indicate total known visits. ED/UCC VISIT TRACKING (12 MO.) 10/29/2020 19:[facility] [place] TYPE: Emergency COMPLAINT: - STOMACH PAIN 04/01/2020 10:13 [facility] [place] TYPE: Emergency COMPLAINT: - ABD PAIN DIAGNOSES: - Allergy to seafood - Unspecified intestinal obstruction, unspecified as to partial versus complete obstruction - Other superintendent container terminal (current) drug therapy - Allergy to other foods - Unspecified abdominal pain - Allergy status to other drugs, medicaments and biological substances 12/15/2019 13:10 [facility] [place] TYPE: Emergency COMPLAINT: - ABDOMINAL PAIN DIAGNOSES: - Allergy to seafood - Allergy status to analgesic agent - Constipation, unspecified - Allergy to other foods - Unspecified abdominal pain - Other nursing home (current) drug therapy - Anemia, unspecified INPATIENT VISIT TRACKING (12 MO.) 04/01/2020 20:50 [facility] [place] TYPE: Medical Surgical COMPLAINT: - Abdominal Pain, Bowel Obstruction DIAGNOSES: 0. Unspecified intestinal obstruction, unspecified as to partial versus complete obstruction 1. Dysphagia, unspecified 1. Esophageal obstruction 2. Unspecified severe protein-calorie malnutrition 3. Body mass index [BMI] 19.9 or less, adult 4. Cachexia 5. Gastro-esophageal reflux disease with esophagitis 6. Diaphragmatic hernia without obstruction or gangrene 7. Gastritis, unspecified, without bleeding 8. Major depressive disorder, single episode, unspecified 9. Gastro-esophageal reflux disease without esophagitis 10. Other diseases of stomach and duodenum 11. Constipation, unspecified 12. Allergy to seafood 13. Allergy status to other drugs, medicaments and biological substances 14. Allergy to other foods [email or web address]
[2020-10-29] MEDS ORDERED: CETIRIZINE HCL10 MG PO (20:18)
== END 2020-10-29 21:32 | disposition home or self-care (01) ==
LOC: ED 19:59
DX: R10.13 Epigastric pain (principal); Z88.8 Allergy status to other drugs, medicaments and biological substances; Z91.013 Allergy to seafood; Z91.018 Allergy to other foods; Z79.899 Other long term (current) drug therapy
CPT/HCPCS: 80053; 81001; 83690; 85025; 99284

== ENCOUNTER 2021-01-02 08:26 | Emergency (ER) | payer OTHER ==
[~2021-01-02] VITALS: Ht 160 cm; Wt 46.7 kg
[~2021-01-02 08:26] MED LIST changes: +CETIRIZINE HCL10 MG PO
--- OUTSIDE RECORDS SUMMARY | 2021-01-02 08:36 | XMS ---
PreManage Notification: COREEN SEGOVIA Security Airline Reservation Agent Events No recent Security Events currently on file CRITERIA MET - Group Notification - [facility] - Has Care Guidelines CARE PROVIDERS SHEILA BRAY Nurse Practitioner 02/01/2019-[facility] PHONE: [phone] [facility] 07/18/2019-[facility] PHONE: [phone] Care Guidelines exist for the following facilities: [facility] ( 10/19/2017 ) Care History Medical/Surgical 10/30/2020 [facility] - CHW CONTACTED VOUCHER CLERK BENNY AT [facility] -CONCERNS FOR PATIENT CLOSE FOLLOW UP WITH PCP FOR CHRONIC ABDOMINAL PAIN. - A VIRTUAL VISIT WAS SCHEDULED FOR PATIENT WITH [facility] RECENTLY AND WHEN RN CAME TO SEE PATIENT-PATIENT WAS NOT AT HIS RESIDENCE. - [facility] VOUCHER CLERK CAN DELIVER MEDICATIONS TO PATIENT-UNABLE TO CONTACT PATIENT. - LAST GI COCKTAIL WAS REFILLED FOR PATIENT ON 10/29/20 AT [facility]. - PATIENT LAST COLONOSCOPY WAS AT [facility] 12/30/19. NO REPEAT COLONOSCOPY REQUESTED AT THAT TIME. - AN APT HAS BEEN REQUESTED BY PROVIDER SO PATIENT CAN CONTINUE TO REFILL MEDICATIONS. 02/01/2019 [facility] \T\middot;\T\nbsp; PATIENT- [facility] ELIGIBLE \T\middot;\T\nbsp; PLEASE REFER PATIENT TO [facility] FOR NON EMERGENT MEDICAL NEEDS. \T\middot;\ T\nbsp; [facility] CAN SEE PATIENTS SAME DAY FOR APTS IF PATIENT CALLS FIRST THING IN THE MORNING. 11/11/2017 [facility] - Patient was recently seen by PCP on 11/02/17. Pain is currently being managed by PCP Dr Landis. - Recently prescribed 10 hydrocodone 5/325 on 11/02/17 by PCP. - Patient currently has a referral to a GI doctor at [facility] since patient does not want [...] ED please contact Community Health WorkerIsabelle at [phone]. These are guidelines and the provider should exercise clinical judgment when providing care. E.D. VISIT COUNT (12 MO.) 3 [facility] TOTAL 3 NOTE: Visits indicate total known visits. ED/UCC VISIT TRACKING (12 MO.) 01/02/2021 08:[facility] [place] TYPE: Emergency COMPLAINT: - BACK PAIN 10/29/2020 19:59 [facility] [place] TYPE: Emergency COMPLAINT: - ABD PAIN DIAGNOSES: - Other long line teamster (current) drug therapy - Epigastric pain - Allergy status to other drugs, medicaments and biological substances - Allergy to other foods - Allergy to seafood 04/01/2020 10:13 [facility] [place] TYPE: Emergency COMPLAINT: - ABD PAIN DIAGNOSES: - Allergy to seafood - Unspecified intestinal obstruction, unspecified as to partial versus complete obstruction - Other long line teamster (current) drug therapy - Allergy to other foods - Unspecified abdominal pain - Allergy status to other drugs, medicaments and biological substances INPATIENT VISIT TRACKING (12 MO.) 04/01/2020 20:50 [facility] [place] TYPE: Medical Surgical COMPLAINT: - Abdominal [...] biological substances 14. Allergy to other foods [email or web address]
[2021-01-02] MEDS ORDERED: PREDNISONE20 MG PO (09:37)
== END 2021-01-02 10:00 | disposition home or self-care (01) ==
LOC: ED 08:26
DX: S39.012A Strain of muscle, fascia and tendon of lower back, initial encounter (principal); X50.0XXA Overexertion from strenuous movement or load, initial encounter; Z91.013 Allergy to seafood; Z88.8 Allergy status to other drugs, medicaments and biological substances; Z79.899 Other long term (current) drug therapy
CPT/HCPCS: 72100; 99283-25; J7512

== ENCOUNTER 2022-03-12 16:14 | Inpatient (IN) | payer OTHER ==
[~2022-03-12] VITALS: Ht 165.1 cm; Wt 41.6 kg
[~2022-03-12 16:14] MED LIST changes: +PREDNISONE20 MG PO
--- OUTSIDE RECORDS SUMMARY | 2022-03-12 16:22 | XMS ---
PreManage Notification: COREEN SEGOVIA Security Bilingual Manager Events No recent Security Events currently on file CRITERIA MET - Group Notification CARE PROVIDERS SHEILA BRAY Nurse Practitioner 02/01/2019-[facility] PHONE: [phone] [facility] 07/18/2019-[facility] PHONE: [phone] Care Guidelines exist for the following facilities: [facility] ( 10/19/2017 ) Care History Medical/Surgical 10/30/2020 [facility] - W CONTACTED CENTER CUSTOMER SERVICE ASSOCIATE BENNY AT [facility] -CONCERNS FOR PATIENT CLOSE FOLLOW UP WITH PCP FOR CHRONIC ABDOMINAL PAIN. - A VIRTUAL VISIT WAS SCHEDULED FOR PATIENT WITH [facility] RECENTLY AND WHEN RN CAME TO SEE PATIENT-PATIENT WAS NOT AT HIS RESIDENCE. - [facility] CENTER CUSTOMER SERVICE ASSOCIATE CAN DELIVER MEDICATIONS TO PATIENT-UNABLE TO CONTACT PATIENT. - LAST GI COCKTAIL WAS REFILLED FOR PATIENT ON 10/29/20 AT [facility]. - PATIENT LAST COLONOSCOPY WAS AT [facility] 12/30/19. NO REPEAT COLONOSCOPY REQUESTED AT THAT TIME. - AN APT HAS BEEN REQUESTED BY PROVIDER SO PATIENT CAN CONTINUE TO REFILL MEDICATIONS. 02/01/2019 [facility] \T\middot;\T\nbsp; PATIENT- [facility] ELIGIBLE \T\middot;\T\nbsp; PLEASE REFER PATIENT TO [facility] FOR NON EMERGENT MEDICAL NEEDS. \T\middot;\ T\nbsp; [facility] CAN SEE PATIENTS SAME DAY FOR APTS IF PATIENT CALLS FIRST THING IN THE MORNING. 11/11/2017 [facility] - Patient was recently seen by PCP on 11/02/17. Pain is currently being managed by PCP Dr Landis. - Recently prescribed 10 hydrocodone 5/325 on 11/02/17 by PCP. - Patient currently has a referral to a GI doctor at [facility] since patient does not want to [...] providing care. E.D. VISIT COUNT (12 MO.) 1 [facility] TOTAL 1 NOTE: Visits indicate total known visits. ED/UCC VISIT TRACKING (12 MO.) 03/12/2022 16:[facility] [place] TYPE: Emergency COMPLAINT: - ABDOMINAL PAIN INPATIENT VISIT TRACKING (12 MO.) No inpatient visits to display in this time frame [email or web address]
--- NOTE | 2022-03-13 08:02 | CONS ---
[facility] [address], [place] [address] Signed DATE OF CONSULTATION: 03/13/2022 CHIEF COMPLAINT: Vomiting. HISTORY OF PRESENT ILLNESS: Franck is a 61-year-old gentleman, well known to our medical staff. He has been dealing with what appears to be intermittent SMA syndrome for many years. He has been to multiple hospitals including our [facility] [place], [place]. He had a previous left Chevron incision for adrenalectomy. He has a small periumbilical incision and a small feeding tube site on the left side of his abdomen. Unfortunately, he is a poor historian. We do have a record from March 2020. At that time, he was having esophageal dysphagia and his SMA syndrome. Dr. Jet Rushing dilated esophageal stricture. He seemed to do better and was discharged home. He lives with his parents. He also suffers with depression. He said he has been having vomiting now for about four days. He came to the emergency room for evaluation. Once again, the CT scan is concerning for SMA syndrome. I have been asked to admit him as a general surgeon on-call. PAST MEDICAL HISTORY: 1. Intermittent SMA syndrome. 2. Severe protein calorie malnutrition. 3. Esophageal stricture due to acid reflux. 4. Depression. 5. Chronic back, neck and abdominal pain. PAST SURGICAL HISTORY: Includes the EGD in [address] Jet Rushing at Hospital with dilation of esophageal stricture. He has had a previous feeding tube placed and a previous left adrenalectomy through a chevron incision. SOCIAL HISTORY: He does not smoke or drink. He likes marijuana. He goes to the [facility]. Yennifer Batista is his mother at [phone]. FAMILY HISTORY: Not reviewed. REVIEW OF SYSTEMS: He had 10 systems reviewed and he has had nothing to add. ALLERGIES: Shellfish, naproxen, insects and bees, tomatoes and pepper. Electronically Signed By: OSKAR SALMON MD 03/13/22 0802 PATIENT NAME: FRANCK BATISTA CONSULTATION DATE OF : 64 REPORT #: [id number] PHYSICIAN: OSKAR SALMON MD PCP: [facility] REPORT IS CONFIDENTIAL AND NOT TO BE RELEASED WITHOUT AUTHORIZATION [facility] [address] [place] [id number] Signed MEDICATIONS: Prilosec, previous prednisone taper, bupropion, and sertraline. PHYSICAL EXAMINATION: VITAL SIGNS: Blood pressure is 137/91, heart rate 97, respiratory rate 14, temperature is 97.5. He is 100% on 2 L. He is 5 feet 5 inches at 41 kg (87 pounds). GENERAL: Franck is a 61-year-old gentleman, lying supine semi-recumbent in his hospital bed. He is alert, awake, and interactive. He is quite cachectic. He told me he could out breathe and therefore he had pulled out the NG tube right after it was placed. LUNGS: Clear to auscultation bilaterally. HEART: A little tachycardic. There is no murmur. ABDOMEN: Soft, flat and nontender. LABORATORY DATA: His white blood count is 8.8, hemoglobin 9.6, mean cell volume 62, BUN 14, creatinine 0.61, prealbumin slightly low at 14.5, albumin 3.4. COVID negative. Liver function tests negative. RADIOGRAPHIC STUDIES: CT scan of the abdomen and pelvis shows there is fluid in the esophagus, stomach, and down to about 3rd portion of the duodenum concerning for SMA syndrome. The angle of the SMA with the aorta is said to be 22 degrees. ASSESSMENT AND PLAN: Franck is a 61-year-old gentleman, who appears to present with intermittent recurrent SMA syndrome over many years. For reasons that are not clear, he has not been able to gain weight and he has had a previous feeding tube. He said he had an outpatient visit with our medical school just recently and there were plans to replace the feeding tube as an outpatient. He is worried about recurrent esophageal stricture because he feels pressure in that area. He has been admitted and we are going to hydrate him and reassess him over serial exams. He may need a repeat upper endoscopy and dilation. A single feeding tube in the distal jejunum unfortunately would not decompress his stomach. I have reviewed this with Franck. He has expressed understanding and agrees with the above plan. Oskar Salmon MD ALB/MODL /[id number] Electronically Signed By: OSKAR SALMON MD 03/13/22 0802 PATIENT NAME: FRANCK BATISTA CONSULTATION DATE OF : 64 REPORT #: [id number] PHYSICIAN: OSKAR SALMON MD PCP: [facility] REPORT IS CONFIDENTIAL AND NOT TO BE RELEASED WITHOUT AUTHORIZATION [address] [address] Signed cc: Rosa Elena Salmon MD Copies: OSKAR SALMON MD ~ Electronically Signed By: OSKAR SALMON MD 03/13/22 0802 PATIENT NAME: FRANCK BATISTA CONSULTATION DATE OF : 64 REPORT #: [id number] PHYSICIAN: OSKAR SALMON MD [facility]: [facility] REPORT IS CONFIDENTIAL AND NOT TO BE RELEASED WITHOUT AUTHORIZATION
[2022-03-14] MEDS ORDERED: CENTRUM CHEWAB1 EAC2 PO (11:00)
--- NOTE | 2022-03-19 15:03 | DS ---
[facility] [address], [place] [address] Signed ADMISSION DATE: 03/13/2022 DISCHARGE DATE: 03/19/2022 FINAL DIAGNOSES: 1. SMA syndrome. 2. History of chronic iron deficiency anemia. 3. History of acid reflux with distal esophageal strictures requiring dilations 3-4 times. 4. History of a left adrenalectomy in 2013 at [facility] for a benign myelolipoma. 5. A remote history of alcohol-related pancreatitis. 6. History of depression. PROCEDURES: CT scan of abdomen and pelvis. HISTORY OF PRESENT ILLNESS: Franck is a 61-year-old gentleman, well known to our local hospital. In 2013, he underwent a left adrenalectomy through a chevron incision for a benign myelolipoma at [facility]. He was known to have history of chronic alcohol-related pancreatitis. He also has had long-standing chronic iron deficiency anemia. Following his adrenalectomy, he lost over 100 pounds the following couple of years. He thinks some of that is relayed to his acid reflux and distal esophageal stricture. It sounds like it has been mild. It sounds like he has a history of H pylori in the past as well associated with the acid reflux. He has had that stricture dilated three or four times. He finally ended up on disability around 2015 or 2016. He had been back down to [facility] [employer] in [facility]. Again, he had this mild distal esophageal stricture dilated up to 13 mm with the balloon. It was about 35 cm from his incisors. The biopsies of that stricture were negative for any cancer. He also had a colonoscopy on that admission and he had a small polypoid lesion taken out of the sigmoid colon. This proved to be a benign leiomyoma. During that hospital stay, his upper GI actually did show superior mesenteric artery syndrome. However, since the CA-19 was elevated, he underwent an MRI. At that time, the angle of the SMA with the aorta was 14 degrees. Normal to be 25 degrees up to about 60 degrees. His was negative. At the same time, he had a nasoenteric feeding tube placed. That became dislodged. He has been in and out of our local hospital as well. He has been working with the [employer] intermittently. He apparently had a small periumbilical laparotomy performed locally and then a feeding jejunostomy was placed. That would consist of a Witzel tube. It would be easily accessible by ultrasound with an interventional radiologist. Unfortunately that tube became dislodged. He ended up at [facility] in March of 2020. Again he had the distal esophageal stricture Electronically Signed By: OSKAR SALMON MD 03/19/22 1503 PATIENT NAME: FRANCK SEGOVIA DISCHARGE SUMMARY DATE OF : 64 REPORT #: [id number] PHYSICIAN: OSKAR SALMON MD PCP: MEHNAZ KRUGER [facility] REPORT IS CONFIDENTIAL AND NOT TO BE RELEASED WITHOUT AUTHORIZATION [facility] [address], [place] [address] Signed dilated and was found to have a hemoglobin around 9.4. There was no obvious gastric outlet obstruction on upper endoscopy. Again, he seemed to do well and was sent home on a full liquid diet. He has been trying to work through the [facility] and with the [employer] to proceed in a more positive direction with respect to his SMA syndrome. Unfortunately, he has not been able to take enough oral intake to improve his nutritional status. Therefore, consideration for a 3rd feeding tube has been entertained. Of course, this was considered an outpatient procedure with interventional radiologist. He does have transportation down to [place] through his insurance and his [employer] [facility]. However, we do have Interventional Radiology available to us about 75 minutes away at [facility]. In the meantime, he came back into our local emergency room with his nausea and vomiting for four days. I have been asked to admit him as a general surgeon on-call. HOSPITAL COURSE: Franck was admitted as above and I had reviewed his previous records with him in detail. We had case management come and see him as well. We reviewed benefits with him in detail. He has been encouraged strongly to work with his [employer] [facility] as an outpatient. He has been hydrated and he again does quite well with clear liquids and full liquids. However, soft diet he did not tolerate. Again the angle on the CT scan from the superior mesenteric artery of the aorta is about 22 degrees. Once again he has iron-deficiency anemia with a hemoglobin of around 9.6 and a mean cell volume around 62. His prealbumin of course is low around 14.5 with an albumin on the lower side at 3.4. At this point, he is improved and would like to go home with his family. DISCHARGE PLANS AND MEDICATIONS: Franck is going to be discharged to home today with his family and he will continue on his full liquid diet with protein supplements as before. Our hospital monotype machinist actually contacted the monotype machinist at the [facility] and they discussed this in detail. It sounds like Franck need some help with his compliance and finances to obtain some of his food and some of his protein shakes. Also he had a long history of depression, I think he would benefit greatly with the help of [facility] to meet with one of the mental health professionals. He can also have a feeding tube placed at our [facility] by the interventional radiologist. He could also consider going back down the [facility] [employer] or I have contacted one of the hepatobiliary surgeons at [facility] in [place] as well. He said he would be more than happy to help him as well. Once again, Franck says he is motivated to proceed. I just think he needs to be a little more aggressive in contacting the [facility]. He has expressed understanding and would like to proceed as above. In the meantime, he should also work carefully to correct his iron deficiency anemia, probably through iron infusions. He has expressed understanding and agrees with the above plan. He can follow up my office as needed. Electronically Signed By: OSKAR SALMON MD 03/19/22 1503 PATIENT NAME: FRANCK SEGOVIA DISCHARGE SUMMARY DATE OF : 64 REPORT #: [id number] PHYSICIAN: OSKAR SALMON MD PCP: MEHNAZ KRUGER [facility] REPORT IS CONFIDENTIAL AND NOT TO BE RELEASED WITHOUT AUTHORIZATION [facility] [address], [place] [address] Signed MD DANISH Lubin/DONNAL /[id number] cc: [facility] Dr. Jiménez Copies: ~ Electronically Signed By: OSKAR SALMON MD 03/19/22 1503 PATIENT NAME: FRANCK SEGOVIA DISCHARGE SUMMARY DATE OF : 64 REPORT #: [id number] PHYSICIAN: OSKAR SALMON MD PCP: MEHNAZ KR[facility] REPORT IS CONFIDENTIAL AND NOT TO BE RELEASED WITHOUT AUTHORIZATION
== END 2022-03-19 13:19 | disposition home or self-care (01) | DRG 394 ==
LOC: ED 16:14 → MS 03-13 01:56 → CCU 03-13 01:56 → MS 03-13 11:35
PROVIDERS: ADMIT Colon & Rectal Surgery; ATTEND Colon & Rectal Surgery
DX: K55.1 Chronic vascular disorders of intestine (principal); Z68.1 Body mass index [BMI] 19.9 or less, adult; Z20.822 Contact with and (suspected) exposure to COVID-19; E87.6 Hypokalemia; E83.42 Hypomagnesemia; R62.7 Adult failure to thrive; G89.29 Other chronic pain; M54.2 Cervicalgia; M54.9 Dorsalgia, unspecified; R10.9 Unspecified abdominal pain; K21.9 Gastro-esophageal reflux disease without esophagitis; F32.A Depression, unspecified; K22.2 Esophageal obstruction; D50.9 Iron deficiency anemia, unspecified; Z87.891 Personal history of nicotine dependence; Z98.890 Other specified postprocedural states; Z91.018 Allergy to other foods; Z91.030 Bee allergy status; Z91.013 Allergy to seafood; Z88.8 Allergy status to other drugs, medicaments and biological substances; Z91.038 Other insect allergy status; Z79.52 Long term (current) use of systemic steroids; Z79.899 Other long term (current) drug therapy
CPT/HCPCS: 36415; 74174; 80048; 80053; 81001; 83690; 83735; 84100; 84134; 85025; 85060; 87502; 96375; 96376; 99285-25; C9113; J1170; J1650; J2250; J2270; J2405; J2550; J3475; J3480; J7030; J7060; J7121; Q9967; U0003

== ENCOUNTER 2022-07-04 19:28 | Emergency (ER) | payer OTHER ==
[~2022-07-04] VITALS: Ht 162.6 cm; Wt 39.1 kg
[~2022-07-04 19:28] MED LIST changes: +CENTRUM CHEWAB1 EAC2 PO
--- OUTSIDE RECORDS SUMMARY | 2022-07-04 19:36 | XMS ---
PreManage Notification: COREEN SEGOVIA Security Japanese Tutor Events No recent Security Events currently on file CRITERIA MET - Group Notification CARE PROVIDERS SHEILA BRAY Nurse Practitioner 02/01/2019-[facility] PHONE: [phone] [facility] 07/18/2019-[facility] PHONE: [phone] Care Guidelines exist for the following facilities: [facility] ( 10/19/2017 ) Care History Medical/Surgical 10/30/2020 [facility] - W CONTACTED LENS MOLD SETTER BENNY AT [facility] -CONCERNS FOR PATIENT CLOSE FOLLOW UP WITH PCP FOR CHRONIC ABDOMINAL PAIN. - A VIRTUAL VISIT WAS SCHEDULED FOR PATIENT WITH [facility] RECENTLY AND WHEN RN CAME TO SEE PATIENT-PATIENT WAS NOT AT HIS RESIDENCE. - [facility] LENS MOLD SETTER CAN DELIVER MEDICATIONS TO PATIENT-UNABLE TO CONTACT PATIENT. - LAST GI COCKTAIL WAS REFILLED FOR PATIENT ON 10/29/20 AT [facility]. - PATIENT LAST COLONOSCOPY WAS AT [facility] 12/30/19. NO REPEAT COLONOSCOPY REQUESTED AT THAT TIME. - AN APT HAS BEEN REQUESTED BY PROVIDER SO PATIENT CAN CONTINUE TO REFILL MEDICATIONS. 02/01/2019 [facility] \T\middot;\T\nbsp; PATIENT- [facility] ELIGIBLE \T\middot;\T\nbsp; PLEASE REFER PATIENT TO [facility] FOR NON EMERGENT MEDICAL NEEDS. \T\middot;\ T\nbsp; [facility] CAN SEE PATIENTS SAME DAY FOR APTS IF PATIENT CALLS FIRST THING IN THE MORNING. 11/11/2017 [facility] - Patient was recently seen by PCP on 11/02/17. Pain is currently being managed by PCP Dr Landis. - Recently prescribed 10 hydrocodone 5/325 on 11/02/17 by PCP. - Patient currently has a referral to a GI doctor at [facility] since patient does not want to [...] care. E.D. VISIT COUNT (12 MO.) 2 [facility] TOTAL 2 NOTE: Visits indicate total known visits. ED/UCC VISIT TRACKING (12 MO.) 07/04/2022 19:30 [facility] [place] TYPE: Emergency COMPLAINT: - ABD PAIN AND MEDICATION REFILL 03/12/2022 16:15 [facility] TYPE: Emergency COMPLAINT: - ABDOMINAL PAIN INPATIENT VISIT TRACKING (12 MO.) 03/13/2022 01:56 [facility] [place] TYPE: Medical Surgical COMPLAINT: - SBO SECONDARY TO SMA SYNDROME DIAGNOSES: - Chronic vascular disorders of intestine - Hypomagnesemia - Other insect allergy status - Other correction (current) drug therapy - Gastro-esophageal reflux disease without esophagitis - Unspecified intestinal obstruction, unspecified as to partial versus complete obstruction - Allergy status to other drugs, medicaments and biological substances - senior living (current) use of systemic steroids - Hypokalemia - Other chronic pain - Body mass index [BMI] 19.9 or less, adult - Allergy to seafood - Bee allergy status - superintendent container terminal (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) use of systemic steroids - Hypomagnesemia - Unspecified abdominal pain - Dorsalgia, unspecified - Other specified postprocedural states - Gastro-esophageal reflux disease without esophagitis - Allergy to other foods - Contact with and (suspected) exposure to COVID-19 - Allergy to other foods - Body mass index [BMI] 19.9 or less, adult - Cervicalgia - Esophageal obstruction - Chronic vascular disorders of intestine - Other specified postprocedural states - Allergy status to other drugs, medicaments and biological substances - Personal history of nicotine dependence - Depression, unspecified - Adult failure to thrive - Bee allergy status - Hypokalemia - Adult failure to thrive - Other chronic pain - Allergy to seafood - Personal history of nicotine dependence - Cervicalgia - Dorsalgia, unspecified - Esophageal obstruction - Contact with and (suspected) exposure to COVID-19 - Other correction (current) drug therapy - Iron deficiency anemia, unspecified - Other insect allergy status - Depression, unspecified - Iron deficiency anemia, unspecified - Unspecified abdominal pain [email or web address]
[2022-07-04] MEDS ORDERED: ACETAMINOPHEN325 M1 PO (19:53)
[2022-07-04] MEDS ORDERED: OMEPRAZOLE20 MG PO (23:32)
== END 2022-07-04 23:54 | disposition home or self-care (01) ==
LOC: ED 19:28
DX: K21.9 Gastro-esophageal reflux disease without esophagitis (principal); Z87.891 Personal history of nicotine dependence; Z91.013 Allergy to seafood; Z88.6 Allergy status to analgesic agent; Z91.018 Allergy to other foods; Z91.030 Bee allergy status
CPT/HCPCS: 36415; 74174; 80053; 81003; 83690; 85025; 96361; 96375; 99284-25; C9113; J1170; J2405; J7121

== ENCOUNTER 2025-01-08 00:22 | Emergency (ER) | payer OTHER ==
[~2025-01-08] VITALS: Ht 162.6 cm; Wt 56.3 kg
[~2025-01-08 00:22] MED LIST changes: +ACETAMINOPHEN325 M1 PO
[2025-01-08] MEDS ORDERED: IBLOOD GLUCOSE TEST STRIP 1 EA TEST VI ONE (01:00)
[2025-01-08 01:11] LABS: BASOPHILS 1.1 % (0.2-1.2); EOSINOPHILS 10.9 % (0.8-7.0); HEMATOCRIT 36.8 % (40.1-51.0); HEMOGLOBIN 10.8 g/dL (13.7-17.5); LYMPHOCYTES 18.9 % (21.8-53.1); MCH 20.6 PG (25.7-32.2); MCHC 29.3 g/dL (32.3-36.5); MCV 70.1 fL (79.0-92.2); MONOCYTES 9.2 % (5.3-12.2); NEUTROPHILS 59.1 % (34.0-67.9); PLATELET COUNT 394 K/uL (163-337); RBC 5.25 M/uL (4.63-6.08)
[2025-01-08] MEDS ORDERED: NALOXONE HCL 0.4 MG SYR IV ONE (01:15)
[2025-01-08 01:18] LABS: ALBUMIN 3.4 g/dL (3.4-5.0); ALBUMIN/GLOBULIN RATIO 0.74 (1.1-2.4); ANION GAP 14.6 (7-21); BILIRUBIN, TOTAL 0.2 mg/dL (0.2-1.0); BUN/CREATININE RATIO 1.35 (6.0-28.6); CALCIUM 8.2 mg/dL (8.5-10.1); CREATININE, SERUM 0.74 mg/dL (0.70-1.30); POTASSIUM 3.6 mmol/L (3.5-5.1)
[2025-01-08] MEDS ORDERED: THIAMINE HCL 200 MG/2 ML VIAL IV ONE (01:45)
[2025-01-08] MEDS ORDERED: LACTATED RINGER'S 1,000 ML IV ONE (02:30)
[2025-01-08 04:20] LABS: BILIRUBIN, URINE NEGATIVE (negative); BLOOD/HGB, URINE NEGATIVE (Negative); KETONE, URINE NEGATIVE (Negative); LEUK ESTERASE, URINE NEGATIVE (negative); NITRITE, URINE NEGATIVE (negative); PH, URINE 6.5 (5-7)
[2025-01-08 04:34] LABS: AMPHETAMINES, URINE NEGATIVE (NEGATIVE); BARBITURATES, URINE NEGATIVE (NEGATIVE); BENZODIAZEPINE, URINE NEGATIVE (NEGATIVE); BUPRENORPHINE, URINE NEGATIVE (NEGATIVE); CANNABINOID, URINE POSITIVE (NEGATIVE); COCAINE, URINE NEGATIVE (NEGATIVE); ECSTASY, URINE NEGATIVE (NEGATIVE); FENTANYL, URINE NEGATIVE (NEGATIVE); METHADONE, URINE NEGATIVE (NEGATIVE); OPIATES, URINE NEGATIVE (NEGATIVE); OXYCODONE, URINE NEGATIVE (NEGATIVE); PHENCYCLIDINE, URINE NEGATIVE (NEGATIVE)
[2025-01-08] MEDS ORDERED: FAMOTIDINE 20 MG/ 2 ML VIAL IV ONE (05:00)
[2025-01-08] MEDS ORDERED: ondansetron HCL 4 MG/2 ML VIAL IV ONE (05:00)
[2025-01-08 05:19] LABS: HEMATOCRIT 34.9 % (40.1-51.0); HEMOGLOBIN 10.4 g/dL (13.7-17.5)
[2025-01-08 05:45] LABS: ABO O; RH POSITIVE
[2025-01-08 05:46] LABS: ANTIBODY SCREEN NEGATIVE
[2025-01-08 08:09] VITALS: BP 109/91
--- NOTE | 2025-01-08 22:37 | EKG ---
[facility] [address] [facility] [place] [address] Signed Sinus tachycardia with occasional premature ventricular complexes Otherwise normal ECG When compared with ECG of 11-APR-2019 12:26, premature ventricular complexes are now present Nonspecific T wave abnormality no longer evident in Lateral leads Confirmed by Genia Bojorquez MD () on 01/08/2025 10:37:35 PM Electronically Signed By: GENIA BOJORQUEZ MD 01/08/25 2237 PATIENT NAME: COREEN SEGOVIA Electrocardiogram DATE OF : 64 PHYSICIAN: GENIA BOJORQUEZ MD REPORT #: [id number] REPORT IS CONFIDENTIAL AND NOT TO BE RELEASED WITHOUT AUTHORIZATION
== END 2025-01-08 08:09 | disposition home or self-care (01) ==
LOC: ED 00:22
PROVIDERS: Internal Medicine
DX: F10.129 Alcohol abuse with intoxication, unspecified (principal); Z91.013 Allergy to seafood; Z91.018 Allergy to other foods; Z88.6 Allergy status to analgesic agent; Z88.8 Allergy status to other drugs, medicaments and biological substances; Z87.891 Personal history of nicotine dependence
CPT/HCPCS: 31720; 36415; 71045; 80053; 80307; 81003; 84484; 85014; 85018; 85025; 86850; 86900; 86901; 93005; 93010; 96361; 96374; 96375; 99285-25; G0480; J2310; J2405; J3411; J7121